=== PATIENT | male | born 1940 | race Caucasian/White ===

== ENCOUNTER 2019-12-16 00:13 | Outpatient (CLI) | payer MEDICARE, SELFPAY ==
[2019-12-16 18:40] LABS: SARS-CoV-2 RNA PCR Negative
== END 2019-12-16 00:14 | disposition home or self-care (01) ==
LOC: ANHCOVIDDT 00:13
PROVIDERS: PCP Family Medicine; Visit Provider Specialist
DX: Z01.818 Encounter for other preprocedural examination (principal); Z11.59 Encounter for screening for other viral diseases
CPT/HCPCS: 87635; C9803; U0003

== ENCOUNTER 2019-12-19 05:40 | Day surgery (SDC) | payer MEDICARE, SELFPAY ==
[2019-12-18 14:47] VITALS: BMI 31.4
[2019-12-19] VITALS (8 sets, daily range): BP systolic 90–113; BP diastolic 51–62; PULSE 47–68; RESP 12–16; TEMP 36.1; O2SAT 98–100; BMI 31.8
--- NOTE | 2019-12-19 | ECHO_ITS ---
Patient Info Name: Freddy Mireles Age: 79 years : 1940 Gender: Male Ht: 74 in Wt: 248 lbs BSA: 2.45 m2 HR: 67 bpm BP: 115 / 65 mmHg Heart Rhythm: Atrial Flutter Technical Quality: Good Exam Date: 12/19/2019 10:47 AM Exam Location: [facility] Patient Status: Outpatient Admit Date: 12/19/2019 Staff Ordering Physician: Tony Miller MD Wire Coiler: Dario Shoemaker RDCS Attending Provider: Tony Miller MD Referring Physician: Paul VELAZQUEZ; Exam Type: CA echo transesophageal Study Info Indications 427.32 - Atrial flutter Complete two-dimensional, color flow and Doppler transesophageal study is performed. History/Risk Factors Atrial flutter w/ cardioversion. Procedure Details The patient arrived in a fasting state after obtaining informed consent. The transesophageal probe was passed into the posterior pharynx, mid-esophagus, distal esophagus, and gastric fundus. Imaging was performed at multiple levels. The patient tolerated the procedure well and there were no complications. The patient was transferred out of the examination area in satisfactory condition. Summary 1. The patient arrived in a fasting state after obtaining informed consent. The transesophageal probe was passed into the posterior pharynx, mid-esophagus, distal esophagus, and gastric fundus. Imaging was performed at multiple levels. The patient tolerated the procedure well and there were no complications. The patient was transferred out of the examination area in satisfactory condition. 2. The mitral valve appears to be anatomically normal there is mild to moderate mitral regurgitation. 3. The atrial septum appears to be intact and unremarkable in appearance. 4. Limited transesophageal echocardiogram done prior to cardioversion showing no evidence of left atrial thrombus. Left Atria The left atrium is markedly dilated. There was no evidence of thrombus in the left atrium or in the appendage. Atrial Septum The atrial septum appears to be intact and unremarkable in appearance. Mitral Valve The mitral valve appears to be anatomically normal there is mild to moderate mitral regurgitation. Report Signatures
--- NOTE | 2019-12-19 05:59 | ECG_ITS ---
Measurements Intervals [place] Rate: 59 P: [place]: 0 QRS: 5 QRSD: 106 T: 116 QT: 420 QTc: 419 Interpretive Statements ATRIAL FLUTTER/TACHYCARDIA WITH SLOW VENTRICULAR RESPONSE LOW QRS VOLTAGE IN PRECORDIAL LEADS NONSPECIFIC ST & T-WAVE ABNORMALITY- HIGH LATERAL LEADS BASELINE ARTIFACT- I, II, III, AVR, AVL, AVF ABNORMAL ECG Electronically Signed On 12-19-2019 8:53:36 CDT by Sanya Stewart D.O.
--- NOTE | 2019-12-19 08:40 | SUR.PREOP ---
ARRIVES VIA WC TO [facility] 5 WITH OWN HOME O2 GENERATOR ON 2L FOR SCHEDULED ANDERSON / CV W/ ANESTHESIA W/ DR. CHAVEZ. DENIES CP OR SOB ON ARRIVAL. ORIENTED TO ROOM, PROCEDURE, PLAN OF CARE. PRE EKG COMPLETED - SHOWS AFLUTTER. IV STARTED, LABS SENT, VS OBTAINED, CONSENT SIGNED. WILL MONITOR.
[2019-12-19 09:35] LABS: Blood Urea Nitrogen 34 mg/dL (9-20); Calcium 8.9 mg/dL (8.4-10.2); Carbon Dioxide 35 mmol/L (22-30); Chloride 100 mmol/L (98-107); Estimated CRCL calculation 53 ml/min; Estimated Glomerular Filt Rate 53; Glucose 121 mg/dL (75-110); Magnesium 2.4 mg/dL (1.6-2.3); Potassium 4.6 mmol/L (3.4-5.0); Sodium 137 mmol/L (137-145)
--- NOTE | 2019-12-19 10:11 | WPDANESEPPF ---
Anes - Initial Pre Proc Eval Procedure: Operation Date: 12/19/19 10:00 Proposed Procedures p Electrical Cardioversion - Tony Miller MD s Trans Esophageal Echo - Tony Miller MD Date/Time: 12/19/19 10:11 Surgeon: Tony Miller MD Pre Op Diagnosis: Atrial Fib Patient Data Age: 79 Gender: M Height: 6 ft 2 in Weight: 112.3 kg Last Vital Signs Temp 36.1 C L 12/19/19 09:00 Pulse 68 12/19/19 09:00 Resp 16 12/19/19 09:00 BP 113/62 12/19/19 09:00 Pulse Ox 100 12/19/19 09:00 Allergies Allergy/AdvReac Type Severity Reaction Status Date / Time rivaroxaban [From Xarelto] Allergy Unknown Verified 12/19/19 09:26 Home Medications Medication Instructions Recorded Confirmed Type albuterol sulfate 90 mcg/actuation 1 inhalation INHALATION Q4H 09/10/19 12/18/19 History aerosol inhaler aspirin 325 mg tablet,delayed 325 mg PO DAILY 09/10/19 12/18/19 History release finasteride 5 mg tablet 5 mg PO DAILY 09/10/19 12/18/19 History rosuvastatin 5 mg tablet 5 mg PO DAILY 09/10/19 12/18/19 History cholecalciferol (vitamin D3) 50 50 mcg PO DAILY #1 cap 09/11/19 12/18/19 Rx mcg (2,000 unit) capsule fenofibric acid (choline) 135 mg 135 mg PO DAILY 09/11/19 12/18/19 History capsule,delayed release fluticasone fur. 100 mcg-umeclid 1 inhalation INHALATION Q24H 60 09/11/19 12/18/19 Rx 62.5 mcg-vilant 25 mcg Days #60 each inhalat.powder furosemide 40 mg tablet 40 mg PO QAM 09/11/19 12/18/19 History multivitamin 1 cap PO DAILY 09/11/19 12/18/19 History omega3-dha 200 mg-epa 300 mg-othr 1 cap PO DAILY 09/11/19 12/18/19 History om3 100 mg-fish oil 1,000 mg capsule sacubitril 24 mg-valsartan 26 mg 1 tablet PO BID 09/11/19 12/18/19 History tablet solifenacin 10 mg tablet 10 mg PO DAILY 09/11/19 12/18/19 History sotalol 80 mg tablet 80 mg PO BID tablet 09/11/19 12/19/19 History pregabalin 100 mg capsule 100 mg PO TID #90 cap 09/22/19 12/18/19 Rx tamsulosin 0.4 mg capsule 0.4 mg PO DAILY #90 cap 11/07/19 12/18/19 Rx amitriptyline 10 mg tablet See Rx Instructions .ROUTE 12/03/19 12/18/19 Rx .COMPLEX #90 tablet apixaban [Eliquis] 5 mg PO BID 12/18/19 12/19/19 History metformin 500 mg PO DAILY 12/18/19 12/18/19 History Laboratory Tests 12/19/19 08:54 Sodium 137 mmol/L mmol/L (137-145) Potassium 4.6 mmol/L mmol/L (3.4-5.0) Chloride 100 mmol/L mmol/L (98-107) Carbon Dioxide 35 mmol/L H mmol/L (22-30) BUN 34 mg/dL H mg/dL (9-20) Creatinine 1.30 mg/dL mg/dL (0.7-1.3) Estim Creat Clear Calc 53 ml/min ml/min Estimated GFR 53 L (59 - ) Glucose 121 mg/dL H mg/dL (75-110) Calcium 8.9 mg/dL mg/dL (8.4-10.2) Magnesium 2.4 mg/dL H mg/dL (1.6-2.3) Patient hx anesthesia problems: none Family hx anesthesia problems: none [facility] Past Medical History Medical History Chronic respiratory failure with hypoxia and hypercapnia Coronary artery disease Hyperlipidemia Surgical History Surgical History History of angioplasty History of lumbar laminectomy Family History Family History Sibling Diabetes mellitus Mother Family history of Alzheimer's disease, Onset Age: 76 Family history of Parkinson's disease Father Family history of coronary artery disease Other Hypertension Social History Social History Smoking packs per day: 2 Smoking cigarettes per day: 40.0 Years smoked: 30 Smoking pack-years: 60.00 Smoking status: Former smoker Tobacco type: cigarettes Second hand tobacco smoke exposure: No Smoking end date: 07/30/87 Alcohol intake: current Gender identity (if verbalized by the patient): Male Anes - Eval Final PreProcedure Day of Pr
--- NOTE | 2019-12-19 11:04 | WPDCARDPROC ---
Cardiac Cath Procedure Note Date of procedure:: 12/19/19 Performing physician:: Tony Miller MD Indication:: Symptomatic atrial flutter Brief clinical history:: 79-year-old man with a history of coronary artery disease, ischemic cardiomyopathy and prior history of atrial fibrillation which was symptomatic with the breathlessness and fatigue. He presents with recurrent symptoms of this nature and is found to now be in atrial flutter. He has been maintained on antiarrhythmic therapy with sotalol. He has not been chronically anticoagulated, was started on anticoagulation last week but because of this reason esophageal echo was recommended prior to attempting cardioversion today. Procedure Procedure performed:: Transesophageal echo/cardioversion Sedation/Medication given:: Per anesthesia service, please see their note Estimated blood loss:: No blood loss Procedure note:: Patient was in the postanesthesia care unit where he was sedated by the anesthesia service. Prior to sedation he received topical benzocaine spray for oropharyngeal anesthesia. After this esophageal echo was performed easily. The ANDERSON probe was placed into the esophagus and the left atrium was imaged in several planes an good quality imaging. There was no evidence of left atrial clot the atrial appendage was visualized there was no evidence of visible thrombus in the appendage. The patient's mitral valve leaflets and aortic valve leaflets looked normal. Color Doppler demonstrated modest mitral insufficiency. Following confirmation of the absence of atrial thrombus the patient was cardioverted with 200 joules in a synchronized fashion restoring sinus rhythm. Findings:: As detailed above successful cardioversion following confirmation of no left atrial thrombus Conclusion:: Successful cardioversion of atrial flutter restoring sinus rhythm using 200 joules x1 shock Tony Miller MD [facility]
--- NOTE | 2019-12-19 13:38 | SUR.PHASEII ---
REVIEWED DISCHARGE INSTRUCTIONS W/ PT. AND COPY GIVEN. VOICED UNDERSTANDING OF ALL. DISCHARGED HOME, OUT VIA WC WITH ALL PERSONAL BELONGINGS AND HOME O2 VIA WC TO 'S WAITING VEHICLE. NO DISTRESS NOTED.
== END 2019-12-19 13:38 | disposition home or self-care (01) ==
PROVIDERS: PCP Family Medicine; Visit Provider Specialist
PROC: (CPT 93312; principal; 2019-12-19 10:00)
PROC: 5A2204Z Restoration of Cardiac Rhythm, Single (ICD-10-PCS; 2019-12-19 10:00)
DX: I48.92 Unspecified atrial flutter (principal); I25.10 Atherosclerotic heart disease of native coronary artery without angina pectoris; J96.12 Chronic respiratory failure with hypercapnia; J96.11 Chronic respiratory failure with hypoxia; E78.5 Hyperlipidemia, unspecified; Z87.891 Personal history of nicotine dependence; E66.9 Obesity, unspecified; Z68.31 Body mass index [BMI] 31.0-31.9, adult
CPT/HCPCS: 36415; 80048; 83735; 87635; 92960; 93005; 93312; 93320; 93325; C9803; J7040; U0003

== ENCOUNTER 2019-12-20 23:28 | Inpatient (IN) | payer MEDICARE, SELFPAY ==
--- NOTE | ~2019-12-20 | XR_ITS ---
XR chest port-a-cath/central DATE: 12/21/2019 03:02 INDICATION: Central line placement TECHNIQUE: Portable AP chest on 12/21/2019 at 0257 hours COMPARISON: 12/20/2019 portable AP chest at 2352 hours FINDINGS: Interval right internal jugular central venous catheter placement, catheter tip overlying s uperior vena cava. No evidence of pneumothorax. ET tube tip 3.1 cm above emilie, in satisfactory position. A nasogastric tube is noted passing into t he stomach. Relatively stable severe bilateral pulmonary infiltrates which are more prominent centrally and in th e basilar lung zones, right greater than left, suggesting pulmonary edema. Pneumonia is not excluded. Cardiac megaly. Aortic calcification. IMPRESSION: Interval right internal jugular central venous catheter placement in superior vena cava; no evidence of pneumothorax Persistent severe bilateral pulmonary infiltrates, relatively stable since 12/20/2019 Reviewed, dictated and finalized at [facility]. Reviewed, dictated and finalized at location [facility]. IMPRESSION: Interval right internal jugular central venous catheter placement i n superior vena cava; no evidence of pneumothorax Persistent severe bilateral pulmonary infiltrates, relatively stable since 12/19
--- NOTE | ~2019-12-20 | XR_ITS ---
XR abdomen NG/feed tube insert DATE: 12/21/2019 00:00 INDICATION: Nasogastric tube placement; check position TECHNIQUE: Portable AP view on 12/21/2019 at 0000 hours COMPARISON: 03/13/2019 portable AP view of the abdomen FINDINGS: A nasogastric tube is present within the gastric fundus, the proximal side-port approximate ly 8.5 cm distal to the diaphragmatic hiatus. Nonspecific upper abdominal bowel gas pattern. Lower abdomen is excluded. There is evidence of bilateral pulmonary infiltrate. IMPRESSION: NG tube in gastric fundus Reviewed, dictated and finalized at [facility]. Reviewed, dictated and finalized at location [facility]. IMPRESSION: NG tube in gastric fundus
--- NOTE | ~2019-12-20 | XR_ITS ---
EXAMINATION: XR chest 1V portable EXAM DATE: 12/22/2019 06:10 INDICATION: Respiratory failure. TECHNIQUE: Portable AP frontal chest x-ray was obtained. Comparison is made to prior examination from 12/21/2019. FINDINGS: Endotracheal tube tip is 2-3 centimeters above the emilie (ideal range is between 2 to 5 cm ). There is a right-sided IJ central venous line in position. There is a feeding tube tip also in po sition. Moderate amount of right-sided predominant acute airspace disease. Small left pleural effusion. The re is no pneumothorax suspected. The cardiomediastinal silhouette is prominent but magnified on thi s AP technique. The bones and soft tissues are unremarkable. There is been some interval improveme nt in the airspace disease. IMPRESSION: 1. Line(s) and tube(s) in position. 2. Moderate right-sided predominant airspace disease with some interval improvement. 3. Small left pleural effusion. Reviewed, dictated and finalized at location [facility]. IMPRESSION: 1. Line(s) and tube(s) in position. 2. Moderate right-sided predominant airspace disease with some interval improv ement. 3. Small left pleural effusion.
--- NOTE | ~2019-12-20 | US_ITS ---
EXAMINATION: US retroperitoneal duplex ltd EXAM DATE: 12/23/2019 18:09 INDICATION: Flash Pulmonary edema. TECHNIQUE: Multiple grayscale and Doppler images of the kidneys and renal arteries were obtained. T here is no prior study for comparison. FINDINGS: The aorta peak systolic velocity is 61 cm/s. The right renal artery peak systolic velocity is 186 cm/ s in the proximal segment, 176 cm/s in the mid segment, and 142 cm/s in the distal segment. The left renal artery peak systolic velocity is 212 cm/s in the proximal segment, 189 cm/s in the mid segment, and 173 cm/s in the distal segment. IMPRESSION: 1. Mildly elevated left renal arterial velocity proximally, may indicate greater than 50-60% stenosi s. 2. Borderline elevated right renal artery velocities. Reviewed, dictated and finalized at location A. IMPRESSION: 1. Mildly elevated left renal arterial velocity proximally, may indicate great er than 50-60% stenosis. 2. Borderline elevated right renal artery velocities.
--- NOTE | ~2019-12-20 | XR_ITS ---
EXAMINATION: XR chest 1V portable DATE: 12/23/2019 05:39 INDICATION: Pulmonary edema. Acute respiratory failure. TECHNIQUE: A single frontal view of the chest was obtained. COMPARISON: Chest single view 12/22/2019, chest CT 01/22/2017 FINDINGS: There are airspace opacities in right mid and lower lung zones and left lower lung zone. No pleural effusion or pneumothorax. The heart size is normal. The endotracheal tube tip is 3.0 cm abov e the emilie. The nasogastric tube tip is in the stomach. A right internal jugular central venous cat heter is seen with tip in the superior vena cava. IMPRESSION: 1. Airspace opacities in right mid and lower lung zones and left lower lung zone with interval improv ement on the right, consistent with pulmonary edema versus pneumonia. Reviewed, dictated and finalized at location A. IMPRESSION: 1. Airspace opacities in right mid and lower lung zones and left lower lung zon e with interval improvement on the right, consistent with pulmonary edema versu s pneumonia.
--- NOTE | ~2019-12-20 | XR_ITS ---
EXAMINATION: XR chest 1V portable DATE: 12/24/2019 06:00 INDICATION: Pulmonary edema. Acute respiratory failure. TECHNIQUE: A single frontal view of the chest was obtained. COMPARISON: Chest single view 12/23/2019, chest CT 01/22/2017 FINDINGS: There are airspace opacities at left lung base. No pleural effusion or pneumothorax. The he art size is normal. There is a prominent left paracardial fat pad. A right internal jugular central v enous catheter is seen with tip in the superior vena cava. IMPRESSION: 1. Airspace opacities at left lung base with improvement, consistent with atelectasis versus pneumoni a. Reviewed, dictated and finalized at location A. IMPRESSION: 1. Airspace opacities at left lung base with improvement, consistent with atele ctasis versus pneumonia.
--- NOTE | ~2019-12-20 | XR_ITS ---
XR chest ET placement DATE: 12/21/2019 00:00 INDICATION: Respiratory failure. Intubation. TECHNIQUE: Portable AP chest on 12/20/2019 at 2352 hours COMPARISON: 03/16/2019 portable AP chest at 0542 hours FINDINGS: ET tube tip is in satisfactory position approximately 4.5 cm above emilie. A nasogastric tu be is noted passing into the stomach, the distal portion excluded from this chest radiograph. There are severe bilateral pulmonary infiltrates which are more prominent centrally suggesting pulmon ana rosa edema. Mild prominence of the minor fissure suggests subpleural edema. Kev B-lines suggest pul monary interstitial edema. There is minimal if any pleural effusion. No pneumothorax. Heart size appears within normal limits. There is aortic arch calcification. IMPRESSION: Severe bilateral pulmonary infiltrates, predominating centrally, suggesting pulmonary natacha ma. Pneumonia is not excluded ET tube in satisfactory position Reviewed, dictated and finalized at [facility]. Reviewed, dictated and finalized at location A. IMPRESSION: Severe bilateral pulmonary infiltrates, predominating centrally, grayson ggesting pulmonary edema. Pneumonia is not excluded ET tube in satisfactory position
[2019-12-20 23:24] VITALS: BP 153/80; PULSE 81; RESP 25; TEMP 35.9; O2SAT 81
[2019-12-20 23:25] VITALS: O2SAT 84
--- NOTE | 2019-12-20 23:35 | ECG_ITS ---
Measurements Intervals [place] Rate: 85 P: 98 [place]: 205 QRS: 40 QRSD: 116 T: 55 QT: 351 QTc: 418 Interpretive Statements SINUS RHYTHM INTRAVENTRICULAR CONDUCTION DELAY LOW QRS VOLTAGE IN PRECORDIAL LEADS BORDERLINE R WAVE PROGRESSION, ANTERIOR LEADS BORDERLINE ST-T WAVE ABNORMALITY- INF/LAT LEADS BASELINE WANDER- I, II, AVR, AVL, AVF, V1, V3 BORDERLINE ECG Electronically Signed On 12-21-2019 7:24:28 CDT by Sanya Stewart D.O.
--- NOTE | 2019-12-20 23:44 | ED.SOB ---
HPI - SOB/Dyspnea General Chief Complaint: Shortness of Breath/Dyspnea Stated Complaint: resp distress Time Seen by Provider: 12/20/19 23:35 Related Data Home Medications Medication Instructions Recorded Confirmed finasteride 5 mg tablet 5 mg PO DAILY 09/10/19 12/21/19 rosuvastatin 5 mg tablet 5 mg PO DAILY 09/10/19 12/21/19 fenofibric acid (choline) 135 mg 135 mg PO DAILY 09/11/19 12/21/19 capsule,delayed release furosemide 40 mg tablet 40 mg PO BID 09/11/19 12/21/19 multivitamin 1 cap PO DAILY 09/11/19 12/21/19 omega3-dha 200 mg-epa 300 mg-othr 1 cap PO BID 09/11/19 12/21/19 om3 100 mg-fish oil 1,000 mg capsule sacubitril 24 mg-valsartan 26 mg 1 tablet PO BID 09/11/19 12/21/19 tablet solifenacin 10 mg tablet 10 mg PO HS 09/11/19 12/21/19 sotalol 80 mg tablet 80 mg PO BID tablet 09/11/19 12/21/19 Eliquis 5 mg PO BID 12/18/19 12/21/19 metformin 2,000 mg PO DAILY 12/18/19 12/21/19 Trelegy Ellipta 1 inh INHALATION DAILY 12/19/19 12/21/19 amitriptyline 10 mg PO 1500 12/19/19 12/21/19 clopidogrel 75 mg PO DAILY 12/19/19 12/21/19 cyanocobalamin (vitamin B-12) 500 mcg PO DAILY 12/19/19 12/21/19 [Vitamin B-12] aspirin [Adult Low Dose Aspirin] 81 mg PO DAILY 12/21/19 12/21/19 Allergies Allergy/AdvReac Type Severity Reaction Status Date / Time rivaroxaban [From Xarelto] Allergy Intermediate Hives Verified 12/21/19 00:42 [facility] Past Medical History Medical History Atrial fibrillation Chronic respiratory failure with hypoxia and hypercapnia Coronary artery disease Diabetes mellitus Diastolic heart failure H/O: HTN (hypertension) Hyperlipidemia Surgical History Surgical History History of angioplasty History of lumbar laminectomy Family History Family History Sibling Diabetes mellitus Mother Family history of Alzheimer's disease, Onset Age: 76 Family history of Parkinson's disease Father Family history of coronary artery disease Hypertension Cerebrovascular accident Chronic obstructive pulmonary disease Congestive heart failure Social History Social History Smoking packs per day: 2 Smoking cigarettes per day: 40.0 Years smoked: 30 Smoking pack-years: 60.00 Smoking status: Former smoker Tobacco type: cigarettes Second hand tobacco smoke exposure: No Smoking end date: 07/30/87 Alcohol intake: current Drinks per week: 1 Substance use: never Gender identity (if verbalized by the patient): Male Spiritual care concerns: No Course Vital Signs Vital signs: Vital Signs Temperature 35.9 C L 12/20/19 23:24 Pulse Rate 81 12/20/19 23:24 Respiratory Rate 25 H 12/20/19 23:24 Blood Pressure 153/80 H 12/20/19 23:24 Pulse Oximetry 81 L 12/20/19 23:24 Temperature 36.3 C L 12/21/19 04:00 Pulse Rate 47 L 12/21/19 06:00 Respiratory Rate 18 12/21/19 06:00 Blood Pressure 91/57 L 12/21/19 06:00 Pulse Oximetry 100 12/21/19 06:00 Procedures Intubation Intubation #1: sedative: Etomidate Mg Given: 20 paralytic: Rocuronium Mg Given: 50 Laryngoscope: Brijesh Tube Size (cm): 8.0 Method of Intubation: orotracheal Number of Attempts: 1 Tube Placement Confirmation: visualized tube passing through cords, equal breath sounds bilaterally, no breath sounds over epigastrium and confirmation by capnometry Patient Tolerated Procedure: well Intubation Complications: none MDM - SOB/Dyspnea Lab Data Attestation: I reviewed the patient's lab results. Result diagrams: 12/21/19 04:38 12/21/19 04:38 Labs: Lab Results 12/20/19 12/20/19 12/21/19 Range/Units 23:42 23:42 00:06 WBC (4.5-10.0) K/mm3 RBC (4.6-6.20) M/mm3 Hgb
[2019-12-20 23:58] VITALS: PULSE 77; O2SAT 93
[2019-12-21] VITALS (34 sets, daily range): BP systolic 71–133; BP diastolic 43–86; PULSE 47–73; RESP 16–24; TEMP 36.3–37.2; O2SAT 95–100
--- NOTE | 2019-12-21 00:02 | PC.NURSE ---
Addendum entered by Sheridan Mccain RN 12/21/19 00:55: ALL ORDERS IN THIS NOTE EXECUTED PER RBVO FROM EDP DR WATTS. Original Note: LATE ENTRY NOTE; AT 2329 20 MG ETOMIDATE GIVEN IVP VIA LEFT FOREARM #18 G IV, THEN AT 2330 50MG ROCURONIUM GIVEN IVP VIA LEFT FOREARM #18 G IV. AT 2331 PT INTUBATED BY EDP DR WATTS SUCCESSFULLY ON FIRST ATTEMPT WITH 8.0 ETT TO 28 AT THE LIP. RT AT BEDSIDE SECURING ETT, GOOD COLOR CHANGE ON CO2 DETECTOR NOTED AND +BREATH SOUNDS AUSCULTATED BILATERALLY. AT 2334 4MG VERSED GIVEN IVP VIA LEFT FOREARM #18G IV, AND AT 2337 DIPROVAN GTT STARTED VIA RAC #18G IV AT A RATE OF 5MCG/KG/MIN.
[2019-12-21 00:13] LABS: NT Pro B Type Natriuretic Pept 868 PG/ML (5-100)
[2019-12-21 00:16] LABS: Alveolar/Arterial O2 Gradient 576.6 mmHg; Base Excess ABG 0.8 mEq/l (+/-2.0); Carboxyhemoglobin 0.8 % THb (0-2.0); Fractional Inspired Oxygen 100 %; HCO3 ABG 28.6 mEq/l (22.0-26.0); Oxygen Content ABG 15.6 %vol (16.0-22.0); Oxygen Saturation ABG 93.3 % (95.0-100.0); Oxyhemoglobin 90.7 % THb (90.0-100.0); PO2 ABG 75.5 mmHg (80.0-100.0); PO2 FiO2 Ratio Arterial Blood 0.75 %; Reduced Hemoglobin 8.5 %THb (0-5.0); Total Hemoglobin 12.2 g/dL (12.0-18.0)
[2019-12-21 00:17] LABS: pH ABG 7.289 (7.350-7.450)
--- NOTE | 2019-12-21 00:17 | PC.NURSE ---
DIPROVAN GTT INCREASED TO 7.5MCG/KG/MIN FOR PT AGITATION.
[2019-12-21 00:18] LABS: Device VENTILATOR; Modified Allen's Test Pass; PCO2 ABG 60.9 mmHg (35.0-45.0); Site Drawn RIGHT RADIAL
[2019-12-21 00:19] LABS: Troponin I 0.013 ng/mL (0.000-0.034)
[2019-12-21 00:19] LABS: Arterial Blood Gas PEEP 5 cmH2O; Arterial Blood Gas Tidal Volume 500 ml; Arterial Blood Gas Vent Mode CMV; Arterial Blood Gas Ventilator rate 18 /MIN
[2019-12-21 00:20] LABS: Basophils Percent Auto 0.1 % (0.2-1.2); Eosinophils Percent Auto 0.2 % (0-4.4); Hematocrit 38.7 % (42.0-52.0); Hemoglobin 12.5 g/dL (14.0-18.0); Immature Granulocyte Absolute 0.07 K/mm3 (0.00-0.031); Immature Granulocyte Percent A 0.7 % (0-0.5); Lymphocytes Absolute Auto 1.64 K/mm3 (0.9-3.2); Lymphocytes Percent Auto 16.3 % (18.3-44.2); Mean Corpuscular HGB Conc 32.3 g/dl (32-36); Mean Corpuscular Hemoglobin 36.8 pg (26-34); Mean Corpuscular Volume 113.8 fl (80-100); Mean Platelet Volume 10.6 fl (7.4-10.4); Monocytes Absolute Auto 0.8 K/mm3 (0.1-0.6); Monocytes Percent Auto 8.3 % (2.6-8.5); Neutrophils Absolute Auto 7.5 K/mm3 (1.3-6.7); Neutrophils Percent Auto 74.4 % (45.5-73.1); Platelet Count Result 164 k/mm3 (150-375); Red Cell Distribution Width 14.1 % (11.5-14.5); White Blood Count 10.1 K/mm3 (4.5-10.0)
--- NOTE | 2019-12-21 00:22 | PC.NURSE ---
DIPROVAN DRIP INCREASED TO 10 MCG/KG/MIN AT THIS TIME FOR PT AGITATION.
[2019-12-21] MEDS: FUROSEMIDE INJ 40 MG/4 ML VIAL IV PUSH ×2 (00:28→08:32)
[2019-12-21 00:29] LABS: INR 1.1
[2019-12-21 00:30] LABS: Lactic Acid Reflex 1.1 mmol/L (0.7-2.1); Partial Thromboplastin Time 30.7 SECONDS (22.3-36.8)
[2019-12-21 00:33] LABS: D Dimer 0.56 ug/mL (<0.48)
[2019-12-21 00:38] LABS: Alanine Aminotransferase 23 U/L (4-50); Albumin Level 4.6 g/dL (3.5-5.1); Alkaline Phosphatase 73 U/L (38-126); Aspartate Amino Transferase 35 U/L (17-59); Bilirubin,Total 0.5 mg/dL (0.2-1.3); Blood Urea Nitrogen 50 mg/dL (9-20); Calcium 8.6 mg/dL (8.4-10.2); Carbon Dioxide 31 mmol/L (22-30); Chloride 97 mmol/L (98-107); Estimated CRCL calculation 37 ml/min; Estimated Glomerular Filt Rate 34; Glucose 182 mg/dL (75-110); Lactate Dehydrogenase 551 U/L (313-618); Potassium 5.1 mmol/L (3.4-5.0); Sodium 137 mmol/L (137-145)
--- NOTE | 2019-12-21 00:39 | PC.NURSE ---
DIPROVAN INCREASED TO 15 MCG/KG/MIN FOR PT AGITATION; CURRENT VSS: 107/57, 65HR, 20 RR, 99% SPO2 ON 100% O2 VIA VENT.
--- NOTE | 2019-12-21 00:59 | PC.NURSE ---
DIPROVAN GTT DECREASED TO 10 MCG/KG/MIN FOR B/P OF 71/44. EDP AND THIS RN AT PT'S BEDSIDE AT THIS TIME.
--- NOTE | 2019-12-21 01:01 | PC.NURSE ---
MARIMAR MARTIN PAUSED AT THIS TIME PER EDP AT BEDSIDE WITH THIS RN. CURRENT B/P 71/45.
--- NOTE | 2019-12-21 01:10 | PC.NURSE ---
DIPROVAN RESUMED AT 10 MCG/KG/MIN AT THIS TIME. PT BECAME RESTLESS DURING SUCTIONING.
--- NOTE | 2019-12-21 02:10 | ADMGEN ---
This patient, Freddy Mireles Jr., was admitted to Intensive Care Unit-3. Patient/family oriented to hospital policies and general routines including ID bracelet, bed and alarms, visiting hours, pain management, procedures, bathroom and other care routines, personal items, smoking policy, room service/diet, and visiting hours. Valuables list has been completed. Information on how to activate the Rapid Response Team has been discussed. Patient/Family are encouraged to report perceived risks to care and to ask questions if they do not understand what they are told or what they should do.
[2019-12-21] MEDS: MIDAZOLAM HCL 2 MG/2 ML VIAL IV PUSH (02:31)
--- NOTE | 2019-12-21 03:09 | P.PCNBED_ITS ---
Procedures Central Line Placement Right IJ: Central Line Date: 12/21/19 Central Line Time: 03:09 Performed Emergently - Given emergent patient condition, temporal constraints may have precluded informed consent.: Yes Time Out Performed: Yes Patient Position: supine Patient placed on monitor/pulse ox: Yes Provider Prep: mask, sterile gown, sterile gloves, Max. sterile barrier precautions, cap and hand hygiene Ultrasound used for placement: Yes Central line lumen inserted: triple [place] Citizen: 7 Length (cm): 17 Depth of Insertion (cm): 16 Post procedure: sutured in place, good blood return, all ports aspirated, flushed, capped, tegaderm, hemostatic disc and aseptic technique maintained throughout procedure Post procedure x-ray: tip of catheter in good position and no pneumothorax seen Patient tolerated procedure: well Additional comments: Date of service was 12/21/2019 at 02:50 hrs.
--- NOTE | 2019-12-21 03:11 | PM.IMHP ---
H&P: HPI History of Present Illness Chief complaint: Acute respiratory failure Narrative: This is an 79 year old male with known chronic respiratory failure known to be on 3L of home oxygen, afib on chornic anticoagulation w/ Eliquis, and diabetes mellitus who presented to the hospital with acute severe shortness of breath. The patient was found to be saturating in the 70s in the ER and was emergently intubated and placed on mechanical ventilation. No other history is obtainable as the patient is intubated on mechanical ventilation and sedated. Review of Systems Review of Systems: ROS unobtainable: Yes unobtainable due to medical condition PMF Past Medical History Medical History Atrial fibrillation Chronic respiratory failure with hypoxia and hypercapnia Coronary artery disease Diabetes mellitus Diastolic heart failure H/O: HTN (hypertension) Hyperlipidemia Surgical History Surgical History History of angioplasty History of lumbar laminectomy Family History Family History Sibling Diabetes mellitus Mother Family history of Alzheimer's disease, Onset Age: 76 Family history of Parkinson's disease Father Family history of coronary artery disease Hypertension Cerebrovascular accident Chronic obstructive pulmonary disease Congestive heart failure Social History Social History Smoking packs per day: 2 Smoking cigarettes per day: 40.0 Years smoked: 30 Smoking pack-years: 60.00 Smoking status: Former smoker Tobacco type: cigarettes Second hand tobacco smoke exposure: No Smoking end date: 07/30/87 Alcohol intake: current Drinks per week: 1 Substance use: never Gender identity (if verbalized by the patient): Male Spiritual care concerns: No Meds Home Medications and Allergies Home Medications Medication Instructions Recorded Confirmed Type finasteride 5 mg tablet 5 mg PO DAILY 09/10/19 12/21/19 History rosuvastatin 5 mg tablet 5 mg PO DAILY 09/10/19 12/21/19 History cholecalciferol (vitamin D3) 50 50 mcg PO DAILY #1 cap 09/11/19 12/21/19 Rx mcg (2,000 unit) capsule fenofibric acid (choline) 135 mg 135 mg PO DAILY 09/11/19 12/21/19 History capsule,delayed release furosemide 40 mg tablet 40 mg PO BID 09/11/19 12/21/19 History multivitamin 1 cap PO DAILY 09/11/19 12/21/19 History omega3-dha 200 mg-epa 300 mg-othr 1 cap PO BID 09/11/19 12/21/19 History om3 100 mg-fish oil 1,000 mg capsule sacubitril 24 mg-valsartan 26 mg 1 tablet PO BID 09/11/19 12/21/19 History tablet solifenacin 10 mg tablet 10 mg PO HS 09/11/19 12/21/19 History sotalol 80 mg tablet 80 mg PO BID tablet 09/11/19 12/21/19 History tamsulosin 0.4 mg capsule 0.4 mg PO DAILY #90 cap 11/07/19 12/21/19 Rx Eliquis 5 mg PO BID 12/18/19 12/21/19 History metformin 2,000 mg PO DAILY 12/18/19 12/21/19 History Trelegy Ellipta 1 inh INHALATION DAILY 12/19/19 12/21/19 History amitriptyline 10 mg PO 1500 12/19/19 12/21/19 History clopidogrel 75 mg PO DAILY 12/19/19 12/21/19 History cyanocobalamin (vitamin B-12) 500 mcg PO DAILY 12/19/19 12/21/19 History [Vitamin B-12] pregabalin 100 mg capsule 100 mg PO TID #90 cap 12/19/19 12/21/19 Rx aspirin [Adult Low Dose Aspirin] 81 mg PO DAILY 12/21/19 12/21/19 History coenzyme Q10 [CoQ-10] 200 mg PO DAILY 12/21/19 12/21/19 History Allergies Allergy/AdvReac Type Severity Reaction Status Date / Time rivaroxaban [From Xarelto] Allergy Intermediate Hives Verified 12/21/19 00:42 Vital Signs Vital Signs - 24 hr 12/20/19 23:24 12/20/19 23:25 12/20/19 23:58 Temperature 35.9 C L Pulse Rate 81 77 Respiratory Rate 25 H Blood Pressure 153/80 H Pulse Oximetry 81 L 84 L 93 12/21/19 00:15 12/21/19 00:40 12/21/19 00:43
[2019-12-21] MEDS: NOREPINEPHRINE 8 MG/D5W 250 ML 8 MG/250 ML BAG 9.4 MG IV CONT (03:52)
--- NOTE | 2019-12-21 04:01 | ADMIMU ---
This patient, Freddy Mireles Jr., was admitted to ICU status, and placed in Intensive Care Unit-3 on 12/21/19 at 0210. Patient/family oriented to hospital policies and general routines including ID bracelet, bed and alarms, visiting hours, pain management, procedures, bathroom and other care routines, personal items, smoking policy, room service/diet, and visiting hours. Valuables list has been completed. Information on how to activate the Rapid Response Team has been discussed. Patient/Family are encouraged to report perceived risks to care and to ask questions if they do not understand what they are told or what they should do.
[2019-12-21 04:30] LABS: Alveolar/Arterial O2 Gradient 502.6 mmHg; Base Excess ABG 3.4 mEq/l (+/-2.0); Carboxyhemoglobin 0.1 % THb (0-2.0); Fractional Inspired Oxygen 90 %; HCO3 ABG 29.8 mEq/l (22.0-26.0); Methemoglobin ABG 0.3 %THb (0-1.5); Oxygen Content ABG 14.6 %vol (16.0-22.0); Oxygen Saturation ABG 95.6 % (95.0-100.0); Oxyhemoglobin 93.6 % THb (90.0-100.0); PCO2 ABG 54.4 mmHg (35.0-45.0); PO2 ABG 83.3 mmHg (80.0-100.0); PO2 FiO2 Ratio Arterial Blood 0.93 %; pH ABG 7.357 (7.350-7.450)
[2019-12-21 04:31] LABS: Arterial Blood Gas PEEP 5 cmH2O; Arterial Blood Gas Vent Mode CMV; Arterial Blood Gas Ventilator rate 18 /MIN; Device VENTILATOR; Modified Allen's Test Pass; Site Drawn RIGHT RADIAL
[2019-12-21 04:32] LABS: Arterial Blood Gas Tidal Volume 500 ml
[2019-12-21 05:03] LABS: Basophils Percent Auto 0.2 % (0.2-1.2); Eosinophils Percent Auto 0.1 % (0-4.4); Hematocrit 31.3 % (42.0-52.0); Hemoglobin 10.2 g/dL (14.0-18.0); Immature Granulocyte Absolute 0.05 K/mm3 (0.00-0.031); Immature Granulocyte Percent A 0.6 % (0-0.5); Lymphocytes Absolute Auto 1.69 K/mm3 (0.9-3.2); Lymphocytes Percent Auto 19.4 % (18.3-44.2); Mean Corpuscular HGB Conc 32.6 g/dl (32-36); Mean Corpuscular Hemoglobin 37.1 pg (26-34); Mean Corpuscular Volume 113.8 fl (80-100); Mean Platelet Volume 10.8 fl (7.4-10.4); Monocytes Absolute Auto 0.8 K/mm3 (0.1-0.6); Monocytes Percent Auto 9.6 % (2.6-8.5); Neutrophils Absolute Auto 6.1 K/mm3 (1.3-6.7); Neutrophils Percent Auto 70.1 % (45.5-73.1); Platelet Count Result 159 k/mm3 (150-375); Red Blood Count 2.75 M/mm3 (4.6-6.20); Red Cell Distribution Width 14.4 % (11.5-14.5); White Blood Count 8.7 K/mm3 (4.5-10.0)
[2019-12-21 05:11] LABS: Blood Urea Nitrogen 48 mg/dL (9-20); Carbon Dioxide 31 mmol/L (22-30); Chloride 99 mmol/L (98-107); Estimated CRCL calculation 35 ml/min; Estimated Glomerular Filt Rate 34; Glucose 143 mg/dL (75-110); Magnesium 2.4 mg/dL (1.6-2.3); Potassium 5.1 mmol/L (3.4-5.0); Sodium 135 mmol/L (137-145)
[2019-12-21 08:28] LABS: Alveolar/Arterial O2 Gradient 462.9 mmHg; Base Excess ABG 4.2 mEq/l (+/-2.0); Fractional Inspired Oxygen 90 %; HCO3 ABG 30.1 mEq/l (22.0-26.0); Oxygen Content ABG 14.9 %vol (16.0-22.0); Oxygen Saturation ABG 98.4 % (95.0-100.0); Oxyhemoglobin 96.4 % THb (90.0-100.0); PCO2 ABG 50.9 mmHg (35.0-45.0); PO2 ABG 126.6 mmHg (80.0-100.0); PO2 FiO2 Ratio Arterial Blood 1.41 %; Total Hemoglobin 10.8 g/dL (12.0-18.0); pH ABG 7.389 (7.350-7.450)
[2019-12-21 08:30] LABS: Arterial Blood Gas PEEP 5 cmH2O; Arterial Blood Gas Tidal Volume 500 ml; Arterial Blood Gas Vent Mode CMV; Arterial Blood Gas Ventilator rate 18 /MIN; Device VENTILATOR; Modified Allen's Test Pass; Site Drawn RIGHT RADIAL
--- NOTE | 2019-12-21 08:58 | WPDCNINT ---
Assessment and Plan Assessment and plan (1) Acute respiratory failure with hypoxia and hypercapnia: Code(s): J96.01 - Acute respiratory failure with hypoxia; J96.02 - Acute respiratory failure with hypercapnia Status: Acute Assessment and Plan: patient presented with severe hypoxia and dyspnea requiring emergent intubation in the ER on 12/20/2019 - patient currently on CMV mode of ventilation, 90% FiO2, peep of 5. - Chest x-ray and ABGs reviewed, wean FiO2 to maintain O2 sats greater than 92%. Increased peep to 8 - bilateral diffuse infiltrates on chest x-ray, no official read at this time is available. Patient also seems to have a right middle and lower lobe consolidation - patient will be started on ceftriaxone and doxycycline - will obtain sputum culture - fentanyl and Versed for sedation, maintain RASS of 0 to -2, daily sedation vacation (2) Suspected 2019 novel coronavirus infection: Code(s): Z20.828 - Contact with and (suspected) exposure to other viral communicable diseases Status: Acute Assessment and Plan: patient is being tested for SARS-CoV-2 PCR - currently placed on droplet, airborne and contact precautions/isolation if patient is COVID-19 positive will obtain inflammatory marker (3) Shock: Code(s): R57.9 - Shock, unspecified Status: Acute Assessment and Plan: patient dropped his blood pressures post intubation, could be related to positive pressure ventilation, septic shock, medications - central line was inserted on 12/20/2019: Started on Levophed, maintain mean arterial pressures > 65 mmHg - will obtain echocardiogram - continue antibiotics as above, blood cultures, sputum cultures and urine cultures have been obtained and pending (4) Diastolic heart failure: Code(s): I50.30 - Unspecified diastolic (congestive) heart failure Status: Acute Assessment and Plan: history of diastolic dysfunction, echocardiogram from 09/17/2018 showed normal LV systolic function, EF 60%, grade 2 diastolic dysfunction, moderate to severe enlargement of the left atrium, mild mitral valve regurg, - continue diuresis at this time (5) Atrial fibrillation: Qualifiers: Atrial fibrillation type: unspecified Qualified Code(s): I48.91 - Unspecified atrial fibrillation Code(s): I48.91 - Unspecified atrial fibrillation Status: Chronic Assessment and Plan: history of atrial fibrillation, currently in sinus bradycardia - will restart Eliquis - will have Cardiology evaluate the patient - patient was cardioverted with 200 joules at in a synchronized fashion restoring sinus rhythm on 12/19/[address] 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 insulin use: without service parts driver use Diabetes mellitus type: type 2 Qualified Code(s): E11.9 - Type 2 diabetes mellitus without complications Code(s): E11.9 - Type 2 diabetes mellitus without complications Status: Chronic Assessment and Plan: continue Accu-Cheks and sliding scale insulin (7) Hyperlipidemia: Qualifiers: Hyperlipidemia type: unspecified Qualified Code(s): E78.5 - Hyperlipidemia, unspecified Code(s): E78.5 - Hyperlipidemia, unspecified Status: Chronic Assessment and Plan: restart rosuvastatin (8) Essential hypertension: Code(s): I10 - Essential (primary) hypertension Status: Acute Assessment and Plan: history of essential hypertension, will hold all antihypertensives at this time as patient is in shock and Levophed (9) COPD (chronic obstructive pulmonary disease): Qualifiers: COPD type: unspecified COPD Qualified Code(s): J44.9 - Chronic obstructive pulmonary disease, unspecified Code(s): J44.9 - Chronic ob
[2019-12-21] MEDS: PANTOPRAZOLE SODIUM IV 40 MG VIAL IV PUSH (12:23)
[2019-12-21] MEDS: CLOPIDOGREL BISULFATE 75 MG TABLET PO (12:23)
[2019-12-21] MEDS: APIXABAN 5 MG TABLET PO ×2 (12:24→21:21)
[2019-12-21] MEDS: ROSUVASTATIN 5 MG TABLET PO (12:24)
[2019-12-21 12:47] LABS: Glucose Point of Care 155 (65-105)
[2019-12-21] MEDS: ALBUTEROL SULFATE NEB 2.5 MG/0.5 ML INH 5 MG INHALATION ×2 (14:01→21:06)
[2019-12-21] MEDS: IPRATROPIUM BR 0.02% INH SOLN 0.5 MG/2.5 ML VIAL INHALATION ×2 (14:01→21:06)
--- NOTE | 2019-12-21 15:13 | PM.CNCAR ---
Assessment and Plan Additional Plan Elderly white male with the above complex history of coronary disease, atrial fibrillation presenting with what appears to be abrupt pulmonary edema. The patient has had a number of these admissions over the last couple of years and frankly it is poorly understood to me. He does not appear to have evidence recurrent left main stenosis when he was brought back to the dentures lab technician after this. Of course that could be an issue since that angiogram was approximately a year ago. He does not appear to have recurrent atrial fib he is in sinus rhythm after being cardioverted on Sunday. His ANDERSON at that time did not show his mitral valve regurgitation to be severe enough to explain this. This patient I have known for a long time I do not believe we have a compliance issue regarding his medication he seems to be very compliant in taking all of his medications as prescribed. Obviously at this point he requires diuresis and hopefully eventual extubation. He does have an element of acute on chronic renal insufficiency with creatinine increasing from Sunday to this admission. Once again I do not think this is enough to explain profound severe acute pulmonary edema. Hopefully the patient's COVID assay will be negative as his prognosis would be grave if Coronavirus is the reason for this History of Present Illness History of Present Illness Consult date/time: Date of service: 12/21/19 15:13 Consult reason: congestive heart failure Reason For Visit: Acute respiratory failure Narrative: This is an interesting but unfortunate 79-year-old man that I am seeing at the request of the hospitalist an intensive care staff because of respiratory failure and what appears to be severe pulmonary edema. The patient is well known to me and a number of other physicians in our practice and here at [facility]. He has a long history of coronary artery disease and a history of atrial fibrillation. The patient was apparently in his usual state of weak but some but essentially stable health when he suddenly noticed severe air hunger he came to the emergency room last night and was in extremis with hypoxemia oxygen saturation was in the 70s. He was emergently intubated in the emergency department because of respiratory extremis. His chest x-ray appears to show severe pulmonary edema. Some of the physicians are concerned that he might also have a right lower lobe/right middle lobe consolidation. The patient was of course sedated and brought to the ICU for further evaluation and management. He is currently sedated in the ICU and therefore obviously no direct history is available. In summary he has a long history of coronary artery disease. 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 The patient also had an LAD intervention done in August of 1999. He did well for a long time after that. The patient in 2018 had a couple of admissions at this hospital with severe pulmonary edema. He was treated medically and brought back to the cardiac dentures lab technician at that time and found to have high-grade stenosis in the left main coronary artery as well as in the midportion of the RCA. He was referred to [facility] for anticipated surgical revascularization. When he arrived there he was felt by those physicians to be excessively high risk for surgery and he underwent a LAD and left main luciana guided stent by the interventional medical cost consultant at [facility]. He was sent back to my office for follow-up after that. He also has a history of atrial fibrillation and at times has had recurrences of atrial fib which would typically result in him being more short of breath and there has been a couple of attempts at cardioverting him back to sinus rhythm. He was maintaining sinus rhythm and was bradycardic on the sotalol dosage and so the dosage was reduced to 40 mg q.12 hours so
--- NOTE | 2019-12-21 17:40 | PM.IMPN ---
Progress Note: A&P Assessment and Plan (1) Acute respiratory failure with hypoxia and hypercapnia: Code(s): J96.01 - Acute respiratory failure with hypoxia; J96.02 - Acute respiratory failure with hypercapnia Status: Acute Assessment and Plan: Continue ventilatory support w/ mechanical ventilation. . Continue treatment for CHF which is felt to be the etiology of the respiratory failure but empirically treated with antibiotics as well as ruling out COVID. . (2) Acute heart failure with preserved ejection fraction (HFpEF): Code(s): I50.31 - Acute diastolic (congestive) heart failure Status: Acute Assessment and Plan: Continue IV lasix. Preserved ventricular function by previous echoes. 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 (4) Atrial fibrillation: Qualifiers: Atrial fibrillation type: unspecified Qualified Code(s): I48.91 - Unspecified atrial fibrillation Code(s): I48.91 - Unspecified atrial fibrillation Status: Chronic Assessment and Plan: Continue Elquis therapy., sotalol held initially with bradycardia. Status post kezia cardioversion 12/19/19 (5) H/O: HTN (hypertension): Code(s): Z86.79 - Personal history of other diseases of the circulatory system Status: Chronic Assessment and Plan: Hold home antihypertensives with hypotension (6) COPD (chronic obstructive pulmonary disease): Qualifiers: COPD type: unspecified COPD Qualified Code(s): J44.9 - Chronic obstructive pulmonary disease, unspecified Code(s): J44.9 - Chronic obstructive pulmonary disease, unspecified Status: Chronic Assessment and Plan: We will continue scheduled bronchodilators. (7) Hyperlipidemia: Qualifiers: Hyperlipidemia type: unspecified Qualified Code(s): E78.5 - Hyperlipidemia, unspecified Code(s): E78.5 - Hyperlipidemia, unspecified Status: Chronic Assessment and Plan: Resume Crestor PO. (8) Acute kidney injury: Code(s): N17.9 - Acute kidney failure, unspecified Status: Acute Assessment and Plan: Monitor closely creatinine typically 1 to 1.3 (9) DVT prophylaxis: Code(s): Z29.9 - Encounter for prophylactic measures, unspecified Status: Acute Assessment and Plan: On Eliquis Subjective Date/time seen: 12/21/19 17:40 Interval history: Date of visit 12/20. 79-year-old hypertensive type 2 diabetic with paroxysmal AFib status post cardioversion after KEZIA 12/19/2019 presented with acute onset shortness of breath found to be in pulmonary edema hypoxic and was intubated and transferred to the ICU. Was hypotensive and pressors were started. Diuresing, cultured and an empiric antibiotics. Exam Narrative: Exam Narrative: Blood pressure 118/52 pulse 52 regular sat 100% on FiO2 of 60% with 8 of temp Pupils equal reactive Lungs faint basilar crackle on the right CV regular rate rhythm her no murmurs Abdomen is soft obese nontender bowel sounds present Extremities without edema distal pulses 2+ dorsalis pedis Neuro sedated but opens eyes Integument no skin breakdown rashes Objective Data Vital Signs Vital Signs: Vital Signs - 24 hr 12/20/19 23:24 12/20/19 23:25 12/20/19 23:58 Temperature 35.9 C L Pulse Rate 81 77 Respiratory Rate 25 H Blood Pressure 153/80 H Pulse Oximetry 81 L 84 L 93 12/21/19 00:15 12/21/19 00:40 12/21/19 00:43
[2019-12-21 17:51] LABS: Glucose Point of Care 141 (65-105)
[2019-12-22] VITALS (26 sets, daily range): BP systolic 93–115; BP diastolic 42–59; PULSE 42–76; RESP 18–23; TEMP 36.5–37.2; O2SAT 90–100
--- NOTE | 2019-12-22 | ECHO_ITS ---
Patient Info Name: Freddy Mireles Age: 79 years : 1940 Gender: Male Ht: 72 in Wt: 231 lbs BSA: 2.33 m2 HR: 45 bpm BP: 105 / 44 mmHg Heart Rhythm: Bradycardia Technical Quality: Good Exam Date: 12/22/2019 8:36 AM Exam Location: [facility] Patient Status: Inpatient Admit Date: 12/21/2019 Staff Ordering Physician: Edwardo Solorzano MD System Safety Engineer: Dario Shoemaker RDCS Attending Provider: Iglesia Boogie MD Referring Physician: Rashad DANIELS; Exam Type: CA echo doppler color flow Study Info Indications I50.9 - Heart failure, unspecified Complete two-dimensional, color flow and Doppler transthoracic echocardiogram is performed. Strain analysis performed. History/Risk Factors Acute respiratory failure; pulmonary edema, CHF, Aflutter s/p cardioversion, CAD, DM, HTN. Summary 1. Left ventricular systolic function is normal, estimated at 55-60%. 2. The left ventricular diastolic function is grade II diastolic dysfunction. 3. The base of the inferior and posterior montelongo are akinetic the remainder of the ventricle contracts well. 4. Left atrial chamber dimension is severely enlarged. 5. There is mild to moderate mitral valve regurgitation. 6. Compared to echocardiogram done in February of 2019 there are no substantial changes. Left Ventricle Left ventricular chamber dimension is normal. Left ventricular systolic function is normal, estimated at 55-60%. The left ventricular diastolic function is grade II diastolic dysfunction. The base of the inferior and posterior montelongo are akinetic the remainder of the ventricle contracts well. Right Ventricle Right ventricular chamber dimension is normal. Left Atria Left atrial chamber dimension is severely enlarged. Right Atria Right atrial chamber dimension is normal. Aortic Valve The aortic valve is trileaflet. There is mild aortic valve stenosis with a peak velocity of 145 cm/s, mean gradient of 4 mmHg, and aortic valve area of 3.3 cm2. Pulmonic Valve The pulmonic valve is not well visualized. Mitral Valve The mitral valve has thickened leaflets. There is mild to moderate mitral valve regurgitation. Tricuspid Valve The tricuspid valve leaflets are normal. Pericardium/Pleural The pericardium appears normal. Aorta The aortic root size at the sinus of Valsalva is normal. Left Ventricular Outflow Tract Name Value Normal LVOT 2D LVOT Diameter 2.3 cm LVOT Doppler LVOT Peak Gradient 5 mmHg LVOT Mean Gradient 2 mmHg LVOT VTI 25 cm LVOT VTI/AV VTI Ratio 0.8 LVOT Stroke Volume 104 ml LVOT CO 4.8 l/min LVOT CI 2.1 l/min/m2 Mitral Valve Name Value Normal MV Doppler
[2019-12-22 00:24] LABS: Glucose Point of Care 150 (65-105)
[2019-12-22] MEDS: ALBUTEROL SULFATE NEB 2.5 MG/0.5 ML INH 5 MG INHALATION ×4 (02:28→19:55)
[2019-12-22] MEDS: IPRATROPIUM BR 0.02% INH SOLN 0.5 MG/2.5 ML VIAL INHALATION ×4 (02:29→19:55)
[2019-12-22 03:48] LABS: Hematocrit 28.7 % (42.0-52.0); Hemoglobin 9.3 g/dL (14.0-18.0); Mean Corpuscular HGB Conc 32.4 g/dl (32-36); Mean Corpuscular Hemoglobin 37.2 pg (26-34); Mean Corpuscular Volume 114.8 fl (80-100); Mean Platelet Volume 10.6 fl (7.4-10.4); Platelet Count Result 120 k/mm3 (150-375); Red Cell Distribution Width 13.9 % (11.5-14.5); White Blood Count 6.4 K/mm3 (4.5-10.0)
[2019-12-22 04:22] LABS: Alveolar/Arterial O2 Gradient 157.1 mmHg; Base Excess ABG 4.5 mEq/l (+/-2.0); Carboxyhemoglobin 0.3 % THb (0-2.0); Fractional Inspired Oxygen 45 %; HCO3 ABG 28.6 mEq/l (22.0-26.0); Methemoglobin ABG 0.2 %THb (0-1.5); Oxygen Content ABG 13.8 %vol (16.0-22.0); Oxygen Saturation ABG 98.5 % (95.0-100.0); Oxyhemoglobin 96.6 % THb (90.0-100.0); PCO2 ABG 40.5 mmHg (35.0-45.0); PO2 ABG 117.7 mmHg (80.0-100.0); PO2 FiO2 Ratio Arterial Blood 2.62 %; Reduced Hemoglobin 2.9 %THb (0-5.0); pH ABG 7.467 (7.350-7.450)
[2019-12-22 04:23] LABS: Arterial Blood Gas PEEP 8 cmH2O; Arterial Blood Gas Tidal Volume 500 ml; Arterial Blood Gas Vent Mode CMV; Arterial Blood Gas Ventilator rate 18 /MIN; Device VENTILATOR; Modified Allen's Test Unable to perform; Site Drawn LEFT RADIAL
[2019-12-22 04:32] LABS: Alanine Aminotransferase 15 U/L (4-50); Albumin Level 3.4 g/dL (3.5-5.1); Alkaline Phosphatase 40 U/L (38-126); Aspartate Amino Transferase 22 U/L (17-59); Blood Urea Nitrogen 40 mg/dL (9-20); Calcium 8.3 mg/dL (8.4-10.2); Carbon Dioxide 33 mmol/L (22-30); Chloride 98 mmol/L (98-107); Estimated CRCL calculation 44 ml/min; Estimated Glomerular Filt Rate 45; Glucose 144 mg/dL (75-110); Magnesium 2.4 mg/dL (1.6-2.3); Phosphorus 2.6 mg/dL (2.5-4.5); Potassium 4.3 mmol/L (3.4-5.0); Sodium 136 mmol/L (137-145)
[2019-12-22 05:49] LABS: Glucose Point of Care 143 (65-105)
--- NOTE | 2019-12-22 08:00 | WPDINTPN ---
Progress Note: A&P Assessment and Plan (1) Acute respiratory failure with hypoxia and hypercapnia: Code(s): J96.01 - Acute respiratory failure with hypoxia; J96.02 - Acute respiratory failure with hypercapnia Status: Acute Assessment and Plan: patient presented with severe hypoxia and dyspnea requiring emergent intubation in the ER on 12/20/2019 - patient currently on CMV mode of ventilation, decrease PEEP to 5 and FiO2 to 40% - Chest x-ray and ABGs reviewed, chest x-ray appears to be improved but does have bilateral infiltrates still present - continue ceftriaxone and doxycycline - cultures are pending - patient on Versed for sedation, maintain RASS of 0 to -2, daily sedation vacation - continue Lasix today and will plan for breathing trial later this afternoon (2) Suspected 2019 novel coronavirus infection: Code(s): Z20.828 - Contact with and (suspected) exposure to other viral communicable diseases Status: Acute Assessment and Plan: patient is being tested for SARS-CoV-2 PCR - currently placed on droplet, airborne and contact precautions/isolation CRP and LDH are normal (3) Shock: Code(s): R57.9 - Shock, unspecified Status: Acute Assessment and Plan: patient dropped his blood pressures post intubation, could be related to positive pressure ventilation, septic shock, medications - central line was inserted on 12/20/2019: Started on Levophed, maintain mean arterial pressures > 65 mmHg - will obtain echocardiogram - continue antibiotics as above, blood cultures, sputum cultures and urine cultures have been obtained and pending (4) Diastolic heart failure: Code(s): I50.30 - Unspecified diastolic (congestive) heart failure Status: Acute Assessment and Plan: history of diastolic dysfunction, echocardiogram from 09/17/2018 showed normal LV systolic function, EF 60%, grade 2 diastolic dysfunction, moderate to severe enlargement of the left atrium, mild mitral valve regurg, - continue diuresis at this time - repeat echocardiogram is pending (5) Atrial fibrillation: Qualifiers: Atrial fibrillation type: unspecified Qualified Code(s): I48.91 - Unspecified atrial fibrillation Code(s): I48.91 - Unspecified atrial fibrillation Status: Chronic Assessment and Plan: history of atrial fibrillation, currently in sinus bradycardia - continue Eliquis - cardiology following - patient was cardioverted with 200 joules at in a synchronized fashion restoring sinus rhythm on 12/19/[address] Miller, - patient is on sotalol at home, currently bradycardic, will hold (6) Diabetes mellitus: Qualifiers: Diabetes mellitus complication status: without complication Diabetes mellitus manager terminal insulin use: without skilled nursing use Diabetes mellitus type: type 2 Qualified Code(s): E11.9 - Type 2 diabetes mellitus without complications Code(s): E11.9 - Type 2 diabetes mellitus without complications Status: Chronic Assessment and Plan: continue Accu-Cheks and sliding scale insulin (7) Hyperlipidemia: Qualifiers: Hyperlipidemia type: unspecified Qualified Code(s): E78.5 - Hyperlipidemia, unspecified Code(s): E78.5 - Hyperlipidemia, unspecified Status: Chronic Assessment and Plan: continue rosuvastatin (8) Essential hypertension: Code(s): I10 - Essential (primary) hypertension Status: Acute Assessment and Plan: history of essential hypertension, will hold all antihypertensives at this time as patient is in shock and Levophed (9) COPD (chronic obstructive pulmonary disease): Qualifiers: COPD type: unspecified COPD Qualified Code(s): J44.9 - Chronic obstructive pulmonary disease, unspecified Code(s): J44.9 - Chronic obstructive pulmonary disease, unspecified Status: Chronic Assessment and Plan: history of CO
[2019-12-22] MEDS: FUROSEMIDE INJ 40 MG/4 ML VIAL IV PUSH (08:07)
[2019-12-22] MEDS: APIXABAN 5 MG TABLET PO ×2 (08:07→17:31)
[2019-12-22] MEDS: PANTOPRAZOLE SODIUM IV 40 MG VIAL IV PUSH (08:07)
[2019-12-22] MEDS: ROSUVASTATIN 5 MG TABLET PO (08:07)
[2019-12-22] MEDS: CLOPIDOGREL BISULFATE 75 MG TABLET PO (08:07)
--- NOTE | 2019-12-22 09:02 | PM.PNCARD ---
Progress Note: A&P Additional Plan 79-year-old man with picture of flash pulmonary edema. These episodes continue to be puzzling to me. When this happens and of course will always raise the issue of his coronary artery disease. He may and may not be a candidate for a follow-up angiogram again at some point. As I mentioned in my consultation note we have revisited this issue in the past with this gentleman and found no ischemic lesions that explain this. Today he require some additional diuresis and tight barrel inspector indicate that later in the day or possibly tomorrow they will make an attempt at weaning ventilator support Subjective Date/time seen: Date of service: 12/22/19 09:02 Interval history: Follow-up visit an 79-year-old man with coronary artery disease, paroxysmal atrial fibrillation presenting with abrupt pulmonary edema resulting in the need for emergency intubation and mechanical ventilation. As I dictated in my note yesterday the reasons for this are unclear. He has a history of left main coronary artery stenosis which was felt to be the cause of this. This lesion was stented at [facility] approximately 2 years ago and on repeat catheterization last year during a similar episode was found to be patent. Patient has a history of atrial fibrillation was electrically cardioverted on Sunday of last week and is maintaining sinus rhythm/sinus bradycardia. Mitral regurgitation by ANDERSON was [id number]. Exam Const: Other: Patient is still sedated on mechanical ventilator support HENMT: Mouth: Yes moist mucous membranes Eyes: Sclera: sclerae normal Pupils: Equal, round and reactive pupils present Neck: Neck: supple Thyroid: thyroid normal Resp: Other: Breath sounds with scattered rhonchi throughout. Cardio: Rate: regular rate and bradycardic Rhythm: regular rhythm GI: Auscultation: normal bowel sounds Skin: General skin exam: normal color Neuro: Other: Sedated Extrem: General: normal to inspection Objective Data Vital Signs Vital Signs: Vital Signs - 24 hr 12/21/19 10:00 12/21/19 11:00 12/21/19 12:00 Temperature 36.8 C Pulse Rate 48 L 52 L 52 L Respiratory Rate 18 19 Blood Pressure 105/53 L 111/50 L Pulse Oximetry 99 97 98 12/21/19 14:00 12/21/19 14:06 12/21/19 14:07 Temperature Pulse Rate 50 L 50 L 50 L Respiratory Rate 18 18 Blood Pressure 114/50 L Pulse Oximetry 100 99 12/21/19 16:00 12/21/19 17:07 12/21/19 18:00 Temperature 36.9 C 37.2 C Pulse Rate 51 L 52 L 53 L Respiratory Rate 18 18 Blood Pressure 117/53 L 106/50 L Pulse Oximetry 100 99 98 12/21/19 20:00 12/21/19 21:10 12/21/19 21:11 Temperature 37.1 C Pulse Rate 51 L 52 L 52 L Respiratory Rate 18 18 Blood Pressure 103/47 L Pulse Oximetry 98 100 12/21/19 21:20 12/21/19 22:00 12/21/19 23:34 Temperature Pulse Rate 54 L 52 L 51 L Respiratory Rate 18 18 Blood Pressure 103/43 L Pulse Oximetry 100 99 12/22/19 00:00 12/22/19 00:10 12/22/19 02:00 Temperature 36.7 C Pulse Rate 50 L 52 L Respiratory Rate 18 21 H Blood Pressure 101/42 L 107/44 L Pulse Oximetry 98 100 100 12/22/19 02:25 12/22/19 02:32 12/22/19 02:35 Temperature Pulse Rate 54 L 54 L 55 L Respiratory Rate 20 20 Blood Pressure Pulse Oximetry 99 12/22/19 03:00 12/22/19 04:00 12/22/19 06:00 Temperature 36.8 C Pulse Rate 49 L 46 L Respiratory Rate 18 18 Blood Pressure 101/44 L 99/44 L Pulse Oximetry 100 100 100 12/22/19 08:00 Temperature 36.6 C Pulse Rate 47 L Respiratory Rate 18 Blood Pressure 105/46 L Pulse Oximetry 98 Intake/Output Intake/Output: Intake & Output 12/19/19 12/20/19 12/21/19 12/22/19 23:59 23:59 23:59 23:59 Intake Total 374 400 Output Total 3875 650 Balance -3501 -250 Meds/Results Medications: Active Medications Generic Name Dose Route Start Last Admin Trade Name Freq PRN Reason Stop Dose Admin Albuterol 5 mg 12/21/19 14:00
[2019-12-22 12:06] LABS: Glucose Point of Care 137 (65-105)
[2019-12-22 13:14] LABS: Alveolar/Arterial O2 Gradient 156.7 mmHg; Base Excess ABG 3.7 mEq/l (+/-2.0); Carboxyhemoglobin 0.9 % THb (0-2.0); Fractional Inspired Oxygen 40 %; HCO3 ABG 29.8 mEq/l (22.0-26.0); Methemoglobin ABG 0.3 %THb (0-1.5); Oxygen Content ABG 14.6 %vol (16.0-22.0); Oxygen Saturation ABG 93.1 % (95.0-100.0); Oxyhemoglobin 90.7 % THb (90.0-100.0); PCO2 ABG 52.2 mmHg (35.0-45.0); PO2 ABG 68.5 mmHg (80.0-100.0); PO2 FiO2 Ratio Arterial Blood 1.71 %; Reduced Hemoglobin 8.1 %THb (0-5.0); Total Hemoglobin 11.4 g/dL (12.0-18.0); pH ABG 7.375 (7.350-7.450)
[2019-12-22 13:16] LABS: Arterial Blood Gas PEEP 5 cmH2O; Arterial Blood Gas Pressure Support 5 cmH2O; Arterial Blood Gas Vent Mode SPONTANEOUS; Device VENTILATOR; Modified Allen's Test Pass; Site Drawn RIGHT RADIAL
[2019-12-22 16:10] LABS: SARS-CoV-2 RNA PCR Negative
[2019-12-22] MEDS: NOREPINEPHRINE 8 MG/D5W 250 ML 8 MG/250 ML BAG 7.5 MG IV CONT (17:32)
--- NOTE | 2019-12-22 17:58 | PM.IMPN ---
Progress Note: A&P Assessment and Plan (1) Acute respiratory failure with hypoxia and hypercapnia: Code(s): J96.01 - Acute respiratory failure with hypoxia; J96.02 - Acute respiratory failure with hypercapnia Status: Acute Assessment and Plan: . Continue ventilatory support w/ mechanical ventilation. . Continue treatment for CHF which is felt to be the etiology of the respiratory failure but empirically treated with antibiotics and COVID swab is negative. . (2) Acute heart failure with preserved ejection fraction (HFpEF): Code(s): I50.31 - Acute diastolic (congestive) heart failure Status: Acute Assessment and Plan: Continue IV lasix. Preserved ventricular function by previous echoes and repeat now at 55%. 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 (4) Atrial fibrillation: Qualifiers: Atrial fibrillation type: unspecified Qualified Code(s): I48.91 - Unspecified atrial fibrillation Code(s): I48.91 - Unspecified atrial fibrillation Status: Chronic Assessment and Plan: . Continue Elquis therapy., sotalol held initially with bradycardia. Status post kezia cardioversion 12/19/19 (5) H/O: HTN (hypertension): Code(s): Z86.79 - Personal history of other diseases of the circulatory system Status: Chronic Assessment and Plan: Hold home antihypertensives with hypotension (6) COPD (chronic obstructive pulmonary disease): Qualifiers: COPD type: unspecified COPD Qualified Code(s): J44.9 - Chronic obstructive pulmonary disease, unspecified Code(s): J44.9 - Chronic obstructive pulmonary disease, unspecified Status: Chronic Assessment and Plan: . We will continue scheduled bronchodilators. (7) Hyperlipidemia: Qualifiers: Hyperlipidemia type: unspecified Qualified Code(s): E78.5 - Hyperlipidemia, unspecified Code(s): E78.5 - Hyperlipidemia, unspecified Status: Chronic Assessment and Plan: . Resume Crestor PO. (8) Acute kidney injury: Code(s): N17.9 - Acute kidney failure, unspecified Status: Acute Assessment and Plan: Monitor closely creatinine typically 1 to 1.3 down to 1.5 today from peak of 1.9 (9) DVT prophylaxis: Code(s): Z29.9 - Encounter for prophylactic measures, unspecified Status: Acute Assessment and Plan: On Eliquis Subjective Date/time seen: 12/22/19 17:58 Interval history: Date of visit 12/21. 79-year-old hypertensive type 2 diabetic with paroxysmal AFib status post cardioversion after KEZIA 12/19/2019 presented with acute onset shortness of breath found to be in pulmonary edema, hypoxic and was intubated and transferred to the ICU. Was hypotensive and pressors were started. Diuresing, cultured and an empiric antibiotics. slowly improving Exam Narrative: Exam Narrative: Blood pressure 101/50 pulse 54 regular sat 100% on FiO2 of 50 % with peep 5 and off pressors Pupils equal reactive Lungs clear with some rhonchi CV regular rate rhythm her no murmurs Abdomen is soft obese nontender bowel sounds present Extremities without edema distal pulses 2+ dorsalis pedis Neuro sedated but opens eyes Integument no skin breakdown rashes Objective Data Vital Signs Vital Signs: Vital Signs - 24 hr 12/21/19 18:00 12/21/19 20:00 12/21/19 21:10 Temperature 37.2 C 37.1 C Pulse Rate 53 L 51 L 52 L Respiratory R
[2019-12-22 18:33] LABS: Glucose Point of Care 139 (65-105)
[2019-12-22 23:46] LABS: Glucose Point of Care 141 (65-105)
[2019-12-23] VITALS (24 sets, daily range): BP systolic 104–131; BP diastolic 41–63; PULSE 41–63; RESP 14–23; TEMP 36.4–37.2; O2SAT 94–100; BMI 32.3
[2019-12-23] MEDS: ALBUTEROL SULFATE NEB 2.5 MG/0.5 ML INH 5 MG INHALATION ×4 (01:58→20:46)
[2019-12-23] MEDS: IPRATROPIUM BR 0.02% INH SOLN 0.5 MG/2.5 ML VIAL INHALATION ×4 (01:58→20:46)
[2019-12-23 04:35] LABS: Hematocrit 28.7 % (42.0-52.0); Hemoglobin 9.4 g/dL (14.0-18.0); Mean Corpuscular HGB Conc 32.8 g/dl (32-36); Mean Corpuscular Hemoglobin 36.9 pg (26-34); Mean Corpuscular Volume 112.5 fl (80-100); Mean Platelet Volume 10.8 fl (7.4-10.4); Platelet Count Result 124 k/mm3 (150-375); Red Blood Count 2.55 M/mm3 (4.6-6.20); Red Cell Distribution Width 13.5 % (11.5-14.5); White Blood Count 5.8 K/mm3 (4.5-10.0)
[2019-12-23 04:47] LABS: Blood Urea Nitrogen 33 mg/dL (9-20); Calcium 8.8 mg/dL (8.4-10.2); Carbon Dioxide 34 mmol/L (22-30); Chloride 99 mmol/L (98-107); Estimated CRCL calculation 55 ml/min; Estimated Glomerular Filt Rate 58; Glucose 133 mg/dL (75-110); Magnesium 2.3 mg/dL (1.6-2.3); Phosphorus 2.7 mg/dL (2.5-4.5); Sodium 137 mmol/L (137-145)
[2019-12-23 04:50] LABS: Alveolar/Arterial O2 Gradient 234.8 mmHg; Base Excess ABG 3.7 mEq/l (+/-2.0); Carboxyhemoglobin 0.7 % THb (0-2.0); Fractional Inspired Oxygen 50 %; HCO3 ABG 27.8 mEq/l (22.0-26.0); Methemoglobin ABG 0.1 %THb (0-1.5); Oxygen Content ABG 16.6 %vol (16.0-22.0); Oxygen Saturation ABG 95.9 % (95.0-100.0); Oxyhemoglobin 93.3 % THb (90.0-100.0); PCO2 ABG 40.3 mmHg (35.0-45.0); PO2 ABG 76.4 mmHg (80.0-100.0); PO2 FiO2 Ratio Arterial Blood 1.53 %; Reduced Hemoglobin 5.9 %THb (0-5.0); Total Hemoglobin 12.6 g/dL (12.0-18.0); pH ABG 7.457 (7.350-7.450)
[2019-12-23 04:54] LABS: Arterial Blood Gas PEEP 5 cmH2O; Arterial Blood Gas Tidal Volume 500 ml; Arterial Blood Gas Vent Mode CMV; Arterial Blood Gas Ventilator rate 18 /MIN; Device VENTILATOR; Modified Allen's Test Pass; Site Drawn RIGHT RADIAL
[2019-12-23] MEDS: FUROSEMIDE INJ 40 MG/4 ML VIAL IV PUSH (07:35)
[2019-12-23] MEDS: PANTOPRAZOLE SODIUM IV 40 MG VIAL IV PUSH (07:35)
[2019-12-23] MEDS: APIXABAN 5 MG TABLET PO ×2 (07:36→16:33)
[2019-12-23] MEDS: ROSUVASTATIN 5 MG TABLET PO (07:36)
[2019-12-23] MEDS: CLOPIDOGREL BISULFATE 75 MG TABLET PO (07:36)
--- NOTE | 2019-12-23 08:10 | WPDINTPN ---
Progress Note: A&P Assessment and Plan (1) Acute respiratory failure with hypoxia and hypercapnia: Code(s): J96.01 - Acute respiratory failure with hypoxia; J96.02 - Acute respiratory failure with hypercapnia Status: Acute Assessment and Plan: patient presented with severe hypoxia and dyspnea requiring emergent intubation in the ER on 12/20/2019 - patient currently on CMV mode of ventilation, decrease PEEP to 5 and FiO2 to 40% - Chest x-ray and ABGs reviewed, chest x-ray appears to be improved but does have bilateral infiltrates still present - patient failed his weaning trial yesterday due to high RSBI - will try again today and if successful will extubate. patient currently on 12/01 pressure support - continue ceftriaxone and doxycycline - cultures are pending and negative as of now - patient on Versed for sedation, maintain RASS of 0 to -2, daily sedation vacation - continue Lasix today (2) Suspected 2019 novel coronavirus infection: Code(s): Z20.828 - Contact with and (suspected) exposure to other viral communicable diseases Status: Acute Assessment and Plan: patient was tested for SARS-CoV-2 PCR and was negative - c patient was on droplet, airborne and contact precautions/isolation which has been discontinued now CRP and LDH are normal (3) Shock: Code(s): R57.9 - Shock, unspecified Status: Acute Assessment and Plan: patient dropped his blood pressures post intubation, could be related to positive pressure ventilation, septic shock, medications - central line was inserted on 12/20/2019: Started on Levophed, maintain mean arterial pressures > 65 mmHg - echocardiogram reviewed - continue antibiotics as above, blood cultures, sputum cultures and urine cultures have been obtained and pending (4) Diastolic heart failure: Code(s): I50.30 - Unspecified diastolic (congestive) heart failure Status: Acute Assessment and Plan: history of diastolic dysfunction, echocardiogram from 09/17/2018 showed normal LV systolic function, EF 60%, grade 2 diastolic dysfunction, moderate to severe enlargement of the left atrium, mild mitral valve regurg, - I suspect patient's MVR is contributing to pulmonary edema more than overall diastolic dysfunction considering patient does not have much of lower extremity edema but does have episodes of flash pulmonary edema - continue diuresis at this time Repeat echocardiogram 12/21 Summary 1. Left ventricular systolic function is normal, estimated at 55-60%. 2. The left ventricular diastolic function is grade II diastolic dysfunction. 3. The base of the inferior and posterior montelongo are akinetic the remainder of the ventricle contracts well. 4. Left atrial chamber dimension is severely enlarged. 5. There is mild to moderate mitral valve regurgitation. (5) Atrial fibrillation: Qualifiers: Atrial fibrillation type: unspecified Qualified Code(s): I48.91 - Unspecified atrial fibrillation Code(s): I48.91 - Unspecified atrial fibrillation Status: Chronic Assessment and Plan: history of atrial fibrillation, currently in sinus bradycardia - continue Eliquis - cardiology following - patient was cardioverted with 200 joules at in a synchronized fashion restoring sinus rhythm on 12/19/[address] Miller, - patient is on sotalol at home, currently bradycardic, will hold (6) Diabetes mellitus: Qualifiers: Diabetes mellitus type: type 2 Diabetes mellitus usp insulin use: without ocean transportation intermediary use Diabetes mellitus complication status: without complication Qualified Code(s): E11.9 - Type 2 diabetes mellitus without complications Code(s): E11.9 - Type 2 diabetes mellitus without complications Status: Chronic Assessment and Plan: continue Accu-Cheks and sliding scale insulin (7) Hyperlipidemia: Qualifiers: Hyperlipidemia type: unspec
[2019-12-23 08:57] LABS: Base Excess ABG 4.2 mEq/l (+/-2.0); HCO3 ABG 29.3 mEq/l (22.0-26.0); Oxygen Saturation ABG 95.6 % (95.0-100.0); PCO2 ABG 46.4 mmHg (35.0-45.0); Total Hemoglobin 10.9 g/dL (12.0-18.0); pH ABG 7.418 (7.350-7.450)
[2019-12-23 08:58] LABS: Alveolar/Arterial O2 Gradient 226.3 mmHg; Carboxyhemoglobin 0.3 % THb (0-2.0); Fractional Inspired Oxygen 50 %; Methemoglobin ABG 0.1 %THb (0-1.5); Oxygen Content ABG 14.4 %vol (16.0-22.0); Oxyhemoglobin 93.6 % THb (90.0-100.0); PO2 FiO2 Ratio Arterial Blood 1.56 %
[2019-12-23 08:59] LABS: Device VENTILATOR; Modified Allen's Test Pass; Site Drawn RIGHT RADIAL
[2019-12-23 09:00] LABS: Arterial Blood Gas PEEP 5 cmH2O; Arterial Blood Gas Pressure Support 5 cmH2O; Arterial Blood Gas Vent Mode SPONTANEOUS
--- NOTE | 2019-12-23 09:07 | PM.IMPN ---
Progress Note: A&P Assessment and Plan (1) Acute respiratory failure with hypoxia and hypercapnia: Code(s): J96.01 - Acute respiratory failure with hypoxia; J96.02 - Acute respiratory failure with hypercapnia Status: Acute Assessment and Plan: Acute respiratory failure 2nd to CHF exacerbation. COVID swab is negative. Currently w/ mechanical ventilation but plans for extubation later this morning. Continue treatment for CHF. Doxycycline and Rocephin started emperically. Continue nebs. (2) Shock: Code(s): R57.9 - Shock, unspecified Status: Acute Assessment and Plan: BP dropped to 71/45 requiring Levophed. BP has been stablized and Levophed able to be stopped this morning and BP since has remained stable. Contineu to monitor closely as his home meds are slowly resumed. (3) Acute heart failure with preserved ejection fraction (HFpEF): Code(s): I50.31 - Acute diastolic (congestive) heart failure Status: Acute Assessment and Plan: BNP 868 on admission (lower than usual for this patient) with CXR showing pulmonary edema. Preserved ventricular function by previous echoes and repeat now at 55%. Last catheterization 1 year ago revealed patent stent to LAD and left main when he presented in similar fashion. Negative fluid balance and CXR showing much improvement. Continue IV Lasix. (4) Acute kidney injury: Code(s): N17.9 - Acute kidney failure, unspecified Status: Acute Assessment and Plan: Cr to 1.9 but improving since and now down to 1.2. Creatinine typically 1 to 1.3 so patient back to baseline. Continue to monitor. Remains on IV Lasix. (5) Diabetes mellitus: Qualifiers: Diabetes mellitus complication status: without complication Diabetes mellitus correction insulin use: without correction use Diabetes mellitus type: type 2 Qualified Code(s): E11.9 - Type 2 diabetes mellitus without complications Code(s): E11.9 - Type 2 diabetes mellitus without complications Status: Chronic Assessment and Plan: A1c 6.2 in February. Glucose reviewed on 12/23/19. GLucose well controlled. Continue Accuchecks with SSI coverage. Hypoglycemic protocol available as needed. (6) Atrial fibrillation: Qualifiers: Atrial fibrillation type: unspecified Qualified Code(s): I48.91 - Unspecified atrial fibrillation Code(s): I48.91 - Unspecified atrial fibrillation Status: Chronic Assessment and Plan: No recurrence of AFib. Status post ANDERSON cardioversion 12/19/19. Sotalol held due to bradycardia. Continue Elquis therapy. Cardiology following and appreciate elder input. (7) H/O: HTN (hypertension): Code(s): Z86.79 - Personal history of other diseases of the circulatory system Status: Chronic Assessment and Plan: BP reviewed on 12/23/19. BP stable. Home antihypertensives on hold due to shock. Levophed stopped this morning. Continue to monitor. (8) COPD (chronic obstructive pulmonary disease): Qualifiers: COPD type: unspecified COPD Qualified Code(s): J44.9 - Chronic obstructive pulmonary disease, unspecified Code(s): J44.9 - Chronic obstructive pulmonary disease, unspecified Status: Chronic Assessment and Plan: Few scattered rhonchi but no wheezing. Continue scheduled bronchodilators. (9) Hyperlipidemia: Qualifiers: Hyperlipidemia type: unspecified Qualified Code(s): E78.5 - Hyperlipidemia, unspecified Code(s): E78.5 - Hyperlipidemia, unspecified Status: Chronic Assessment and Plan: LFTs normal. Continue Crestor. (10) DVT prophylaxis: Code(s): Z29.9 - Encounter for prophylactic measures, unspecified Status: Acute Assessment and Plan: On Eliquis Subjective Date/time seen: 12/23/19 09:07 Interval history: Date of visit 12/22. 79yo male with HTN, DM and paroxysmal AFib
[2019-12-23] MEDS: PREGABALIN 50 MG CAPSULE 100 MG PO ×2 (12:09→16:33)
[2019-12-23 12:11] LABS: Glucose Point of Care 146 (65-105)
--- NOTE | 2019-12-23 16:24 | PM.PNCARD ---
Progress Note: A&P Assessment and Plan (1) Acute respiratory failure with hypoxia and hypercapnia: Code(s): J96.01 - Acute respiratory failure with hypoxia; J96.02 - Acute respiratory failure with hypercapnia Status: Acute Assessment and Plan: He presented with severe hypoxia and shortness of breath requiring emergent intubation in the emergency room on 12/20/2019. Extubated today. Management per director quality systems. (2) Acute heart failure with preserved ejection fraction (HFpEF): Code(s): I50.31 - Acute diastolic (congestive) heart failure Status: Acute Assessment and Plan: Echocardiogram 12/22/2019: Left ventricular systolic function is normal estimated 55-60%. LV diastolic function is grade 2. Base of the inferior and posterior montelongo are akinetic with the remainder of the ventricle michael well. Left atrial chamber dimension is severely enlarged. Mild to moderate mitral regurgitation. Compared to echocardiogram of February 2019 there are no substantial changes. Transesophageal echocardiogram done on 12/19/2019 prior to cardioversion the mitral regurgitation was mild to moderate. No left atrial appendage thrombus. When this happens of course issues of his coronary artery disease is always raised. He denied any symptoms of ischemia. Only 1 troponin was sampled and it was negative. Decision regarding repeat angiogram will be left up to Dr. Miller. He was just cardioverted on 12/19/2019 so holding his anticoagulation would be risky. He does share that he had sodium indiscretion on Monday 12/18 with two high sodium meals. He reports that he gained 2 lb between Sunday and Sunday. He believes that he also had sodium indiscretion the last time he went into flash pulmonary edema. While this may be a component I do not know that it completely explains the episode. Will obtain a renal artery ultrasound rule out renal artery stenosis. Entresto is on hold due to blood pressure. (3) Atrial fibrillation: Qualifiers: Atrial fibrillation type: unspecified Qualified Code(s): I48.91 - Unspecified atrial fibrillation Code(s): I48.91 - Unspecified atrial fibrillation Status: Chronic Assessment and Plan: Cardioverted 12/19/2019. Sotalol is on hold at this point for bradycardia. He has had recurrence of atrial fibrillation when his sotalol has been decreased or held. Monitor for return of atrial fibrillation which he does not tolerate well. Continue Eliquis 5 mg b.i.d.. (4) Acute kidney injury: Code(s): N17.9 - Acute kidney failure, unspecified Status: Acute Assessment and Plan: Creatinine improving. Returning to baseline. Monitor closely with diuretics. (5) Shock: Code(s): R57.9 - Shock, unspecified Status: Acute Assessment and Plan: Off Levophed since this morning. Blood pressure has been fairly stable. One episode of hypotension with symptoms of dizziness when he was up to the chair post extubation. Returned to bed. Additional Plan Plan discussed with Dr. Shagufta Milton 12/23/2019. Subjective Date/time seen: 12/23/19 16:24 Interval history: Follow-up for: History of coronary artery disease, paroxysmal atrial fibrillation presenting with abrupt pulmonary edema resulting in the need for emergency intubation and mechanical ventilation. As I dictated in my note yesterday the reasons for this are unclear. He has a history of left main coronary artery stenosis which was felt to be the cause of this. This lesion was stented at [facility] approximately 2 years ago and on repeat catheterization last year during a similar episode was found to be patent. Patient has a history of atrial fibrillation was electrically cardioverted on Sunday of last week and is maintaining sinus rhythm/sinus bradycardia. Mitral regu
[2019-12-23 18:22] LABS: Glucose Point of Care 175 (65-105)
[2019-12-24] VITALS (20 sets, daily range): BP systolic 101–123; BP diastolic 39–62; PULSE 46–60; RESP 14–20; TEMP 36.3–36.8; O2SAT 90–100
[2019-12-24 00:16] LABS: Glucose Point of Care 132 (65-105)
[2019-12-24] MEDS: ALBUTEROL SULFATE NEB 2.5 MG/0.5 ML INH 5 MG INHALATION ×4 (01:36→19:38)
[2019-12-24] MEDS: IPRATROPIUM BR 0.02% INH SOLN 0.5 MG/2.5 ML VIAL INHALATION ×4 (01:36→19:37)
[2019-12-24 05:46] LABS: Hematocrit 27.4 % (42.0-52.0); Mean Corpuscular HGB Conc 32.8 g/dl (32-36); Mean Corpuscular Hemoglobin 36.4 pg (26-34); Mean Corpuscular Volume 110.9 fl (80-100); Mean Platelet Volume 10.6 fl (7.4-10.4); Platelet Count Result 124 k/mm3 (150-375); Red Blood Count 2.47 M/mm3 (4.6-6.20); Red Cell Distribution Width 13.1 % (11.5-14.5); White Blood Count 4.9 K/mm3 (4.5-10.0)
[2019-12-24 05:52] LABS: Blood Urea Nitrogen 31 mg/dL (9-20); Calcium 8.5 mg/dL (8.4-10.2); Carbon Dioxide 35 mmol/L (22-30); Chloride 98 mmol/L (98-107); Estimated CRCL calculation 55 ml/min; Estimated Glomerular Filt Rate 58; Glucose 99 mg/dL (75-110); Magnesium 2.3 mg/dL (1.6-2.3); Phosphorus 3.1 mg/dL (2.5-4.5); Potassium 3.9 mmol/L (3.4-5.0); Sodium 137 mmol/L (137-145)
--- NOTE | 2019-12-24 07:35 | WPDINTPN ---
Progress Note: A&P Assessment and Plan (1) Acute respiratory failure with hypoxia and hypercapnia: Code(s): J96.01 - Acute respiratory failure with hypoxia; J96.02 - Acute respiratory failure with hypercapnia Status: Acute Assessment and Plan: patient presented with severe hypoxia and dyspnea requiring emergent intubation in the ER on 12/20/2019 - 12/21-failed SBT 12/22 -extubated after successful weaning trial. Now saturating well on nasal cannula - Chest x-ray reviewed, chest x-ray appears to be improved but does have bilateral infiltrates still present - continue ceftriaxone and doxycycline 12/24 - cultures are pending and negative as of now - continue Lasix (2) Suspected 2018 novel coronavirus infection: Code(s): Z20.828 - Contact with and (suspected) exposure to other viral communicable diseases Status: Acute Assessment and Plan: patient was tested for SARS-CoV-2 PCR and was negative - c patient was on droplet, airborne and contact precautions/isolation which has been discontinued now CRP and LDH weree normal (3) Shock: Code(s): R57.9 - Shock, unspecified Status: Acute Assessment and Plan: patient dropped his blood pressures post intubation, could be related to positive pressure ventilation, septic shock, medications - central line was inserted on 12/20/2019: Started on Levophed, maintain mean arterial pressures > 65 mmHg -shock has resolved and patient has been off of Levophed since yesterday morning - echocardiogram reviewed - continue antibiotics as above, blood cultures, sputum cultures and urine cultures have been obtained and negative as of now (4) Diastolic heart failure: Code(s): I50.30 - Unspecified diastolic (congestive) heart failure Status: Acute Assessment and Plan: history of diastolic dysfunction, echocardiogram from 09/17/2018 showed normal LV systolic function, EF 60%, grade 2 diastolic dysfunction, moderate to severe enlargement of the left atrium, mild mitral valve regurg, - I suspect patient's MVR is contributing to pulmonary edema more than overall diastolic dysfunction considering patient does not have much of lower extremity edema but does have episodes of flash pulmonary edema - continue diuresis at this time Repeat echocardiogram 12/21 Summary 1. Left ventricular systolic function is normal, estimated at 55-60%. 2. The left ventricular diastolic function is grade II diastolic dysfunction. 3. The base of the inferior and posterior montelongo are akinetic the remainder of the ventricle contracts well. 4. Left atrial chamber dimension is severely enlarged. 5. There is mild to moderate mitral valve regurgitation. (5) Atrial fibrillation: Qualifiers: Atrial fibrillation type: unspecified Qualified Code(s): I48.91 - Unspecified atrial fibrillation Code(s): I48.91 - Unspecified atrial fibrillation Status: Chronic Assessment and Plan: history of atrial fibrillation, currently in sinus bradycardia - continue Eliquis - cardiology following and managing - patient was cardioverted with 200 joules at in a synchronized fashion restoring sinus rhythm on 12/19/[address] 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
--- NOTE | 2019-12-24 10:24 | PCDIET ---
ICU Rounding Note: Patient extubated on 12/23/19. Diet has advanced to diabetic which is appropriate with sodium restriction. Last recorded weight is 110.4kg which is increased. Bowel Motility: No documented BM. Labs Reviewed: Hgb (9.0), Hct (27.4), BUN (31) Meds Noted: Albuterol, Doxycycline, Rocephin, Lasix, Novolog, Atrovent Additional Notes: No documented skin breakdown. Recommend adding medication to promote BM if medically appropriate. Following daily in ICU rounds. Assessing/reassessing every 3 days.
[2019-12-24] MEDS: FUROSEMIDE INJ 40 MG/4 ML VIAL IV PUSH (10:45)
[2019-12-24] MEDS: CLOPIDOGREL BISULFATE 75 MG TABLET PO (10:55)
[2019-12-24] MEDS: APIXABAN 5 MG TABLET PO ×2 (10:55→18:08)
[2019-12-24] MEDS: ROSUVASTATIN 5 MG TABLET PO (10:55)
[2019-12-24] MEDS: PREGABALIN 50 MG CAPSULE 100 MG PO ×3 (10:57→18:08)
--- NOTE | 2019-12-24 11:38 | PCOTNOTE ---
Attempted to see patient this am, however patient declined stating he was feeling yucky. Nursing reported patient was up to chair prior to starting to not feel well.
[2019-12-24 12:11] LABS: Glucose Point of Care 232 (65-105)
[2019-12-24] MEDS: INSULIN ASPART (*BKC) 100 UNITS/ML SUB-Q (12:32)
--- NOTE | 2019-12-24 14:36 | PM.IMPN ---
Progress Note: A&P Assessment and Plan (1) Acute respiratory failure with hypoxia and hypercapnia: Code(s): J96.01 - Acute respiratory failure with hypoxia; J96.02 - Acute respiratory failure with hypercapnia Status: Acute Assessment and Plan: Acute respiratory failure 2nd to CHF exacerbation. COVID swab is negative. Saturating well currently on 2 L nasal cannula Continue treatment for CHF. Doxycycline and Rocephin started emperically day 4. . Continue nebs. (2) Shock: Code(s): R57.9 - Shock, unspecified Status: Acute Assessment and Plan: BP dropped to 71/45 requiring Levophed. BP has been stablized and Levophed able to be stopped 12/22 and BP since has remained stable. Continue to monitor closely as his home meds are slowly resumed. (3) Acute heart failure with preserved ejection fraction (HFpEF): Code(s): I50.31 - Acute diastolic (congestive) heart failure Status: Acute Assessment and Plan: BNP 868 on admission (lower than usual for this patient) with CXR showing pulmonary edema. Preserved ventricular function by previous echoes and repeat now at 55%. Last catheterization 1 year ago revealed patent stent to LAD and left main when he presented in similar fashion. Negative fluid balance and CXR showing much improvement. Continue IV Lasix. Off beta-bubba and Entresto with acute kidney injury and hypotension (4) Acute kidney injury: Code(s): N17.9 - Acute kidney failure, unspecified Status: Acute Assessment and Plan: Cr to 1.9 but improving since and now down to 1.2 again today. Creatinine typically 1 to 1.3 so patient back to baseline. Continue to monitor. Remains on IV Lasix. (5) Diabetes mellitus: Qualifiers: Diabetes mellitus type: type 2 Diabetes mellitus terminal press operator insulin use: without terminal press operator use Diabetes mellitus complication status: without complication Qualified Code(s): E11.9 - Type 2 diabetes mellitus without complications Code(s): E11.9 - Type 2 diabetes mellitus without complications Status: Chronic Assessment and Plan: A1c 6.2 in February. Glucose reviewed on 12/24/19. GLucose well controlled. Continue Accuchecks with SSI coverage. Hypoglycemic protocol available as needed. (6) Atrial fibrillation: Qualifiers: Atrial fibrillation type: unspecified Qualified Code(s): I48.91 - Unspecified atrial fibrillation Code(s): I48.91 - Unspecified atrial fibrillation Status: Chronic Assessment and Plan: No recurrence of AFib. Status post ANDERSON cardioversion 12/19/19. Sotalol held due to bradycardia. Continue Elquis therapy. Cardiology following and appreciate elder input. (7) H/O: HTN (hypertension): Code(s): Z86.79 - Personal history of other diseases of the circulatory system Status: Chronic Assessment and Plan: BP reviewed on 12/24/19. BP stable. Home antihypertensives on hold due to shock. Levophed stopped 12/22. Continue to monitor. (8) COPD (chronic obstructive pulmonary disease): Qualifiers: COPD type: unspecified COPD Qualified Code(s): J44.9 - Chronic obstructive pulmonary disease, unspecified Code(s): J44.9 - Chronic obstructive pulmonary disease, unspecified Status: Chronic Assessment and Plan: Few scattered rhonchi but no wheezing. Continue scheduled bronchodilators. (9) Hyperlipidemia: Qualifiers: Hyperlipidemia type: unspecified Qualified Code(s): E78.5 - Hyperlipidemia, unspecified Code(s): E78.5 - Hyperlipidemia, unspecified Status: Chronic Assessment and Plan: LFTs normal. Continue Crestor. (10) DVT prophylaxis: Code(s): Z29.9 - Encounter for prophylactic measures, unspecified Status: Acute Assessment and Plan: On Eliquis Subjective Date/time seen: 12/24/19 14:36 Interval history: Date of visit 12/23.
--- NOTE | 2019-12-24 15:45 | PM.PNCARD ---
Progress Note: A&P Assessment and Plan (1) Acute respiratory failure with hypoxia and hypercapnia: Code(s): J96.01 - Acute respiratory failure with hypoxia; J96.02 - Acute respiratory failure with hypercapnia Status: Acute Assessment and Plan: He presented with severe hypoxia and shortness of breath requiring emergent intubation in the emergency room on 12/20/2019. Doing well post extubation. Continue current medical therapy. (2) Acute heart failure with preserved ejection fraction (HFpEF): Code(s): I50.31 - Acute diastolic (congestive) heart failure Status: Acute Assessment and Plan: Echocardiogram 12/22/2019: Left ventricular systolic function is normal estimated 55-60%. LV diastolic function is grade 2. Base of the inferior and posterior montelongo are akinetic with the remainder of the ventricle michael well. Left atrial chamber dimension is severely enlarged. Mild to moderate mitral regurgitation. Compared to echocardiogram of February 2019 there are no substantial changes. Transesophageal echocardiogram done on 12/19/2019 prior to cardioversion the mitral regurgitation was mild to moderate. No left atrial appendage thrombus. No plans for repeat invasive angiography at this time. Maintaining sinus bradycardia status post recent cardioversion and as such do not wish to hold anticoagulation such proximity. Patient is without anginal symptoms at this time. Entresto is on hold due to blood pressure. EF 55-60%. (3) Atrial fibrillation: Qualifiers: Atrial fibrillation type: unspecified Qualified Code(s): I48.91 - Unspecified atrial fibrillation Code(s): I48.91 - Unspecified atrial fibrillation Status: Chronic Assessment and Plan: Cardioverted 12/19/2019. Sotalol is on hold at this point for bradycardia. He has had recurrence of atrial fibrillation when his sotalol has been decreased or held. Monitor for return of atrial fibrillation which he does not tolerate well. Continue Eliquis 5 mg b.i.d.. (4) Acute kidney injury: Code(s): N17.9 - Acute kidney failure, unspecified Status: Acute Assessment and Plan: Creatinine improving 1.2 today. Returning to baseline. Monitor closely with diuretics. (5) Shock: Code(s): R57.9 - Shock, unspecified Status: Acute Assessment and Plan: Resolved. Additional Plan Plan discussed with Dr. Eagle 1640 12/23/2019. Subjective Date/time seen: Date of service: 12/24/19 15:45 Interval history: Follow-up for: History of coronary artery disease, paroxysmal atrial fibrillation presenting with abrupt pulmonary edema resulting in the need for emergency intubation and mechanical ventilation. As I dictated in my note yesterday the reasons for this are unclear. He has a history of left main coronary artery stenosis which was felt to be the cause of this. This lesion was stented at [facility] approximately 2 years ago and on repeat catheterization last year during a similar episode was found to be patent. Patient has a history of atrial fibrillation was electrically cardioverted on Sunday of last week and is maintaining sinus rhythm/sinus bradycardia. Mitral regurgitation by ANDERSON was [id number]. Today patient feels quite well and has no specific complaints. No new issues overnight. Maintaining sinus bradycardia, BP stable. No chest pain, shortness of breath. Patient again states he over indulged in a salt heavy diet prior to this decompensated state and has that he had an this the last time he presented with acute flash pulmonary edema. Review of Systems Review of Systems: All systems reviewed & are unremarkable except as noted in HPI and below ROS unobtainable: Yes unobtainable due to endotracheal tube Constitutional: Constitutional: Reports as per HPI and Reports no additional constitutio
[2019-12-24 16:40] LABS: Glucose Point of Care 146 (65-105)
--- NOTE | 2019-12-24 17:15 | PC.NURSE ---
This patient, Freddy Mireles Jr., was transferred to [ [id number]] on 12/24/19 at 1715. Personal belongings sent with patient. Belongings list checked and signed with receiving [ ]. Report given to [ CAITIE Lee]. Appropriate documentation sent with patient.
--- NOTE | 2019-12-24 17:22 | PC.NURSE ---
This patient, Freddy Mireles Rupesh, was received from ICU on 12/24/19 at 1710. Personal belongings list checked and signed. Patient/family oriented to unit policies and routines
[2019-12-24 17:58] LABS: Glucose Point of Care 153 (65-105)
[2019-12-24] MEDS: TAMSULOSIN HCL 0.4 MG CAPSULE PO (20:30)
[2019-12-24 21:04] LABS: Glucose Point of Care 157 (65-105)
[2019-12-25] VITALS (21 sets, daily range): BP systolic 108–125; BP diastolic 43–56; PULSE 45–60; RESP 16–20; TEMP 36.3–36.8; O2SAT 90–98
[2019-12-25] MEDS: ALBUTEROL SULFATE NEB 2.5 MG/0.5 ML INH 5 MG INHALATION ×4 (01:32→20:31)
[2019-12-25] MEDS: IPRATROPIUM BR 0.02% INH SOLN 0.5 MG/2.5 ML VIAL INHALATION ×4 (01:33→20:31)
[2019-12-25 06:16] LABS: Hemoglobin 9.2 g/dL (14.0-18.0); Mean Corpuscular HGB Conc 34.1 g/dl (32-36); Mean Corpuscular Hemoglobin 37.4 pg (26-34); Mean Corpuscular Volume 109.8 fl (80-100); Mean Platelet Volume 10.3 fl (7.4-10.4); Platelet Count Result 125 k/mm3 (150-375); Red Blood Count 2.46 M/mm3 (4.6-6.20); Red Cell Distribution Width 13.2 % (11.5-14.5); White Blood Count 3.8 K/mm3 (4.5-10.0)
[2019-12-25 06:29] LABS: Blood Urea Nitrogen 34 mg/dL (9-20); Calcium 8.8 mg/dL (8.4-10.2); Carbon Dioxide 34 mmol/L (22-30); Chloride 100 mmol/L (98-107); Estimated CRCL calculation 60 ml/min; Estimated Glomerular Filt Rate > 60; Glucose 132 mg/dL (75-110); Magnesium 2.3 mg/dL (1.6-2.3); Phosphorus 3.8 mg/dL (2.5-4.5); Potassium 3.9 mmol/L (3.4-5.0); Sodium 137 mmol/L (137-145)
[2019-12-25 08:28] LABS: Glucose Point of Care 125 (65-105)
[2019-12-25] MEDS: APIXABAN 5 MG TABLET PO ×2 (09:31→17:08)
[2019-12-25] MEDS: CLOPIDOGREL BISULFATE 75 MG TABLET PO (09:32)
[2019-12-25] MEDS: ROSUVASTATIN 5 MG TABLET PO (09:32)
[2019-12-25] MEDS: FINASTERIDE 5 MG TABLET PO (09:32)
[2019-12-25] MEDS: PREGABALIN 50 MG CAPSULE 100 MG PO ×3 (09:32→17:08)
[2019-12-25] MEDS: FUROSEMIDE INJ 40 MG/4 ML VIAL IV PUSH (09:33)
[2019-12-25 12:16] LABS: Glucose Point of Care 219 (65-105)
[2019-12-25] MEDS: INSULIN ASPART (*BKC) 100 UNITS/ML SUB-Q (12:45)
--- NOTE | 2019-12-25 14:36 | PM.IMPN ---
Progress Note: A&P Assessment and Plan (1) Acute respiratory failure with hypoxia and hypercapnia: Code(s): J96.01 - Acute respiratory failure with hypoxia; J96.02 - Acute respiratory failure with hypercapnia Status: Acute Assessment and Plan: Acute respiratory failure 2nd to CHF exacerbation. COVID swab is negative. Saturating well currently on 2 L nasal cannula Continue treatment for CHF. Doxycycline and Rocephin started emperically day 5 today and will d/c. . Continue nebs. (2) Shock: Code(s): R57.9 - Shock, unspecified Status: Acute Assessment and Plan: BP dropped to 71/45 requiring Levophed. BP has been stablized and Levophed able to be stopped 12/22 and BP since has remained stable. Continue to monitor closely as his home meds are slowly resumed. (3) Acute heart failure with preserved ejection fraction (HFpEF): Code(s): I50.31 - Acute diastolic (congestive) heart failure Status: Acute Assessment and Plan: BNP 868 on admission (lower than usual for this patient) with CXR showing pulmonary edema. Preserved ventricular function by previous echoes and repeat now at 55%. Last catheterization 1 year ago revealed patent stent to LAD and left main when he presented in similar fashion. Negative fluid balance and CXR showing much improvement. Continue IV Lasix. Off beta-bubba and Entresto with acute kidney injury and hypotension (4) Acute kidney injury: Code(s): N17.9 - Acute kidney failure, unspecified Status: Acute Assessment and Plan: Cr to 1.9 but improving since and now down to 1.1 today. Creatinine typically 1 to 1.3 so patient back to baseline. Continue to monitor. Remains on IV Lasix. (5) Diabetes mellitus: Qualifiers: Diabetes mellitus type: type 2 Diabetes mellitus terminal computer operator insulin use: without assisted use Diabetes mellitus complication status: without complication Qualified Code(s): E11.9 - Type 2 diabetes mellitus without complications Code(s): E11.9 - Type 2 diabetes mellitus without complications Status: Chronic Assessment and Plan: A1c 6.2 in February. Glucose reviewed on 12/25/19. FBS 132 GLucose well controlled. Continue Accuchecks with SSI coverage. Hypoglycemic protocol available as needed. (6) Atrial fibrillation: Qualifiers: Atrial fibrillation type: unspecified Qualified Code(s): I48.91 - Unspecified atrial fibrillation Code(s): I48.91 - Unspecified atrial fibrillation Status: Chronic Assessment and Plan: No recurrence of AFib. Status post ANDERSON cardioversion 12/19/19. Sotalol held due to bradycardia. Continue Elquis therapy. Cardiology following and appreciate elder input. (7) H/O: HTN (hypertension): Code(s): Z86.79 - Personal history of other diseases of the circulatory system Status: Chronic Assessment and Plan: BP reviewed on 12/25/19. BP stable. Home antihypertensives on hold due to shock. Levophed stopped 12/22. Continue to monitor. (8) COPD (chronic obstructive pulmonary disease): Qualifiers: COPD type: unspecified COPD Qualified Code(s): J44.9 - Chronic obstructive pulmonary disease, unspecified Code(s): J44.9 - Chronic obstructive pulmonary disease, unspecified Status: Chronic Assessment and Plan: Few scattered rhonchi but no wheezing. Continue scheduled bronchodilators. wean 02 (9) Hyperlipidemia: Qualifiers: Hyperlipidemia type: unspecified Qualified Code(s): E78.5 - Hyperlipidemia, unspecified Code(s): E78.5 - Hyperlipidemia, unspecified Status: Chronic Assessment and Plan: LFTs normal. Continue Crestor. (10) DVT prophylaxis: Code(s): Z29.9 - Encounter for prophylactic measures, unspecified Status: Acute Assessment and Plan: On Eliquis Subjective Date/time seen: 12/25/19 14:36 Interv
--- NOTE | 2019-12-25 15:14 | PM.PNCARD ---
Progress Note: A&P Assessment and Plan (1) Acute respiratory failure with hypoxia and hypercapnia: Code(s): J96.01 - Acute respiratory failure with hypoxia; J96.02 - Acute respiratory failure with hypercapnia Status: Acute Assessment and Plan: Resolved, doing quite well. Change Lasix to 40 mg p.o. BID starting tomorrow (2) Acute heart failure with preserved ejection fraction (HFpEF): Code(s): I50.31 - Acute diastolic (congestive) heart failure Status: Acute Assessment and Plan: Echocardiogram 12/22/2019: Left ventricular systolic function is normal estimated 55-60%. LV diastolic function is grade 2. Base of the inferior and posterior montelongo are akinetic with the remainder of the ventricle michael well. Left atrial chamber dimension is severely enlarged. Mild to moderate mitral regurgitation. Compared to echocardiogram of February 2019 there are no substantial changes. Transesophageal echocardiogram done on 12/19/2019 prior to cardioversion the mitral regurgitation was mild to moderate. No left atrial appendage thrombus. No plans for repeat invasive angiography at this time. Maintaining sinus bradycardia status post recent cardioversion and as such do not wish to hold anticoagulation such proximity. Patient is without anginal symptoms at this time. Entresto has been on hold due to hypotension and acute renal failure. EF 55-60%. Although these issues have essentially resolved, however, questionable benefit to resume at this time particular given the circumstances. Will reassess likely as an outpatient. (3) Atrial fibrillation: Qualifiers: Atrial fibrillation type: unspecified Qualified Code(s): I48.91 - Unspecified atrial fibrillation Code(s): I48.91 - Unspecified atrial fibrillation Status: Chronic Assessment and Plan: Cardioverted 12/19/2019. Sotalol is on hold at this point for bradycardia. He has had recurrence of atrial fibrillation when his sotalol has been decreased or held. Monitor for return of atrial fibrillation which he does not tolerate well. Continue Eliquis 5 mg b.i.d.. Given recurrence of atrial flutter with rapid ventricular response this morning, despite his bradycardia will need to resume sotalol. Will start with 40 mg twice daily anticipated up titration to 80 mg as tolerated. (4) Acute kidney injury: Code(s): N17.9 - Acute kidney failure, unspecified Status: Acute Assessment and Plan: Creatinine improving 1.1 today, at baseline. Monitor closely with diuretics. (5) Shock: Code(s): R57.9 - Shock, unspecified Status: Acute Assessment and Plan: Resolved. Subjective Date/time seen: Date of service: 12/25/19 15:14 Interval history: Follow-up for: History of coronary artery disease, paroxysmal atrial fibrillation presenting with abrupt pulmonary edema resulting in the need for emergency intubation and mechanical ventilation. Patient has a history of atrial fibrillation was electrically cardioverted on Sunday of last week and is maintaining sinus rhythm/sinus bradycardia. Mitral regurgitation by ANDERSON was [id number]. Today, he feels well and has no specific complaints. Around 7:00 a.m. this morning patient developed atrial flutter approximately 140 beats per minute which persisted for approximately 2 minutes and then converted to sinus bradycardia spontaneously. Patient unaware, denies palpitations, chest pain, shortness of breath or dizziness. Otherwise, patient has been in sinus bradycardia averaging in the low 50s occasionally dropping into the upper 40s. BP stable. Working with physical therapy, eating well. Review of Systems Review of Systems: All systems reviewed & are unremarkable except as noted in HPI and below ROS unobtainable: Yes unobtainable due to endotracheal tube Constitutional: Constituti
[2019-12-25 16:50] LABS: Glucose Point of Care 156 (65-105)
[2019-12-25] MEDS: TAMSULOSIN HCL 0.4 MG CAPSULE PO (20:49)
[2019-12-25] MEDS: SOTALOL HCL 40 MG TABLET PO (20:50)
[2019-12-25 22:39] LABS: Glucose Point of Care 178 (65-105)
[2019-12-26] VITALS (23 sets, daily range): BP systolic 109–126; BP diastolic 41–64; PULSE 45–92; RESP 16–22; TEMP 36.5–36.9; O2SAT 92–100
[2019-12-26] MEDS: ALBUTEROL SULFATE NEB 2.5 MG/0.5 ML INH 5 MG INHALATION ×4 (01:25→19:25)
[2019-12-26] MEDS: IPRATROPIUM BR 0.02% INH SOLN 0.5 MG/2.5 ML VIAL INHALATION ×4 (01:25→19:25)
[2019-12-26 05:57] LABS: Basophils Percent Auto 0.2 % (0.2-1.2); Eosinophils Absolute Auto 0.1 K/mm3 (0-0.3); Eosinophils Percent Auto 1.6 % (0-4.4); Hematocrit 27.3 % (42.0-52.0); Hemoglobin 9.1 g/dL (14.0-18.0); Immature Granulocyte Absolute 0.04 K/mm3 (0.00-0.031); Immature Granulocyte Percent A 0.8 % (0-0.5); Lymphocytes Absolute Auto 1.61 K/mm3 (0.9-3.2); Mean Corpuscular HGB Conc 33.3 g/dl (32-36); Mean Corpuscular Hemoglobin 36.7 pg (26-34); Mean Corpuscular Volume 110.1 fl (80-100); Mean Platelet Volume 10.6 fl (7.4-10.4); Monocytes Absolute Auto 0.5 K/mm3 (0.1-0.6); Monocytes Percent Auto 10.5 % (2.6-8.5); Neutrophils Absolute Auto 2.8 K/mm3 (1.3-6.7); Neutrophils Percent Auto 54.9 % (45.5-73.1); Platelet Count Result 144 k/mm3 (150-375); Red Blood Count 2.48 M/mm3 (4.6-6.20)
[2019-12-26 05:59] LABS: Blood Urea Nitrogen 29 mg/dL (9-20); Calcium 8.7 mg/dL (8.4-10.2); Carbon Dioxide 30 mmol/L (22-30); Chloride 99 mmol/L (98-107); Estimated CRCL calculation 60 ml/min; Estimated Glomerular Filt Rate > 60; Glucose 124 mg/dL (75-110); Potassium 4.1 mmol/L (3.4-5.0); Sodium 134 mmol/L (137-145)
--- NOTE | 2019-12-26 06:00 | ECG_ITS ---
Measurements Intervals Morgan Rate: 51 P: -20 CA: 170 QRS: 2 QRSD: 96 T: 51 QT: 465 QTc: 429 Interpretive Statements SINUS BRADYCARDIA LOW QRS VOLTAGE IN PRECORDIAL LEADS CONSIDER INFERIOR INFARCT, AGE INDETERMINATE ABNORMAL ECG Electronically Signed On 12-26-2019 11:56:42 CDT by Sanya Stewart D.O.
[2019-12-26] MEDS: FINASTERIDE 5 MG TABLET PO (08:06)
[2019-12-26] MEDS: SOTALOL HCL 40 MG TABLET PO ×2 (08:06→20:43)
[2019-12-26] MEDS: PREGABALIN 50 MG CAPSULE 100 MG PO ×3 (08:06→17:19)
[2019-12-26] MEDS: APIXABAN 5 MG TABLET PO ×2 (08:06→17:19)
[2019-12-26] MEDS: FUROSEMIDE 40 MG TABLET PO ×2 (08:06→17:19)
[2019-12-26] MEDS: ROSUVASTATIN 5 MG TABLET PO (08:06)
[2019-12-26] MEDS: CLOPIDOGREL BISULFATE 75 MG TABLET PO (08:06)
[2019-12-26 08:24] LABS: Glucose Point of Care 139 (65-105)
--- NOTE | 2019-12-26 11:12 | PCNFU ---
Nutrition Follow-Up Complete: Inadequate oral intake related to oral intubation as evidenced by NPO status. Patient to meet estimated nutritional needs. Goal: Pt current nutrition is DBCC/4 gm Na. Nutrition recommendation: Agree Last recorded weight is 111.1 kg. Bowel Motility:+BM 12/24 Labs Reviewed:BUN 31,Hct 27.4 Meds Noted:Plavix,Lasix,Crestor Additional Notes: Spoke with patient today. No diet questions or concerns. Patient is eating 90-100% of meals. Patient Instruction is attached. No further nutritional interventions needed. Monitoring: Follow up every 7 days.
--- NOTE | 2019-12-26 11:48 | PM.PNCARD ---
Progress Note: A&P Additional Plan 79-year-old man with ischemic heart disease previous revascularization and history of intermittent atrial fibrillation. He was cardioverted last week back to sinus rhythm and unexpectedly developed abrupt pulmonary edema within 48 hours and was readmitted and placed on ventilator support. He is currently doing much better is diuresed and seems to be quite comfortable. His rib rhythm management is becoming more challenging since his sotalol dosage at previous outpatient was 40 mg q.12 hours and on that dosage she did recur into atrial fib. On 80 mg he is rather bradycardic. For now we will continue him on the 40 mg dosage since he is maintaining sinus rhythm. Since his left ventricular systolic function on echo looks quite good for the time being I am going to hold off on resuming his Entresto. He seems to be improving day by day clinically it would seem to be that discharge over the weekend would be reasonable. Patient indicates he would like to get home as soon as possible as he has a ill [id number] and he wants to help his take care of her at his home. I discussed with the patient that outpatient consultation with electrophysiology might be a good idea since control of his atrial fibrillation has been somewhat more challenging and ablation might be an option to consider. Another option would be simply to except chronic atrial fib when he goes back into its since he was symptomatic in AFib but symptoms were relatively mild Tony Miller MD [facility] Time Spent With Patient Time with patient: 15 - 25 minutes Subjective Date/time seen: Date of service: 12/26/19 11:48 Interval history: Follow-up visit an 79-year-old man with coronary heart disease history of atrial arrhythmias and severe congestive heart failure requiring intubation and mechanical ventilation last week. He is currently on the floor and doing much better. Patient currently denies pain this PAC he is chronically on 2-3 L of oxygen at home and his at this level now. He was able to ambulate a bit in the room this morning and seemed to be doing that without any difficulties denied any lightheadedness upon arising Exam Const: General: comfortable and no acute distress HENMT: Mouth: Yes dry mucous membranes Eyes: Sclera: sclerae normal Pupils: Equal, round and reactive pupils present Neck: Neck: no JVD Thyroid: thyroid normal Lymphatic: lymphadenopathy Resp: Effort & Inspection: normal respiratory effort Other: Few scattered rhonchi are noted otherwise good air movement no audible pulmonary rales Cardio: Rate: regular rate Rhythm: regular rhythm GI: Auscultation: normal bowel sounds Skin: General skin exam: normal color Neuro: Cognition (Neuro): normal cognition Extrem: General: normal to inspection Objective Data Vital Signs Vital Signs: Vital Signs - 24 hr 12/25/19 12:00 12/25/19 14:00 12/25/19 14:03 Temperature 36.7 C Pulse Rate 60 53 L 58 L Respiratory Rate 18 16 Blood Pressure 118/48 L Pulse Oximetry 98 12/25/19 14:10 12/25/19 16:00 12/25/19 18:00 Temperature 36.6 C Pulse Rate 60 52 L 60 Respiratory Rate 20 18 Blood Pressure 125/43 L Pulse Oximetry 97 12/25/19 20:00 12/25/19 20:32 12/25/19 20:42 Temperature Pulse Rate 58 L 57 L 59 L Respiratory Rate 18 18 Blood Pressure Pulse Oximetry 93 12/25/19 20:50 12/25/19 22:00 12/26/19 00:00 Temperature 36.8 C Pulse Rate 56 L 55 L 48 L Respiratory Rate 20 Blood Pressure 115/56 L Pulse Oximetry 92 12/26/19 01:29 12/26/19 01:40 12/26/19 02:01 Temperature 36.6 C Pulse Rate 69 76 62 Respiratory Rate 20 20 22 H Blood Pressure 126/64 Pulse Oximetry 92 12/26/19 04:00 12/26/19 06:00 12/26/19 08:00 Temperature 36.5 C Pulse Rate 48 L 53 L 57 L Respiratory Rate 20 Blood Pressure 114/55 L Pulse Oximetry 95 12/26/19 08:06 12/26/19 08:15 12/26/19 08:26 Temperature Pulse Rate 52 L
[2019-12-26 12:08] LABS: Glucose Point of Care 189 (65-105)
[2019-12-26 17:26] LABS: Glucose Point of Care 130 (65-105)
--- NOTE | 2019-12-26 17:35 | PM.IMPN ---
Progress Note: A&P Assessment and Plan (1) Acute respiratory failure with hypoxia and hypercapnia: Code(s): J96.01 - Acute respiratory failure with hypoxia; J96.02 - Acute respiratory failure with hypercapnia Status: Acute Assessment and Plan: Acute respiratory failure 2nd to CHF exacerbation. COVID swab is negative. Saturating well currently on 2 L nasal cannula Continue treatment for CHF. Doxycycline and Rocephin started emperically day 6 today. CXR showing LLL airspace disease. Will stop in the morning after 7 day course. Continue nebs. (2) Shock: Code(s): R57.9 - Shock, unspecified Status: Acute Assessment and Plan: BP dropped to 71/45 requiring Levophed. BP has been stablized and Levophed able to be stopped 12/22 and BP since has remained stable. Able to tolerate lasix. Continue to monitor. (3) Acute heart failure with preserved ejection fraction (HFpEF): Code(s): I50.31 - Acute diastolic (congestive) heart failure Status: Acute Assessment and Plan: BNP 868 on admission (lower than usual for this patient) with CXR showing pulmonary edema. Preserved ventricular function by previous echoes and repeat now at 55%. Last catheterization 1 year ago revealed patent stent to LAD and left main when he presented in similar fashion. Negative fluid balance and CXR 12/23 showing much improvement but persistent LLL airspace disease. Off Entresto with acute kidney injury and hypotension. Tolerating sotalol and Lasix. (4) Acute kidney injury: Code(s): N17.9 - Acute kidney failure, unspecified Status: Acute Assessment and Plan: Cr to 1.9 but improving since and now down to 1.1 again today. Creatinine typically 1 to 1.3 so patient back to baseline. Continue to monitor. Tolerating Lasix at home dose. (5) Diabetes mellitus: Qualifiers: Diabetes mellitus type: type 2 Diabetes mellitus senior care insulin use: without buttermaker continuous churn use Diabetes mellitus complication status: without complication Qualified Code(s): E11.9 - Type 2 diabetes mellitus without complications Code(s): E11.9 - Type 2 diabetes mellitus without complications Status: Chronic Assessment and Plan: A1c 6.2 in February. Glucose reviewed on 12/26/19. Glucose mostly well controlled. Continue Accuchecks with SSI coverage. Hypoglycemic protocol available as needed. (6) Atrial fibrillation: Qualifiers: Atrial fibrillation type: unspecified Qualified Code(s): I48.91 - Unspecified atrial fibrillation Code(s): I48.91 - Unspecified atrial fibrillation Status: Chronic Assessment and Plan: No recurrence of AFib. Status post ANDERSON cardioversion 12/19/19. Sotalol held due to bradycardia but since been resumed. Continue Elquis therapy. Cardiology following and appreciate their input. (7) H/O: HTN (hypertension): Code(s): Z86.79 - Personal history of other diseases of the circulatory system Status: Chronic Assessment and Plan: BP reviewed on 12/26/19. BP stable. Home antihypertensives were on hold due to shock. Levophed stopped 12/22. Some medications have been able to be resumed. Continue to monitor. (8) COPD (chronic obstructive pulmonary disease): Qualifiers: COPD type: unspecified COPD Qualified Code(s): J44.9 - Chronic obstructive pulmonary disease, unspecified Code(s): J44.9 - Chronic obstructive pulmonary disease, unspecified Status: Chronic Assessment and Plan: Few scattered rhonchi but no wheezing. Continue scheduled bronchodilators. At baseline O2 2-3L that he uses at home. (9) Hyperlipidemia: Qualifiers: Hyperlipidemia type: unspecified Qualified Code(s): E78.5 - Hyperlipidemia, unspecified Code(s): E78.5 - Hyperlipidemia, unspecified Status: Chronic Assessment and Plan: LFTs normal. Continue Crestor. (10) DVT prop
[2019-12-26 20:41] LABS: Glucose Point of Care 157 (65-105)
[2019-12-26] MEDS: TAMSULOSIN HCL 0.4 MG CAPSULE PO (20:43)
[2019-12-26] MEDS: MELATONIN 3 MG TABLET PO (20:43)
[2019-12-27] VITALS (9 sets, daily range): BP systolic 105–123; BP diastolic 48–52; PULSE 42–62; RESP 18–20; TEMP 36.6; O2SAT 98
[2019-12-27] MEDS: IPRATROPIUM BR 0.02% INH SOLN 0.5 MG/2.5 ML VIAL INHALATION ×2 (01:52→07:49)
[2019-12-27] MEDS: ALBUTEROL SULFATE NEB 2.5 MG/0.5 ML INH 5 MG INHALATION ×2 (01:52→07:49)
[2019-12-27 06:49] LABS: Glucose Point of Care 128 (65-105)
[2019-12-27 08:30] LABS: Blood Urea Nitrogen 27 mg/dL (9-20); Calcium 8.7 mg/dL (8.4-10.2); Carbon Dioxide 31 mmol/L (22-30); Chloride 99 mmol/L (98-107); Estimated CRCL calculation 66 ml/min; Estimated Glomerular Filt Rate > 60; Glucose 129 mg/dL (75-110); Potassium 4.2 mmol/L (3.4-5.0); Sodium 134 mmol/L (137-145)
[2019-12-27 09:31] LABS: Folic Acid 16.9 ng/mL (2.76->20); Vitamin B12 > 1000.0 pg/mL (239-931)
[2019-12-27] MEDS: ROSUVASTATIN 5 MG TABLET PO (09:33)
[2019-12-27] MEDS: SOTALOL HCL 40 MG TABLET PO (09:33)
[2019-12-27] MEDS: FINASTERIDE 5 MG TABLET PO (09:34)
[2019-12-27] MEDS: FUROSEMIDE 40 MG TABLET PO (09:34)
[2019-12-27] MEDS: APIXABAN 5 MG TABLET PO (09:35)
[2019-12-27] MEDS: CLOPIDOGREL BISULFATE 75 MG TABLET PO (09:35)
[2019-12-27] MEDS: PREGABALIN 50 MG CAPSULE 100 MG PO (09:45)
--- NOTE | 2019-12-27 11:45 | PM.PNCARD ---
Progress Note: A&P Assessment and Plan (1) Acute respiratory failure with hypoxia and hypercapnia: Code(s): J96.01 - Acute respiratory failure with hypoxia; J96.02 - Acute respiratory failure with hypercapnia Status: Acute Assessment and Plan: Resolved, doing quite well. Change Lasix to 40 mg p.o. BID starting tomorrow (2) Acute heart failure with preserved ejection fraction (HFpEF): Code(s): I50.31 - Acute diastolic (congestive) heart failure Status: Acute Assessment and Plan: Echocardiogram 12/22/2019: Left ventricular systolic function is normal estimated 55-60%. LV diastolic function is grade 2. Base of the inferior and posterior montelongo are akinetic with the remainder of the ventricle michael well. Left atrial chamber dimension is severely enlarged. Mild to moderate mitral regurgitation. Compared to echocardiogram of February 2019 there are no substantial changes. Transesophageal echocardiogram done on 12/19/2019 prior to cardioversion the mitral regurgitation was mild to moderate. No left atrial appendage thrombus. stable for discharge home. Compensated. Continue current medical therapy. Will not restart Entresto. Follow-up as outpatient as scheduled. (3) Atrial fibrillation: Qualifiers: Atrial fibrillation type: unspecified Qualified Code(s): I48.91 - Unspecified atrial fibrillation Code(s): I48.91 - Unspecified atrial fibrillation Status: Chronic Assessment and Plan: Cardioverted 12/19/2019. Sotalol is on hold at this point for bradycardia. He has had recurrence of atrial fibrillation when his sotalol has been decreased or held. Monitor for return of atrial fibrillation which he does not tolerate well. Continue Eliquis 5 mg b.i.d.. remains on clopidogrel. Monitor for bleeding. Aspirin discontinued. QTC acceptable. Tolerating sotalol 40 mg twice daily. Had brief recurrence of atrial flutter. Outpatient referral to electrophysiology for considerations for atrial flutter ablation. Follow-up as outpatient as scheduled. Stable for discharge from cardiac perspective. (4) Acute kidney injury: Code(s): N17.9 - Acute kidney failure, unspecified Status: Acute Assessment and Plan: At baseline, 1.0 today. Monitor closely with diuretics. (5) Shock: Code(s): R57.9 - Shock, unspecified Status: Acute Assessment and Plan: Resolved. Subjective Date/time seen: Date of service: 12/27/19 11:45 Interval history: Follow-up visit an 79-year-old man with coronary heart disease history of atrial arrhythmias and severe congestive heart failure requiring intubation and mechanical ventilation last week. Today, patient feels he is doing very well and has no complaints. No new issues overnight although was noted to have few minutes of atrial flutter heart rate 140 beats per minute, asymptomatic. Reverted to sinus rhythm. Tolerating sotalol 40 mg twice daily, persistent bradycardia otherwise noted on telemetry. No chest pain, shortness of breath, dizziness. No edema. Eating well. States he is ready to go home. Review of Systems Review of Systems: All systems reviewed & are unremarkable except as noted in HPI and below ROS unobtainable: Yes unobtainable due to endotracheal tube Constitutional: Constitutional: Reports as per HPI and Reports no additional constitutional complaints Eyes: Eyes: Reports as per HPI and Reports no additional eye complaints ENT: Reports system reviewed and no additional complaints, except as documented and Reports as per HPI Cardiovascular: Cardiovascular: Reports as per HPI, Reports no additional cardiovascular complaints, Denies chest pain, Denies leg edema, Denies lightheadedness, Denies palpitations, Denies dyspnea and Denies dyspnea on exertion Respiratory: Respiratory: Reports as per HPI, Reports no a
--- NOTE | 2019-12-27 13:02 | PM.DS ---
DS: Admitting Diagnosis Admitting Diagnosis Admitting Diagnosis: Acute respiratory failure with hypoxia DS: Discharge Diagnosis Discharge Diagnosis (1) Acute respiratory failure with hypoxia and hypercapnia: Code(s): J96.01 - Acute respiratory failure with hypoxia; J96.02 - Acute respiratory failure with hypercapnia Status: Acute Assessment and Plan: Acute respiratory failure 2nd to CHF exacerbation. COVID swab is negative. Saturating well currently on 2 L nasal cannula which is his baseline. CXR showing LLL airspace disease. Doxycycline and Rocephin started emperically and completed 7 days. (2) Shock: Code(s): R57.9 - Shock, unspecified Status: Acute Assessment and Plan: BP dropped to 71/45 requiring Levophed. BP has been stabilized and Levophed able to be stopped 12/22. BP since has remained stable. Able to tolerate Lasix. (3) Acute heart failure with preserved ejection fraction (HFpEF): Code(s): I50.31 - Acute diastolic (congestive) heart failure Status: Acute Assessment and Plan: BNP 868 on admission (lower than usual for this patient) with CXR showing pulmonary edema. Preserved ventricular function by previous echoes and repeat now at 55%. Last catheterization 1 year ago revealed patent stent to LAD and left main when he presented in similar fashion. Negative fluid balance and CXR 12/23 showing much improvement but persistent LLL airspace disease. Off Entresto with acute kidney injury and hypotension. Tolerated resumption of sotalol and Lasix. (4) Acute kidney injury: Code(s): N17.9 - Acute kidney failure, unspecified Status: Acute Assessment and Plan: Cr to 1.9 but improved down to 1.0. Creatinine typically 1 to 1.3 so patient back to baseline. He was tolerating Lasix at home dose. (5) Diabetes mellitus: Qualifiers: Diabetes mellitus complication status: without complication Diabetes mellitus superintendent [employer] insulin use: without alf use Diabetes mellitus type: type 2 Qualified Code(s): E11.9 - Type 2 diabetes mellitus without complications Code(s): E11.9 - Type 2 diabetes mellitus without complications Status: Chronic Assessment and Plan: A1c 6.2 in February. Glucose monitored closely. Glucose remained mostly well controlled. We monitored Accuchecks with SSI coverage. Hypoglycemic protocol was available as needed. (6) Atrial fibrillation: Qualifiers: Atrial fibrillation type: unspecified Qualified Code(s): I48.91 - Unspecified atrial fibrillation Code(s): I48.91 - Unspecified atrial fibrillation Status: Chronic Assessment and Plan: No recurrence of AFib. Status post ANDERSON cardioversion 12/19/19. Sotalol held due to bradycardia but able to be resumed. We continued Eliquis therapy. Cardiology followed along. (7) H/O: HTN (hypertension): Code(s): Z86.79 - Personal history of other diseases of the circulatory system Status: Chronic Assessment and Plan: Blood pressure monitored closely and remained stable. Home antihypertensives were on hold due to shock. Levophed stopped 12/22. Some medications have been able to be resumed. (8) COPD (chronic obstructive pulmonary disease): Qualifiers: COPD type: unspecified COPD Qualified Code(s): J44.9 - Chronic obstructive pulmonary disease, unspecified Code(s): J44.9 - Chronic obstructive pulmonary disease, unspecified Status: Chronic Assessment and Plan: Lungs remained clear mostly. We continued scheduled bronchodilators. Patient remained at baseline O2 2-3L that he uses at home. (9) Hyperlipidemia: Qualifiers: Hyperlipidemia type: unspecified Qualified Code(s): E78.5 - Hyperlipidemia, unspecified Code(s): E78.5 - Hyperlipidemia, unspecified Status: Chronic Assessment and Plan: LFTs normal. We continued his Crestor
--- NOTE | 2019-12-27 14:53 | PC.NURSE ---
1435 UNABLE TO FIND PT'S BELRUBYS LIST, CALLED ICU AND THEY BROUGHT PT'S CLASS RING AND HE SIGNED FOR IT.
[2020-01-01 10:32] LABS: Glucose Point of Care 184 (65-105)
== END 2019-12-27 14:35 | disposition home or self-care (01) | DRG 291 ==
LOC: ANHED 23:41 → ANHICU 12-21 01:24 → ANH3MEDSUR 12-24 17:03
PROVIDERS: Internal Medicine; Admitting Provider Family Medicine; Emergency Provider Emergency Medicine; PCP Family Medicine; Visit Provider Internal Medicine
DX: I11.0 Hypertensive heart disease with heart failure (principal); J96.01 Acute respiratory failure with hypoxia; J96.02 Acute respiratory failure with hypercapnia; R57.8 Other shock; N17.9 Acute kidney failure, unspecified; I50.33 Acute on chronic diastolic (congestive) heart failure; Z20.828 Contact with and (suspected) exposure to other viral communicable diseases; E11.9 Type 2 diabetes mellitus without complications; J44.9 Chronic obstructive pulmonary disease, unspecified; I48.0 Paroxysmal atrial fibrillation; E78.5 Hyperlipidemia, unspecified; I25.10 Atherosclerotic heart disease of native coronary artery without angina pectoris; Z87.891 Personal history of nicotine dependence; Z79.01 Long term (current) use of anticoagulants; Z99.81 Dependence on supplemental oxygen
CPT/HCPCS: 31500; 36415; 36600; 71045; 80048; 80053; 82375; 82607; 82746; 82805; 82948; 83050; 83605; 83615; 83735; 83880; 84100; 84484; 85025; 85027; 85380; 85610; 85730; 86140; 87040; 87070; 87077; 87086; 87186; 87205; 87635; 93005; 93306; 93976; 94003; 94640; 96374; 97110; 97116; 97162; 97165; 97530; 97535; 99291; A9270; C1751; C9113; C9803; J0696; J1815; J1940; J2250; J2704; J3010; U0003

== ENCOUNTER 2020-01-01 12:22 | Emergency (ER) | payer MEDICARE, SELFPAY ==
--- NOTE | ~2020-01-01 | XR_ITS ---
XR finger 4th LT min 2V DATE: 01/01/2020 12:53 INDICATION: Jammed finger into furniture during a fall. TECHNIQUE: 4 views of fourth digit COMPARISON: None FINDINGS: No fracture or dislocation, periosteal reaction or bone destruction, radiopaque soft tissue foreign body or subcutaneous emphysema. Joint spaces are relatively preserved. IMPRESSION: No significant abnormality Reviewed, dictated and finalized at location A. IMPRESSION: No significant abnormality
--- NOTE | ~2020-01-01 | XR_ITS ---
EXAMINATION: XR finger 3rd LT min 2V DATE: 01/01/2020 12:53 INDICATION: Left hand third digit injury. TECHNIQUE: 4 views of left hand third digit were obtained. COMPARISON: None. FINDINGS: There is dorsal dislocation of third middle phalanx with respect to the proximal phalanx. N o fracture. 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 IMPRESSION: 1. Dislocation of third proximal interphalangeal joint. Reviewed, dictated and finalized at location A.
--- NOTE | ~2020-01-01 | XR_ITS ---
XR finger 3rd LT min 2V DATE: 01/01/2020 13:33 INDICATION: Postoperative reduction examination; dislocation at proximal interphalangeal joint TECHNIQUE: AP and lateral views COMPARISON: 01/01/2020 prereduction left third digit FINDINGS: There is reduction of the posterior dislocation at the proximal interphalangeal joint. No f racture deformity is evident. IMPRESSION: Reduction of posterior dislocation of proximal interphalangeal joint Reviewed, dictated and finalized at location A. IMPRESSION: Reduction of posterior dislocation of proximal interphalangeal join t
[2020-01-01 12:26] VITALS: BP 109/56; PULSE 43; RESP 16; TEMP 36.2; O2SAT 100
--- NOTE | 2020-01-01 12:38 | ED.UPPEXIN ---
HPI - Extremity Injury (Upper) General Chief Complaint: Extremity Injury, Upper Stated Complaint: left 3rd/4th finger lac Time Seen by Provider: 01/01/20 12:33 History of Present Illness HPI narrative: Patient is an 79-year-old male who presents the ER with injuries to his left third and fourth digits. Patient was walking when he stepped on his foot which caused him to lunge forward and strike his left hand into a piece of furniture. He suffered a small laceration to the distal aspect of the fourth digit nailbed with slight bleeding. He has normal range of motion sensation in that finger. His third digit has deformity at the PIP and has some slight bleeding coming from the proximal aspect of the nailbed on the left hand. The DIP causes the distal phalanx to be in a flexed position consistent with mallet finger. No numbness or tingling. Patient did not strike his head or suffer any additional injury. Related Data Home Medications Medication Instructions Recorded Confirmed finasteride 5 mg tablet 5 mg PO DAILY 09/10/19 12/21/19 rosuvastatin 5 mg tablet 5 mg PO DAILY 09/10/19 12/21/19 fenofibric acid (choline) 135 mg 135 mg PO DAILY 09/11/19 12/21/19 capsule,delayed release furosemide 40 mg tablet 40 mg PO BID 09/11/19 12/21/19 multivitamin 1 cap PO DAILY 09/11/19 12/21/19 omega3-dha 200 mg-epa 300 mg-othr 1 cap PO BID 09/11/19 12/21/19 om3 100 mg-fish oil 1,000 mg capsule solifenacin 10 mg tablet 10 mg PO HS 09/11/19 12/21/19 Eliquis 5 mg PO BID 12/18/19 12/21/19 metformin 2,000 mg PO DAILY 12/18/19 12/21/19 Trelegy Ellipta 1 inh INHALATION DAILY 12/19/19 12/21/19 clopidogrel 75 mg PO DAILY 12/19/19 12/21/19 cyanocobalamin (vitamin B-12) 500 mcg PO DAILY 12/19/19 12/21/19 [Vitamin B-12] coenzyme Q10 [CoQ-10] 200 mg PO DAILY 12/21/19 12/21/19 Allergies Allergy/AdvReac Type Severity Reaction Status Date / Time rivaroxaban [From Xarelto] Allergy Intermediate Hives Verified 01/01/20 12:32 Review of Systems Musculoskeletal: Musculoskeletal: Reports arthralgias and Reports joint swelling Comments: Deformity of the left third digit Neurologic: Denies focal weakness and Denies numbness PMFSH Social History Social History Smoking packs per day: 2 Smoking cigarettes per day: 40.0 Years smoked: 30 Smoking pack-years: 60.00 Smoking status: Former smoker Tobacco type: cigarettes Second hand tobacco smoke exposure: No Smoking end date: 07/30/87 Alcohol intake: current Drinks per week: 1 Substance use: never Gender identity (if verbalized by the patient): Male Spiritual care concerns: No Exam Narrative: Exam Narrative: GENERAL: Well-appearing, well-nourished, and in no acute distress. HEAD: Normocephalic, atraumatic. EXTREMITIES: Focused exam of the left hand shows a deformity to the third digit at the DIP with patient able to extend at that joint, the PIP has a spot on neck deformity with swelling, there is scant blood coming from the cuticle. The fourth digit shows a small half centimeter laceration to the distal aspect of the nail and fingertip not amenable to repair. No subungual hematoma requiring decompression. SKIN: Warm, dry, no rash. NEURO: No focal deficits. Alert and oriented x3. PSYCH: Normal mood and affect. Course Course Emergency Course: Successful reduction. Patient can perform extension flexion at the PIP but can only perform flexion at the DIP. He has been splinted and encouraged to follow-up with hand surgery for further evaluation. Vital Signs Vital signs: Vital Signs Temperature 97.2 F L 01/01/20 12:26 Pulse Rate 43 L 01/01/20 12:26 Respiratory Rate 16 01/01/20 12:26 Blood Pressure 109/56 L 01/01/20 12:26 Pulse Oximetry 100 01/01/20 12:26 Temperature 97.2 F L 01/01/20 12:26 Pulse Rate 43 L 01/01/20 12:26 Respiratory Rate 16 01/01/20 12:26 Blood Pressure 109/56 L 01/01/20 12:26 Pulse O
== END 2020-01-01 14:15 | disposition home or self-care (01) ==
PROVIDERS: Emergency Provider Emergency Medicine; PCP Family Medicine
DX: S63.283A Dislocation of proximal interphalangeal joint of left middle finger, initial encounter (principal); M20.012 Mallet finger of left finger(s); S61.315A Laceration without foreign body of left ring finger with damage to nail, initial encounter; Z79.84 Long term (current) use of oral hypoglycemic drugs; Z79.01 Long term (current) use of anticoagulants; Z87.891 Personal history of nicotine dependence; W01.190A Fall on same level from slipping, tripping and stumbling with subsequent striking against furniture, initial encounter
CPT/HCPCS: 26770; 73140; 99285

== ENCOUNTER 2020-01-02 23:18 | Inpatient (IN) | payer MEDICARE, SELFPAY ==
--- NOTE | ~2020-01-02 | XR_ITS ---
XR chest ET placement DATE: 01/03/2020 01:43 INDICATION: Intubation TECHNIQUE: Portable AP chest on 01/03/2020 at 0141 hours COMPARISON: 01/03/2020 portable AP chest at 0046 hours FINDINGS: ET tube tip is approximately 6.9 cm above emilie. [place] range is 2- 5 cm Again noted are severe bilateral pulmonary infiltrates which are more prominent centrally as well as Kev B-lines, consistent with pulmonary interstitial and alveolar edema, relatively stable. 5 cm. NG tube is noted passing into the stomach. IMPRESSION: ET tube tip 6.9 cm above emilie. [place] range is 2-5 cm Reviewed, dictated and finalized at Location A. Reviewed, dictated and finalized at location A.
--- NOTE | ~2020-01-02 | XR_ITS ---
XR abdomen NG/feed tube insert DATE: 01/03/2020 00:47 INDICATION: NG tube placement TECHNIQUE: Portable AP view on 01/03/2020 at 0048 hours COMPARISON: None FINDINGS: The NG tube extends approximately 8 cm into the proximal stomach, the proximal side port si tuated at approximately the level of the diaphragmatic hiatus. Advancement is recommended. IMPRESSION: Recommend advancement of NG tube; proximal side-port is at the diaphragmatic hiatus Reviewed, dictated and finalized at Location A. Reviewed, dictated and finalized at location A. IMPRESSION: Recommend advancement of NG tube; proximal side-port is at the diap hragmatic hiatus
--- NOTE | ~2020-01-02 | XR_ITS ---
XR chest 1V portable DATE: 01/04/2020 05:22 INDICATION: Acute respiratory failure. Pulmonary edema. TECHNIQUE: Portable AP chest on 01/04/2020 at 0509 hours COMPARISON: 01/03/2020 portable AP chest at 0141 hours FINDINGS: ET tube tip is 6 cm above emilie; ideal range is 2-5 cm. A nasogastric tube is noted passin g into the stomach. There is considerable interval improvement of extensive bilateral pulmonary infiltrates since 0, suggesting improvement of pulmonary edema. There is still pulmonary vascular congestion and redist ribution. Mild residual infiltrates are noted in the central and primarily lower lung zones, left gre ater than right. Aortic arch calcification. Heart size is likely within normal range given pain medication associated with AP projection. IMPRESSION: Considerable improvement in bilateral pulmonary infiltrates since 01/03/2020, suggesting im provement of pulmonary edema; there is residual congestive change And bilateral infiltrate, greatest in the left lower lobe Reviewed, dictated and finalized at location A. IMPRESSION: Considerable improvement in bilateral pulmonary infiltrates since , suggesting improvement of pulmonary edema; there is residual congestiv e change And bilateral infiltrate, greatest in the left lower lobe
--- NOTE | ~2020-01-02 | XR_ITS ---
XR chest ET placement DATE: 01/03/2020 00:47 INDICATION: Intubation TECHNIQUE: Portable AP chest on 01/03/2020 at 0046 hours COMPARISON: 12/24/2019 portable AP chest at 0520 hours FINDINGS: ET tube tip is 7.3 cm above emilie. [place] range is 2-5 cm. A nasogastric tube is noted in the stomach. There are extensive bilateral pulmonary infiltrates, more prominent centrally, suggesting pulmonary e hugo. Kev B-lines are noted as well, consistent with pulmonary interstitial edema. There is a smal l right pleural effusion. Heart size is not optimally evaluated on AP projection because of magnification. There is aortic arch calcification. IMPRESSION: Pulmonary edema ET tube tip 7.3 cm above emilie; ideal range is 2-5 cm NG tube in stomach Reviewed, dictated and finalized at Location A. Reviewed, dictated and finalized at location A.
[2020-01-02 23:17] VITALS: BP 164/77; PULSE 96; RESP 26; TEMP 36.5; O2SAT 95
[2020-01-02 23:30] VITALS: BP 164/77; PULSE 96; RESP 25; O2SAT 99
--- NOTE | 2020-01-02 23:34 | PC.NURSE ---
[facility] EDP 80 mg lasix infused IVP
--- NOTE | 2020-01-02 23:35 | ECG_ITS ---
Measurements Intervals [place] Rate: 96 P: 84 MN: 202 QRS: 32 QRSD: 102 T: 32 QT: 341 QTc: 431 Interpretive Statements SINUS RHYTHM LOW QRS VOLTAGE IN PRECORDIAL LEADS BORDERLINE R WAVE PROGRESSION, ANTERIOR LEADS BORDERLINE ST-T WAVE ABNORMALITY- INFERIOR LEADS BASELINE ARTIFACT- III, AVF, V3-V6 BORDERLINE ECG Electronically Signed On 01-03-2020 7:11:03 CDT by Sanya Stewart D.O.
--- NOTE | 2020-01-02 23:36 | ED.SOB ---
HPI - SOB/Dyspnea General Chief Complaint: Shortness of Breath/Dyspnea Stated Complaint: SOB Time Seen by Provider: 01/02/20 23:28 History of Present Illness HPI Narrative: Patient presents via EMS with his for acute shortness of breath this evening. He was fine after dinner went to bed, and then came to her saying that he could not catch his breath. He has been intubated twice recently, for flash pulmonary edema. Dr. Nuñez is his sports statistician, and he supposed to get a pacemaker in a week. His said that he has not been sick in the last week, and they restrict the salt in her diet, and he takes all of his medication. MD elicited complaint: shortness of breath Pertinent past history: congestive heart failure Related Data Home Medications Medication Instructions Recorded Confirmed finasteride 5 mg tablet 5 mg PO DAILY 09/10/19 01/03/20 rosuvastatin 5 mg tablet 5 mg PO DAILY 09/10/19 01/03/20 fenofibric acid (choline) 135 mg 135 mg PO DAILY 09/11/19 01/03/20 capsule,delayed release furosemide 40 mg tablet 40 mg PO BID 09/11/19 01/03/20 multivitamin 1 cap PO DAILY 09/11/19 01/03/20 omega3-dha 200 mg-epa 300 mg-othr 1 cap PO BID 09/11/19 01/03/20 om3 100 mg-fish oil 1,000 mg capsule solifenacin 10 mg tablet 10 mg PO HS 09/11/19 01/03/20 Eliquis 5 mg PO BID 12/18/19 01/03/20 metformin 2,000 mg PO DAILY 12/18/19 01/03/20 Trelegy Ellipta 1 inh INHALATION DAILY 12/19/19 01/03/20 clopidogrel 75 mg PO DAILY 12/19/19 01/03/20 cyanocobalamin (vitamin B-12) 500 mcg PO DAILY 12/19/19 01/03/20 [Vitamin B-12] coenzyme Q10 [CoQ-10] 200 mg PO DAILY 12/21/19 01/03/20 Allergies Allergy/AdvReac Type Severity Reaction Status Date / Time rivaroxaban [From Xarelto] Allergy Intermediate Hives Verified 01/01/20 12:32 Review of Systems Review of Systems: Narrative: CONSTITUTIONAL: Denies fever, chills, or sweats. EYES: Denies visual changes, redness, or discharge. ENT: Denies rhinorrhea, congestion, sore throat, or otalgia. CARDIOVASCULAR: Denies chest pain, palpitations, or edema. RESPIRATORY: Denies cough, but have dyspnea. GASTROINTESTINAL: Denies abdominal pain, nausea, vomiting, or diarrhea. GENITOURINARY: Denies dysuria or hematuria. SKIN: Denies rash or itching. MUSCULOSKELETAL: Denies back pain, joint pain, or myalgia. NEUROLOGIC: Denies headache, numbness, or weakness. PSYCHIATRIC: Denies anxiety or depression. The review of systems as per the . [facility] Past Medical History Medical History Atrial fibrillation Chronic respiratory failure with hypoxia and hypercapnia Coronary artery disease Diabetes mellitus Diastolic heart failure H/O: HTN (hypertension) Hyperlipidemia Surgical History Surgical History History of angioplasty History of lumbar laminectomy Family History Family History Sibling Diabetes mellitus Mother Family history of Alzheimer's disease, Onset Age: 76 Family history of Parkinson's disease Father Family history of coronary artery disease Hypertension Cerebrovascular accident Chronic obstructive pulmonary disease Congestive heart failure Social History Social History Smoking packs per day: 2 Smoking cigarettes per day: 40.0 Years smoked: 30 Smoking pack-years: 60.00 Smoking status: Former smoker Tobacco type: cigarettes Second hand tobacco smoke exposure: No Smoking end date: 07/30/87 Alcohol intake: current Drinks per week: 1 Substance use: never Gender identity (if verbalized by the patient): Male Spiritual care concerns: No Exam Narrative: Exam Narrative: GENERAL: Truncal obesity and speaking only single words or nodding his head. Wearing CPAP. HEAD: Normocephalic, atraumatic. EYES: PERRLA and EOMI. ENT: Aron
[2020-01-02 23:38] VITALS: PULSE 96; O2SAT 98
[2020-01-02 23:45] VITALS: BP 156/79; PULSE 92; RESP 20; O2SAT 95
[2020-01-02 23:47] LABS: Basophils Percent Auto 0.3 % (0.2-1.2); Eosinophils Absolute Auto 0.1 K/mm3 (0-0.3); Eosinophils Percent Auto 0.9 % (0-4.4); Hematocrit 35.1 % (42.0-52.0); Hemoglobin 11.4 g/dL (14.0-18.0); Immature Granulocyte Absolute 0.06 K/mm3 (0.00-0.031); Immature Granulocyte Percent A 0.6 % (0-0.5); Lymphocytes Absolute Auto 4.48 K/mm3 (0.9-3.2); Lymphocytes Percent Auto 45.1 % (18.3-44.2); Mean Corpuscular HGB Conc 32.5 g/dl (32-36); Mean Corpuscular Hemoglobin 37.1 pg (26-34); Mean Corpuscular Volume 114.3 fl (80-100); Mean Platelet Volume 11.2 fl (7.4-10.4); Monocytes Absolute Auto 0.9 K/mm3 (0.1-0.6); Monocytes Percent Auto 8.9 % (2.6-8.5); Neutrophils Absolute Auto 4.4 K/mm3 (1.3-6.7); Neutrophils Percent Auto 44.2 % (45.5-73.1); Nucleated Red Blood Cells Perc 0.4 % (0.0-0.2); Platelet Count Result 304 k/mm3 (150-375); Red Blood Count 3.07 M/mm3 (4.6-6.20); Red Cell Distribution Width 14.3 % (11.5-14.5); White Blood Count 9.9 K/mm3 (4.5-10.0)
[2020-01-03] VITALS (32 sets, daily range): BP systolic 91–152; BP diastolic 43–83; PULSE 40–98; RESP 16–99; TEMP 36.4–36.9; O2SAT 88–100; BMI 30.2
[2020-01-03 00:11] LABS: Alveolar/Arterial O2 Gradient 362.6 mmHg; Base Excess ABG 0.2 mEq/l (+/-2.0); Fractional Inspired Oxygen 100 %; HCO3 ABG 31.1 mEq/l (22.0-26.0); Oxygen Content ABG 17.3 %vol (16.0-22.0); Oxygen Saturation ABG 99.4 % (95.0-100.0); Oxyhemoglobin 97.8 % THb (90.0-100.0); PO2 ABG 261.2 mmHg (80.0-100.0); PO2 FiO2 Ratio Arterial Blood 2.61 %; Total Hemoglobin 12.1 g/dL (12.0-18.0)
[2020-01-03 00:11] LABS: Alanine Aminotransferase 19 U/L (4-50); Albumin Level 4.1 g/dL (3.5-5.1); Alkaline Phosphatase 69 U/L (38-126); Aspartate Amino Transferase 27 U/L (17-59); Bilirubin,Total 0.5 mg/dL (0.2-1.3); Blood Urea Nitrogen 19 mg/dL (9-20); Calcium 8.9 mg/dL (8.4-10.2); Carbon Dioxide 32 mmol/L (22-30); Chloride 98 mmol/L (98-107); Estimated Glomerular Filt Rate 58; Glucose 212 mg/dL (75-110); Potassium 4.7 mmol/L (3.4-5.0); Sodium 136 mmol/L (137-145)
[2020-01-03 00:13] LABS: PCO2 ABG 89.2 mmHg (35.0-45.0)
[2020-01-03 00:14] LABS: Troponin I < 0.012 ng/mL (0.000-0.034)
[2020-01-03 00:22] LABS: NT Pro B Type Natriuretic Pept 1700 PG/ML (5-100)
--- NOTE | 2020-01-03 00:35 | PC.NURSE ---
Pt to be intubated by EDP BICK. Kelly, RN at bedside along w/ respiratory. Etomidate administered 20mg IVP [facility] 0029 Succ administered 100mg IVP [facility] 0029 PT intubated W/ size 8 et tube 25 at the lip. 0030
--- NOTE | 2020-01-03 00:44 | PC.NURSE ---
Per [facility] EDP PLACIDO initiate propofol drip at 5 mcg/kg
--- NOTE | 2020-01-03 01:03 | PC.NURSE ---
Pt extubated himself. EDP notified. physician notified. [address] pt being bagged 0105 EDP at bedside. 0106 succ administered IVP pt reintuabed w/ size 8 Et tube 25 at the lip. 0108
[2020-01-03 01:04] LABS: Add Urine Microscopic? NO; Appearance Urine Clear (Clear); Bilirubin Urine Negative (Negative); Blood Urine Negative (Negative); Color Urine Yellow (Yellow); Glucose Urine UA Negative (Negative); Ketones Urine Negative (Negative); Leukocyte Esterase Ur Negative LEU/UL (Negative); Nitrate Urine Negative (Negative); Protein Urine Negative (Negative); RBC Urine 0-2 /hpf (0-2); Specific Grav Ur 1.014 (1.001-1.035); Urobilinogen Urine Negative mg/dL (<2.0); WBC Urine 0-3 /hpf
[2020-01-03] MEDS: PROPOFOL IV EMULSION 100 ML 3.3 MG IV CONT (01:35)
--- NOTE | 2020-01-03 01:55 | PC.NURSE ---
This patient, Freddy Mireles Jr., was admitted to Intensive Care Unit-9. Patient/family oriented to hospital policies and general routines including ID bracelet, bed and alarms, visiting hours, pain management, procedures, bathroom and other care routines, personal items, smoking policy, room service/diet, and visiting hours. Valuables list has been completed. Information on how to activate the Rapid Response Team has been discussed. Patient/Family are encouraged to report perceived risks to care and to ask questions if they do not understand what they are told or what they should do.
--- NOTE | 2020-01-03 02:20 | PM.IMHP ---
H&P: HPI History of Present Illness Chief complaint: flash pulmonary edema Narrative: This is an 79 year old male with known paroxysmal atrial fibrillation on chronic Eliquis therapy, Diabetes mellitus, and Diastolic heart failure who was just recently admitted to our Hospitalist service and discharged 1 week ago and now returned to the hospital with similar symptoms of acute severe shortness of breath. The patient's reported to EMS that the patient's shortness of breath started this evening after he went to bed. The patient was found to be in acute hypercapnic respiratory failure in the ER tonight and promptly intubated. This is the third time the patient has been intubated for flash pulmonary edema. CXR was obtained and demonstrated acute pulmonary edema. The patient was treated with IV lasix in the ER. See Supervisor has been consulted and we have been asked to admit the patient to the hospital for further care. On my encounter with the patient he is intubated, sedated, and on mechanical ventilation. No family is present at bedside. Medical history is obtained from chart review. Review of Systems Review of Systems: ROS unobtainable: Yes unobtainable due to medical condition [facility] Past Medical History Medical History Atrial fibrillation Chronic respiratory failure with hypoxia and hypercapnia Coronary artery disease Diabetes mellitus Diastolic heart failure H/O: HTN (hypertension) Hyperlipidemia Surgical History Surgical History History of angioplasty History of lumbar laminectomy Family History Family History Sibling Diabetes mellitus Mother Family history of Alzheimer's disease, Onset Age: 76 Family history of Parkinson's disease Father Family history of coronary artery disease Hypertension Cerebrovascular accident Chronic obstructive pulmonary disease Congestive heart failure Social History Social History Smoking packs per day: 2 Smoking cigarettes per day: 40.0 Years smoked: 30 Smoking pack-years: 60.00 Smoking status: Former smoker Tobacco type: cigarettes Second hand tobacco smoke exposure: No Smoking end date: 07/30/87 Alcohol intake: current Drinks per week: 1 Substance use: never Gender identity (if verbalized by the patient): Male Spiritual care concerns: No Meds Home Medications and Allergies Home Medications Medication Instructions Recorded Confirmed Type finasteride 5 mg tablet 5 mg PO DAILY 09/10/19 01/03/20 History rosuvastatin 5 mg tablet 5 mg PO DAILY 09/10/19 01/03/20 History cholecalciferol (vitamin D3) 50 50 mcg PO DAILY #1 cap 09/11/19 01/03/20 Rx mcg (2,000 unit) capsule fenofibric acid (choline) 135 mg 135 mg PO DAILY 09/11/19 01/03/20 History capsule,delayed release furosemide 40 mg tablet 40 mg PO BID 09/11/19 01/03/20 History multivitamin 1 cap PO DAILY 09/11/19 01/03/20 History omega3-dha 200 mg-epa 300 mg-othr 1 cap PO BID 09/11/19 01/03/20 History om3 100 mg-fish oil 1,000 mg capsule solifenacin 10 mg tablet 10 mg PO HS 09/11/19 01/03/20 History tamsulosin 0.4 mg capsule 0.4 mg PO DAILY #90 cap 11/07/19 01/03/20 Rx Eliquis 5 mg PO BID 12/18/19 01/03/20 History metformin 2,000 mg PO DAILY 12/18/19 01/03/20 History Trelegy Ellipta 1 inh INHALATION DAILY 12/19/19 01/03/20 History clopidogrel 75 mg PO DAILY 12/19/19 01/03/20 History cyanocobalamin (vitamin B-12) 500 mcg PO DAILY 12/19/19 01/03/20 History [Vitamin B-12] pregabalin 100 mg capsule 100 mg PO TID #90 cap 12/19/19 01/03/20 Rx coenzyme Q10 [CoQ-10] 200 mg PO DAILY 12/21/19 01/03/20 History sotalol 40 mg PO Q12H #30 tablet 12/27/19 01/03/20 Rx Allergies Allergy/AdvReac Type Severity Reaction Status Date / Time rivaroxaban [From
[2020-01-03 03:56] LABS: Troponin I 0.064 ng/mL (0.000-0.034)
[2020-01-03 04:09] LABS: Alveolar/Arterial O2 Gradient 565.2 mmHg; Base Excess ABG 4.4 mEq/l (+/-2.0); Fractional Inspired Oxygen 100 %; HCO3 ABG 33.1 mEq/l (22.0-26.0); Oxygen Content ABG 14.1 %vol (16.0-22.0); Oxygen Saturation ABG 92.1 % (95.0-100.0); Oxyhemoglobin 90.6 % THb (90.0-100.0); PO2 ABG 73.7 mmHg (80.0-100.0); PO2 FiO2 Ratio Arterial Blood 0.74 %
[2020-01-03 04:11] LABS: pH ABG 7.268 (7.350-7.450)
[2020-01-03 04:12] LABS: Device VENTILATOR; Modified Allen's Test Pass; PCO2 ABG 74.1 mmHg (35.0-45.0); Site Drawn RIGHT RADIAL
[2020-01-03 04:13] LABS: Arterial Blood Gas PEEP 5 cmH2O; Arterial Blood Gas Tidal Volume 500 ml; Arterial Blood Gas Vent Mode CMV; Arterial Blood Gas Ventilator rate 18 /MIN
[2020-01-03 05:56] LABS: Glucose Point of Care 125 (65-105)
[2020-01-03 08:05] LABS: Alveolar/Arterial O2 Gradient 537.6 mmHg; Base Excess ABG 5.8 mEq/l (+/-2.0); Fractional Inspired Oxygen 100 %; HCO3 ABG 29.9 mEq/l (22.0-26.0); Oxygen Content ABG 14.8 %vol (16.0-22.0); Oxygen Saturation ABG 98.8 % (95.0-100.0); Oxyhemoglobin 96.8 % THb (90.0-100.0); PCO2 ABG 41.1 mmHg (35.0-45.0); PO2 ABG 134.3 mmHg (80.0-100.0); PO2 FiO2 Ratio Arterial Blood 1.34 %; Total Hemoglobin 10.7 g/dL (12.0-18.0); pH ABG 7.479 (7.350-7.450)
[2020-01-03 08:06] LABS: Site Drawn RIGHT RADIAL
[2020-01-03 08:07] LABS: Troponin I 0.166 ng/mL (0.000-0.034)
[2020-01-03 08:07] LABS: Arterial Blood Gas PEEP 5 cmH2O; Arterial Blood Gas Tidal Volume 500 ml; Arterial Blood Gas Vent Mode CMV; Arterial Blood Gas Ventilator rate 18 /MIN; Device VENTILATOR; Modified Allen's Test Pass
[2020-01-03] MEDS: FUROSEMIDE INJ 40 MG/4 ML VIAL IV PUSH ×2 (09:08→16:34)
[2020-01-03] MEDS: CLOPIDOGREL BISULFATE 75 MG TABLET FEED TUBE (09:08)
[2020-01-03] MEDS: ROSUVASTATIN 5 MG TABLET FEED TUBE (09:08)
[2020-01-03] MEDS: TAMSULOSIN HCL 0.4 MG CAPSULE PO (09:08)
[2020-01-03] MEDS: PREGABALIN 50 MG CAPSULE 100 MG FEED TUBE ×3 (09:08→16:36)
[2020-01-03] MEDS: APIXABAN 5 MG TABLET FEED TUBE ×2 (09:08→16:34)
--- NOTE | 2020-01-03 09:25 | WPDCNINT ---
Assessment and Plan Assessment and plan (1) Acute heart failure with preserved ejection fraction (HFpEF): Code(s): I50.31 - Acute diastolic (congestive) heart failure Status: Acute Assessment and Plan: Diastolic congestive heart failure. He has xcuw-[id number]-apjmkwcf mitral regurg based on transesophageal echocardiography done recently. Continue IV diuretics. Strict intake output record and daily weight. He has a negative net fluid balance of about a liter since admission to ICU. Continue to monitor renal parameters and electrolytes. (2) Acute and chronic respiratory failure (ilrij-je-umxiitp): Code(s): J96.20 - Acute and chronic respiratory failure, unspecified whether with hypoxia or hypercapnia Status: Acute Assessment and Plan: He have chronic hypoxic and ? hypercarbic respiratory failure. He is morbidly obese and might be having a component of obesity hypoventilation syndrome. He had acute on chronic hypoxic and hypercarbic respiratory failure likely secondary to acute flash pulmonary edema. His thoracic imaging is suggestive of pulmonary edema. He is not actively wheezing. Does not think that he has acute COPD exacerbation as well. Systemic steroid not indicated. Continue mechanical ventilation at current settings. His hypercarbic respiratory failure has resolved. Decrease FiO2 to 80%. Will increase PEEP to 8. Low tidal volume strategies will be employed to prevent barotrauma. Continue to wean down PEEP and FiO2 if he is able to tolerated. Monitor ABG and chest x-ray. Continue sedation with fentanyl and Versed. He should ideally be on propofol instead of Versed but he has relative hypotension and bradycardia. (3) Pulmonary edema cardiac cause: Code(s): I50.1 - Left ventricular failure, unspecified Status: Acute Assessment and Plan: He is to have this repeated acute pulmonary edema about a year ago and was found to have left main atherosclerotic disease. He was sent to [facility] for possible CABG but he had stent placed at that time. Now he seems to have repeated episode of acute flash pulmonary edema again. Cardiology evaluation is underway. He will likely need a cardiac catheterization after he is extubated and diurese well. Continue aggressive diuresis. Keep an eye on the blood pressure is that is a bit on the lower side. Strict intake output record and elevate. (4) Essential hypertension: Code(s): I10 - Essential (primary) hypertension Status: Acute Assessment and Plan: Blood pressure is borderline low. He is bradycardic as well. Cardiology is okay to continue sotalol knowing that he seems to have his bradycardia and borderline low blood pressure. (5) Atrial fibrillation: Qualifiers: Atrial fibrillation type: unspecified Qualified Code(s): I48.91 - Unspecified atrial fibrillation Code(s): I48.91 - Unspecified atrial fibrillation Status: Chronic Assessment and Plan: Continue sotalol. Keep close eye on the blood pressure and heart rate is his heart rate is in 40s and 50s which is not new and he used to have this heart rate in the past as well. Continue Eliquis. Monitor for any bleeding. (6) Diabetes mellitus: Qualifiers: Diabetes mellitus complication status: without complication Diabetes mellitus press tender long goods insulin use: without group home use Diabetes mellitus type: type 2 Qualified Code(s): E11.9 - Type 2 diabetes mellitus without complications Code(s): E11.9 - Type 2 diabetes mellitus without complications Status: Chronic Assessment and Plan: Continue insulin sliding scale. Hold off metformin. (7) COPD (chronic obstructive pulmonary disease): Qualifiers: COPD type: unspecified COPD Qualified Code(s): J44.9 - Chronic obstructive pulmonary disease, unspecified Code(s): J44.9 - Chronic obstructive pulmonary dis
[2020-01-03] MEDS: ALBUTEROL SULFATE NEB 2.5 MG/0.5 ML INH INHALATION ×3 (09:48→20:22)
--- NOTE | 2020-01-03 09:53 | PM.CNCAR ---
Assessment and Plan Additional Plan He 79-year-old man with the above detailed history of ischemic heart disease and several previous interventions. This is his 2nd hospitalization within the couple of weeks with severe acute pulmonary edema requiring intubation. There was no electrocardiographic or biomarker evidence of acute myocardial infarction. Since he did have a left main coronary artery disease couple of years ago which was intervened upon percutaneously that these events certainly call into question ischemically mediated abrupt pulmonary edema. He also has a history of atrial fibrillation as I mentioned above but is maintaining sinus rhythm at this time. The patient will need to be diuresed once again out of pulmonary edema and in my opinion we need to perform follow-up coronary angiography in this setting. I have to consider the options of performing an angiogram here at [facility] versus transferring him to a higher level of care when we arrived at that point in his case since with not appropriately performing left main intervention here at it at this hospital and certainly if his left main was again a problem CABG would probably be the logical recommendation. Tony Miller MD [facility] History of Present Illness History of Present Illness Consult date/time: Date of service: 01/03/20 09:53 Consult reason: congestive heart failure Reason For Visit: flash pulmonary edema Narrative: This is an 79-year-old patient well known to us here at [facility] admitted to the hospital last evening with severe shortness of breath and severe pulmonary edema requiring intubation and mechanical ventilation to be initiated in the emergency department. He was admitted course to the ICU for further evaluation and management after this. He is in restraints apparently because shortly after intubation he pulled out his ET tube and had to be reintubated again down stairs. According to the records he was not having any chest pain. The patient is intubated in the ICU and therefore at this time not capable of providing any direct history. He has a longstanding history of coronary artery disease had a right coronary intervention done many years ago after which she was stable for a long time. He then developed this ischemic symptoms and had a lab LAD intervention done with a stent in the mid LAD in the year 1999. He was doing quite well for again many years and then became symptomatic with pulmonary edema in the year 2018. The pattern of that was very similar to what happened last night and adjust about a week ago when he was admitted here similarly. 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 He was referred over to [facility] with under with a expectation that time surgical revascularization would be performed. Apparently he was considered to be high risk candidate for surgery so he underwent a left main PCI with a stent by 1 of the interventionalists over there. Initially he did well but now he has had 2 subsequent hospitalizations couple of weeks ago and again now last night abrupt shortness of breath pulmonary edema requiring intubation and mechanical ventilator support. He had he also has a history of atrial fibrillation and some mitral valve regurgitation. For his atrial fibrillation he has been treated with sotalol and systemic anticoagulation with apixaban. The patient did have recent symptomatic recurrence of his atrial fib and several weeks ago was electrically cardioverted back to sinus rhythm. A ANDERSON cardioversion was done at that time which demonstrated some infero posterior hypokinesia but overall fairly good-looking left ventricle he does have rmsi-ei-msulevls mitral valve regurgitation. He is in sinus rhythm/sinus bradycardia at this time. He is in sinus bradycardia at baseline after being recently cardioverted this is not a new observation. Review of Systems
[2020-01-03 13:03] LABS: Glucose Point of Care 89 (65-105)
[2020-01-03] MEDS: PANTOPRAZOLE SODIUM IV 40 MG VIAL IV PUSH (13:20)
[2020-01-03 17:06] LABS: Glucose Point of Care 89 (65-105)
--- NOTE | 2020-01-03 17:24 | PM.IMPN ---
Progress Note: A&P Assessment and Plan (1) Acute respiratory failure with hypercapnia: Code(s): J96.02 - Acute respiratory failure with hypercapnia Status: Acute Assessment and Plan: Secondary to pulmonary edema and heart failure. Continue IV diuresis. Is anticoagulated fully with Eliquis and continue the same. Seen by Cardiology and will be planning repeat catheterization either here or at tertiary care (2) Diastolic heart failure: Code(s): I50.30 - Unspecified diastolic (congestive) heart failure Status: Acute Assessment and Plan: EF within the last few weeks 55% with diastolic dysfunction. Again as per Cardiology with the concern is possible left main disease that has recurred with the recurrent flash pulmonary edema. Will ventrally need to be Re catheterization. No beta-blockers with his bradyarrhythmia (3) Pulmonary edema: Qualifiers: Chronicity: acute Qualified Code(s): J81.0 - Acute pulmonary edema Code(s): J81.1 - Chronic pulmonary edema Status: Acute Assessment and Plan: Secondary to acute diastolic heart failure and possible ischemic. Troponins are flat and not significantly elevated with no definite EKG changes. Further intervention per Cardiology (4) Diabetes mellitus: Qualifiers: Diabetes mellitus type: type 2 Diabetes mellitus jail insulin use: without long term care phlebotomist use Diabetes mellitus complication status: without complication Qualified Code(s): E11.9 - Type 2 diabetes mellitus without complications Code(s): E11.9 - Type 2 diabetes mellitus without complications Status: Chronic Assessment and Plan: Continue sliding scale with oral hypoglycemics on hold (5) Atrial fibrillation: Qualifiers: Atrial fibrillation type: unspecified Qualified Code(s): I48.91 - Unspecified atrial fibrillation Code(s): I48.91 - Unspecified atrial fibrillation Status: Chronic Assessment and Plan: Status post electrical cardioversion 12/19/19 has maintained sinus bradycardia. And no beta-bubba secondary to that. Continues to be anticoagulated with Eliquis (6) H/O: HTN (hypertension): Code(s): Z86.79 - Personal history of other diseases of the circulatory system Status: Chronic Assessment and Plan: On no of antihypertensive other than furosemide (7) Hyperlipidemia: Qualifiers: Hyperlipidemia type: unspecified Qualified Code(s): E78.5 - Hyperlipidemia, unspecified Code(s): E78.5 - Hyperlipidemia, unspecified Status: Chronic Assessment and Plan: Continue statin (8) DVT prophylaxis: Code(s): Z29.9 - Encounter for prophylactic measures, unspecified Status: Acute Assessment and Plan: Kellee Trujillo Date/time seen: 01/03/20 17:24 Interval history: Date of visit 01/02. 79-year-old white male with coronary artery disease paroxysmal AFib diastolic heart failure admitted with acute respiratory failure secondary to pulmonary edema. Discharge just over week ago after treatment for the same. At that time he was shocky and had to be on pressors. Did have LAD and left main stents in 2018 and when presented with pulmonary edema and late 2018 repeat catheterization revealed those stents to be patent. Presently intubated in the ICU and sedated Exam Narrative: Exam Narrative: Blood pressure 106/50 pulse is 44 and regular sat 100% on FiO2 of 80% with 5 of peep afebrile Pupils are equal reactive to light ET tube in place neck is supple no carotid bruits Lungs some basilar crackles CV regular rate rhythm no murmurs Abdomen soft nontender Santos catheter in place draining clear yellow urine Extremities without edema dorsalis pedis posterior tibial 1+ to 2+ Neuro sedated Objective Data Vital Signs Vital Signs: Vital Signs - 24 hr 01/02/20 23:17 01/02/20 23:30 01/02/20 23:38 Temperature 36.5 C Pulse Rate 96 96 96 Respiratory
--- NOTE | 2020-01-03 18:45 | PC.NURSE ---
Dr. Lainez called to discuss patient blood pressure and bradycardia. Patient has been consistently with a heart rate in the low 40s, with intermittent, nonsustained decrease to 38-[address] Lainez and Dr. Miller are aware, and no further orders at this time. Advised that paient MAP has ranged from 59-72 since this nurse assumed care for patient at 1530. No additional orders at this time, will continue to monitor closely.
[2020-01-03 23:23] LABS: Glucose Point of Care 89 (65-105)
[2020-01-04] VITALS (15 sets, daily range): BP systolic 110–137; BP diastolic 41–67; PULSE 40–56; RESP 13–26; TEMP 36.5–37; O2SAT 92–100
[2020-01-04] MEDS: ALBUTEROL SULFATE NEB 2.5 MG/0.5 ML INH INHALATION ×3 (02:30→13:13)
[2020-01-04 04:26] LABS: Hemoglobin 9.1 g/dL (14.0-18.0); Mean Corpuscular HGB Conc 33.7 g/dl (32-36); Mean Corpuscular Hemoglobin 37.9 pg (26-34); Mean Corpuscular Volume 112.5 fl (80-100); Mean Platelet Volume 11.3 fl (7.4-10.4); Platelet Count Result 177 k/mm3 (150-375); Red Cell Distribution Width 14.6 % (11.5-14.5); White Blood Count 5.8 K/mm3 (4.5-10.0)
[2020-01-04 04:39] LABS: Alveolar/Arterial O2 Gradient 240.2 mmHg; Base Excess ABG 5.3 mEq/l (+/-2.0); Carboxyhemoglobin 0.3 % THb (0-2.0); Fractional Inspired Oxygen 50 %; Methemoglobin ABG 0.1 %THb (0-1.5); Oxygen Content ABG 12.8 %vol (16.0-22.0); Oxygen Saturation ABG 96.8 % (95.0-100.0); Oxyhemoglobin 94.1 % THb (90.0-100.0); PO2 ABG 78.1 mmHg (80.0-100.0); PO2 FiO2 Ratio Arterial Blood 1.56 %; Reduced Hemoglobin 5.5 %THb (0-5.0); Total Hemoglobin 9.6 g/dL (12.0-18.0)
[2020-01-04 04:40] LABS: Arterial Blood Gas Vent Mode CMV; Arterial Blood Gas Ventilator rate 18 /MIN; Device VENTILATOR; Modified Allen's Test Pass; Site Drawn LEFT RADIAL; pH ABG 7.534 (7.350-7.450)
[2020-01-04 04:40] LABS: Blood Urea Nitrogen 29 mg/dL (9-20); Calcium 8.5 mg/dL (8.4-10.2); Carbon Dioxide 31 mmol/L (22-30); Chloride 99 mmol/L (98-107); Estimated CRCL calculation 49 ml/min; Estimated Glomerular Filt Rate 53; Glucose 91 mg/dL (75-110); Magnesium 2.2 mg/dL (1.6-2.3); Phosphorus 3.2 mg/dL (2.5-4.5); Potassium 3.9 mmol/L (3.4-5.0); Sodium 134 mmol/L (137-145)
[2020-01-04 04:41] LABS: Arterial Blood Gas PEEP 8 cmH2O; Arterial Blood Gas Tidal Volume 500 ml
--- NOTE | 2020-01-04 08:13 | WPDINTPN ---
Progress Note: A&P Assessment and Plan (1) Acute heart failure with preserved ejection fraction (HFpEF): Code(s): I50.31 - Acute diastolic (congestive) heart failure Status: Acute Assessment and Plan: He has history of chronic Diastolic congestive heart failure. He has xein-gv-xgwefwdt mitral regurg based on transesophageal echocardiography done recently. Continue IV diuretics. Strict intake output record and daily weight. He has a negative net fluid balance of about 1.2 L in the last 24 hours. Continue to monitor renal parameters and electrolytes. (2) Acute and chronic respiratory failure (ilrgt-mz-invaaok): Code(s): J96.20 - Acute and chronic respiratory failure, unspecified whether with hypoxia or hypercapnia Status: Acute Assessment and Plan: He have chronic hypoxic and ? hypercarbic respiratory failure. He is morbidly obese and might be having a component of obesity hypoventilation syndrome. He had acute on chronic hypoxic and hypercarbic respiratory failure likely secondary to acute flash pulmonary edema. His thoracic imaging is suggestive of pulmonary edema. He is not actively wheezing. Does not think that he has acute COPD exacerbation as well. Systemic steroid not indicated. He has been extubated to BiPAP after he did well on SBT trial. Had a pCO2 of 51 while on SBT trial so he was placed on BiPAP immediately after extubation. He will be weaned off from BiPAP in 4-6 hours. An ABG will be checked 2 hours after weaning from BiPAP. Can continue BiPAP for increased work of breathing if indicated. Monitor ABG and chest x-ray. My level of suspicion for infectious process is very low. His symptoms started very acutely with no prior prodrome of cough upper respiratory symptoms and fever. His chest x-ray improved in a matter of 1-2 days with diuresis which is also suggestive of non infectious process. Hold off antibiotics for now. (3) Pulmonary edema cardiac cause: Code(s): I50.1 - Left ventricular failure, unspecified Status: Acute Assessment and Plan: He is to have this repeated acute pulmonary edema about a year ago and was found to have left main atherosclerotic disease. He was sent to [facility] for possible CABG but he had stent placed at that time. Now he seems to have repeated episode of acute flash pulmonary edema again. Cardiology recommendations appreciated. He will be transferred to [facility] for cardiac catheterization. Transfer center has been called and patient information was shared with them. He has not been accepted yet. Continue aggressive diuresis. Keep an eye on the blood pressure is that is a bit on the lower side. Strict intake output record and elevate. (4) Essential hypertension: Code(s): I10 - Essential (primary) hypertension Status: Acute Assessment and Plan: Continue to monitor hemodynamics with blood pressure and heart rate. Continue sotalol. He does have significant bradycardia at his baseline. (5) Atrial fibrillation: Qualifiers: Atrial fibrillation type: unspecified Qualified Code(s): I48.91 - Unspecified atrial fibrillation Code(s): I48.91 - Unspecified atrial fibrillation Status: Chronic Assessment and Plan: Continue sotalol. Yesterday her dose of sotalol has been on hold because of significant bradycardia with heart rate being in 40s and 50s. Keep close eye on the blood pressure and heart rate is his heart rate is in 40s and 50s which is not new and he used to have this heart rate in the past as well. Continue Eliquis. Monitor for any bleeding. He was recently evaluated by environmental health officer 2 days ago and has been told that he need ablation followed by a pacemaker placement. (6) Diabetes mellitus: Qualifiers: Diabetes mellitus complication status: without complication Diabetes mellitus shelter ins
[2020-01-04] MEDS: ROSUVASTATIN 5 MG TABLET FEED TUBE (08:15)
[2020-01-04] MEDS: PANTOPRAZOLE SODIUM IV 40 MG VIAL IV PUSH (08:15)
[2020-01-04] MEDS: APIXABAN 5 MG TABLET FEED TUBE (08:15)
[2020-01-04] MEDS: FUROSEMIDE INJ 40 MG/4 ML VIAL IV PUSH ×2 (08:15→17:00)
[2020-01-04] MEDS: CLOPIDOGREL BISULFATE 75 MG TABLET FEED TUBE (08:16)
[2020-01-04] MEDS: PREGABALIN 50 MG CAPSULE 100 MG FEED TUBE (08:17)
[2020-01-04 08:38] LABS: Alveolar/Arterial O2 Gradient 208.7 mmHg; Base Excess ABG 5.9 mEq/l (+/-2.0); Fractional Inspired Oxygen 50 %; HCO3 ABG 31.6 mEq/l (22.0-26.0); Oxygen Content ABG 13.3 %vol (16.0-22.0); Oxygen Saturation ABG 96.7 % (95.0-100.0); Oxyhemoglobin 94.4 % THb (90.0-100.0); PCO2 ABG 51.9 mmHg (35.0-45.0); PO2 ABG 89.4 mmHg (80.0-100.0); PO2 FiO2 Ratio Arterial Blood 1.79 %; Total Hemoglobin 9.9 g/dL (12.0-18.0); pH ABG 7.402 (7.350-7.450)
[2020-01-04 08:39] LABS: Arterial Blood Gas PEEP 5 cmH2O; Arterial Blood Gas Pressure Support 5 cmH2O; Arterial Blood Gas Vent Mode SPONTANEOUS; Device VENTILATOR; Modified Allen's Test Pass; Site Drawn RIGHT RADIAL
--- NOTE | 2020-01-04 09:58 | PM.PNCARD ---
Progress Note: A&P Additional Plan 79-year-old gentleman with: Above described to history of complex coronary disease now with 2 admissions with abrupt pulmonary edema within the last 2 weeks. Since he did receive a left main stent 2 years ago we need to be suspicious of the condition of the left main and a follow-up angiogram clearly needs to be done. In this setting study should be done ideally at a hospital where either high-risk PCI or CABG are available. I did contact Dr. Ed Harley at [facility] 2 is the high-risk interventionalist at that institution and made him aware of the situation. A hospitalist to hospitalist transfer should be arranged at this time. Patient may be transferred either today or tomorrow whichever is most convenient for all parties concerned I did discontinue the patient's apixaban in anticipation of him requiring procedures at [facility] Tony Miller MD [facility] Subjective Date/time seen: Date of service:01/04/20 09:58 Interval history: 79-year-old gentleman with: Long history of coronary artery disease and several previous interventional procedures. Most recently patient had a left main PCI done in 2018. He now presents twice within the last 2 weeks with abrupt pulmonary edema. Patient diuresed yesterday extubated this morning appears to be relatively comfortable all things considered History of paroxysmal atrial fibrillation several recurrences. Underwent DC cardioversion about 3 weeks ago still maintaining sinus rhythm but is rather bradycardic necessitating holding his sotalol Now that the patient is extubated conversation with him today about the situation. In my opinion he requires a follow-up angiogram to be done given the fact that he has had 2 admissions with abrupt pulmonary edema within the last 2 weeks. Since we are suspicious of left main stenosis that angiogram ideally should be done at a hospital where high-risk PCI or CABG is available. His previous care was at [facility] and he wishes to go back there Exam Const: General: no acute distress Other: Elderly gentleman relatively comfortable with a BiPAP mask on responsive and free of complaints this morning. Did not have any chest pain symptoms prior to being abruptly intubated the other night HENMT: Mouth: Yes moist mucous membranes Eyes: Sclera: sclerae normal Pupils: Equal, round and reactive pupils present Neck: Neck: supple and no JVD Thyroid: thyroid normal Lymphatic: lymphadenopathy Resp: Effort & Inspection: normal respiratory effort Other: Central rhonchi noted bilaterally Cardio: Rate: bradycardic Rhythm: regular rhythm GI: Auscultation: normal bowel sounds Skin: General skin exam: normal color Neuro: Cognition (Neuro): normal cognition Extrem: General: normal to inspection Objective Data Vital Signs Vital Signs: Vital Signs - 24 hr 01/03/20 10:00 01/03/20 11:10 01/03/20 12:00 Temperature 36.9 C Pulse Rate 44 L 43 L 43 L Respiratory Rate 18 18 Blood Pressure 99/51 L 97/54 L Pulse Oximetry 98 99 99 01/03/20 14:30 01/03/20 14:45 01/03/20 15:42 Temperature Pulse Rate 43 L 43 L 42 L Respiratory Rate 18 18 Blood Pressure 112/54 L Pulse Oximetry 99 100 01/03/20 16:00 01/03/20 16:24 01/03/20 18:00 Temperature 36.6 C Pulse Rate 42 L 41 L 40 L Respiratory Rate 18 18 Blood Pressure 107/49 L 103/43 L Pulse Oximetry 100 99 98 01/03/20 20:00 01/03/20 20:15 01/03/20 22:00 Temperature 36.9 C Pulse Rate 41 L 41 L 41 L Respiratory Rate 18 18 18 Blood Pressure 114/47 L 113/44 L Pulse Oximetry 99 100 99 01/03/20 23:18 01/04/20 00:00 01/04/20 02:00 Temperature 36.5 C Pulse Rate 42 L 41 L 45 L Respiratory Rate 18 18 Blood Pressure 110/43 L 117/43 L Pulse Oximetry 98 98 100 01/04/20 02:31 01/04/20 04:00 01/04/20 04:43 Temperature 37.0 C Pulse Rate 42 L 42 L 46 L Respiratory Rate 18 18 Blood Pressure 124/46 L Pulse Oximetry 99 98 98
[2020-01-04 12:01] LABS: Glucose Point of Care 99 (65-105)
[2020-01-04] MEDS: PREGABALIN 50 MG CAPSULE 100 MG PO (17:01)
[2020-01-04 17:16] LABS: Glucose Point of Care 88 (65-105)
--- NOTE | 2020-01-04 17:39 | PM.TDS ---
Transfer Discharge Sum: Prov Provider Date of admission: 01/03/20 00:45 Primary care physician: Houston Del Toro MD Admitting clinician: Iglesia Boogie MD Consults: 01/03/20 Consult to Physician Routine Comment: kori notified by exchange Consulting Provider: Tony Sheikh retail sales professional/MD group to consult: dr. sheikh notified Reason for consultation: Flash Pulmonary Edema Has provider been notified: Yes DS: Admitting Diagnosis Admitting Diagnosis Admitting Diagnosis: Acute diastolic (congestive) heart failure DS: Discharge Diagnosis Discharge Diagnosis (1) Acute respiratory failure with hypercapnia: Code(s): J96.02 - Acute respiratory failure with hypercapnia Status: Acute Assessment and Plan: Secondary to pulmonary edema. Was diuresed and able to be extubated a.m. 01/03. Repeat chest x-ray 01/03 so almost complete resolution of infiltrates of edema (2) Diastolic heart failure: Code(s): I50.30 - Unspecified diastolic (congestive) heart failure Status: Acute Assessment and Plan: Continued IV lasix therapy, Monitor fluid status, Is and Os, Daily weights. Check TSH w/ reflex T4. Recent Echocardiogram obtained. (3) Pulmonary edema: Qualifiers: Chronicity: acute Qualified Code(s): J81.0 - Acute pulmonary edema Code(s): J81.1 - Chronic pulmonary edema Status: Acute Assessment and Plan: Continue Lasix IV and after diuresis was able to extubate. Troponins were low in flat suggestion heart failure but no acute infarct. Was seen in consultation by cardiology and they were concerned that possible recurrent occlusion of left main lesion could be precipitating the flash pulmonary edema which had recurred just 2 weeks ago. Arrangements were made for the patient to be transferred to [facility] for repeat catheterization possible further intervention (4) Diabetes mellitus: Qualifiers: Diabetes mellitus type: type 2 Diabetes mellitus mcfp insulin use: without mcfp use Diabetes mellitus complication status: without complication Qualified Code(s): E11.9 - Type 2 diabetes mellitus without complications Code(s): E11.9 - Type 2 diabetes mellitus without complications Status: Chronic Assessment and Plan: Blood pressure remained well controlled on sliding scale and will resume his metformin once discharge Last A1c of record here 6.2 (5) Atrial fibrillation: Qualifiers: Atrial fibrillation type: unspecified Qualified Code(s): I48.91 - Unspecified atrial fibrillation Code(s): I48.91 - Unspecified atrial fibrillation Status: Chronic Assessment and Plan: Currently in sinus rhythm. Continued Eliquis therapy. But was held on discharge with anticipation of intervention. Pulse remains slow and sotalol was held. (6) H/O: HTN (hypertension): Code(s): Z86.79 - Personal history of other diseases of the circulatory system Status: Chronic Assessment and Plan: Stable. Blood pressure has been labile. Only home medication include is sotalol and it was held on discharge (7) Hyperlipidemia: Qualifiers: Hyperlipidemia type: unspecified Qualified Code(s): E78.5 - Hyperlipidemia, unspecified Code(s): E78.5 - Hyperlipidemia, unspecified Status: Chronic Assessment and Plan: Resumed fenofibric acid and statin. Transfer Discharge Sum: Med Medications Active and Home Medications: Home Medications finasteride 5 mg tablet 5 mg PO DAILY 09/10/19 [History Confirmed 01/03/20] rosuvastatin 5 mg tablet 5 mg PO DAILY 09/10/19 [History Confirmed 01/03/20] cholecalciferol (vitamin D3) 50 mcg (2,000 unit) capsule 50 mcg PO DAILY #1 cap 09/11/19 [Rx Confirmed 01/03/20] fenofibric acid (choline) 135 mg capsule,delayed release 135 mg PO DAILY 09/11/19 [History Confirmed 01/03/20] furosemide 40 mg tablet 40 mg PO BID 09/11/19 [History Confirmed 01/02
== END 2020-01-04 19:00 | disposition short-term general hospital (02) | DRG 208 ==
LOC: ANHED 01-03 00:42 → ANHICU 01-03 01:20
PROVIDERS: Internal Medicine Critical Care Medicine; Admitting Provider Family Medicine; Emergency Provider Emergency Medicine; PCP Family Medicine; Visit Provider Internal Medicine
DX: J96.22 Acute and chronic respiratory failure with hypercapnia (principal); I50.33 Acute on chronic diastolic (congestive) heart failure; J96.21 Acute and chronic respiratory failure with hypoxia; E78.5 Hyperlipidemia, unspecified; E11.9 Type 2 diabetes mellitus without complications; I11.0 Hypertensive heart disease with heart failure; I25.10 Atherosclerotic heart disease of native coronary artery without angina pectoris; Z87.891 Personal history of nicotine dependence; I48.91 Unspecified atrial fibrillation
CPT/HCPCS: 31500; 36415; 36600; 71045; 80048; 80053; 81003; 82375; 82805; 83050; 83735; 83880; 84100; 84443; 84484; 85025; 85027; 93005; 94002; 94640; 96365; 96375; 99291; A9270; C9113; J1940; J2250; J2704; J3010

== ENCOUNTER 2020-03-25 10:30 | Outpatient (RCR) | payer MEDICARE, SELFPAY ==
[2020-03-02 15:17] VITALS: BP 120/54; PULSE 80; RESP 16; TEMP 36.6; O2SAT 96
--- NOTE | 2020-03-02 15:46 | PCCPR ---
Ton does have intermittent back pain. It occurs after walking for several minutes. He does ambulate with a relator walker that also holds his oxygen. States she has been to several MD's who cannot tell him what is wrong with his back.
[2020-03-02 15:48] VITALS: PULSE 80
--- NOTE | 2020-04-08 11:15 | PCCPR ---
Addendum entered by Cande Taylor RN 04/29/20 14:52: Ton had an ICD placed on 04/26/20. He has a previously scheduled apt with Dr Miller tomorrow. He will ask if he has an idea when he may return to rehab. He is riding his [employer] bike at home most days for a few min. He does have restrictions for lifting and raising his left arm. Original Note: Medical [facility] progress report Spoke with Ton states he is home however very weak. He is supposed to see his EP sports apparel internship Dr Lopez tomorrow. He placed his ICD bivad pacemaker. Ton states he experienced a tachycardia event while in the ICU. States his O2 delivery has not changed. He is also supposed to follow up with Dr Miller in the next couple of weeks. He knows there will need time to improve strength.
--- NOTE | 2020-05-12 11:11 | PCCPR ---
Spoke with Ton today regarding his return. He stated that he is exercising at home, riding recumbent bike daily, and does not wish to return to program. Discharged.
== END 2020-05-12 11:13 | disposition home or self-care (01) ==
LOC: ANHCPREHAB 10:30
PROVIDERS: PCP Family Medicine; Visit Provider Specialist
DX: J44.9 Chronic obstructive pulmonary disease, unspecified (principal); J96.12 Chronic respiratory failure with hypercapnia; G47.33 Obstructive sleep apnea (adult) (pediatric)
CPT/HCPCS: 93798

== ENCOUNTER 2020-03-26 21:47 | Inpatient (IN) | payer MEDICARE, SELFPAY ==
--- NOTE | ~2020-03-26 | XR_ITS ---
EXAMINATION: XR chest 1V portable INDICATION: Pneumonia TECHNIQUE: Portable AP chest at 0549 hours COMPARISON: 03/26/2020 FINDINGS: There are worsening peripheral airspace opacities in the left mid and upper lung zones and developing airspace opacities of the left lung base. There is a small left pleural effusion. No pneum othorax is identified. A triple lead cardiac pacemaker of the left chest wall ends with leads in expe cted locations. The cardiomediastinal silhouette is stable. IMPRESSION: 1. Peripheral airspace opacities of the left lung with slight worsening, consistent with pneumonia. Reviewed, dictated and finalized at location A. IMPRESSION: 1. Peripheral airspace opacities of the left lung with slight worsening, consis tent with pneumonia.
--- NOTE | ~2020-03-26 | XR_ITS ---
EXAMINATION: XR chest 1V portable INDICATION: Ammonia and shortness of breath TECHNIQUE: Portable AP chest at 0523 hours COMPARISON: 04/01/2020 FINDINGS: Airspace opacities of the left upper lobe persist with slight worsening. There are developi ng airspace opacities of the lung bases. A small left pleural effusion is stable. No pneumothorax is identified. The heart size is normal. A triple lead cardiac pacemaker of the left chest wall ends wit h leads in expected locations. IMPRESSION: 1. Worsening airspace opacities of the left upper lobe and developing airspace opacities of the lung bases, consistent with atelectasis versus pneumonia. 2. Small left pleural effusion, stable. Reviewed, dictated and finalized at location A.
--- NOTE | ~2020-03-26 | CT_ITS ---
EXAMINATION: CT chest w con DATE: 03/28/2020 12:19 INDICATION: Left-sided pneumonia. Hemoptysis. TECHNIQUE: Computed tomography (CT) of the chest was performed with 75 cc Omnipaque 350 intravenous c ontrast. The dose-length product was 603.12 mGy-cm. Automated exposure control and iterative reconstr uction technique were employed. COMPARISON: CT dated 01/22/2017. FINDINGS: Moderate emphysema. Extensive left upper lobe airspace disease with air bronchograms, consi stent with pneumonia. Small pleural effusions, left greater than right. Heart size normal. Mildly enl arged aorticopulmonary window lymph node measuring 1.6 cm, likely reactive. Mildly enlarged subcarina l lymph node. There is atherosclerosis of the aorta and coronary arteries. No pneumothorax. Mild thor acic spondylosis. No acute osseous abnormality. IMPRESSION: 1. Left upper lobe pneumonia. 2: Small pleural effusions. Reviewed, dictated and finalized at location A.
--- NOTE | ~2020-03-26 | XR_ITS ---
XR chest 1V portable 03/26/2020 22:51 Indication: Left-sided chest pain. Hypertension. CHF. Procedure: AP portable chest Comparison: Comparison to multiple prior studies sequentially, with oldest reviewed study dated 12/23. Findings: There is asymmetric airspace disease of the left mid thorax. Cardiomegaly. Pacemaker leads are in expected position. No significant pleural effusion. No pneumothorax. Impression: 1: Asymmetric left-sided airspace disease, compatible with pneumonia. Reviewed, dictated and finalized at location A. Impression: 1: Asymmetric left-sided airspace disease, compatible with pneumonia.
--- NOTE | ~2020-03-26 | XR_ITS ---
EXAMINATION: XR chest 1V portable DATE: 03/31/2020 09:21 INDICATION: Pneumonia. Hemoptysis. TECHNIQUE: A single frontal view of the chest was obtained. COMPARISON: Chest single view 03/30/2020, chest CT 03/28/2020 FINDINGS: There are lucencies in the lungs, consistent with emphysema. There are airspace opacities i n left upper lobe with interval improvement, consistent with pneumonia. There is a small left pleural effusion. There is mild atelectasis at left lung base with interval improvement. No pneumothorax. Th e heart size is normal. There is a left chest pacer with leads in right atrium, right ventricle, and coronary sinus. IMPRESSION: 1. Left upper lobe airspace opacities with interval improvement, consistent with pneumonia. 2. Stable small left pleural effusion. 3. Emphysema. Reviewed, dictated and finalized at location A. IMPRESSION: 1. Left upper lobe airspace opacities with interval improvement, consistent wit h pneumonia. 2. Stable small left pleural effusion. 3. Emphysema.
[2020-03-26 21:52] VITALS: BP 109/48; PULSE 93; RESP 15; TEMP 37.6; O2SAT 94
[2020-03-26 22:02] VITALS: O2SAT 97
--- NOTE | 2020-03-26 22:38 | ECG_ITS ---
Measurements Intervals [place] Rate: 82 P: -2 TN: 194 QRS: 109 QRSD: 135 T: -30 QT: 390 QTc: 457 Interpretive Statements ELECTRONIC ATRIAL PACEMAKER ELECTRONIC VENTRICULAR PACEMAKER NO FURTHER INTERPRETATION IS POSSIBLE ATYPICAL ECG Electronically Signed On 03-27-2020 7:35:57 CDT by Sanya Stewart D.O.
[2020-03-26 23:12] LABS: Eosinophils Percent Auto 0.2 % (0-4.4); Hematocrit 23.1 % (42.0-52.0); Hemoglobin 7.7 g/dL (14.0-18.0); Immature Granulocyte Absolute 0.03 K/mm3 (0.00-0.031); Immature Granulocyte Percent A 0.6 % (0-0.5); Lymphocytes Percent Auto 19.5 % (18.3-44.2); Mean Corpuscular HGB Conc 33.3 g/dl (32-36); Mean Corpuscular Hemoglobin 37.6 pg (26-34); Mean Corpuscular Volume 112.7 fl (80-100); Mean Platelet Volume 10.6 fl (7.4-10.4); Monocytes Absolute Auto 0.5 K/mm3 (0.1-0.6); Monocytes Percent Auto 11.3 % (2.6-8.5); Neutrophils Absolute Auto 3.2 K/mm3 (1.3-6.7); Neutrophils Percent Auto 68.4 % (45.5-73.1); Platelet Count Result 198 k/mm3 (150-375); Red Blood Count 2.05 M/mm3 (4.6-6.20); Red Cell Distribution Width 13.8 % (11.5-14.5); White Blood Count 4.6 K/mm3 (4.5-10.0)
[2020-03-26 23:15] VITALS: BP 118/53; PULSE 80; RESP 17; O2SAT 98
[2020-03-26 23:22] LABS: INR 1.4; Prothrombin Time 17.1 Seconds (11.1-14.7)
[2020-03-26 23:23] LABS: Partial Thromboplastin Time 59.3 SECONDS (22.3-36.8)
[2020-03-26 23:24] LABS: Alanine Aminotransferase 19 U/L (4-50); Albumin Level 3.3 g/dL (3.5-5.1); Alkaline Phosphatase 56 U/L (38-126); Anion Gap 8 mmol/L (8-16); Aspartate Amino Transferase 29 U/L (17-59); Bilirubin,Total 0.3 mg/dL (0.2-1.3); Blood Urea Nitrogen 23 mg/dL (9-20); Calcium 8.2 mg/dL (8.4-10.2); Carbon Dioxide 26 mmol/L (22-30); Chloride 101 mmol/L (98-107); Estimated CRCL calculation 50 ml/min; Estimated Glomerular Filt Rate 58; Glucose 220 mg/dL (75-110); Potassium 4.2 mmol/L (3.4-5.0); Sodium 135 mmol/L (137-145)
[2020-03-26 23:35] LABS: NT Pro B Type Natriuretic Pept 1740 PG/ML (5-100)
[2020-03-26 23:36] LABS: Troponin I 0.022 ng/mL (0.000-0.034)
[2020-03-27] VITALS (11 sets, daily range): BP systolic 109–132; BP diastolic 39–64; PULSE 79–98; RESP 18–29; TEMP 36.8–37.3; O2SAT 93–98; BMI 30.8
[2020-03-27 01:46] LABS: Alveolar/Arterial O2 Gradient 108.3 mmHg; Base Excess ABG -0.3 mEq/l (+/-2.0); Carboxyhemoglobin 0.4 % THb (0-2.0); Device NASAL CANNULA; Fractional Inspired Oxygen 32 %; HCO3 ABG 23.8 mEq/l (22.0-26.0); Methemoglobin ABG 0.1 %THb (0-1.5); Modified Allen's Test Pass; Oxygen Content ABG 15.1 %vol (16.0-22.0); Oxygen Saturation ABG 95.7 % (95.0-100.0); Oxyhemoglobin 93.8 % THb (90.0-100.0); PO2 ABG 76.6 mmHg (80.0-100.0); PO2 FiO2 Ratio Arterial Blood 2.39 %; Reduced Hemoglobin 5.7 %THb (0-5.0); Site Drawn RIGHT RADIAL; Total Hemoglobin 11.4 g/dL (12.0-18.0); pH ABG 7.426 (7.350-7.450)
--- NOTE | 2020-03-27 02:01 | ED.SOB ---
HPI - SOB/Dyspnea General Chief Complaint: Shortness of Breath/Dyspnea Stated Complaint: cough Time Seen by Provider: 03/26/20 23:27 Source: patient Mode of arrival: ambulatory Limitations: no limitations History of Present Illness HPI Narrative: This patient is an 79 year old male with history of DM, COPD, home oxygen who presents for evaluation of hemoptysis. He states he has been having worsening sob for 2 days. He has also been having a cough with bloody mucous. He was tested for COVID this morning an outpatient. He came to the ER because he started having left rib pain with inspiration. He also reports low grade fever. He denies history of DVT or PE. He does take plavix and Eliquis for CAD with stents. MD elicited complaint: cough Pertinent past history: COPD Related Data Home Medications Medication Instructions Recorded Confirmed finasteride 5 mg tablet 5 mg PO DAILY 09/10/19 03/27/20 fenofibric acid (choline) 135 mg 135 mg PO DAILY 09/11/19 03/27/20 capsule,delayed release furosemide 40 mg tablet 40 mg PO BID 09/11/19 03/27/20 multivitamin 1 cap PO DAILY 09/11/19 03/27/20 omega3-dha 200 mg-epa 300 mg-othr 1 cap PO BID 09/11/19 03/27/20 om3 100 mg-fish oil 1,000 mg capsule Eliquis 5 mg PO BID 12/18/19 03/27/20 clopidogrel [Plavix] 75 mg PO DAILY #0 12/19/19 03/27/20 cyanocobalamin (vitamin B-12) 500 mcg PO DAILY 12/19/19 03/27/20 [Vitamin B-12] coenzyme Q10 [CoQ-10] 200 mg PO DAILY 12/21/19 03/27/20 blood sugar diagnostic #10 each 02/26/20 03/27/20 amitriptyline 10 mg PO HS 03/27/20 03/27/20 metformin 2,000 mg PO DAILY 03/27/20 03/27/20 tamsulosin [Flomax] 0.4 mg PO DAILY 03/27/20 03/27/20 Allergies Allergy/AdvReac Type Severity Reaction Status Date / Time rivaroxaban [From Xarelto] Allergy Intermediate Hives Verified 01/14/20 11:11 Review of Systems Review of Systems: All systems reviewed & are unremarkable except as noted in HPI and below Constitutional: Constitutional: Reports chills and Reports fever(s) (low grade) Cardiovascular: Cardiovascular: Reports chest pain Respiratory: Respiratory: Reports cough, Reports dyspnea and Reports wheezing Gastrointestinal: Gastrointestinal: Denies abdominal pain, Denies nausea and Denies vomiting [facility] Past Medical History Medical History Atrial fibrillation Chronic respiratory failure with hypoxia and hypercapnia Coronary artery disease Diabetes mellitus Diastolic heart failure H/O: HTN (hypertension) Hyperlipidemia Surgical History Surgical History History of angioplasty History of lumbar laminectomy Social History Social History Smoking packs per day: 2 Smoking cigarettes per day: 40.0 Years smoked: 25 Smoking pack-years: 50.00 Smoking status: Former smoker Tobacco type: cigarettes Second hand tobacco smoke exposure: Yes Smoking end date: 07/30/87 Alcohol intake: current Drinks per week: 0 Substance use: never Substance use type: does not use Gender identity (if verbalized by the patient): Male Sexual Orientation (if Verbalized by the Patient): Straight or Heterosexual Spiritual care concerns: No Exam Const: General: alert Orientation/consciousness: patient oriented x3 HENMT: Head: normocephalic and atraumatic Face and sinus: face symmetric Throat: posterior oropharynx normal Eyes: EOM: EOMs intact bilaterally Chest: Chest palpation & inspection: normal inspection of the chest Resp: Effort & Inspection: normal respiratory effort and no retractions Auscultation: clear to auscultation bilaterally Cardio: Rate: regular rate Rhythm: regular rhythm Heart sounds: no murmurs GI: GI Palp: Yes Soft to palpation, No Tenderness to palpation present (GI), No Guarding due to palpation present (GI) and No Rigid due to palpation Skin: G
--- NOTE | 2020-03-27 03:57 | ADMGEN ---
This patient, Freddy Mireles Jr., was admitted to 3 [facility] Surg Room 326-01. Patient/family oriented to hospital policies and general routines including ID bracelet, bed and alarms, visiting hours, pain management, procedures, bathroom and other care routines, personal items, smoking policy, room service/diet, and visiting hours. Valuables list has been completed. Information on how to activate the Rapid Response Team has been discussed. Patient/Family are encouraged to report perceived risks to care and to ask questions if they do not understand what they are told or what they should do.
[2020-03-27] MEDS: PREGABALIN 50 MG CAPSULE 100 MG PO ×2 (13:51→18:00)
--- NOTE | 2020-03-27 16:39 | PM.IMHP ---
H&P: HPI History of Present Illness Date/Time: 03/27/20 16:39 Chief complaint: left pneumonia, hemoptysis Narrative: Freddy Mireles Jr. is a 79 year old male with past medical history of COPD hypertension coronary artery disease with atrial and ventricle pacemaker, patient presented emergency department with 2 days history of cough shortness of breath hemoptysis, blood streak sputum, he also complains of left upper chest pain with inspiration, he also complains of fever and chills, patient was tested for COVID-19 it is negative, chest x-ray showed left upper lobe consolidation. patient started on Zosyn and azithromycin, will continue present management for 2 days repeat chest x-ray on Sunday and further recommendation to follow Review of Systems Review of Systems: All systems reviewed & are unremarkable except as noted in HPI and below PMFSH Past Medical History Medical History Atrial fibrillation Chronic respiratory failure with hypoxia and hypercapnia Coronary artery disease Diabetes mellitus Diastolic heart failure H/O: HTN (hypertension) Hyperlipidemia Surgical History Surgical History History of angioplasty History of lumbar laminectomy Social History Social History Smoking packs per day: 2 Smoking cigarettes per day: 40.0 Years smoked: 25 Smoking pack-years: 50.00 Smoking status: Former smoker Tobacco type: cigarettes Second hand tobacco smoke exposure: Yes Smoking end date: 07/30/87 Alcohol intake: current Drinks per week: 0 Substance use: never Substance use type: does not use Gender identity (if verbalized by the patient): Male Sexual Orientation (if Verbalized by the Patient): Straight or Heterosexual Spiritual care concerns: No Meds Home Medications and Allergies Home Medications Medication Instructions Recorded Confirmed Type finasteride 5 mg tablet 5 mg PO DAILY 09/10/19 03/27/20 History cholecalciferol (vitamin D3) 50 50 mcg PO DAILY #1 cap 09/11/19 03/27/20 Rx mcg (2,000 unit) capsule fenofibric acid (choline) 135 mg 135 mg PO DAILY 09/11/19 03/27/20 History capsule,delayed release furosemide 40 mg tablet 40 mg PO BID 09/11/19 03/27/20 History multivitamin 1 cap PO DAILY 09/11/19 03/27/20 History omega3-dha 200 mg-epa 300 mg-othr 1 cap PO BID 09/11/19 03/27/20 History om3 100 mg-fish oil 1,000 mg capsule Eliquis 5 mg PO BID 12/18/19 03/27/20 History clopidogrel [Plavix] 75 mg PO DAILY #0 12/19/19 03/27/20 History cyanocobalamin (vitamin B-12) 500 mcg PO DAILY 12/19/19 03/27/20 History [Vitamin B-12] pregabalin 100 mg capsule 100 mg PO TID #90 cap 12/19/19 03/27/20 Rx coenzyme Q10 [CoQ-10] 200 mg PO DAILY 12/21/19 03/27/20 History blood sugar diagnostic #10 each 02/26/20 03/27/20 History blood sugar diagnostic #100 each 02/26/20 03/27/20 Rx blood-glucose meter #1 each 02/26/20 03/27/20 Rx fluticasone fur. 100 mcg-umeclid 1 inh INHALATION DAILY #60 each 03/16/20 03/27/20 Rx 62.5 mcg-vilant 25 mcg inhalat.powder amitriptyline 10 mg PO HS 03/27/20 03/27/20 History metformin 2,000 mg PO DAILY 03/27/20 03/27/20 History tamsulosin [Flomax] 0.4 mg PO DAILY 03/27/20 03/27/20 History Allergies Allergy/AdvReac Type Severity Reaction Status Date / Time rivaroxaban [From Xarelto] Allergy Intermediate Hives Verified 01/14/20 11:11 Vital Signs Vital Signs - 24 hr 03/26/20 21:52 03/26/20 22:02 03/26/20 23:15 Temperature 99.7 F H Pulse Rate 93 80 Respiratory Rate 15 17 Blood Pressure 109/48 L 118/53 L Pulse Oximetry 94 97 98 03/27/20 00:13 03/27/20 01:00 03/27/20 02:15 Temperature Pulse Rate 80 80 88 Respiratory Rate 22 H 25 H Blood Pressure 109/51 L 128/58 L Pulse Oximetry 98 94 03/27/20 02:45 03/27/20 03:01 03/27/20 04:08 Temperature 98.
[2020-03-27] MEDS: FUROSEMIDE 40 MG TABLET PO (17:57)
[2020-03-27] MEDS: OMEGA 3 POLYUNSAT FATTY ACIDS 1 GM CAP PO (17:57)
[2020-03-27] MEDS: APIXABAN 5 MG TABLET PO (17:57)
[2020-03-27] MEDS: ALBUTEROL SULFATE (*SP) AEROSOL 1 PUFF 6 PUFF INHALATION (20:20)
[2020-03-27] MEDS: AMITRIPTYLINE HCL 10 MG TABLET PO (20:37)
[2020-03-28 06:00] VITALS: BP 130/52; PULSE 82; RESP 20; TEMP 37.1; O2SAT 94
[2020-03-28 06:49] LABS: Glucose Point of Care 126 (65-105)
[2020-03-28 07:13] LABS: Basophils Percent Auto 0.2 % (0.2-1.2); Eosinophils Percent Auto 0.4 % (0-4.4); Hematocrit 22.8 % (42.0-52.0); Hemoglobin 7.3 g/dL (14.0-18.0); Immature Granulocyte Absolute 0.04 K/mm3 (0.00-0.031); Immature Granulocyte Percent A 0.9 % (0-0.5); Lymphocytes Absolute Auto 0.88 K/mm3 (0.9-3.2); Lymphocytes Percent Auto 19.6 % (18.3-44.2); Mean Corpuscular Hemoglobin 35.6 pg (26-34); Mean Corpuscular Volume 111.2 fl (80-100); Monocytes Absolute Auto 0.5 K/mm3 (0.1-0.6); Monocytes Percent Auto 10.7 % (2.6-8.5); Neutrophils Absolute Auto 3.1 K/mm3 (1.3-6.7); Neutrophils Percent Auto 68.2 % (45.5-73.1); Platelet Count Result 185 k/mm3 (150-375); Red Blood Count 2.05 M/mm3 (4.6-6.20); Red Cell Distribution Width 13.7 % (11.5-14.5); White Blood Count 4.5 K/mm3 (4.5-10.0)
[2020-03-28 07:44] LABS: Potassium 4.2 mmol/L (3.4-5.0)
[2020-03-28 07:47] LABS: Alanine Aminotransferase 25 U/L (4-50); Albumin Level 2.8 g/dL (3.5-5.1); Alkaline Phosphatase 44 U/L (38-126); Anion Gap 5 mmol/L (8-16); Aspartate Amino Transferase 36 U/L (17-59); Bilirubin,Total 0.4 mg/dL (0.2-1.3); Blood Urea Nitrogen 20 mg/dL (9-20); Calcium 8.1 mg/dL (8.4-10.2); Carbon Dioxide 29 mmol/L (22-30); Chloride 102 mmol/L (98-107); Estimated CRCL calculation 52 ml/min; Estimated Glomerular Filt Rate 53; Glucose 138 mg/dL (75-110); Sodium 136 mmol/L (137-145)
[2020-03-28] MEDS: FINASTERIDE 5 MG TABLET PO (09:08)
[2020-03-28] MEDS: MULTIVITAMINS THERAPEUTIC TAB (*BKC) 1 TABLET PO (09:08)
[2020-03-28] MEDS: metFORMIN HCL XR 500 MG TAB.SR.24H 2000 MG PO (09:08)
[2020-03-28] MEDS: OMEGA 3 POLYUNSAT FATTY ACIDS 1 GM CAP PO ×2 (09:08→17:44)
[2020-03-28] MEDS: CLOPIDOGREL BISULFATE 75 MG TABLET PO (09:09)
[2020-03-28] MEDS: CHOLECALCIFEROL 1,000 UNITS TABLET 2000 UNITS PO (09:09)
[2020-03-28] MEDS: APIXABAN 5 MG TABLET PO ×2 (09:09→17:44)
[2020-03-28] MEDS: FUROSEMIDE 40 MG TABLET PO ×2 (09:09→17:44)
[2020-03-28] MEDS: CYANOCOBALAMIN 500 MCG TABLET PO (09:09)
[2020-03-28] MEDS: PREGABALIN 50 MG CAPSULE 100 MG PO ×3 (09:09→17:44)
[2020-03-28] MEDS: ALBUTEROL SULFATE (*SP) AEROSOL 1 PUFF 6 PUFF INHALATION (10:59)
[2020-03-28 11:00] VITALS: O2SAT 92
[2020-03-28] MEDS: TAMSULOSIN HCL 0.4 MG CAPSULE PO (13:31)
[2020-03-28 14:00] VITALS: BP 116/59; PULSE 88; RESP 20; TEMP 36.8; O2SAT 99
--- NOTE | 2020-03-28 14:39 | PM.IMPN ---
Progress Note: A&P Assessment and Plan (1) Community acquired pneumonia: Code(s): J18.9 - Pneumonia, unspecified organism Status: Acute Assessment and Plan: 03/28/20 14:39 Freddy Mireles Jr. is a 79 year old male with past medical history of COPD hypertension coronary artery disease with atrial and ventricle pacemaker, patient presented emergency department with 2 days history of cough shortness of breath hemoptysis, blood streak sputum, he also complains of left upper chest pain with inspiration, he also complained of fever and chills, patient was tested for COVID-19 it is negative, chest x-ray showed left upper lobe consolidation. patient started on Zosyn and azithromycin, today patient still complains of cough and blood-streaked sputum, denies shortness of breath fever or chills. will continue present management will do CT scan of the chest tomorrow to further evaluate pneumonia and any concern for malignancy and further recommendation to follow. (2) Coronary artery disease: Code(s): I25.10 - Atherosclerotic heart disease of [place] coronary artery without angina pectoris Status: Acute Assessment and Plan: patient is clinically stable continue home regimen (3) Acute kidney injury: Code(s): N17.9 - Acute kidney failure, unspecified Status: Acute Assessment and Plan: most likely secondary to poor p.o. intake and dehydration will gently hydrate the patient and monitor kidney function (4) Suspected 2019 novel coronavirus infection: Code(s): Z20.828 - Contact with and (suspected) exposure to other viral communicable diseases Status: Acute Assessment and Plan: patient was tested for COVID-19 it is negative Subjective Date/time seen: 03/28/20 14:39 Freddy Mireles Jr. is a 79 year old male with past medical history of COPD hypertension coronary artery disease with atrial and ventricle pacemaker, patient presented emergency department with 2 days history of cough shortness of breath hemoptysis, blood streak sputum, he also complains of left upper chest pain with inspiration, he also complained of fever and chills, patient was tested for COVID-19 it is negative, chest x-ray showed left upper lobe consolidation. patient started on Zosyn and azithromycin, today patient still complains of cough and blood-streaked sputum, denies shortness of breath fever or chills. will continue present management will do CT scan of the chest tomorrow to further evaluate pneumonia and any concern for malignancy and further recommendation to follow. Review of Systems Review of Systems: All systems reviewed & are unremarkable except as noted in HPI and below Exam Narrative: Exam Narrative: elderly frail Const: General: no acute distress and uncomfortable HENMT: General nose exam: Normal nares present Mouth: Yes moist mucous membranes Eyes: General: appearance normal, both eyes and all related structures Sclera: sclerae normal Neck: Neck: supple Other: no retraction Resp: Other: diminishing air entry on the left side and rhonchi Cardio: Rate: regular rate Rhythm: regular rhythm GI: Auscultation: normal bowel sounds Other: not distended Skin: General skin exam: normal color Neuro: Speech: normal speech Sensory Exam: normal sensation Extrem: General: normal to inspection Psych: Affect: Anxious affect present Objective Data Vital Signs Vital Signs: Vital Signs - 24 hr 03/27/20 20:24 03/27/20 22:11 03/28/20 06:00 Temperature 99.2 F 98.8 F Pulse Rate 98 82 Respiratory Rate 20 20 Blood Pressure 120/39 L 130/52 L Pulse Oximetry 93 94 94 03/28/20 11:00 Temperature Pulse Rate Respiratory Rate Blood Pressure Pulse Oximetry 92 Intake/Output Intake/Output: Intake & Output 03/25/20 03/26/20 03/27/20 03/28/20 23:59 23:59 23:59 23:59 Intake Total 1820 1010 Output Total 700 1400 Balance 1120 -
[2020-03-28] MEDS: AMITRIPTYLINE HCL 10 MG TABLET PO (20:33)
[2020-03-28 22:00] VITALS: BP 96/41; PULSE 79; RESP 20; TEMP 37.4; O2SAT 94
[2020-03-28 22:36] VITALS: O2SAT 94
[2020-03-28 23:22] VITALS: BP 96/41; PULSE 79; RESP 20; TEMP 37.4; O2SAT 94
[2020-03-29] VITALS (21 sets, daily range): BP systolic 88–116; BP diastolic 49–73; PULSE 76–180; RESP 18–32; TEMP 35.9–36.9; O2SAT 94–100
[2020-03-29 06:29] LABS: Hematocrit 22.3 % (42.0-52.0); Hemoglobin 7.3 g/dL (14.0-18.0); Mean Corpuscular HGB Conc 32.7 g/dl (32-36); Mean Corpuscular Hemoglobin 36.7 pg (26-34); Mean Corpuscular Volume 112.1 fl (80-100); Mean Platelet Volume 10.7 fl (7.4-10.4); Platelet Count Result 196 k/mm3 (150-375); Red Blood Count 1.99 M/mm3 (4.6-6.20); Red Cell Distribution Width 14.2 % (11.5-14.5); White Blood Count 4.4 K/mm3 (4.5-10.0)
[2020-03-29 06:41] LABS: Anion Gap 6 mmol/L (8-16); Blood Urea Nitrogen 24 mg/dL (9-20); Calcium 8.2 mg/dL (8.4-10.2); Carbon Dioxide 29 mmol/L (22-30); Chloride 99 mmol/L (98-107); Estimated CRCL calculation 52 ml/min; Estimated Glomerular Filt Rate 53; Glucose 144 mg/dL (75-110); Potassium 3.9 mmol/L (3.4-5.0); Sodium 134 mmol/L (137-145)
[2020-03-29] MEDS: PREGABALIN 50 MG CAPSULE 100 MG PO ×3 (08:36→18:15)
[2020-03-29] MEDS: MULTIVITAMINS THERAPEUTIC TAB (*BKC) 1 TABLET PO (08:37)
[2020-03-29] MEDS: CLOPIDOGREL BISULFATE 75 MG TABLET PO (08:38)
[2020-03-29] MEDS: metFORMIN HCL XR 500 MG TAB.SR.24H 2000 MG PO (08:38)
[2020-03-29] MEDS: OMEGA 3 POLYUNSAT FATTY ACIDS 1 GM CAP PO ×2 (08:38→18:09)
[2020-03-29] MEDS: APIXABAN 5 MG TABLET PO ×2 (08:38→18:08)
[2020-03-29] MEDS: CHOLECALCIFEROL 1,000 UNITS TABLET 2000 UNITS PO (08:38)
[2020-03-29] MEDS: FUROSEMIDE 40 MG TABLET PO ×2 (08:38→18:08)
[2020-03-29] MEDS: FINASTERIDE 5 MG TABLET PO (08:38)
[2020-03-29] MEDS: CYANOCOBALAMIN 500 MCG TABLET PO (08:38)
[2020-03-29] MEDS: TAMSULOSIN HCL 0.4 MG CAPSULE PO (08:38)
--- NOTE | 2020-03-29 15:39 | PM.IMPN ---
Progress Note: A&P Assessment and Plan (1) Community acquired pneumonia: Code(s): J18.9 - Pneumonia, unspecified organism Status: Acute Assessment and Plan: 03/29/20 15:39 Freddy Mireles Jr. is a 79 year old male with past medical history of COPD hypertension coronary artery disease with atrial and ventricle pacemaker, patient presented emergency department with 2 days history of cough shortness of breath hemoptysis, blood streak sputum, he also complains of left upper chest pain with inspiration, he also complained of fever and chills, patient was tested for COVID-19 it is negative, chest x-ray showed left upper lobe consolidation. patient started on Zosyn and azithromycin, today patient still complains of cough and blood-streaked sputum, denies shortness of breath fever or chills. patient had a CT scan of the chest on 03/28 showed persistent left upper lobe pneumonia, today patient states feeling better the pain with cough is improved and there is minimal hemoptysis, denies any fever or chills, continue present management and repeat chest x-ray tomorrow and further recommendation to follow (2) Coronary artery disease: Code(s): I25.10 - Atherosclerotic heart disease of [place] coronary artery without angina pectoris Status: Acute Assessment and Plan: patient is clinically stable continue home regimen (3) Acute kidney injury: Code(s): N17.9 - Acute kidney failure, unspecified Status: Acute Assessment and Plan: most likely secondary to poor p.o. intake and dehydration will gently hydrate the patient and monitor kidney function (4) Suspected 2019 novel coronavirus infection: Code(s): Z20.828 - Contact with and (suspected) exposure to other viral communicable diseases Status: Acute Assessment and Plan: patient was tested for COVID-19 it is negative Subjective Date/time seen: 03/29/20 15:39 Freddy Mireles Jr. is a 79 year old male with past medical history of COPD hypertension coronary artery disease with atrial and ventricle pacemaker, patient presented emergency department with 2 days history of cough shortness of breath hemoptysis, blood streak sputum, he also complains of left upper chest pain with inspiration, he also complained of fever and chills, patient was tested for COVID-19 it is negative, chest x-ray showed left upper lobe consolidation. patient started on Zosyn and azithromycin, today patient still complains of cough and blood-streaked sputum, denies shortness of breath fever or chills. patient had a CT scan of the chest on 03/28 showed persistent left upper lobe pneumonia, today patient states feeling better the pain with cough is improved and there is minimal hemoptysis, denies any fever or chills, continue present management and repeat chest x-ray tomorrow and further recommendation to follow Review of Systems Review of Systems: All systems reviewed & are unremarkable except as noted in HPI and below Exam Narrative: Exam Narrative: elderly frail Const: General: no acute distress and uncomfortable HENMT: General nose exam: Normal nares present Mouth: Yes moist mucous membranes Eyes: General: appearance normal, both eyes and all related structures Sclera: sclerae normal Neck: Neck: supple Other: no retraction Resp: Effort & Inspection: normal respiratory effort Other: diminishing air entry on the left side and rhonchi Cardio: Rate: regular rate Rhythm: regular rhythm GI: Auscultation: normal bowel sounds Other: not distended Skin: General skin exam: normal color Neuro: Speech: normal speech Sensory Exam: normal sensation Extrem: General: normal to inspection Psych: Affect: Anxious affect present Objective Data Vital Signs Vital Signs: Vital Signs - 24 hr 03/28/20 22:00 03/28/20 22:36 03/28/20 23:22 Temperature 99.3 F 99.3 F Pulse Rate 79 79 Respiratory Rate 20 20 Blood Pre
--- NOTE | 2020-03-29 16:26 | ECG_ITS ---
Measurements Intervals [place] Rate: 178 P: [place]: 0 QRS: 234 QRSD: 146 T: 0 QT: 243 QTc: 418 Interpretive Statements SUPRAVENTRICULAR TACHYCARDIA RIGHT AXIS DEVIATION RIGHT BUNDLE BRANCH BLOCK INFERIOR ST ELEVATION MYOCARDIAL INFARCT- ACUTE ABNORMAL ECG Electronically Signed On 03-29-2020 17:52:19 CDT by Sanya Stewart D.O.
[2020-03-29 17:21] LABS: Troponin I 0.023 ng/mL (0.000-0.034)
--- NOTE | 2020-03-29 17:28 | PC.NURSE ---
This patient, Freddy Shannon Ronniebianca , was received from [facility] on 03/29/20 at 1728. Personal belongings list checked and signed. Patient/family oriented to unit policies and routines
--- NOTE | 2020-03-29 17:45 | PCDIET ---
On 03/29/2020 at 1625, the patient pressed his called light and said he was short of breath. I immediately went into the room and assessed the patient. His oxygen saturations were 97% on 3L NC. The patient stated that he was experiencing chest discomfort. I called Dr. Deshpande and obtained orders for a STAT EKG and requested that he come look at the patient. The electromedical equipment technician stated that the patient was having an acute AK so a Rapid Response was called.
--- NOTE | 2020-03-29 17:51 | PC.NURSE ---
This patient, Freddy Mireles Jr., was transferred to IMU on 03/29/20 at 1730. Personal belongings sent with patient. Report given at bedside to CAITIE Walton. Appropriate documentation sent with patient.
[2020-03-29] MEDS: AMIODARONE 150 MG/D5W 100 ML 150 MG/100 ML BAG 600 MG IV CONT (17:59)
[2020-03-29] MEDS: AMIODARONE 360 MG/D5W 200 ML 360 MG/200 ML BAG 33.3 MG IV CONT (18:03)
--- NOTE | 2020-03-29 18:39 | ECG_ITS ---
Measurements Intervals [place] Rate: 88 P: 3 CT: 198 QRS: 114 QRSD: 132 T: -35 QT: 392 QTc: 477 Interpretive Statements ELECTRONIC ATRIAL PACEMAKER ELECTRONIC VENTRICULAR PACEMAKER VENTRICULAR TRIGEMINY NO FURTHER INTERPRETATION IS POSSIBLE ABNORMAL ECG Electronically Signed On 03-30-2020 6:46:48 CDT by Sanya Stewart D.O.
[2020-03-29] MEDS: FENOFIBRATE NANOCRYSTALLIZED 145 MG TABLET PO (19:28)
[2020-03-29] MEDS: AMITRIPTYLINE HCL 10 MG TABLET PO (20:15)
[2020-03-29] MEDS: ALBUTEROL SULFATE (*SP) AEROSOL 1 PUFF 6 PUFF INHALATION (20:34)
[2020-03-30] VITALS (23 sets, daily range): BP systolic 100–124; BP diastolic 40–59; PULSE 76–87; RESP 18–22; TEMP 35.8–36.5; O2SAT 91–100
--- NOTE | 2020-03-30 | ECHO_ITS ---
Patient Info Name: Freddy Mireles Age: 79 years : 1940 Gender: Male Ht: 74 in Wt: 233 lbs BSA: 2.37 m2 HR: 85 bpm BP: 111 / 59 mmHg Heart Rhythm: Sinus Rhythm Technical Quality: Fair Exam Date: 03/30/2020 3:12 PM Exam Location: [facility] Pulmonary Patient Status: Inpatient Admit Date: 03/27/2020 Staff Ordering Physician: Beni Becker MD Retina Subspecialist: Aaliyah White RDCS Attending Provider: Iglesia Boogie MD Referring Physician: Rosita ZAMAN; Exam Type: CA echo doppler color flow Study Info Indications R00.0 - Tachycardia, unspecified Complete two-dimensional, color flow and Doppler transthoracic echocardiogram is performed. Summary 1. Complete two-dimensional, color flow and Doppler transthoracic echocardiogram is performed. 2. Left ventricular chamber dimension is mildly enlarged. 3. There is mildly increased left ventricular wall thickness. 4. Left ventricular systolic function is mildly reduced, estimated at 50-55%. 5. The left ventricular diastolic function is grade II diastolic dysfunction. 6. Global longitudinal strain is abnormal at -13 %. 7. The basal inferolateral wall, and mid inferolateral wall are akinetic. 8. The inferior wall is hypokinetic. 9. Left atrial chamber dimension is mildly enlarged. 10. There is moderate mitral valve regurgitation. 11. There is mild tricuspid valve regurgitation. 12. Mild pulmonary hypertension, estimated pulmonary arterial systolic pressure is 40 mmHg. Left Ventricle Left ventricular chamber dimension is mildly enlarged. Left ventricular systolic function is mildly reduced, estimated at 50-55%. There is mildly increased left ventricular wall thickness. The left ventricular diastolic function is grade II diastolic dysfunction. Global longitudinal strain is abnormal at -13 %. The basal inferolateral wall, and mid inferolateral wall are akinetic. The inferior wall is hypokinetic. The anterior wall, inferoseptal wall, anterolateral wall, anteroseptal wall, and apical cap are not scored. Right Ventricle Right ventricular chamber dimension is normal. Right ventricular systolic function is normal. Left Atria Left atrial chamber dimension is mildly enlarged. Right Atria Right atrial chamber dimension is normal. Atrial Septum Intact interatrial septum visualized by color flow imaging. Aortic Valve The aortic valve is trileaflet. There is mild aortic valve sclerosis. There is no aortic valve stenosis. There is trace aortic valve regurgitation. Pulmonic Valve The pulmonic valve is normal. There is no pulmonic valve stenosis. There is mild pulmonic regurgitation. Mitral Valve The mitral valve has normal leaflets. There is no mitral valve stenosis. There is moderate mitral valve regurgitation. Tricuspid Valve The tricuspid valve leaflets are normal. There is no significant tricuspid valve stenosis. There is mild tricuspid valve regurgitation. Mild pulmonary hypertension, estimated pulmonary arterial systolic pressure is 40 mmHg. Pericardium/Pleural The pericardium appears normal. There is no pericardial effusion. Inferior Vena Cava Normal inferior vena cava with >50% collapse upon inspiration consistent with normal right atrial pressure, 10 mmHg. Aorta The aortic root size at the sinus of Valsalva is normal. The prox ascending aorta size is normal. Left Ventricular Outflow Tract
[2020-03-30] MEDS: AMIODARONE 360 MG/D5W 200 ML 360 MG/200 ML BAG 16.7 MG IV CONT ×2 (00:10→11:45)
[2020-03-30 05:13] LABS: Hematocrit 23.4 % (42.0-52.0); Hemoglobin 7.6 g/dL (14.0-18.0); Mean Corpuscular HGB Conc 32.5 g/dl (32-36); Mean Corpuscular Hemoglobin 36.2 pg (26-34); Mean Corpuscular Volume 111.4 fl (80-100); Mean Platelet Volume 10.8 fl (7.4-10.4); Platelet Count Result 186 k/mm3 (150-375); White Blood Count 3.6 K/mm3 (4.5-10.0)
[2020-03-30 05:28] LABS: Anion Gap 6 mmol/L (8-16); Blood Urea Nitrogen 23 mg/dL (9-20); Calcium 8.6 mg/dL (8.4-10.2); Carbon Dioxide 30 mmol/L (22-30); Chloride 100 mmol/L (98-107); Estimated CRCL calculation 46 ml/min; Estimated Glomerular Filt Rate 53; Glucose 145 mg/dL (75-110); Sodium 136 mmol/L (137-145)
[2020-03-30] MEDS: CLOPIDOGREL BISULFATE 75 MG TABLET PO (09:39)
[2020-03-30] MEDS: metFORMIN HCL XR 500 MG TAB.SR.24H 2000 MG PO (09:39)
[2020-03-30] MEDS: APIXABAN 5 MG TABLET PO ×2 (09:39→18:00)
[2020-03-30] MEDS: MULTIVITAMINS THERAPEUTIC TAB (*BKC) 1 TABLET PO (09:40)
[2020-03-30] MEDS: TAMSULOSIN HCL 0.4 MG CAPSULE PO (09:40)
[2020-03-30] MEDS: CYANOCOBALAMIN 500 MCG TABLET PO (09:40)
[2020-03-30] MEDS: OMEGA 3 POLYUNSAT FATTY ACIDS 1 GM CAP PO ×2 (09:40→18:00)
[2020-03-30] MEDS: FINASTERIDE 5 MG TABLET PO (09:40)
[2020-03-30] MEDS: CHOLECALCIFEROL 1,000 UNITS TABLET 2000 UNITS PO (09:40)
[2020-03-30] MEDS: PREGABALIN 50 MG CAPSULE 100 MG PO ×3 (09:47→18:01)
[2020-03-30] MEDS: FENOFIBRATE NANOCRYSTALLIZED 145 MG TABLET PO (13:10)
--- NOTE | 2020-03-30 13:35 | PM.CNCAR ---
Assessment and Plan Assessment and plan (1) Wide-complex tachycardia: Code(s): I47.2 - Ventricular tachycardia Status: Acute Assessment and Plan: Probably VT. Will have his [employer] device interrogated. Will check a magnesium level. Echocardiogram will be ordered. DC amiodarone drip. Start amiodarone 200 mg daily (2) Coronary artery disease: Code(s): I25.10 - Atherosclerotic heart disease of [place] coronary artery without angina pectoris Status: Acute Assessment and Plan: continue current regimen (3) Cardiomyopathy: Code(s): I42.9 - Cardiomyopathy, unspecified Status: Acute Assessment and Plan: at [facility] recently there is some discrepancy regarding his ejection fraction. Will repeat 2D echocardiogram with Doppler here for clarification. If his EF is low, defibrillator upgrade will likely be needed (4) Essential hypertension: Code(s): I10 - Essential (primary) hypertension Status: Acute Assessment and Plan: at goal (5) Atrial fibrillation: Qualifiers: Atrial fibrillation type: unspecified Qualified Code(s): I48.91 - Unspecified atrial fibrillation Code(s): I48.91 - Unspecified atrial fibrillation Status: Chronic Assessment and Plan: status post AV fara ablation and biventricular pacer implantation in December 2019 History of Present Illness History of Present Illness Consult date/time: 03/30/20 13:35 Requesting physician: Hermes Deshpande MD Consult reason: Other ( tachycardia, wide complex) Reason For Visit: left pneumonia, hemoptysis Narrative: date of service 03/30/2020 Reason for consultation wide complex tachycardia History patient is an 79-year-old male with a complex medical history and follows with Dr. Miller as an outpatient. Will he has a history of coronary disease with a previous right coronary intervention performed remotely. His RCA is now occluded. He also has LAD stenting. He also has had a left main stent. He has had intermittent atrial fibrillation also. He did undergo an AV fara ablation and biventricular pacemaker implantation in December and also in December he did have a another stent placed to the LAD. There are some discrepancies regarding his ejection fraction. on a admitted through [facility] his LV g showed ejection fraction of 30-35% but his echocardiogram there was read as being a low normal EF. Regardless he came to this hospital a couple days ago for shortness of breath. He was COVID ruled out. He was also having some hemoptysis. He has been treated for pneumonia and then yesterday he had sudden onset of chest pain. He was found to be in a wide complex tachycardia. This remained for about 5-6 hours. He was given amiodarone and eventually converted back to an AV sequential paced rhythm. His pain subsequently stopped after his tachycardia and did he currently feels okay and denies any chest pain, recent shortness of breath, syncope, presyncope, paroxysmal nocturnal dyspnea, orthopnea, edema or palpitations. He did not feel palpitations yesterday despite a heart rate of nearly 200 beats per minute. Review of Systems Review of Systems: All systems reviewed & are unremarkable except as noted in HPI and below Constitutional: Constitutional: Denies lethargy Eyes: Eyes: Denies blurry vision ENT: Denies Normal hearing present Cardiovascular: Cardiovascular: Reports chest pain Respiratory: Respiratory: Reports hemoptysis and Denies dyspnea Gastrointestinal: Gastrointestinal: Denies abdominal pain Genitourinary: Genitourinary: Denies dysuria and Denies urinary frequency Musculoskeletal: Musculoskeletal: Denies back pain and Denies neck pain Integumentary/Breasts: Skin/Breast: Denies dry skin Neurologic: Denies headache(s) Psychiatric: Psychiatric: Denies anxiety and Denies confusion Endocrine: Endocrine: Denies excessive sweating and Denies fatigue Hemat
[2020-03-30 15:13] LABS: Magnesium 2.4 mg/dL (1.6-2.3)
[2020-03-30] MEDS: AMIODARONE HCL 200 MG TABLET PO (15:43)
--- NOTE | 2020-03-30 17:42 | PM.IMPN ---
Progress Note: A&P Assessment and Plan (1) Community acquired pneumonia: Code(s): J18.9 - Pneumonia, unspecified organism Status: Acute Assessment and Plan: 03/30/20 17:42 Freddy Mireles Jr. is a 79 year old male with past medical history of COPD hypertension coronary artery disease with atrial and ventricle pacemaker, patient presented emergency department with 2 days history of cough shortness of breath hemoptysis, blood streak sputum, he also complains of left upper chest pain with inspiration, he also complained of fever and chills, patient was tested for COVID-19 it is negative, chest x-ray showed left upper lobe consolidation. patient started on Zosyn and azithromycin, today patient still complains of cough and blood-streaked sputum, denies shortness of breath fever or chills. patient had a CT scan of the chest on 03/28 showed persistent left upper lobe pneumonia, on 03/29 late in the day patient developed V-tach discussed with cardiology started the patient on amnio drip and transferred to IMU patient converted, seen by Cardiology and stop the drip, further evaluate patient will have cardiac echo and may need cardiac catheterization further evaluation, today repeat chest x-ray shows persistent pneumonia, will continue doxycycline and Zosyn will add vancomycin to the regimen patient states feeling better the pain with cough is improved and there is minimal hemoptysis, denies any fever or chills, continue present management and repeat chest x-ray tomorrow and further recommendation to follow (2) Coronary artery disease: Code(s): I25.10 - Atherosclerotic heart disease of [place] coronary artery without angina pectoris Status: Acute Assessment and Plan: patient is clinically stable continue home regimen (3) Acute kidney injury: Code(s): N17.9 - Acute kidney failure, unspecified Status: Acute Assessment and Plan: most likely secondary to poor p.o. intake and dehydration will gently hydrate the patient and monitor kidney function (4) Suspected 2019 novel coronavirus infection: Code(s): Z20.828 - Contact with and (suspected) exposure to other viral communicable diseases Status: Acute Assessment and Plan: patient was tested for COVID-19 it is negative Subjective Date/time seen: 03/30/20 17:42 Freddy Mireles Jr. is a 79 year old male with past medical history of COPD hypertension coronary artery disease with atrial and ventricle pacemaker, patient presented emergency department with 2 days history of cough shortness of breath hemoptysis, blood streak sputum, he also complains of left upper chest pain with inspiration, he also complained of fever and chills, patient was tested for COVID-19 it is negative, chest x-ray showed left upper lobe consolidation. patient started on Zosyn and azithromycin, today patient still complains of cough and blood-streaked sputum, denies shortness of breath fever or chills. patient had a CT scan of the chest on 03/28 showed persistent left upper lobe pneumonia, on 03/29 late in the day patient developed V-tach discussed with cardiology started the patient on amnio drip and transferred to IMU patient converted, seen by Cardiology and stop the drip, further evaluate patient will have cardiac echo and may need cardiac catheterization further evaluation, today repeat chest x-ray shows persistent pneumonia, will continue doxycycline and Zosyn will add vancomycin to the regimen patient states feeling better the pain with cough is improved and there is minimal hemoptysis, denies any fever or chills, continue present management and repeat chest x-ray tomorrow and further recommendation to follow Review of Systems Review of Systems: All systems reviewed & are unremarkable except as noted in HPI and below Exam Narrative: Exam Narrative: elderly frail Const: General: no acute distress and uncomfortable HENMT: General
[2020-03-30] MEDS: FUROSEMIDE 40 MG TABLET PO (18:00)
[2020-03-30] MEDS: AMITRIPTYLINE HCL 10 MG TABLET PO (20:31)
[2020-03-30] MEDS: ALBUTEROL SULFATE (*SP) AEROSOL 1 PUFF 6 PUFF INHALATION (21:55)
[2020-03-31] VITALS (16 sets, daily range): BP systolic 96–117; BP diastolic 44–52; PULSE 79–86; RESP 20; TEMP 35.8–36.7; O2SAT 97–100
[2020-03-31 05:05] LABS: Hemoglobin 7.5 g/dL (14.0-18.0); Mean Corpuscular HGB Conc 32.6 g/dl (32-36); Mean Corpuscular Hemoglobin 35.9 pg (26-34); Mean Platelet Volume 10.8 fl (7.4-10.4); Platelet Count Result 197 k/mm3 (150-375); Red Blood Count 2.09 M/mm3 (4.6-6.20); Red Cell Distribution Width 13.9 % (11.5-14.5); White Blood Count 3.8 K/mm3 (4.5-10.0)
[2020-03-31 05:25] LABS: Anion Gap 4 mmol/L (8-16); Blood Urea Nitrogen 20 mg/dL (9-20); Calcium 8.2 mg/dL (8.4-10.2); Carbon Dioxide 32 mmol/L (22-30); Chloride 100 mmol/L (98-107); Estimated CRCL calculation 54 ml/min; Estimated Glomerular Filt Rate > 60; Glucose 144 mg/dL (75-110); Potassium 4.1 mmol/L (3.4-5.0); Sodium 136 mmol/L (137-145)
[2020-03-31] MEDS: metFORMIN HCL XR 500 MG TAB.SR.24H 2000 MG PO (09:19)
[2020-03-31] MEDS: OMEGA 3 POLYUNSAT FATTY ACIDS 1 GM CAP PO ×2 (09:20→17:34)
[2020-03-31] MEDS: CYANOCOBALAMIN 500 MCG TABLET PO (09:20)
[2020-03-31] MEDS: APIXABAN 5 MG TABLET PO ×2 (09:20→17:34)
[2020-03-31] MEDS: FINASTERIDE 5 MG TABLET PO (09:20)
[2020-03-31] MEDS: CHOLECALCIFEROL 1,000 UNITS TABLET 2000 UNITS PO (09:20)
[2020-03-31] MEDS: TAMSULOSIN HCL 0.4 MG CAPSULE PO (09:20)
[2020-03-31] MEDS: MULTIVITAMINS THERAPEUTIC TAB (*BKC) 1 TABLET PO (09:20)
[2020-03-31] MEDS: CLOPIDOGREL BISULFATE 75 MG TABLET PO (09:20)
[2020-03-31] MEDS: FUROSEMIDE 40 MG TABLET PO ×2 (09:20→17:34)
[2020-03-31] MEDS: AMIODARONE HCL 200 MG TABLET PO (09:20)
[2020-03-31] MEDS: FENOFIBRATE NANOCRYSTALLIZED 145 MG TABLET PO (09:20)
[2020-03-31] MEDS: PREGABALIN 50 MG CAPSULE 100 MG PO ×3 (09:23→17:34)
--- NOTE | 2020-03-31 12:14 | PM.PNCARD ---
Progress Note: A&P Additional Plan Continue current medical regimen including oral amiodarone dosage for ventricular tachycardia. Patient's pacemaker interrogation yesterday does confirm the diagnosis of ventricular tachycardia. When he is discharged from the hospital I will recommend that he follow-up with his [employer] director but given his advanced age simple medical treatment of this may be the best option Tony Miller MD [facility] Subjective Date/time seen: Date of service: 03/31/20 12:14 Interval history: Follow-up visit in this 79-year-old man with a very complex cardiac history including coronary artery disease, atrial arrhythmia is resistant to medical treatment and ablation as well as placement of a Bi V ICD device with ablation of his AV node. Patient is admitted with pneumonia of the left lung It during this hospitalization he developed abrupt tachycardia with respiratory distress and some chest pain. This was monomorphic ventricular tachycardia that was terminated with amiodarone bolus. This cannot be an atrial tachyarrhythmia since his AV node is ablated. Exam Narrative: Exam Narrative: Pleasant, alert and oriented Const: General: no acute distress; No confusion Orientation/consciousness: No confusion HENMT: General nose exam: Normal nares present Eyes: Sclera: sclerae normal Neck: Neck: supple and no JVD Chest: Other: no reproducible chest wall pain to palpation Resp: Auscultation: clear to auscultation bilaterally Cardio: Rate: regular rate Skin: General skin exam: normal color Neuro: General: No confusion Cranial nerves: No Normal hearing present Cognition (Neuro): normal cognition Speech: normal speech Extrem: General: normal to inspection Psych: Mental Status: mental status grossly normal Objective Data Vital Signs Vital Signs: Vital Signs - 24 hr 03/30/20 14:00 03/30/20 14:01 03/30/20 15:43 Temperature 35.9 C L Pulse Rate 81 80 80 Respiratory Rate 22 H Blood Pressure 111/59 L Pulse Oximetry 99 03/30/20 16:00 03/30/20 17:09 03/30/20 18:00 Temperature 35.8 C L Pulse Rate 80 84 80 Respiratory Rate 20 Blood Pressure 124/53 L Pulse Oximetry 100 03/30/20 20:00 03/30/20 20:01 03/30/20 20:46 Temperature 35.9 C L Pulse Rate 83 81 83 Respiratory Rate 18 18 Blood Pressure 109/49 L Pulse Oximetry 99 99 03/30/20 21:59 03/30/20 22:00 03/30/20 23:42 Temperature 35.8 C L Pulse Rate 87 84 81 Respiratory Rate 18 20 Blood Pressure 105/40 L Pulse Oximetry 93 03/31/20 00:00 03/31/20 02:00 03/31/20 04:00 Temperature 36.7 C Pulse Rate 83 83 80 Respiratory Rate 20 Blood Pressure 108/46 L Pulse Oximetry 97 03/31/20 06:00 03/31/20 08:26 03/31/20 09:20 Temperature 36.1 C L Pulse Rate 80 79 80 Respiratory Rate 20 Blood Pressure 107/45 L Pulse Oximetry 100 Intake/Output Intake/Output: Intake & Output 03/28/20 03/29/20 03/30/20 03/31/20 23:59 23:59 23:59 23:59 Intake Total 2090 1810 2116 730 Output Total 2350 1600 2350 3000 Balance -260 433 -234 -7043 Meds/Results Medications: Active Medications Generic Name Dose Route Start Last Admin Trade Name Freq PRN Reason Stop Dose Admin Albuterol 6 puff 03/27/20 01:57 03/30/20 21:55 Proventil Hfa INHALATION 6 puff QIDRT PRN Administration Shortness Of Breath Amiodarone HCl 200 mg 03/31/20 08:00 03/31/20 09:20 Pacerone PO 200 mg DAILY@0800 LAKESHIA Administration Amitriptyline HCl 10 mg 03/27/20 21:00 03/30/20 20:31 Elavil PO 10 mg HS LAKESHIA Administration Apixaban 5 mg 03/27/20 17:00 03/31/20 09:20 Eliquis PO 5 mg BID LAKESHIA Administration Clopidogrel Bisulfate 75 mg 03/28/20 09:00 03/31/20 09:20 Plavix PO 75 mg DAILY LAKESHIA Administration Cyanocobalamin 500 mcg 03/28/20 09:00 03/31/20 09:20 Vitamin B-12 Tab PO 500 mcg DAILY LAKESHIA Administration Dextrose 12.5 gm 03/27/20 12:43 D
--- NOTE | 2020-03-31 14:03 | PM.IMPN ---
Progress Note: A&P Assessment and Plan (1) Community acquired pneumonia: Code(s): J18.9 - Pneumonia, unspecified organism Status: Acute Assessment and Plan: 03/31/20 14:03 Freddy Shannon Aline Alexander is a 79 year old male with past medical history of COPD hypertension coronary artery disease with atrial and ventricle pacemaker, patient presented emergency department with 2 days history of cough shortness of breath hemoptysis, blood streak sputum, he also complains of left upper chest pain with inspiration, he also complained of fever and chills, patient was tested for COVID-19 it is negative, chest x-ray showed left upper lobe consolidation. patient started on Zosyn and azithromycin, today patient still complains of cough and blood-streaked sputum, denies shortness of breath fever or chills. patient had a CT scan of the chest on 03/28 showed persistent left upper lobe pneumonia, on 03/29 late in the day patient developed V-tach discussed with cardiology started the patient on amnio drip and transferred to IMU patient converted, seen by Cardiology and stop the drip, further evaluate patient will have cardiac echo and may need cardiac catheterization further evaluation, on 03/30 repeat chest x-ray showed persistent pneumonia, continued doxycycline and Zosyn and added vancomycin to the regimen, repeat chest x-ray showed slight improvemtn, patient states feeling better the pain with cough is improved and there is minimal hemoptysis, denies any fever or chills, continue present management and continue present management, repeat chest x-ray in 2 days and further recommendation to follow (2) Coronary artery disease: Code(s): I25.10 - Atherosclerotic heart disease of [place] coronary artery without angina pectoris Status: Acute Assessment and Plan: patient is clinically stable continue home regimen (3) Acute kidney injury: Code(s): N17.9 - Acute kidney failure, unspecified Status: Acute Assessment and Plan: most likely secondary to poor p.o. intake and dehydration will gently hydrate the patient and monitor kidney function (4) Suspected 2019 novel coronavirus infection: Code(s): Z20.828 - Contact with and (suspected) exposure to other viral communicable diseases Status: Acute Assessment and Plan: patient was tested for COVID-19 it is negative Subjective Date/time seen: 03/31/20 14:03 Freddyquique Mireles Jr. is a 79 year old male with past medical history of COPD hypertension coronary artery disease with atrial and ventricle pacemaker, patient presented emergency department with 2 days history of cough shortness of breath hemoptysis, blood streak sputum, he also complains of left upper chest pain with inspiration, he also complained of fever and chills, patient was tested for COVID-19 it is negative, chest x-ray showed left upper lobe consolidation. patient started on Zosyn and azithromycin, today patient still complains of cough and blood-streaked sputum, denies shortness of breath fever or chills. patient had a CT scan of the chest on 03/28 showed persistent left upper lobe pneumonia, on 03/29 late in the day patient developed V-tach discussed with cardiology started the patient on amnio drip and transferred to IMU patient converted, seen by Cardiology and stop the drip, further evaluate patient will have cardiac echo and may need cardiac catheterization further evaluation, on 03/30 repeat chest x-ray showed persistent pneumonia, continued doxycycline and Zosyn and added vancomycin to the regimen, repeat chest x-ray showed slight improvemtn, patient states feeling better the pain with cough is improved and there is minimal hemoptysis, denies any fever or chills, continue present management and continue present management, repeat chest x-ray in 2 days and further recommendation to follow Review of Systems Review of Systems: All systems reviewed & are unremarkabl
[2020-03-31] MEDS: AMITRIPTYLINE HCL 10 MG TABLET PO (21:52)
[2020-04-01] VITALS (7 sets, daily range): BP systolic 101–128; BP diastolic 50–60; PULSE 79–82; RESP 12–22; TEMP 36–37.1; O2SAT 96–100
[2020-04-01 05:25] LABS: Hematocrit 24.2 % (42.0-52.0); Hemoglobin 7.8 g/dL (14.0-18.0); Mean Corpuscular HGB Conc 32.2 g/dl (32-36); Mean Corpuscular Hemoglobin 35.8 pg (26-34); Mean Platelet Volume 11.1 fl (7.4-10.4); Platelet Count Result 191 k/mm3 (150-375); Red Blood Count 2.18 M/mm3 (4.6-6.20); Red Cell Distribution Width 14.2 % (11.5-14.5); White Blood Count 3.3 K/mm3 (4.5-10.0)
[2020-04-01 05:37] LABS: Estimated CRCL calculation 50 ml/min; Estimated Glomerular Filt Rate 58
[2020-04-01 05:39] LABS: Anion Gap 4 mmol/L (8-16); Blood Urea Nitrogen 23 mg/dL (9-20); Calcium 8.5 mg/dL (8.4-10.2); Carbon Dioxide 32 mmol/L (22-30); Chloride 99 mmol/L (98-107); Estimated CRCL calculation 50 ml/min; Estimated Glomerular Filt Rate 58; Glucose 129 mg/dL (75-110); Potassium 4.1 mmol/L (3.4-5.0); Sodium 135 mmol/L (137-145)
[2020-04-01] MEDS: CHOLECALCIFEROL 1,000 UNITS TABLET 2000 UNITS PO (09:06)
[2020-04-01] MEDS: metFORMIN HCL XR 500 MG TAB.SR.24H 2000 MG PO (09:06)
[2020-04-01] MEDS: AMIODARONE HCL 200 MG TABLET PO (09:06)
[2020-04-01] MEDS: CYANOCOBALAMIN 500 MCG TABLET PO (09:07)
[2020-04-01] MEDS: APIXABAN 5 MG TABLET PO ×2 (09:07→16:45)
[2020-04-01] MEDS: FINASTERIDE 5 MG TABLET PO (09:07)
[2020-04-01] MEDS: OMEGA 3 POLYUNSAT FATTY ACIDS 1 GM CAP PO ×2 (09:07→16:45)
[2020-04-01] MEDS: FUROSEMIDE 40 MG TABLET PO ×2 (09:07→16:45)
[2020-04-01] MEDS: CLOPIDOGREL BISULFATE 75 MG TABLET PO (09:07)
[2020-04-01] MEDS: PREGABALIN 50 MG CAPSULE 100 MG PO ×3 (09:07→16:45)
[2020-04-01] MEDS: MULTIVITAMINS THERAPEUTIC TAB (*BKC) 1 TABLET PO (09:07)
[2020-04-01] MEDS: FENOFIBRATE NANOCRYSTALLIZED 145 MG TABLET PO (09:07)
[2020-04-01] MEDS: TAMSULOSIN HCL 0.4 MG CAPSULE PO (09:07)
--- NOTE | 2020-04-01 09:54 | PM.PNCARD ---
Progress Note: A&P Assessment and Plan (1) Wide-complex tachycardia: Code(s): I47.2 - Ventricular tachycardia Status: Acute Assessment and Plan: This was sustained VT. continue amiodarone and follow up with electrophysiology next week (2) Coronary artery disease: Code(s): I25.10 - Atherosclerotic heart disease of [place] coronary artery without angina pectoris Status: Acute Assessment and Plan: continue current regimen (3) Cardiomyopathy: Code(s): I42.9 - Cardiomyopathy, unspecified Status: Acute Assessment and Plan: EF 50-55% (4) Essential hypertension: Code(s): I10 - Essential (primary) hypertension Status: Acute Assessment and Plan: at goal (5) Atrial fibrillation: Qualifiers: Atrial fibrillation type: unspecified Qualified Code(s): I48.91 - Unspecified atrial fibrillation Code(s): I48.91 - Unspecified atrial fibrillation Status: Chronic Assessment and Plan: status post AV fara ablation and biventricular pacer implantation in December 2019 Additional Plan discharge when okay with primary service Subjective Date/time seen: 04/01/20 09:54 Interval history: 79-year-old man with a very complex cardiac history including coronary artery disease, atrial arrhythmia is resistant to medical treatment and ablation as well as placement of a Bi V ICD device with ablation of his AV node. Patient is admitted with pneumonia of the left lung date of service 04/01/2020: He feels well. No chest pain or shortness breath. No arrhythmia noted on telemetry monitoring. Review of Systems Review of Systems: All systems reviewed & are unremarkable except as noted in HPI and below Constitutional: Constitutional: Denies excessive sweating, Denies fatigue, Denies headache(s) and Denies lethargy Eyes: Eyes: Denies blurry vision ENT: Denies Normal hearing present, Denies headache(s) and Denies neck pain Cardiovascular: Cardiovascular: Reports chest pain and Denies dyspnea Respiratory: Respiratory: Reports hemoptysis and Denies dyspnea Gastrointestinal: Gastrointestinal: Denies abdominal pain Genitourinary: Genitourinary: Denies dysuria and Denies urinary frequency Musculoskeletal: Musculoskeletal: Denies back pain and Denies neck pain Integumentary/Breasts: Skin/Breast: Denies dry skin Neurologic: Denies Normal hearing present, Denies confusion and Denies headache(s) Psychiatric: Psychiatric: Denies anxiety and Denies confusion Endocrine: Endocrine: Denies excessive sweating and Denies fatigue Hematologic/Lymphatic: Hematologic/Lymphatic: Denies easy bleeding and Denies easy bruising Allergic/Immunologic: Allergic/Immunologic: Denies GI upset with certain foods Exam Narrative: Exam Narrative: Pleasant, alert and oriented Const: General: no acute distress; No confusion Orientation/consciousness: No confusion HENMT: General nose exam: Normal nares present Eyes: Sclera: sclerae normal Neck: Neck: supple and no JVD Chest: Other: no reproducible chest wall pain to palpation Resp: Auscultation: clear to auscultation bilaterally Cardio: Rate: regular rate Skin: General skin exam: normal color Neuro: General: No confusion Cranial nerves: No Normal hearing present Cognition (Neuro): normal cognition Speech: normal speech Extrem: General: normal to inspection Psych: Mental Status: mental status grossly normal Objective Data Vital Signs Vital Signs: Vital Signs - 24 hr 03/31/20 10:00 03/31/20 12:00 03/31/20 12:55 Temperature Pulse Rate 80 80 80 Respiratory Rate 20 Blood Pressure 117/52 L Pulse Oximetry 99 03/31/20 14:00 03/31/20 16:00 03/31/20 16:19 Temperature 36.2 C L Pulse Rate 86 82 80 Respiratory Rate 20 Blood Pressure 96/44 L Pulse Oximetry 100 03/31/20 19:11 03/31/20 20:00 03/31/20 20:20 Temperature 35.8 C L Pulse Rate 80 81 Respirat
--- NOTE | 2020-04-01 12:58 | PM.IMPN ---
Progress Note: A&P Assessment and Plan (1) Community acquired pneumonia: Code(s): J18.9 - Pneumonia, unspecified organism Status: Acute Assessment and Plan: 04/01/20 12:58 Freddy Mireles Jr. is a 79 year old male with past medical history of COPD hypertension coronary artery disease with atrial and ventricle pacemaker, patient presented emergency department with 2 days history of cough shortness of breath hemoptysis, blood streak sputum, he also complains of left upper chest pain with inspiration, he also complained of fever and chills, patient was tested for COVID-19 it is negative, chest x-ray showed left upper lobe consolidation. patient started on Zosyn and azithromycin, today patient still complains of cough and blood-streaked sputum, denies shortness of breath fever or chills. patient had a CT scan of the chest on 03/28 showed persistent left upper lobe pneumonia, on 03/29 late in the day patient developed V-tach discussed with cardiology started the patient on amnio drip and transferred to IMU patient converted, seen by Cardiology and stop the drip, further evaluate patient will have cardiac echo and may need cardiac catheterization further evaluation, on 03/30 repeat chest x-ray showed persistent pneumonia, continued doxycycline and Zosyn and added vancomycin to the regimen, repeat chest x-ray on 03/31 showed slight improvement, today patient states feeling better the pain with cough is improved and there is minimal hemoptysis, denies any fever or chills, continue present management and continue present management, repeat chest x-ray tomorrow and if there is improvement in pneumonia, and heart rate is stable is okay with cardiology service will discharge the patient home tomorrow (2) Coronary artery disease: Code(s): I25.10 - Atherosclerotic heart disease of [place] coronary artery without angina pectoris Status: Acute Assessment and Plan: patient is clinically stable continue home regimen (3) Acute kidney injury: Code(s): N17.9 - Acute kidney failure, unspecified Status: Acute Assessment and Plan: most likely secondary to poor p.o. intake and dehydration will gently hydrate the patient and monitor kidney function (4) Suspected 2019 novel coronavirus infection: Code(s): Z20.828 - Contact with and (suspected) exposure to other viral communicable diseases Status: Acute Assessment and Plan: patient was tested for COVID-19 it is negative Subjective Date/time seen: 04/01/20 12:58 Freddy Mireles Jr. is a 79 year old male with past medical history of COPD hypertension coronary artery disease with atrial and ventricle pacemaker, patient presented emergency department with 2 days history of cough shortness of breath hemoptysis, blood streak sputum, he also complains of left upper chest pain with inspiration, he also complained of fever and chills, patient was tested for COVID-19 it is negative, chest x-ray showed left upper lobe consolidation. patient started on Zosyn and azithromycin, today patient still complains of cough and blood-streaked sputum, denies shortness of breath fever or chills. patient had a CT scan of the chest on 03/28 showed persistent left upper lobe pneumonia, on 03/29 late in the day patient developed V-tach discussed with cardiology started the patient on amnio drip and transferred to IMU patient converted, seen by Cardiology and stop the drip, further evaluate patient will have cardiac echo and may need cardiac catheterization further evaluation, on 03/30 repeat chest x-ray showed persistent pneumonia, continued doxycycline and Zosyn and added vancomycin to the regimen, repeat chest x-ray on 03/31 showed slight improvement, today patient states feeling better the pain with cough is improved and there is minimal hemoptysis, denies any fever or chills, continue present management and continue present management, repeat chest
--- NOTE | 2020-04-01 20:52 | PC.NURSE ---
This patient, Freddy Mireles Jr., was transferred to [facility] on 04/01/20 at 2040. Personal belongings sent with patient. Belongings list checked and signed with receiving [ ]. Report given to LYNN BLOOD. Appropriate documentation sent with patient.
--- NOTE | 2020-04-01 21:31 | PC.NURSE ---
This patient, Freddy Mireles Jr., was admitted to Medical Room 340-01. Patient/family oriented to hospital policies and general routines including ID bracelet, bed and alarms, visiting hours, pain management, procedures, bathroom and other care routines, personal items, smoking policy, room service/diet, and visiting hours. Valuables list has been completed. Information on how to activate the Rapid Response Team has been discussed. Patient/Family are encouraged to report perceived risks to care and to ask questions if they do not understand what they are told or what they should do.
[2020-04-01] MEDS: AMITRIPTYLINE HCL 10 MG TABLET PO (21:38)
[2020-04-02] VITALS (12 sets, daily range): BP systolic 102–132; BP diastolic 40–58; PULSE 79–83; RESP 15–20; TEMP 36.3–36.6; O2SAT 93–100
[2020-04-02 06:51] LABS: Mean Corpuscular Hemoglobin 36.2 pg (26-34); Mean Corpuscular Volume 113.1 fl (80-100); Mean Platelet Volume 11.3 fl (7.4-10.4); Platelet Count Result 211 k/mm3 (150-375); Red Blood Count 2.21 M/mm3 (4.6-6.20); Red Cell Distribution Width 14.1 % (11.5-14.5); White Blood Count 3.6 K/mm3 (4.5-10.0)
[2020-04-02 07:13] LABS: Anion Gap 5 mmol/L (8-16); Blood Urea Nitrogen 24 mg/dL (9-20); Calcium 8.8 mg/dL (8.4-10.2); Carbon Dioxide 35 mmol/L (22-30); Chloride 96 mmol/L (98-107); Estimated CRCL calculation 46 ml/min; Estimated Glomerular Filt Rate 53; Glucose 120 mg/dL (75-110); Potassium 4.2 mmol/L (3.4-5.0); Sodium 136 mmol/L (137-145)
[2020-04-02] MEDS: metFORMIN HCL XR 500 MG TAB.SR.24H 2000 MG PO (08:53)
[2020-04-02] MEDS: AMIODARONE HCL 200 MG TABLET PO (08:54)
[2020-04-02] MEDS: CYANOCOBALAMIN 500 MCG TABLET PO (08:55)
[2020-04-02] MEDS: OMEGA 3 POLYUNSAT FATTY ACIDS 1 GM CAP PO ×2 (08:55→17:09)
[2020-04-02] MEDS: APIXABAN 5 MG TABLET PO ×2 (08:55→17:09)
[2020-04-02] MEDS: FENOFIBRATE NANOCRYSTALLIZED 145 MG TABLET PO (08:55)
[2020-04-02] MEDS: MULTIVITAMINS THERAPEUTIC TAB (*BKC) 1 TABLET PO (08:55)
[2020-04-02] MEDS: CHOLECALCIFEROL 1,000 UNITS TABLET 2000 UNITS PO (08:55)
[2020-04-02] MEDS: PREGABALIN 50 MG CAPSULE 100 MG PO ×3 (08:55→17:09)
[2020-04-02] MEDS: FINASTERIDE 5 MG TABLET PO (08:55)
[2020-04-02] MEDS: TAMSULOSIN HCL 0.4 MG CAPSULE PO (08:55)
[2020-04-02] MEDS: FUROSEMIDE 40 MG TABLET PO ×2 (08:55→17:09)
[2020-04-02] MEDS: CLOPIDOGREL BISULFATE 75 MG TABLET PO (08:55)
[2020-04-02 10:02] LABS: Vancomycin Trough 6.1 ug/mL (10.0-20.0)
--- NOTE | 2020-04-02 11:26 | PM.PNCARD ---
Progress Note: A&P Additional Plan 78-year-old man with a substrate of ischemic heart disease prior inferior infarction and equivalent of left main stenting in the past. Recent stenting of the mid LAD. Patient has atrial fibrillation also with problematic heart rate control so he has had his AV node ablated and has a biventricular pacemaker device. Patient had episode of ventricular tachycardia several evenings ago that was terminated with amiodarone. He was relatively stable hemodynamically and did not require electrical cardioversion. He is now on p.o. amiodarone and from a cardiac perspective is a reasonable candidate for discharge. His chest x-ray this morning apparently was concerning and a pulmonology consultation has then been requested. The patient will be seen by his delicate fabrics presser at [facility] following this discharge. Tony Miller MD [facility] Subjective Date/time seen: Date of service:04/02/20 11:26 Interval history: 79-year-old gentleman with ischemic heart disease, valvular heart disease and history of atrial arrhythmias. Patient has ischemic LV dysfunction and a biventricular pacemaker device. Consulted to see him during this hospitalization for left lung pneumonia because of wide QRS tachycardia, unusual looking ventricular tachycardia which was terminated with amiodarone bolus. Patient is asymptomatic this morning and was hoping to be discharged. Apparently the chest x-ray this morning was concerning and pulmonology consultation has now been requested to determine if discharge is appropriate Exam Const: General: comfortable and no acute distress Other: pleasant elderly gentleman comfortable in no distress watching television HENMT: Mouth: Yes moist mucous membranes Eyes: Sclera: sclerae normal Pupils: Equal, round and reactive pupils present Neck: Neck: supple and no JVD Other: normal carotid pulses no bruits are audible Resp: Effort & Inspection: normal respiratory effort Other: patient has some central rhonchi Cardio: Rate: regular rate Rhythm: regular rhythm Other: electronically paced rhythm GI: Auscultation: normal bowel sounds Skin: General skin exam: normal color Neuro: Cognition (Neuro): normal cognition Objective Data Vital Signs Vital Signs: Vital Signs - 24 hr 04/01/20 12:00 04/01/20 16:00 04/01/20 20:00 Temperature 36.3 C L 36.0 C L 36.2 C L Pulse Rate 81 80 79 Respiratory Rate 12 12 22 H Blood Pressure 118/57 L 101/56 L 113/53 L Pulse Oximetry 98 99 97 04/02/20 00:00 04/02/20 04:00 04/02/20 06:34 Temperature 36.6 C 36.4 C Pulse Rate 80 80 82 Respiratory Rate 15 16 Blood Pressure 132/52 L 110/48 L Pulse Oximetry 97 93 04/02/20 08:00 04/02/20 08:54 04/02/20 10:00 Temperature 36.3 C L Pulse Rate 80 80 79 Respiratory Rate 18 Blood Pressure 113/58 L Pulse Oximetry 99 Intake/Output Intake/Output: Intake & Output 03/30/20 03/31/20 04/01/20 04/02/20 23:59 23:59 23:59 23:59 Intake Total 2115 2520 2240 1010 Output Total 4593 5241 5824 1050 [facility] -[phone] Meds/Results Medications: Active Medications Generic Name Dose Route Start Last Admin Trade Name Freq PRN Reason Stop Dose Admin Albuterol 6 puff 03/27/20 01:57 03/30/20 21:55 Proventil Hfa INHALATION 6 puff QIDRT PRN Administration Shortness Of Breath Amiodarone HCl 200 mg 03/31/20 08:00 04/02/20 08:54 Pacerone PO 200 mg DAILY@0800 LAKESHIA Administration Amitriptyline HCl 10 mg 03/27/20 21:00 04/01/20 21:38 Elavil PO 10 mg HS LAKESHIA Administration Apixaban 5 mg 03/27/20 17:00 04/02/20 08:55 Eliquis PO 5 mg BID LAKESHIA Administration Clopidogrel Bisulfate 75 mg 03/28/20 09:00 04/02/20 08:55 Plavix PO 75 mg DAILY LAKESHIA Administration Cyanocobalamin 500 mcg 03/28/20 09:00 04/02/20 08:55 Vitamin B-12 Tab PO 500 mcg DAILY LAKESHIA Administration Dextrose 12.5 gm 03/27/20 12
--- NOTE | 2020-04-02 11:38 | PM.IMPN ---
Progress Note: A&P Assessment and Plan (1) Community acquired pneumonia: Code(s): J18.9 - Pneumonia, unspecified organism Status: Acute Assessment and Plan: 04/02/20 11:38 Freddy Mireles Jr. is a 79 year old male with past medical history of COPD hypertension coronary artery disease with atrial and ventricle pacemaker, patient presented emergency department with 2 days history of cough shortness of breath hemoptysis, blood streak sputum, he also complains of left upper chest pain with inspiration, he also complained of fever and chills, patient was tested for COVID-19 it is negative, chest x-ray showed left upper lobe consolidation. patient started on Zosyn and azithromycin, today patient still complains of cough and blood-streaked sputum, denies shortness of breath fever or chills. patient had a CT scan of the chest on 03/28 showed persistent left upper lobe pneumonia, on 03/29 late in the day patient developed V-tach discussed with cardiology started the patient on amnio drip and transferred to IMU patient converted, seen by Cardiology and stop the drip, further evaluate patient will have cardiac echo and may need cardiac catheterization further evaluation, on 03/30 repeat chest x-ray showed persistent pneumonia, continued doxycycline and Zosyn and added vancomycin to the regimen, repeat chest x-ray on 03/31 showed slight improvement, today patient states feeling better the pain with cough is improved and there is minimal hemoptysis, denies any fever or chills, and plan was repeat chest x-ray and if there is significant improved will going discharge the patient home however chest x-ray done shows worsening pneumonia will continue doxycycline zosyn and vancomycin will consult Dr. Martin wood milling machine tender evaluation and further recommendation, patient's heart rate remains stable patient seen by shellfish shucker and further recommendation to follow. (2) Coronary artery disease: Code(s): I25.10 - Atherosclerotic heart disease of [place] coronary artery without angina pectoris Status: Acute Assessment and Plan: patient is clinically stable continue home regimen (3) Acute kidney injury: Code(s): N17.9 - Acute kidney failure, unspecified Status: Acute Assessment and Plan: most likely secondary to poor p.o. intake and dehydration will gently hydrate the patient and monitor kidney function (4) Suspected 2019 novel coronavirus infection: Code(s): Z20.828 - Contact with and (suspected) exposure to other viral communicable diseases Status: Acute Assessment and Plan: patient was tested for COVID-19 it is negative Subjective Date/time seen: 04/02/20 11:38 Freddy Mireles Jr. is a 79 year old male with past medical history of COPD hypertension coronary artery disease with atrial and ventricle pacemaker, patient presented emergency department with 2 days history of cough shortness of breath hemoptysis, blood streak sputum, he also complains of left upper chest pain with inspiration, he also complained of fever and chills, patient was tested for COVID-19 it is negative, chest x-ray showed left upper lobe consolidation. patient started on Zosyn and azithromycin, today patient still complains of cough and blood-streaked sputum, denies shortness of breath fever or chills. patient had a CT scan of the chest on 03/28 showed persistent left upper lobe pneumonia, on 03/29 late in the day patient developed V-tach discussed with cardiology started the patient on amnio drip and transferred to IMU patient converted, seen by Cardiology and stop the drip, further evaluate patient will have cardiac echo and may need cardiac catheterization further evaluation, on 03/30 repeat chest x-ray showed persistent pneumonia, continued doxycycline and Zosyn and added vancomycin to the regimen, repeat chest x-ray on 03/31 showed slight improvement, today patient states feeling better the pain wit
--- NOTE | 2020-04-02 18:56 | PM.CNPUL ---
Assessment and Plan Assessment and plan (1) Pneumonia: Qualifiers: Laterality: left Lung location: upper lobe of lung Pneumonia type: due to unspecified organism Qualified Code(s): J18.9 - Pneumonia, unspecified organism Code(s): J18.9 - Pneumonia, unspecified organism Status: Acute Assessment and Plan: Left upper lobe pneumonia, admitted a week ago, improved; feels much better, less cough, less sputum, less blood tinged color with expectoration. He has normal energy, and is able to walk normally. He wants to go home and has had 7 days of antibiotics. He has no fever. CXR today 04/02 shows persistent JACKY infiltrate. White count remains low 3.6. He is able to eat drink and walk. His oxygen requirement is back to baseline. This patient had Pseudomonas pneumonia in November. We will repeat a sputum sample. The growth will be suppressed by the current antibiotics but we will review the Gram stain, check a C are P and a urine antigen for strep pneumoniae. I think he is safe for discharge but we will obtain these labs in the event that he does not have improvement in his CXR. Pneumonia can take weeks to resolve radiographically. (2) COPD (chronic obstructive pulmonary disease): Qualifiers: COPD type: unspecified COPD Qualified Code(s): J44.9 - Chronic obstructive pulmonary disease, unspecified Code(s): J44.9 - Chronic obstructive pulmonary disease, unspecified Status: Chronic Assessment and Plan: long standing (3) NICOLE (obstructive sleep apnea): Code(s): G47.33 - Obstructive sleep apnea (adult) (pediatric) Status: Acute Assessment and Plan: History of Present Illness History of Present Illness Consult date: 04/07/20 Requesting physician: Hermes Deshpande MD Chief complaint: left pneumonia, hemoptysis Narrative: reason for consult: hemoptysis, JACKY pneumonia This 80 yo man has COPD, Chronic respiratory failure on supplemental oxygen at 3 L/min, and he is followed in our clinic, was last seen 01/13; he had 2 admissions before that visit, November and December. The December admission for cardiac, and he was transferred to [facility] for a AV fara ablation then a permanent Bi-V pacemaker a week later. He says that he has been feeling better since then. He was admitted last Monday 03/26 with increased cough, shortness of breath and garcia sputum that had pink tinge to it, not really blood streaking. This was going on for 2 days prior to the admission. He was started on Vanco, Zosyn and doxycycline for a JACKY pneumonia. He developed VT with a heart rate 180-200, improved with amiodarone. He feels much better. He has less sputum, is on his usual home O2 at 3 L/min and is asking to go home. Chest CT 03/28 showed moderate JACKY pneumonia. CXR shows persistent infiltrate but he feels much better. says he wants to go home. He is eating well, normal bowel habits, no fever, had a negative COVID 03/27. Review of Systems Review of Systems: All systems reviewed & are unremarkable except as noted in HPI and below PMFSH Past Medical History Medical History Atrial fibrillation Chronic respiratory failure with hypoxia and hypercapnia Coronary artery disease Diabetes mellitus Diastolic heart failure H/O: HTN (hypertension) Hyperlipidemia Surgical History Surgical History History of angioplasty History of lumbar laminectomy Family History Family History Sibling Diabetes mellitus Mother Family history of Alzheimer's disease, Onset Age: 76 Family history of Parkinson's disease Father Family his
[2020-04-02] MEDS: AMITRIPTYLINE HCL 10 MG TABLET PO (20:00)
[2020-04-03] VITALS: BP 98/42; PULSE 74; PULSE 80; RESP 20; TEMP 36.8; O2SAT 95
[2020-04-03 04:00] VITALS: BP 120/62; PULSE 80; RESP 22; TEMP 36.1; O2SAT 96
[2020-04-03 06:04] LABS: Hematocrit 25.8 % (42.0-52.0); Hemoglobin 8.4 g/dL (14.0-18.0); Mean Corpuscular HGB Conc 32.6 g/dl (32-36); Mean Corpuscular Hemoglobin 35.7 pg (26-34); Mean Corpuscular Volume 109.8 fl (80-100); Mean Platelet Volume 11.1 fl (7.4-10.4); Platelet Count Result 224 k/mm3 (150-375); Red Blood Count 2.35 M/mm3 (4.6-6.20); Red Cell Distribution Width 14.2 % (11.5-14.5); White Blood Count 3.7 K/mm3 (4.5-10.0)
[2020-04-03 06:05] LABS: Anion Gap 5 mmol/L (8-16); Blood Urea Nitrogen 24 mg/dL (9-20); Calcium 8.8 mg/dL (8.4-10.2); Carbon Dioxide 35 mmol/L (22-30); Chloride 97 mmol/L (98-107); Estimated CRCL calculation 46 ml/min; Estimated Glomerular Filt Rate 53; Glucose 164 mg/dL (75-110); Potassium 3.8 mmol/L (3.4-5.0); Sodium 137 mmol/L (137-145)
[2020-04-03 08:00] VITALS: BP 103/39; PULSE 82; PULSE 86; RESP 16; O2SAT 97
--- NOTE | 2020-04-03 08:26 | PCNWS ---
Weekly nutritional screen. Patient is tolerating current diet with adequate intake. No weight loss reported. No nutritional needs at this time.
[2020-04-03] MEDS: APIXABAN 5 MG TABLET PO (08:38)
[2020-04-03] MEDS: PREGABALIN 50 MG CAPSULE 100 MG PO (08:38)
[2020-04-03] MEDS: metFORMIN HCL XR 500 MG TAB.SR.24H 2000 MG PO (08:38)
[2020-04-03] MEDS: TAMSULOSIN HCL 0.4 MG CAPSULE PO (08:38)
[2020-04-03] MEDS: OMEGA 3 POLYUNSAT FATTY ACIDS 1 GM CAP PO (08:38)
[2020-04-03] MEDS: FENOFIBRATE NANOCRYSTALLIZED 145 MG TABLET PO (08:38)
[2020-04-03] MEDS: FUROSEMIDE 40 MG TABLET PO (08:38)
[2020-04-03] MEDS: MULTIVITAMINS THERAPEUTIC TAB (*BKC) 1 TABLET PO (08:38)
[2020-04-03] MEDS: CYANOCOBALAMIN 500 MCG TABLET PO (08:38)
[2020-04-03] MEDS: CHOLECALCIFEROL 1,000 UNITS TABLET 2000 UNITS PO (08:39)
[2020-04-03] MEDS: POTASSIUM CHLORIDE 20 MEQ TABLET 40 MEQ PO (08:39)
[2020-04-03] MEDS: FINASTERIDE 5 MG TABLET PO (08:39)
[2020-04-03] MEDS: CLOPIDOGREL BISULFATE 75 MG TABLET PO (08:39)
[2020-04-03 08:52] VITALS: PULSE 86
[2020-04-03] MEDS: AMIODARONE HCL 200 MG TABLET PO (08:52)
--- NOTE | 2020-04-03 09:03 | PM.PNCARD ---
Progress Note: A&P Assessment and Plan (1) Wide-complex tachycardia: Code(s): I47.2 - Ventricular tachycardia Status: Acute Assessment and Plan: This was sustained VT. continue amiodarone and follow up with electrophysiology next week (2) Coronary artery disease: Code(s): I25.10 - Atherosclerotic heart disease of [place] coronary artery without angina pectoris Status: Acute Assessment and Plan: continue current regimen (3) Cardiomyopathy: Code(s): I42.9 - Cardiomyopathy, unspecified Status: Acute Assessment and Plan: EF 50-55% (4) Essential hypertension: Code(s): I10 - Essential (primary) hypertension Status: Acute Assessment and Plan: at goal (5) Atrial fibrillation: Qualifiers: Atrial fibrillation type: unspecified Qualified Code(s): I48.91 - Unspecified atrial fibrillation Code(s): I48.91 - Unspecified atrial fibrillation Status: Chronic Assessment and Plan: status post AV fara ablation and biventricular pacer implantation in December 2019 okay to Discharge patient from cardiac perspective Subjective Date/time seen: 04/03/20 09:03 Interval history: 79-year-old man with a very complex cardiac history including coronary artery disease, atrial arrhythmia is resistant to medical treatment and ablation as well as placement of a Bi V ICD device with ablation of his AV node. Patient is admitted with pneumonia of the left lung date of service 04/03/2020: He feels well. No chest pain or shortness breath. No arrhythmia noted on telemetry monitoring. wants to go home Review of Systems Review of Systems: All systems reviewed & are unremarkable except as noted in HPI and below Constitutional: Constitutional: Denies excessive sweating, Denies fatigue, Denies headache(s) and Denies lethargy Eyes: Eyes: Denies blurry vision ENT: Denies Normal hearing present, Denies headache(s) and Denies neck pain Cardiovascular: Cardiovascular: Reports chest pain and Denies dyspnea Respiratory: Respiratory: Reports hemoptysis and Denies dyspnea Gastrointestinal: Gastrointestinal: Denies abdominal pain Genitourinary: Genitourinary: Denies dysuria and Denies urinary frequency Musculoskeletal: Musculoskeletal: Denies back pain and Denies neck pain Integumentary/Breasts: Skin/Breast: Denies dry skin Neurologic: Denies Normal hearing present, Denies confusion and Denies headache(s) Psychiatric: Psychiatric: Denies anxiety and Denies confusion Endocrine: Endocrine: Denies excessive sweating and Denies fatigue Hematologic/Lymphatic: Hematologic/Lymphatic: Denies easy bleeding and Denies easy bruising Allergic/Immunologic: Allergic/Immunologic: Denies GI upset with certain foods Exam Narrative: Exam Narrative: Pleasant, alert and oriented Const: General: comfortable and no acute distress; No confusion Orientation/consciousness: No confusion Other: pleasant elderly gentleman comfortable in no distress watching television HENMT: General nose exam: Normal nares present Mouth: Yes moist mucous membranes Eyes: Sclera: sclerae normal Pupils: Equal, round and reactive pupils present Neck: Neck: supple and no JVD Other: normal carotid pulses no bruits are audible Chest: Other: no reproducible chest wall pain to palpation Resp: Effort & Inspection: normal respiratory effort Auscultation: clear to auscultation bilaterally Other: patient has some central rhonchi Cardio: Rate: regular rate Rhythm: regular rhythm Other: electronically paced rhythm GI: Auscultation: normal bowel sounds Skin: General skin exam: normal color Neuro: General: No confusion Cranial nerves: Yes Equal, round and reactive pupils present and No Normal hearing present Cognition (Neuro): normal cognition Speech: normal speech Extrem: General: normal to inspection Psych: Mental Status: mental status grossly normal Objec
--- NOTE | 2020-04-03 09:19 | ECG_ITS ---
Measurements Intervals [place] Rate: 80 P: -21 [place]: 195 QRS: 110 QRSD: 134 T: -54 QT: 414 QTc: 478 Interpretive Statements ELECTRONIC ATRIAL PACEMAKER ELECTRONIC VENTRICULAR PACEMAKER NO FURTHER INTERPRETATION IS POSSIBLE ATYPICAL ECG Electronically Signed On 04-03-2020 11:10:36 CDT by Sanya Stewart D.O.
--- NOTE | 2020-04-03 09:20 | PM.PNPUL ---
Progress Note: A&P Assessment and Plan (1) Community acquired pneumonia: Qualifiers: Laterality: left Lung location: upper lobe of lung Qualified Code(s): J18.9 - Pneumonia, unspecified organism Code(s): J18.9 - Pneumonia, unspecified organism Status: Acute Assessment and Plan: - d/c vancomycin, zosyn and Azithromycin - oral Levaquin 750 mg PO OD for 5 days. There is slight increase risk of QTc pronlongation while on Amiodarone but there are no other good oral antibiotics that would cover Pseudomonas and Enterobacter that were cultured and tested from sputum in November and it's very likely that these organisms may be causing the current pneumonia. - EKG order now for baseline Qtc interval and again in three days as outpatient - Cardiology should be made aware. - Can be discharged from Pulmonary stand point - f/u CT chest non contrast ordered as an outpatient for four weeks - f/u with us in 6 weeks Subjective Date/time seen: 04/03/20 09:20 Interval history: 79 y/o with JACKY consolidation and pneumonia. Query as to whether Pseudomonas and Enterbacter growing in November sputum culture are culprits. He feels much better on current broad spectrum antibiotics and is down to home 3 liters oxygen. His sputum now is minimal and he's not able to give us a sputum culture. I think he can go home on oral Levaquin 750 mg PO OD for 5 days. f/u CT chest in 4 weeks. Qtc baseline and f/u EKG should be done in 2-3 days Review of Systems Review of Systems: All systems reviewed & are unremarkable except as noted in HPI and below Exam Narrative: Exam Narrative: elderly frail Const: General: no acute distress and uncomfortable HENMT: General nose exam: Normal nares present Mouth: Yes moist mucous membranes Eyes: General: appearance normal, both eyes and all related structures Sclera: sclerae normal Neck: Neck: supple Other: no retraction Resp: Effort & Inspection: normal respiratory effort Other: diminishing air entry on the left side and rhonchi Cardio: Rate: regular rate Rhythm: regular rhythm GI: Auscultation: normal bowel sounds Other: not distended Skin: General skin exam: normal color Neuro: Speech: normal speech Sensory Exam: normal sensation Extrem: General: normal to inspection Psych: Affect: Anxious affect present Objective Data Vital Signs Vital Signs: Vital Signs - 24 hr 04/02/20 10:00 04/02/20 12:00 04/02/20 14:09 Temperature 36.3 C L 36.3 C L Pulse Rate 79 82 83 Respiratory Rate 18 20 Blood Pressure 113/58 L 102/40 L Pulse Oximetry 99 97 04/02/20 16:00 04/02/20 17:08 04/02/20 18:23 Temperature 36.3 C L Pulse Rate 80 80 Respiratory Rate 16 Blood Pressure 110/46 L 113/47 L Pulse Oximetry 100 04/02/20 20:00 04/03/20 00:00 04/03/20 04:00 Temperature 36.4 C L 36.8 C 36.1 C L Pulse Rate 80 74 80 Respiratory Rate 18 20 22 H Blood Pressure 118/54 L 98/42 L 120/62 Pulse Oximetry 98 95 96 04/03/20 08:00 04/03/20 08:52 Temperature Pulse Rate 86 86 Respiratory Rate 16 Blood Pressure 103/39 L Pulse Oximetry 97 Intake/Output Intake/Output: Intake & Output 03/31/20 04/01/20 04/02/20 04/03/20 23:59 23:59 23:59 23:59 Intake Total 2520 2240 2713 840 Output Total 1633 2751 2025 4716 Eqjxrtu -0105 -777 812 -108 Meds/Results Medications: Active Medications Generic Name Dose Route Start Last Admin Trade Name Freq PRN Reason Stop Dose Admin Albuterol 6 puff 03/27/20 01:57 03/30/20 21:55 Proventil Hfa INHALATION 6 puff QIDRT PRN Administration Shortness Of Breath Amiodarone HCl 200 mg 03/31/20 08:00 04/03/20 08:52 Pacerone PO 200 mg DAILY@0800 LAKESHIA Administration Amitriptyline HCl 10 mg 03/27/20 21:00 04/02/20 20:00 Elavil PO 10 mg HS LAKESHIA Administration Apixaban 5 mg 03/27/20 17:00 04/03/20 08:38 Eliquis PO 5 mg BID LAKESHIA Administration Clopidogrel Bisulfate 75 mg 03/28/20 09:00 0
--- NOTE | 2020-04-03 10:29 | PM.DS ---
DS: Admitting Diagnosis Admitting Diagnosis Admitting Diagnosis: left pneumonia, hemoptysis DS: Discharge Diagnosis Discharge Diagnosis (1) Community acquired pneumonia: Qualifiers: Laterality: left Lung location: upper lobe of lung Qualified Code(s): J18.9 - Pneumonia, unspecified organism Code(s): J18.9 - Pneumonia, unspecified organism Status: Acute Assessment and Plan: 04/02/20 11:38 Freddy Mireles Jr. is a 79 year old male with past medical history of COPD hypertension coronary artery disease with atrial and ventricle pacemaker, patient presented emergency department with 2 days history of cough shortness of breath hemoptysis, blood streak sputum, he also complains of left upper chest pain with inspiration, he also complained of fever and chills, patient was tested for COVID-19 it is negative, chest x-ray showed left upper lobe consolidation. patient started on Zosyn and azithromycin, today patient still complains of cough and blood-streaked sputum, denies shortness of breath fever or chills. patient had a CT scan of the chest on 03/28 showed persistent left upper lobe pneumonia, on 03/29 late in the day patient developed V-tach discussed with cardiology started the patient on amnio drip and transferred to IMU patient converted, seen by Cardiology and stop the drip, further evaluate patient will have cardiac echo and may need cardiac catheterization further evaluation, on 03/30 repeat chest x-ray showed persistent pneumonia, continued doxycycline and Zosyn and added vancomycin to the regimen, repeat chest x-ray on 03/31 showed slight improvement, today patient states feeling better the pain with cough is improved and there is minimal hemoptysis, denies any fever or chills, and plan was repeat chest x-ray and if there is significant improved will going discharge the patient home however chest x-ray done shows worsening pneumonia will continue doxycycline zosyn and vancomycin will consult Dr. Martin professor of counseling evaluation and further recommendation, patient's heart rate remains stable patient seen by mid teacher and further recommendation to follow. (2) Coronary artery disease: Code(s): I25.10 - Atherosclerotic heart disease of [place] coronary artery without angina pectoris Status: Acute Assessment and Plan: patient is clinically stable continue home regimen (3) Acute kidney injury: Code(s): N17.9 - Acute kidney failure, unspecified Status: Acute Assessment and Plan: most likely secondary to poor p.o. intake and dehydration will gently hydrate the patient and monitor kidney function (4) Suspected 2019 novel coronavirus infection: Code(s): Z20.828 - Contact with and (suspected) exposure to other viral communicable diseases Status: Acute Assessment and Plan: patient was tested for COVID-19 it is negative DS: Summary Hospital Course Reason for hospitalization: Chief complaint: left pneumonia, hemoptysis Narrative: Freddy Mireles Jr. is a 79 year old male with past medical history of COPD hypertension coronary artery disease with atrial and ventricle pacemaker, patient presented emergency department with 2 days history of cough shortness of breath hemoptysis, blood streak sputum, he also complains of left upper chest pain with inspiration, he also complains of fever and chills, patient was tested for COVID-19 it is negative, chest x-ray showed left upper lobe consolidation. patient started on Zosyn and azithromycin, will continue present management for 2 days repeat chest x-ray on Sunday and further recommendation to follow Hospital Course: 04/02/20 11:38 Freddy Kesslersorinbianca Alexander is a 79 year old male with past medical history of COPD hypertension coronary artery disease with atrial and ventricle pacemaker, patient presented emergency department with 2 days history of cough shortness of breath hemoptysis, blood str
[2020-04-03 10:46] VITALS: O2SAT 98
== END 2020-04-03 11:18 | disposition home or self-care (01) | DRG 194 ==
LOC: ANHED 23:27 → ANH2MED 03-27 02:14 → ANH3MEDSUR 03-27 03:37 → ANHIMU 03-31 22:38 → ANH3MED 04-03 10:29 → ANH3MEDSUR 04-08 16:49 → ANHIMU 04-08 16:49
PROVIDERS: Internal Medicine Cardiovascular Disease; Admitting Provider Family Medicine; Emergency Provider General Practice; PCP Family Medicine; Visit Provider Family Medicine
DX: J18.9 Pneumonia, unspecified organism (principal); J44.0 Chronic obstructive pulmonary disease with (acute) lower respiratory infection; N17.9 Acute kidney failure, unspecified; I50.32 Chronic diastolic (congestive) heart failure; J96.12 Chronic respiratory failure with hypercapnia; J96.11 Chronic respiratory failure with hypoxia; I47.2 Ventricular tachycardia; I42.9 Cardiomyopathy, unspecified; I11.0 Hypertensive heart disease with heart failure; Z20.828 Contact with and (suspected) exposure to other viral communicable diseases; I25.10 Atherosclerotic heart disease of native coronary artery without angina pectoris; G47.33 Obstructive sleep apnea (adult) (pediatric); E11.9 Type 2 diabetes mellitus without complications; E78.5 Hyperlipidemia, unspecified; I48.91 Unspecified atrial fibrillation; Z79.01 Long term (current) use of anticoagulants; Z79.84 Long term (current) use of oral hypoglycemic drugs; Z79.899 Other long term (current) drug therapy; Z87.891 Personal history of nicotine dependence; Z95.0 Presence of cardiac pacemaker; Z95.5 Presence of coronary angioplasty implant and graft
CPT/HCPCS: 36415; 36600; 71045; 71260; 80048; 80053; 80202; 82375; 82565; 82805; 83050; 83735; 83880; 84484; 85025; 85027; 85610; 85730; 87040; 87635; 93005; 93306; 94640; 96365; 96367; 97110; 97116; 97161; 97165; 97530; 97535; 99285; A9270; C9803; G0378; J0282; J0456; J0696; J2543; J3370; Q9967; U0003

== ENCOUNTER 2020-04-06 11:30 | Outpatient (CLI) | payer MEDICARE, SELFPAY ==
[2020-04-06 12:18] LABS: Anion Gap 4 mmol/L (8-16); Blood Urea Nitrogen 24 mg/dL (9-20); Calcium 8.8 mg/dL (8.4-10.2); Carbon Dioxide 30 mmol/L (22-30); Chloride 101 mmol/L (98-107); Estimated Glomerular Filt Rate > 60; Glucose 106 mg/dL (75-110); Magnesium 1.9 mg/dL (1.6-2.3); Potassium 5.2 mmol/L (3.4-5.0); Sodium 135 mmol/L (137-145)
== END 2020-04-06 11:31 | disposition home or self-care (01) ==
LOC: ANHLAB 11:33
PROVIDERS: PCP Family Medicine; Visit Provider Specialist
DX: I25.118 Atherosclerotic heart disease of native coronary artery with other forms of angina pectoris (principal); M79.604 Pain in right leg; M79.605 Pain in left leg
CPT/HCPCS: 36415; 80048; 83735

== ENCOUNTER 2020-07-06 07:55 | Inpatient (IN) | payer MEDICARE, SELFPAY ==
[2020-07-06] VITALS (24 sets, daily range): BP systolic 93–135; BP diastolic 45–74; PULSE 79–83; RESP 12–19; TEMP 36.1–36.6; O2SAT 93–100; BMI 31.1
--- NOTE | ~2020-07-06 | XR_ITS ---
EXAMINATION: XR chest 2V DATE: 07/06/2020 08:43 INDICATION: Left-sided chest pain. COPD. TECHNIQUE: frontal and lateral views of the chest were obtained. COMPARISON: Chest radiograph dated 04/02/2020 FINDINGS: Elevation of the left hemidiaphragm. Persistent airspace opacities in the left mid and lower lung zon es. Right lung is clear. No pleural effusion or pneumothorax. The cardiomediastinal silhouette is nor mal. Three lead pacemaker/AICD seen with leads projecting over the expected locations of the right at rial appendage, apex of the right ventricle and overlying the left ventricle likely having traversed the coronary sinus. IMPRESSION: 1. Persistent airspace opacities in the left mid and lower lung zone which could represent atelectasi s and/or pneumonia. Reviewed, dictated and finalized at location A. THA WASHING SYSTEM OPERATOR IMPRESSION: 1. Persistent airspace opacities in the left mid and lower lung zone which coul d represent atelectasis and/or pneumonia.
--- NOTE | 2020-07-06 07:58 | ECG_ITS ---
Measurements Intervals [place] Rate: 80 P: -39 [place]: 158 QRS: 182 QRSD: 157 T: 25 QT: 418 QTc: 484 Interpretive Statements ELECTRONIC ATRIAL PACEMAKER WITH INHIBITION ELECTRONIC VENTRICULAR PACEMAKER VENTRICULAR PREMATURE COMPLEX BASELINE ARTIFACT- I, II, AVR, AVL, AVF, V6 NO FURTHER INTERPRETATION IS POSSIBLE ATYPICAL ECG Electronically Signed On 07-06-2020 9:12:49 TELETYPE MECHANIC by Sanya Stewart D.O.
--- NOTE | 2020-07-06 08:18 | ED.CHESTPAIN ---
HPI - Chest Pain General Chief Complaint: Chest Pain Stated Complaint: CP until shocked by internal defibrill Time Seen by Provider: 07/06/20 08:01 Source: patient Mode of arrival: EMS Limitations: no limitations History of Present Illness HPI narrative: Patient 69-year-old male complaining of chest pain, left chest, 6 out of 10, tightness, accompanied by diaphoresis started this morning, upon EMS arrival his defibrillator fired which resolved the chest pain. Upon arrival to the emergency room he denies any chest pain, shortness of breath, nausea, or vomiting. Related Data Home Medications Medication Instructions Recorded Confirmed finasteride 5 mg tablet 5 mg PO DAILY 09/10/19 03/27/20 fenofibric acid (choline) 135 mg 135 mg PO DAILY 09/11/19 03/27/20 capsule,delayed release furosemide 40 mg tablet 40 mg PO BID 09/11/19 03/27/20 multivitamin 1 cap PO DAILY 09/11/19 03/27/20 omega3-dha 200 mg-epa 300 mg-othr 1 cap PO BID 09/11/19 03/27/20 om3 100 mg-fish oil 1,000 mg capsule Eliquis 5 mg PO BID 12/18/19 03/27/20 clopidogrel [Plavix] 75 mg PO DAILY #0 12/19/19 03/27/20 cyanocobalamin (vitamin B-12) 500 mcg PO DAILY 12/19/19 03/27/20 [Vitamin B-12] coenzyme Q10 [CoQ-10] 200 mg PO DAILY 12/21/19 03/27/20 blood sugar diagnostic #10 each 02/26/20 03/27/20 metformin 2,000 mg PO DAILY 03/27/20 03/27/20 tamsulosin [Flomax] 0.4 mg PO DAILY 03/27/20 03/27/20 Entresto 1 tablet PO BID 03/28/20 03/28/20 isosorbide dinitrate 30 mg tablet 30 mg PO ONCE tablet 05/07/20 rosuvastatin 5 mg tablet 5 mg PO DAILY 05/07/20 Allergies Allergy/AdvReac Type Severity Reaction Status Date / Time rivaroxaban [From Xarelto] Allergy Intermediate Hives Verified 07/06/20 07:57 Review of Systems Review of Systems: All systems reviewed & are unremarkable except as noted in HPI and below Constitutional: Constitutional: Denies body ache(s), Denies chills, Denies excessive sweating, Denies fatigue, Denies fever(s), Denies headache(s), Denies lethargy, Denies malaise, Denies weakness and Denies weight loss Eyes: Eyes: Denies blurry vision, Denies change in vision and Denies loss of vision ENT: Denies dizziness, Denies ear discharge, Denies headache(s), Denies lip swelling, Denies epistaxis, Denies nasal congestion, Denies neck pain, Denies throat swelling and Denies tongue swelling Cardiovascular: Cardiovascular: Denies diaphoresis, Denies rapid heart rate, Denies edema, Denies irregular heart rhythm, Denies lightheadedness, Denies palpitations, Denies dyspnea and Denies dyspnea on exertion Respiratory: Respiratory: Denies chest congestion, Denies cough, Denies hemoptysis, Denies dyspnea and Denies dyspnea on exertion Gastrointestinal: Gastrointestinal: Denies abdominal pain, Denies melena, Denies hematochezia, Denies diarrhea, Denies nausea, Denies vomiting and Denies hematemesis Musculoskeletal: Musculoskeletal: Denies abnormal gait, Denies deformity, Denies joint swelling, Denies limited range of motion, Denies neck pain and Denies numbness Neurologic: Denies Abnormal speech present, Denies abnormal gait, Denies confusion, Denies dizziness, Denies headache(s), Denies focal weakness, Denies loss of vision, Denies numbness, Denies Other visual disturbances, Denies Sensory deficit (Neuro) and Denies weakness Psychiatric: Psychiatric: Denies confusion, Denies depression, Denies auditory hallucinations, Denies homicidal ideation and Denies suicidal ideation Endocrine: Endocrine: Denies cold intolerance, Denies excessive sweating, Denies fatigue, Denies heat intolerance and Denies palpitations Hematologic/Lymphatic: Hematologic/Lymphatic: Denies easy bleeding and Denies easy bruising Allergic/Immunologic: Allergic/Immunologic: Denies lip swelling, Denies throat swelling and Denies tongue swelling PMFSH Past Medical History Medical History (Updated 07/06/20 @ 09:35 by Issa James MD) Atrial fibrillation Chronic respiratory failure with hypoxia
[2020-07-06 08:28] LABS: Basophils Percent Auto 0.2 % (0.2-1.2); Eosinophils Percent Auto 0.4 % (0-4.4); Hematocrit 34.3 % (42.0-52.0); Hemoglobin 11.2 g/dL (14.0-18.0); Immature Granulocyte Absolute 0.03 K/mm3 (0.00-0.031); Immature Granulocyte Percent A 0.6 % (0-0.5); Immature Platelet Fraction Pct 6.5 % (0.9-11.2); Lymphocytes Absolute Auto 1.18 K/mm3 (0.9-3.2); Lymphocytes Percent Auto 22.9 % (18.3-44.2); Mean Corpuscular HGB Conc 32.7 g/dl (32-36); Mean Corpuscular Hemoglobin 37.3 pg (26-34); Mean Corpuscular Volume 114.3 fl (80-100); Mean Platelet Volume 11.1 fl (7.4-10.4); Monocytes Absolute Auto 0.5 K/mm3 (0.1-0.6); Monocytes Percent Auto 8.7 % (2.6-8.5); Neutrophils Absolute Auto 3.5 K/mm3 (1.3-6.7); Neutrophils Percent Auto 67.2 % (45.5-73.1); Platelet Count Result 131 k/mm3 (150-375); Red Cell Distribution Width 14.4 % (11.5-14.5); White Blood Count 5.2 K/mm3 (4.5-10.0)
[2020-07-06 08:35] LABS: Prothrombin Time 14.2 Seconds (11.1-14.7)
[2020-07-06 08:36] LABS: Partial Thromboplastin Time 31.3 SECONDS (22.3-36.8)
[2020-07-06 08:38] LABS: Anion Gap 8 mmol/L (8-16); Blood Urea Nitrogen 26 mg/dL (9-20); Carbon Dioxide 28 mmol/L (22-30); Chloride 103 mmol/L (98-107); Estimated CRCL calculation 52 ml/min; Estimated Glomerular Filt Rate 53; Glucose 177 mg/dL (75-110); Potassium 4.3 mmol/L (3.4-5.0); Sodium 139 mmol/L (137-145)
[2020-07-06 08:53] LABS: Troponin I 0.038 ng/mL (0.000-0.034)
--- NOTE | 2020-07-06 09:50 | PC.NURSE ---
Pacemaker interrogated.
[2020-07-06 11:39] LABS: Troponin I 0.626 ng/mL (0.000-0.034)
--- NOTE | 2020-07-06 11:40 | ADMGEN ---
This patient, Freddy Mireles Jr., was admitted to IMU Room 203-01. Patient/family oriented to hospital policies and general routines including ID bracelet, bed and alarms, visiting hours, pain management, procedures, bathroom and other care routines, personal items, smoking policy, room service/diet, and visiting hours. Information on how to activate the Rapid Response Team has been discussed. Patient/Family are encouraged to report perceived risks to care and to ask questions if they do not understand what they are told or what they should do.
[2020-07-06 12:37] LABS: Glucose Point of Care 91 (65-105)
--- NOTE | 2020-07-06 13:02 | PM.CNCAR ---
Assessment and Plan Additional Plan 79-year-old man with longstanding ischemic heart disease he also has a history of problematic atrial arrhythmias and recent implantation of a cardiac resynchronization device /defibrillator. He presents to the emergency room today after being appropriately treated by his device for sustained monomorphic ventricular tachycardia at about 730 this morning. After the arrhythmia was terminated he quickly became asymptomatic. Since he has been admitted to the hospital after this event would like to resume antiarrhythmic therapy in the form of amiodarone and we will provide that intravenously at least for 24 hours and then resume an oral loading regimen after that. The remainder of his medical regimen as detailed in the home meds should be continued. Tony Miller MD [facility] History of Present Illness History of Present Illness Consult date/time: 07/06/20 13:02 Reason For Visit: chest pain Narrative: This is a very pleasant 79-year-old man who is well known to me with a history of coronary artery disease with previous percutaneous revascularization as well as a history of atrial fibrillation that has been treated both medically and with ablation of his AV node and recent implantation of a cardiac resynchronization device by the electrophysiology service at [facility]. The patient has a history of coronary disease dating back many years to a percutaneous revascularization with stenting of his right coronary artery. 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 He ought then presented with ischemic symptoms in August of 1999 at which time he underwent PCI of the LAD. He did very well until couple of years ago in 2018 when he had a series of hospitalizations here with abrupt pulmonary edema. Subsequent catheterization demonstrated multivessel coronary disease with high-grade lesions in the proximal LAD and right coronary arteries. I believe he also had some left main disease. He was referred to [facility] for surgical revascularization but underwent percutaneous revascularization with stenting of the left main and proximal LAD by the Interventional consult and over there. The patient after that did reasonably well for a period of time. He did develop intermittent atrial fibrillation which was treated with a cardioversion and sotalol. His atrial fibrillation would be very poorly tolerated hemodynamically when he went into it. He failed sotalol treatment and was sent to EP consultation for ablation. I believe he had a couple of ablation procedures also including ablation of his AV node implantation of a pacemaker device. He most recently was referred there in the summer of 2019 with some congestive heart failure he had a new moderate but flow-limiting lesion in the mid LAD that was stented at that time and that he under all went upgrade of his device to a cardiac resynchronization device. I saw him in the office last after all this in April of this year which time he reported feeling well and looked quite well. He had been taking amiodarone treatment prior to his device implantation this was stopped I believe by the EP clothing consultant at [facility]. Today he presented to the emergency room after being shocked by his device at home. He was feeling well this morning and noted the abrupt onset of symptoms of some shortness of breath and diaphoresis that was associated also sense of some mild central chest pain. His checked his pulse oximetry and he was oxygenating well but noticed his heart rate was 140. He then directed her to call 911. While they were waiting for EMS to arrive he received a shock from his device after which she rapidly became asymptomatic. His heart rate was then 80 beats per minute any felt well. His device was interrogated and does demonstrate ventricular tachycardia that was appropriately treated with counter shocki
[2020-07-06] MEDS: AMIODARONE 150 MG/D5W 100 ML 150 MG/100 ML BAG 600 MG IV CONT (13:53)
[2020-07-06] MEDS: AMIODARONE 360 MG/D5W 200 ML 360 MG/200 ML BAG 33.33 MG IV CONT (14:20)
--- NOTE | 2020-07-06 16:21 | PM.IMHP ---
H&P: HPI History of Present Illness Date/Time: 07/06/20 16:22 Chief complaint: chest pain Narrative: Freddy Mireles Jr. is a 79 year old male who came to the emergency room complaining of chest pain that was left-sided 6/10 some tightness he was diaphoretic this morning. The patient stated that his defibrillator went off twice he felt shock him. And then the diaphoresis disappeared. He had no shortness of breath no nausea vomiting no fever no chills. Initially this year the patient had a pacemaker for bradycardia and then the patient went into an at [facility] and had an AICD placed. The patient stated today was the 1st time that it had gone off. Patient has a history of coronary artery disease with 2-3 stents. The patient had sustained monomorphic ventricular tachycardia about 730 this morning and then the patient stated he got shocked again in the ambulance. Cardiology has seen the patient and decided to do a loading dose of amiodarone and then a drip. The patient will be on this for approximately 24 hours and then started on oral medication. The remainder of his medical regimen should be continued as per Cardiology. Patient sees Dr. 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 The patient is not having any complaints at this time. 0.626, 1.020, and 1.240. Patient's Accu-Chek was 177 patient is being admitted in to observation status on date of service 07/06/2020 Review of Systems Review of Systems: All systems reviewed & are unremarkable except as noted in HPI and below Constitutional: Constitutional: Reports as per HPI and Reports no additional constitutional complaints Eyes: Eyes: Reports as per HPI and Reports no additional eye complaints ENT: Reports system reviewed and no additional complaints, except as documented and Reports Normal hearing present Cardiovascular: Cardiovascular: Reports no additional cardiovascular complaints Respiratory: Respiratory: Reports no additional respiratory complaints and Reports no additional respiratory complaints Gastrointestinal: Gastrointestinal: Reports as per HPI and Reports no additional gastrointestinal complaints Musculoskeletal: Musculoskeletal: Reports no additional musculoskeletal complaints Integumentary/Breasts: Skin/Breast: Reports system reviewed and no additional complaints, except as docu and Reports as per HPI Neurologic: Reports system reviewed and no additional complaints, except as documented, Reports as per HPI and Reports Normal hearing present Psychiatric: Psychiatric: Reports no additional psychiatric complaints and Reports as per HPI Endocrine: Endocrine: Reports no additional endocrine complaints Hematologic/Lymphatic: Hematologic/Lymphatic: Reports no additional hematologic/lymphatic complaints Allergic/Immunologic: Allergic/Immunologic: Reports no additional allergic/immunologic complaints [facility] Past Medical History Medical History (Updated 07/06/20 @ 16:41 by Aurora Cornejo NP) Atrial fibrillation BPH (benign prostatic hyperplasia) Chronic respiratory failure with hypoxia and hypercapnia Coronary artery disease Diabetes mellitus Diastolic heart failure H/O: HTN (hypertension) HTN (hypertension), malignant Hyperlipidemia Surgical History Surgical History (Updated 07/06/20 @ 16:31 by Aurora Cornejo NP) History of angioplasty History of coronary artery stent placement 2-3 History of lumbar laminectomy Family History Family History Sibling Diabetes mellitus Mother Family history of Alzheimer's disease, Onset Age: 76 Family history of Parkinson's disease Father Hypertension Chronic obstructive pulmonary disease Family history of coronary artery disease Social History Social History (Updated 07/06/20 @ 16:36 by Aurora Cornejo NP) Social History: The patient is and his is a durable power atto
[2020-07-06 17:25] LABS: Glucose Point of Care 106 (65-105)
[2020-07-06 20:43] LABS: Glucose Point of Care 148 (65-105)
[2020-07-06] MEDS: AMIODARONE 360 MG/D5W 200 ML 360 MG/200 ML BAG 16.67 MG IV CONT (21:06)
[2020-07-06] MEDS: PREGABALIN (*CRX) 50 MG CAPSULE 100 MG PO (21:07)
[2020-07-06] MEDS: APIXABAN 5 MG TABLET PO (21:07)
[2020-07-06] MEDS: AMITRIPTYLINE HCL 10 MG TABLET PO (21:07)
[2020-07-06] MEDS: SACUBITRIL/VALSARTAN 12-13 MG TABLET 1 TAB PO (21:12)
[2020-07-07] VITALS (10 sets, daily range): BP systolic 97–126; BP diastolic 55–82; PULSE 80–84; RESP 18–20; TEMP 35.6–36.2; O2SAT 96–100
[2020-07-07] MEDS: PREGABALIN (*CRX) 50 MG CAPSULE 100 MG PO (05:31)
[2020-07-07 05:41] LABS: Alanine Aminotransferase 17 U/L (4-50); Albumin Level 3.3 g/dL (3.5-5.1); Alkaline Phosphatase 41 U/L (38-126); Anion Gap 1 mmol/L (8-16); Aspartate Amino Transferase 31 U/L (17-59); Bilirubin,Total 0.3 mg/dL (0.2-1.3); Blood Urea Nitrogen 19 mg/dL (9-20); Calcium 8.7 mg/dL (8.4-10.2); Carbon Dioxide 34 mmol/L (22-30); Chloride 103 mmol/L (98-107); Estimated CRCL calculation 68 ml/min; Estimated Glomerular Filt Rate > 60; Glucose 107 mg/dL (75-110); Lipase 35 U/L (23-300); Magnesium 2.4 mg/dL (1.6-2.3); Phosphorus 3.1 mg/dL (2.5-4.5); Sodium 138 mmol/L (137-145)
[2020-07-07 07:54] LABS: Glucose Point of Care 123 (65-105)
[2020-07-07] MEDS: APIXABAN 5 MG TABLET PO (08:11)
[2020-07-07] MEDS: CYANOCOBALAMIN 500 MCG TABLET PO (08:11)
[2020-07-07] MEDS: CLOPIDOGREL BISULFATE 75 MG TABLET PO (08:12)
[2020-07-07] MEDS: FUROSEMIDE 40 MG TABLET PO (08:12)
[2020-07-07] MEDS: FINASTERIDE 5 MG TABLET PO (08:12)
[2020-07-07] MEDS: MULTIVITAMINS THERAPEUTIC TAB (*BKC) 1 TABLET PO (08:13)
[2020-07-07] MEDS: ROSUVASTATIN 5 MG TABLET PO (08:13)
[2020-07-07] MEDS: CHOLECALCIFEROL 1,000 UNITS TABLET 2000 UNITS PO (08:13)
[2020-07-07] MEDS: TAMSULOSIN HCL 0.4 MG CAPSULE PO (08:13)
[2020-07-07] MEDS: AMIODARONE 360 MG/D5W 200 ML 360 MG/200 ML BAG 16.67 MG IV CONT (08:37)
[2020-07-07] MEDS: SACUBITRIL/VALSARTAN 12-13 MG TABLET 1 TAB PO (08:39)
[2020-07-07] MEDS: FLUTICASONE/UMECLIDIN/VILANTER 100-62.5-25 MCG ELLIPTA 1 PUFF INHALATION (09:01)
--- NOTE | 2020-07-07 10:29 | PM.PNCARD ---
Progress Note: A&P Additional Plan 79-year-old man with: Ischemic heart disease, ischemic cardiomyopathy and implanted byBIVICD device. The patient had an appropriate therapy for monomorphic VT yesterday morning and is now stable. He has been receiving intravenous amiodarone for the last 24 hours has had no further arrhythmias. Today I am going to stop the IV amiodarone and started on oral loading dose of 800 mg per day. In 2 weeks we will reduce this to 400 mg per day and then consider further reduction as an outpatient. The patient's well cleaner in [facility] recommends changing the heart rate for ventricular therapies to 140 beats per minute and we will have the device rep come in today and make those changes. This will result in BT being treated sooner if he has recurrences of this. Told the patient that as he is resuming amiodarone he may have some breakthrough arrhythmias in the next 1 month or 2 that may result in additional therapies. If this were is to occur he does not have to be rehospitalized each time and this was pointed out to the patient today. Hopefully I will be able to see him in the office and his arrhythmias will become quiescent. Remainder of his heart failure regimen should be continued without change. After the ICD reprogramming takes place I would hope he can be discharged later in the day. Tony Miller MD [facility] Subjective Date/time seen: Date of service: 07/07/20 10:29 Interval history: Follow-up visit in this 79-year-old man with: Ischemic heart disease with ischemic cardiomyopathy patient with the above described history of both atrial fib and ventricular arrhythmias. Admitted after receiving an appropriate counter shock from his ICD yesterday morning terminating monomorphic VT. Amiodarone which had been discontinued at the time of his device implant has been resumed he is receiving intravenously since yesterday. He is asymptomatic this morning and offers no cardiovascular complaints. Exam Const: General: comfortable and no acute distress HENMT: Mouth: Yes moist mucous membranes Eyes: Sclera: sclerae normal Pupils: Equal, round and reactive pupils present Neck: Neck: supple and no JVD Thyroid: thyroid normal Resp: Auscultation: clear to auscultation bilaterally Cardio: Rate: regular rate Rhythm: regular rhythm Other: PMI is enlarged and displaced no audible cardiac murmur GI: GI Palp: Yes Soft to palpation Auscultation: normal bowel sounds Skin: General skin exam: normal color Neuro: Cognition (Neuro): normal cognition Extrem: General: normal to inspection Objective Data Vital Signs Vital Signs: Vital Signs - 24 hr 07/06/20 11:19 07/06/20 12:00 07/06/20 13:53 Temperature 36.2 C L Pulse Rate 80 80 80 Respiratory Rate 16 16 Blood Pressure 106/74 102/50 L 116/58 L Pulse Oximetry 100 98 07/06/20 14:00 07/06/20 14:20 07/06/20 16:00 Temperature 36.6 C Pulse Rate 83 82 81 Respiratory Rate 18 Blood Pressure 106/51 L 102/45 L Pulse Oximetry 95 07/06/20 18:00 07/06/20 20:00 07/06/20 21:06 Temperature 36.1 C L Pulse Rate 80 81 82 Respiratory Rate 16 Blood Pressure 109/55 L Pulse Oximetry 93 07/06/20 21:35 07/06/20 22:00 07/06/20 23:34 Temperature 36.2 C L Pulse Rate 82 80 79 Respiratory Rate 18 Blood Pressure 110/58 L Pulse Oximetry 95 97 07/07/20 00:00 07/07/20 02:00 07/07/20 04:00 Temperature Pulse Rate 81 80 82 Respiratory Rate 18 18 Blood Pressure Pulse Oximetry 96 97 07/07/20 04:17 07/07/20 06:00 07/07/20 08:00 Temperature 35.6 C L 35.6 C L Pulse Rate 84 80 80 Respiratory Rate 20 18 Blood Pressure 97/82 L 126/62 Pulse Oximetry 99 100 07/07/20 08:37 07/07/20 10:00 Temperature Pulse Rate 80 82 Respiratory Rate Blood Pressure Pulse Oximetry Intake/Output Intake/Output: Intake & Output 07/04/20 07/05/20 07/06/20 07/07/20 23:59 23:59 23:59 23:59 Intake Total
[2020-07-07] MEDS: AMIODARONE HCL 200 MG TABLET 400 MG PO (11:22)
[2020-07-07] MEDS: FENOFIBRATE NANOCRYSTALLIZED 145 MG TABLET PO (11:23)
--- NOTE | 2020-07-07 12:19 | PM.DS ---
DS: Admitting Diagnosis Admitting Diagnosis Admitting Diagnosis: chest pain DS: Discharge Diagnosis Discharge Diagnosis (1) Wide-complex tachycardia: Code(s): I47.2 - Ventricular tachycardia Status: Acute Assessment and Plan: Patient presented to the ED with complaints of chest pain. His defibrillator went off twice. The patient had sustained monomorphic ventricular tachycardia and he got shocked again in the ambulance. Cardiology was consulted and Amiodarone started. The patient does have an elevated troponin most likely due to the shocks that patient had received earlier today. The last 2 troponins were flat. Cardiology felt pateitn okay for discharge on Amiodarone. Case was discussed with with EP physician (2) Essential hypertension: Code(s): I10 - Essential (primary) hypertension Status: Acute Assessment and Plan: BP low at times but overall remained stable. (3) Coronary artery disease: Code(s): I25.10 - Atherosclerotic heart disease of [place] coronary artery without angina pectoris Status: Acute Assessment and Plan: The patient is on Plavix and Eliquis. (4) Diastolic heart failure: Code(s): I50.30 - Unspecified diastolic (congestive) heart failure Status: Chronic Assessment and Plan: CXR on admission reviewed and not consistent with CHF exacerbation. Patient is on Entresto and Lasix which were continued (5) NICOLE (obstructive sleep apnea): Code(s): G47.33 - Obstructive sleep apnea (adult) (pediatric) Status: Chronic Assessment and Plan: We continued CPAP machine per home setting (6) COPD (chronic obstructive pulmonary disease): Qualifiers: COPD type: unspecified COPD Qualified Code(s): J44.9 - Chronic obstructive pulmonary disease, unspecified Code(s): J44.9 - Chronic obstructive pulmonary disease, unspecified Status: Chronic Assessment and Plan: We continued with inhalers and with Daliresp. (7) Diabetes mellitus: Qualifiers: Diabetes mellitus type: type 2 Diabetes mellitus salvage determiner insulin use: without salvage determiner use Diabetes mellitus complication status: without complication Qualified Code(s): E11.9 - Type 2 diabetes mellitus without complications Code(s): E11.9 - Type 2 diabetes mellitus without complications Status: Chronic Assessment and Plan: The patient's blood glucose was monitored closely. Glucose remained well controlled. Continue AccuCheks covering with sliding scale. Hypoglycemia protocol was available as needed. (8) Chronic hypoxemic respiratory failure: Code(s): J96.11 - Chronic respiratory failure with hypoxia Status: Acute Assessment and Plan: Remained stable on his home O2 3 L. (9) Atrial fibrillation: Qualifiers: Atrial fibrillation type: unspecified Qualified Code(s): I48.91 - Unspecified atrial fibrillation Code(s): I48.91 - Unspecified atrial fibrillation Status: Chronic Assessment and Plan: Stable HR. As above. DS: Summary Hospital Course Reason for hospitalization: 79yo male here for chest pain and after AICD firing x2. Please see H&P for details. Hospital Course: Please see above for details on hospital course. Status at Discharge Cognitive/behavioral status at discharge: PATIENT IS STABLE FOR DISCHARGE Time Spent with Patient Time attestation: Total time spent providing and/or coordinating discharge services:38 minutes Time spent: Greater than 30 minutes Exam Narrative: Exam Narrative: AF 96.1 126/62 80 18 100% 3L Gen - NARD sitting up in bed Chest - CTA bilaterally, nml RR CV - RRR S1/S2; tele showing passed rhythm Abd - Soft, NT/ND, Positive BS Ext - No pedal edema Psych - Nml mood and affect Skin - Warm and dry DS: Data Data Completed and Pending Labs on day of discharge: Labs from last 24 hours 12
[2020-07-07 12:59] LABS: Glucose Point of Care 167 (65-105)
== END 2020-07-07 13:56 | disposition home or self-care (01) | DRG 309 ==
LOC: ANHED 09:35 → ANHIMU 11:00
PROVIDERS: Nurse Practitioner; Admitting Provider Family Medicine; Emergency Provider Emergency Medicine; PCP Family Medicine; Visit Provider Internal Medicine
DX: I47.2 Ventricular tachycardia (principal); I50.32 Chronic diastolic (congestive) heart failure; J96.11 Chronic respiratory failure with hypoxia; J96.12 Chronic respiratory failure with hypercapnia; I48.20 Chronic atrial fibrillation, unspecified; I25.10 Atherosclerotic heart disease of native coronary artery without angina pectoris; G47.33 Obstructive sleep apnea (adult) (pediatric); J44.9 Chronic obstructive pulmonary disease, unspecified; I11.0 Hypertensive heart disease with heart failure; E11.9 Type 2 diabetes mellitus without complications; I25.5 Ischemic cardiomyopathy; E78.5 Hyperlipidemia, unspecified; N40.0 Benign prostatic hyperplasia without lower urinary tract symptoms; Z95.810 Presence of automatic (implantable) cardiac defibrillator; Z99.81 Dependence on supplemental oxygen; Z87.891 Personal history of nicotine dependence; Z95.5 Presence of coronary angioplasty implant and graft; Z79.01 Long term (current) use of anticoagulants; Z79.02 Long term (current) use of antithrombotics/antiplatelets
CPT/HCPCS: 36415; 71046; 80048; 80053; 82728; 83690; 83735; 84100; 84443; 84484; 85025; 85055; 85610; 85730; 93005; 96365; 96366; 99285; A9270; G0378; J0282

== ENCOUNTER 2020-07-21 00:45 | Emergency (ER) | payer MEDICARE, SELFPAY ==
--- NOTE | ~2020-07-21 | XR_ITS ---
EXAMINATION: XR chest 2V DATE: 07/21/2020 01:30 INDICATION: Defibrillator discharge TECHNIQUE: AP and lateral views of the chest are obtained. COMPARISON: 07/16/2020 FINDINGS: There are persistent but improving opacities of the left mid and lower lung zones. There is no pleural effusion or pneumothorax. The cardiomediastinal silhouette is normal. There is moderate t horacic spondylosis. A triple lead cardiac pacemaker of the left chest wall ends with leads in expect ed locations. IMPRESSION: 1. Persistent but improving airspace opacities of the left mid and lower lung zone, likely resolving pneumonia. Reviewed, dictated and finalized at location A. AND BURR OPERATOR IMPRESSION: 1. Persistent but improving airspace opacities of the left mid and lower lung z one, likely resolving pneumonia.
[2020-07-21 00:44] VITALS: BP 128/70; PULSE 66; RESP 18; TEMP 36.7; O2SAT 95
--- NOTE | 2020-07-21 00:45 | ED.CHESTPAIN ---
HPI - Chest Pain General Chief Complaint: Chest Pain Stated Complaint: defib Source: patient and EMS Mode of arrival: EMS Limitations: no limitations History of Present Illness HPI narrative: The patient is an 79-year-old male with a history of coronary artery disease, longstanding ischemic cardiac disease, ventricular tachycardia, status post defibrillator placement, multiple ablations and now taking amiodarone, who presents for evaluation of defibrillator firing at home this evening. It awakened the patient from sleep. Patient denies any current pain or recurrent defibrillator shocks. He follows with Dr. Miller and Dr. Mahan, who is an plant chief at [facility]. He denies any medication changes and the patient states he has been compliant with his amiodarone. Patient states he was seen by Dr. Miller at appointment today who knows about the recurrent defibrillation and states that he would probably best be served by following up with his plant chief at this point. Patient states there was some discussion whether or not he needed to undergo another cardiac catheterization. Related Data Home Medications Medication Instructions Recorded Confirmed finasteride 5 mg tablet 5 mg PO DAILY 09/10/19 07/06/20 fenofibric acid (choline) 135 mg 135 mg PO DAILY 09/11/19 07/06/20 capsule,delayed release furosemide 40 mg tablet 40 mg PO BID 09/11/19 07/06/20 multivitamin 1 cap PO DAILY 09/11/19 07/06/20 omega3-dha 200 mg-epa 300 mg-othr 2 cap PO HS 09/11/19 07/06/20 om3 100 mg-fish oil 1,000 mg capsule Eliquis 5 mg PO BID 12/18/19 07/06/20 clopidogrel [Plavix] 75 mg PO DAILY #0 12/19/19 07/06/20 cyanocobalamin (vitamin B-12) 500 mcg PO DAILY 12/19/19 07/06/20 [Vitamin B-12] coenzyme Q10 [CoQ-10] 200 mg PO DAILY 12/21/19 07/06/20 blood sugar diagnostic #10 each 02/26/20 07/06/20 metformin 2,000 mg PO HS 03/27/20 07/06/20 Entresto 0.5 tablet PO BID 03/28/20 07/06/20 rosuvastatin 5 mg tablet 5 mg PO DAILY 05/07/20 07/06/20 amitriptyline 10 mg PO HS 07/06/20 07/06/20 Allergies Allergy/AdvReac Type Severity Reaction Status Date / Time rivaroxaban [From Xarelto] Allergy Intermediate Hives Verified 07/06/20 07:57 Review of Systems Review of Systems: Narrative: CONSTITUTIONAL: Denies fever, chills, or sweats. EYES: Denies visual changes, redness, or discharge. ENT: Denies rhinorrhea, congestion, sore throat, or otalgia. CARDIOVASCULAR: Denies chest pain, palpitations, or edema. RESPIRATORY: Denies cough or dyspnea. GASTROINTESTINAL: Denies abdominal pain, nausea, vomiting, or diarrhea. GENITOURINARY: Denies dysuria or hematuria. SKIN: Denies rash or itching. MUSCULOSKELETAL: Denies back pain, joint pain, or myalgia. NEUROLOGIC: Denies headache, numbness, or weakness. PSYCHIATRIC: Denies anxiety or depression. [facility] Past Medical History Medical History Atrial fibrillation BPH (benign prostatic hyperplasia) Chronic respiratory failure with hypoxia and hypercapnia Coronary artery disease Diabetes mellitus Diastolic heart failure H/O: HTN (hypertension) HTN (hypertension), malignant Hyperlipidemia Surgical History Surgical History History of angioplasty History of coronary artery stent placement 2-3 History of lumbar laminectomy Family History Family History Sibling Diabetes mellitus Mother Family history of Alzheimer's disease, Onset Age: 76 Family history of Parkinson's disease Father Hypertension Chronic obstructive pulmonary disease Family history of coronary artery disease Social History Social History Social History: The patient is and his is a durable power deputy county attorney for healthcare. The patient is a full code. Patient had
--- NOTE | 2020-07-21 00:48 | ECG_ITS ---
Measurements Intervals [place] Rate: 86 P: -41 WA: 166 QRS: 194 QRSD: 162 T: 18 QT: 428 QTc: 515 Interpretive Statements ELECTRONIC ATRIAL PACEMAKER ELECTRONIC VENTRICULAR PACEMAKER NO FURTHER INTERPRETATION IS POSSIBLE ATYPICAL ECG Electronically Signed On 07-26-2020 16:08:09 CHIEF SUBSTATION OPERATOR by Sanya Stewart D.O.
[2020-07-21 02:03] LABS: Basophils Percent Auto 0.3 % (0.2-1.2); Eosinophils Percent Auto 1.1 % (0-4.4); Hematocrit 32.3 % (42.0-52.0); Hemoglobin 10.5 g/dL (14.0-18.0); Immature Granulocyte Absolute 0.02 K/mm3 (0.00-0.031); Immature Granulocyte Percent A 0.5 % (0-0.5); Immature Platelet Fraction Pct 6.5 % (0.9-11.2); Lymphocytes Absolute Auto 1.21 K/mm3 (0.9-3.2); Lymphocytes Percent Auto 32.5 % (18.3-44.2); Mean Corpuscular HGB Conc 32.5 g/dl (32-36); Mean Corpuscular Hemoglobin 36.5 pg (26-34); Mean Corpuscular Volume 112.2 fl (80-100); Mean Platelet Volume 10.9 fl (7.4-10.4); Monocytes Absolute Auto 0.6 K/mm3 (0.1-0.6); Monocytes Percent Auto 14.8 % (2.6-8.5); Neutrophils Absolute Auto 1.9 K/mm3 (1.3-6.7); Neutrophils Percent Auto 50.8 % (45.5-73.1); Platelet Count Result 134 k/mm3 (150-375); Red Blood Count 2.88 M/mm3 (4.6-6.20); Red Cell Distribution Width 14.3 % (11.5-14.5); White Blood Count 3.7 K/mm3 (4.5-10.0)
[2020-07-21 02:11] LABS: INR 1.3; Prothrombin Time 16.5 Seconds (11.1-14.7)
[2020-07-21 02:12] LABS: Partial Thromboplastin Time 35.2 SECONDS (22.3-36.8)
[2020-07-21 02:13] LABS: Anion Gap 4 mmol/L (8-16); Blood Urea Nitrogen 34 mg/dL (9-20); Calcium 8.7 mg/dL (8.4-10.2); Carbon Dioxide 33 mmol/L (22-30); Chloride 99 mmol/L (98-107); Estimated CRCL calculation 52 ml/min; Estimated Glomerular Filt Rate 53; Glucose 117 mg/dL (75-110); Potassium 4.3 mmol/L (3.4-5.0); Sodium 136 mmol/L (137-145)
[2020-07-21 02:26] LABS: Troponin I < 0.012 ng/mL (0.000-0.034)
[2020-07-21 02:38] VITALS: BP 122/62; PULSE 87; RESP 16; O2SAT 100
--- NOTE | 2020-07-21 03:17 | PC.NURSE ---
Pts defibrillator interrogated and report requested from [employer].
[2020-07-21 04:10] VITALS: BP 119/64; PULSE 80; RESP 15; O2SAT 99
[2020-07-21] MEDS: AMIODARONE 150 MG/D5W 100 ML 150 MG/100 ML BAG 600 MG IV CONT (04:10)
[2020-07-21 04:42] LABS: Troponin I < 0.012 ng/mL (0.000-0.034)
[2020-07-21 05:28] VITALS: BP 101/50; PULSE 80; RESP 14; O2SAT 100
[2020-07-21 05:38] VITALS: BP 116/66; PULSE 80
[2020-07-21] MEDS: AMIODARONE 360 MG/D5W 200 ML 360 MG/200 ML BAG 33.33 MG IV CONT (05:38)
--- NOTE | 2020-07-21 06:05 | PC.NURSE ---
called [facility] to request transport. ETA [phone]
[2020-07-21 06:46] VITALS: BP 127/72; PULSE 86; RESP 16; O2SAT 100
== END 2020-07-21 06:48 | disposition short-term general hospital (02) ==
PROVIDERS: Emergency Provider Emergency Medicine; PCP Family Medicine
DX: I47.2 Ventricular tachycardia (principal); I25.10 Atherosclerotic heart disease of native coronary artery without angina pectoris; I25.9 Chronic ischemic heart disease, unspecified; I48.91 Unspecified atrial fibrillation; J96.11 Chronic respiratory failure with hypoxia; J96.12 Chronic respiratory failure with hypercapnia; E11.9 Type 2 diabetes mellitus without complications; I50.30 Unspecified diastolic (congestive) heart failure; I11.0 Hypertensive heart disease with heart failure; N40.0 Benign prostatic hyperplasia without lower urinary tract symptoms; Z95.5 Presence of coronary angioplasty implant and graft; Z79.02 Long term (current) use of antithrombotics/antiplatelets; Z79.84 Long term (current) use of oral hypoglycemic drugs; Z79.01 Long term (current) use of anticoagulants; Z87.891 Personal history of nicotine dependence; R91.8 Other nonspecific abnormal finding of lung field; Z95.810 Presence of automatic (implantable) cardiac defibrillator
CPT/HCPCS: 36415; 71046; 80048; 84484; 85025; 85055; 85610; 85730; 93005; 96365; 96376; 99285; J0282

== ENCOUNTER 2020-09-12 20:44 | Inpatient (IN) | payer MEDICARE, SELFPAY ==
[2020-09-12] VITALS (13 sets, daily range): BP systolic 94–137; BP diastolic 57–86; PULSE 89–98; RESP 14–27; TEMP 35.8; O2SAT 86–99
--- NOTE | ~2020-09-12 | XR_ITS ---
EXAMINATION: XR chest 1V portable DATE: 09/12/2020 20:56 INDICATION: COPD and hypertension presenting with shortness of breath TECHNIQUE: frontal view of the chest was obtained. COMPARISON: Chest radiograph dated 07/21/20 FINDINGS: Bilateral diffuse increased indistinct interstitial pattern and groundglass opacities with perihilar predominance most likely moderate congestive heart failure related pulmonary edema. No pneumothorax o r definitive pleural effusion. Cardiomegaly. Three lead pacemaker/AICD seen with leads projecting ove r the expected locations of the right atrial appendage, apex of the right ventricle and overlying the left ventricle likely having traversed the coronary sinus. IMPRESSION: 1. Bilateral perihilar predominant diffuse lung disease most likely congestive heart failure related moderate pulmonary edema. Differential includes less likely pneumonia. 2. Cardiomegaly. Reviewed, dictated and finalized at location A. 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 Bilateral perihilar predominant diffuse lung disease most likely congestive heart failure related moderate pulmonary edema. Differential includes less like ly pneumonia. 2. Cardiomegaly.
--- NOTE | 2020-09-12 20:46 | ECG_ITS ---
Measurements Intervals [place] Rate: 89 P: -1 ID: [id number] QRS: 172 QRSD: 184 T: -14 QT: 431 QTc: 526 Interpretive Statements ELECTRONIC ATRIAL PACEMAKER ELECTRONIC VENTRICULAR PACEMAKER BASELINE ARTIFACT- I, II, AVR NO FURTHER INTERPRETATION IS POSSIBLE ATYPICAL ECG Electronically Signed On 09-13-2020 7:04:52 SHAMPOO PERSON by Sanya Stewart D.O.
--- NOTE | 2020-09-12 20:55 | ED.SOB ---
HPI - SOB/Dyspnea General Chief Complaint: Shortness of Breath/Dyspnea Stated Complaint: SOB Time Seen by Provider: 09/12/20 20:46 Source: patient and EMS Mode of arrival: EMS Limitations: no limitations History of Present Illness HPI Narrative: Patient is 79 years old white male brought to the emergency room by ambulance from home complaining of gradual increased shortness of breath over the last 3 hours prior to arrival. Patient usually on nasal cannula, 3 L, saturation was 86% when the ambulance arrived at home. Patient denies any fever, chills, nausea, vomiting, chest pain. History of congestive heart failure, COPD, hyperlipidemia, hypertension, diabetes. Patient on Eliquis and Plavix. Patient is full code. Related Data Home Medications Medication Instructions Recorded Confirmed finasteride 5 mg tablet 5 mg PO DAILY 09/10/19 07/06/20 fenofibric acid (choline) 135 mg 135 mg PO DAILY 09/11/19 07/06/20 capsule,delayed release furosemide 40 mg tablet 40 mg PO BID 09/11/19 07/06/20 multivitamin 1 cap PO DAILY 09/11/19 07/06/20 omega3-dha 200 mg-epa 300 mg-othr 2 cap PO HS 09/11/19 07/06/20 om3 100 mg-fish oil 1,000 mg capsule Eliquis 5 mg PO BID 12/18/19 07/06/20 clopidogrel [Plavix] 75 mg PO DAILY #0 12/19/19 07/06/20 cyanocobalamin (vitamin B-12) 500 mcg PO DAILY 12/19/19 07/06/20 [Vitamin B-12] coenzyme Q10 [CoQ-10] 200 mg PO DAILY 12/21/19 07/06/20 blood sugar diagnostic #10 each 02/26/20 07/06/20 metformin 2,000 mg PO HS 03/27/20 07/06/20 Entresto 0.5 tablet PO BID 03/28/20 07/06/20 rosuvastatin 5 mg tablet 5 mg PO DAILY 05/07/20 07/06/20 amitriptyline 10 mg PO HS 07/06/20 07/06/20 Allergies Allergy/AdvReac Type Severity Reaction Status Date / Time rivaroxaban [From Xarelto] Allergy Intermediate Hives Verified 07/06/20 07:57 Review of Systems Review of Systems: Narrative: CONSTITUTIONAL: Denies fever, chills, or sweats. EYES: Denies visual changes, redness, or discharge. ENT: Denies rhinorrhea, congestion, sore throat, or otalgia. CARDIOVASCULAR: Denies chest pain, palpitations, or edema. RESPIRATORY: Denies cough or dyspnea. GASTROINTESTINAL: Denies abdominal pain, nausea, vomiting, or diarrhea. GENITOURINARY: Denies dysuria or hematuria. SKIN: Denies rash or itching. MUSCULOSKELETAL: Denies back pain, joint pain, or myalgia. NEUROLOGIC: Denies headache, numbness, or weakness. PSYCHIATRIC: Denies anxiety or depression. [facility] Past Medical History Medical History Atrial fibrillation BPH (benign prostatic hyperplasia) Chronic respiratory failure with hypoxia and hypercapnia Coronary artery disease Diabetes mellitus Diastolic heart failure H/O: HTN (hypertension) HTN (hypertension), malignant Hyperlipidemia Surgical History Surgical History History of angioplasty History of coronary artery stent placement 2-3 History of lumbar laminectomy Family History Family History Sibling Diabetes mellitus Mother Family history of Alzheimer's disease, Onset Age: 76 Family history of Parkinson's disease Father Hypertension Chronic obstructive pulmonary disease Family history of coronary artery disease Social History Social History Social History: The patient is and his is a durable power [place] attorney for healthcare. The patient is a full code. Patient had 3 children and 1 daughter in a car accident. Patient used to smoke 2 packs of cigarettes a day for 25 years and he quit in 1987. He does not use any alcohol marijuana or substances. Smoking packs per day: 2 Smoking cigarettes per day: 40.0 Years smoked: 25 Smoking pack-years: 50.00 Smoking status: Former smoker Tobacco type: cigarettes Second hand tobacco smoke exposure: Yes Smoking end d
[2020-09-12 21:10] LABS: Alveolar/Arterial O2 Gradient 340.7 mmHg; Base Excess ABG -0.3 mEq/l (+/-2.0); Fractional Inspired Oxygen 70 %; HCO3 ABG 26.6 mEq/l (22.0-26.0); Oxygen Content ABG 13.8 %vol (16.0-22.0); Oxygen Saturation ABG 96.8 % (95.0-100.0); Oxyhemoglobin 94.9 % THb (90.0-100.0); PCO2 ABG 55.1 mmHg (35.0-45.0); PO2 ABG 99.2 mmHg (80.0-100.0); PO2 FiO2 Ratio Arterial Blood 1.42 %; Total Hemoglobin 10.2 g/dL (12.0-18.0); pH ABG 7.302 (7.350-7.450)
[2020-09-12] MEDS: NITROGLYCERIN OINTMENT 1 INCH DOSE TRANSDERM (21:10)
[2020-09-12] MEDS: FUROSEMIDE INJ 40 MG/4 ML VIAL 60 MG IV PUSH (21:10)
[2020-09-12 21:12] LABS: Device NON-INVASIVE VENT; Modified Allen's Test Pass; Non-Invasive Expiratory Pressure 7 CMH2O; Non-Invasive Inspiratory Pressure 14 CMH2O; Non-Invasive Vent Rate 4 /MIN; Site Drawn RIGHT RADIAL
[2020-09-12] MEDS: ALBUTEROL SULFATE NEB 2.5 MG/0.5 ML INH 5 MG INHALATION (21:18)
[2020-09-12] MEDS: IPRATROPIUM BR 0.02% INH SOLN 0.5 MG/2.5 ML VIAL INHALATION (21:20)
[2020-09-12 21:23] LABS: Basophils Percent Auto 0.1 % (0.2-1.2); Eosinophils Absolute Auto 0.1 K/mm3 (0-0.3); Eosinophils Percent Auto 1.2 % (0-4.4); Hematocrit 31.4 % (42.0-52.0); Hemoglobin 9.9 g/dL (14.0-18.0); Immature Granulocyte Absolute 0.04 K/mm3 (0.00-0.031); Immature Granulocyte Percent A 0.5 % (0-0.5); Lymphocytes Absolute Auto 3.97 K/mm3 (0.9-3.2); Lymphocytes Percent Auto 54.2 % (18.3-44.2); Mean Corpuscular HGB Conc 31.5 g/dl (32-36); Mean Corpuscular Hemoglobin 36.8 pg (26-34); Mean Corpuscular Volume 116.7 fl (80-100); Mean Platelet Volume 11.4 fl (7.4-10.4); Monocytes Absolute Auto 0.5 K/mm3 (0.1-0.6); Monocytes Percent Auto 6.8 % (2.6-8.5); Neutrophils Absolute Auto 2.7 K/mm3 (1.3-6.7); Neutrophils Percent Auto 37.2 % (45.5-73.1); Nucleated Red Blood Cells Perc 0.3 % (0.0-0.2); Platelet Count Result 162 k/mm3 (150-375); Red Blood Count 2.69 M/mm3 (4.6-6.20); Red Cell Distribution Width 17.3 % (11.5-14.5); White Blood Count 7.3 K/mm3 (4.5-10.0)
[2020-09-12 21:33] LABS: INR 1.1; Partial Thromboplastin Time 31.7 SECONDS (22.3-36.8); Prothrombin Time 14.8 Seconds (11.1-14.7)
[2020-09-12 21:37] LABS: Potassium 5.5 mmol/L (3.4-5.0)
[2020-09-12 21:38] LABS: Alanine Aminotransferase 16 U/L (4-50); Albumin Level 3.9 g/dL (3.5-5.1); Alkaline Phosphatase 73 U/L (38-126); Anion Gap 2 mmol/L (8-16); Aspartate Amino Transferase 25 U/L (17-59); Bilirubin,Total 0.3 mg/dL (0.2-1.3); Blood Urea Nitrogen 36 mg/dL (9-20); Calcium 8.6 mg/dL (8.4-10.2); Carbon Dioxide 33 mmol/L (22-30); Chloride 103 mmol/L (98-107); Estimated CRCL calculation 46 ml/min; Estimated Glomerular Filt Rate 45; Glucose 187 mg/dL (75-110); Magnesium 2.1 mg/dL (1.6-2.3); Sodium 138 mmol/L (137-145)
[2020-09-12] MEDS: FUROSEMIDE INJ 40 MG/4 ML VIAL IV PUSH (21:39)
[2020-09-12 21:48] LABS: NT Pro B Type Natriuretic Pept 1480 PG/ML (5-100); Troponin I < 0.012 ng/mL (0.000-0.034)
--- NOTE | 2020-09-12 23:15 | PM.IMHP ---
H&P: HPI History of Present Illness Date/Time: 09/12/20 23:15 Chief Complaint: Acute severe shortness of breath tonight++ Narrative: This is an 79 year old male with known paroxysmal atrial fibrillation on chronic Eliquis therapy, Diabetes mellitus, and Diastolic heart failure who was just recently admitted to [facility] 2 months ago after he had an AICD placed and suffered cardiac arrest postop. tonight the patient presented to our hospital with complaint of severe shortness of breath that started a few hours earlier. The patient is now known to chronically be on 3 L of oxygen at home and presented to the hospital saturating in the mid 80s. He was promptly placed on BiPAP and given 100 mg of IV Lasix. Tonight he denies any fevers, chills, cough, wheezing, chest pain, palpitations, abdominal discomfort, nausea, vomiting, dysuria, hematuria, diarrhea, rectal bleeding, or lower extremity swelling. He does relate that he has had increased minimal shortness of breath over the past 3 days which seemed to worsen this evening. Today the patient ate stuffed peppers and believes that it was stuffed with ground beef. He denies any increase all intake although he has not been watching his diet very closely. He has been taking his home medications as prescribed. Routine labs were obtained tonight emergency room which demonstrated mildly worsening renal function and hyperkalemia. The patient has extensive history of multiple episodes of flash pulmonary edema. Chest x-ray demonstrated cardiomegaly and bilateral pulmonary edema. We been asked to admit the patient to the hospital for further care. He states he feels much better now that he is on the BiPAP. No other complaints. Review of Systems Review of Systems: All systems reviewed & are unremarkable except as noted in HPI and below PMFSH Past Medical History Medical History Atrial fibrillation BPH (benign prostatic hyperplasia) Chronic respiratory failure with hypoxia and hypercapnia Coronary artery disease Diabetes mellitus Diastolic heart failure H/O: HTN (hypertension) HTN (hypertension), malignant Hyperlipidemia Surgical History Surgical History History of angioplasty History of coronary artery stent placement 2-3 History of lumbar laminectomy Family History Family History Sibling Diabetes mellitus Mother Family history of Alzheimer's disease, Onset Age: 76 Family history of Parkinson's disease Father Hypertension Chronic obstructive pulmonary disease Family history of coronary artery disease Social History Social History Social History: 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 The patient is a full code. Patient had 3 children and 1 daughter in a car accident. Patient used to smoke 2 packs of cigarettes a day for 25 years and he quit in 1987. He does not use any alcohol marijuana or substances. Smoking packs per day: 2 Smoking cigarettes per day: 40.0 Years smoked: 25 Smoking pack-years: 50.00 Smoking status: Former smoker Tobacco type: cigarettes Second hand tobacco smoke exposure: Yes Smoking end date: 07/30/87 Alcohol intake: current Drinks per week: 0 Substance use: never Substance use type: does not use Gender identity (if verbalized by the patient): Male Spiritual care concerns: No Meds Home Medications and Allergies Home Medications Medication Instructions Recorded Confirmed Type finasteride 5 mg tablet 5 mg PO DAILY 09/10/19 09/13/20 History cholecalciferol (vitamin D3) 50 50 mcg PO DAILY #1 cap 09/11/19 09/13/20 Rx mcg (2,000 unit) capsule fenofibric acid (choline) 135 mg 135 mg PO DAILY 09/11/19 09/13/20 H
[2020-09-13] VITALS (19 sets, daily range): BP systolic 98–121; BP diastolic 56–69; PULSE 83–91; RESP 18–23; TEMP 36–36.6; O2SAT 94–100; BMI 31.6
--- NOTE | 2020-09-13 00:34 | ADMGEN ---
This patient, Freddy Mireles Jr., was admitted to IMU Room 212-01 at 0034. Patient/family oriented to hospital policies and general routines including ID bracelet, bed and alarms, visiting hours, pain management, procedures, bathroom and other care routines, personal items, smoking policy, room service/diet, and visiting hours. Information on how to activate the Rapid Response Team has been discussed. Patient/Family are encouraged to report perceived risks to care and to ask questions if they do not understand what they are told or what they should do.
[2020-09-13 01:19] LABS: Alveolar/Arterial O2 Gradient 71.6 mmHg; Fractional Inspired Oxygen 30 %; HCO3 ABG 32.2 mEq/l (22.0-26.0); Oxygen Content ABG 13.1 %vol (16.0-22.0); Oxyhemoglobin 93.6 % THb (90.0-100.0); PCO2 ABG 55.4 mmHg (35.0-45.0); PO2 ABG 77.2 mmHg (80.0-100.0); PO2 FiO2 Ratio Arterial Blood 2.57 %; Total Hemoglobin 9.9 g/dL (12.0-18.0); pH ABG 7.382 (7.350-7.450)
[2020-09-13 01:20] LABS: Device NON-INVASIVE VENT; Modified Allen's Test Pass; Non-Invasive Vent Rate 4 /MIN; Site Drawn RIGHT RADIAL
[2020-09-13 01:21] LABS: Non-Invasive Expiratory Pressure 6 CMH2O; Non-Invasive Inspiratory Pressure 14 CMH2O
[2020-09-13 01:25] LABS: Troponin I < 0.012 ng/mL (0.000-0.034)
[2020-09-13 06:41] LABS: Basophils Percent Auto 0.2 % (0.2-1.2); Eosinophils Percent Auto 0.2 % (0-4.4); Hematocrit 27.5 % (42.0-52.0); Hemoglobin 8.9 g/dL (14.0-18.0); Immature Granulocyte Absolute 0.02 K/mm3 (0.00-0.031); Immature Granulocyte Percent A 0.5 % (0-0.5); Lymphocytes Percent Auto 34.9 % (18.3-44.2); Mean Corpuscular HGB Conc 32.4 g/dl (32-36); Mean Corpuscular Hemoglobin 36.9 pg (26-34); Mean Corpuscular Volume 114.1 fl (80-100); Monocytes Absolute Auto 0.4 K/mm3 (0.1-0.6); Monocytes Percent Auto 10.5 % (2.6-8.5); Neutrophils Absolute Auto 2.2 K/mm3 (1.3-6.7); Neutrophils Percent Auto 53.7 % (45.5-73.1); Platelet Count Result 123 k/mm3 (150-375); Red Blood Count 2.41 M/mm3 (4.6-6.20); Red Cell Distribution Width 16.8 % (11.5-14.5)
[2020-09-13 06:50] LABS: Anion Gap 0 mmol/L (8-16); Blood Urea Nitrogen 33 mg/dL (9-20); Calcium 8.8 mg/dL (8.4-10.2); Carbon Dioxide 38 mmol/L (22-30); Chloride 102 mmol/L (98-107); Estimated CRCL calculation 46 ml/min; Estimated Glomerular Filt Rate 45; Glucose 103 mg/dL (75-110); Potassium 3.9 mmol/L (3.4-5.0); Sodium 140 mmol/L (137-145)
[2020-09-13 06:57] LABS: Troponin I < 0.012 ng/mL (0.000-0.034)
[2020-09-13 08:15] LABS: Glucose Point of Care 102 (65-105)
[2020-09-13] MEDS: FUROSEMIDE INJ 40 MG/4 ML VIAL IV PUSH ×2 (10:52→17:30)
[2020-09-13 12:02] LABS: Glucose Point of Care 119 (65-105)
--- NOTE | 2020-09-13 15:23 | PM.CNCAR ---
Assessment and Plan Additional Plan 79-year-old man with well-documented history of ischemic cardiomyopathy. He underwent extensive workup and treatment at [facility] as described above in June and July and was just seen in the office last week. He is known not to have any significant coronary lesions angiographically back in June. He has a biventricular pacemaker device and ablated AV node because of difficulty controlling atrial fibrillation. He also had a VT ablation during the last hospitalization. He now presents with shortness of breath evidence of some pulmonary congestion which has rapidly cleared by symptoms and by exam with IV furosemide. I would transition him back to oral furosemide tomorrow and continue the remainder of his medical regimen which consists of amiodarone at 400 mg daily, clopidogrel 75 mg daily, apixaban 5 mg b.i.d., Entresto 24/26 mg B i.d.. Furosemide I would increase to 40 mg b.i.d. metoprolol 25 mg twice daily as well as rosuvastatin. The patient wishes to get out of the hospitalist soon as possible since he has an appointment for his 1st COVID vaccine on Sunday and he does not want to miss that appointment. Tony Miller MD [facility] History of Present Illness History of Present Illness Consult date/time: 09/13/20 15:23 Consult reason: congestive heart failure Reason For Visit: CHF Exacerbation Narrative: This is an 79-year-old man who I know very well for number of years with his heart disease who is admitted to the hospital last evening with shortness of breath felt to have some evidence of congestive heart failure and was admitted to the hospitalist service. The patient is receiving intravenous furosemide he states he feels much better is no longer short of breath and for this reason I was asked to see him in consultation today. The patient has a long story to history of ischemic heart disease, atrial and ventricular arrhythmias as well as interventional revascularization and electrophysiology procedures that have been performed both here and at [facility]. In summary the patient underwent a right coronary intervention in the remote past as well as an LAD intervention about 20 years ago. He did very well for many years but then became unstable with frequent episodes of abrupt chest pain/pulmonary edema subsequent angiography was found to have significant left main coronary disease and underwent percutaneous revascularization of this at [facility] as well as of the mid RCA again in 2018. He has had 2 subsequent angiograms at that hospital again most recently as June of 2020 that did not show any new coronary lesions. Unfortunately his ejection fraction is very low at 20 to 25%. With respect to arrhythmias the patient had a history of paroxysmal atrial fibrillation which was initially treated with sotalol. He then also had a history of significant ventricular arrhythmias and currently has had his AV node ablated by the cooperative education director at [facility] last year and couple of months ago while he was there had ventricular tachycardia ablation as he was having a lot of difficulty with shocks from his ICD despite medical therapy. After ablating his VT and continuing amiodarone and mexiletine his ventricular rhythm has been more stable he has not had any counter shocks for ventricular arrhythmias for about 2 months. I saw this patient in the office just last week at which time he appeared to be primarily complaining of symptoms of low cardiac output. I recommended advancing his Entresto to 2426 mg and stopped his Ranexa and isosorbide since he was hypotensive and not having any anginal chest pain. His next appointment to see me is next week in the office for short interval follow-up. Last night he states he was significantly short of breath shortness of breath became more problematic over the last 48-72 hours he was significantly dyspneic last night so he came to th
--- NOTE | 2020-09-13 15:44 | PM.IMPN ---
Progress Note: A&P Assessment and Plan (1) Acute hypoxemic respiratory failure: Code(s): J96.01 - Acute respiratory failure with hypoxia Status: Acute Assessment and Plan: Appears to be secondary to acute CHF exacerbation and flash pulmonary edema. Improving, watch BMP, on 3 liters of oxygen baseline is 2 (2) CHF exacerbation: Qualifiers: Heart failure type: unspecified Qualified Code(s): I50.9 - Heart failure, unspecified Code(s): I50.9 - Heart failure, unspecified Status: Acute Assessment and Plan: Acute Diastolic heart failure exacerbation. improving on iv lasix seen by cardiology continue Entresto, amiodarone , Plavix, Eliquis, (3) Chronic anemia: Code(s): D64.9 - Anemia, unspecified Status: Chronic Assessment and Plan: Likely anemia of chronic disease. (4) Acute kidney injury: Code(s): N17.9 - Acute kidney failure, unspecified Status: Acute Assessment and Plan: Acute worsening renal function likely secondary to hypoperfusion from acute CHF. (5) Suspected 2019 novel coronavirus infection: Code(s): Z20.828 - Contact with and (suspected) exposure to other viral communicable diseases Status: Acute Assessment and Plan: COVID-19 results pending. (6) H/O: HTN (hypertension): Code(s): Z86.79 - Personal history of other diseases of the circulatory system Status: Chronic Assessment and Plan: stable. restart home medications (7) Hyperlipidemia: Qualifiers: Hyperlipidemia type: unspecified Qualified Code(s): E78.5 - Hyperlipidemia, unspecified Code(s): E78.5 - Hyperlipidemia, unspecified Status: Chronic Assessment and Plan: Cotninue fish oil and fenofibric acid. (8) Atrial fibrillation: Qualifiers: Atrial fibrillation type: unspecified Qualified Code(s): I48.91 - Unspecified atrial fibrillation Code(s): I48.91 - Unspecified atrial fibrillation Status: Chronic Assessment and Plan: Rate controlled. Continue Amiodarone and eliquis. (9) Diabetes mellitus: Qualifiers: Diabetes mellitus type: type 2 Diabetes mellitus group home insulin use: without manager intermediate use Diabetes mellitus complication status: without complication Qualified Code(s): E11.9 - Type 2 diabetes mellitus without complications Code(s): E11.9 - Type 2 diabetes mellitus without complications Status: Chronic Assessment and Plan: Accuchecks, SSI coverage, hypoglycemic. Hold metformin secondary to worsening renal function. (10) COPD (chronic obstructive pulmonary disease): Qualifiers: COPD type: unspecified COPD Qualified Code(s): J44.9 - Chronic obstructive pulmonary disease, unspecified Code(s): J44.9 - Chronic obstructive pulmonary disease, unspecified Status: Chronic Additional Plan Subjective Date/time seen: 09/13/20 15:44 Interval history: 79 year old male with known paroxysmal atrial fibrillation on chronic Eliquis therapy, Diabetes mellitus, and Diastolic heart failure who was just recently admitted to [facility] 2 months ago after he had an AICD placed and suffered cardiac arrest postop. Admitted with SOB, likely here with chf exacerbation, awaiting covid test. feels better since admission wants to leave by sunday. 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
[2020-09-13 15:47] LABS: Glucose Point of Care 126 (65-105)
[2020-09-13] MEDS: APIXABAN 5 MG TABLET PO (17:29)
[2020-09-13] MEDS: PREGABALIN (*CRX) 50 MG CAPSULE 100 MG PO ×2 (17:29→22:49)
[2020-09-13 19:35] LABS: SARS-CoV-2 RNA PCR Negative
[2020-09-13 21:12] LABS: Glucose Point of Care 127 (65-105)
[2020-09-13] MEDS: METOPROLOL TARTRATE 25 MG TABLET PO (22:48)
[2020-09-13] MEDS: metFORMIN HCL XR 500 MG TAB.SR.24H 2000 MG PO (22:48)
[2020-09-13] MEDS: AMITRIPTYLINE HCL 10 MG TABLET PO (22:48)
[2020-09-13] MEDS: SACUBITRIL/VALSARTAN 24-26 MG TABLET 1 TAB PO (22:49)
[2020-09-13] MEDS: MEXILETINE HCL 150 MG CAPSULE PO (22:56)
--- NOTE | 2020-09-13 23:29 | ECHO_ITS ---
Patient Info Name: Freddy Mireles Age: 79 years : 1940 Gender: Male Ht: 74 in Wt: 247 lbs BSA: 2.45 m2 HR: 100 bpm BP: 103 / 58 mmHg Heart Rhythm: Tachycardia Technical Quality: Good Exam Date: 09/13/2020 2:22 PM Exam Location: [facility] Pulmonary Patient Status: Inpatient Admit Date: 09/12/2020 Staff Ordering Physician: Iglesia Boogie MD Drafter Assistant: Dario Shoemaker RDCS Attending Provider: Iglesia Boogie MD Referring Physician: Chuyita MENDOZA; Exam Type: CA echo doppler color flow Study Info Indications I50.9 - Heart failure, unspecified Complete two-dimensional, color flow and Doppler transthoracic echocardiogram is performed. History/Risk Factors CHF exacerbation; SOB. Summary 1. Complete two-dimensional, color flow and Doppler transthoracic echocardiogram is performed. 2. Normal LV size, mild LVH, mild LV systolic dysfunction, ejection fraction about 45%. Diastolic dysfunction is present with elevated left heart pressures. Mild left atrial enlargement. Pacemaker/ICD leads in RA/RV. Mitral annular calcification, no significant MR. Aortic valve sclerosis, no stenosis by Doppler. Trivial TR, unable to assess RVSP due to inadequate TR jet velocity. Left Ventricle Left ventricular chamber dimension is normal. Left ventricular systolic function is mildly reduced, estimated at 40-45%. There is mildly increased left ventricular wall thickness. The left ventricular diastolic function is abnormal. Right Ventricle Right ventricular chamber dimension is normal. Right ventricular systolic function is normal. Left Atria Left atrial chamber dimension is mildly enlarged. Right Atria Right atrial chamber dimension is normal. Aortic Valve There is mild aortic valve sclerosis. There is no aortic valve stenosis. Pulmonic Valve The pulmonic valve is not well visualized. Mitral Valve The mitral valve annulus is mildly calcified. Tricuspid Valve The tricuspid valve leaflets are normal. There is trace tricuspid valve regurgitation. Pericardium/Pleural The pericardium appears epicardial fat pad. There is trivial pericardial effusion. Inferior Vena Cava Normal inferior vena cava with >50% collapse upon inspiration consistent with normal right atrial pressure, 10 mmHg. Aorta The aortic root size at the sinus of Valsalva is normal. Left Ventricular Outflow Tract Name Value Normal LVOT 2D LVOT Diameter 2.2 cm LVOT Doppler LVOT Peak Gradient 3 mmHg LVOT Mean Gradient 1 mmHg LVOT VTI 18 cm LVOT VTI/AV VTI Ratio 0.7 LVOT Stroke Volume 64 ml LVOT CO 5.6 l/min LVOT CI 2.3 l/min/m2 Mitral Valve Name Value Normal MV Doppler
[2020-09-14] VITALS (12 sets, daily range): BP systolic 92–110; BP diastolic 50–62; PULSE 77–92; RESP 17–97; TEMP 35.7–36.2; O2SAT 22–99
[2020-09-14 04:59] LABS: Basophils Percent Auto 0.3 % (0.2-1.2); Eosinophils Percent Auto 1.2 % (0-4.4); Hematocrit 27.4 % (42.0-52.0); Hemoglobin 8.8 g/dL (14.0-18.0); Immature Granulocyte Absolute 0.01 K/mm3 (0.00-0.031); Immature Granulocyte Percent A 0.3 % (0-0.5); Lymphocytes Absolute Auto 1.24 K/mm3 (0.9-3.2); Lymphocytes Percent Auto 35.8 % (18.3-44.2); Mean Corpuscular HGB Conc 32.1 g/dl (32-36); Mean Corpuscular Hemoglobin 36.5 pg (26-34); Mean Corpuscular Volume 113.7 fl (80-100); Mean Platelet Volume 11.4 fl (7.4-10.4); Monocytes Absolute Auto 0.4 K/mm3 (0.1-0.6); Monocytes Percent Auto 12.1 % (2.6-8.5); Neutrophils Absolute Auto 1.7 K/mm3 (1.3-6.7); Neutrophils Percent Auto 50.3 % (45.5-73.1); Platelet Count Result 121 k/mm3 (150-375); Red Blood Count 2.41 M/mm3 (4.6-6.20); Red Cell Distribution Width 16.8 % (11.5-14.5); White Blood Count 3.5 K/mm3 (4.5-10.0)
[2020-09-14 05:15] LABS: Anion Gap 1 mmol/L (8-16); Blood Urea Nitrogen 35 mg/dL (9-20); Calcium 8.5 mg/dL (8.4-10.2); Carbon Dioxide 36 mmol/L (22-30); Chloride 101 mmol/L (98-107); Estimated CRCL calculation 52 ml/min; Estimated Glomerular Filt Rate 53; Glucose 109 mg/dL (75-110); Potassium 3.7 mmol/L (3.4-5.0); Sodium 138 mmol/L (137-145)
[2020-09-14] MEDS: PREGABALIN (*CRX) 50 MG CAPSULE 100 MG PO ×2 (05:23→13:04)
[2020-09-14 08:19] LABS: Glucose Point of Care 105 (65-105)
[2020-09-14] MEDS: TAMSULOSIN HCL 0.4 MG CAPSULE PO (08:22)
[2020-09-14] MEDS: CHOLECALCIFEROL 1,000 UNITS TABLET 2000 UNITS PO (08:22)
[2020-09-14] MEDS: MEXILETINE HCL 150 MG CAPSULE PO (08:22)
[2020-09-14] MEDS: CLOPIDOGREL BISULFATE 75 MG TABLET PO (08:22)
[2020-09-14] MEDS: APIXABAN 5 MG TABLET PO (08:23)
[2020-09-14] MEDS: FINASTERIDE 5 MG TABLET PO (08:23)
[2020-09-14] MEDS: AMIODARONE HCL 200 MG TABLET 400 MG PO (08:23)
[2020-09-14] MEDS: CYANOCOBALAMIN 500 MCG TABLET PO (08:23)
[2020-09-14] MEDS: ROSUVASTATIN 5 MG TABLET PO (08:24)
--- NOTE | 2020-09-14 09:22 | PM.PNCARD ---
Progress Note: A&P Assessment and Plan (1) CHF exacerbation: Qualifiers: Heart failure type: unspecified Qualified Code(s): I50.9 - Heart failure, unspecified Code(s): I50.9 - Heart failure, unspecified Status: Acute Assessment and Plan: Patient with ischemic cardiomyopathy, admitted with acute on chronic systolic CHF. Volume status is improving. -change IV furosemide to furosemide 40 mg p.o. b.i.d.. -continue other medications including antiplatelet treatment, sacubitril/valsartan, beta-bubba, statin. -patient is eager to be discharged. He is scheduled to receive 2nd dose of COVID-19 vaccine tomorrow. -okay to be discharged later today -patient is scheduled to see Dr. Miller in the outpatient cardiology clinic next week. (2) Atrial fibrillation: Qualifiers: Atrial fibrillation type: unspecified Qualified Code(s): I48.91 - Unspecified atrial fibrillation Code(s): I48.91 - Unspecified atrial fibrillation Status: Chronic Assessment and Plan: Anticoagulation with apixaban Patient is also on antiarrhythmic medications which will be continued. He follows up with an compliance investigator at [facility]. Subjective Date/time seen: 09/14/20 09:22 Interval history: 79 year old male with known paroxysmal atrial fibrillation on chronic Eliquis therapy, Diabetes mellitus, and Diastolic heart failure who was just recently admitted to [facility] 2 months ago after he had an AICD placed and suffered cardiac arrest postop. Admitted with SOB, likely here with chf exacerbation, awaiting covid test. feels better since admission wants to leave by sunday. Date of service 09/14/2020-patient reports improvement in shortness of breath. He denies chest pain, palpitation, dizziness or syncope. Exam Narrative: Exam Narrative: PHYSICAL EXAMINATION: GENERAL: Alert, oriented, no acute distress MENTAL STATUS: affect appropriate to mood EYES: Extraocular movements intact, no pallor EARS: External ears appear normal, hearing grossly normal NOSE: Normal and patent, no discharge MOUTH: Mucous membranes moist, tongue normal NECK: Supple, no JVD CHEST: Good respiratory effort, bibasilar crackles HEART: Normal rate, paced rhythm ABDOMEN: Soft, nontender NEUROLOGICAL: Alert, oriented, normal speech, no gross motor deficits MUSCULOSKELETAL: No major deformity, no amputation EXTREMITIES: No pedal edema, no clubbing, no cyanosis SKIN: no rash on the exposed area, no cyanosis PSYCHIATRIC: Normal mood, appropriate affect Objective Data Vital Signs Vital Signs: Vital Signs - 24 hr 09/13/20 10:00 09/13/20 12:00 09/13/20 14:00 Temperature 36.6 C Pulse Rate 89 91 91 Respiratory Rate 22 H Blood Pressure 105/66 Pulse Oximetry 95 09/13/20 15:53 09/13/20 16:00 09/13/20 18:00 Temperature 36.6 C Pulse Rate 86 89 89 Respiratory Rate 18 22 H Blood Pressure 108/69 Pulse Oximetry 98 95 09/13/20 20:00 09/13/20 21:09 09/13/20 22:00 Temperature 36.0 C L Pulse Rate 91 91 89 Respiratory Rate 20 19 Blood Pressure 121/63 Pulse Oximetry 96 96 09/13/20 22:48 09/13/20 22:56 09/14/20 00:00 Temperature 36.2 C L Pulse Rate 89 89 89 Respiratory Rate 22 H Blood Pressure 110/62 Pulse Oximetry 96 09/14/20 01:09 09/14/20 02:00 09/14/20 04:00 Temperature 36.2 C L Pulse Rate 89 92 89 Respiratory Rate 19 20 Blood Pressure 96/56 L Pulse Oximetry 97 96 09/14/20 04:43 09/14/20 06:00 09/14/20 08:38 Temperature 35.7 C L Pulse Rate 89 89 90 Respiratory Rate 17 22 H Blood Pressure 99/58 L Pulse Oximetry 99 94 Intake/Output Intake/Output: Intake & Output 09/11/20 09/12/20 09/13/20 09/14/20 23:59 23:59 23:59 23:59 Intake Total 720 Output Total 193 8778 [id number] Balance -096 -5735 -4210 Meds/Results Medications: Active Medications Generic Name Dose Route Start Last Admin Trade
[2020-09-14] MEDS: FUROSEMIDE 40 MG TABLET PO (10:43)
[2020-09-14] MEDS: SACUBITRIL/VALSARTAN 24-26 MG TABLET 1 TAB PO (10:43)
[2020-09-14 12:35] LABS: Glucose Point of Care 129 (65-105)
--- NOTE | 2020-09-14 14:25 | PM.DS ---
DS: Admitting Diagnosis Admitting Diagnosis Admitting Diagnosis: (1) Acute hypoxemic respiratory failure: (2) CHF exacerbation: (3) Chronic anemia: (4) Acute kidney injury: (5) Suspected 2019 novel coronavirus infection: (6) H/O: HTN (hypertension): (7) Hyperlipidemia: (8) Atrial fibrillation: (9) Diabetes mellitus: (10) COPD (chronic obstructive pulmonary disease): DS: Discharge Diagnosis Discharge Diagnosis (1) Acute hypoxemic respiratory failure: Code(s): J96.01 - Acute respiratory failure with hypoxia Status: Acute Assessment and Plan: Secondary to flash lung edema Resolved (2) Systolic heart failure: Qualifiers: Heart failure chronicity: chronic Qualified Code(s): I50.22 - Chronic systolic (congestive) heart failure Code(s): I50.20 - Unspecified systolic (congestive) heart failure Status: Acute Assessment and Plan: Will follow up in the outpatient setting (3) Pulmonary edema cardiac cause: Code(s): I50.1 - Left ventricular failure, unspecified Status: Acute Assessment and Plan: Resolved Diuresed (4) Atrial fibrillation: Qualifiers: Atrial fibrillation type: unspecified Qualified Code(s): I48.91 - Unspecified atrial fibrillation Code(s): I48.91 - Unspecified atrial fibrillation Status: Chronic Assessment and Plan: Rate controlled (5) NICOLE (obstructive sleep apnea): Code(s): G47.33 - Obstructive sleep apnea (adult) (pediatric) Status: Chronic Assessment and Plan: CPAP at night time (6) COPD (chronic obstructive pulmonary disease): Qualifiers: COPD type: unspecified COPD Qualified Code(s): J44.9 - Chronic obstructive pulmonary disease, unspecified Code(s): J44.9 - Chronic obstructive pulmonary disease, unspecified Status: Chronic Assessment and Plan: Stable Continue home meds DS: Summary Hospital Course Reason for hospitalization: SOB Hospital Course: This is an 79 year old man with known paroxysmal atrial fibrillation on chronic Eliquis therapy, Diabetes mellitus, and Diastolic heart failure who was just recently admitted to [facility] 2 months ago after he had an AICD placed and suffered cardiac arrest postop, the patient presented to our hospital with complaint of severe shortness of breath that started a few hours earlier. The patient is now known to chronically be on 3 L of oxygen at home and upon presentation to the hospital his saturating was in the mid 80s. He was placed on BiPAP and given IV Lasix. He states that he has had increased minimal shortness of breath over the past 3 days which seemed to worsen as off the night he came. Routine labs were obtained in the emergency room which demonstrated mildly worsening renal function and hyperkalemia. The patient has extensive history of multiple episodes of flash pulmonary edema. He was admitted to IMU for further evaluation and close monitoring. His hospital stay was uneventful. Cardiology was consulted Patient was successfully placed on diuresis and his symptoms went away he was discharged home and will follow up in the outpatient setting with his Steam Shovel Runner. It was felt that his flash pulmonary edema might have been caused by non compliance wih diet as he was eating high sodium meals with a very low EF. Summary 1. Complete two-dimensional, color flow and Doppler transthoracic echocardiogram is performed. 2. Normal LV size, mild LVH, mild LV systolic dysfunction, ejection fraction about 45%. Diastolic dysfunction is present with elevated left heart pressures. Mild left atrial enlargement. Pacemaker/ICD leads in RA/RV. Mitral annular calcification, no significant MR. Aortic valve sclerosis, no stenosis by Doppler. Trivial TR, unable to assess RVSP due to inadequate TR jet velocity. Left Ventricle
== END 2020-09-14 15:30 | disposition home health service (06) | DRG 291 ==
LOC: ANHED 22:21 → ANHIMU 09-13 01:41
PROVIDERS: Family Medicine; Admitting Provider Family Medicine; Emergency Provider Emergency Medicine; PCP Family Medicine; Visit Provider Internal Medicine
DX: I11.0 Hypertensive heart disease with heart failure (principal); J96.21 Acute and chronic respiratory failure with hypoxia; N17.9 Acute kidney failure, unspecified; J96.12 Chronic respiratory failure with hypercapnia; I50.23 Acute on chronic systolic (congestive) heart failure; Z20.822 Contact with and (suspected) exposure to COVID-19; D64.9 Anemia, unspecified; E78.5 Hyperlipidemia, unspecified; J44.9 Chronic obstructive pulmonary disease, unspecified; G47.33 Obstructive sleep apnea (adult) (pediatric); E87.5 Hyperkalemia; I48.0 Paroxysmal atrial fibrillation; I25.10 Atherosclerotic heart disease of native coronary artery without angina pectoris; I25.5 Ischemic cardiomyopathy; E11.9 Type 2 diabetes mellitus without complications; Z79.01 Long term (current) use of anticoagulants; Z79.02 Long term (current) use of antithrombotics/antiplatelets; Z79.82 Long term (current) use of aspirin; Z79.899 Other long term (current) drug therapy; Z86.74 Personal history of sudden cardiac arrest; Z87.891 Personal history of nicotine dependence; Z91.11 Patient's noncompliance with dietary regimen; Z95.5 Presence of coronary angioplasty implant and graft; Z95.810 Presence of automatic (implantable) cardiac defibrillator; Z99.81 Dependence on supplemental oxygen
CPT/HCPCS: 36415; 36600; 71045; 80048; 80053; 82805; 82948; 83735; 83880; 84443; 84484; 85025; 85610; 85730; 87040; 87804; 93005; 93306; 94003; 94640; 96374; 99285; A9270; C9803; J1940; U0003; U0005

== ENCOUNTER 2020-10-23 16:54 | Emergency (ER) | payer MEDICARE, SELFPAY ==
--- NOTE | ~2020-10-23 | XR_ITS ---
EXAMINATION: [id number] EXAM DATE: 10/23/2020 17:23 INDICATION: Leaned to the left and felt a pop, left rib pain. TECHNIQUE: Frontal projection of the upper left ribs, frontal projection of the lower left ribs, obli que projection of the left ribs, frontal chest x-ray(s) for interpretation. Correlation is made to [facility] x-ray 09/12/2020. FINDINGS: There are no displaced acute left rib fractures identified. There is no soft tissue abnor mality seen. Cardiomediastinal silhouette is normal. No confluent consolidation, pneumothorax or pleu ral effusion suspected. Triple lead pacemaker/AICD device. IMPRESSION: No displaced left rib fractures. Reviewed, dictated and finalized at location A.
[2020-10-23 17:00] VITALS: BP 113/42; PULSE 92; RESP 20; TEMP 36.7; O2SAT 98
--- NOTE | 2020-10-23 17:13 | ED.GENADULT ---
HPI - General Adult General Chief complaint: Chest Pain Stated complaint: injured rib Time Seen by Provider: 10/23/20 17:13 Source: patient Mode of arrival: ambulatory Limitations: no limitations History of Present Illness HPI narrative: Freddy Mireles is an 79 yo male with a PMH of A. fib, BPH, chronic respiratory failure, CAD, diabetes, who comes to [facility] for evaluation for rib pain after he bent over to 4 he states that he was bending over and felt a pop on L rib- here to evaluate pain Related Data Home Medications Medication Instructions Recorded Confirmed finasteride 5 mg tablet 5 mg PO DAILY 09/10/19 10/23/20 fenofibric acid (choline) 135 mg 135 mg PO DAILY 09/11/19 10/23/20 capsule,delayed release furosemide 40 mg tablet 40 mg PO BID 09/11/19 10/23/20 multivitamin 1 cap PO DAILY 09/11/19 10/23/20 omega3-dha 200 mg-epa 300 mg-othr 2 cap PO HS 09/11/19 10/23/20 om3 100 mg-fish oil 1,000 mg capsule Eliquis 5 mg PO BID 12/18/19 10/23/20 clopidogrel [Plavix] 75 mg PO DAILY #0 12/19/19 10/23/20 cyanocobalamin (vitamin B-12) 500 mcg PO DAILY 12/19/19 10/23/20 [Vitamin B-12] coenzyme Q10 [CoQ-10] 200 mg PO DAILY 12/21/19 10/23/20 blood sugar diagnostic #10 each 02/26/20 10/23/20 rosuvastatin 5 mg tablet 5 mg PO DAILY 05/07/20 10/23/20 amitriptyline 10 mg PO HS 07/06/20 10/23/20 mexiletine 150 mg BYMOUTH BID 09/13/20 10/04/20 tamsulosin 0.4 mg PO DAILY 09/13/20 10/23/20 fluticasone fur. 100 mcg-umeclid 1 inh INHALATION DAILY 09/16/20 10/23/20 62.5 mcg-vilant 25 mcg inhalat.powder amiodarone 200 mg tablet 200 mg PO DAILY tablet 10/04/20 10/23/20 carvedilol 3.125 mg tablet 3.125 mg PO Q12H 10/04/20 10/23/20 sacubitril 24 mg-valsartan 26 mg 0.5 tablet PO BID tablet 10/04/20 10/23/20 tablet Allergies Allergy/AdvReac Type Severity Reaction Status Date / Time No Known Allergies Allergy Verified 10/23/20 17:07 Review of Systems Review of Systems: Narrative: CONSTITUTIONAL: Denies fever, chills, sweats. EYES: Denies visual changes, redness, discharge. ENT: Denies rhinorrhea, congestion, sore throat, otalgia. CARDIOVASCULAR: Denies chest pain, palpitations, edema. Left rib pain RESPIRATORY: Denies dyspnea, wheezing, cough GASTROINTESTINAL: Denies abdominal pain, nausea, vomiting, diarrhea. GENITOURINARY: Denies dysuria, hematuria, abnormal discharge SKIN: Denies rash or itching. NEUROLOGIC: Denies numbness, or focal weakness. PSYCHIATRIC: Denies anxiety or depression. [facility] Past Medical History Medical History Atrial fibrillation BPH (benign prostatic hyperplasia) Chronic respiratory failure with hypoxia and hypercapnia Coronary artery disease Diabetes mellitus Diastolic heart failure H/O: HTN (hypertension) HTN (hypertension), malignant Hyperlipidemia Surgical History Surgical History History of angioplasty History of coronary artery stent placement 2-3 History of lumbar laminectomy Family History Family History Sibling Diabetes mellitus Mother Family history of Alzheimer's disease, Onset Age: 76 Family history of Parkinson's disease Father Hypertension Chronic obstructive pulmonary disease Family history of coronary artery disease Social History Social History Social History: The patient is and 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 The patient is a full code. Patient had 3 children and 1 daughter in a car accident. Patient used to smoke 2 packs of cigarettes a day for 25 years and he quit in 1987. He does not use any alcohol marijuana or substances. Smoking packs per day: 2 Smoking cigarettes per day: 40.0 Years smoked: 25 Smoking pack-years: 50.00 Tobacco type: cigarettes Second
== END 2020-10-23 17:45 | disposition home or self-care (01) ==
PROVIDERS: Emergency Provider Nurse Practitioner; PCP Internal Medicine
DX: R07.81 Pleurodynia (principal); I48.91 Unspecified atrial fibrillation; I11.0 Hypertensive heart disease with heart failure; I50.30 Unspecified diastolic (congestive) heart failure; E78.5 Hyperlipidemia, unspecified; E11.9 Type 2 diabetes mellitus without complications; Z87.891 Personal history of nicotine dependence
CPT/HCPCS: 71101; 99213; G0463

== ENCOUNTER 2020-10-25 18:43 | Inpatient (IN) | payer MEDICARE, SELFPAY ==
--- NOTE | ~2020-10-25 | XR_ITS ---
EXAMINATION: XR chest 1V portable DATE: 10/25/2020 19:32 INDICATION: Shortness of breath. TECHNIQUE: A single frontal view of the chest was obtained. COMPARISON: Chest single view 09/12/2020, chest CT 03/28/2020 FINDINGS: There are lucencies in the upper lungs, consistent with emphysema. There are patchy airspac e opacities in all lung zones bilaterally. There is a small left pleural effusion. No pneumothorax. T he heart size is normal. There is a left chest pacer/defibrillator with leads in the right atrium, ri ght ventricle, and coronary sinus. IMPRESSION: 1. Diffuse lung disease, consistent with pulmonary edema versus pneumonia. 2. Small left pleural effusion. 3. Emphysema. Reviewed, dictated and finalized at location A.
--- NOTE | ~2020-10-25 | US_ITS ---
EXAMINATION: US renal BI DATE: 10/28/2020 11:25 INDICATION: Acute renal insufficiency TECHNIQUE: Multiple ultrasound grayscale images of the kidneys were obtained. COMPARISON: 12/23/2019 FINDINGS: The right kidney measures 13.9 x 6.1 x 6.5 cm. The left kidney measures 11.3 x 6.3 x 6.3 cm. The kidn eys demonstrate normal echogenicity. 3.9 cm anechoic cyst at the lower pole of the right kidney. Ther e is no hydronephrosis in either kidney. No stones identified. The bladder is decompressed around a Santos catheter which limits evaluation. IMPRESSION: 1. 3.9 cm right renal cyst. Otherwise normal kidneys without hydronephrosis. Reviewed, dictated and finalized at location A.
--- NOTE | ~2020-10-25 | XR_ITS ---
EXAMINATION: XR chest 1V portable DATE: 10/27/2020 06:31 INDICATION: Respiratory failure TECHNIQUE: frontal view of the chest was obtained. COMPARISON: Chest radiograph dated 10/25/20 FINDINGS: Persistent bilateral perihilar predominant airspace opacities . The pleural effusion or pneumothorax. The cardiomediastinal silhouette is normal. Three lead pacemaker/AICD seen with leads projecting ove r the expected locations of the right atrial appendage, apex of the right ventricle and overlying the left ventricle likely having traversed the coronary sinus. IMPRESSION: 1. Bilateral perihilar predominant lung disease which could represent pulmonary edema or pneumonia. 2. Emphysema better appreciated on CT dated 03/28/2020 . Reviewed, dictated and finalized at location A.
[2020-10-25 18:49] VITALS: BP 153/68; PULSE 91; RESP 26; TEMP 36.6; O2SAT 92
--- NOTE | 2020-10-25 18:54 | ECG_ITS ---
Measurements Intervals [place] Rate: 91 P: 16 TN: 162 QRS: 185 QRSD: 169 T: 49 QT: 404 QTc: 498 Interpretive Statements ELECTRONIC ATRIAL PACEMAKER ELECTRONIC VENTRICULAR PACEMAKER BASELINE ARTIFACT- I, II, III, AVR, AVF, V1-V3 NO FURTHER INTERPRETATION IS POSSIBLE ATYPICAL ECG Electronically Signed On 10-26-2020 7:03:14 CDT by Sanya Stewart D.O.
[2020-10-25 19:02] VITALS: PULSE 156; PULSE 91; RESP 34; O2SAT 95
[2020-10-25 19:31] LABS: Basophils Percent Auto 0.4 % (0.2-1.2); Eosinophils Percent Auto 0.3 % (0-4.4); Hematocrit 30.3 % (42.0-52.0); Hemoglobin 9.8 g/dL (14.0-18.0); Immature Granulocyte Absolute 0.07 K/mm3 (0.00-0.031); Lymphocytes Absolute Auto 1.37 K/mm3 (0.9-3.2); Lymphocytes Percent Auto 19.5 % (18.3-44.2); Mean Corpuscular HGB Conc 32.3 g/dl (32-36); Mean Corpuscular Hemoglobin 36.7 pg (26-34); Mean Corpuscular Volume 113.5 fl (80-100); Mean Platelet Volume 12.2 fl (7.4-10.4); Monocytes Absolute Auto 0.6 K/mm3 (0.1-0.6); Monocytes Percent Auto 9.1 % (2.6-8.5); Neutrophils Absolute Auto 4.9 K/mm3 (1.3-6.7); Neutrophils Percent Auto 69.7 % (45.5-73.1); Platelet Count Result 175 k/mm3 (150-375); Red Blood Count 2.67 M/mm3 (4.6-6.20); Red Cell Distribution Width 16.9 % (11.5-14.5)
[2020-10-25 19:32] VITALS: BP 107/61; PULSE 89; RESP 28; O2SAT 97
[2020-10-25 19:34] LABS: Alveolar/Arterial O2 Gradient 143.1 mmHg; Base Excess ABG 0.8 mEq/l (+/-2.0); Carboxyhemoglobin 1.1 % THb (0-2.0); Fractional Inspired Oxygen 35 %; HCO3 ABG 24.9 mEq/l (22.0-26.0); Oxygen Content ABG 11.8 %vol (16.0-22.0); Oxygen Saturation ABG 92.9 % (95.0-100.0); Oxyhemoglobin 89.7 % THb (90.0-100.0); PCO2 ABG 37.6 mmHg (35.0-45.0); PO2 ABG 62.7 mmHg (80.0-100.0); PO2 FiO2 Ratio Arterial Blood 1.79 %; Reduced Hemoglobin 9.2 %THb (0-5.0); Total Hemoglobin 9.3 g/dL (12.0-18.0); pH ABG 7.439 (7.350-7.450)
[2020-10-25 19:35] LABS: Device BIPAP; Expiratory Pressure 5 cmH2O; Inspiratory Pressure 14 cmH2O; Modified Allen's Test Pass; Site Drawn RIGHT RADIAL
--- NOTE | 2020-10-25 20:09 | ED.SOB ---
HPI - SOB/Dyspnea General Chief Complaint: Shortness of Breath/Dyspnea Stated Complaint: sob Time Seen by Provider: 10/25/20 18:46 History of Present Illness HPI Narrative: Patient is an 79-year-old male with history of congestive heart failure who presents the ER with sudden onset shortness of breath. Occurred shortly before 6 PM. Found to be satting in the 70s by EMS. Placed on CPAP with improvement of oxygenation. Patient has no chest pain or chest pressure. Reports has had no weight change. No new edema. He has been taking his medications as prescribed. No fevers or chills or sweats or productive cough. Related Data Home Medications Medication Instructions Recorded Confirmed finasteride 5 mg tablet 5 mg PO DAILY 09/10/19 10/23/20 fenofibric acid (choline) 135 mg 135 mg PO DAILY 09/11/19 10/23/20 capsule,delayed release furosemide 40 mg tablet 40 mg PO BID 09/11/19 10/23/20 multivitamin 1 cap PO DAILY 09/11/19 10/23/20 omega3-dha 200 mg-epa 300 mg-othr 2 cap PO HS 09/11/19 10/23/20 om3 100 mg-fish oil 1,000 mg capsule Eliquis 5 mg PO BID 12/18/19 10/23/20 clopidogrel [Plavix] 75 mg PO DAILY #0 12/19/19 10/23/20 cyanocobalamin (vitamin B-12) 500 mcg PO DAILY 12/19/19 10/23/20 [Vitamin B-12] coenzyme Q10 [CoQ-10] 200 mg PO DAILY 12/21/19 10/23/20 blood sugar diagnostic #10 each 02/26/20 10/23/20 rosuvastatin 5 mg tablet 5 mg PO DAILY 05/07/20 10/23/20 amitriptyline 10 mg PO HS 07/06/20 10/23/20 mexiletine 150 mg BYMOUTH BID 09/13/20 10/04/20 tamsulosin 0.4 mg PO DAILY 09/13/20 10/23/20 fluticasone fur. 100 mcg-umeclid 1 inh INHALATION DAILY 09/16/20 10/23/20 62.5 mcg-vilant 25 mcg inhalat.powder amiodarone 200 mg tablet 200 mg PO DAILY tablet 10/04/20 10/23/20 carvedilol 3.125 mg tablet 3.125 mg PO Q12H 10/04/20 10/23/20 sacubitril 24 mg-valsartan 26 mg 0.5 tablet PO BID tablet 10/04/20 10/23/20 tablet Allergies Allergy/AdvReac Type Severity Reaction Status Date / Time No Known Allergies Allergy Verified 10/23/20 17:07 Review of Systems Review of Systems: All systems reviewed & are unremarkable except as noted in HPI and below Constitutional: Constitutional: Denies chills, Denies fever(s) and Denies weakness ENT: Denies nasal congestion and Denies sore throat Cardiovascular: Cardiovascular: Denies chest pain, Denies rapid heart rate and Denies radiating jaw, neck or arm pain Respiratory: Respiratory: Denies cough, Reports dyspnea and Denies wheezing Gastrointestinal: Gastrointestinal: Denies abdominal pain, Denies nausea and Denies vomiting PMFSH Past Medical History Medical History Atrial fibrillation BPH (benign prostatic hyperplasia) Chronic respiratory failure with hypoxia and hypercapnia Coronary artery disease Diabetes mellitus Diastolic heart failure H/O: HTN (hypertension) HTN (hypertension), malignant Hyperlipidemia Surgical History Surgical History History of angioplasty History of coronary artery stent placement 2-3 History of lumbar laminectomy Family History Family History Sibling Diabetes mellitus Mother Family history of Alzheimer's disease, Onset Age: 76 Family history of Parkinson's disease Father Hypertension Chronic obstructive pulmonary disease Family history of coronary artery disease Social History Social History Social History: The patient is and his is 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 The patient is a full code. Patient had 3 children and 1 daughter in a car accident. Patient used to smoke 2 packs of cigarettes a day for 25 years and he quit in 1987. He does not use any alcohol marijuana or substances. Smoking packs per day: 2 Smoking cigarettes per day: 40.0 Years smo
[2020-10-25 20:23] LABS: INR 1.2; Prothrombin Time 15.5 Seconds (11.1-14.7)
[2020-10-25 20:24] LABS: Anion Gap 4 mmol/L (8-16); Blood Urea Nitrogen 38 mg/dL (9-20); Calcium 8.3 mg/dL (8.4-10.2); Carbon Dioxide 27 mmol/L (22-30); Chloride 105 mmol/L (98-107); Estimated Glomerular Filt Rate 45; Glucose 148 mg/dL (75-110); Partial Thromboplastin Time 36.4 SECONDS (22.3-36.8); Potassium 4.6 mmol/L (3.4-5.0); Sodium 136 mmol/L (137-145)
[2020-10-25 20:36] LABS: NT Pro B Type Natriuretic Pept 1310 PG/ML (5-100); Troponin I < 0.012 ng/mL (0.000-0.034)
[2020-10-25 20:51] VITALS: BP 118/53; PULSE 90; RESP 22; O2SAT 94
[2020-10-25] MEDS: FUROSEMIDE INJ 40 MG/4 ML VIAL IV PUSH (20:51)
--- NOTE | 2020-10-25 22:59 | PM.IMHP ---
H&P: HPI History of Present Illness Date/Time: 10/25/20 22:59 Chief Complaint: Shortness of breath Narrative: 79-year-old male with a past medical history of obstructive sleep apnea, ischemic cardiomyopathy, chronic hypoxic respiratory failure on home O2 3 L who presented to the ER via EMS with sudden onset of shortness of breath. That her symptoms started just before 6:00 p.m.. When EMS arrived at his home he was found to be satting 70% on his 3 L nasal cannula. He was placed on CPAP with improvement in oxygenation. He denied any lower extremity swelling increased abdominal girth or increase in his weight. He weighs himself on a daily basis. He has been taking his cardiac medications as prescribed. He denies any chest pain or palpitations. He was admitted to the hospital 2019 he was transferred to [facility] for AICD placement due to ventricular arrhythmias. He has not had any loss of consciousness. He has been admitted multiple times in the past due to flash pulmonary edema with his last hospitalization August 2020. Had echocardiogram at that time that demonstrated EF of 45% and diastolic dysfunction. He reports feeling slightly better than he did at home. However at the time my evaluation the patient could be heard to have crackles from my position at the patient's bedside. When I went back in the room to re-evaluate made the patient with respiratory therapy the patient was found to have oxygen saturations of 75% on 4 L nasal cannula. He was placed back on BiPAP and after multiple adjustments he was stable on BiPAP with pressures at 10/5 with 80% FiO2. He has been compliant with his own CPAP. He tries to eat a low-salt diet. Review of Systems Review of Systems: Narrative: 12 systems were reviewed with pertinent positives and negatives per HPI. Except as documented in the HPI, all other systems were reviewed and are negative. [facility] Past Medical History Medical History (Updated 10/26/20 @ 04:56 by Stephani Yarbrough DO) Atrial fibrillation BPH (benign prostatic hyperplasia) CHF (congestive heart failure) Echocardiogram August 2020: EF of 45%, diastolic dysfunction with elevated left heart pressures, mild left atrial enlargement Chronic anemia Chronic hypoxemic respiratory failure Coronary artery disease Diabetes mellitus Essential hypertension Hyperlipidemia Ischemic cardiomyopathy EF of 20-25% on cardiac catheterization June 2020 Megaloblastic anemia NICOLE (obstructive sleep apnea) Vitamin D deficiency Surgical History Surgical History (Updated 10/26/20 @ 04:49 by Stephani Yarbrough DO) History of angioplasty History of aortic valve replacement History of cardiac catheterization Right coronary intervention in the remote past, LAD intervention about 20 years ago. Repeat catheterization 2017 at [facility] with mid RCA intervention, catheterization June 2020 demonstrated EF of 20-25% with no new coronary artery occlusions History of coronary artery stent placement 2-3 History of lumbar laminectomy Hx of atrioventricular node ablation (~2018) [facility] Presence of biventricular AICD (~12/2019) S/P biventricular cardiac pacemaker procedure Status post ablation of ventricular arrhythmia (~05/2020) [facility] Family History Family History Sibling Diabetes mellitus Mother Dementia Parkinsons disease Father Hypertension Chronic obstructive pulmonary disease Heart disease Social History Social History (Updated 10/26/20 @ 04:51 by Stephani Yarbrough DO) Social History: He lives with his of 62 years. They have 2 living children (1 daughter in a car accident). 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 Patient used to smoke 2 packs of cigarettes a day for 25 years and he quit in 1987. He drinks 2 or 3 glasses a wine a week. He denies any marijuana or substances.
[2020-10-25 23:15] VITALS: BP 111/40; PULSE 89; RESP 20; TEMP 36.6; O2SAT 97
--- NOTE | 2020-10-25 23:28 | ADMGEN ---
This patient, Freddy Mireles Jr., was admitted to IMU Room 205-02. Patient/family oriented to hospital policies and general routines including ID bracelet, bed and alarms, visiting hours, pain management, procedures, bathroom and other care routines, personal items, smoking policy, room service/diet, and visiting hours. Information on how to activate the Rapid Response Team has been discussed. Patient/Family are encouraged to report perceived risks to care and to ask questions if they do not understand what they are told or what they should do. arrived [id number]
[2020-10-25 23:29] VITALS: BMI 29.2
[2020-10-25 23:41] VITALS: PULSE 89; RESP 30; O2SAT 75; O2SAT 92
[2020-10-26] VITALS (22 sets, daily range): BP systolic 84–105; BP diastolic 38–82; PULSE 63–98; RESP 18–28; TEMP 36.4–37.1; O2SAT 89–100; BMI 29.2
[2020-10-26] MEDS: FUROSEMIDE INJ 40 MG/4 ML VIAL IV PUSH ×3 (01:10→17:55)
[2020-10-26] MEDS: PREGABALIN (*CRX) 50 MG CAPSULE 100 MG PO ×3 (06:00→20:57)
[2020-10-26] MEDS: BACLOFEN 5 MG TABLET PO ×3 (08:02→17:54)
[2020-10-26] MEDS: APIXABAN 5 MG TABLET PO ×2 (08:02→17:55)
[2020-10-26] MEDS: MEXILETINE HCL 150 MG CAPSULE BY MOUTH ×2 (08:02→17:56)
[2020-10-26] MEDS: CHOLECALCIFEROL 1,000 UNITS TABLET 2000 UNITS PO (08:02)
[2020-10-26] MEDS: SACUBITRIL/VALSARTAN 12-13 MG TABLET 1 TAB PO ×2 (08:02→17:56)
[2020-10-26] MEDS: CYANOCOBALAMIN 500 MCG TABLET 1500 MCG PO (08:02)
[2020-10-26] MEDS: TAMSULOSIN HCL 0.4 MG CAPSULE PO (08:02)
[2020-10-26] MEDS: AMIODARONE HCL 200 MG TABLET PO (08:02)
[2020-10-26] MEDS: FENOFIBRATE NANOCRYSTALLIZED 145 MG TABLET PO (08:02)
[2020-10-26] MEDS: MULTIVITAMINS THERAPEUTIC TAB (*BKC) 1 TABLET PO (08:02)
[2020-10-26] MEDS: FINASTERIDE 5 MG TABLET PO (08:03)
[2020-10-26] MEDS: ROSUVASTATIN 5 MG TABLET PO (08:03)
[2020-10-26] MEDS: metFORMIN HCL XR 500 MG TAB.SR.24H 1000 MG PO ×2 (08:03→17:55)
[2020-10-26] MEDS: carvediloL 3.125 MG TABLET PO ×2 (08:03→20:57)
[2020-10-26] MEDS: CLOPIDOGREL BISULFATE 75 MG TABLET PO (08:03)
[2020-10-26] MEDS: FLUTICASONE/UMECLIDIN/VILANTER 100-62.5-25 MCG ELLIPTA 1 PUFF INHALATION (08:04)
[2020-10-26 08:24] LABS: Glucose Point of Care 134 (65-105)
--- NOTE | 2020-10-26 11:58 | PM.IMPN ---
Progress Note: A&P Assessment and Plan (1) Acute hypoxemic respiratory failure: Code(s): J96.01 - Acute respiratory failure with hypoxia Status: Acute Assessment and Plan: Patietn with acute onset SOB. Patient has hx of pulmonary edema. Renal US in November showing mildly elevated left renal arterial velocity proximally, may indicate greater than 50-60% stenosis. Continue diuresis. Cardiology input appreciated. (2) Flash pulmonary edema: Code(s): J81.0 - Acute pulmonary edema Status: Acute Assessment and Plan: CXR showing diffuse lung disease with BNP 1300. Clinically better with BiPAP and diuresis. Etiology unclear. Have PM interrogated. (3) CHF exacerbation: Qualifiers: Heart failure type: combined systolic and diastolic Qualified Code(s): I50.43 - Acute on chronic combined systolic (congestive) and diastolic (congestive) heart failure Code(s): I50.9 - Heart failure, unspecified Status: Acute Assessment and Plan: As above. Echocardiogram in August 2020 showing mild LV systolic dysfunction with EF of 45% and diastolic dysfunction. Currently on Lasix IV with good UOP. Continue Entreasto and Coreg. (4) Diabetes mellitus: Qualifiers: Diabetes mellitus complication status: without complication Diabetes mellitus detention insulin use: without long term care phlebotomist use Diabetes mellitus type: type 2 Qualified Code(s): E11.9 - Type 2 diabetes mellitus without complications Code(s): E11.9 - Type 2 diabetes mellitus without complications Status: Chronic Assessment and Plan: A1c 5.4 in September 2020. The patient's blood glucose was reviewed on 10/26 Glucose remains well controlled. Continue AccuCheks covering with sliding scale. Hypoglycemia protocol available as needed. Continue current medications. (5) Atrial fibrillation: Qualifiers: Atrial fibrillation type: unspecified Qualified Code(s): I48.91 - Unspecified atrial fibrillation Code(s): I48.91 - Unspecified atrial fibrillation Status: Chronic Assessment and Plan: Paced rhythm now. Heart rate controlled. Currently on Mexilitine and Amio. Continue Coreg. Continue Eliquis. Appreciate Cardilogy input. (6) DVT prophylaxis: Code(s): Z29.9 - Encounter for prophylactic measures, unspecified Status: Acute Assessment and Plan: Kellee Subjective Date/time seen: 10/26/20 11:58 Interval history: 79yo male with AFib and CHF here for SOB and found to have acute respiratory failure. Patient feels short of breath. Denies chest pain. No nausea or vomiting. He is has been having a nonproductive cough recently but no fever or chills. Exam Narrative: Exam Narrative: AF 98.8 92/50 89 18 96% BiPAP Gen - NARD with BiPAP in place Chest - L>R bibasilar inspiratory crackles, nml RR. left upper chest device in place that is well healed CV - RRR S1/S2; Tele showing paced rhythm Abd - Soft, NT/ND, Positive BS - Santos secured draining clear yellow urine Ext - No pedal edema Neuro - Alert and oriented. Nonfocal exam. Psych - Nml mood and affect Skin - dried eschars Right LE and UE Objective Data Vital Signs Vital Signs: Vital Signs - 24 hr 10/25/20 18:49 10/25/20 19:02 10/25/20 19:32 Temperature 97.9 F Pulse Rate 91 156 H 89 Respiratory Rate 26 H 34 H 28 H Blood Pressure 153/68 H 107/61 Pulse Oximetry 92 95 97 10/25/20 20:51 10/25/20 23:15 10/25/20 23:41 Temperature 97.9 F Pulse Rate 90 89 89 Respiratory Rate 22 H 20 30 H Blood Pressure 118/53 L 111/40 L Pulse Oximetry 94 97 92 10/26/20 00:00 10/26/20 02:00 10/26/20 03:05 Temperature Pulse Rate 89 72 63 Respiratory Rate 27 H Blood Pressure Pulse Oximetry 93 98 10/26/20 04:00 10/26/20 06:00 10/26/20 08:00 Temperature 98.1 F 98.8 F Pulse Rate 98 91 76 Respiratory Rate 28 H 18 Blood Pressure 104/52 L 92/5
[2020-10-26 12:15] LABS: Glucose Point of Care 171 (65-105)
[2020-10-26 12:48] LABS: Anion Gap 4 mmol/L (8-16); Blood Urea Nitrogen 39 mg/dL (9-20); Calcium 8.2 mg/dL (8.4-10.2); Carbon Dioxide 32 mmol/L (22-30); Chloride 101 mmol/L (98-107); Estimated CRCL calculation 37 ml/min; Estimated Glomerular Filt Rate 42; Glucose 182 mg/dL (75-110); Potassium 4.1 mmol/L (3.4-5.0); Sodium 137 mmol/L (137-145)
--- NOTE | 2020-10-26 12:55 | PM.CNCAR ---
Assessment and Plan Assessment and plan (1) Flash pulmonary edema: Code(s): J81.0 - Acute pulmonary edema Status: Acute Assessment and Plan: He is still quite active but over the past several days has been outside working for multiple hours at a time. He possibly is becoming ischemic with such activity in this potentially could push him over into acute/flash pulmonary edema. Regardless he is better at this point. Continue IV furosemide for another 24 hours and transition back to oral. Wean oxygen as able. He is satting 99% on 6 L and this can be weaned as able. Continue to record intake and outputs and daily weights. (2) CHF exacerbation: Qualifiers: Heart failure type: combined systolic and diastolic Qualified Code(s): I50.43 - Acute on chronic combined systolic (congestive) and diastolic (congestive) heart failure Code(s): I50.9 - Heart failure, unspecified Status: Acute Assessment and Plan: Continue home regimen including Entresto, rosuvastatin, anticoagulation because of atrial fibrillation, amiodarone, mexiletine, carvedilol. (3) Coronary artery disease: Qualifiers: Coronary Disease-Associated Artery/Lesion type: [place] artery [place] vs. transplanted heart: [place] heart Associated angina: without angina Qualified Code(s): I25.10 - Atherosclerotic heart disease of [place] coronary artery without angina pectoris Code(s): I25.10 - Atherosclerotic heart disease of [place] coronary artery without angina pectoris Status: Acute Assessment and Plan: Continue the above regimen. (4) Cardiomyopathy: Code(s): I42.9 - Cardiomyopathy, unspecified Status: Acute Assessment and Plan: Severe History of Present Illness History of Present Illness Consult date/time: 10/26/20 12:55 Requesting physician: Dewey Infante MD Consult reason: congestive heart failure Reason For Visit: chf exacerbation, acute respiratory failure Narrative: Date of service 10/26/2020 History: Patient is a 79-year-old male history of ischemic cardiomyopathy. Follows with Dr. Miller. He was admitted last month for heart failure. He has ischemic heart disease, atrial and ventricular arrhythmias, previous revascularization and electrophysiology procedures performed here and at [facility]. RCA intervention the remote past, LAD intervention about 20 years ago. Left main disease in 2012 who then underwent a percutaneous revascularization in [facility] of the left main as well as the RCA. Catheterization 2020 did not show any new coronary lesions. Ejection fraction has declined to 20 in 25%. He does have a Bi V device and ablation of his AV node. He presented to this hospital because of acute onset of shortness of breath. He over the last couple of days he has been outside working for multiple hours at a time. Yesterday afternoon though he became suddenly short of breath. He had no associated symptoms of chest pain. No paroxysmal nocturnal dyspnea recently. No palpitations, syncope, presyncope, defibrillations. Because of the acute onset of shortness of breath and hypoxia with oxygen saturations in the 70s despite his 3 L via nasal cannula he came to the hospital for further evaluation. He did require BiPAP therapy in order to maintain his O2 sats. He has been following at a lower a no salt diet as well as watching his fluid intake and weighing himself daily. He is compliant with his medications. With diuresis he has been able to get off of his BiPAP. Is currently setting 95-100% on 6 L via nasal cannula Review of Systems Review of Systems: All systems reviewed & are unremarkable except as noted in HPI and below Constitutional: Constitutional: Reports weakness Eyes: Eyes: Denies blurry vision ENT: Reports Normal hearing present Cardiovascular: Cardiovascular: Denies chest pain Respiratory: Respiratory: Reports dyspnea and Reports dyspnea on
[2020-10-26] MEDS: AMITRIPTYLINE HCL 10 MG TABLET PO (17:56)
[2020-10-26 18:17] LABS: Glucose Point of Care 135 (65-105)
[2020-10-26] MEDS: OMEGA 3 POLYUNSAT FATTY ACIDS 1 GM CAP 2 GM PO (20:57)
[2020-10-27] VITALS (19 sets, daily range): BP systolic 91–114; BP diastolic 45–49; PULSE 55–91; RESP 12–29; TEMP 36.4–36.7; O2SAT 90–100
[2020-10-27] MEDS: PREGABALIN (*CRX) 50 MG CAPSULE 100 MG PO ×3 (05:33→20:43)
[2020-10-27 05:35] LABS: Basophils Percent Auto 0.2 % (0.2-1.2); Eosinophils Percent Auto 0.9 % (0-4.4); Hematocrit 23.2 % (42.0-52.0); Hemoglobin 7.3 g/dL (14.0-18.0); Immature Granulocyte Absolute 0.04 K/mm3 (0.00-0.031); Immature Granulocyte Percent A 0.9 % (0-0.5); Lymphocytes Absolute Auto 1.19 K/mm3 (0.9-3.2); Lymphocytes Percent Auto 25.3 % (18.3-44.2); Mean Corpuscular HGB Conc 31.5 g/dl (32-36); Mean Corpuscular Hemoglobin 36.5 pg (26-34); Mean Platelet Volume 11.3 fl (7.4-10.4); Monocytes Absolute Auto 0.4 K/mm3 (0.1-0.6); Monocytes Percent Auto 8.7 % (2.6-8.5); Platelet Count Result 105 k/mm3 (150-375); Red Cell Distribution Width 16.3 % (11.5-14.5); White Blood Count 4.7 K/mm3 (4.5-10.0)
[2020-10-27 05:56] LABS: Alanine Aminotransferase 13 U/L (4-50); Albumin Level 3.1 g/dL (3.5-5.1); Alkaline Phosphatase 35 U/L (38-126); Anion Gap 3 mmol/L (8-16); Aspartate Amino Transferase 20 U/L (17-59); Bilirubin,Total 0.5 mg/dL (0.2-1.3); Blood Urea Nitrogen 43 mg/dL (9-20); Calcium 8.1 mg/dL (8.4-10.2); Carbon Dioxide 33 mmol/L (22-30); Chloride 103 mmol/L (98-107); Estimated CRCL calculation 33 ml/min; Estimated Glomerular Filt Rate 36; Glucose 104 mg/dL (75-110); Magnesium 2.2 mg/dL (1.6-2.3); Phosphorus 2.5 mg/dL (2.5-4.5); Potassium 3.9 mmol/L (3.4-5.0); Sodium 139 mmol/L (137-145)
[2020-10-27] MEDS: MEXILETINE HCL 150 MG CAPSULE BY MOUTH ×2 (09:34→17:17)
[2020-10-27] MEDS: MULTIVITAMINS THERAPEUTIC TAB (*BKC) 1 TABLET PO (09:34)
[2020-10-27] MEDS: FUROSEMIDE INJ 40 MG/4 ML VIAL IV PUSH ×2 (09:35→17:16)
[2020-10-27] MEDS: FENOFIBRATE NANOCRYSTALLIZED 145 MG TABLET PO (09:35)
[2020-10-27] MEDS: TAMSULOSIN HCL 0.4 MG CAPSULE PO (09:35)
[2020-10-27] MEDS: BACLOFEN 5 MG TABLET PO ×3 (09:35→17:16)
[2020-10-27] MEDS: FINASTERIDE 5 MG TABLET PO (09:35)
[2020-10-27] MEDS: CLOPIDOGREL BISULFATE 75 MG TABLET PO (09:35)
[2020-10-27] MEDS: CYANOCOBALAMIN 500 MCG TABLET 1500 MCG PO (09:35)
[2020-10-27] MEDS: CHOLECALCIFEROL 1,000 UNITS TABLET 2000 UNITS PO (09:36)
[2020-10-27] MEDS: carvediloL 3.125 MG TABLET PO ×2 (09:36→20:43)
[2020-10-27] MEDS: APIXABAN 5 MG TABLET PO ×2 (09:36→17:20)
[2020-10-27] MEDS: metFORMIN HCL XR 500 MG TAB.SR.24H 1000 MG PO ×2 (09:36→17:16)
[2020-10-27] MEDS: AMIODARONE HCL 200 MG TABLET PO (09:37)
[2020-10-27] MEDS: FLUTICASONE/UMECLIDIN/VILANTER 100-62.5-25 MCG ELLIPTA 1 PUFF INHALATION (09:37)
[2020-10-27 09:38] LABS: Glucose Point of Care 138 (65-105)
[2020-10-27] MEDS: ROSUVASTATIN 5 MG TABLET PO (09:41)
[2020-10-27] MEDS: SACUBITRIL/VALSARTAN 12-13 MG TABLET 1 TAB PO ×2 (10:04→17:18)
[2020-10-27 12:16] LABS: Glucose Point of Care 101 (65-105)
--- NOTE | 2020-10-27 13:33 | PM.PNCARD ---
Progress Note: A&P Additional Plan 79-year-old man with: Decompensated congestive heart failure multiple admissions at [facility] for this. Known history of significant ischemic cardiomyopathy and valvular heart disease as well as atrial fibrillation. Patient has responded nicely as he always does to intravenous furosemide. He still has obvious bibasilar rales on physical exam so I am not going to discharge him today. Hopefully this will some better tomorrow and at this point I would hope to be able to discharge him. His heart disease has been worked up extensively here at [place] and at [facility] he does not need any additional cardiac workup to be repeated. Tony Miller MD [facility] Subjective Date/time seen: 10/27/20 13:33 Interval history: 79yo male with AFib and CHF here for SOB and found to have acute respiratory failure. Date of service 10/27/2020: Patient is comfortable wearing nasal cannula oxygen in the bed. Shortness of breath he believes is at baseline. Exam Narrative: Exam Narrative: Pleasant, alert and oriented appears stated age Const: General: comfortable and no acute distress; No confusion Orientation/consciousness: No confusion HENMT: General nose exam: Normal nares present Eyes: Sclera: sclerae normal Neck: Neck: supple and no JVD Chest: Other: No reproducible chest wall pain to palpation Resp: Auscultation: diminished lung sounds Other: Few basilar crackles are heard Cardio: Rate: regular rate Heart sounds: Murmur heart sound present Other: Paced rhythm Skin: General skin exam: normal color Neuro: General: No confusion Cranial nerves: Yes Normal hearing present Cognition (Neuro): normal cognition Speech: normal speech Extrem: General: normal to inspection and no edema Psych: Affect: normal affect Objective Data Vital Signs Vital Signs: Vital Signs - 24 hr 10/26/20 14:00 10/26/20 14:11 10/26/20 16:00 Temperature 36.8 C Pulse Rate 67 91 Respiratory Rate 18 Blood Pressure 84/38 L 105/82 Pulse Oximetry 99 10/26/20 17:15 10/26/20 17:30 10/26/20 18:00 Temperature Pulse Rate 76 Respiratory Rate Blood Pressure Pulse Oximetry 96 98 10/26/20 19:51 10/26/20 20:00 10/26/20 20:57 Temperature 36.5 C Pulse Rate 84 91 83 Respiratory Rate 20 Blood Pressure 96/43 L Pulse Oximetry 91 90 10/26/20 22:00 10/26/20 23:30 10/26/20 23:32 Temperature 36.4 C Pulse Rate 91 90 64 Respiratory Rate 20 20 Blood Pressure 90/54 L Pulse Oximetry 96 91 10/27/20 00:00 10/27/20 02:00 10/27/20 02:50 Temperature Pulse Rate 89 90 81 Respiratory Rate 17 Blood Pressure Pulse Oximetry 96 10/27/20 04:00 10/27/20 06:00 10/27/20 08:00 Temperature 36.4 C 36.6 C Pulse Rate 88 83 90 Respiratory Rate 20 16 Blood Pressure 95/47 L 114/49 L Pulse Oximetry 92 96 10/27/20 09:34 10/27/20 09:36 10/27/20 09:37 Temperature Pulse Rate 84 77 84 Respiratory Rate Blood Pressure Pulse Oximetry 10/27/20 10:00 10/27/20 12:00 Temperature 36.6 C Pulse Rate 78 89 Respiratory Rate 12 Blood Pressure 99/46 L Pulse Oximetry 93 Intake/Output Intake/Output: Intake & Output 10/24/20 10/25/20 10/26/20 10/27/20 23:59 23:59 23:59 23:59 Intake Total 1130 850 Output Total 2225 550 Balance -1095 300 Meds/Results Medications: Active Medications Generic Name Dose Route Start Last Admin Trade Name Freq PRN Reason Stop Dose Admin Acetaminophen 650 mg 10/25/20 21:06 Acetaminophen 325 Mg Tablet PO Q4H PRN Mild Pain (1-3) or Fever Hydrocodone Bitart/Acetaminophen 1 tab 10/25/20 21:06 Hydrocodone/Acetaminophen (*Crx) 5-325 Mg Tablet PO Q4H PRN Pain Rated 4-6 Amiodarone HCl 200 mg 10/26/20 08:00 10/27/20 09:37 Amiodarone Hcl 200 Mg Tablet PO 200 mg DAILY@0800 LAKESHIA Administration Amitriptyline HCl 10 mg
[2020-10-27 16:45] LABS: Glucose Point of Care 135 (65-105)
--- NOTE | 2020-10-27 17:07 | PM.IMPN ---
Progress Note: A&P Assessment and Plan (1) Acute hypoxemic respiratory failure: Code(s): J96.01 - Acute respiratory failure with hypoxia Status: Acute Assessment and Plan: Patietn with acute onset SOB. Patient has hx of flash pulmonary edema. Renal US in November showing mildly elevated left renal arterial velocity proximally, may indicate greater than 50-60% stenosis. Much better with the diuresis. Continue Lasix. Cardiology input appreciated. (2) Flash pulmonary edema: Code(s): J81.0 - Acute pulmonary edema Status: Acute Assessment and Plan: CXR showing diffuse lung disease with BNP 1300. Clinically better with BiPAP and diuresis. Etiology unclear. Good UOP and clinically much better. BP soft so will cut back on lasix frequency. (3) CHF exacerbation: Qualifiers: Heart failure type: combined systolic and diastolic Qualified Code(s): I50.43 - Acute on chronic combined systolic (congestive) and diastolic (congestive) heart failure Code(s): I50.9 - Heart failure, unspecified Status: Acute Assessment and Plan: As above. Echocardiogram in August 2020 showing mild LV systolic dysfunction with EF of 45% and diastolic dysfunction. Currently on Lasix IV with good UOP. Continue Entreasto and Coreg. (4) Diabetes mellitus: Qualifiers: Diabetes mellitus complication status: without complication Diabetes mellitus penitentiary insulin use: without intermediate accountant use Diabetes mellitus type: type 2 Qualified Code(s): E11.9 - Type 2 diabetes mellitus without complications Code(s): E11.9 - Type 2 diabetes mellitus without complications Status: Chronic Assessment and Plan: A1c 5.4 in September 2020. The patient's blood glucose was reviewed on 10/27 Glucose remains well controlled. Continue AccuCheks covering with sliding scale. Hypoglycemia protocol available as needed. Continue current medications. (5) Atrial fibrillation: Qualifiers: Atrial fibrillation type: unspecified Qualified Code(s): I48.91 - Unspecified atrial fibrillation Code(s): I48.91 - Unspecified atrial fibrillation Status: Chronic Assessment and Plan: Paced rhythm now. Heart rate controlled. Currently on Mexilitine and Amio. Continue Coreg. Continue Eliquis. Appreciate Cardilogy input. (6) Thrombocytopenia: Code(s): D69.6 - Thrombocytopenia, unspecified Status: Acute Assessment and Plan: Plt 105K today. Plt count low at times noted by chart review. Recent B12 level normal. Follow for now. (7) Anemia: Code(s): D64.9 - Anemia, unspecified Status: Acute Assessment and Plan: Hgb does run chronically low with a wide range. hgb 9.8 on admission but dropped to 7.3. No evidence of acute blood loss. Doubt hemolysis but consider given his low plt count. Iron studies and B12 normal earlier this month. Follow. Add PPI. (8) Acute kidney injury: Code(s): N17.9 - Acute kidney failure, unspecified Status: Acute Assessment and Plan: Cr up to 1.8 today. [place] related to diuretic therapy. 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 Will decrease lasix to daily. Check renal US. (9) DVT prophylaxis: Code(s): Z29.9 - Encounter for prophylactic measures, unspecified Status: Acute Assessment and Plan: [place] Subjective Date/time seen: 10/27/20 17:07 Interval history: 79yo male with AFib and CHF here for SOB and found to have acute respiratory failure. Able to come off the bipap yesterday but he did wear it last night. Off the bipap this morning and has been doing well. He is back down to 3L O2 which is what he wears chronically. He states he was decreased on his lasix 2-3 months ago. Exam Narrative: Exam Narrative: AF 98.1 94/49 91 14 100% 3L Gen - NARD Chest - bibasilar inspiratory crackles CV - RRR
[2020-10-27] MEDS: AMITRIPTYLINE HCL 10 MG TABLET PO (17:18)
[2020-10-27] MEDS: PANTOPRAZOLE 40 MG TABLET PO (20:43)
[2020-10-27] MEDS: OMEGA 3 POLYUNSAT FATTY ACIDS 1 GM CAP 2 GM PO (20:44)
[2020-10-27 20:45] LABS: Glucose Point of Care 148 (65-105)
[2020-10-28] VITALS (14 sets, daily range): BP systolic 90–106; BP diastolic 42–52; PULSE 70–91; RESP 18–22; TEMP 35.8–36.8; O2SAT 93–97
[2020-10-28 05:45] LABS: Basophils Percent Auto 0.3 % (0.2-1.2); Eosinophils Absolute Auto 0.1 K/mm3 (0-0.3); Eosinophils Percent Auto 1.5 % (0-4.4); Hematocrit 23.5 % (42.0-52.0); Hemoglobin 7.3 g/dL (14.0-18.0); Immature Granulocyte Absolute 0.04 K/mm3 (0.00-0.031); Lymphocytes Absolute Auto 0.92 K/mm3 (0.9-3.2); Lymphocytes Percent Auto 23.5 % (18.3-44.2); Mean Corpuscular HGB Conc 31.1 g/dl (32-36); Mean Corpuscular Hemoglobin 35.8 pg (26-34); Mean Corpuscular Volume 115.2 fl (80-100); Mean Platelet Volume 11.4 fl (7.4-10.4); Monocytes Absolute Auto 0.4 K/mm3 (0.1-0.6); Neutrophils Absolute Auto 2.5 K/mm3 (1.3-6.7); Neutrophils Percent Auto 64.7 % (45.5-73.1); Platelet Count Result 116 k/mm3 (150-375); Red Blood Count 2.04 M/mm3 (4.6-6.20); Red Cell Distribution Width 15.7 % (11.5-14.5); White Blood Count 3.9 K/mm3 (4.5-10.0)
[2020-10-28 05:51] LABS: Albumin Level 3.2 g/dL (3.5-5.1); Anion Gap 2 mmol/L (8-16); Blood Urea Nitrogen 39 mg/dL (9-20); Calcium 8.5 mg/dL (8.4-10.2); Carbon Dioxide 34 mmol/L (22-30); Chloride 101 mmol/L (98-107); Estimated CRCL calculation 39 ml/min; Estimated Glomerular Filt Rate 45; Glucose 108 mg/dL (75-110); Lactate Dehydrogenase 382 U/L (313-618); Magnesium 2.1 mg/dL (1.6-2.3); Phosphorus 2.4 mg/dL (2.5-4.5); Sodium 137 mmol/L (137-145)
[2020-10-28] MEDS: PREGABALIN (*CRX) 50 MG CAPSULE 100 MG PO ×2 (06:22→13:22)
[2020-10-28 08:33] LABS: Glucose Point of Care 160 (65-105)
[2020-10-28] MEDS: carvediloL 3.125 MG TABLET PO (10:14)
[2020-10-28] MEDS: ROSUVASTATIN 5 MG TABLET PO (10:14)
[2020-10-28] MEDS: SACUBITRIL/VALSARTAN 12-13 MG TABLET 1 TAB PO ×2 (10:14→18:03)
[2020-10-28] MEDS: FENOFIBRATE NANOCRYSTALLIZED 145 MG TABLET PO (10:15)
[2020-10-28] MEDS: APIXABAN 5 MG TABLET PO ×2 (10:15→18:01)
[2020-10-28] MEDS: metFORMIN HCL XR 500 MG TAB.SR.24H 1000 MG PO ×2 (10:15→18:02)
[2020-10-28] MEDS: CHOLECALCIFEROL 1,000 UNITS TABLET 2000 UNITS PO (10:15)
[2020-10-28] MEDS: MULTIVITAMINS THERAPEUTIC TAB (*BKC) 1 TABLET PO (10:15)
[2020-10-28] MEDS: BACLOFEN 5 MG TABLET PO ×3 (10:15→18:02)
[2020-10-28] MEDS: CYANOCOBALAMIN 500 MCG TABLET 1500 MCG PO (10:16)
[2020-10-28] MEDS: TAMSULOSIN HCL 0.4 MG CAPSULE PO (10:16)
[2020-10-28] MEDS: FINASTERIDE 5 MG TABLET PO (10:16)
[2020-10-28] MEDS: CLOPIDOGREL BISULFATE 75 MG TABLET PO (10:16)
[2020-10-28] MEDS: MEXILETINE HCL 150 MG CAPSULE BY MOUTH ×2 (10:16→18:03)
[2020-10-28] MEDS: PANTOPRAZOLE 40 MG TABLET PO (10:17)
[2020-10-28] MEDS: FLUTICASONE/UMECLIDIN/VILANTER 100-62.5-25 MCG ELLIPTA 1 PUFF INHALATION (10:17)
[2020-10-28] MEDS: FUROSEMIDE INJ 40 MG/4 ML VIAL IV PUSH (10:17)
[2020-10-28] MEDS: AMIODARONE HCL 200 MG TABLET PO (10:17)
[2020-10-28 12:11] LABS: Glucose Point of Care 194 (65-105)
--- NOTE | 2020-10-28 14:27 | PM.PNCARD ---
Progress Note: A&P Assessment and Plan (1) Flash pulmonary edema: Code(s): J81.0 - Acute pulmonary edema Status: Acute Assessment and Plan: He is still quite active but over the past several days has been outside working for multiple hours at a time. He possibly is becoming ischemic with such activity in this potentially could push him over into acute/flash pulmonary edema. Regardless he is better at this point. DC IV Lasix. Restart home dose furosemide 40 mg p.o. b.i.d.. Okay for discharge. (2) CHF exacerbation: Qualifiers: Heart failure type: combined systolic and diastolic Qualified Code(s): I50.43 - Acute on chronic combined systolic (congestive) and diastolic (congestive) heart failure Code(s): I50.9 - Heart failure, unspecified Status: Acute Assessment and Plan: Continue home regimen including Entresto, rosuvastatin, anticoagulation because of atrial fibrillation, amiodarone, mexiletine, carvedilol. (3) Coronary artery disease: Qualifiers: Coronary Disease-Associated Artery/Lesion type: rampart artery [place] vs. transplanted heart: rampart heart Associated angina: without angina Qualified Code(s): I25.10 - Atherosclerotic heart disease of rampart coronary artery without angina pectoris Code(s): I25.10 - Atherosclerotic heart disease of rampart coronary artery without angina pectoris Status: Acute Assessment and Plan: Continue the above regimen. (4) Cardiomyopathy: Code(s): I42.9 - Cardiomyopathy, unspecified Status: Acute Assessment and Plan: Severe Subjective Date/time seen: 10/28/20 14:27 Interval history: 79yo male with AFib and CHF here for SOB and found to have acute respiratory failure. Date of service 10/28/2020: Patient is comfortable wearing nasal cannula oxygen in the bed. Feels back to baseline. No shortness of breath at rest and no chest pain. Wants to go home Review of Systems Review of Systems: All systems reviewed & are unremarkable except as noted in HPI and below Constitutional: Constitutional: Denies fatigue, Denies headache(s) and Reports weakness Eyes: Eyes: Denies blurry vision ENT: Reports Normal hearing present, Denies headache(s), Denies lip swelling and Denies neck pain Cardiovascular: Cardiovascular: Denies chest pain, Reports dyspnea and Reports dyspnea on exertion Respiratory: Respiratory: Reports dyspnea and Reports dyspnea on exertion Gastrointestinal: Gastrointestinal: Denies abdominal pain Genitourinary: Genitourinary: Denies dysuria and Denies flank pain Musculoskeletal: Musculoskeletal: Denies neck pain Integumentary/Breasts: Skin/Breast: Denies dry skin Neurologic: Reports Normal hearing present, Denies confusion, Denies headache(s) and Reports weakness Psychiatric: Psychiatric: Denies anxiety and Denies confusion Endocrine: Endocrine: Denies fatigue and Denies flushing Hematologic/Lymphatic: Hematologic/Lymphatic: Denies easy bleeding Allergic/Immunologic: Allergic/Immunologic: Denies GI upset with certain foods and Denies lip swelling Exam Narrative: Exam Narrative: Pleasant, alert and oriented appears stated age Const: General: comfortable and no acute distress; No confusion Orientation/consciousness: No confusion HENMT: General nose exam: Normal nares present Eyes: Sclera: sclerae normal Neck: Neck: supple and no JVD Chest: Other: No reproducible chest wall pain to palpation Resp: Auscultation: diminished lung sounds Other: Few basilar crackles are heard Cardio: Rate: regular rate Heart sounds: Murmur heart sound present Other: Paced rhythm Skin: General skin exam: normal color Neuro: General: No confusion Cranial nerves: Yes Normal hearing present Cognition (Neuro): normal cognition Speech: normal speech Extrem: General: normal to inspection and no edema Psych: Affect: normal affect Objective Data Vital Signs Vital
--- NOTE | 2020-10-28 16:11 | PM.DS ---
DS: Admitting Diagnosis Admitting Diagnosis Admitting Diagnosis: Shortness of breath DS: Discharge Diagnosis Discharge Diagnosis (1) Acute hypoxemic respiratory failure: Code(s): J96.01 - Acute respiratory failure with hypoxia Status: Acute Assessment and Plan: Patient with acute onset SOB requiring BiPAP. Patient has hx of flash pulmonary edema. Renal US in November showing mildly elevated left renal arterial velocity proximally, may indicate greater than 50-60% stenosis. Much better with the diuresis. Able to be weaned to his baseline 3L nasal cannula. (2) Flash pulmonary edema: Code(s): J81.0 - Acute pulmonary edema Status: Acute Assessment and Plan: CXR showing diffuse lung disease with BNP 1300. Clinically better with BiPAP and diuresis. Etiology unclear. Good UOP with the diuresis and clinically much better. (3) CHF exacerbation: Qualifiers: Heart failure type: combined systolic and diastolic Qualified Code(s): I50.43 - Acute on chronic combined systolic (congestive) and diastolic (congestive) heart failure Code(s): I50.9 - Heart failure, unspecified Status: Acute Assessment and Plan: As above. Echocardiogram in August 2020 showing mild LV systolic dysfunction with EF of 45% and diastolic dysfunction. Treated with Lasix IV with good UOP. We continued his Entreasto and Coreg. (4) Diabetes mellitus: Qualifiers: Diabetes mellitus type: type 2 Diabetes mellitus director long term care insulin use: without director long term care use Diabetes mellitus complication status: without complication Qualified Code(s): E11.9 - Type 2 diabetes mellitus without complications Code(s): E11.9 - Type 2 diabetes mellitus without complications Status: Chronic Assessment and Plan: A1c 5.4 in September 2020. The patient's blood glucose was monitored closely. Glucose remained well controlled. Monitored with AccuCheks covering with sliding scale. Hypoglycemia protocol was available as needed. (5) Atrial fibrillation: Qualifiers: Atrial fibrillation type: unspecified Qualified Code(s): I48.91 - Unspecified atrial fibrillation Code(s): I48.91 - Unspecified atrial fibrillation Status: Chronic Assessment and Plan: Paced rhythm now. Heart rate remained well controlled. Currently on Mexilitine and Amiodarone which were continued. We continued his Coreg and Eliquis. (6) Thrombocytopenia: Code(s): D69.6 - Thrombocytopenia, unspecified Status: Acute Assessment and Plan: Platelet count dropped to 105K. Plt count low at times noted by chart review. Recent B12 level normal. Repeat level increased to 116K. (7) Anemia: Code(s): D64.9 - Anemia, unspecified Status: Acute Assessment and Plan: Hgb does run chronically low with a wide range with macrocytosis. Hgb 9.8 on admission but dropped to 7.3. No evidence of acute blood loss. Doubt hemolysis but consider given his low plt count. Iron studies and B12 normal earlier this month. Repeat Hgb stable. Repeat CBC as outpatient. (8) Acute kidney injury: Code(s): N17.9 - Acute kidney failure, unspecified Status: Acute Assessment and Plan: Cr up to 1.8 today. [place] related to diuretic therapy. 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 We decreased lasix and Cr improved. Renal US showing a 3.9cm right renal cyst otherwise normal appearing kidneys. DS: Summary Hospital Course Reason for hospitalization: 79-year-old male who presents with shortness of breath and found to have acute hypoxic respiratory failure. Please see H&P for details. Hospital Course: Please see above for details of hospital course. Time Spent with Patient Time attestation: Total time spent providing and/or coordinating discharge services: 38 minutes Time spent: Greater than 30 minutes Exam Narrative: Ex
[2020-10-28 16:56] LABS: Glucose Point of Care 104 (65-105)
[2020-10-28] MEDS: FUROSEMIDE 40 MG TABLET PO (18:02)
[2020-10-28] MEDS: AMITRIPTYLINE HCL 10 MG TABLET PO (18:04)
[2020-10-31 20:41] LABS: Albumin 2.7 g/dL (3.8-4.8); Alpha 1 Globulin 0.5 g/dL (0.2-0.3); Alpha 2 Globulin 0.8 g/dL (0.5-0.9); Beta 1 Globulin 0.5 g/dL (0.4-0.6); Gamma Globulin 0.6 g/dL (0.8-1.7); Protein, Total 5.5 g/dL (6.1-8.1)
--- NOTE | 2020-11-01 12:09 | PC.NURSE ---
SPEP- M spike is too small to quantitate. Dr. Caity dunne.
[2020-11-04 06:10] LABS: Creatinine, Random Urine 63 mg/dL (20-320); Total Protein/Creatinine Ratio 810 mg/g creat (22-128)
--- NOTE | 2020-11-04 13:28 | PC.NURSE ---
UPEP shows no abn peaks. Dr. Caity dunne.
== END 2020-10-28 18:13 | disposition home or self-care (01) | DRG 189 ==
LOC: ANHED 19:03 → ANHIMU 21:40
PROVIDERS: Admitting Provider Internal Medicine; Emergency Provider Emergency Medicine; PCP Internal Medicine; Visit Provider Internal Medicine
DX: J96.21 Acute and chronic respiratory failure with hypoxia (principal); I50.43 Acute on chronic combined systolic (congestive) and diastolic (congestive) heart failure; N17.9 Acute kidney failure, unspecified; D69.6 Thrombocytopenia, unspecified; G47.33 Obstructive sleep apnea (adult) (pediatric); I25.10 Atherosclerotic heart disease of native coronary artery without angina pectoris; E11.9 Type 2 diabetes mellitus without complications; I11.0 Hypertensive heart disease with heart failure; E78.5 Hyperlipidemia, unspecified; I25.5 Ischemic cardiomyopathy; I48.91 Unspecified atrial fibrillation; D64.9 Anemia, unspecified; Z99.81 Dependence on supplemental oxygen; Z79.01 Long term (current) use of anticoagulants; Z79.899 Other long term (current) drug therapy; Z87.891 Personal history of nicotine dependence; Z95.2 Presence of prosthetic heart valve; Z95.5 Presence of coronary angioplasty implant and graft; Z95.810 Presence of automatic (implantable) cardiac defibrillator
CPT/HCPCS: 36415; 36600; 71045; 71101; 76775; 80048; 80053; 80069; 82375; 82570; 82805; 82948; 83050; 83615; 83735; 83880; 84100; 84155; 84156; 84165; 84166; 84443; 84484; 85025; 85610; 85730; 93005; 94002; 94003; 96374; 96376; 97161; 97165; 99285; A9270; G0378; J1940

== ENCOUNTER 2020-11-12 09:36 | Outpatient (CLI) | payer MEDICARE, SELFPAY ==
[2020-11-12 10:13] LABS: Basophils Percent Auto 0.3 % (0.2-1.2); Eosinophils Absolute Auto 0.1 K/mm3 (0-0.3); Hematocrit 26.7 % (42.0-52.0); Hemoglobin 8.4 g/dL (14.0-18.0); Immature Granulocyte Absolute 0.01 K/mm3 (0.00-0.031); Immature Granulocyte Percent A 0.3 % (0-0.5); Immature Platelet Fraction Pct 6.1 % (0.9-11.2); Lymphocytes Absolute Auto 1.26 K/mm3 (0.9-3.2); Lymphocytes Percent Auto 41.4 % (18.3-44.2); Mean Corpuscular HGB Conc 31.5 g/dl (32-36); Mean Corpuscular Hemoglobin 35.7 pg (26-34); Mean Corpuscular Volume 113.6 fl (80-100); Mean Platelet Volume 10.9 fl (7.4-10.4); Monocytes Absolute Auto 0.5 K/mm3 (0.1-0.6); Monocytes Percent Auto 17.8 % (2.6-8.5); Neutrophils Absolute Auto 1.2 K/mm3 (1.3-6.7); Neutrophils Percent Auto 38.2 % (45.5-73.1); Platelet Count Result 156 k/mm3 (150-375); Red Blood Count 2.35 M/mm3 (4.6-6.20)
[2020-11-12 11:04] LABS: Band Neutrophils Percent 2 % (0-6); Lymphocytes Absolute Manual 1.23 K/mm3 (1.1-4.5); Monocytes Absolute Manual 0.48 K/mm3 (0.1-0.90); Monocytes Percent Manual 16 % (3-9); Neutrophils Absolute Manual 1.29 K/mm3 (1.3-6.7); Neutrophils Percent Manual 41 % (46-73); Total Cells Counted 100
[2020-11-12 11:05] LABS: Platelet Estimate Adequate (Adequate)
[2020-11-12 11:06] LABS: Hypochromasia 1+ (NORMAL); Ovalocytes 1+ (NORMAL)
== END 2020-11-12 09:37 | disposition home or self-care (01) ==
LOC: ANHLAB 09:38
PROVIDERS: PCP Internal Medicine; Visit Provider Internal Medicine
DX: D64.9 Anemia, unspecified (principal)
CPT/HCPCS: 36415; 85025; 85055

== ENCOUNTER → 2020-11-20 00:59 | Outpatient (CLI) | payer MEDICARE, SELFPAY ==
[2020-11-20 20:53] LABS: SARS-CoV-2 RNA PCR Negative
== END ==
PROVIDERS: Radiology Diagnostic Radiology; PCP Internal Medicine; Visit Provider Internal Medicine Hematology & Oncology
DX: Z01.812 Encounter for preprocedural laboratory examination (principal); Z20.822 Contact with and (suspected) exposure to COVID-19
CPT/HCPCS: C9803; U0003; U0005

== ENCOUNTER 2020-11-23 03:14 | Day surgery (SDC) | payer MEDICARE, SELFPAY ==
[2020-11-22 16:00] VITALS: BMI 30.7
--- NOTE | ~2020-11-23 | BM_ITS ---
EXAMINATION: CCL bone marrow asp w bx diag DATE: 11/23/2020 11:22 INDICATION: Pancytopenia. TECHNIQUE: A time-out was performed to verify the patient's name, date of , and procedure to b e performed. The procedure including the risks, benefits, and alternatives was discussed with the pat ient. Risks discussed included bleeding and infection. The patient understood the risks and agreed to proceed. The skin overlying the left ilium was prepped and draped in usual sterile fashion. Anesth etic was administered with 1% lidocaine subcutaneously. 50 mcg fentanyl IV was given for pain control . An 11 gauge needle was inserted into the ilium with fluoroscopic guidance. Bone marrow was aspirat ed. An 8 gauge needle was then inserted into the ilium with fluoroscopic guidance. A core bone marrow biopsy was obtained. There were no immediate complications. Fluoroscopy exposure time was 0.0 minute s. The total number of images was 8. FINDINGS: Real-time fluoroscopy demonstrates a marker overlying the left posterior superior iliac spi ne. IMPRESSION: 1. Fluoro-guided bone marrow aspiration. 2. Fluoro-guided bone marrow core biopsy. Reviewed, dictated and finalized at location A.
[2020-11-23 07:45] VITALS: BP 110/61; PULSE 83; RESP 16; TEMP 36.3; O2SAT 100
[2020-11-23 07:55] LABS: Basophils Percent Auto 0.4 % (0.2-1.2); Eosinophils Absolute Auto 0.1 K/mm3 (0-0.3); Eosinophils Percent Auto 2.5 % (0-4.4); Hemoglobin 8.8 g/dL (14.0-18.0); Immature Granulocyte Absolute 0.02 K/mm3 (0.00-0.031); Immature Granulocyte Percent A 0.7 % (0-0.5); Lymphocytes Absolute Auto 0.98 K/mm3 (0.9-3.2); Mean Corpuscular HGB Conc 31.4 g/dl (32-36); Mean Corpuscular Hemoglobin 36.1 pg (26-34); Mean Corpuscular Volume 114.8 fl (80-100); Mean Platelet Volume 10.8 fl (7.4-10.4); Monocytes Absolute Auto 0.5 K/mm3 (0.1-0.6); Monocytes Percent Auto 16.1 % (2.6-8.5); Neutrophils Absolute Auto 1.3 K/mm3 (1.3-6.7); Neutrophils Percent Auto 45.3 % (45.5-73.1); Platelet Count Result 125 k/mm3 (150-375); Red Blood Count 2.44 M/mm3 (4.6-6.20); Red Cell Distribution Width 16.2 % (11.5-14.5); White Blood Count 2.8 K/mm3 (4.5-10.0)
[2020-11-23 08:07] LABS: Prothrombin Time 14.2 Seconds (11.1-14.7)
[2020-11-23 09:30] VITALS: BP 106/64; PULSE 83; RESP 13; O2SAT 98
[2020-11-23 09:45] VITALS: BP 98/58; PULSE 90; RESP 16; O2SAT 98
[2020-11-23 10:00] VITALS: BP 92/59; PULSE 90; RESP 14; O2SAT 96
[2020-11-23 10:15] VITALS: BP 95/59; PULSE 90; RESP 15; O2SAT 98
== END 2020-11-23 11:15 | disposition home or self-care (01) ==
PROVIDERS: Radiology Diagnostic Radiology; PCP Internal Medicine; Visit Provider Internal Medicine Hematology & Oncology
DX: D61.818 Other pancytopenia (principal); E11.9 Type 2 diabetes mellitus without complications; Z79.84 Long term (current) use of oral hypoglycemic drugs; E78.5 Hyperlipidemia, unspecified; I11.0 Hypertensive heart disease with heart failure; I50.20 Unspecified systolic (congestive) heart failure; I25.10 Atherosclerotic heart disease of native coronary artery without angina pectoris; Z95.5 Presence of coronary angioplasty implant and graft; J96.11 Chronic respiratory failure with hypoxia; I48.91 Unspecified atrial fibrillation; Z79.01 Long term (current) use of anticoagulants; Z79.02 Long term (current) use of antithrombotics/antiplatelets; G47.33 Obstructive sleep apnea (adult) (pediatric); I25.5 Ischemic cardiomyopathy; Z95.0 Presence of cardiac pacemaker; Z87.891 Personal history of nicotine dependence
CPT/HCPCS: 36415; 38222; 85025; 85610; 88184; 88185; 88305; 88311; 88312; 88313; 88341; 88342; C9803; J3010; J7040; U0003; U0005

== ENCOUNTER 2020-11-25 10:55 | Outpatient (CLI) | payer MEDICARE, SELFPAY ==
--- NOTE | ~2020-11-25 | US_ITS ---
US abdomen complete EXAMINATION: US Abdomen Complete INDICATION: Pancytopenia PROCEDURE: Realtime High Resolution abdomen ultrasound. COMPARISON: No prior studies for comparison FINDINGS: Gallbladder within normal limits. No gallstones, pericholecystic fluid, gallbladder wall t hickening or biliary dilatation. Common bile duct measures 2 mm. Liver echotexture within normal limits without focal mass. Pancreas within normal limits. Pancreati c tail is obscured by bowel gas. Spleen is unremarkeable. Renal echotexture is within normal limits bilaterally without hydronephrosis, contour deforming mass or renal stone. Right kidney measures 12.7 cm. Left kidney measures 11.9 cm. There is a right renal cyst measuring 4 cm. Visualized aspects of the aorta and IVC are within normal limits. Portal vein is patent. No sonograph ic David's sign indicated by the technologist. IMPRESSION: 1: Right renal cyst measuring 4 cm. Otherwise, unremarkable abdominal ultrasound. Reviewed, dictated and finalized at location B. IMPRESSION: 1: Right renal cyst measuring 4 cm. Otherwise, unremarkable abdominal ultrasoun d.
== END 2020-11-25 10:56 | disposition home or self-care (01) ==
PROVIDERS: PCP Internal Medicine; Visit Provider Internal Medicine Hematology & Oncology
DX: D61.818 Other pancytopenia (principal); N28.1 Cyst of kidney, acquired
CPT/HCPCS: 76700

== ENCOUNTER 2020-12-07 14:37 | Emergency (ER) | payer MEDICARE, SELFPAY ==
--- NOTE | ~2020-12-07 | XR_ITS ---
XR chest 2V DATE: 12/07/2020 16:36 INDICATION: Dizziness. Nausea. History of atrial fibrillation, coronary artery disease, congestive he art failure, COPD. TECHNIQUE: 2 views COMPARISON: portable AP chest FINDINGS: Left transvenous pacemaker device with leads overlying right atrium, right ventricle and co ronary sinus. Heart size appears within normal limits considering magnification associated with AP pr ojection. There is aortic arch calcification. Resolution of pulmonary vascular congestion and redistribution since . There is patchy infiltrate and/atelectasis at the lung bases, primarily on the left. Degenerative spurring and mild dextro scoliosis of the thoracic spine. IMPRESSION: Patchy infiltrate or atelectasis at the lung bases, greater on the left Reviewed, dictated and finalized at location A.
[2020-12-07 14:45] VITALS: BP 113/60; PULSE 90; RESP 14; TEMP 36.4; O2SAT 96
--- NOTE | 2020-12-07 14:50 | PC.NURSE ---
s/p nausea and light-headedness since 1000 this am, denies fall/V/D. Hx anemia and saw hem/onc in office two weeks ago, had bone marrow analysis, we couldn't understand the results . Denies sick contacts, afebrile
--- NOTE | 2020-12-07 15:05 | PC.NURSE ---
Pt wears 3L NC at baseline, hx multiple episodes flash pulmonary edema. Currently denies SOB, non-labored resps and speaks full clear sentences
--- NOTE | 2020-12-07 15:15 | ED.GENADULT ---
HPI - General Adult General Chief complaint: Nausea/Vomiting/Diarrhea Stated complaint: nausea Source: patient History of Present Illness HPI narrative: Patient is a 80 y/o male complaining of moderate dizziness and nausea starting approximately 4 hours ago at about 11:00 AM. He states that lying down helps with the dizziness somewhat. He has no room spinning sensation. He did not pass out. He has no headache, abdominal pain, vomiting or diarrhea. Related Data Home Medications Medication Instructions Recorded Confirmed finasteride 5 mg tablet 5 mg PO DAILY 09/10/19 11/22/20 fenofibric acid (choline) 135 mg 135 mg PO DAILY 09/11/19 11/22/20 capsule,delayed release furosemide 40 mg tablet 40 mg PO BID 09/11/19 11/22/20 multivitamin 1 cap PO DAILY 09/11/19 11/22/20 omega3-dha 200 mg-epa 300 mg-othr 2 cap PO HS 09/11/19 11/22/20 om3 100 mg-fish oil 1,000 mg capsule Eliquis 5 mg PO BID 12/18/19 11/22/20 clopidogrel [Plavix] 75 mg PO DAILY #0 12/19/19 11/22/20 cyanocobalamin (vitamin B-12) 1,500 mcg PO DAILY 12/19/19 11/22/20 [Vitamin B-12] coenzyme Q10 [CoQ-10] 200 mg PO DAILY 12/21/19 11/22/20 rosuvastatin 5 mg tablet 5 mg PO DAILY 05/07/20 11/22/20 amitriptyline 10 mg PO QPM 07/06/20 11/22/20 mexiletine 150 mg BYMOUTH BID 09/13/20 11/22/20 tamsulosin 0.4 mg PO DAILY 09/13/20 11/22/20 amiodarone 200 mg tablet 200 mg PO DAILY tablet 10/04/20 11/22/20 carvedilol 3.125 mg tablet 3.125 mg PO Q12H 10/04/20 11/22/20 sacubitril 24 mg-valsartan 26 mg 0.5 tablet PO BID tablet 10/04/20 11/22/20 tablet Trelegy Ellipta 1 inh INHALATION DAILY 10/25/20 11/22/20 cholecalciferol (vitamin D3) 2,000 mcg PO DAILY 11/22/20 11/22/20 roflumilast [Daliresp] 250 mcg PO DAILY 11/22/20 11/22/20 Allergies Allergy/AdvReac Type Severity Reaction Status Date / Time No Known Allergies Allergy Verified 12/07/20 14:49 Review of Systems Constitutional: Constitutional: Denies chills, Denies fever(s), Denies headache(s) and Denies weakness Eyes: Eyes: Denies blurry vision ENT: Denies headache(s) and Denies neck pain Cardiovascular: Cardiovascular: Denies chest pain and Denies dyspnea Respiratory: Respiratory: Denies cough and Denies dyspnea Gastrointestinal: Gastrointestinal: Denies abdominal pain, Denies diarrhea, Reports nausea and Denies vomiting Genitourinary: Genitourinary: Denies hematuria and Denies dysuria Musculoskeletal: Musculoskeletal: Denies back pain and Denies neck pain Neurologic: Reports dizziness, Denies headache(s) and Denies weakness [facility] Past Medical History Medical History Atrial fibrillation BPH (benign prostatic hyperplasia) CHF (congestive heart failure) Echocardiogram August 2020: EF of 45%, diastolic dysfunction with elevated left heart pressures, mild left atrial enlargement Chronic anemia Chronic hypoxemic respiratory failure Coronary artery disease Diabetes mellitus Essential hypertension Hyperlipidemia Ischemic cardiomyopathy EF of 20-25% on cardiac catheterization June 2020 Megaloblastic anemia NICOLE (obstructive sleep apnea) Vitamin D deficiency Surgical History Surgical History History of angioplasty History of aortic valve replacement History of cardiac catheterization Right coronary intervention in the remote past, LAD intervention about 20 years ago. Repeat catheterization 2017 at [facility] with mid RCA intervention, catheterization June 2020 demonstrated EF of 20-25% with no new coronary artery occlusions History of coronary artery stent placement 2-3 History of lumbar laminectomy Hx of atrioventricular node ablation (~2018) [facility] Presence of biventricular AICD (~12/2019) S/P biventricular cardiac pacemaker procedure Status post ablation of ventricular arrhythmia (~05/2020) [facility] Family History Family History (Reviewed 12/07/20 @ 15:19 by Natalie
[2020-12-07] MEDS: SODIUM CHLORIDE 0.9% IV 1,000 ML 999 ML IV CONT (15:32)
[2020-12-07] MEDS: ONDANSETRON INJ 4 MG/2 ML VIAL IV PUSH (15:33)
[2020-12-07 15:39] LABS: Basophils Percent Auto 0.2 % (0.2-1.2); Eosinophils Percent Auto 0.5 % (0-4.4); Hematocrit 26.2 % (42.0-52.0); Hemoglobin 8.2 g/dL (14.0-18.0); Immature Granulocyte Absolute 0.02 K/mm3 (0.00-0.031); Immature Granulocyte Percent A 0.5 % (0-0.5); Lymphocytes Percent Auto 19.9 % (18.3-44.2); Mean Corpuscular HGB Conc 31.3 g/dl (32-36); Mean Corpuscular Volume 114.9 fl (80-100); Mean Platelet Volume 11.2 fl (7.4-10.4); Monocytes Absolute Auto 0.3 K/mm3 (0.1-0.6); Monocytes Percent Auto 7.9 % (2.6-8.5); Neutrophils Absolute Auto 2.9 K/mm3 (1.3-6.7); Platelet Count Result 127 k/mm3 (150-375); Red Blood Count 2.28 M/mm3 (4.6-6.20); Red Cell Distribution Width 15.9 % (11.5-14.5)
[2020-12-07 16:07] LABS: Alanine Aminotransferase 19 U/L (4-50); Albumin Level 3.7 g/dL (3.5-5.1); Alkaline Phosphatase 53 U/L (38-126); Anion Gap 2 mmol/L (8-16); Aspartate Amino Transferase 35 U/L (17-59); Bilirubin,Total 0.4 mg/dL (0.2-1.3); Blood Urea Nitrogen 30 mg/dL (9-20); Calcium 8.7 mg/dL (8.4-10.2); Carbon Dioxide 33 mmol/L (22-30); Chloride 102 mmol/L (98-107); Estimated CRCL calculation 55 ml/min; Estimated Glomerular Filt Rate 58; Glucose 150 mg/dL (75-110); Lipase 40 U/L (23-300); Potassium 4.2 mmol/L (3.4-5.0); Sodium 137 mmol/L (137-145)
--- NOTE | 2020-12-07 16:45 | PC.NURSE ---
Dr. Lal at bedside to discuss dispo, f/u instructions. Non-labored respirations, on baseline 3L NC. Denies pain or nausea
[2020-12-07 16:46] VITALS: PULSE 90; RESP 17; O2SAT 99
== END 2020-12-07 17:22 | disposition home or self-care (01) ==
PROVIDERS: Emergency Provider Emergency Medicine; PCP Internal Medicine
DX: R42 Dizziness and giddiness (principal); R11.0 Nausea; D61.818 Other pancytopenia; Z87.891 Personal history of nicotine dependence; I48.91 Unspecified atrial fibrillation; I11.0 Hypertensive heart disease with heart failure; I50.9 Heart failure, unspecified; E11.9 Type 2 diabetes mellitus without complications; I25.10 Atherosclerotic heart disease of native coronary artery without angina pectoris; G47.30 Sleep apnea, unspecified; N40.0 Benign prostatic hyperplasia without lower urinary tract symptoms
CPT/HCPCS: 36415; 71046; 80053; 83690; 85025; 85055; 96361; 96374; 99284; J2405; J7030

== ENCOUNTER 2021-03-08 14:46 | Observation (INO) | payer MEDICARE, SELFPAY ==
[2021-03-08] VITALS (14 sets, daily range): BP systolic 101–132; BP diastolic 51–82; PULSE 89–94; RESP 15–34; TEMP 36.1–36.7; O2SAT 88–100; BMI 33.7
--- NOTE | ~2021-03-08 | XR_ITS ---
EXAMINATION: XR chest 1V portable DATE: 03/08/2021 16:08 INDICATION: Dyspnea TECHNIQUE: frontal view of the chest was obtained. COMPARISON: Chest radiograph dated 12/07/2020 FINDINGS: Bilateral increased interstitial pattern with perihilar and lower lung predominance and additional ai rspace opacities in the left lower lung zone and right infrahilar region. Blunting at the left costop hrenic angle consistent with small left pleural effusion. The cardiomediastinal silhouette is normal. Three lead pacemaker/AICD seen with leads projecting over the expected locations of the right atrial appendage, apex of the right ventricle and overlying the left ventricle likely having traversed the coronary sinus. IMPRESSION: 1. Lateral interstitial and airspace opacities with perihilar and lower lung predominance most likely pulmonary edema although differential includes pneumonia. 2. Small left pleural effusion. Reviewed, dictated and finalized at location A. IMPRESSION: 1. Lateral interstitial and airspace opacities with perihilar and lower lung pr edominance most likely pulmonary edema although differential includes pneumonia . 2. Small left pleural effusion.
--- NOTE | 2021-03-08 14:46 | ECG_ITS ---
Measurements Intervals [place] Rate: 109 P: 23 NV: 167 QRS: 174 QRSD: 164 T: 9 QT: 411 QTc: 554 Interpretive Statements ELECTRONIC ATRIAL PACEMAKER ELECTRONIC VENTRICULAR PACEMAKER BASELINE ARTIFACT- II, III, AVR, AVF, V1, V3-V6 NO FURTHER INTERPRETATION IS POSSIBLE ATYPICAL ECG Electronically Signed On 03-08-2021 14:52:18 CDT by Sanya Stewart D.O.
--- NOTE | 2021-03-08 14:47 | ED.SOB ---
HPI - SOB/Dyspnea General Chief Complaint: Shortness of Breath/Dyspnea Stated Complaint: RESPIRATORY DISTRESS Source: EMS Mode of arrival: EMS Limitations: clinical condition History of Present Illness HPI Narrative: The patient is an 79 year-old male with a PMH of NICOLE, ischemic cardiomyopathy, chronic hypoxic respiratory failure on home O2 3 L who presented to who presented to the emergency department for evaluation of acute onset shortness of breath. Patient has a history of flash pulmonary edema with several visits to this emergency department in the past for this condition. Patient began to feel acutely short of breath this afternoon, oxygen saturation 70% per EMS. Patient was given DuoNeb treatment, magnesium, Solu-Medrol and placed on CPAP for transport. Patient presents with CPAP ongoing, tachycardic, full respiratory distress. He is awake, able to nod yes or no to questions. Nods no to chest pain. Nods yes to shortness of breath. Per chart review, patient seen at this facility multiple times for this condition. Of note, patient does have a current contact who is positive for Covid. Patient has been afebrile, does have a pending Covid test. Related Data Home Medications Medication Instructions Recorded Confirmed finasteride 5 mg tablet 5 mg PO DAILY 09/10/19 03/01/21 fenofibric acid (choline) 135 mg 135 mg PO DAILY 09/11/19 03/01/21 capsule,delayed release furosemide 40 mg tablet 40 mg PO BID 09/11/19 03/01/21 multivitamin 1 cap PO DAILY 09/11/19 03/01/21 omega3-dha 200 mg-epa 300 mg-othr 2 cap PO HS 09/11/19 03/01/21 om3 100 mg-fish oil 1,000 mg capsule Eliquis 5 mg PO BID 12/18/19 03/01/21 clopidogrel [Plavix] 75 mg PO DAILY #0 12/19/19 03/01/21 cyanocobalamin (vitamin B-12) 1,500 mcg PO DAILY 12/19/19 03/01/21 [Vitamin B-12] coenzyme Q10 [CoQ-10] 200 mg PO DAILY 12/21/19 03/01/21 rosuvastatin 5 mg tablet 5 mg PO DAILY 05/07/20 03/01/21 mexiletine 150 mg BYMOUTH BID 09/13/20 03/01/21 amiodarone 200 mg tablet 200 mg PO DAILY tablet 10/04/20 03/01/21 carvedilol 3.125 mg tablet 3.125 mg PO Q12H 10/04/20 03/01/21 sacubitril 24 mg-valsartan 26 mg 0.5 tablet PO BID tablet 10/04/20 03/01/21 tablet Valdo Ellipta 1 inh INHALATION DAILY 10/25/20 03/01/21 cholecalciferol (vitamin D3) 2,000 mcg PO DAILY 11/22/20 03/01/21 roflumilast 500 mcg tablet 500 mcg PO DAILY tablet 01/20/21 03/01/21 ferrous sulfate [Iron (ferrous 325 mg PO DAILY 01/24/21 03/01/21 sulfate)] Allergies Allergy/AdvReac Type Severity Reaction Status Date / Time No Known Allergies Allergy Verified 03/08/21 15:13 Review of Systems Review of Systems: ROS unobtainable: Yes unobtainable due to medical condition PMFSH Past Medical History Medical History Atrial fibrillation BPH (benign prostatic hyperplasia) CHF (congestive heart failure) Echocardiogram August 2020: EF of 45%, diastolic dysfunction with elevated left heart pressures, mild left atrial enlargement Chronic anemia Chronic hypoxemic respiratory failure Coronary artery disease Diabetes mellitus Essential hypertension Hyperlipidemia Ischemic cardiomyopathy EF of 20-25% on cardiac catheterization June 2020 Megaloblastic anemia NICOLE (obstructive sleep apnea) Vitamin D deficiency Surgical History Surgical History History of angioplasty History of aortic valve replacement History of cardiac catheterization Right coronary intervention in the remote past, LAD intervention about 20 years ago. Repeat catheterization 2017 at [facility] with mid RCA intervention, catheterization June 2020 demonstrated EF of 20-25% with no new coronary artery occlusions History of coronary artery stent placement 2-3 History of lumbar laminectomy Hx of atrioventricular node ablation (~2018) [facility] Presence of biventricular AICD (~12/2019) S/P biventricular cardiac pa
--- NOTE | 2021-03-08 14:52 | PC.NURSE ---
Pt given 1 SL Nitro Tab on arrival to ED.
[2021-03-08 15:01] LABS: Glucose Point of Care 189 mg/dl (65-105)
[2021-03-08 15:05] LABS: Basophils Percent Auto 0.3 % (0.2-1.2); Eosinophils Absolute Auto 0.1 K/mm3 (0-0.3); Hematocrit 32.3 % (42.0-52.0); Immature Granulocyte Absolute 0.03 K/mm3 (0.00-0.031); Immature Granulocyte Percent A 0.5 % (0-0.5); Lymphocytes Absolute Auto 2.81 K/mm3 (0.9-3.2); Mean Corpuscular Hemoglobin 35.2 pg (26-34); Mean Corpuscular Volume 113.7 fl (80-100); Mean Platelet Volume 12.1 fl (7.4-10.4); Monocytes Absolute Auto 0.6 K/mm3 (0.1-0.6); Monocytes Percent Auto 9.4 % (2.6-8.5); Neutrophils Absolute Auto 2.5 K/mm3 (1.3-6.7); Neutrophils Percent Auto 41.8 % (45.5-73.1); Platelet Count Result 142 k/mm3 (150-375); Red Blood Count 2.84 M/mm3 (4.6-6.20); Red Cell Distribution Width 16.4 % (11.5-14.5)
[2021-03-08] MEDS: FUROSEMIDE INJ 40 MG/4 ML VIAL IV PUSH (15:08)
[2021-03-08] MEDS: NITROGLYCERIN/D5W 200 MCG/ML 50 MG/250 ML BTL IV CONT (15:08)
[2021-03-08 15:14] LABS: INR 1.1; Prothrombin Time 14.5 Seconds (11.1-14.7)
[2021-03-08 15:16] LABS: Alanine Aminotransferase 25 U/L (4-50); Albumin Level 3.8 g/dL (3.5-5.1); Alkaline Phosphatase 62 U/L (38-126); Anion Gap 4 mmol/L (8-16); Aspartate Amino Transferase 35 U/L (17-59); Bilirubin,Total 0.5 mg/dL (0.2-1.3); Blood Urea Nitrogen 26 mg/dL (9-20); Calcium 8.8 mg/dL (8.4-10.2); Carbon Dioxide 28 mmol/L (22-30); Chloride 103 mmol/L (98-107); Estimated CRCL calculation 51 ml/min; Estimated Glomerular Filt Rate 53; Glucose 189 mg/dL (65-110); Potassium 5.3 mmol/L (3.4-5.0); Sodium 135 mmol/L (137-145)
[2021-03-08 15:27] LABS: NT Pro B Type Natriuretic Pept 718 pg/mL (5-100); Troponin I < 0.012 ng/mL (0.000-0.034)
[2021-03-08 15:33] LABS: Lactic Acid Reflex 1.1 mmol/L (0.7-2.1)
[2021-03-08 16:14] LABS: Alveolar/Arterial O2 Gradient 453.3 mmHg; Base Excess ABG -0.1 mEq/l (+/-2.0); Fractional Inspired Oxygen 100 %; HCO3 ABG 24.8 mEq/l (22.0-26.0); Oxygen Content ABG 14.6 %vol (16.0-22.0); Oxygen Saturation ABG 99.5 % (95.0-100.0); PCO2 ABG 41.2 mmHg (35.0-45.0); PO2 ABG 218.5 mmHg (80.0-100.0); PO2 FiO2 Ratio Arterial Blood 2.18 %; Total Hemoglobin 10.2 g/dL (12.0-18.0); pH ABG 7.397 (7.350-7.450)
[2021-03-08 16:18] LABS: Device NON-INVASIVE VENT; Modified Allen's Test Pass; Site Drawn RIGHT RADIAL
[2021-03-08 16:21] LABS: Non-Invasive Expiratory Pressure 5 CMH2O; Non-Invasive Inspiratory Pressure 12 CMH2O; Non-Invasive Vent Rate 16 /MIN
[2021-03-08 16:30] LABS: Add Urine Microscopic? YES; Appearance Urine Clear (Clear); Bilirubin Urine Negative (Negative); Blood Urine Negative (Negative); Color Urine Straw (Yellow); Glucose Urine UA 1+ mg/dL (Negative); Ketones Urine Negative (Negative); Leukocyte Esterase Ur Negative LEU/UL (Negative); Mucus Urine Rare /lpf; Nitrate Urine Negative (Negative); Protein Urine Negative (Negative); Specific Grav Ur 1.009 (1.001-1.035); Squamous Epithelial Cell Urine Rare /hpf (Few); Urobilinogen Urine Negative mg/dL (<2.0)
--- NOTE | 2021-03-08 19:38 | PM.IMHP ---
H&P: HPI History of Present Illness Date/Time: 03/08/21 19:38 Chief Complaint: Difficulty breathing Narrative: 80-year-old male with past medical history of systolic and diastolic CHF, chronic hypoxic respiratory failure, atrial fibrillation, obstructive sleep apnea and pacemaker who presented to the ER via EMS with respiratory distress. The patient reports that his symptoms started much like they usually do when he has pulmonary edema. He reported that around noon he became acutely short of breath while at rest. His respiratory symptoms rapidly progressed and he called EMS. On EMS arrival to his home the patient was satting 70% on his usual 3 L nasal cannula. The patient received 2 g of magnesium, 125 of IV Solu-Medrol, and albuterol via EMS. He was placed on CPAP and brought to the ER. The patient reports that he was exposed to COVID-19 about 12 days ago. He reported that he went to get his hearing aids and the mathematical engineering technician who took care of him was diagnosed with COVID 5 days later. The patient had a COVID test performed at [facility] yesterday but does not have the results. He denies having any cough or congestion prior to onset of today symptoms. He has been afebrile. He has not received a COVID vaccine. When he arrived to the ER the patient was placed on BiPAP, he received IV Lasix and was placed on a nitro drip. The nitro drip was discontinued prior to admission. I evaluated the patient while he was in the ER and he was resting comfortably on BiPAP. He had no further respiratory distress and was requesting he be put back on his home nasal cannula. He denies having any chest pain or palpitations prior to onset of symptoms. His weight has been stable and he is only up 1 lb from his dry weight. He does admit that 2 days ago he ate a burger some fries and chicken and dumplings which all had high salt content. After Lasix administration in the ER the patient has had at least 2 L of urine output. Review of Systems Review of Systems: 12 systems were reviewed with pertinent positives and negatives per HPI. Except as documented in the HPI, all other systems were reviewed and are negative. [facility] Past Medical History Medical History Atrial fibrillation BPH (benign prostatic hyperplasia) CHF (congestive heart failure) Echocardiogram August 2020: EF of 45%, diastolic dysfunction with elevated left heart pressures, mild left atrial enlargement Chronic anemia Chronic hypoxemic respiratory failure Coronary artery disease Diabetes mellitus Essential hypertension Hyperlipidemia Ischemic cardiomyopathy EF of 20-25% on cardiac catheterization June 2020 Megaloblastic anemia NICOLE (obstructive sleep apnea) Vitamin D deficiency Surgical History Surgical History History of angioplasty History of aortic valve replacement History of cardiac catheterization Right coronary intervention in the remote past, LAD intervention about 20 years ago. Repeat catheterization 2017 at [facility] with mid RCA intervention, catheterization June 2020 demonstrated EF of 20-25% with no new coronary artery occlusions History of coronary artery stent placement 2-3 History of lumbar laminectomy Hx of atrioventricular node ablation (~2018) [facility] Presence of biventricular AICD (~12/2019) S/P biventricular cardiac pacemaker procedure Status post ablation of ventricular arrhythmia (~05/2020) [facility] Family History Family History Sibling Diabetes mellitus Mother Dementia Parkinsons disease Father Hypertension Chronic obstructive pulmonary disease Heart disease Social History Social History (Updated 03/08/21 @ 19:40 by Stephani Yarbrough DO) Social History: He lives with his of 62 years. They have 2 living children (1 daughter i
--- NOTE | 2021-03-08 22:53 | ADMGEN ---
This patient, Freddy Mireles Jr., was admitted to IMU Room 210-01. Patient/family oriented to hospital policies and general routines including ID bracelet, bed and alarms, visiting hours, pain management, procedures, bathroom and other care routines, personal items, smoking policy, room service/diet, and visiting hours. Information on how to activate the Rapid Response Team has been discussed. Patient/Family are encouraged to report perceived risks to care and to ask questions if they do not understand what they are told or what they should do. Leonel RN [id number]
[2021-03-09] VITALS (20 sets, daily range): BP systolic 88–96; BP diastolic 42–56; PULSE 88–94; RESP 18–20; TEMP 36.6–36.7; O2SAT 93–100
[2021-03-09 05:07] LABS: Hematocrit 26.9 % (42.0-52.0); Hemoglobin 8.5 g/dL (14.0-18.0); Immature Granulocyte Absolute 0.03 K/mm3 (0.00-0.031); Lymphocytes Absolute Auto 0.79 K/mm3 (0.9-3.2); Mean Corpuscular HGB Conc 31.6 g/dl (32-36); Mean Corpuscular Hemoglobin 35.3 pg (26-34); Mean Corpuscular Volume 111.6 fl (80-100); Mean Platelet Volume 11.9 fl (7.4-10.4); Monocytes Absolute Auto 0.3 K/mm3 (0.1-0.6); Monocytes Percent Auto 8.6 % (2.6-8.5); Neutrophils Percent Auto 64.4 % (45.5-73.1); Platelet Count Result 113 k/mm3 (150-375); Red Blood Count 2.41 M/mm3 (4.6-6.20); Red Cell Distribution Width 15.7 % (11.5-14.5)
[2021-03-09 05:18] LABS: Anion Gap 3 mmol/L (8-16); Blood Urea Nitrogen 25 mg/dL (9-20); Calcium 8.5 mg/dL (8.4-10.2); Carbon Dioxide 28 mmol/L (22-30); Chloride 104 mmol/L (98-107); Estimated CRCL calculation 60 ml/min; Estimated Glomerular Filt Rate > 60; Glucose 147 mg/dL (65-110); Potassium 4.5 mmol/L (3.4-5.0); Sodium 135 mmol/L (137-145)
[2021-03-09] MEDS: FLUTICASONE/UMECLIDIN/VILANTER 100-62.5-25 MCG ELLIPTA 1 PUFF INHALATION (08:57)
[2021-03-09] MEDS: FINASTERIDE 5 MG TABLET PO (09:05)
[2021-03-09] MEDS: PREGABALIN (*CRX) 50 MG CAPSULE 100 MG PO ×3 (09:05→17:09)
[2021-03-09] MEDS: TAMSULOSIN HCL 0.4 MG CAPSULE PO (09:05)
[2021-03-09] MEDS: FERROUS SULFATE 324 MG TABLET PO (09:05)
[2021-03-09 09:06] LABS: Glucose Point of Care 100 mg/dl (65-105)
[2021-03-09] MEDS: carvediloL 3.125 MG TABLET PO ×2 (09:06→18:15)
[2021-03-09] MEDS: CLOPIDOGREL BISULFATE 75 MG TABLET PO (09:07)
[2021-03-09] MEDS: MEXILETINE HCL 150 MG CAPSULE PO ×2 (09:07→17:09)
[2021-03-09] MEDS: MULTIVITAMINS THERAPEUTIC TAB (*BKC) 1 TABLET PO (09:07)
[2021-03-09] MEDS: ROSUVASTATIN 5 MG TABLET PO (09:07)
[2021-03-09] MEDS: CYANOCOBALAMIN 500 MCG TABLET 1500 MCG PO (09:08)
[2021-03-09] MEDS: SACUBITRIL/VALSARTAN 12-13 MG TABLET 1 TAB PO (09:08)
[2021-03-09] MEDS: APIXABAN 5 MG TABLET PO ×2 (09:09→20:12)
[2021-03-09] MEDS: AMIODARONE HCL 200 MG TABLET PO (09:09)
[2021-03-09] MEDS: CHOLECALCIFEROL 1,000 UNITS TABLET 2000 UNITS PO (09:09)
[2021-03-09] MEDS: FUROSEMIDE INJ 40 MG/4 ML VIAL IV PUSH (09:10)
[2021-03-09 12:32] LABS: Glucose Point of Care 131 mg/dl (65-105)
--- NOTE | 2021-03-09 15:22 | PM.CNCAR ---
Assessment and Plan Assessment and plan (1) CHF exacerbation: Code(s): I50.9 - Heart failure, unspecified Status: Acute Assessment and Plan: Acute on chronic heart failure with reduced ejection fraction secondary to dietary noncompliance. Patient is very tenuous with no reserve with multiple prior admissions for rapid decompensated heart failure in flash pulmonary edema. Patient is essentially at his baseline at this time. Remains on isolation for COVID rule out. ProBNP relatively low for him at 718, troponin less than 0.012. Transition back to oral Lasix 40 mg p.o. b.i.d. tomorrow. Accurate input and output, daily weight. Patient must follow strenuous sodium restriction less than 2000 mg daily with meticulous daily weight. Patient understands the importance of compliance. Provided patient rules out for COVID and is at baseline may consider discharge home tomorrow if tolerating oral diuretics. (2) Ischemic cardiomyopathy: Code(s): I25.5 - Ischemic cardiomyopathy Status: Acute Assessment and Plan: History of severe LV dysfunction EF 20-25% more recent 40-45% by echocardiogram 09/13/2020 after resynchronization therapy. Patient has a history of ventricular tachycardia maintained on amiodarone and mexiletine. Will continue home medical therapy for the time being. Continue Entresto 12/13 mg p.o. q.12 hours. (3) Chronic respiratory failure with hypoxia and hypercapnia: Code(s): J96.11 - Chronic respiratory failure with hypoxia; J96.12 - Chronic respiratory failure with hypercapnia Status: Acute Assessment and Plan: Continue supportive care with oxygen supplementation, bronchodilators as appropriate. (4) Coronary artery disease: Qualifiers: Associated angina: without angina Coronary Disease-Associated Artery/Lesion type: [place] artery [place] vs. transplanted heart: [place] heart Qualified Code(s): I25.10 - Atherosclerotic heart disease of [place] coronary artery without angina pectoris Code(s): I25.10 - Atherosclerotic heart disease of [place] coronary artery without angina pectoris Status: Acute Assessment and Plan: No evidence of acute myocardial infarction complicating admission. Continue medical therapy with carvedilol, clopidogrel, rosuvastatin. (5) Suspected 2019 novel coronavirus infection: Code(s): Z20.828 - Contact with and (suspected) exposure to other viral communicable diseases Status: Acute Assessment and Plan: Currently in isolation for COVID rule out. He has been fully vaccinated. (6) Anemia in chronic kidney disease (CKD): Code(s): N18.9 - Chronic kidney disease, unspecified; D63.1 - Anemia in chronic kidney disease Status: Acute Assessment and Plan: Chronic, hemoglobin 8.5 stable. (7) Diabetes mellitus with hyperglycemia: Qualifiers: Diabetes mellitus type: type 2 Diabetes mellitus jail insulin use: with terminal clerk use Qualified Code(s): E11.65 - Type 2 diabetes mellitus with hyperglycemia; Z79.4 - remote computer terminal operator (current) use of insulin Code(s): E11.65 - Type 2 diabetes mellitus with hyperglycemia Status: Acute Assessment and Plan: Management per primary service. History of Present Illness History of Present Illness Consult date/time: Date of service: 03/09/21 15:23 Cardiology consultation at the request of Dr. Yarbrough for our opinion regarding CHF. Requesting physician: Stephani Yarbrough DO Consult reason: congestive heart failure Reason For Visit: Flash pulmonary edema, acute respiratory failure Narrative: Patient is a very pleasant 80-year-old male with a complicated past medical history followed by Dr. Miller as an outpatient with past medical history significant for NICOLE on CPAP chronic respiratory failure on 3L nc chronically, h/o CAD with COMMUNITY SUPPORT SPECIALIST of right coronary artery, LAD stent August 1999, left main stenting 2018 history paroxysmal atrial fib
[2021-03-09 15:32] LABS: SARS-CoV-2 RNA PCR Negative
--- NOTE | 2021-03-09 17:03 | PM.IMPN ---
Progress Note: A&P Assessment and Plan (1) Flash pulmonary edema: Code(s): J81.0 - Acute pulmonary edema Status: Acute Assessment and Plan: Patient had an increased salt diet last week and came in for shortness of breath requiring BiPAP -he is now on his home oxygen settings and doing much better -continue Lasix 40 mg b.i.d. but monitor his blood pressure. I have asked RN, Jeremiah, to notify Cardiology about his blood pressure prior to giving the next dose of Lasix -plan to transition to oral Lasix tomorrow according to Cardiology -likely discharge in the morning (2) Chronic combined systolic and diastolic congestive heart failure: Code(s): I50.42 - Chronic combined systolic (congestive) and diastolic (congestive) heart failure Status: Acute Assessment and Plan: As above -continue low-sodium diet and Lasix (3) Acute respiratory failure with hypoxia: Code(s): J96.01 - Acute respiratory failure with hypoxia Status: Acute Assessment and Plan: Resolved, now back on his 3 L of oxygen which is his home setting (4) Diabetes mellitus with hyperglycemia: Qualifiers: Diabetes mellitus type: type 2 Diabetes mellitus longterm insulin use: with manager intermediate use Qualified Code(s): E11.65 - Type 2 diabetes mellitus with hyperglycemia; Z79.4 - shelter (current) use of insulin Code(s): E11.65 - Type 2 diabetes mellitus with hyperglycemia Status: Acute Assessment and Plan: Glucose 131 -continue metformin and sliding scale insulin (5) Atrial fibrillation: Qualifiers: Atrial fibrillation type: unspecified Qualified Code(s): I48.91 - Unspecified atrial fibrillation Code(s): I48.91 - Unspecified atrial fibrillation Status: Chronic Assessment and Plan: Now with paced rhythm -continue amiodarone, carvedilol and Eliquis Additional Plan Patient's COVID test was negative. He had exposure 13 days ago but other than that no exposures. He is vaccinated Time Spent With Patient Time with patient: 25 - 35 minutes Subjective Date/time seen: 03/09/21 17:03 Interval history: Pt is a 80 y/o male here for CHF exacerbation. Patient was seen today and is doing well. Pt denies nausea, vomiting, fevers, chills, constipation, diarrhea, chest pain, sob, or abdominal pain. He states that he over did it with his salt last week and has learned his lesson. Review of Systems Review of Systems: All systems reviewed & are unremarkable except as noted in HPI and below Exam Narrative: General: Well developed well nourished patient in NAD HEENT: normocephalic Neck: supple Neuro: Alert and oriented x4 CV: Regular rate and rhythm. Telemetry shows paced rhythm Resp: Crackles to the left base. No wheezing or rhonchi Abd: Soft, non distended. No pain to palpation. Positive bowel sounds Extremities: No swelling, erythema, or pain to palpation. Objective Data Vital Signs Vital Signs: Vital Signs - 24 hr 03/08/21 17:10 03/08/21 17:55 03/08/21 18:45 Temperature Pulse Rate 90 90 90 Respiratory Rate 18 18 15 Blood Pressure 120/67 109/82 Pulse Oximetry 100 100 97 03/08/21 20:45 03/08/21 22:04 03/08/21 22:59 Temperature 98.0 F Pulse Rate 90 94 89 Respiratory Rate 18 22 H 20 Blood Pressure 105/59 L 101/64 106/51 L Pulse Oximetry 97 94 100 03/08/21 23:00 03/09/21 00:00 03/09/21 00:27 Temperature 98.0 F Pulse Rate 89 89 89 Respiratory Rate 20 Blood Pressure 106/51 L Pulse Oximetry 100 94 03/09/21 04:00 03/09/21 06:00 03/09/21 08:00 Temperature 98.0 F 97.9 F Pulse Rate 90 89 88 Respiratory Rate 20 20 Blood Pressure 95/54 L 95/56 L Pulse Oximetry 93 95 03/09/21 09:00 03/09/21 09:06 03/09/21 09:07 Temperature Pulse Rate 91 90 Respiratory Rate Blood Pressure Pulse Oximetry 95 03/09/21 09:09 03/09/21 10:00 03/09/21 12:00 Temperature 98.1
[2021-03-09] MEDS: AMITRIPTYLINE HCL 10 MG TABLET PO (17:09)
[2021-03-09] MEDS: FUROSEMIDE INJ 40 MG/4 ML VIAL 20 MG IV PUSH (17:17)
[2021-03-09 17:36] LABS: Glucose Point of Care 101 mg/dl (65-105)
[2021-03-09] MEDS: OMEGA 3 POLYUNSAT FATTY ACIDS 1 GM CAP 2 GM PO (20:12)
[2021-03-09] MEDS: Roflumilast 500 mcg tablet 500 EACH PO (20:12)
[2021-03-09 20:37] LABS: Glucose Point of Care 111 mg/dl (65-105)
[2021-03-10] VITALS: BP 91/54; PULSE 89; RESP 20; TEMP 37.1; O2SAT 96
[2021-03-10 04:00] VITALS: BP 91/50; PULSE 89; RESP 20; TEMP 37.1; O2SAT 99
[2021-03-10 05:13] LABS: Hematocrit 24.5 % (42.0-52.0); Hemoglobin 7.8 g/dL (14.0-18.0); Immature Platelet Fraction Pct 7.8 % (0.9-11.2); Mean Corpuscular HGB Conc 31.8 g/dl (32-36); Mean Corpuscular Hemoglobin 35.1 pg (26-34); Mean Corpuscular Volume 110.4 fl (80-100); Mean Platelet Volume 11.7 fl (7.4-10.4); Platelet Count Result 99 k/mm3 (150-375); Red Blood Count 2.22 M/mm3 (4.6-6.20); Red Cell Distribution Width 15.9 % (11.5-14.5); White Blood Count 3.6 K/mm3 (4.5-10.0)
[2021-03-10 05:28] LABS: Anion Gap 3 mmol/L (8-16); Blood Urea Nitrogen 25 mg/dL (9-20); Calcium 8.4 mg/dL (8.4-10.2); Carbon Dioxide 30 mmol/L (22-30); Chloride 103 mmol/L (98-107); Estimated CRCL calculation 55 ml/min; Estimated Glomerular Filt Rate 58; Glucose 84 mg/dL (65-110); Magnesium 2.2 mg/dL (1.6-2.3); Potassium 4.1 mmol/L (3.4-5.0); Sodium 136 mmol/L (137-145)
[2021-03-10 08:00] VITALS: BP 109/53; PULSE 90; PULSE 92; RESP 18; TEMP 36.6; O2SAT 90; O2SAT 99
[2021-03-10 08:16] LABS: Glucose Point of Care 164 mg/dl (65-105)
[2021-03-10 08:53] VITALS: PULSE 89
[2021-03-10] MEDS: FERROUS SULFATE 324 MG TABLET PO (08:53)
[2021-03-10] MEDS: CHOLECALCIFEROL 1,000 UNITS TABLET 2000 UNITS PO (08:53)
[2021-03-10] MEDS: AMIODARONE HCL 200 MG TABLET PO (08:53)
[2021-03-10] MEDS: CLOPIDOGREL BISULFATE 75 MG TABLET PO (08:53)
[2021-03-10] MEDS: APIXABAN 5 MG TABLET PO (08:53)
[2021-03-10] MEDS: CYANOCOBALAMIN 500 MCG TABLET 1500 MCG PO (08:53)
[2021-03-10] MEDS: ROSUVASTATIN 5 MG TABLET PO (08:53)
[2021-03-10] MEDS: MEXILETINE HCL 150 MG CAPSULE PO (08:53)
[2021-03-10] MEDS: PREGABALIN (*CRX) 50 MG CAPSULE 100 MG PO (08:53)
[2021-03-10] MEDS: MULTIVITAMINS THERAPEUTIC TAB (*BKC) 1 TABLET PO (08:53)
[2021-03-10] MEDS: FINASTERIDE 5 MG TABLET PO (08:54)
[2021-03-10] MEDS: TAMSULOSIN HCL 0.4 MG CAPSULE PO (08:54)
--- NOTE | 2021-03-10 09:11 | PM.DS ---
DS: Admitting Diagnosis Admitting Diagnosis chf exacerbation DS: Discharge Diagnosis Discharge Diagnosis (1) Flash pulmonary edema: Code(s): J81.0 - Acute pulmonary edema Status: Acute Assessment and Plan: Patient had an increased salt diet last week and came in for shortness of breath requiring BiPAP -he is now on his home oxygen settings and doing much better -He received Lasix 40 mg b.i.d. while here and is doing better -educated pt on daily weights and close f/u with cardiology and PCP (2) Chronic combined systolic and diastolic congestive heart failure: Code(s): I50.42 - Chronic combined systolic (congestive) and diastolic (congestive) heart failure Status: Acute Assessment and Plan: As above -continue low-sodium diet and Lasix (3) Acute respiratory failure with hypoxia: Code(s): J96.01 - Acute respiratory failure with hypoxia Status: Acute Assessment and Plan: Resolved, now back on his 3 L of oxygen which is his home setting (4) Diabetes mellitus with hyperglycemia: Qualifiers: Diabetes mellitus snf insulin use: with oysterman use Diabetes mellitus type: type 2 Qualified Code(s): E11.65 - Type 2 diabetes mellitus with hyperglycemia; Z79.4 - buttermaker helper (current) use of insulin Code(s): E11.65 - Type 2 diabetes mellitus with hyperglycemia Status: Acute Assessment and Plan: Glucose 164 -continue metformin (5) Atrial fibrillation: Qualifiers: Atrial fibrillation type: unspecified Qualified Code(s): I48.91 - Unspecified atrial fibrillation Code(s): I48.91 - Unspecified atrial fibrillation Status: Chronic Assessment and Plan: Now with paced rhythm -continue amiodarone, carvedilol and Eliquis (6) Pancytopenia: Code(s): D61.818 - Other pancytopenia Status: Acute Assessment and Plan: Pt has a hx of this and is followed by Dr. Fermin. he has a hx of a bone marrow bx and does do injections (pt unsure what injection medication he is on) DS: Summary Hospital Course Hospital Course: DOS 03/10/21 Patient is an 80-year-old male who presented emergency room for acute shortness of breath. Patient has a history of flash pulmonary edema and had a high salt diet couple days prior. He was exposed to COVID 12 days prior but is fully vaccinated. Chest x-ray on admission was lateral interstitial and airspace opacities with perihilar and lower lung predominance most likely pulmonary edema although differential included pneumonia. Patient was placed on BiPAP and sent to the IMU and was given Lasix. The patient improved quickly. For this reason, I do suspect chest x-ray represents pulmonary edema since he quickly improved with Lasix therapy. He was tested for COVID due to exposure which was negative. The day of discharge he was feeling great and back to baseline. Cardiology was consulted during his stay and is going to continue his home medications and we educated him on a low-salt diet and daily weights. 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 Fermin. Overall, the patient was back to baseline and ready to go. He was educated about the worrisome signs and symptoms to come back to emergency room for and was discharged stable condition. Status at Discharge Functional status at discharge: independent ambulation Overall status at discharge: patient is back to baseline Time Spent with Patient Time attestation: Total time spent providing and/or coordinating discharge services:35 min Exam Narrative: General: Well developed well nourished patient in NAD HEENT: normocephalic Neck: supple Neuro: Alert and oriented x4 CV: Regular rate and rhythm. Telemetry shows paced rhythm Resp: Crackles to the left base. No wheezing or rhonchi Abd: Soft, non distended. No pain to palpation. Positive bowel sounds Extremities: No swell
[2021-03-10 09:49] VITALS: O2SAT 90
[2021-03-10] MEDS: FLUTICASONE/UMECLIDIN/VILANTER 100-62.5-25 MCG ELLIPTA 1 PUFF INHALATION (09:49)
--- NOTE | 2021-03-10 11:12 | PM.PNCARD ---
Progress Note: A&P Assessment and Plan (1) CHF exacerbation: Code(s): I50.9 - Heart failure, unspecified <KOKO Caballero - Last Filed: 03/10/21 11:24> Status: Acute <KOKO Caballero - Last Filed: 03/10/21 11:24> Assessment and Plan: Acute on chronic heart failure with reduced ejection fraction secondary to dietary noncompliance. Patient is very tenuous with no reserve with multiple prior admissions for rapid decompensated heart failure in flash pulmonary edema. Patient is essentially at his baseline at this time. ProBNP relatively low for him at 718, troponin less than 0.012. -Transition back to oral Lasix 40 mg p.o. b.i.d. (previous home dose) -Counseled on low sodium diet <KOKO Caballero - Last Filed: 03/10/21 11:24> (2) Ischemic cardiomyopathy: Code(s): I25.5 - Ischemic cardiomyopathy <KOKO Caballero - Last Filed: 03/10/21 11:24> Status: Acute <KOKO Caballero - Last Filed: 03/10/21 11:24> Assessment and Plan: History of severe LV dysfunction EF 20-25% more recent 40-45% by echocardiogram 09/13/2020 after resynchronization therapy. Patient has a history of ventricular tachycardia maintained on amiodarone and mexiletine. Will continue home medical therapy for the time being. Continue Entresto 12/13 mg p.o. q.12 hours. <KOKO Caballero - Last Filed: 03/10/21 11:24> (3) Chronic respiratory failure with hypoxia and hypercapnia: Code(s): J96.11 - Chronic respiratory failure with hypoxia; J96.12 - Chronic respiratory failure with hypercapnia <KOKO Caballero - Last Filed: 03/10/21 11:24> Status: Acute <KOKO Caballero - Last Filed: 03/10/21 11:24> Assessment and Plan: Continue supportive care with oxygen supplementation, bronchodilators as appropriate. <KOKO Caballero - Last Filed: 03/10/21 11:24> (4) Coronary artery disease: Qualifiers: Associated angina: without angina Coronary Disease-Associated Artery/Lesion type: [place] artery [place] vs. transplanted heart: [place] heart Qualified Code(s): I25.10 - Atherosclerotic heart disease of [place] coronary artery without angina pectoris <KOKO Caballero - Last Filed: 03/10/21 11:24> Code(s): I25.10 - Atherosclerotic heart disease of [place] coronary artery without angina pectoris <KOKO Caballero - Last Filed: 03/10/21 11:24> Status: Acute <KOKO Caballero - Last Filed: 03/10/21 11:24> Assessment and Plan: No evidence of acute myocardial infarction complicating admission. Continue medical therapy with carvedilol, clopidogrel, rosuvastatin. <KOKO Caballero - Last Filed: 03/10/21 11:24> (5) Suspected 2019 novel coronavirus infection: Code(s): Z20.828 - Contact with and (suspected) exposure to other viral communicable diseases <KOKO Caballero - Last Filed: 03/10/21 11:24> Status: Acute <KOKO Caballero - Last Filed: 03/10/21 11:24> Assessment and Plan: Currently in isolation for COVID rule out. He has been fully vaccinated. <KOKO Caballero - Last Filed: 03/10/21 11:24> (6) Anemia in chronic kidney disease (CKD): Code(s): N18.9 - Chronic kidney disease, unspecified; D63.1 - Anemia in chronic kidney disease <KOKO Caballero - Last Filed: 03/10/21 11:24> Status: Acute <KOKO Caballero - Last Filed: 03/10/21 11:24> Assessment and Plan: Chronic, hemoglobin 8.5 stable. <KOKO Caballero - Last Filed: 03/10/21 11:24> (7) Diabetes mellitus with hyperglycemia: Qualifiers: Diabetes mellitus fpc insulin use: with termite helper use Diabetes mellitus type: type 2 Qualified Code(s): E11.65 - Type 2 diabetes mellitus with hyperglycemia; Z79.4 - [facility] (current) use of insulin <KOKO Caballero - Last Filed: 03/10/21 11:24>
[2021-03-10 12:00] VITALS: BP 104/49; PULSE 89; RESP 16; TEMP 36.1; O2SAT 99
[2021-03-10 12:02] LABS: Glucose Point of Care 135 mg/dl (65-105)
[2021-03-10] MEDS: SACUBITRIL/VALSARTAN 12-13 MG TABLET 1 TAB PO (12:59)
[2021-03-10] MEDS: FUROSEMIDE 40 MG TABLET PO (12:59)
== END 2021-03-10 13:20 | disposition home or self-care (01) ==
LOC: ANHED 16:52 → ANHIMU 23:13
PROVIDERS: Internal Medicine; Physician Assistant; Admitting Provider Internal Medicine; Emergency Provider Emergency Medicine; PCP Internal Medicine; Visit Provider Internal Medicine
DX: J81.0 Acute pulmonary edema (principal); J96.22 Acute and chronic respiratory failure with hypercapnia; J96.21 Acute and chronic respiratory failure with hypoxia; I13.0 Hypertensive heart and chronic kidney disease with heart failure and stage 1 through stage 4 chronic kidney disease, or unspecified chronic kidney disease; I50.42 Chronic combined systolic (congestive) and diastolic (congestive) heart failure; E11.65 Type 2 diabetes mellitus with hyperglycemia; D61.818 Other pancytopenia; I25.5 Ischemic cardiomyopathy; Z99.81 Dependence on supplemental oxygen; G47.33 Obstructive sleep apnea (adult) (pediatric); Z20.822 Contact with and (suspected) exposure to COVID-19; I48.91 Unspecified atrial fibrillation; I25.10 Atherosclerotic heart disease of native coronary artery without angina pectoris; E11.22 Type 2 diabetes mellitus with diabetic chronic kidney disease; N18.9 Chronic kidney disease, unspecified; D63.1 Anemia in chronic kidney disease; E78.5 Hyperlipidemia, unspecified; E55.9 Vitamin D deficiency, unspecified; D53.1 Other megaloblastic anemias, not elsewhere classified; Z79.01 Long term (current) use of anticoagulants; Z79.02 Long term (current) use of antithrombotics/antiplatelets; Z79.51 Long term (current) use of inhaled steroids; Z95.4 Presence of other heart-valve replacement; Z95.5 Presence of coronary angioplasty implant and graft; Z95.0 Presence of cardiac pacemaker; Z87.891 Personal history of nicotine dependence
CPT/HCPCS: 36415; 36600; 71045; 80048; 80053; 81001; 82805; 82948; 83605; 83735; 83880; 84484; 85025; 85027; 85055; 85610; 85730; 87040; 93005; 94002; 94003; 94640; 96365; 96366; 96375; 96376; 99291; A9270; C9803; G0378; J1940; U0003; U0005

== ENCOUNTER 2021-03-21 16:31 | Observation (INO) | payer MEDICARE, SELFPAY ==
--- NOTE | ~2021-03-21 | XR_ITS ---
XR chest 1V portable DATE: 03/21/2021 20:32 INDICATION: Shortness of breath. History of pulmonary edema, atrial fibrillation, coronary artery dis ease TECHNIQUE: Portable upright AP chest on 03/21/20212025 hours COMPARISON: 03/08/2021 portable AP chest FINDINGS: Left-sided triple lead cardiac pacemaker device with leads overlying right atrium, right ve ntricle and coronary sinus. Heart size appears within normal range. Aortic arch calcification. There is pulmonary vascular congestion. There are mild bilateral central and to a greater extent lowe r lung infiltrates and/or atelectasis, improved moderately since 03/08/2021. IMPRESSION: Mild but improved bilateral pulmonary infiltrates since 03/08/2021 Reviewed, dictated and finalized at location A.
--- NOTE | 2021-03-21 17:26 | ECG_ITS ---
Measurements Intervals [place] Rate: 89 P: -70 [place]: 169 QRS: 191 QRSD: 154 T: 17 QT: 411 QTc: 502 Interpretive Statements ELECTRONIC ATRIAL PACEMAKER ELECTRONIC VENTRICULAR PACEMAKER NO FURTHER INTERPRETATION IS POSSIBLE ATYPICAL ECG Electronically Signed On 03-21-2021 19:28:39 CDT by Sanya Stewart D.O.
--- NOTE | 2021-03-21 17:28 | ED.GENADULT ---
HPI - General Adult General Chief complaint: Shortness of Breath/Dyspnea Stated complaint: SOB Time Seen by Provider: 03/21/21 16:41 Source: patient History of Present Illness HPI narrative: Patient is a 80 y/o male complaining of moderate SOB starting earlier today. He has no chest pain or cough. There is no alleviating or exacerbating factor. He states that he has history of COPD and he is on O2 at 3L/NC normally. Related Data Home Medications Medication Instructions Recorded Confirmed finasteride 5 mg tablet 5 mg PO DAILY 09/10/19 03/21/21 fenofibric acid (choline) 135 mg 135 mg PO DAILY 09/11/19 03/21/21 capsule,delayed release furosemide 40 mg tablet 40 mg PO 0900,1500 09/11/19 03/21/21 multivitamin 1 cap PO DAILY 09/11/19 03/21/21 omega3-dha 200 mg-epa 300 mg-othr 2 cap PO HS 09/11/19 03/21/21 om3 100 mg-fish oil 1,000 mg capsule Eliquis 5 mg PO BID 12/18/19 03/21/21 clopidogrel [Plavix] 75 mg PO DAILY #0 12/19/19 03/21/21 cyanocobalamin (vitamin B-12) 1,500 mcg PO DAILY 12/19/19 03/21/21 [Vitamin B-12] coenzyme Q10 [CoQ-10] 200 mg PO DAILY 12/21/19 03/21/21 rosuvastatin 5 mg tablet 5 mg PO DAILY 05/07/20 03/21/21 mexiletine 150 mg BYMOUTH BID 09/13/20 03/21/21 amiodarone 200 mg tablet 200 mg PO DAILY tablet 10/04/20 03/21/21 carvedilol 3.125 mg tablet 3.125 mg PO Q12H 10/04/20 03/21/21 sacubitril 24 mg-valsartan 26 mg 0.5 tablet PO BID tablet 10/04/20 03/21/21 tablet Trelegy Ellipta 1 inh INHALATION DAILY 10/25/20 03/21/21 cholecalciferol (vitamin D3) 2,000 mcg PO DAILY 11/22/20 03/21/21 roflumilast 500 mcg tablet 500 mcg PO HS tablet 01/20/21 03/21/21 ferrous sulfate [Iron (ferrous 325 mg PO DAILY 01/24/21 03/21/21 sulfate)] amitriptyline 10 mg PO 1500 03/08/21 03/08/21 pregabalin 100 mg PO TID 03/08/21 03/08/21 Allergies Allergy/AdvReac Type Severity Reaction Status Date / Time No Known Allergies Allergy Verified 03/21/21 18:05 Review of Systems Constitutional: Constitutional: Denies chills, Denies fever(s), Denies headache(s) and Denies weakness Eyes: Eyes: Denies blurry vision ENT: Denies headache(s) and Denies neck pain Cardiovascular: Cardiovascular: Denies chest pain and Reports dyspnea Respiratory: Respiratory: Denies cough and Reports dyspnea Gastrointestinal: Gastrointestinal: Denies abdominal pain, Denies diarrhea, Denies nausea and Denies vomiting Genitourinary: Genitourinary: Denies hematuria and Denies dysuria Musculoskeletal: Musculoskeletal: Denies back pain and Denies neck pain Neurologic: Denies headache(s) and Denies weakness [facility] Past Medical History Medical History (Updated 03/21/21 @ 21:04 by Gypsy Lal MD) Atrial fibrillation BPH (benign prostatic hyperplasia) CHF (congestive heart failure) Echocardiogram August 2020: EF of 45%, diastolic dysfunction with elevated left heart pressures, mild left atrial enlargement Chronic anemia Chronic hypoxemic respiratory failure Coronary artery disease Diabetes mellitus Essential hypertension Hyperlipidemia Ischemic cardiomyopathy EF of 20-25% on cardiac catheterization June 2020 Megaloblastic anemia NICOLE (obstructive sleep apnea) Vitamin D deficiency Surgical History Surgical History History of angioplasty History of aortic valve replacement History of cardiac catheterization Right coronary intervention in the remote past, LAD intervention about 20 years ago. Repeat catheterization 2017 at [facility] with mid RCA intervention, catheterization June 2020 demonstrated EF of 20-25% with no new coronary artery occlusions History of coronary artery stent placement 2-3 History of lumbar laminectomy Hx of atrioventricular node ablation (~2018) [facility] Presence of biventricular AICD (~12/2019) S/P biventricular cardiac pacemaker procedure Status post ablation of ventricular arrhythmia (~05/2020) [facility] Family History Fam
[2021-03-21 17:31] VITALS: BP 134/70; PULSE 86; RESP 16; TEMP 36.8; O2SAT 100
[2021-03-21 17:50] LABS: Basophils Percent Auto 0.3 % (0.2-1.2); Eosinophils Percent Auto 1.2 % (0-4.4); Hematocrit 25.8 % (42.0-52.0); Hemoglobin 8.1 g/dL (14.0-18.0); Immature Granulocyte Absolute 0.02 K/mm3 (0.00-0.031); Immature Granulocyte Percent A 0.6 % (0-0.5); Lymphocytes Absolute Auto 0.97 K/mm3 (0.9-3.2); Lymphocytes Percent Auto 29.8 % (18.3-44.2); Mean Corpuscular HGB Conc 31.4 g/dl (32-36); Mean Corpuscular Hemoglobin 35.2 pg (26-34); Mean Corpuscular Volume 112.2 fl (80-100); Mean Platelet Volume 10.9 fl (7.4-10.4); Monocytes Absolute Auto 0.4 K/mm3 (0.1-0.6); Monocytes Percent Auto 12.9 % (2.6-8.5); Neutrophils Absolute Auto 1.8 K/mm3 (1.3-6.7); Neutrophils Percent Auto 55.2 % (45.5-73.1); Platelet Count Result 158 k/mm3 (150-375); Red Cell Distribution Width 15.9 % (11.5-14.5); White Blood Count 3.3 K/mm3 (4.5-10.0)
[2021-03-21] MEDS: FUROSEMIDE INJ 40 MG/4 ML VIAL IV PUSH (17:55)
[2021-03-21 19:08] LABS: Alanine Aminotransferase 22 U/L (4-50); Albumin Level 3.2 g/dL (3.5-5.1); Alkaline Phosphatase 54 U/L (38-126); Anion Gap 5 mmol/L (8-16); Aspartate Amino Transferase 27 U/L (17-59); Bilirubin,Total 0.3 mg/dL (0.2-1.3); Blood Urea Nitrogen 25 mg/dL (9-20); Calcium 8.4 mg/dL (8.4-10.2); Carbon Dioxide 28 mmol/L (22-30); Chloride 104 mmol/L (98-107); Estimated CRCL calculation 49 ml/min; Estimated Glomerular Filt Rate 58; Glucose 130 mg/dL (65-110); Potassium 4.6 mmol/L (3.4-5.0); Sodium 137 mmol/L (137-145)
[2021-03-21 19:10] LABS: NT Pro B Type Natriuretic Pept 1000 pg/mL (5-100); Troponin I < 0.012 ng/mL (0.000-0.034)
[2021-03-21 19:13] VITALS: BP 117/63; PULSE 92; RESP 21; O2SAT 100
--- NOTE | 2021-03-21 19:20 | PC.NURSE ---
Assumed care of pt at this time. Pt alert and upright on stretcher, updated on POC.
[2021-03-21 19:21] VITALS: BP 114/65; PULSE 89; RESP 20; O2SAT 100; O2SAT 99
[2021-03-21 21:30] VITALS: BP 107/54; PULSE 92; RESP 18; O2SAT 96
[2021-03-21 21:41] LABS: Troponin I < 0.012 ng/mL (0.000-0.034)
--- NOTE | 2021-03-21 22:07 | PC.NURSE ---
Attempted to call report to IMU at this time. Was told that receiving nurse was on phone giving report to another facility. This RN waited on hold for 10 minutes, then called back and was informed RN was in COVID room and will call back when available.
[2021-03-21 22:26] VITALS: BP 107/51; PULSE 90; RESP 22; O2SAT 100
[2021-03-21 22:40] VITALS: BP 113/54; PULSE 87; RESP 20; TEMP 36.3; O2SAT 100
--- NOTE | 2021-03-21 22:42 | ADMGEN ---
This patient, Freddy Mireles Jr., was admitted to IMU Room 205-01. Patient/family oriented to hospital policies and general routines including ID bracelet, bed and alarms, visiting hours, pain management, procedures, bathroom and other care routines, personal items, smoking policy, room service/diet, and visiting hours. Information on how to activate the Rapid Response Team has been discussed. Patient/Family are encouraged to report perceived risks to care and to ask questions if they do not understand what they are told or what they should do. Report Anna BLOOD [id number]
[2021-03-21 22:44] VITALS: BMI 30.5
[2021-03-22] VITALS (10 sets, daily range): BP systolic 98–104; BP diastolic 46–53; PULSE 89–92; RESP 18; TEMP 36.5; O2SAT 98–100
[2021-03-22 00:40] LABS: Troponin I < 0.012 ng/mL (0.000-0.034)
--- NOTE | 2021-03-22 01:52 | PM.IMHP ---
H&P: HPI History of Present Illness Date/Time: 03/22/21 01:52 Chief Complaint: Shortness of breath Narrative: This is an 80-year-old male with past medical history significant for congestive heart failure, chronic hypoxic respiratory failure on home O2, atrial fibrillation anticoagulated rate controlled, type 2 diabetes mellitus controlled with diet and oral agents ,dyslipidemia, benign prostatic hyperplasia. Patient was just recently discharged from our service due to flash pulmonary edema requiring BiPAP he was also seen by the cardiology service while and his last hospital stay he was successfully diuresed and sent home. Today he comes back due to acute onset shortness of breath patient states that he has been his usual state of health up until around noon time when he all of a sudden became very short of breath he denies any cough, any sputum production, any chest pain PND or orthopnea, or leg swelling. Preliminary workup was significant for slightly elevated brain natriuretic peptide and a chest x-ray with improving infiltrates from prior chest x-ray. Decision was made to bring the patient for observation. Review of Systems Review of Systems: Patient presented to emergency room due to acute onset shortness of breath states that he has had flash pulmonary edema in the past and a feels like it. Constitutional: Constitutional: Denies chills, Denies fatigue, Denies fever(s) and Denies weakness Eyes: Eyes: Denies change in vision ENT: Denies dysphagia, Denies nasal congestion, Denies nasal discharge, Denies nasal obstruction and Denies odynophagia Cardiovascular: Cardiovascular: Denies chest pain, Denies edema and Reports dyspnea Respiratory: Respiratory: Denies cough Gastrointestinal: Gastrointestinal: Denies abdominal pain, Denies dyspepsia, Denies heartburn, Denies diarrhea, Denies nausea and Denies vomiting Genitourinary: Genitourinary: Reports no additional male genitourinary complaints Musculoskeletal: Musculoskeletal: Reports no additional musculoskeletal complaints Integumentary/Breasts: Skin/Breast: Reports system reviewed and no additional complaints, except as docu Neurologic: Reports system reviewed and no additional complaints, except as documented Psychiatric: Psychiatric: Reports no additional psychiatric complaints Endocrine: Endocrine: Reports no additional endocrine complaints Hematologic/Lymphatic: Hematologic/Lymphatic: Reports no additional hematologic/lymphatic complaints Allergic/Immunologic: Allergic/Immunologic: Reports no additional allergic/immunologic complaints [facility] Past Medical History Medical History (Updated 03/22/21 @ 02:43 by Nadira Bueno MD) Atrial fibrillation BPH (benign prostatic hyperplasia) CHF (congestive heart failure) Echocardiogram August 2020: EF of 45%, diastolic dysfunction with elevated left heart pressures, mild left atrial enlargement Chronic anemia Chronic hypoxemic respiratory failure Coronary artery disease Diabetes mellitus Essential hypertension Hyperlipidemia Ischemic cardiomyopathy EF of 20-25% on cardiac catheterization June 2020 Megaloblastic anemia NICOLE (obstructive sleep apnea) Vitamin D deficiency Surgical History Surgical History History of angioplasty History of aortic valve replacement History of cardiac catheterization Right coronary intervention in the remote past, LAD intervention about 20 years ago. Repeat catheterization 2017 at [facility] with mid RCA intervention, catheterization June 2020 demonstrated EF of 20-25% with no new coronary artery occlusions History of coronary artery stent placement 2-3 History of lumbar laminectomy Hx of atrioventricular node ablation (~2018) [facility] Presence of biventricular AICD (~12/2019) S/P biventricular cardiac pacemaker procedure Status post ablation of ventricular arrhythmia (~05/2020) [facility] Family History F
[2021-03-22] MEDS: FENOFIBRATE NANOCRYSTALLIZED 145 MG TABLET PO (08:30)
[2021-03-22] MEDS: FINASTERIDE 5 MG TABLET PO (08:30)
[2021-03-22] MEDS: CYANOCOBALAMIN 500 MCG TABLET 1500 MCG PO (08:30)
[2021-03-22] MEDS: TAMSULOSIN HCL 0.4 MG CAPSULE PO (08:30)
[2021-03-22] MEDS: APIXABAN 5 MG TABLET PO (08:30)
[2021-03-22] MEDS: CHOLECALCIFEROL 1,000 UNITS TABLET 2000 UNITS PO (08:30)
[2021-03-22] MEDS: FERROUS SULFATE 324 MG TABLET PO (08:30)
[2021-03-22] MEDS: MULTIVITAMINS THERAPEUTIC TAB (*BKC) 1 TABLET PO (08:30)
[2021-03-22] MEDS: ROSUVASTATIN 5 MG TABLET PO (08:30)
[2021-03-22] MEDS: CLOPIDOGREL BISULFATE 75 MG TABLET PO (08:31)
[2021-03-22 08:33] LABS: Hematocrit 25.5 % (42.0-52.0); Mean Corpuscular HGB Conc 31.4 g/dl (32-36); Mean Corpuscular Hemoglobin 34.8 pg (26-34); Mean Corpuscular Volume 110.9 fl (80-100); Mean Platelet Volume 11.4 fl (7.4-10.4); Platelet Count Result 148 k/mm3 (150-375); Red Cell Distribution Width 15.8 % (11.5-14.5)
[2021-03-22] MEDS: PREGABALIN (*CRX) 50 MG CAPSULE 100 MG PO (08:35)
[2021-03-22 08:54] LABS: Anion Gap 4 mmol/L (8-16); Blood Urea Nitrogen 23 mg/dL (9-20); Calcium 8.2 mg/dL (8.4-10.2); Carbon Dioxide 31 mmol/L (22-30); Chloride 101 mmol/L (98-107); Estimated CRCL calculation 54 ml/min; Estimated Glomerular Filt Rate 58; Glucose 171 mg/dL (65-110); Potassium 4.3 mmol/L (3.4-5.0); Sodium 136 mmol/L (137-145)
[2021-03-22] MEDS: FLUTICASONE/UMECLIDIN/VILANTER 100-62.5-25 MCG ELLIPTA 1 PUFF INHALATION (09:32)
[2021-03-22] MEDS: AMIODARONE HCL 200 MG TABLET PO (09:35)
--- NOTE | 2021-03-22 11:38 | PM.DS ---
DS: Admitting Diagnosis Admitting Diagnosis Acute on chronic systolic congestive Heart failure DS: Discharge Diagnosis Discharge Diagnosis (1) Chronic respiratory failure with hypoxia and hypercapnia: Code(s): J96.11 - Chronic respiratory failure with hypoxia; J96.12 - Chronic respiratory failure with hypercapnia Status: Acute Assessment and Plan: Patient currently on his usual amount of supplemental oxygen by nasal cannula No increased needs Continue to monitor (2) CHF (congestive heart failure): Code(s): I50.9 - Heart failure, unspecified Status: Acute Assessment and Plan: Patient chest x-ray shows some fluid overload however improved from prior Will diurese Monitor intake and output (3) Ischemic cardiomyopathy: Code(s): I25.5 - Ischemic cardiomyopathy Status: Acute Assessment and Plan: Continue Entresto Stable (4) COPD (chronic obstructive pulmonary disease): Qualifiers: COPD type: unspecified COPD Qualified Code(s): J44.9 - Chronic obstructive pulmonary disease, unspecified Code(s): J44.9 - Chronic obstructive pulmonary disease, unspecified Status: Chronic Assessment and Plan: Continue Trelegy Ellipta substitute for in-house formulary (5) MDS (myelodysplastic syndrome), low grade: Code(s): D46.20 - Refractory anemia with excess of blasts, unspecified Status: Acute Assessment and Plan: Unchanged Follow-up in outpatient setting (6) Anemia in chronic kidney disease (CKD): Code(s): N18.9 - Chronic kidney disease, unspecified; D63.1 - Anemia in chronic kidney disease Status: Acute Assessment and Plan: Follow-up in outpatient setting Transfuse as needed DS: Summary Hospital Course Reason for hospitalization: Dyspnea Hospital Course: This gentleman with known chronic systolic heart failure was taking furosemide 40 mg once daily instead of twice daily. He noticed increased shortness of breath. After admission via the emergency room and receiving 2 doses of furosemide 40 mg IV his dyspnea was at baseline. He was at his chronic 3 liters/minute of oxygen. He did not want to see any other pit slagman other than his primary doctor Paul. He will call him for an appointment after discharge. He wished to go home with follow-up as an outpatient. Status at Discharge Overall status at discharge: patient is back to baseline Time Spent with Patient Time attestation: Total time spent providing and/or coordinating discharge services: Exam Narrative: HEENT: PERRL, sclerae nonicteric, pharyngeal mucosa pink and intact NECK: No JVD CHEST: Few BIBASILAR CRACKLES. Normal effort. HEART: NL S1/S2, regular, no audible murmur ABDOMEN: BS+, soft, nontender, no mass, no bruits EXTREMITIES: No cyanosis, edema, or clubbing NEUROLOGIC: CN intact and symmetric to inspection. MUSCULOSKELETAL: Tone and strength symmetric. PSYCH: Alert. Oriented to person, place, and time. DS: Data Data Completed and Pending Labs on day of discharge: Labs from last 24 hours 03/22/21 03/22/21 03/22/21 08:05 08:05 00:01 WBC 3.0 L RBC 2.30 L Hgb 8.0 L Hct 25.5 L MCV 110.9 H MCH 34.8 H MCHC 31.4 L RDW 15.8 H Plt Count 148 L MPV 11.4 H Immature Gran % (Auto) Neut % (Auto) Lymph % (Auto) [place] % (Auto) Eos % (Auto) Baso % (Auto) Lymph # (Auto) [place] # (Auto) Eos # (Auto) Baso # (Auto) Abs Immat Gran (auto) Absolute Neuts (auto) Absolute Nucleated RBC Nucleated RBC % Sodium 136 L Potassium 4.3 Chloride 101 Carbon Dioxide 31 H Anion Gap 4 L BUN 23 H Creatinine 1.20 Estim Creat Clear Calc 54 Estimated GFR 58 L Glucose 171 H Calcium 8.2 L Total Bilirubin AST ALT Alkaline Phosphatase Troponin I < 0.012 NT-Pro-B Natriuret Pep Total Protein Albumin 03/21/21 03/21/21 03/21/21 20
[2021-03-22] MEDS: carvediloL 3.125 MG TABLET PO (11:44)
[2021-03-22] MEDS: MEXILETINE HCL 150 MG CAPSULE PO (11:45)
[2021-03-22] MEDS: SACUBITRIL/VALSARTAN 12-13 MG TABLET 1 TAB PO (11:45)
[2021-03-22] MEDS: FUROSEMIDE INJ 40 MG/4 ML VIAL IV PUSH (11:46)
== END 2021-03-22 12:54 | disposition home or self-care (01) ==
LOC: ANHED 21:04 → ANHIMU 23:18
PROVIDERS: Admitting Provider Internal Medicine; Emergency Provider Emergency Medicine; PCP Internal Medicine; Visit Provider Internal Medicine
DX: J96.11 Chronic respiratory failure with hypoxia (principal); J44.9 Chronic obstructive pulmonary disease, unspecified; I50.22 Chronic systolic (congestive) heart failure; Z99.81 Dependence on supplemental oxygen; E78.5 Hyperlipidemia, unspecified; N40.0 Benign prostatic hyperplasia without lower urinary tract symptoms; I48.91 Unspecified atrial fibrillation; G47.33 Obstructive sleep apnea (adult) (pediatric); Z87.891 Personal history of nicotine dependence; I11.0 Hypertensive heart disease with heart failure; I50.9 Heart failure, unspecified; D63.1 Anemia in chronic kidney disease; I13.0 Hypertensive heart and chronic kidney disease with heart failure and stage 1 through stage 4 chronic kidney disease, or unspecified chronic kidney disease; E11.22 Type 2 diabetes mellitus with diabetic chronic kidney disease; N18.9 Chronic kidney disease, unspecified
CPT/HCPCS: 36415; 71045; 80048; 80053; 83880; 84484; 85025; 85027; 93005; 94640; 96372; 96374; 96376; 99285; A9270; G0378; J1940; Q5106

== ENCOUNTER 2021-04-10 15:37 | Inpatient (IN) | payer MEDICARE, SELFPAY ==
[2021-04-10] VITALS (34 sets, daily range): BP systolic 103–150; BP diastolic 58–97; PULSE 72–93; RESP 14–30; TEMP 36.8–37.1; O2SAT 90–100; BMI 30.7
--- NOTE | ~2021-04-10 | XR_ITS ---
XR chest 1V portable 04/10/2021 15:56 Indication: Shortness of breath. History of COPD. CHF. Procedure: AP portable chest Comparison: No prior studies for comparison. Findings: Extensive bilateral airspace disease throughout both lungs. Cardiomegaly. Pacemaker/defibri llator leads are in expected position. Small left pleural effusion. No pneumothorax. Impression: 1: Extensive bilateral airspace disease which may represent pneumonia, edema and/or ARDS. Reviewed, dictated and finalized at location A. Impression: 1: Extensive bilateral airspace disease which may represent pneumonia, edema an d/or ARDS.
--- NOTE | 2021-04-10 15:42 | ED.SOB ---
HPI - SOB/Dyspnea General Chief Complaint: Shortness of Breath/Dyspnea Stated Complaint: SOB Time Seen by Provider: 04/10/21 15:39 Source: EMS and RN notes reviewed Mode of arrival: EMS Limitations: clinical condition History of Present Illness HPI Narrative: Patient is 80 years old white male brought to the emergency room by ambulance from home because sudden onset of severe shortness of breath. Patient arrived to the ED with BiPAP, saturation in the 80s. No family member at the bedside at this time. Patient on chronic 3 L/min of oxygen. Related Data Allergies Allergy/AdvReac Type Severity Reaction Status Date / Time No Known Allergies Allergy Verified 04/10/21 15:44 Review of Systems Review of Systems: ROS unobtainable: Yes unobtainable due to medical condition Exam Narrative: General appearance: Well-developed, well-nourished, labored breathing, restless, agitated Skin: Normal color, pale Head: Normocephalic, nontraumatic Eyes: Clear conjunctiva Chest and respiratory: Generalized diminution of air entry bilaterally, with rales bilaterally Heart: Tachycardia Abdomen: Soft, nontender, no organomegaly, quiet bowel sounds Neurologic: Alert, on BiPAP, Course Course Emergency Course: Improving Vital Signs Vital signs: Vital Signs Temperature 37.1 C 04/10/21 15:38 Pulse Rate 90 04/10/21 15:38 Respiratory Rate 30 H 04/10/21 15:38 Blood Pressure 150/58 H 04/10/21 15:38 Pulse Oximetry 90 04/10/21 15:38 Temperature 37.1 C 04/10/21 15:38 Pulse Rate 90 04/10/21 17:43 Respiratory Rate 24 H 04/10/21 17:43 Blood Pressure 105/63 04/10/21 17:19 Pulse Oximetry 100 04/10/21 17:43 MDM - SOB/Dyspnea MDM Narrative Medical decision making narrative: Sudden onset of shortness of breath. Chest x-ray showed extensive pulmonary edema, flash pulmonary edema is my concern. Patient symptoms resolved immediately after having Lasix 100 mg IV, 2 mg of morphine, Zofran 4 mg IV. Covid swab ordered Differential Diagnosis Differential diagnosis: Likely acute exacerbation of chronic obstructive airways disease and congestive heart failure Lab Data Result diagrams: 04/10/21 16:01 04/10/21 16:01 Labs: Lab Results 09/07/1904/10/21 04/10/21 Range/Units 15:43 16:01 16:01 WBC 8.2 (4.5-10.0) K/mm3 RBC 2.54 L (4.6-6.20) M/mm3 Hgb 9.1 L (14.0-18.0) g/dL Hct 29.5 L (42.0-52.0) % MCV 116.1 H (80-100) fl MCH 35.8 H (26-34) pg MCHC 30.8 L (32-36) g/dl RDW 17.7 H (11.5-14.5) % Plt Count 212 (150-375) k/mm3 MPV 12.0 H (7.4-10.4) fl Immature Gran % (Auto) 1.0 H (0-0.5) % Neut % (Auto) 39.6 L (45.5-73.1) % Lymph % (Auto) 49.0 H (18.3-44.2) % [place] % (Auto) 9.2 H (2.6-8.5) % Eos % (Auto) 1.0 (0-4.4) % Baso % (Auto) 0.2 (0.2-1.2) % Lymph # (Auto) 4.00 H (0.9-3.2) K/mm3 [place] # (Auto) 0.8 H (0.1-0.6) K/mm3 Eos # (Auto) 0.1 (0-0.3) K/mm3 Baso # (Auto) 0.0 (0.0-0.1) K/mm3 Abs Immat Gran (auto) 0.08 H (0.00-0.031) K/mm3 Absolute Neuts (auto) 3.2 (1.3-6.7) K/mm3 Absolute Nucleated RBC 0.1 H (0.0-0.012) K/mm3 Nucleated RBC % 1.5 H (0.0-0.2) % PT (11.1-14.7) Seconds INR APTT (22.3-36.8) SECONDS Expiratory Pressure CMH2O Inspiratory Pressure CMH2O CPAP Pending Sodium (137-145) mmol/L Potassium (3.4-5.0) mmol/L Chloride (98-107) mmol/L Carbon Dioxide (22-30) mmol/L Anion Gap (8-16) mmol/L BUN (9-20) mg/dL Creatinine (0.7-1.3) mg/dL Estim Creat Clear Calc Estimated GFR (59 - ) Glucose (65-110) mg/dL Calcium
--- NOTE | 2021-04-10 15:43 | ECG_ITS ---
Measurements Intervals [place] Rate: 90 P: -1 [place]: 157 QRS: 165 QRSD: 168 T: 0 QT: 402 QTc: 494 Interpretive Statements ELECTRONIC ATRIAL PACEMAKER ELECTRONIC VENTRICULAR PACEMAKER BASELINE ARTIFACT- I, II, III, AVR, AVF, V2-V6 NO FURTHER INTERPRETATION IS POSSIBLE ATYPICAL ECG Electronically Signed On 04-11-2021 7:45:15 CDT by Sanya Stewart D.O.
[2021-04-10 15:49] LABS: Alveolar/Arterial O2 Gradient 597.2 mmHg; Base Excess ABG 1.7 mEq/l (+/-2.0); Fractional Inspired Oxygen 100 %; Oxygen Content ABG 11.4 %vol (16.0-22.0); Oxyhemoglobin 82.2 % THb (90.0-100.0); PO2 FiO2 Ratio Arterial Blood 0.55 %; Total Hemoglobin 9.8 g/dL (12.0-18.0)
[2021-04-10 15:50] LABS: pH ABG 7.296 (7.350-7.450)
[2021-04-10 15:51] LABS: Oxygen Saturation ABG 84.5 % (95.0-100.0)
[2021-04-10 15:52] LABS: Modified Allen's Test Pass; PCO2 ABG 60.8 mmHg (35.0-45.0); Site Drawn RIGHT RADIAL
[2021-04-10] MEDS: FUROSEMIDE INJ 40 MG/4 ML VIAL IV PUSH ×2 (16:04→21:11)
[2021-04-10] MEDS: ONDANSETRON INJ 4 MG/2 ML VIAL IV PUSH (16:04)
[2021-04-10] MEDS: MORPHINE SULFATE (*CRX) 2 MG/ML INJ IV PUSH (16:04)
[2021-04-10 16:09] LABS: Basophils Percent Auto 0.2 % (0.2-1.2); Eosinophils Absolute Auto 0.1 K/mm3 (0-0.3); Hematocrit 29.5 % (42.0-52.0); Hemoglobin 9.1 g/dL (14.0-18.0); Immature Granulocyte Absolute 0.08 K/mm3 (0.00-0.031); Mean Corpuscular HGB Conc 30.8 g/dl (32-36); Mean Corpuscular Hemoglobin 35.8 pg (26-34); Mean Corpuscular Volume 116.1 fl (80-100); Monocytes Absolute Auto 0.8 K/mm3 (0.1-0.6); Monocytes Percent Auto 9.2 % (2.6-8.5); Neutrophils Absolute Auto 3.2 K/mm3 (1.3-6.7); Neutrophils Percent Auto 39.6 % (45.5-73.1); Nucleated Red Blood Cells Absolute Auto 0.1 K/mm3 (0.0-0.012); Nucleated Red Blood Cells Perc 1.5 % (0.0-0.2); Platelet Count Result 212 k/mm3 (150-375); Red Blood Count 2.54 M/mm3 (4.6-6.20); Red Cell Distribution Width 17.7 % (11.5-14.5); White Blood Count 8.2 K/mm3 (4.5-10.0)
[2021-04-10 16:12] LABS: Add Urine Microscopic? YES; Appearance Urine Clear (Clear); Bilirubin Urine Negative (Negative); Blood Urine Negative (Negative); Color Urine Yellow (Yellow); Glucose Urine UA Negative (Negative); Ketones Urine Negative (Negative); Leukocyte Esterase Ur Negative LEU/UL (Negative); Nitrate Urine Positive (Negative); Protein Urine Negative (Negative); RBC Urine 0-2 /hpf (0-2); Specific Grav Ur 1.016 (1.001-1.035); WBC Urine 0-3 /hpf
[2021-04-10 16:19] LABS: INR 1.2; Prothrombin Time 14.8 Seconds (11.1-14.7)
[2021-04-10 16:20] LABS: Partial Thromboplastin Time 33.4 SECONDS (22.3-36.8)
[2021-04-10 16:39] LABS: Alveolar/Arterial O2 Gradient 511.7 mmHg; Base Excess ABG 2.1 mEq/l (+/-2.0); Fractional Inspired Oxygen 100 %; HCO3 ABG 25.9 mEq/l (22.0-26.0); Oxygen Content ABG 13.2 %vol (16.0-22.0); Oxygen Saturation ABG 99.2 % (95.0-100.0); Oxyhemoglobin 96.3 % THb (90.0-100.0); PCO2 ABG 36.7 mmHg (35.0-45.0); PO2 ABG 164.6 mmHg (80.0-100.0); PO2 FiO2 Ratio Arterial Blood 1.65 %; Total Hemoglobin 9.5 g/dL (12.0-18.0); pH ABG 7.466 (7.350-7.450)
[2021-04-10 16:40] LABS: Device NON-INVASIVE VENT; Modified Allen's Test Pass; Non-Invasive Expiratory Pressure 8 CMH2O; Non-Invasive Inspiratory Pressure 16 CMH2O; Non-Invasive Vent Rate 16 /MIN; Site Drawn RIGHT RADIAL
[2021-04-10 17:13] LABS: Alanine Aminotransferase 20 U/L (4-50); Albumin Level 3.8 g/dL (3.5-5.1); Alkaline Phosphatase 60 U/L (38-126); Anion Gap 9 mmol/L (8-16); Aspartate Amino Transferase 33 U/L (17-59); Bilirubin,Total 0.5 mg/dL (0.2-1.3); Blood Urea Nitrogen 33 mg/dL (9-20); Calcium 8.7 mg/dL (8.4-10.2); Carbon Dioxide 27 mmol/L (22-30); Chloride 99 mmol/L (98-107); Estimated Glomerular Filt Rate 42; Glucose 252 mg/dL (65-110); Magnesium 2.4 mg/dL (1.6-2.3); Potassium 5.2 mmol/L (3.4-5.0); Sodium 135 mmol/L (137-145)
[2021-04-10 17:26] LABS: NT Pro B Type Natriuretic Pept 2050 pg/mL (5-100); Troponin I < 0.012 ng/mL (0.000-0.034)
[2021-04-10 20:39] LABS: Troponin I < 0.012 ng/mL (0.000-0.034)
--- NOTE | 2021-04-10 20:44 | PM.IMHP ---
H&P: HPI History of Present Illness Date/Time: 04/10/21 20:44 this is a 80-year-old male patient who was recently admitted here on 03/21/2021. Please note that the charts need to be merged that the patient was here under the same name with Jr at the am. He has a past medical history of congestive heart failure home O2 it is 3 L with chronic hypoxic respiratory failure, atrial fibrillation anticoagulated, and diabetes type 2. The patient stated that he has taken his medications as required. He states that he has been weighing himself every day. His Lasix has been decreased And he was recently taken off of his Entresto. The patient came to the emergency room today from home with sudden onset of severe shortness of breath. The patient stated that he felt a little short of breath last night he took an extra Lasix yesterday but this did not seem to help. The patient was placed on a BiPAP EN route to the hospital. His O2 saturation was 80%. There were no family members at the bedside. The patient is chronically on oxygen at 3 L per nasal cannula which the patient stated he uses consistently. H&H is 9.1 and 29.5. Patient's initial ABGs pH 7.296, CO2 16.8, PO2 was 55.0 bicarb 29.0 O2 saturation 84.5. After the patient had been on the BiPAP for several hours repeat ABGs were 7.466 PO2 was 164.6. Patient's BiPAP settings 16/8 with a 80% bleed in oxygen and rate of 16. Chest x-ray was read as extensive bilateral airspace disease which may represent pneumonia, edema and/or ARDS. The patient was given Lasix, Zofran and morphine in the emergency room. Creatinine 1.6 blood sugar 252. BNP 2049. The patient is being admitted to inpatient services on the date of service 04/10/2021 Chief Complaint: Shortness of breath Review of Systems Review of Systems: All systems reviewed & are unremarkable except as noted in HPI and below Constitutional: Constitutional: Reports as per HPI and Reports no additional constitutional complaints Eyes: Eyes: Reports as per HPI and Reports no additional eye complaints ENT: Reports system reviewed and no additional complaints, except as documented and Reports Normal hearing present Cardiovascular: Cardiovascular: Reports no additional cardiovascular complaints Respiratory: Respiratory: Reports no additional respiratory complaints and Reports no additional respiratory complaints Gastrointestinal: Gastrointestinal: Reports as per HPI and Reports no additional gastrointestinal complaints Musculoskeletal: Musculoskeletal: Reports no additional musculoskeletal complaints Integumentary/Breasts: Skin/Breast: Reports system reviewed and no additional complaints, except as docu and Reports as per HPI Neurologic: Reports system reviewed and no additional complaints, except as documented, Reports as per HPI and Reports Normal hearing present Psychiatric: Psychiatric: Reports no additional psychiatric complaints and Reports as per HPI Endocrine: Endocrine: Reports no additional endocrine complaints Hematologic/Lymphatic: Hematologic/Lymphatic: Reports no additional hematologic/lymphatic complaints Allergic/Immunologic: Allergic/Immunologic: Reports no additional allergic/immunologic complaints [facility] Past Medical History Medical History (Updated 04/10/21 @ 21:14 by Aurora Cornejo NP) Anemia Atrial fibrillation BPH (benign prostatic hyperplasia) CAD (coronary artery disease) Chronic respiratory failure with hypoxia Oxygen at 3 L per nasal cannula DM2 (diabetes mellitus, type 2) Hyperlipidemia Hypertension Ischemic cardiomyopathy Obstructive sleep apnea Surgical History Surgical History (Updated 04/10/21 @ 20:59 by Aurora Cornejo NP) AICD (automatic cardioverter/defibrillator) present H/O angioplasty H/O cardiac radiofrequency ablation H/O heart artery stent LAD, RCA History of lumbar laminectomy S/P biventricular cardiac pacemaker procedure Family History Family History (Updated 04/10/21 @ 21:01 by Lyle
--- NOTE | 2021-04-10 20:52 | PC.NURSE ---
admission questions answered by spouse per phone call. stated that she left a medication list with er.
--- NOTE | 2021-04-10 21:49 | ADMGEN ---
This patient, Freddy Mireles, was admitted to IMU Room 213-2099. Patient/family oriented to hospital policies and general routines including ID bracelet, bed and alarms, visiting hours, pain management, procedures, bathroom and other care routines, personal items, smoking policy, room service/diet, and visiting hours. Information on how to activate the Rapid Response Team has been discussed. Patient/Family are encouraged to report perceived risks to care and to ask questions if they do not understand what they are told or what they should do.
[2021-04-10 21:58] LABS: Anion Gap 7 mmol/L (8-16); Blood Urea Nitrogen 32 mg/dL (9-20); Calcium 8.6 mg/dL (8.4-10.2); Carbon Dioxide 32 mmol/L (22-30); Chloride 97 mmol/L (98-107); Estimated Glomerular Filt Rate 42; Glucose 128 mg/dL (65-110); Potassium 4.4 mmol/L (3.4-5.0); Sodium 136 mmol/L (137-145)
[2021-04-10 23:33] LABS: Troponin I 0.012 ng/mL (0.000-0.034)
[2021-04-11] VITALS (24 sets, daily range): BP systolic 97–109; BP diastolic 43–59; PULSE 71–91; RESP 18–36; TEMP 36.4–36.8; O2SAT 90–100
--- NOTE | 2021-04-11 | ECHO_ITS ---
Patient Info Name: Freddy Mireles Age: 80 years : 1940 Gender: Male Ht: 73 in Wt: 197 lbs BSA: 2.15 m2 HR: 88 bpm BP: 97 / 49 mmHg Heart Rhythm: Sinus Rhythm Technical Quality: Fair Exam Date: 04/11/2021 3:01 PM Exam Location: [facility] Pulmonary Exam Room: 213 Patient Status: Inpatient Admit Date: 04/10/2021 Staff Ordering Physician: Aurora Cornejo NP Wash Oil Cooler Operator: Yaritza Wilkinson RDCS Attending Provider: Jaz Arreaga MD Referring Physician: Clemente SHAW; Exam Type: CA echo doppler color flow Study Info Indications - PPM AFIB ICM - exacerbation CHF Complete two-dimensional, color flow and Doppler transthoracic echocardiogram is performed. Summary 1. Complete two-dimensional, color flow and Doppler transthoracic echocardiogram is performed. 2. Left ventricular chamber dimension is normal. 3. Left ventricular systolic function is normal, estimated at 50-55%. 4. Linear artifact in right ventricle suggestive of catheter(s), pacemaker lead(s), or ICD lead(s). 5. Left atrial chamber dimension is moderately enlarged. 6. There is mild mitral valve regurgitation. Left Ventricle Left ventricular chamber dimension is normal. Left ventricular systolic function is normal, estimated at 50-55%. The left ventricular diastolic function is grade I diastolic dysfunction. Right Ventricle Right ventricular chamber dimension is normal. Linear artifact in right ventricle suggestive of catheter(s), pacemaker lead(s), or ICD lead(s). Left Atria Left atrial chamber dimension is moderately enlarged. Right Atria Right atrial chamber dimension is normal. Aortic Valve The aortic valve is normal. Pulmonic Valve The pulmonic valve is not well visualized. Mitral Valve The mitral valve has normal leaflets. There is mild mitral valve regurgitation. Tricuspid Valve The tricuspid valve leaflets are normal. Pericardium/Pleural The pericardium appears normal. Aorta The aortic root size at the sinus of Valsalva is normal. Left Ventricular Outflow Tract Name Value Normal LVOT 2D LVOT Diameter 2.1 cm LVOT Doppler LVOT Peak Gradient 4 mmHg LVOT Mean Gradient 2 mmHg LVOT VTI 22 cm LVOT VTI/AV VTI Ratio 0.9 LVOT Stroke Volume 71 ml LVOT CO 14.5 l/min LVOT CI 6.8 l/min/m2 Pulmonic Valve Name Value Normal PV Doppler PV Peak Gradient 4 mmHg Mitral Valve Name Value Normal MV Doppler
[2021-04-11] MEDS: PREGABALIN (*CRX) 50 MG CAPSULE 100 MG PO ×3 (00:55→16:25)
[2021-04-11] MEDS: carvediloL 3.125 MG TABLET PO (00:56)
[2021-04-11] MEDS: MEXILETINE HCL 150 MG CAPSULE PO ×3 (00:56→16:26)
[2021-04-11] MEDS: APIXABAN 5 MG TABLET PO ×3 (00:56→16:26)
[2021-04-11 05:14] LABS: Eosinophils Percent Auto 1.2 % (0-4.4); Hematocrit 22.9 % (42.0-52.0); Hemoglobin 7.1 g/dL (14.0-18.0); Immature Granulocyte Absolute 0.04 K/mm3 (0.00-0.031); Immature Granulocyte Percent A 1.2 % (0-0.5); Lymphocytes Percent Auto 36.1 % (18.3-44.2); Mean Corpuscular Hemoglobin 35.9 pg (26-34); Mean Corpuscular Volume 115.7 fl (80-100); Mean Platelet Volume 11.2 fl (7.4-10.4); Monocytes Absolute Auto 0.4 K/mm3 (0.1-0.6); Monocytes Percent Auto 12.7 % (2.6-8.5); Neutrophils Absolute Auto 1.6 K/mm3 (1.3-6.7); Neutrophils Percent Auto 48.8 % (45.5-73.1); Nucleated Red Blood Cells Perc 0.6 % (0.0-0.2); Platelet Count Result 141 k/mm3 (150-375); Red Blood Count 1.98 M/mm3 (4.6-6.20); Red Cell Distribution Width 17.5 % (11.5-14.5); White Blood Count 3.3 K/mm3 (4.5-10.0)
[2021-04-11 05:32] LABS: Anion Gap 4 mmol/L (8-16); Blood Urea Nitrogen 30 mg/dL (9-20); Calcium 8.2 mg/dL (8.4-10.2); Carbon Dioxide 33 mmol/L (22-30); Chloride 99 mmol/L (98-107); Estimated CRCL calculation 44 ml/min; Estimated Glomerular Filt Rate 53; Glucose 105 mg/dL (65-110); Potassium 3.7 mmol/L (3.4-5.0); Sodium 136 mmol/L (137-145)
--- NOTE | 2021-04-11 06:00 | ECG_ITS ---
Measurements Intervals [place] Rate: 89 P: -30 MT: 167 QRS: 186 QRSD: 152 T: 67 QT: 425 QTc: 519 Interpretive Statements ELECTRONIC ATRIAL PACEMAKER ELECTRONIC VENTRICULAR PACEMAKER NO FURTHER INTERPRETATION IS POSSIBLE ATYPICAL ECG Electronically Signed On 04-11-2021 9:34:16 CDT by Sanya Stewart D.O.
--- NOTE | 2021-04-11 07:38 | PM.IMPN ---
Progress Note: A&P Assessment and Plan (1) Acute exacerbation of congestive heart failure: Assessment and Plan: 40 IV BID lasix hold beta bubba for risk of cardiogenic shock hold antihypertensive given SBP in 90s resume Entresto when BP allowing Exacerbation likely triggered by medication nonadherence obtain echocardiogram cards consult as necessary (2) Chronic respiratory failure with hypoxia: Assessment and Plan: The patient is typically oxygen 3 L per nasal cannula. He also has sleep apnea continue with his CPAP machine. Continue with home inhalers. (3) DM2 (diabetes mellitus, type 2): Assessment and Plan: Accu-Cheks AC and HS with sliding scale insulin. The patient had been on metformin at 1 point. Patient has a creatinine of 1.6 with a GFR 42. I will hold off on his metformin at this time. (4) Hypertension: Assessment and Plan: Hold meds as pt is hypotensive at this time (5) Hyperlipidemia: Assessment and Plan: Continue with home medications. It looks like the patient had been on rosuvastatin his last admission. (6) Obstructive sleep apnea: Assessment and Plan: Continue with home settings for CPAP. (7) CAD (coronary artery disease): Assessment and Plan: Continue with home medications. (8) Anemia: Assessment and Plan: Myelodysplastic syndrome. Patient has been seen by Dr. piper. There was a note from hematology that he is on Procrit. Chronic anemia to 9.1 - down to 7.1 today, will obtain another h&H at noon may need to hold Eliquis Additional Plan will discuss why pt is on eliquis - may need to hold if hgb drop is true & sustained on pm H&H continue diuresis while trying to maintain BP Time Spent With Patient Time with patient: less than 15 minutes Subjective Date/time seen: 04/11/21 07:38 no acute medical complaints Review of Systems Review of Systems: All systems reviewed & are unremarkable except as noted in HPI and below Exam Neck: Neck: no JVD Resp: Other: diffuse crackles all lung monsalve Cardio: Rate: regular rate Rhythm: regular rhythm Other: fl overload on exam GI: Inspection: non-distended GI Palp: Yes Soft to palpation Objective Data Vital Signs Vital Signs: Vital Signs - 24 hr 04/10/21 15:38 04/10/21 15:55 04/10/21 16:06 Temperature 98.8 F Pulse Rate 90 92 91 Respiratory Rate 30 H 30 H 26 H Blood Pressure 150/58 H Pulse Oximetry 90 97 100 04/10/21 16:07 04/10/21 16:15 04/10/21 16:16 Temperature Pulse Rate 92 90 90 Respiratory Rate 24 H 21 H 20 Blood Pressure 124/61 113/58 L Pulse Oximetry 100 100 100 04/10/21 16:22 04/10/21 16:30 04/10/21 16:31 Temperature Pulse Rate 89 90 Respiratory Rate 18 Blood Pressure Pulse Oximetry 98 100 04/10/21 16:45 04/10/21 17:00 04/10/21 17:15 Temperature Pulse Rate 89 90 90 Respiratory Rate 17 17 16 Blood Pressure Pulse Oximetry 100 100 100 04/10/21 17:19 04/10/21 17:21 04/10/21 17:30 Temperature Pulse Rate 90 90 Respiratory Rate 14 16 Blood Pressure 105/63 Pulse Oximetry 100 98 100 04/10/21 17:31 04/10/21 17:43 04/10/21 17:45 Temperature Pulse Rate 90 90 90 Respiratory Rate 14 24 H 16 Blood Pressure 103/61 Pulse Oximetry 100 100 100 04/10/21 17:46 04/10/21 18:00 04/10/21 18:01 Temperature Pulse Rate 90 90 90 Respiratory Rate 14 16 14 Blood Pressure 108/58 L 106/59 L Pulse Oximetry 100 100 100 04/10/21 18:15 04/10/21 18:16 04/10/21 18:30 Temperature Pulse Rate 90 90 89 Respiratory Rate 14 15 19 Blood Pressure 104/63 Pulse Oximetry 100 100 100 04/10/21 18:31 04/10/21 18:45 04/10/21 18:46 Temperature Pulse Rate 90 89 90 Respiratory Rate 16 19 16 Blood Pressure 107/64 107/58 L Pulse Oximetry 100 100 100 04/10/21 19:00 04/10/21 19:01 04/10/21 19:15 Temperature Pulse Rate 90 89 90 Respiratory Rate 14 15 14 Blood Pressure 107/61 Pulse Oximetry 100 100 100
[2021-04-11] MEDS: FUROSEMIDE INJ 40 MG/4 ML VIAL IV PUSH ×2 (08:55→20:47)
[2021-04-11] MEDS: TAMSULOSIN HCL 0.4 MG CAPSULE PO (08:57)
[2021-04-11] MEDS: ROSUVASTATIN 5 MG TABLET PO (08:57)
[2021-04-11] MEDS: THERAPEUTIC MULTIVITAMINS/MINERALS TAB (*BKC) 1 TABLET BY MOUTH (08:57)
[2021-04-11] MEDS: ROFLUMILAST 500 MCG TABLET PO (08:57)
[2021-04-11] MEDS: FINASTERIDE 5 MG TABLET PO (08:58)
[2021-04-11] MEDS: CYANOCOBALAMIN 500 MCG TABLET PO (08:58)
[2021-04-11] MEDS: ASPIRIN 81 MG ENTERIC TABLET PO (08:59)
[2021-04-11] MEDS: CHOLECALCIFEROL 1,000 UNITS TABLET 2000 UNITS BY MOUTH (08:59)
[2021-04-11] MEDS: AMITRIPTYLINE HCL 10 MG TABLET PO (09:00)
[2021-04-11] MEDS: CLOPIDOGREL BISULFATE 75 MG TABLET PO (09:00)
[2021-04-11 13:06] LABS: Hematocrit 24.3 % (42.0-52.0); Hemoglobin 7.4 g/dL (14.0-18.0)
[2021-04-11 13:55] LABS: Device OTHER DEVICE
[2021-04-11] MEDS: FENOFIBRATE NANOCRYSTALLIZED 145 MG TABLET PO (16:26)
[2021-04-11 18:39] LABS: SARS-CoV-2 RNA PCR Negative
[2021-04-12] VITALS (13 sets, daily range): BP systolic 97–106; BP diastolic 47–53; PULSE 87–101; RESP 16–24; TEMP 36.4–37.3; O2SAT 92–100
[2021-04-12 05:00] LABS: Basophils Percent Auto 0.3 % (0.2-1.2); Eosinophils Absolute Auto 0.1 K/mm3 (0-0.3); Eosinophils Percent Auto 1.5 % (0-4.4); Hematocrit 23.2 % (42.0-52.0); Hemoglobin 7.3 g/dL (14.0-18.0); Immature Granulocyte Absolute 0.03 K/mm3 (0.00-0.031); Immature Granulocyte Percent A 0.9 % (0-0.5); Lymphocytes Absolute Auto 1.26 K/mm3 (0.9-3.2); Lymphocytes Percent Auto 37.7 % (18.3-44.2); Mean Corpuscular HGB Conc 31.5 g/dl (32-36); Mean Corpuscular Hemoglobin 35.8 pg (26-34); Mean Corpuscular Volume 113.7 fl (80-100); Mean Platelet Volume 11.5 fl (7.4-10.4); Monocytes Absolute Auto 0.5 K/mm3 (0.1-0.6); Monocytes Percent Auto 15.6 % (2.6-8.5); Neutrophils Absolute Auto 1.5 K/mm3 (1.3-6.7); Nucleated Red Blood Cells Perc 0.6 % (0.0-0.2); Platelet Count Result 142 k/mm3 (150-375); Red Blood Count 2.04 M/mm3 (4.6-6.20); Red Cell Distribution Width 17.4 % (11.5-14.5); White Blood Count 3.3 K/mm3 (4.5-10.0)
[2021-04-12 05:15] LABS: Alanine Aminotransferase 16 U/L (4-50); Albumin Level 3.2 g/dL (3.5-5.1); Alkaline Phosphatase 40 U/L (38-126); Anion Gap 6 mmol/L (8-16); Aspartate Amino Transferase 23 U/L (17-59); Bilirubin,Total 0.7 mg/dL (0.2-1.3); Blood Urea Nitrogen 28 mg/dL (9-20); Calcium 8.3 mg/dL (8.4-10.2); Carbon Dioxide 33 mmol/L (22-30); Chloride 98 mmol/L (98-107); Estimated CRCL calculation 48 ml/min; Estimated Glomerular Filt Rate 58; Glucose 104 mg/dL (65-110); Magnesium 2.2 mg/dL (1.6-2.3); Sodium 137 mmol/L (137-145)
[2021-04-12] MEDS: ROSUVASTATIN 5 MG TABLET PO (09:12)
[2021-04-12] MEDS: ROFLUMILAST 500 MCG TABLET PO (09:12)
[2021-04-12] MEDS: FUROSEMIDE INJ 40 MG/4 ML VIAL IV PUSH ×2 (09:12→20:00)
[2021-04-12] MEDS: MEXILETINE HCL 150 MG CAPSULE PO ×2 (09:13→17:36)
[2021-04-12] MEDS: CYANOCOBALAMIN 500 MCG TABLET PO (09:13)
[2021-04-12] MEDS: CLOPIDOGREL BISULFATE 75 MG TABLET PO (09:13)
[2021-04-12] MEDS: ASPIRIN 81 MG ENTERIC TABLET PO (09:13)
[2021-04-12] MEDS: CHOLECALCIFEROL 1,000 UNITS TABLET 2000 UNITS BY MOUTH (09:13)
[2021-04-12] MEDS: FINASTERIDE 5 MG TABLET PO (09:14)
[2021-04-12] MEDS: TAMSULOSIN HCL 0.4 MG CAPSULE PO (09:14)
[2021-04-12] MEDS: FENOFIBRATE NANOCRYSTALLIZED 145 MG TABLET PO (09:14)
[2021-04-12] MEDS: APIXABAN 5 MG TABLET PO ×2 (09:14→17:35)
[2021-04-12] MEDS: AMITRIPTYLINE HCL 10 MG TABLET PO (09:14)
[2021-04-12] MEDS: THERAPEUTIC MULTIVITAMINS/MINERALS TAB (*BKC) 1 TABLET BY MOUTH (09:15)
[2021-04-12] MEDS: PREGABALIN (*CRX) 50 MG CAPSULE 100 MG PO ×3 (09:19→17:35)
--- NOTE | 2021-04-12 12:34 | PDONCCN ---
HPI - Date of Consult Date/Time: 04/12/21 12:34 Requesting Physician: Jaz Arreaga MD Primary Care Provider: Jesus Avelar MD - Consult Narrative Reason for consult: Anemia of chronic kidney disease Narrative: Freddy Mireles Jr. 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 He also has a history of congestive heart failure on home oxygen with chronic hypoxic respiratory failure and atrial fibrillation along with type 2 diabetes. He came into the hospital with increasing shortness of breath and was admitted to the hospital with worsening of CHF. He was started on IV diuresis with improvement in his breathing. Initial hemoglobin was 9.1 now November 7.3. He denies any bleeding including melena hematochezia. Patient is on Eliquis as well as on aspirin. Review of Systems - Review of Systems All systems reviewed & are unremarkable except as noted in HPI and bel - Neurologic Reports system reviewed and no additional complaints, except as documented, Reports hearing normal [facility] Medical History: Medical History (This Medical Record has been edited. Action required.) Abscess Acute and chronic respiratory failure ([id number]) Acute kidney injury Acute respiratory failure with hypercapnia Acute respiratory failure with hypoxia Anemia Atrial fibrillation Atrial fibrillation BPH (benign prostatic hyperplasia) BPH (benign prostatic hyperplasia) CAD (coronary artery disease) CHF (congestive heart failure) Echocardiogram August 2020: EF of 45%, diastolic dysfunction with elevated left heart pressures, mild left atrial enlargement CHF (congestive heart failure) Chronic anemia Chronic hypoxemic respiratory failure Chronic respiratory failure with hypoxia Oxygen at 3 L per nasal cannula Coronary artery disease Diabetes mellitus DM2 (diabetes mellitus, type 2) DVT prophylaxis Essential hypertension Hyperlipidemia Hyperlipidemia Hypertension Ischemic cardiomyopathy EF of 20-25% on cardiac catheterization June 2020 Ischemic cardiomyopathy Megaloblastic anemia Obstructive sleep apnea NICOLE (obstructive sleep apnea) Shock Vitamin D deficiency Surgical History: Surgical History (This Medical Record has been edited. Action required.) AICD (automatic cardioverter/defibrillator) present H/O angioplasty H/O cardiac radiofrequency ablation H/O heart artery stent LAD, RCA History of angioplasty History of aortic valve replacement History of cardiac catheterization Right coronary intervention in the remote past, LAD intervention about 20 years ago. Repeat catheterization 2017 at [facility] with mid RCA intervention, catheterization June 2020 demonstrated EF of 20-25% with no new coronary artery occlusions History of coronary artery stent placement 2-3 History of lumbar laminectomy History of lumbar laminectomy Hx of atrioventricular node ablation Onset Date: ~2018 [facility] Presence of biventricular AICD Onset Date: ~12/2019 S/P biventricular cardiac pacemaker procedure S/P biventricular cardiac pacemaker procedure Status post ablation of ventricular arrhythmia Onset Date: ~05/2020 [facility] Family History: Family History (This Medical Record has been edited. Action required.) Sibling Diabetes mellitus Mother Dementia Parkinsons disease Father Hypertension Chronic obstructive pulmonary disease Heart disease Sibling Diabetes mellitus Mother Parkinsons disease Dementia Father Hypertension Chronic obstructive pulmonary disease Heart disease - Social History Social History: Social History (This Medical Record has been edited. Action required.) Gender Identity: Gender identity (if verbalized by the patient): Male Sexual Orientation: Sexual Orientation (if Verbalized by the Patient): Straight or Heterosexual Alc
--- NOTE | 2021-04-12 18:03 | PM.IMPN ---
Progress Note: A&P Assessment and Plan (1) Dietary counseling and surveillance: Code(s): Z71.3 - Dietary counseling and surveillance Status: Acute (2) History of angioplasty: Code(s): Z98.62 - Peripheral vascular angioplasty status (3) Hyperlipidemia: Qualifiers: Hyperlipidemia type: unspecified Qualified Code(s): E78.5 - Hyperlipidemia, unspecified Code(s): E78.5 - Hyperlipidemia, unspecified Status: Chronic (4) Coronary artery disease: Qualifiers: Coronary Disease-Associated Artery/Lesion type: [place] artery [place] vs. transplanted heart: [place] heart Associated angina: without angina Qualified Code(s): I25.10 - Atherosclerotic heart disease of [place] coronary artery without angina pectoris Code(s): I25.10 - Atherosclerotic heart disease of [place] coronary artery without angina pectoris Status: Acute (5) Chronic hypoxemic respiratory failure: Code(s): J96.11 - Chronic respiratory failure with hypoxia Status: Inactive (6) Chronic respiratory failure with hypoxia and hypercapnia: Code(s): J96.11 - Chronic respiratory failure with hypoxia; J96.12 - Chronic respiratory failure with hypercapnia Status: Acute (7) Diabetes mellitus: Qualifiers: Diabetes mellitus type: type 2 Diabetes mellitus halfway insulin use: without intermediate accountant use Diabetes mellitus complication status: without complication Qualified Code(s): E11.9 - Type 2 diabetes mellitus without complications Code(s): E11.9 - Type 2 diabetes mellitus without complications Status: Chronic (8) Pulmonary edema: Code(s): J81.1 - Chronic pulmonary edema Status: Acute Additional Plan chf decompensation, diuresing well sympotms iproving, and he is geting close to baseline At baseline O2 supplementation will continue diuresis, and monitoring on tle known myeldopysplastic disease well controlled, hgb stable, heme/onc seeing, appreciate recs Time Spent With Patient Time with patient: less than 15 minutes Subjective Date/time seen: 04/12/21 18:03 resting comfortably in bed. no acute medical complaints still on NC but at baseline O2 support Review of Systems Review of Systems: All systems reviewed & are unremarkable except as noted in HPI and below Exam Const: General: no acute distress Neck: Neck: no JVD Resp: Effort & Inspection: normal respiratory effort Auscultation: clear to auscultation bilaterally Cardio: Rate: regular rate Rhythm: regular rhythm GI: GI Palp: Yes Soft to palpation and No Tenderness to palpation present (GI) Objective Data Vital Signs Vital Signs: Vital Signs - 24 hr 04/11/21 20:00 04/11/21 22:00 04/11/21 22:10 Temperature 97.6 F Pulse Rate 89 90 Respiratory Rate 20 28 H Blood Pressure 107/43 L Pulse Oximetry 97 99 04/11/21 23:19 04/12/21 00:00 04/12/21 02:00 Temperature 97.7 F Pulse Rate 71 91 89 Respiratory Rate 18 18 Blood Pressure 103/50 L Pulse Oximetry 98 98 04/12/21 03:46 04/12/21 04:00 04/12/21 06:00 Temperature 97.8 F Pulse Rate 91 89 Respiratory Rate 23 H 22 H Blood Pressure 101/51 L Pulse Oximetry 99 99 04/12/21 08:00 04/12/21 09:13 04/12/21 12:00 Temperature 97.5 F L 98.3 F Pulse Rate 90 90 89 Respiratory Rate 18 16 Blood Pressure 102/53 L 100/49 L Pulse Oximetry 95 97 04/12/21 16:00 04/12/21 17:36 Temperature 99.1 F Pulse Rate 91 90 Respiratory Rate 18 Blood Pressure 97/47 L Pulse Oximetry 94 Intake/Output Intake/Output: Intake & Output 04/09/21 04/10/21 04/11/21 04/12/21 23:59 23:59 23:59 23:59 Intake Total 1930 2620 Output Total 2750 1100 Balance -820 1520 Meds/Results Medications: Active Medications Generic Name Dose Route Start Last Admin Trade Name Glenn PRN Reason Stop Dose Admin Amitriptyline HCl 10 mg 04/11/21 09:00 04/12/21 09:14 Amitriptyline Hcl 10 Mg Tablet PO 10 mg DAILY
[2021-04-13] VITALS (13 sets, daily range): BP systolic 95–111; BP diastolic 44–55; PULSE 87–99; RESP 14–24; TEMP 36.4–37.3; O2SAT 93–100
[2021-04-13 04:56] LABS: Basophils Percent Auto 0.4 % (0.2-1.2); Eosinophils Absolute Auto 0.1 K/mm3 (0-0.3); Eosinophils Percent Auto 2.6 % (0-4.4); Hemoglobin 7.3 g/dL (14.0-18.0); Immature Granulocyte Absolute 0.04 K/mm3 (0.00-0.031); Immature Granulocyte Percent A 1.5 % (0-0.5); Lymphocytes Absolute Auto 1.01 K/mm3 (0.9-3.2); Mean Corpuscular HGB Conc 30.4 g/dl (32-36); Mean Corpuscular Hemoglobin 35.3 pg (26-34); Mean Corpuscular Volume 115.9 fl (80-100); Monocytes Absolute Auto 0.4 K/mm3 (0.1-0.6); Monocytes Percent Auto 13.9 % (2.6-8.5); Neutrophils Absolute Auto 1.2 K/mm3 (1.3-6.7); Neutrophils Percent Auto 44.6 % (45.5-73.1); Nucleated Red Blood Cells Perc 0.7 % (0.0-0.2); Platelet Count Result 133 k/mm3 (150-375); Red Blood Count 2.07 M/mm3 (4.6-6.20); Red Cell Distribution Width 17.5 % (11.5-14.5); White Blood Count 2.7 K/mm3 (4.5-10.0)
[2021-04-13 05:11] LABS: Alanine Aminotransferase 15 U/L (4-50); Albumin Level 3.1 g/dL (3.5-5.1); Alkaline Phosphatase 44 U/L (38-126); Anion Gap 6 mmol/L (8-16); Aspartate Amino Transferase 22 U/L (17-59); Bilirubin,Total 0.7 mg/dL (0.2-1.3); Blood Urea Nitrogen 24 mg/dL (9-20); Calcium 8.1 mg/dL (8.4-10.2); Carbon Dioxide 34 mmol/L (22-30); Chloride 97 mmol/L (98-107); Estimated CRCL calculation 48 ml/min; Estimated Glomerular Filt Rate 58; Glucose 108 mg/dL (65-110); Magnesium 2.1 mg/dL (1.6-2.3); Phosphorus 2.9 mg/dL (2.5-4.5); Potassium 3.5 mmol/L (3.4-5.0); Sodium 137 mmol/L (137-145)
[2021-04-13] MEDS: MEXILETINE HCL 150 MG CAPSULE PO ×2 (08:59→17:26)
[2021-04-13] MEDS: FENOFIBRATE NANOCRYSTALLIZED 145 MG TABLET PO (08:59)
[2021-04-13] MEDS: FINASTERIDE 5 MG TABLET PO (09:00)
[2021-04-13] MEDS: PREGABALIN (*CRX) 50 MG CAPSULE 100 MG PO ×3 (09:01→17:26)
[2021-04-13] MEDS: AMITRIPTYLINE HCL 10 MG TABLET PO (09:02)
[2021-04-13] MEDS: ROFLUMILAST 500 MCG TABLET PO (09:03)
[2021-04-13] MEDS: CLOPIDOGREL BISULFATE 75 MG TABLET PO (09:03)
[2021-04-13] MEDS: ROSUVASTATIN 5 MG TABLET PO (09:03)
[2021-04-13] MEDS: THERAPEUTIC MULTIVITAMINS/MINERALS TAB (*BKC) 1 TABLET BY MOUTH (09:04)
[2021-04-13] MEDS: CYANOCOBALAMIN 500 MCG TABLET PO (09:04)
[2021-04-13] MEDS: APIXABAN 5 MG TABLET PO ×2 (09:04→17:27)
[2021-04-13] MEDS: TAMSULOSIN HCL 0.4 MG CAPSULE PO (09:05)
[2021-04-13] MEDS: CHOLECALCIFEROL 1,000 UNITS TABLET 2000 UNITS BY MOUTH (09:05)
--- NOTE | 2021-04-13 09:10 | PM.IMPN ---
Progress Note: A&P Assessment and Plan (1) Dietary counseling and surveillance: Code(s): Z71.3 - Dietary counseling and surveillance Status: Acute (2) History of angioplasty: Code(s): Z98.62 - Peripheral vascular angioplasty status (3) Hyperlipidemia: Qualifiers: Hyperlipidemia type: unspecified Qualified Code(s): E78.5 - Hyperlipidemia, unspecified Code(s): E78.5 - Hyperlipidemia, unspecified Status: Chronic (4) Coronary artery disease: Qualifiers: Associated angina: without angina Coronary Disease-Associated Artery/Lesion type: [place] artery [place] vs. transplanted heart: [place] heart Qualified Code(s): I25.10 - Atherosclerotic heart disease of [place] coronary artery without angina pectoris Code(s): I25.10 - Atherosclerotic heart disease of [place] coronary artery without angina pectoris Status: Acute (5) Chronic hypoxemic respiratory failure: Code(s): J96.11 - Chronic respiratory failure with hypoxia Status: Inactive (6) Chronic respiratory failure with hypoxia and hypercapnia: Code(s): J96.11 - Chronic respiratory failure with hypoxia; J96.12 - Chronic respiratory failure with hypercapnia Status: Acute (7) Diabetes mellitus: Qualifiers: Diabetes mellitus complication status: without complication Diabetes mellitus computer terminal operator insulin use: without computer terminal operator use Diabetes mellitus type: type 2 Qualified Code(s): E11.9 - Type 2 diabetes mellitus without complications Code(s): E11.9 - Type 2 diabetes mellitus without complications Status: Chronic (8) Pulmonary edema: Code(s): J81.1 - Chronic pulmonary edema Status: Acute Additional Plan chf decompensation, diuresing well - may need to back off a little given soft BP sympotms iproving, and he is geting close to baseline At baseline O2 supplementation will continue diuresis, and monitoring on tle known myeldopysplastic disease well controlled, hgb stable, heme/onc seeing, appreciate recs Time Spent With Patient Time with patient: less than 15 minutes Subjective Date/time seen: 04/13/21 09:10 resting comfortably in bed Review of Systems Review of Systems: All systems reviewed & are unremarkable except as noted in HPI and below Exam Const: General: no acute distress Neck: Neck: no JVD Resp: Effort & Inspection: normal respiratory effort Auscultation: clear to auscultation bilaterally Cardio: Rate: regular rate Rhythm: regular rhythm GI: GI Palp: Yes Soft to palpation and No Tenderness to palpation present (GI) Objective Data Vital Signs Vital Signs: Vital Signs - 24 hr 04/12/21 09:13 04/12/21 12:00 04/12/21 16:00 Temperature 98.3 F 99.1 F Pulse Rate 90 89 91 Respiratory Rate 16 18 Blood Pressure 100/49 L 97/47 L Pulse Oximetry 97 94 04/12/21 17:36 04/12/21 20:00 04/12/21 23:07 Temperature 98.1 F Pulse Rate 90 89 87 Respiratory Rate 24 H Blood Pressure 106/52 L Pulse Oximetry 92 97 04/12/21 23:08 04/13/21 00:00 04/13/21 02:26 Temperature 97.5 F L Pulse Rate 88 90 90 Respiratory Rate 24 H 18 18 Blood Pressure 111/55 L Pulse Oximetry 99 100 97 04/13/21 04:00 04/13/21 08:00 04/13/21 08:59 Temperature 99.0 F 97.6 F Pulse Rate 89 91 90 Respiratory Rate 20 18 Blood Pressure 97/50 L 95/51 L Pulse Oximetry 100 93 Intake/Output Intake/Output: Intake & Output 04/10/21 04/11/21 04/12/21 04/13/21 23:59 23:59 23:59 23:59 Intake Total 1930 3960 250 Output Total 2750 1450 1100 Balance -820 2510 -850 Meds/Results Medications: Active Medications Generic Name Dose Route Start Last Admin Trade Name Millerq PRN Reason Stop Dose Admin Amitriptyline HCl 10 mg 04/11/21 09:00 04/13/21 09:02 Amitriptyline Hcl 10 Mg Tablet PO 10 mg DAILY LAKESHIA Administration Apixaban 5 mg 04/10/21 23:45 04/13/21 09:04 Apixaban 5 Mg Tablet PO 5 mg BID LAKESHIA Administration Aspiri
[2021-04-13] MEDS: FUROSEMIDE 80 MG TABLET PO (17:25)
[2021-04-14] VITALS (8 sets, daily range): BP systolic 97–98; BP diastolic 44–51; PULSE 88–98; RESP 16; TEMP 36.2–36.5; O2SAT 93–96
[2021-04-14 05:51] LABS: Hematocrit 24.1 % (42.0-52.0); Hemoglobin 7.4 g/dL (14.0-18.0); Mean Corpuscular HGB Conc 30.7 g/dl (32-36); Mean Corpuscular Hemoglobin 34.7 pg (26-34); Mean Corpuscular Volume 113.1 fl (80-100); Mean Platelet Volume 10.9 fl (7.4-10.4); Platelet Count Result 144 k/mm3 (150-375); Red Blood Count 2.13 M/mm3 (4.6-6.20); Red Cell Distribution Width 17.2 % (11.5-14.5); White Blood Count 2.9 K/mm3 (4.5-10.0)
[2021-04-14 06:03] LABS: Alanine Aminotransferase 17 U/L (4-50); Albumin Level 3.1 g/dL (3.5-5.1); Alkaline Phosphatase 44 U/L (38-126); Anion Gap 4 mmol/L (8-16); Aspartate Amino Transferase 31 U/L (17-59); Bilirubin,Total 0.7 mg/dL (0.2-1.3); Blood Urea Nitrogen 21 mg/dL (9-20); Calcium 8.4 mg/dL (8.4-10.2); Carbon Dioxide 35 mmol/L (22-30); Chloride 99 mmol/L (98-107); Estimated CRCL calculation 48 ml/min; Estimated Glomerular Filt Rate 58; Glucose 114 mg/dL (65-110); Magnesium 2.1 mg/dL (1.6-2.3); Phosphorus 3.1 mg/dL (2.5-4.5); Potassium 3.5 mmol/L (3.4-5.0); Sodium 138 mmol/L (137-145)
[2021-04-14 08:07] LABS: Band Neutrophils Percent 2 % (0-6); Lymphocytes Absolute Manual 1.24 K/mm3 (1.1-4.5); Monocytes Absolute Manual 0.08 K/mm3 (0.1-0.90); Monocytes Percent Manual 3 % (3-9); Neutrophils Absolute Manual 1.56 K/mm3 (1.3-6.7); Neutrophils Percent Manual 52 % (46-73); Total Cells Counted 100
[2021-04-14 08:08] LABS: Anisocytosis 1+ (NORMAL); Atypical Lymphocytes Present; Hypochromasia 1+ (NORMAL); Platelet Estimate Adequate (Adequate)
--- NOTE | 2021-04-14 08:09 | PM.IMPN ---
Progress Note: A&P Assessment and Plan (1) Dietary counseling and surveillance: Code(s): Z71.3 - Dietary counseling and surveillance Status: Acute (2) History of angioplasty: Code(s): Z98.62 - Peripheral vascular angioplasty status (3) Hyperlipidemia: Qualifiers: Hyperlipidemia type: unspecified Qualified Code(s): E78.5 - Hyperlipidemia, unspecified Code(s): E78.5 - Hyperlipidemia, unspecified Status: Chronic (4) Coronary artery disease: Qualifiers: Associated angina: without angina Coronary Disease-Associated Artery/Lesion type: [place] artery [place] vs. transplanted heart: [place] heart Qualified Code(s): I25.10 - Atherosclerotic heart disease of [place] coronary artery without angina pectoris Code(s): I25.10 - Atherosclerotic heart disease of [place] coronary artery without angina pectoris Status: Acute (5) Chronic respiratory failure with hypoxia and hypercapnia: Code(s): J96.11 - Chronic respiratory failure with hypoxia; J96.12 - Chronic respiratory failure with hypercapnia Status: Acute (6) Diabetes mellitus: Qualifiers: Diabetes mellitus complication status: without complication Diabetes mellitus senior living insulin use: without long line teamster use Diabetes mellitus type: type 2 Qualified Code(s): E11.9 - Type 2 diabetes mellitus without complications Code(s): E11.9 - Type 2 diabetes mellitus without complications Status: Chronic (7) Pulmonary edema: Code(s): J81.1 - Chronic pulmonary edema Status: Acute Additional Plan chf decompensation, at baseline O2 supplementation diastolic, predominantly left sided heart failure switched from IV to PO Lasix, and I think 80 BID may be his new dose However BP's soft on this regimen known myeldopysplastic disease well controlled, hgb stable, heme/onc seeing, appreciate recs Subjective Date/time seen: 04/14/21 08:09 resting comfortably good spirits breathing at baseline Review of Systems Review of Systems: All systems reviewed & are unremarkable except as noted in HPI and below Exam Const: General: no acute distress Neck: Neck: no JVD Resp: Effort & Inspection: normal respiratory effort Auscultation: clear to auscultation bilaterally Cardio: Rate: regular rate Rhythm: regular rhythm GI: GI Palp: Yes Soft to palpation and No Tenderness to palpation present (GI) Objective Data Vital Signs Vital Signs: Vital Signs - 24 hr 04/13/21 08:59 04/13/21 11:46 04/13/21 16:00 Temperature 97.8 F 98.3 F Pulse Rate 90 90 89 Respiratory Rate 14 18 Blood Pressure 109/54 L 103/50 L Pulse Oximetry 96 96 04/13/21 17:26 04/13/21 19:50 04/13/21 20:00 Temperature 99.1 F Pulse Rate 90 92 Respiratory Rate 22 H Blood Pressure 99/44 L Pulse Oximetry 96 93 04/13/21 22:54 04/13/21 23:00 04/13/21 23:20 Temperature Pulse Rate 88 87 87 Respiratory Rate 24 H 24 H Blood Pressure Pulse Oximetry 97 97 04/14/21 00:00 04/14/21 04:00 04/14/21 04:48 Temperature 97.7 F Pulse Rate 96 96 88 Respiratory Rate 16 Blood Pressure 98/44 L Pulse Oximetry 93 Intake/Output Intake/Output: Intake & Output 04/11/21 04/12/21 04/13/21 04/14/21 23:59 23:59 23:59 23:59 Intake Total 1930 3960 1280 100 Output Total 2750 1450 1900 1750 Balance -820 1026 -096 -6440 Meds/Results Medications: Active Medications Generic Name Dose Route Start Last Admin Trade Name Millerq PRN Reason Stop Dose Admin Amitriptyline HCl 10 mg 04/11/21 09:00 04/13/21 09:02 Amitriptyline Hcl 10 Mg Tablet PO 10 mg DAILY LAKESHIA Administration Apixaban 5 mg 04/10/21 23:45 04/13/21 17:27 Apixaban 5 Mg Tablet PO 5 mg BID LAKESHIA Administration Aspirin 81 mg 04/11/21 09:00 04/13/21 09:02 Aspirin 81 Mg Enteric Tablet PO 05/11/21 08:59 Not Given DAILY [facility] Clopidogrel Bisulfate 75 mg 04/11/21 09:00 04/13/21 09:03 Clopidogrel Bisulfate
[2021-04-14] MEDS: TAMSULOSIN HCL 0.4 MG CAPSULE PO (09:05)
[2021-04-14] MEDS: AMITRIPTYLINE HCL 10 MG TABLET PO (09:05)
[2021-04-14] MEDS: ROSUVASTATIN 5 MG TABLET PO (09:06)
[2021-04-14] MEDS: MEXILETINE HCL 150 MG CAPSULE PO (09:06)
[2021-04-14] MEDS: THERAPEUTIC MULTIVITAMINS/MINERALS TAB (*BKC) 1 TABLET BY MOUTH (09:06)
[2021-04-14] MEDS: CHOLECALCIFEROL 1,000 UNITS TABLET 2000 UNITS BY MOUTH (09:06)
[2021-04-14] MEDS: CYANOCOBALAMIN 500 MCG TABLET PO (09:06)
[2021-04-14] MEDS: FUROSEMIDE 80 MG TABLET PO (09:06)
[2021-04-14] MEDS: FENOFIBRATE NANOCRYSTALLIZED 145 MG TABLET PO (09:07)
[2021-04-14] MEDS: APIXABAN 5 MG TABLET PO (09:07)
[2021-04-14] MEDS: ROFLUMILAST 500 MCG TABLET PO (09:07)
[2021-04-14] MEDS: CLOPIDOGREL BISULFATE 75 MG TABLET PO (09:07)
[2021-04-14] MEDS: FINASTERIDE 5 MG TABLET PO (09:50)
[2021-04-14] MEDS: PREGABALIN (*CRX) 50 MG CAPSULE 100 MG PO ×2 (09:50→13:36)
--- NOTE | 2021-04-14 12:47 | P.CDI_ITS ---
CDI Query Clarification Request -Acute exacerbation of CHF has been documented -04/11 echo summary: EF 50-55%, left ventricuclar diastolic function is grade I diastolic dysfunction. Please further clarify type of CHF: * Systolic * Diastolic * Both systolic and diastolic * Unable to determine <Yaquelin Feliz RN - Last Filed: 04/14/21 12:51>
--- NOTE | 2021-04-14 12:47 | WPDCDIQUERY2 ---
CDI Query Clarification Request -Acute exacerbation of CHF has been documented -04/11 echo summary: EF 50-55%, left ventricuclar diastolic function is grade I diastolic dysfunction. Please further clarify type of CHF: Systolic Diastolic Both systolic and diastolic Unable to determine <Yaquelin Feliz RN - Last Filed: 04/14/21 12:51>
--- NOTE | 2021-04-14 16:01 | PM.DS ---
DS: Admitting Diagnosis Discharge Date April 14, 2021 Admitting Diagnosis Shortness of breath DS: Discharge Diagnosis Discharge Diagnosis (1) Congestive heart failure: Qualifiers: Heart failure chronicity: unspecified Heart failure type: unspecified Qualified Code(s): I50.9 - Heart failure, unspecified Code(s): I50.9 - Heart failure, unspecified Status: Acute DS: Summary Hospital Course Hospital Course: patient is an 80-year-old man with congestive heart failure, several admissions in the last year related to decompensation of congestive heart failure, presenting with shortness of breath. Chest x-ray on admission consistent with fluid overload, troponins not suggestive ACS. EKG also not suggestive of ACS. Patient's symptoms improved dramatically with IV Lasix, 80 b.i.d.. After about 2 days enough fluid was taken off the patient felt that his breathing was back to baseline. Transition patient from IV to p.o. dose, unclear trigger of exacerbation, however it appears likely that inconsistent medication administration and diet are the primary culprits. A good regimen for this patient would be 80 b.i.d. p.o. Lasix in addition to fluid restriction, and a low-sodium diet. He should also continue the rest of his heart failure regimen, and. We are holding Entresto for now, because his systolics after removing the fluid off of him have been in the 90s. Ultimately he should have be able to resume the Entresto, however we will defer to Cardiology outpatient, when they are comfortable adding these. This is also true of the remainder of his antihypertensives which we will hold on discharge given his systolics are in the 90s. We offered to potentially keep him another day to keep an eye on this low blood pressure, however he says that this is his normal blood pressure and every time he goes to an outpatient clinic this is what his blood pressure is. As such we will discharge and have him follow-up with Cardiology to see with a 1 resume the blood pressure medications. Offered placement possibility the patient, however he says his is able take care of him. Resumed all other medications except blood pressure medications on discharge. Continued anticoagulation. Patient also known to have anemia, which is related to myelodysplastic syndrome, trend hemoglobin, no significant drop, benefits and risks assessed and discussed regarding anticoagulation, and both provider and patient agree that at this point continuing anticoagulation is advisable. Status at Discharge Functional status at discharge: independent ambulation Time Spent with Patient Time attestation: Total time spent providing and/or coordinating discharge services: Time spent: Less than 30 minutes Exam Const: General: no acute distress Neck: Neck: no JVD Resp: Effort & Inspection: normal respiratory effort Auscultation: clear to auscultation bilaterally Cardio: Rate: regular rate Rhythm: regular rhythm GI: GI Palp: Yes Soft to palpation and No Tenderness to palpation present (GI) DS: Data Data Completed and Pending Labs on day of discharge: Labs from last 24 hours 04/14/21 04/14/21 05:41 05:41 WBC 2.9 L RBC 2.13 L Hgb 7.4 L Hct 24.1 L MCV 113.1 H MCH 34.7 H MCHC 30.7 L RDW 17.2 H Plt Count 144 L MPV 10.9 H Immature Gran % (Auto) Not Reportable Neut % (Auto) Not Reportable Lymph % (Auto) Not Reportable Jay % (Auto) Not Reportable Eos % (Auto) Not Reportable Baso % (Auto) Not Reportable Lymph # (Auto) Not Reportable Jay # (Auto) Not Reportable Eos # (Auto) Not Reportable Baso # (Auto) Not Reportable Abs Immat Gran (auto) Not Reportable Absolute Neuts (auto) Not Reportable Absolute Nucleated RBC Not Reportable Total Counted 100 Neutrophils % (Manual) 52 Band Neutrophils % 2 Lymphocytes % (Manual) 43.0 Monocytes % (Manual) 3 Nucleated RBC % Not Reportable Abs Neuts (Ma
== END 2021-04-14 16:03 | disposition home or self-care (01) | DRG 291 ==
LOC: ANHED 16:27 → ANHIMU 20:54 → ANH2MED 04-14 14:55 → ANHIMU 04-18 13:26
PROVIDERS: Nurse Practitioner; Admitting Provider Hospitalist; Emergency Provider Emergency Medicine; PCP Internal Medicine; Visit Provider Internal Medicine
DX: I13.0 Hypertensive heart and chronic kidney disease with heart failure and stage 1 through stage 4 chronic kidney disease, or unspecified chronic kidney disease (principal); I50.33 Acute on chronic diastolic (congestive) heart failure; J96.11 Chronic respiratory failure with hypoxia; J44.1 Chronic obstructive pulmonary disease with (acute) exacerbation; J96.12 Chronic respiratory failure with hypercapnia; Z20.822 Contact with and (suspected) exposure to COVID-19; E11.22 Type 2 diabetes mellitus with diabetic chronic kidney disease; N18.30 Chronic kidney disease, stage 3 unspecified; D63.1 Anemia in chronic kidney disease; Z99.81 Dependence on supplemental oxygen; D46.20 Refractory anemia with excess of blasts, unspecified; E78.5 Hyperlipidemia, unspecified; G47.33 Obstructive sleep apnea (adult) (pediatric); I25.10 Atherosclerotic heart disease of native coronary artery without angina pectoris; N40.0 Benign prostatic hyperplasia without lower urinary tract symptoms; I25.5 Ischemic cardiomyopathy; Z79.01 Long term (current) use of anticoagulants; Z79.82 Long term (current) use of aspirin; Z79.84 Long term (current) use of oral hypoglycemic drugs; Z79.899 Other long term (current) drug therapy; Z87.891 Personal history of nicotine dependence; Z95.2 Presence of prosthetic heart valve; Z95.5 Presence of coronary angioplasty implant and graft; Z95.810 Presence of automatic (implantable) cardiac defibrillator
CPT/HCPCS: 36415; 36600; 51702; 71045; 80048; 80053; 81001; 82805; 83735; 83880; 84100; 84484; 85014; 85018; 85025; 85610; 85730; 87040; 93005; 93306; 94002; 94003; 96374; 96375; 99285; A9270; C9803; J1940; J2270; J2405; U0003; U0005

== ENCOUNTER 2021-05-02 10:53 | Observation (INO) | payer MEDICARE, SELFPAY ==
[2021-05-02] VITALS (54 sets, daily range): BP systolic 89–111; BP diastolic 43–59; PULSE 88–96; RESP 12–21; TEMP 36.3–36.5; O2SAT 98–100; BMI 29.7; BMI 29.9
--- NOTE | ~2021-05-02 | XR_ITS ---
XR chest 2V DATE: 05/02/2021 11:31 INDICATION: Dizziness, hypotension. TECHNIQUE: AP and lateral views COMPARISON: 04/10/2021 portable AP chest FINDINGS: Left-sided triple lead pacemaker device with leads overlying right atrium, right ventricle and coronary sinus. Heart size appears within normal limits. Is aortic calcification and mild tortuos ity. There is mild infiltrate or atelectasis at the left lung base, left lower lobe. The lungs otherwise a ppear clear. There is minimal blunting of left costophrenic angle which may represent a small left pl eural effusion. There is mild elevation of left leaf of the diaphragm. Diffuse idiopathic skeletal hyperostosis of the thoracic spine. IMPRESSION: Mild infiltrate or atelectasis at left lung base and minimal left pleural effusion; drama tic improvement of extensive bilateral pulmonary infiltrates since 04/10/2021 Reviewed, dictated and finalized at location A. IMPRESSION: Mild infiltrate or atelectasis at left lung base and minimal left p leural effusion; dramatic improvement of extensive bilateral pulmonary infiltra uday since 04/10/2021
--- NOTE | 2021-05-02 11:04 | ECG_ITS ---
Measurements Intervals [place] Rate: 89 P: -43 MS: 244 QRS: -40 QRSD: 73 T: 4 QT: 331 QTc: 404 Interpretive Statements ELECTRONIC ATRIAL PACEMAKER ELECTRONIC VENTRICULAR PACEMAKER BASELINE ARTIFACT- I, III, AVL NO FURTHER INTERPRETATION IS POSSIBLE ATYPICAL ECG Electronically Signed On 05-02-2021 16:33:39 CDT by Sanya Stewart D.O.
[2021-05-02 11:35] LABS: Lactic Acid Reflex 1.6 mmol/L (0.7-2.1)
[2021-05-02 11:40] LABS: INR 1.2; Prothrombin Time 14.6 Seconds (11.1-14.7)
[2021-05-02 11:41] LABS: Partial Thromboplastin Time 34.8 SECONDS (22.3-36.8)
[2021-05-02] MEDS: SODIUM CHLORIDE 0.9% IV 500 ML 999 ML IV CONT (11:45)
[2021-05-02 12:00] LABS: Add Urine Microscopic? NO; Appearance Urine Clear (Clear); Bilirubin Urine Negative (Negative); Blood Urine Negative (Negative); Color Urine Straw (Yellow); Glucose Urine UA Negative (Negative); Ketones Urine Negative (Negative); Leukocyte Esterase Ur Negative LEU/UL (Negative); Nitrate Urine Negative (Negative); Protein Urine Negative (Negative); Specific Grav Ur 1.011 (1.001-1.035); Urobilinogen Urine Negative mg/dL (<2.0)
--- NOTE | 2021-05-02 12:30 | PC.NURSE ---
Notified of Patient's BG being low. Pt. is currently AOx4 at this time. Pt. given a lunch tray.
[2021-05-02 12:49] LABS: Alanine Aminotransferase 20 U/L (4-50); Albumin Level 3.8 g/dL (3.5-5.1); Alkaline Phosphatase 51 U/L (38-126); Anion Gap 7 mmol/L (8-16); Aspartate Amino Transferase 31 U/L (17-59); Bilirubin,Total 0.4 mg/dL (0.2-1.3); Blood Urea Nitrogen 34 mg/dL (9-20); Calcium 8.6 mg/dL (8.4-10.2); Carbon Dioxide 31 mmol/L (22-30); Chloride 98 mmol/L (98-107); Estimated CRCL calculation 44 ml/min; Estimated Glomerular Filt Rate 53; Glucose 53 mg/dL (65-110); Potassium 4.6 mmol/L (3.4-5.0); Sodium 136 mmol/L (137-145)
[2021-05-02 13:14] LABS: Basophils Percent Auto 0.2 % (0.2-1.2); Eosinophils Percent Auto 0.4 % (0-4.4); Hematocrit 28.5 % (42.0-52.0); Hemoglobin 8.9 g/dL (14.0-18.0); Immature Granulocyte Absolute 0.03 K/mm3 (0.00-0.031); Immature Granulocyte Percent A 0.7 % (0-0.5); Lymphocytes Absolute Auto 1.21 K/mm3 (0.9-3.2); Lymphocytes Percent Auto 26.6 % (18.3-44.2); Mean Corpuscular HGB Conc 31.2 g/dl (32-36); Mean Corpuscular Hemoglobin 36.2 pg (26-34); Mean Corpuscular Volume 115.9 fl (80-100); Mean Platelet Volume 11.6 fl (7.4-10.4); Monocytes Absolute Auto 0.6 K/mm3 (0.1-0.6); Monocytes Percent Auto 12.7 % (2.6-8.5); Neutrophils Absolute Auto 2.7 K/mm3 (1.3-6.7); Neutrophils Percent Auto 59.4 % (45.5-73.1); Platelet Count Result 130 k/mm3 (150-375); Red Blood Count 2.46 M/mm3 (4.6-6.20); Red Cell Distribution Width 17.2 % (11.5-14.5); White Blood Count 4.6 K/mm3 (4.5-10.0)
--- NOTE | 2021-05-02 13:47 | ED.GENADULT ---
HPI - General Adult General Chief complaint: Recheck/Abnormal Lab/Rx Stated complaint: low blood pressure Time Seen by Provider: 05/02/21 11:04 Source: patient and family Mode of arrival: wheelchair Limitations: no limitations History of Present Illness HPI narrative: 80-year-old with a history of myelodysplastic syndrome, CHF, COPD, atrial fibrillation was sent in from cancer center with complaints of low blood pressure. Patient states for the past 4 to 5 days he has been noticing his blood pressure has been low. His mentions that he was started on a new diuretic which is making him to urinate a lot. He denies any chest pain, nausea or vomiting or fever or chills. Onset (ago): day(s) (4) Exacerbating factors: none Associated symptoms: denies other symptoms Related Data Home Medications Medication Instructions Recorded Confirmed finasteride 5 mg tablet 5 mg PO DAILY 09/10/19 05/02/21 fenofibric acid (choline) 135 mg 135 mg PO DAILY 09/11/19 05/02/21 capsule,delayed release omega3-dha 200 mg-epa 300 mg-othr 2 cap PO HS 09/11/19 05/02/21 om3 100 mg-fish oil 1,000 mg capsule Eliquis 5 mg PO BID 12/18/19 05/02/21 clopidogrel [Plavix] 75 mg PO DAILY #0 12/19/19 05/02/21 cyanocobalamin (vitamin B-12) 1,500 mcg PO BID 12/19/19 05/02/21 [Vitamin B-12] coenzyme Q10 [CoQ-10] 200 mg PO DAILY 12/21/19 05/02/21 rosuvastatin 5 mg tablet 5 mg PO DAILY 05/07/20 05/02/21 mexiletine 150 mg BYMOUTH BID 09/13/20 05/02/21 amiodarone 200 mg tablet 200 mg PO BID tablet 10/04/20 05/02/21 carvedilol 3.125 mg tablet 3.125 mg PO Q12H 10/04/20 05/02/21 sacubitril 24 mg-valsartan 26 mg 0.5 tablet PO BID tablet 10/04/20 05/02/21 tablet Trelegy Ellipta 1 inh INHALATION BID 10/25/20 05/02/21 cholecalciferol (vitamin D3) 2,000 mcg PO DAILY 11/22/20 05/02/21 ferrous sulfate [Iron (ferrous 325 mg PO BID 01/24/21 05/02/21 sulfate)] pregabalin 100 mg PO TID 03/08/21 05/02/21 Adult Multivitamin with Iron 1 tablet BYMOUTH DAILY 04/10/21 05/02/21 Daliresp 500 mcg PO DAILY 04/10/21 05/02/21 amitriptyline 10 mg PO DAILY 04/10/21 05/02/21 metformin 500 mg PO QID 04/10/21 05/02/21 bumetanide 2 mg tablet 2 mg PO BID 04/20/21 05/02/21 potassium chloride 20 mEq 20 meq PO DAILY 04/20/21 05/02/21 tablet,extended release(part/cryst) Allergies Allergy/AdvReac Type Severity Reaction Status Date / Time No Known Allergies Allergy Verified 05/02/21 12:43 Review of Systems Review of Systems: All systems reviewed & are unremarkable except as noted in HPI and below Constitutional: Constitutional: Reports no additional constitutional complaints Eyes: Eyes: Reports no additional eye complaints ENT: Reports system reviewed and no additional complaints, except as documented Cardiovascular: Cardiovascular: Reports no additional cardiovascular complaints Respiratory: Respiratory: Reports no additional respiratory complaints Gastrointestinal: Gastrointestinal: Reports no additional gastrointestinal complaints Musculoskeletal: Musculoskeletal: Reports no additional musculoskeletal complaints Integumentary/Breasts: Skin/Breast: Reports system reviewed and no additional complaints, except as docu Neurologic: Reports system reviewed and no additional complaints, except as documented Psychiatric: Psychiatric: Reports no additional psychiatric complaints Endocrine: Endocrine: Reports no additional endocrine complaints [facility] Past Medical History Medical History Abscess Acute and chronic respiratory failure ([id number]) Acute kidney injury Acute respiratory failure with hypercapnia Acute respiratory failure with hypoxia Anemia Atrial fibrillation Atrial fibrillation BPH (benign prostatic hyperplasia) BPH (benign prostatic hyperplasia) CAD (coronary artery disease) CHF (congestive heart failure) Echocardiogram August 2020: EF of 45%, diastolic dysfunction with elevated left heart press
--- NOTE | 2021-05-02 15:15 | PM.IMHP ---
H&P: HPI History of Present Illness Date/Time: 05/02/21 15:15 Chief Complaint: Low blood pressure. Narrative: This is a very pleasant 80-year-old male with coronary artery disease, ischemic cardiomyopathy with improved ejection fraction, atrial fibrillation, type 2 diabetes mellitus, and myelodysplastic syndrome who presented to the emergency department earlier today from the cancer center for evaluation of low blood pressure. He had an appointment at Dr. Fermin's office today as he apparently gets injections q.2 weeks of what sounds like Procrit. He was feeling in his usual state of health early this morning and when he arrived to Dr. Fermin office he was feeling a little bit weak and ?fuzzy? at which time he was found to have a blood pressure of 75/38. He received a L of normal saline on arrival to the emergency department with improvement in his blood pressures and he has been feeling just fine since that time. Random glucose on arrival to the emergency department was 53 which surprises the patient as he tells me he was really not feeling hypoglycemic. Per patient report, his blood pressures typically run in the 90s over 40s but it is unusual for him to drop down into the 70s. Because of his chronically lower blood pressures he has not been able to take the recommended doses of Entresto and in fact he was recently started back on that drug though at a lower dose. Patient also reports having a couple of occasions where he went into flash pulmonary edema and his furosemide was recently discontinued and he was started on bumetanide with excellent urine output. In fact he has minimal swelling in his legs since starting that. He currently has no complaints and specifically denies fever, chills, sweats, headache, lightheadedness, dizziness, chest pain, pleuritic pain, palpitations, shortness of breath, nausea, and vomiting. No recent cold or flu symptoms. No sick contacts. Due to his blood pressures being lower than what they typically run, he is hesitant to continue with the Entresto. Review of Systems Review of Systems: Twelve systems were reviewed with pertinent positives and negatives as per HPI. No sinus congestion, rhinorrhea, otalgia, or odynophagia. He denies headache. No vertigo. No focal weakness or paresthesias. No nausea, vomiting, or diarrhea. No dysuria. Except as documented, all other systems were reviewed and are negative. [facility] Past Medical History Medical History (Updated 05/02/21 @ 21:43 by Nerissa Mccoy PA-C) Atrial fibrillation Benign prostatic hyperplasia Chronic anemia Chronic anticoagulation Chronic hypoxemic respiratory failure Chronic respiratory failure with hypoxia Oxygen at 3 L per nasal cannula. Congestive heart failure Echocardiogram August 2020: EF of 45%, diastolic dysfunction with elevated left heart pressures, mild left atrial enlargement. Coronary artery disease Coronary artery disease Hyperlipidemia Hypertension Ischemic cardiomyopathy EF of 20-25% on cardiac catheterization June 2020. EF improved to 50 to 55% on echocardiogram Megaloblastic anemia Obstructive sleep apnea Patient uses a trilogy while sleeping. Type 2 diabetes mellitus Vitamin D deficiency Surgical History Surgical History (Updated 05/02/21 @ 21:39 by Nerissa Mccoy PA-C) History of angioplasty History of aortic valve replacement History of cardiac catheterization Right coronary intervention in the remote past, LAD intervention about 20 years ago. Repeat catheterization 2017 at [facility] with mid RCA intervention, catheterization June 2020 demonstrated EF of 20-25% with no new coronary artery occlusions History of coronary artery stent placement History of lumbar laminectomy Hx of atrioventricular node ablation (~2018) [facility]. Presence of biventricular AICD (~12/2019) Presence of combination internal cardiac defibrillator (ICD) and pacemaker Status post ablation of ventricular arrhythmia (~05/2020) [facility]
[2021-05-02 15:37] LABS: Glucose Point of Care 194 mg/dl (65-105)
--- NOTE | 2021-05-02 17:21 | ADMGEN ---
This patient, Freddy Mireles Jr., was admitted to [facility] Surg Room 321-02. Patient/family oriented to hospital policies and general routines including ID bracelet, bed and alarms, visiting hours, pain management, procedures, bathroom and other care routines, personal items, smoking policy, room service/diet, and visiting hours. Information on how to activate the Rapid Response Team has been discussed. Patient/Family are encouraged to report perceived risks to care and to ask questions if they do not understand what they are told or what they should do.
[2021-05-02 23:00] LABS: Hemoglobin A1C 4.8 % (<5.7)
[2021-05-02 23:01] LABS: Glucose Point of Care 104 mg/dl (65-105)
[2021-05-02] MEDS: OMEGA 3 POLYUNSAT FATTY ACIDS 1 GM CAP 2 GM PO (23:41)
[2021-05-02] MEDS: APIXABAN 5 MG TABLET PO (23:41)
[2021-05-03] VITALS (10 sets, daily range): BP systolic 95–109; BP diastolic 41–53; PULSE 88–92; RESP 16–25; TEMP 36.3–36.4; O2SAT 98–100
[2021-05-03 06:46] LABS: Basophils Percent Auto 0.4 % (0.2-1.2); Eosinophils Percent Auto 1.3 % (0-4.4); Hematocrit 24.8 % (42.0-52.0); Hemoglobin 7.8 g/dL (14.0-18.0); Immature Granulocyte Absolute 0.01 K/mm3 (0.00-0.031); Immature Granulocyte Percent A 0.4 % (0-0.5); Immature Platelet Fraction Pct 8.4 % (0.9-11.2); Lymphocytes Absolute Auto 0.91 K/mm3 (0.9-3.2); Lymphocytes Percent Auto 37.9 % (18.3-44.2); Mean Corpuscular HGB Conc 31.5 g/dl (32-36); Mean Corpuscular Hemoglobin 36.1 pg (26-34); Mean Corpuscular Volume 114.8 fl (80-100); Mean Platelet Volume 11.2 fl (7.4-10.4); Monocytes Absolute Auto 0.4 K/mm3 (0.1-0.6); Monocytes Percent Auto 17.1 % (2.6-8.5); Neutrophils Percent Auto 42.9 % (45.5-73.1); Platelet Count Result 121 k/mm3 (150-375); Red Blood Count 2.16 M/mm3 (4.6-6.20); Red Cell Distribution Width 17.2 % (11.5-14.5); White Blood Count 2.4 K/mm3 (4.5-10.0)
--- NOTE | 2021-05-03 07:47 | PM.IMPN ---
Progress Note: A&P Additional Plan START OF DOCTOR KAILASH?S PROGRESS NOTE Subjective: The patient sources no complaints at this time. He denies fever, rigors, nausea, vomiting, cough, wheeze, abdominal pain, chest pain, dyspnea, generalized weakness. He indicates that he feels he is back to his normal. He inquires about discharge. I have explained to the patient his current medical condition plan of care and I have answered all his questions Objective: General: -Alert -No acute distress -No dyspnea -No tachypnea Heart: -Regular rate -Regular rhythm -No murmurs -No gallops -No rubs Lungs: -No wheeze -scant left-sided rhonchi -No rales Abdomen: -Normal bowel sounds in all four quadrants -No rebound -No guarding -No tenderness Extremities: -2/4 pulse in all four extremities -No clubbing -No cyanosis -No edema Additional Details / Additional Findings / Exceptions / Miscellaneous: Pertinent Laboratory Results / Pertinent Radiology Results / Pertinent Diagnostic Results / Pertinent Vital Signs: Vital signs stable. White blood cell count 2.4, hemoglobin 7.8, MCV 114.8, platelet count a 100.1 1000 Assessment / Plan: Hypotension, resolved Hypoglycemia, resolved COPD, O2 dependent 3 L. Trelegy Ellipta 1 inhalation daily plus Daliresp 500 mg p.o. daily Obesity. Patient counseled regarding lifestyle modification Coronary artery disease, status post stent. Plavix and 5 mg p.o. daily plus Crestor 5 mg p.o. q.h.s. plus Coreg 3.25 mg p.o. b.i.d. CHF, ejection fraction 50-55% per echocardiogram from April 11, 2021, status post AICD placement. Coreg 3.25 mg p.o. b.i.d. plus Bumex 2 mg p.o. b.i.d. plus K-Dur 20 mEq p.o. daily Atrial fibrillation. Amiodarone 200 mg p.o. b.i.d. plus Eliquis 5 mg p.o. q.12 hours plus Coreg 3.25 mg p.o. b.i.d. plus mexiletine 150 mg p.o. b.i.d. Diabetes. Will check fingerstick glucose q.a.c. and HS and provide insulin sliding scale Myelodysplastic syndrome with resultant pancytopenia with features of macrocytic anemia. Ferrous sulfate 324 mg p.o. b.i.d.. Monitor CBC intermittently BPH. Finasteride 5 mg p.o. daily plus Flomax 0.4 mg p.o. daily Obstructive sleep apnea. CPAP/BiPAP: Okay to use home device and/or pressure when sleeping if the patient uses CPAP/BiPAP at home History of vitamin-D deficiency Vitamin-D 2000 IU p.o. daily History of aortic valve replacement Hyperlipidemia. Fenofibric acid 135 mg p.o. daily plus omega-3 fatty acids: 2 g p.o. q.h.s. post Crestor 5 mg p.o. q.h.s. Neuropathy. Amitriptyline 10 mg p.o. daily plus Lyrica 100 mg p.o. t.i.d. DVT prophylaxis. Eliquis 5 mg p.o. q.12 hours Disposition: Pending evaluation by physical therapy occupational therapy, patient will likely be a cane for discharge on this day of May 03, 2021 END OF DOCTOR KAILASH?S PROGRESS NOTE Subjective Date/time seen: 05/03/21 07:47 Objective Data Vital Signs Vital Signs: Vital Signs - 24 hr 05/02/21 10:56 05/02/21 11:21 05/02/21 11:22 Temperature 97.4 F L Pulse Rate 89 91 90 Respiratory Rate 16 17 21 H Blood Pressure 93/50 L 94/47 L Pulse Oximetry 100 100 100 05/02/21 11:33 05/02/21 11:34 05/02/21 11:45 Temperature Pulse Rate 90 90 90 Respiratory Rate 18 13 16 Blood Pressure 95/58 L Pulse Oximetry 100 100 100 05/02/21 11:46 05/02/21 12:00 05/02/21 12:01 Temperature Pulse Rate 90 90 90 Respiratory Rate 14 13 15 Blood Pressure 90/53 L 97/49 L Pulse Oximetry 100 100 100 05/02/21 12:15 05/02/21 12:16 05/02/21 12:30 Temperature Pulse Rate 90 90 91 Respiratory Rate 15 16 12 Blood Pressure 94/53 L Pulse Oximetry 100 100 100 05/02/21 12:31 05/02/21 12:45 05/02/21 12:46 Temperature Pulse Rate 89 90 89 Respiratory Rate 13 17 18 Blood Pressure 96/48 L 91/48 L Pulse Oximetry 100 100 100 05/02/21 12:54 05/02/21 13:00 05/02/21 13:01 Temperature Pulse Rate 90 90
[2021-05-03 07:52] LABS: Alanine Aminotransferase 18 U/L (4-50); Albumin Level 3.2 g/dL (3.5-5.1); Alkaline Phosphatase 43 U/L (38-126); Anion Gap 4 mmol/L (8-16); Aspartate Amino Transferase 28 U/L (17-59); Bilirubin,Total 0.3 mg/dL (0.2-1.3); Blood Urea Nitrogen 23 mg/dL (9-20); Calcium 8.5 mg/dL (8.4-10.2); Carbon Dioxide 32 mmol/L (22-30); Chloride 101 mmol/L (98-107); Estimated CRCL calculation 48 ml/min; Estimated Glomerular Filt Rate 58; Glucose 102 mg/dL (65-110); Magnesium 2.2 mg/dL (1.6-2.3); Potassium 3.9 mmol/L (3.4-5.0); Sodium 137 mmol/L (137-145)
[2021-05-03 08:00] LABS: Glucose Point of Care 96 mg/dl (65-105)
[2021-05-03] MEDS: MEXILETINE HCL 150 MG CAPSULE PO (08:08)
[2021-05-03] MEDS: BUMETANIDE 1 MG TABLET 2 MG PO (08:08)
[2021-05-03] MEDS: ROSUVASTATIN 5 MG TABLET PO (08:08)
[2021-05-03] MEDS: AMIODARONE HCL 200 MG TABLET PO (08:08)
[2021-05-03] MEDS: FERROUS SULFATE 324 MG TABLET PO (08:09)
[2021-05-03] MEDS: CLOPIDOGREL BISULFATE 75 MG TABLET PO (08:09)
[2021-05-03] MEDS: FINASTERIDE 5 MG TABLET PO (08:09)
[2021-05-03] MEDS: TAMSULOSIN HCL 0.4 MG CAPSULE PO (08:09)
[2021-05-03] MEDS: ROFLUMILAST 500 MCG TABLET PO (08:09)
[2021-05-03] MEDS: CHOLECALCIFEROL 1,000 UNITS TABLET 2000 UNITS PO (08:09)
[2021-05-03] MEDS: carvediloL 3.125 MG TABLET PO (08:09)
[2021-05-03] MEDS: POTASSIUM CHLORIDE 20 MEQ TABLET.ER PO (08:09)
[2021-05-03] MEDS: CYANOCOBALAMIN 500 MCG TABLET 1500 MCG PO (08:09)
[2021-05-03] MEDS: APIXABAN 5 MG TABLET PO (08:09)
[2021-05-03] MEDS: AMITRIPTYLINE HCL 10 MG TABLET PO (08:10)
[2021-05-03] MEDS: MULTIVITAMINS /C LUTEIN (CENTRUM SILVER) TABLET *BKC 1 TAB PO (08:11)
[2021-05-03] MEDS: PREGABALIN (*CRX) 50 MG CAPSULE 100 MG PO ×2 (08:13→12:56)
--- NOTE | 2021-05-03 09:24 | PM.CNCAR ---
Assessment and Plan Assessment and plan (1) Hypotension: Qualifiers: Hypotension type: hypotension due to drug Qualified Code(s): I95.2 - Hypotension due to drugs Code(s): I95.9 - Hypotension, unspecified Status: Acute Assessment and Plan: Patient sent to the emergency department from Dr. Fermin's office for blood pressure of 75/38. He was given a 1 L fluid bolus in the emergency department with normalization of blood pressures to the patient's baseline. He ordinarily has a systolic blood pressure of 90 to 100. I think it would be reasonable to discontinue his Entresto at this time to avoid further episodes of symptomatic hypotension. (2) Ischemic cardiomyopathy: Code(s): I25.5 - Ischemic cardiomyopathy Status: Acute Assessment and Plan: History of ischemic cardiomyopathy with a recent echocardiogram demonstrating an ejection fraction of 50-55%. Several recent hospitalizations for CHF exacerbations but no evidence of decompensated HF on exam at this time. Seems to be doing well on bumex 2mg BID. This should be continued. (3) CAD (coronary artery disease): Code(s): I25.10 - Atherosclerotic heart disease of [place] coronary artery without angina pectoris Status: Chronic Assessment and Plan: Longstanding history of coronary artery disease with chronic total occlusion of the RCA, LAD stenting initially in 1999 and again in 2020. Currently not experiencing any anginal symptoms. This is stable. Continue Plavix, statin. (4) Chronic anemia: Code(s): D64.9 - Anemia, unspecified Status: Acute Assessment and Plan: This is followed by Dr. Fermin. Outpatient Procrit infusions. History of Present Illness History of Present Illness Consult date/time: 05/03/21 09:24 Requesting physician: Nerissa Mccoy PA-C Consult reason: known to you (medication clarification ) Reason For Visit: Hypotension Narrative: Mr. Mireles is a patient we are seeing at the request of JORJE Madrigal for hypotension and patient questions regarding his cardiac medications. This is a longstanding patient of Dr. Miller with a history coronary artery disease, ischemic cardiomyopathy, combined systolic and diastolic congestive heart failure, myelodysplastic syndrome, type 2 DM who presented to the emergency department after he was found to be hypotensive at an outpatient appointment at Dr. Fermin's office yesterday. Apparently at that time his blood pressure was 75/38. He was sent to the emergency department by office staff where he received a fluid bolus of 1 L. He was then admitted to the hospital for further observation. Mr. Mireles has been admitted to the hospital multiple times over the past several months for flash pulmonary edema/CHF exacerbation. He was recently seen in our office where his furosemide was shifted to Bumex which seemed to be providing him with good urine output and maintenance of his volume status. His blood pressure does usually run low with a systolic number in the 90s to 100. He was feeling ?off? and fuzzy for a few days prior to his appointment at Dr. Fermin's office yesterday. Today, he is feeling back to his baseline and does not any complaints. He is breathing well on his usual home oxygen setting. He is wondering about his Entresto-this was recently held due to hypotension and then restarted by his primary care doctor and continued in follow-up at our office as his blood pressure was running in the 120s at that time systolically. Review of Systems Review of Systems: All systems reviewed & are unremarkable except as noted in HPI and below Constitutional: Constitutional: Reports fatigue, Reports lethargy and Denies weakness Eyes: Eyes: Denies change in vision ENT: Reports Normal hearing present Cardiovascular: Cardiovascular: Denies chest pain, Denies pedal edema, Denies leg edema and Denies palpitations Respiratory: Resp
--- NOTE | 2021-05-03 11:50 | PCPTNOTE ---
On 05/03/21, the student, Jesus Gamino, provided care and completed [facility] documentation on this patient. I have reviewed the student's documentation and agree with the findings.
[2021-05-03 12:29] LABS: Glucose Point of Care 172 mg/dl (65-105)
--- NOTE | 2021-05-03 15:47 | PM.DS ---
DS: Admitting Diagnosis Discharge Date 3:50 p.m. on May 03, 2021 Admitting Diagnosis Hypoglycemia, hypotension DS: Summary Hospital Course Hospital Course: See discharge summary below Time Spent with Patient Time attestation: Total time spent providing and/or coordinating discharge services: START OF DOCTOR JIMMY DISCHARGE SUMMARY Date of Admission: May 02, 2021 Date of Discharge: 3:47 p.m. on May 03, 2021 Primary Diagnosis: Hypotension, resolved Hypoglycemia, resolved Secondary Diagnosis: COPD, O2 dependent 3 L Obese Coronary artery disease, status post stent CHF, ejection fraction 50-55% per echocardiogram from April 11, 2021, status post AICD placement Atrial fibrillation Diabetes Myelodysplastic syndrome with resultant pancytopenia with features of macrocytic anemia BPH Obstructive sleep apnea History of vitamin-D deficiency History of aortic valve replacement paragraph hyperlipidemia paragraph neuropathy Consultations: Cardiology Disposition: The patient will be advised follow-up with his primary care physician 5-7 days post discharge for post hospitalization evaluation The patient is advised follow-up with cardiology as directed for his history of coronary artery disease, status post stent as well as history of some CHF, ejection fraction 50-55%, status post AICD placement The patient is advised follow-up with Hematology/Oncology as directed for his history of myelodysplastic syndrome Discharge Medications: Metformin ER 500 mg p.o. q.i.d. Amiodarone 200 mg p.o. b.i.d. Amitriptyline 10 mg p.o. daily Eliquis 5 mg p.o. b.i.d. Bumex 2 mg p.o. b.i.d. Flomax 0.4 mg p.o. daily Crestor 5 mg p.o. q.h.s. Daliresp 500 mg p.o. daily Lyrica 100 mg p.o. t.i.d. Coreg 3.5 mg p.o. b.i.d. Vitamin-D 1000 mg p.o. daily Plavix and 5 mg p.o. daily Vitamin Co Q10 100 mg p.o. daily Vitamin B12 1500 mg p.o. b.i.d. Fenofibric acid 1 her 3 5 mg p.o. daily Ferrous sulfate 325 mg p.o. b.i.d. Finasteride 5 mg p.o. daily Trelegy Ellipta 1 inhalation b.i.d. Mexiletine 150 mg p.o. b.i.d. Multivitamin 1 tab p.o. daily Fish oil 2 tablets p.o. q.h.s. K-Dur 20 mEq p.o. daily END OF DOCTOR KAILASH?S DISCHARGE SUMMARY DS: Data Data Completed and Pending Labs on day of discharge: Labs from last 24 hours 05/03/21 05/03/21 05/03/21 12:26 07:56 06:32 WBC RBC Hgb Hct MCV MCH MCHC RDW Plt Count MPV Immature Gran % (Auto) Neut % (Auto) Lymph % (Auto) [place] % (Auto) Eos % (Auto) Baso % (Auto) Lymph # (Auto) [place] # (Auto) Eos # (Auto) Baso # (Auto) Abs Immat Gran (auto) Absolute Neuts (auto) Absolute Nucleated RBC Nucleated RBC % % Immature Plt Fraction Sodium 137 Potassium 3.9 Chloride 101 Carbon Dioxide 32 H Anion Gap 4 L BUN 23 H D Creatinine 1.20 Estim Creat Clear Calc 48 Estimated GFR 58 L Glucose 102 POC Capillary Glucose 172 H 96 Hemoglobin A1c Calcium 8.5 Magnesium 2.2 Total Bilirubin 0.3 Direct Bilirubin 0.0 AST 28 ALT 18 Alkaline Phosphatase 43 Total Protein 6.0 L Albumin 3.2 L 05/03/21 05/02/21 05/02/21 06:32 22:08 12:58 WBC 2.4 L RBC 2.16 L Hgb 7.8 L Hct 24.8 L MCV 114.8 H MCH 36.1 H MCHC 31.5 L RDW 17.2 H Plt Count 121 L MPV 11.2 H Immature Gran % (Auto) 0.4 Neut % (Auto) 42.9 L Lymph % (Auto) 37.9 [place] % (Auto) 17.1 H Eos % (Auto) 1.3 Baso % (Auto) 0.4 Lymph # (Auto) 0.91 [place] # (Auto) 0.4 Eos # (Auto) 0.0 Baso # (Auto) 0.0 Abs Immat Gran (auto) 0.01 Absolute Neuts (auto) 1.0 L Absolute Nucleated RBC 0.0 Nucleated RBC % 0.0 % Immature Plt Fraction 8.4 Sodium Potassium Chloride Carbon Dioxide Anion Gap BUN Creatinine
--- NOTE | 2021-05-03 16:11 | PC.NURSE ---
On 05/03/21, the student, Karina Casey, provided care and completed [facility] documentation on this patient. I have reviewed the student's documentation and agree with the findings.
== END 2021-05-03 15:45 | disposition home or self-care (01) ==
LOC: ANHED 13:53 → ANH3MEDSUR 05-03 08:05
PROVIDERS: Emergency Medicine; Physician Assistant; Admitting Provider Internal Medicine; Emergency Provider Family Medicine; PCP Internal Medicine; Visit Provider Internal Medicine
DX: I95.9 Hypotension, unspecified (principal); E11.649 Type 2 diabetes mellitus with hypoglycemia without coma; I25.10 Atherosclerotic heart disease of native coronary artery without angina pectoris; I11.0 Hypertensive heart disease with heart failure; I50.9 Heart failure, unspecified; D46.9 Myelodysplastic syndrome, unspecified; G47.33 Obstructive sleep apnea (adult) (pediatric); I25.5 Ischemic cardiomyopathy; I48.91 Unspecified atrial fibrillation; J96.11 Chronic respiratory failure with hypoxia; J44.9 Chronic obstructive pulmonary disease, unspecified; Z99.81 Dependence on supplemental oxygen; Z23 Encounter for immunization; Z79.01 Long term (current) use of anticoagulants; Z79.84 Long term (current) use of oral hypoglycemic drugs
CPT/HCPCS: 36415; 71046; 80048; 80053; 80076; 81003; 82948; 83036; 83605; 83735; 85025; 85055; 85610; 85730; 90471; 90653; 93005; 94660; 96360; 96372; 97161; 97165; 99285; A9270; G0008; G0378; J7040; Q5106

== ENCOUNTER 2021-06-15 09:45 | Outpatient (RCR) | payer MEDICARE, SELFPAY ==
[2021-06-15] MEDS: diphenhydrAMINE HCl CAP 25 MG CAPSULE PO (11:08)
[2021-06-15 11:09] LABS: Hematocrit 21.7 % (42.0-52.0)
[2021-06-15] MEDS: SODIUM CHLORIDE 0.9% IV 250 ML 30 ML IV CONT (11:11)
[2021-06-15 12:10] VITALS: BP 98/54; PULSE 88; RESP 16; TEMP 36.7; O2SAT 95
[2021-06-15 12:25] VITALS: BP 101/54; PULSE 89; RESP 16; TEMP 36.5; O2SAT 96
[2021-06-15] MEDS: ACETAMINOPHEN 325 MG TABLET 650 MG PO (12:35)
--- NOTE | 2021-06-15 12:35 | PC.NURSE ---
REFUSED PRE TRANSFUSION TYLENOL DOSE EARLIER BECAUSE TOOK DOSE AT HOME PRIOR TO ARRIVAL. REQUESTED DOSE NOW THAT ENOUGH TIME HAD PASSED SINCE PRIOR DOSE. HAD TO REORDER DOSE IN [facility] SINCE MED AUTO DISCONTINUED WHEN CHARTED REFUSED EARLIER. TYLENOL 650MG PO GIVEN NOW.
[2021-06-15 13:25] VITALS: BP 86/57; PULSE 89; RESP 16; TEMP 36.2; O2SAT 97
[2021-06-15 14:25] VITALS: BP 100/56; PULSE 88; RESP 16; TEMP 36.2; O2SAT 99
[2021-06-15 15:07] VITALS: BP 100/53; PULSE 89; RESP 16; TEMP 36.3; O2SAT 97
== END 2021-08-23 23:59 | disposition home or self-care (01) ==
LOC: ANHCPCTRAN 09:45
PROVIDERS: PCP Internal Medicine; Visit Provider Internal Medicine Hematology & Oncology
DX: D46.9 Myelodysplastic syndrome, unspecified (principal)
CPT/HCPCS: 36415; 36430; 85014; 85018; 86850; 86900; 86901; 86920; A9270; J7050; P9016

== ENCOUNTER 2021-06-16 23:28 | Emergency (ER) | payer MEDICARE, SELFPAY ==
--- NOTE | ~2021-06-16 | XR_ITS ---
XR chest 1V portable DATE: 06/17/2021 00:36 INDICATION: Defibrillator discharge. History of COPD, hypertension, congestive heart failure TECHNIQUE: Portable upright AP chest on 06/17/2021 at 0030 hours COMPARISON: 05/02/2021 AP and lateral chest FINDINGS: Left-sided transvenous defibrillator/pacemaker device with leads overlying right atrium, ri ght ventricle and coronary sinus. Size appears within normal range but there is pulmonary vascular congestion and redistribution. There is prominent interstitial prominence including Kev B-lines and mild pulmonary infiltrates which a re more prominent centrally and in the lower lung zones, suggesting pulmonary edema. There is mild in filtrate or atelectasis at the left lung base. Minimal blunting of the costophrenic angles suggests s mall pleural effusions. Osteopenia. Degenerative spurring of the thoracic spine. IMPRESSION: Congestive changes, new since 05/02/2021 Reviewed, dictated and finalized at location A. ANALYST
[2021-06-16 23:26] VITALS: BP 114/61; PULSE 91; RESP 19; TEMP 36.6; O2SAT 97
--- NOTE | 2021-06-16 23:39 | ED.ARRPALP ---
HPI - Arrhythmia/Palpitations General Chief Complaint: Arrhythmia/Palpitations Stated Complaint: cardiac Time Seen by Provider: 06/16/21 23:32 Source: patient History of Present Illness HPI narrative: Patient presents with concern for his cardiac defibrillator going off. Patient has a history of of coronary artery disease with multiple stents as well as history of CHF, A. fib, V. tach, and complete heart block, he reports he was sleeping woke up felt nauseous and unwell and then felt his defibrillator go off. Reports he feels well now and has no complaints. Reorts he was recently given a blood transfusion as he seen Dr. Fermin for myelodysplastic syndrome is getting chemotherapy. Denies any lightheadedness or dizziness denies any active chest pain or shortness of breath. Related Data Home Medications Medication Instructions Recorded Confirmed finasteride 5 mg tablet 5 mg PO DAILY 09/10/19 06/13/21 fenofibric acid (choline) 135 mg 135 mg PO DAILY 09/11/19 06/13/21 capsule,delayed release omega3-dha 200 mg-epa 300 mg-othr 2 cap PO HS 09/11/19 06/13/21 om3 100 mg-fish oil 1,000 mg capsule Eliquis 5 mg PO BID 12/18/19 06/13/21 clopidogrel [Plavix] 75 mg PO DAILY #0 12/19/19 06/13/21 cyanocobalamin (vitamin B-12) 1,500 mcg PO BID 12/19/19 06/13/21 [Vitamin B-12] coenzyme Q10 [CoQ-10] 200 mg PO DAILY 12/21/19 06/13/21 rosuvastatin 5 mg tablet 5 mg PO DAILY 05/07/20 06/13/21 mexiletine 150 mg BYMOUTH BID 09/13/20 06/13/21 amiodarone 200 mg tablet 200 mg PO BID tablet 10/04/20 06/13/21 carvedilol 3.125 mg tablet 3.125 mg PO Q12H 10/04/20 06/13/21 Trelegy Ellipta 1 inh INHALATION BID 10/25/20 06/13/21 cholecalciferol (vitamin D3) 2,000 mcg PO DAILY 11/22/20 06/13/21 ferrous sulfate [Iron (ferrous 325 mg PO BID 01/24/21 06/13/21 sulfate)] Daliresp 500 mcg PO DAILY 04/10/21 06/13/21 bumetanide 2 mg tablet 2 mg PO BID 04/20/21 06/13/21 potassium chloride 20 mEq 20 meq PO DAILY 04/20/21 06/13/21 tablet,extended release(part/cryst) Adults Multivitamin 1 tablet PO DAILY 05/02/21 06/13/21 lisinopril 2.5 mg PO DAILY 05/30/21 06/13/21 nitroglycerin 0.3 mg sublingual 0.3 mg SUBLINGUAL ONCE PRN tablet 06/02/21 06/13/21 tablet Allergies Allergy/AdvReac Type Severity Reaction Status Date / Time No Known Allergies Allergy Verified 06/13/21 09:55 Review of Systems Review of Systems: CONSTITUTIONAL: Denies fever, chills, or sweats. EYES: Denies visual changes, redness, or discharge. ENT: Denies rhinorrhea, congestion, sore throat, or otalgia. CARDIOVASCULAR: Denies chest pain, palpitations, or edema. RESPIRATORY: Denies cough or dyspnea. GASTROINTESTINAL: Denies abdominal pain, nausea, vomiting, or diarrhea. GENITOURINARY: Denies dysuria or hematuria. SKIN: Denies rash or itching. MUSCULOSKELETAL: Denies back pain, joint pain, or myalgia. NEUROLOGIC: Denies headache, numbness, dizziness, or weakness. PSYCHIATRIC: Denies anxiety or depression. All systems reviewed & are unremarkable except as noted in HPI and below PMFSH Past Medical History Medical History Atrial fibrillation Benign prostatic hyperplasia Chronic anemia Chronic anticoagulation Chronic hypoxemic respiratory failure Chronic respiratory failure with hypoxia Oxygen at 3 L per nasal cannula. Congestive heart failure Echocardiogram August 2020: EF of 45%, diastolic dysfunction with elevated left heart pressures, mild left atrial enlargement. Coronary artery disease Coronary artery disease Hyperlipidemia Hypertension Ischemic cardiomyopathy EF of 20-25% on cardiac catheterization June 2020. EF improved to 50 to 55% on echocardiogram Megaloblastic anemia Obstructive sleep apnea Patient uses a trilogy while sleeping. Type 2 diabetes mellitus Vitamin D deficiency Surgical History Surgical History History of angioplasty History of aortic kieran
--- NOTE | 2021-06-16 23:56 | ECG_ITS ---
Measurements Intervals [place] Rate: 92 P: 21 PA: 168 QRS: 191 QRSD: 142 T: 2 QT: 409 QTc: 506 Interpretive Statements ELECTRONIC ATRIAL PACEMAKER ELECTRONIC VENTRICULAR PACEMAKER BASELINE ARTIFACT- V4 NO FURTHER INTERPRETATION IS POSSIBLE ATYPICAL ECG Electronically Signed On 06-17-2021 7:32:17 SURVEY METHODOLOGIST by Sanya Stewart D.O.
[2021-06-17 00:15] LABS: INR 1.3; Prothrombin Time 15.8 Seconds (11.1-14.7)
[2021-06-17 00:16] LABS: Partial Thromboplastin Time 34.7 SECONDS (22.3-36.8)
[2021-06-17 00:18] LABS: Alanine Aminotransferase 22 U/L (4-50); Albumin Level 3.6 g/dL (3.5-5.1); Alkaline Phosphatase 63 U/L (38-126); Anion Gap 6 mmol/L (8-16); Aspartate Amino Transferase 30 U/L (17-59); Bilirubin,Total 0.6 mg/dL (0.2-1.3); Blood Urea Nitrogen 37 mg/dL (9-20); Calcium 9.2 mg/dL (8.4-10.2); Carbon Dioxide 36 mmol/L (22-30); Chloride 93 mmol/L (98-107); Estimated CRCL calculation 41 ml/min; Estimated Glomerular Filt Rate 49; Glucose 133 mg/dL (65-110); Sodium 135 mmol/L (137-145)
[2021-06-17 00:20] LABS: Basophils Percent Auto 0.3 % (0.2-1.2); Eosinophils Absolute Auto 0.1 K/mm3 (0-0.3); Eosinophils Percent Auto 1.8 % (0-4.4); Hematocrit 25.5 % (42.0-52.0); Hemoglobin 8.3 g/dL (14.0-18.0); Immature Granulocyte Absolute 0.14 K/mm3 (0.00-0.031); Immature Granulocyte Percent A 4.3 % (0-0.5); Immature Platelet Fraction Pct 9.9 % (0.9-11.2); Lymphocytes Absolute Auto 1.38 K/mm3 (0.9-3.2); Lymphocytes Percent Auto 42.5 % (18.3-44.2); Mean Corpuscular HGB Conc 32.5 g/dl (32-36); Mean Corpuscular Hemoglobin 34.4 pg (26-34); Mean Corpuscular Volume 105.8 fl (80-100); Mean Platelet Volume 10.9 fl (7.4-10.4); Monocytes Absolute Auto 0.2 K/mm3 (0.1-0.6); Monocytes Percent Auto 7.4 % (2.6-8.5); Neutrophils Absolute Auto 1.4 K/mm3 (1.3-6.7); Neutrophils Percent Auto 43.7 % (45.5-73.1); Nucleated Red Blood Cells Absolute Auto 0.1 K/mm3 (0.0-0.012); Nucleated Red Blood Cells Perc 1.5 % (0.0-0.2); Platelet Count Result 112 k/mm3 (150-375); Red Blood Count 2.41 M/mm3 (4.6-6.20); Red Cell Distribution Width 20.7 % (11.5-14.5); White Blood Count 3.3 K/mm3 (4.5-10.0)
[2021-06-17 00:38] VITALS: BP 101/54; PULSE 90; RESP 16; O2SAT 97
[2021-06-17] MEDS: FUROSEMIDE INJ 40 MG/4 ML VIAL IV PUSH (00:50)
[2021-06-17 00:53] LABS: Magnesium 2.1 mg/dL (1.6-2.3)
[2021-06-17 01:20] VITALS: BP 104/59; PULSE 89; RESP 20; O2SAT 98
== END 2021-06-17 01:45 | disposition home or self-care (01) ==
PROVIDERS: Emergency Provider Emergency Medicine; PCP Internal Medicine
DX: I47.2 Ventricular tachycardia (principal); D46.9 Myelodysplastic syndrome, unspecified; D53.1 Other megaloblastic anemias, not elsewhere classified; I48.91 Unspecified atrial fibrillation; J96.11 Chronic respiratory failure with hypoxia; I50.9 Heart failure, unspecified; I25.10 Atherosclerotic heart disease of native coronary artery without angina pectoris; I11.0 Hypertensive heart disease with heart failure; I25.5 Ischemic cardiomyopathy; E11.9 Type 2 diabetes mellitus without complications; E78.5 Hyperlipidemia, unspecified; E55.9 Vitamin D deficiency, unspecified; N40.0 Benign prostatic hyperplasia without lower urinary tract symptoms; G47.33 Obstructive sleep apnea (adult) (pediatric); Z99.81 Dependence on supplemental oxygen; Z95.2 Presence of prosthetic heart valve; Z95.810 Presence of automatic (implantable) cardiac defibrillator; Z95.5 Presence of coronary angioplasty implant and graft; Z79.01 Long term (current) use of anticoagulants; Z79.899 Other long term (current) drug therapy; Z79.84 Long term (current) use of oral hypoglycemic drugs; Z87.891 Personal history of nicotine dependence
CPT/HCPCS: 36415; 71045; 80053; 83735; 85025; 85055; 85610; 85730; 93005; 96374; 99284; J1940

== ENCOUNTER 2021-07-11 11:43 | Inpatient (IN) | payer MEDICARE, SELFPAY ==
[2021-07-11] VITALS (49 sets, daily range): BP systolic 79–105; BP diastolic 39–75; PULSE 87–98; RESP 13–34; TEMP 36.3–36.7; O2SAT 87–100; BMI 28.8; BMI 27.7
--- NOTE | ~2021-07-11 | XR_ITS ---
EXAMINATION: XR abdomen obstructive series EXAM DATE: 07/12/2021 07:43 INDICATION: Shortness of breath. TECHNIQUE: Frontal upright projection of the upper abdomen, frontal projection of the lower abdomen f or interpretation. Comparison is made to prior examination from 01/03/2020. FINDINGS: Small to moderate left, small pleural effusions. Basilar edema and/or pneumonia and cardio megaly. Moderate amount of colonic stool and gas. No evidence of free intraperitoneal gas or dilated small bowel. There is no organomegaly. IMPRESSION: Moderate amount of colonic stool and gas. Reviewed, dictated and finalized at location D. D TECH
--- NOTE | ~2021-07-11 | XR_ITS ---
EXAMINATION: XR chest 1V portable EXAM DATE: 07/12/2021 07:43 INDICATION: Shortness of breath. TECHNIQUE: Portable AP frontal chest x-ray was obtained. Comparison is made to prior examination from 07/11/2021. FINDINGS: There is diffuse abnormal reticulation, worsening edema and/or pneumonia. Small to moderate left pleural effusion, small right pleural effusion. Cardiomegaly. Pacemaker/AICD device. There is n o pneumothorax suspected. IMPRESSION: 1. Progression of diffuse edema and/or pneumonia. 2. Small to moderate left, small right pleural effusions. Reviewed, dictated and finalized at location D. LRY CUTTER
--- NOTE | ~2021-07-11 | XR_ITS ---
EXAMINATION: XR chest 2V EXAM DATE: 07/11/2021 12:02 INDICATION: SOB, hx copd . TECHNIQUE: Portable AP frontal chest x-ray was obtained. Comparison is made to prior examination from 06/17/2021. FINDINGS: Progression of airspace disease compared to previous examination, with abnormal reticulatio n and small to moderate left pleural effusion. Small right pleural effusion. Differential diagnosis i ncludes pneumonia and edema. Mild cardiomegaly. Triple lead pacemaker/AICD device. No pneumothorax. IMPRESSION: 1. Moderate amount of abnormal reticulation and cardiomegaly. Consider edema and/or pneumonia. 2. Small to moderate left, small right pleural effusions. Reviewed, dictated and finalized at location B. SLIP COVER INSTALLER IMPRESSION: 1. Moderate amount of abnormal reticulation and cardiomegaly. Consider edema a nd/or pneumonia. 2. Small to moderate left, small right pleural effusions.
--- NOTE | ~2021-07-11 | XR_ITS ---
EXAMINATION: XR chest 1V portable DATE: 07/17/2021 11:52 INDICATION: Congestive heart failure. TECHNIQUE: A single frontal view of the chest was obtained on 2 radiographs. COMPARISON: Chest single view 07/13/2021, chest CT 07/12/2021 FINDINGS: There are small right and moderate-sized left pleural effusions. There are airspace opaciti es in the mid and lower lung zones with a basilar predominance. No pneumothorax. Cardiomegaly is note d. There is a left chest pacer/defibrillator with leads in right atrium, right ventricle, and coronar y sinus. IMPRESSION: 1. Stable airspace opacities in the mid and lower lung zones, consistent with atelectasis versus pneu monia. 2. Stable small right and moderate-sized left pleural effusions. 3. Cardiomegaly. Reviewed, dictated and finalized at location A. TRAINER TEACHER IMPRESSION: 1. Stable airspace opacities in the mid and lower lung zones, consistent with a telectasis versus pneumonia. 2. Stable small right and moderate-sized left pleural effusions. 3. Cardiomegaly.
--- NOTE | ~2021-07-11 | CT_ITS ---
EXAMINATION: CTA chest PE protocol DATE: 07/12/2021 11:17 INDICATION: Shortness of breath. Elevated d-dimer. TECHNIQUE: Computed tomography (CT) pulmonary angiogram of the chest was performed with 100 mL Omnipa que-350 intravenous contrast. Additional 3D reconstructions utilizing coronal maximum intensity proje ction (MIP) were performed. Automated exposure control and iterative reconstruction technique were em ployed. The dose-length product was 711.00 mGy-cm. COMPARISON: None FINDINGS: Excellent contrast opacification of the pulmonary arteries. There is moderate streak artifact from de nse contrast in the superior vena cava and right atrium. Mild scattered respiratory motion artifact. Together this decreases sensitivity in some of the smaller subsegmental pulmonary arteries. No pulmon ana rosa embolism. Mild emphysema. Small to moderate-sized bilateral posterior layering pleural effusions with near complete collapse of the left lower lobe and partial collapse of the right lower lobe. Grou ndglass opacities and smooth septal line thickening scattered throughout both lungs. More dense airsp kieran opacities in the right upper lobe coalescent consolidation posteriorly. Cardiomegaly with left at rial and ventricular enlargement. Atherosclerotic coronary artery calcifications and coronary artery stenting. Three lead pacemaker/AICD seen with leads terminating at the right atrial appendage, apex o f the right ventricle and in a coronary vein along the lateral wall of the left ventricle having ede ersed the coronary sinus. No pericardial effusion. Thoracic aorta is normal in caliber. Mild likely r eactive mediastinal lymphadenopathy. Visualized portion of the upper abdomen are unremarkable. Mild t horacic dextrocurvature with mild to moderate spondylosis. There are bridging osteophytes at multiple levels consistent with diffuse idiopathic skeletal hyperostosis (DISH). IMPRESSION: 1. No pulmonary embolism. 2. Diffuse bilateral lung disease to at least in part to pulmonary edema and could not exclude superi mposed pneumonia. 3. Small to moderate bilateral pleural effusions with near complete collapse of the left lower lobe a nd partial collapse of the right lower lobe. 4. Cardiomegaly. 5. Likely reactive mild mediastinal lymphadenopathy. Reviewed, dictated and finalized at location A. PORTAL DEVELOPER IMPRESSION: 1. No pulmonary embolism. 2. Diffuse bilateral lung disease to at least in part to pulmonary edema and co uld not exclude superimposed pneumonia. 3. Small to moderate bilateral pleural effusions with near complete collapse of the left lower lobe and partial collapse of the right lower lobe. 4. Cardiomegaly. 5. Likely reactive mild mediastinal lymphadenopathy.
--- NOTE | ~2021-07-11 | XR_ITS ---
EXAMINATION: XR chest 1V portable INDICATION: Shortness of breath TECHNIQUE: Portable AP chest at 0600 hours COMPARISON: 07/12/2021 FINDINGS: Moderate-sized left and small right pleural effusions are unchanged. There is no pneumothor ax. Diffuse interstitial opacities persist but have improved. More focal airspace opacity of the left lung base is unchanged. Cardiomegaly is noted. A triple lead cardiac pacemaker of the left chest wal l ends with leads in expected locations. IMPRESSION: 1. Moderate-sized left and small right pleural effusions without significant change. 2. Cardiomegaly with improving pulmonary edema. 3. Left basilar airspace opacity demonstrated to be in part due to left lower lobe collapse on yester day's CT examination. Reviewed, dictated and finalized at location A. DRILL OPERATOR IMPRESSION: 1. Moderate-sized left and small right pleural effusions without significant ch indigo. 2. Cardiomegaly with improving pulmonary edema. 3. Left basilar airspace opacity demonstrated to be in part due to left lower l obe collapse on yesterday's CT examination.
--- NOTE | 2021-07-11 11:52 | ECG_ITS ---
Measurements Intervals [place] Rate: 89 P: 9 DC: 155 QRS: 186 QRSD: 161 T: -6 QT: 440 QTc: 537 Interpretive Statements ELECTRONIC ATRIAL PACEMAKER ELECTRONIC VENTRICULAR PACEMAKER BASELINE ARTIFACT- I, II, III, AVR, AVL, AVF, V3-V6 NO FURTHER INTERPRETATION IS POSSIBLE ATYPICAL ECG Electronically Signed On 07-11-2021 12:11:50 METALLOGRAPHIC TECHNICIAN by Sanya Stewart D.O.
[2021-07-11 12:18] LABS: Basophils Percent Auto 0.4 % (0.2-1.2); Hematocrit 26.3 % (42.0-52.0); Hemoglobin 8.1 g/dL (14.0-18.0); Immature Granulocyte Absolute 0.03 K/mm3 (0.00-0.031); Immature Granulocyte Percent A 1.3 % (0-0.5); Immature Platelet Fraction Pct 7.3 % (0.9-11.2); Lymphocytes Absolute Auto 0.96 K/mm3 (0.9-3.2); Lymphocytes Percent Auto 40.3 % (18.3-44.2); Mean Corpuscular HGB Conc 30.8 g/dl (32-36); Mean Corpuscular Hemoglobin 34.6 pg (26-34); Mean Corpuscular Volume 112.4 fl (80-100); Mean Platelet Volume 11.4 fl (7.4-10.4); Monocytes Absolute Auto 0.2 K/mm3 (0.1-0.6); Monocytes Percent Auto 9.7 % (2.6-8.5); Neutrophils Absolute Auto 1.2 K/mm3 (1.3-6.7); Neutrophils Percent Auto 48.3 % (45.5-73.1); Platelet Count Result 148 k/mm3 (150-375); Red Blood Count 2.34 M/mm3 (4.6-6.20); Red Cell Distribution Width 21.1 % (11.5-14.5); White Blood Count 2.4 K/mm3 (4.5-10.0)
[2021-07-11 12:25] LABS: Alanine Aminotransferase 14 U/L (4-50); Albumin Level 3.6 g/dL (3.5-5.1); Alkaline Phosphatase 50 U/L (38-126); Anion Gap 3 mmol/L (8-16); Aspartate Amino Transferase 20 U/L (17-59); Bilirubin,Total 0.6 mg/dL (0.2-1.3); Blood Urea Nitrogen 27 mg/dL (9-20); Calcium 9.1 mg/dL (8.4-10.2); Carbon Dioxide 36 mmol/L (22-30); Chloride 93 mmol/L (98-107); Estimated CRCL calculation 43 ml/min; Estimated Glomerular Filt Rate 49; Glucose 137 mg/dL (65-110); Potassium 4.2 mmol/L (3.4-5.0); Sodium 132 mmol/L (137-145)
--- NOTE | 2021-07-11 16:00 | PM.IMHP ---
H&P: HPI History of Present Illness Date/Time: 07/11/21 16:00 Chief Complaint: Shortness of breath. Narrative: This is a very pleasant 80-year-old male with coronary artery disease, ischemic cardiomyopathy with improved ejection fraction, atrial fibrillation, type 2 diabetes mellitus, chronic respiratory failure on 4 L nasal cannula, ventricular tachycardia status post ICD insertion, and myelodysplastic syndrome who presented to the emergency department earlier today for evaluation of shortness of breath. He is known to the hospitalist service and was admitted to us in April with hypotension and due to ongoing issues with soft blood pressures his Entresto was discontinued. At some point time the patient apparently stopped taking his carvedilol and his defibrillator fired on 06/17/2021. 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 He started back on carvedilol and has been compliant with that since. He saw Dr. Miller in routine follow-up on 07/07/2021 and had no complaints at that time. Unfortunately over the last 2 days he has had increasing shortness of breath and in fact he has been wearing his CPAP throughout the day as needed instead of his nasal cannula. Chest x-ray today showed progression of airspace disease compared to previous examination with abnormal reticulation small to moderate left pleural effusion and a small right pleural effusion with a differential to include pneumonia and/or edema. With further questioning he does endorse a chronic cough productive of pale yellow phlegm and that is unchanged. He had some mild nausea earlier today but no vomiting. He denies syncope and near-syncope. He has not had chest pain, pleuritic pain, or palpitations. He has not noticed any significant lower extremity edema or change in weight. He denies fever, chills, and sweats. He has not had sinus congestion, rhinorrhea, otalgia, or odynophagia. He has been tested multiple times for COVID this year and he has been negative each time. He has no known exposure to those positive for COVID 19 he has been vaccinated for such. Review of Systems Review of Systems: Twelve systems were reviewed and are negative except for as per HPI. [facility] Past Medical History Medical History Atrial fibrillation Benign prostatic hyperplasia Chronic anemia Chronic anticoagulation Chronic hypoxemic respiratory failure Chronic kidney disease, stage 3 Chronic respiratory failure with hypoxia Oxygen at 3 L per nasal cannula. Congestive heart failure Echocardiogram August 2020: EF of 45%, diastolic dysfunction with elevated left heart pressures, mild left atrial enlargement. Coronary artery disease Hyperlipidemia Hypertension Ischemic cardiomyopathy EF of 20-25% on cardiac catheterization June 2020. EF improved to 50 to 55% on echocardiogram Megaloblastic anemia Obstructive sleep apnea Patient uses a trilogy while sleeping. Type 2 diabetes mellitus Hemoglobin A1c was 5.8% on 05/02/2021. Vitamin D deficiency Surgical History Surgical History History of angioplasty History of aortic valve replacement History of cardiac catheterization Right coronary intervention in the remote past, LAD intervention about 20 years ago. Repeat catheterization [facility] at [facility] with mid RCA intervention, catheterization June 2020 demonstrated EF of 20-25% with no new coronary artery occlusions History of coronary artery stent placement History of lumbar laminectomy Presence of biventricular AICD (~12/2019) Status post ablation of ventricular arrhythmia (~05/2020) [facility] Family History Family History Sibling Diabetes mellitus Mother Dementia Parkinsons disease Father
--- NOTE | 2021-07-11 16:29 | ED.SOB ---
HPI - SOB/Dyspnea General Chief Complaint: Shortness of Breath/Dyspnea Stated Complaint: sob Time Seen by Provider: 07/11/21 13:29 Source: patient Mode of arrival: ambulatory Limitations: no limitations History of Present Illness HPI Narrative: 80-year-old male Multiple medical problems including COPD, CHF/ischemic cardiomyopathy, A. fib, pacer/AICD, myelodysplasia with severe anemia Typically on 5 L of home O2 and CPAP at night Patient complains that since Sunday morning, 2 days ago, he has been more short of breath than he usually is He does not have issues when he is resting wearing his oxygen but he gets very dyspneic when he tries to walk around Nothing else change that he knows of He denies any chest pain, denies missing any meds, no dietary indiscretions, has not been otherwise ill with a new cough or a fever He has uses Trelegy and metered-dose inhaler a couple times a day Related Data Home Medications Medication Instructions Recorded Confirmed finasteride 5 mg tablet 5 mg PO DAILY 09/10/19 07/07/21 fenofibric acid (choline) 135 mg 135 mg PO DAILY 09/11/19 07/07/21 capsule,delayed release omega3-dha 200 mg-epa 300 mg-othr 2 cap PO HS 09/11/19 07/07/21 om3 100 mg-fish oil 1,000 mg capsule Eliquis 5 mg PO BID 12/18/19 07/07/21 clopidogrel [Plavix] 75 mg PO DAILY #0 12/19/19 07/07/21 cyanocobalamin (vitamin B-12) 1,500 mcg PO BID 12/19/19 07/07/21 [Vitamin B-12] coenzyme Q10 [CoQ-10] 200 mg PO DAILY 12/21/19 07/07/21 rosuvastatin 5 mg tablet 5 mg PO DAILY 05/07/20 07/07/21 mexiletine 150 mg BYMOUTH BID 09/13/20 07/07/21 amiodarone 200 mg tablet 200 mg PO BID tablet 10/04/20 07/07/21 carvedilol 3.125 mg tablet 3.125 mg PO Q12H 10/04/20 07/07/21 cholecalciferol (vitamin D3) 2,000 mcg PO DAILY 11/22/20 07/07/21 ferrous sulfate [Iron (ferrous 325 mg PO BID 01/24/21 07/07/21 sulfate)] Daliresp 500 mcg PO DAILY 04/10/21 07/07/21 bumetanide 2 mg tablet 2 mg PO BID 04/20/21 07/07/21 potassium chloride 20 mEq 20 meq PO DAILY 04/20/21 07/07/21 tablet,extended release(part/cryst) Adults Multivitamin 1 tablet PO DAILY 05/02/21 07/07/21 nitroglycerin 0.3 mg sublingual 0.3 mg SUBLINGUAL ONCE PRN tablet 06/02/21 07/07/21 tablet levofloxacin 500 mg PO DAILY 07/07/21 07/07/21 ondansetron 4 mg PO Q6-8H 07/11/21 07/11/21 Allergies Allergy/AdvReac Type Severity Reaction Status Date / Time No Known Allergies Allergy Verified 07/11/21 12:01 Review of Systems Review of Systems: All systems reviewed & are unremarkable except as noted in HPI and below Constitutional: Constitutional: Reports no additional constitutional complaints, Denies chills, Reports fatigue, Denies fever(s), Denies headache(s) and Reports weakness Eyes: Eyes: Reports no additional eye complaints and Denies change in vision ENT: Denies headache(s) and Denies sore throat Cardiovascular: Cardiovascular: Denies chest pain and Denies dyspnea Respiratory: Respiratory: Reports chest congestion, Denies cough and Reports dyspnea Gastrointestinal: Gastrointestinal: Denies abdominal pain, Denies diarrhea and Denies vomiting Genitourinary: Genitourinary: Denies dysuria and Denies urinary frequency Musculoskeletal: Musculoskeletal: Denies deformity, Denies arthralgias, Denies joint swelling and Denies numbness Integumentary/Breasts: Skin/Breast: Denies rash and Denies wounds Neurologic: Denies headache(s), Denies focal weakness and Denies numbness Psychiatric: Psychiatric: Reports no additional psychiatric complaints Endocrine: Endocrine: Reports no additional endocrine complaints Hematologic/Lymphatic: Hematologic/Lymphatic: Reports no additional hematologic/lymphatic complaints Allergic/Immunologic: Allergic/Immunologic: Reports no additional allergic/immunologic complaints PMFSH Past Medical History Medical History Atrial fibrillation Benign prostatic hyperplasia Chronic anem
[2021-07-11] MEDS: IPRATROPIUM BR 0.02% INH SOLN 0.5 MG/2.5 ML VIAL INHALATION ×2 (16:50→20:55)
[2021-07-11] MEDS: ALBUTEROL SULFATE NEB 2.5 MG/0.5 ML INH 5 MG INHALATION ×2 (16:51→20:55)
[2021-07-11] MEDS: FUROSEMIDE INJ 40 MG/4 ML VIAL 20 MG IV PUSH ×2 (17:09→22:03)
--- NOTE | 2021-07-11 17:11 | PC.NURSE ---
SPoke with Dr. Birmingham prior to admin Lasix due to pt blood pressure being low. Dr. Birmingham was ok with pressure and said to proceed with medication.
[2021-07-11 17:48] LABS: NT Pro B Type Natriuretic Pept 3050 pg/mL (5-100)
--- NOTE | 2021-07-11 18:33 | PC.NURSE ---
Ordered pt dinner tray
--- NOTE | 2021-07-11 21:58 | PC.NURSE ---
This patient, Freddy Mireles Jr., was admitted to [facility] Surg Room 306-02. Patient/family oriented to hospital policies and general routines including ID bracelet, bed and alarms, visiting hours, pain management, procedures, bathroom and other care routines, personal items, smoking policy, room service/diet, and visiting hours. Information on how to activate the Rapid Response Team has been discussed. Patient/Family are encouraged to report perceived risks to care and to ask questions if they do not understand what they are told or what they should do.
[2021-07-11] MEDS: carvediloL 3.125 MG TABLET PO (22:50)
[2021-07-12] VITALS (16 sets, daily range): BP systolic 97–134; BP diastolic 54–72; PULSE 89–100; RESP 20–24; TEMP 36.2–36.6; O2SAT 94–100
--- NOTE | 2021-07-12 05:22 | PC.NURSE ---
Pt night time medications were put in after 0000. Medications were not acknowledged until 0520. Not given HS medications because AM medications will be given within the next 3 hours.
[2021-07-12 06:32] LABS: Hemoglobin 8.5 g/dL (14.0-18.0); Mean Corpuscular HGB Conc 31.5 g/dl (32-36); Mean Corpuscular Hemoglobin 35.6 pg (26-34); Mean Platelet Volume 11.7 fl (7.4-10.4); Platelet Count Result 156 k/mm3 (150-375); Red Blood Count 2.39 M/mm3 (4.6-6.20); Red Cell Distribution Width 20.9 % (11.5-14.5); White Blood Count 2.7 K/mm3 (4.5-10.0)
[2021-07-12 06:44] LABS: Anion Gap 8 mmol/L (8-16); Blood Urea Nitrogen 30 mg/dL (9-20); Calcium 9.2 mg/dL (8.4-10.2); Carbon Dioxide 32 mmol/L (22-30); Chloride 96 mmol/L (98-107); Estimated CRCL calculation 43 ml/min; Estimated Glomerular Filt Rate 49; Glucose 178 mg/dL (65-110); Magnesium 2.3 mg/dL (1.6-2.3); Potassium 4.6 mmol/L (3.4-5.0); Sodium 136 mmol/L (137-145)
[2021-07-12 07:36] LABS: Alveolar/Arterial O2 Gradient 587.2 mmHg; Base Excess ABG 6.2 mEq/l (+/-2.0); Fractional Inspired Oxygen 100 %; HCO3 ABG 32.6 mEq/l (22.0-26.0); Oxygen Content ABG 12.6 %vol (16.0-22.0); Oxygen Saturation ABG 92.6 % (95.0-100.0); Oxyhemoglobin 90.6 % THb (90.0-100.0); PO2 ABG 67.8 mmHg (80.0-100.0); PO2 FiO2 Ratio Arterial Blood 0.68 %; Total Hemoglobin 9.8 g/dL (12.0-18.0); pH ABG 7.368 (7.350-7.450)
[2021-07-12 07:37] LABS: Device HIGH FLOW NASAL CANN; Modified Allen's Test Pass; Site Drawn RIGHT RADIAL
[2021-07-12] MEDS: FUROSEMIDE INJ 40 MG/4 ML VIAL 20 MG IV PUSH ×2 (07:49→22:35)
[2021-07-12 07:54] LABS: Glucose Point of Care 225 mg/dl (65-105)
[2021-07-12] MEDS: FUROSEMIDE INJ 40 MG/4 ML VIAL (08:28)
[2021-07-12 09:34] LABS: CRP 1.7 mg/dL (<1.0); Lactate Dehydrogenase 394 U/L (313-618)
[2021-07-12] MEDS: PREGABALIN (*CRX) 50 MG CAPSULE 100 MG PO ×3 (11:27→18:15)
[2021-07-12] MEDS: CLOPIDOGREL BISULFATE 75 MG TABLET PO (11:28)
[2021-07-12] MEDS: carvediloL 3.125 MG TABLET PO ×2 (11:28→22:35)
[2021-07-12] MEDS: ROFLUMILAST 500 MCG TABLET PO (11:29)
[2021-07-12] MEDS: AMIODARONE HCL 200 MG TABLET PO ×2 (11:29→18:13)
[2021-07-12] MEDS: MEXILETINE HCL 150 MG CAPSULE PO ×2 (11:29→18:13)
[2021-07-12] MEDS: APIXABAN 5 MG TABLET PO ×2 (11:29→22:46)
[2021-07-12 11:39] LABS: Glucose Point of Care 205 mg/dl (65-105)
--- NOTE | 2021-07-12 12:06 | PC.NURSE ---
report given to Halima Chang in IMU. patient moving with patient belongings to room 210
--- NOTE | 2021-07-12 12:52 | PDONCCN ---
HPI - Date of Consult Date/Time: 07/12/21 12:52 Requesting Physician: Delmi Small PA-C Primary Care Provider: Jesus Avelar MD - Consult Narrative Reason for consult: Myelodysplastic syndrome Narrative: Freddy Mireles Jr. 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 He is also on Procrit injection. Patient has a history of skipping cardiomyopathy with coronary artery disease and atrial fibrillation along with type 2 diabetes. He came into the hospital with worsening of shortness of breath. He denies any fevers and chills. Denies any chest pain. Chest x-ray showed edema/pneumonia along with small to moderate left and small right-sided pleural effusion. CTA chest showed no evidence of PE. There was diffuse bilateral lung disease at least in part to pulmonary edema could not exclude superimposed pneumonia. There was small to moderate bilateral pleural effusion along with cardiomegaly. Labs showed hemoglobin of 8.5 which is better for his baseline hemoglobin. Denies any bleeding. Review of Systems - Review of Systems All systems reviewed & are unremarkable except as noted in HPI and bel - Neurologic Reports weakness, Denies headache(s), Denies focal weakness, Denies numbness [facility] Medical History: Medical History (Last Reviewed 07/11/21 @ 23:59 by Nerissa Mccoy PA-C) Atrial fibrillation Benign prostatic hyperplasia Chronic anemia Chronic anticoagulation Chronic hypoxemic respiratory failure Chronic kidney disease, stage 3 Chronic respiratory failure with hypoxia Oxygen at 3 L per nasal cannula. Congestive heart failure Echocardiogram August 2020: EF of 45%, diastolic dysfunction with elevated left heart pressures, mild left atrial enlargement. Coronary artery disease Hyperlipidemia Hypertension Ischemic cardiomyopathy EF of 20-25% on cardiac catheterization June 2020. EF improved to 50 to 55% on echocardiogram Megaloblastic anemia Obstructive sleep apnea Patient uses a trilogy while sleeping. Type 2 diabetes mellitus Hemoglobin A1c was 5.8% on 05/02/2021. Vitamin D deficiency Surgical History: Surgical History (Last Reviewed 07/11/21 @ 23:59 by Nerissa Mccoy PA-C) History of angioplasty History of aortic valve replacement History of cardiac catheterization Right coronary intervention in the remote past, LAD intervention about 20 years ago. Repeat catheterization 2018 at [facility] with mid RCA intervention, catheterization June 2020 demonstrated EF of 20-25% with no new coronary artery occlusions History of coronary artery stent placement History of lumbar laminectomy Presence of biventricular AICD Onset Date: ~12/2019 Status post ablation of ventricular arrhythmia Onset Date: ~05/2020 Keri Doran Family History: Family History (Last Reviewed 07/11/21 @ 23:59 by Nerissa Mccoy PA-C) Sibling Diabetes mellitus Mother Dementia Parkinsons disease Father Hypertension Chronic obstructive pulmonary disease Heart disease Sibling Diabetes mellitus Mother Parkinsons disease Dementia Father Hypertension Chronic obstructive pulmonary disease Heart disease - Social History Social History: Social History (Last Updated 07/12/21 @ 00:00 by Nerissa Mccoy PA-C) Alcohol Use: Alcohol use details: Smoking Status: Approximate Smoking End Date: 1987 [facility] Medications Medication Instructions Recorded Confirmed Type finasteride 5 mg tablet 5 mg PO DAILY 09/10/19 07/11/21 History fenofibric acid (choline) 135 mg 135 mg PO DAILY 09/11/19 07/11/21 History capsule,delayed release omega3-dha 200 mg-epa 300 mg-othr 2 cap PO BID 09/11/19 07/11/21 History om3 100 mg-fish oil 1,000 mg capsule Eliquis 5 mg PO BID 12/18/19 07/11/21 History clopidogrel [Plavix] 75 mg PO
--- NOTE | 2021-07-12 13:58 | PM.CNCAR ---
Assessment and Plan Assessment and plan (1) Congestive heart failure: Code(s): I50.9 - Heart failure, unspecified Status: Acute Assessment and Plan: EF 50-55% by most recent echocardiogram. Check BNP. Complicated picture with evidence of pulmonary edema on imaging without peripheral edema. Abdomen mildly distended but is soft. Continue IV Lasix. Monitor renal function, electrolytes closely. Monitor blood pressure. Accurate input and output, daily weight, less than 2 g daily sodium intake. Lasix 20 mg IV q.12 hours for now. Will observe response to therapy. Continue BiPAP support wean as tolerated. No suggestion anginal symptoms. Patient is currently in isolation for COVID rule out. (2) Acute respiratory failure with hypoxia and hypercapnia: Code(s): J96.01 - Acute respiratory failure with hypoxia; J96.02 - Acute respiratory failure with hypercapnia Status: Acute Assessment and Plan: As above, continue O2 supplementation, BiPAP. Appreciate pulmonology involvement. He remains on IV antibiotics and was given steroids at presentation. (3) Atrial fibrillation: Qualifiers: Atrial fibrillation type: unspecified Qualified Code(s): I48.91 - Unspecified atrial fibrillation Code(s): I48.91 - Unspecified atrial fibrillation Status: Chronic Assessment and Plan: Continue systemic anticoagulation. Follow H&H. Continue carvedilol as blood pressure permits. (4) CAD (coronary artery disease): Code(s): I25.10 - Atherosclerotic heart disease of [place] coronary artery without angina pectoris Status: Chronic Assessment and Plan: Remains on clopidogrel, carvedilol, rosuvastatin. No clear anginal symptoms. (5) Myelodysplastic syndrome: Code(s): D46.9 - Myelodysplastic syndrome, unspecified Status: Acute Assessment and Plan: Follow H&H. Appreciate hematology involvement. (6) ICD (implantable cardioverter-defibrillator) in place: Code(s): Z95.810 - Presence of automatic (implantable) cardiac defibrillator Status: Acute Assessment and Plan: Telemetry. He has a history of intermittent ventricular tachycardia status post VT ablation. He is status post ICD. Monitor electrolytes closely keep potassium around 4 magnesium in 2 respectively. As necessary. Continue carvedilol and amiodarone. (7) History of ventricular tachycardia: Code(s): Z86.79 - Personal history of other diseases of the circulatory system Status: Acute Assessment and Plan: As above. Nonsustained VT noted on telemetry. Continue mexiletine. History of Present Illness History of Present Illness Consult date/time: Date of service: 07/12/21 13:58 Cardiology consultation at the request of Dr. Birmingham for our opinion regarding CHF. Requesting physician: Power Birmingham MD Consult reason: congestive heart failure Reason For Visit: CHF, COPD, anemia, myelodysplasia Narrative: Patient is a very pleasant yet complicated 80-year-old male who is followed by Dr. 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 SECURITY ARCHITECT, LAD stent 1999, LAD and left main stent, LAD PCI 2019 history of paroxysmal atrial fibrillation on chronic amiodarone ischemic cardiomyopathy and ventricular tachycardia status post ICD with appropriate ICD shock May 2021 for ventricular tachycardia, history of VT ablation, history of chronic systolic and diastolic heart failure with multiple prior hospitalizations, history of chronic anemia and myelodysplastic syndrome, COPD, chronic hypoxic respiratory failure on home O2 and NICOLE on CPAP who presented to the emergency department with rather rapid onset of acute shortness of breath. He states he had been feeling reasonably well until the last 2 days worsening shortness of breath and wearing his CPAP throughout the day more often set of his O2. He claims compliance wit
--- NOTE | 2021-07-12 14:15 | PM.CNPUL ---
Assessment and Plan Assessment and plan (1) Acute and chronic respiratory failure ([id number]): Code(s): J96.20 - Acute and chronic respiratory failure, unspecified whether with hypoxia or hypercapnia Status: Acute Assessment and Plan: Patient with a history of chronic hypercarbic and hypoxemic respiratory failure due to COPD on noninvasive ventilation at home with a trilogy machine at night and 4-5 L supplemental oxygen during the day and night. presents with 2-3 days worsening shortness of breath, Increased phlegm production, CT angiogram of the chest negative for PE but with bilateral pleural effusions and interstitial alveolar infiltrates. Etiology includes congestive heart failure with fluid overload and or bacterial or viral pneumonia. patient with a blood gas of 7.37-50 8/68 on 15 L nasal cannula in respiratory distress was placed on BiPAP 12/6 and 100% with a repeat blood gas of 7.4 forced/ 47/306. I have decreased him to an FiO2 of 50% and adjusted his rise to a level of 2 for his comfort. Patient is comfortable on the settings and he should remain on them overnight. Patient is being aggressively diuresed as blood pressure and renal function tolerate by Cardiology and hospitalist teams. Blood cultures, influenza swab and COVID RT PCR tests have been ordered. Patient has a history of Pseudomonas and Klebsiella both sensitive to Levaquin in his sputum from 12/22/[address] the patient on Levaquin and ceftriaxone for presumed community-acquired pneumonia. (2) COPD (chronic obstructive pulmonary disease): Code(s): J44.9 - Chronic obstructive pulmonary disease, unspecified Status: Chronic Assessment and Plan: Currently the patient has no evidence of a COPD exacerbation and I will continue his home trilogy 100-60 2.5-25 at 1 puff q.day and his Daliresp 500 mcg p.o. q.day. (3) Obstructive sleep apnea: Code(s): G47.33 - Obstructive sleep apnea (adult) (pediatric) Status: Chronic Assessment and Plan: Patient has a history of obstructive sleep apnea and COPD requiring home trilogy machine. I will attempt to obtain a download to assess his compliance and to determine his settings at home. I would continue his hospital BiPAP tonight. History of Present Illness History of Present Illness Consult date: 07/12/21 Reason for consult: hypoxemia Chief complaint: CHF, COPD, anemia, myelodysplasia Narrative: 07/12/2021: This is new Pulmonary consultation for hypercarbic and hypoxemic respiratory failure requiring BiPAP. 80-year-old male with a history of myelodysplastic syndrome being treated with Vidaza, cardiomyopathy, atrial fibrillation, diabetes, COPD on 4-5 L nasal cannula 24/7for 2-3 years,NICOLE on CPAP plus 4 L for 2-3 years, ventricular tachycardia status post ICD who is followed in the Pulmonary Clinic Patient was last seen in the Pulmonary Clinic on 06/07/2021 as a follow-up for obstructive sleep apnea using AVAPS S/T device. Dr. Martin's note Compliance : S/T AVAPS: AHI 7.4, 90% of the time EPAP 10.9 cm, central apnea 1.6, O apnea 0.8, Hypopnea index 5, 6.3 % of the night spent in periodic breathing, avg TV 754, 17 breaths per minute, Avg EPAP 10.8, large air leak 1 hour 23 [id number]/9/2021 - 06/05/2021 100% of the days > 4 hours. He is on a [employer]. Prosper is 11. he always falls asleep watching television or after lunch. There is a moderate chance of dozing if he is sitting and reading. There is a slight chance of dozing sitting inactive in a public place, as a passenger in a car for an hour or lying down to rest in the afternoon when circumstances permit. His COPD Assessment Test, CAT score is 22; this is elevated. He coughs at times. His sputum is garcia and more abundant in the morning. He never has chest tightness. He is short of breath most of the time when walking up a hill or flight of stairs. He has moderately limited doing
[2021-07-12 14:32] LABS: Influenza Control Positive
[2021-07-12 15:39] LABS: Alveolar/Arterial O2 Gradient 359.8 mmHg; Base Excess ABG 6.1 mEq/l (+/-2.0); Fractional Inspired Oxygen 100 %; HCO3 ABG 31.1 mEq/l (22.0-26.0); Oxygen Content ABG 13.4 %vol (16.0-22.0); Oxygen Saturation ABG 99.7 % (95.0-100.0); Oxyhemoglobin 98.1 % THb (90.0-100.0); PCO2 ABG 47.2 mmHg (35.0-45.0); PO2 FiO2 Ratio Arterial Blood 3.06 %; Total Hemoglobin 9.1 g/dL (12.0-18.0); pH ABG 7.436 (7.350-7.450)
[2021-07-12 15:40] LABS: Device NON-INVASIVE VENT; Modified Allen's Test Pass; Non-Invasive Expiratory Pressure 6 CMH2O; Non-Invasive Inspiratory Pressure 12 CMH2O; Non-Invasive Vent Rate 4 /MIN; Site Drawn RIGHT RADIAL
--- NOTE | 2021-07-12 16:16 | PM.IMPN ---
Progress Note: A&P Assessment and Plan (1) CHF exacerbation: Qualifiers: Heart failure type: combined systolic and diastolic Qualified Code(s): I50.43 - Acute on chronic combined systolic (congestive) and diastolic (congestive) heart failure Code(s): I50.9 - Heart failure, unspecified Status: Acute Assessment and Plan: -He will be diuresed with close monitoring of volume status and renal function. -Was getting just 20 mg IV lasix BID due to hypotension -BP today has been stable, gave extra dose of 40 mg IV with his morning dose for a total of 60 mg IV. -Continue monitoring closely -Repeat CXR in AM (2) Myelodysplastic syndrome: Code(s): D46.9 - Myelodysplastic syndrome, unspecified Status: Acute Assessment and Plan: -Hemoglobin and hematocrit are stable on review of previous labs. I am wondering if we got his hemoglobin up a bit if he would feel better and if his cardiac output when improve though I do not know if he would be able to tolerate the extra volume. -Oncology consulted, appreciate their input (3) Type 2 diabetes mellitus: Code(s): E11.9 - Type 2 diabetes mellitus without complications Status: Acute Assessment and Plan: -Random glucose is 137. Initiate sliding scale insulin, Accu-Cheks, and hypoglycemic protocol. (4) Chronic respiratory failure with hypoxia: Code(s): J96.11 - Chronic respiratory failure with hypoxia Status: Chronic Assessment and Plan: -Home oxygen is 4L NC chronically -I was called to patient's room early this morning as he was having increased sob and hypoxia. He was placed on 15L high flow nasal cannula but still had increased work of breathing. ABG and CXR were obtained stat and patient was placed on Bipap. No chest pain. -On Bipap currently -ABG prior to bipap was ph 7.368, CO2 47.2, PL2 67.8. Repeat ABG this afternoon after a few hours on bipap. -CTA w/ diffuse bilateral lung disease to at least in part to pulmonary edema and could not exclude superimposed pneumonia. Small to moderate bilateral pleural effusions with near complete collapse of the left lower lobe and partial collapse of the right lower lobe. -Pulm consulted who recommended Levaquin and rocephin, inflammatory markers/covid test, blood cultures, and influenza test (5) Community acquired pneumonia: Qualifiers: Laterality: left Lung location: upper lobe of lung Qualified Code(s): J18.9 - Pneumonia, unspecified organism Code(s): J18.9 - Pneumonia, unspecified organism Status: Acute Assessment and Plan: -see above chronic resp failure -pulm following, appreciate recommendations (6) Chronic kidney disease, stage 3: Code(s): N18.30 - Chronic kidney disease, stage 3 unspecified Status: Acute Assessment and Plan: Creatinine is stable on review of previous labs and will be monitored closely while diuresing. (7) Obstructive sleep apnea: Code(s): G47.33 - Obstructive sleep apnea (adult) (pediatric) Status: Chronic Assessment and Plan: CPAP will be provided for the patient to use while hospitalized. (8) Atrial fibrillation: Qualifiers: Atrial fibrillation type: paroxysmal Qualified Code(s): I48.0 - Paroxysmal atrial fibrillation Code(s): I48.91 - Unspecified atrial fibrillation Status: Chronic Assessment and Plan: Continue amiodarone and Eliquis for stroke prophylaxis. Subjective Date/time seen: 07/12/21 07:15 Interval history: 80-year-old male with coronary artery disease, ischemic cardiomyopathy with improved ejection fraction, atrial fibrillation, type 2 diabetes mellitus, chronic respiratory failure on 4 L nasal cannula, ventricular tachycardia status post ICD insertion, and myelodysplastic syndrome admitted to the hospital for CHF exacerbation. I was called to patient's room early this morning as
[2021-07-12 17:10] LABS: Glucose Point of Care 147 mg/dl (65-105)
[2021-07-12] MEDS: CYANOCOBALAMIN 500 MCG TABLET 1500 MCG PO (18:12)
[2021-07-12] MEDS: FERROUS SULFATE 324 MG TABLET PO (18:12)
[2021-07-12] MEDS: OMEGA 3 POLYUNSAT FATTY ACIDS 1 GM CAP 2 GM PO (18:13)
[2021-07-12 19:19] LABS: NT Pro B Type Natriuretic Pept 6630 pg/mL (5-100)
[2021-07-12 20:25] LABS: Glucose Point of Care 129 mg/dl (65-105)
[2021-07-12] MEDS: AMITRIPTYLINE HCL 25 MG TABLET PO (22:35)
[2021-07-13] VITALS (23 sets, daily range): BP systolic 92–114; BP diastolic 48–61; PULSE 89–99; RESP 18–26; TEMP 36.1–36.8; O2SAT 92–100
[2021-07-13 02:02] LABS: SARS-CoV-2 RNA PCR Negative
[2021-07-13 05:49] LABS: Basophils Percent Auto 0.3 % (0.2-1.2); Eosinophils Percent Auto 0.3 % (0-4.4); Hematocrit 24.2 % (42.0-52.0); Hemoglobin 7.7 g/dL (14.0-18.0); Immature Granulocyte Absolute 0.02 K/mm3 (0.00-0.031); Immature Granulocyte Percent A 0.5 % (0-0.5); Immature Platelet Fraction Pct 7.5 % (0.9-11.2); Lymphocytes Absolute Auto 1.46 K/mm3 (0.9-3.2); Lymphocytes Percent Auto 39.9 % (18.3-44.2); Mean Corpuscular HGB Conc 31.8 g/dl (32-36); Mean Corpuscular Hemoglobin 35.6 pg (26-34); Mean Platelet Volume 11.1 fl (7.4-10.4); Monocytes Absolute Auto 0.3 K/mm3 (0.1-0.6); Monocytes Percent Auto 7.9 % (2.6-8.5); Neutrophils Absolute Auto 1.9 K/mm3 (1.3-6.7); Neutrophils Percent Auto 51.1 % (45.5-73.1); Nucleated Red Blood Cells Perc 0.5 % (0.0-0.2); Platelet Count Result 131 k/mm3 (150-375); Red Blood Count 2.16 M/mm3 (4.6-6.20); Red Cell Distribution Width 21.1 % (11.5-14.5); White Blood Count 3.7 K/mm3 (4.5-10.0)
[2021-07-13 06:00] LABS: Anion Gap 4 mmol/L (8-16); Blood Urea Nitrogen 33 mg/dL (9-20); Calcium 8.7 mg/dL (8.4-10.2); Carbon Dioxide 34 mmol/L (22-30); Chloride 93 mmol/L (98-107); Estimated CRCL calculation 49 ml/min; Estimated Glomerular Filt Rate 58; Glucose 111 mg/dL (65-110); Potassium 4.1 mmol/L (3.4-5.0); Sodium 131 mmol/L (137-145)
[2021-07-13 08:21] LABS: Glucose Point of Care 114 mg/dl (65-105)
[2021-07-13] MEDS: carvediloL 3.125 MG TABLET PO ×2 (09:00→20:16)
[2021-07-13] MEDS: FLUTICASONE/UMECLIDIN/VILANTER 100-62.5-25 MCG ELLIPTA 1 PUFF INHALATION (09:47)
[2021-07-13] MEDS: METOCLOPRAMIDE HCL INJ 10 MG/2 ML VIAL 5 MG IV PUSH (10:13)
[2021-07-13] MEDS: CHOLECALCIFEROL 1,000 UNITS TABLET 2000 UNITS PO (10:16)
[2021-07-13] MEDS: TAMSULOSIN HCL 0.4 MG CAPSULE PO (10:17)
[2021-07-13] MEDS: AMIODARONE HCL 200 MG TABLET PO ×2 (10:17→18:13)
[2021-07-13] MEDS: CLOPIDOGREL BISULFATE 75 MG TABLET PO (10:17)
[2021-07-13] MEDS: MEXILETINE HCL 150 MG CAPSULE PO ×2 (10:17→18:12)
[2021-07-13] MEDS: FINASTERIDE 5 MG TABLET PO (10:17)
[2021-07-13] MEDS: APIXABAN 5 MG TABLET PO ×2 (10:17→20:17)
[2021-07-13] MEDS: PREGABALIN (*CRX) 50 MG CAPSULE 100 MG PO ×3 (10:17→18:12)
[2021-07-13] MEDS: FERROUS SULFATE 324 MG TABLET PO ×2 (10:18→18:13)
[2021-07-13] MEDS: ROSUVASTATIN 5 MG TABLET PO (10:18)
[2021-07-13] MEDS: CYANOCOBALAMIN 500 MCG TABLET 1500 MCG PO ×2 (10:18→18:13)
[2021-07-13] MEDS: FUROSEMIDE INJ 40 MG/4 ML VIAL 20 MG IV PUSH ×2 (10:18→20:17)
[2021-07-13] MEDS: OMEGA 3 POLYUNSAT FATTY ACIDS 1 GM CAP 2 GM PO ×2 (10:18→18:12)
[2021-07-13] MEDS: ROFLUMILAST 500 MCG TABLET PO (10:18)
--- NOTE | 2021-07-13 10:34 | PM.PNCARD ---
Progress Note: A&P Additional Plan 80-year-old man with severe ischemic cardiomyopathy as detailed in many a previous notes. He entered the hospital with shortness of breath and not a lot of physical exam evidence of volume overload. His chest x-ray did look congested and looks much better this morning. Certainly his myelodysplasia and anemia is confounding this and making his symptoms more problematic. I believe he would benefit from transfusion of packed red cells ideally to a hemoglobin of 10 g. He will need some diuretic between the units if we transfuse him today. Tony Miller MD [facility] Subjective Date/time seen: Date of service: 07/13/21 10:34 Interval history: Follow-up visit in this 80-year-old man with: Long well described history of severe ischemic cardiomyopathy status post percutaneous revascularization as well as pacemaker/ICD implantation. He entered the hospital again yesterday with shortness of breath. Unfortunately confounding all of his cardiac problems is he now has myelodysplastic syndrome and has become recurrently significantly anemic. Hemoglobin 8.1 on admission this morning down to 7.7. Spoke to the patient about advantages of a red cell transfusion given his symptoms and concurrent severe cardiomyopathy. Exam Const: General: comfortable and no acute distress Other: Very pleasant elderly chronically ill-appearing man HENMT: Mouth: Yes moist mucous membranes Eyes: Sclera: sclerae normal Pupils: Equal, round and reactive pupils present Neck: Neck: supple Other: No carotid bruits audible Resp: Effort & Inspection: normal respiratory effort Other: Diffuse central rhonchi noted Cardio: Rate: regular rate Rhythm: regular rhythm Other: PMI enlarged and laterally displaced GI: GI Palp: Yes Soft to palpation Auscultation: normal bowel sounds Skin: General skin exam: normal color Neuro: Cognition (Neuro): normal cognition Extrem: Other: Warm well perfused no edema at all Objective Data Vital Signs Vital Signs: Vital Signs - 24 hr 07/12/21 11:28 07/12/21 11:29 07/12/21 12:00 Temperature Pulse Rate 100 100 90 Respiratory Rate 20 Blood Pressure Pulse Oximetry 100 07/12/21 12:32 07/12/21 15:30 07/12/21 16:00 Temperature 36.2 C L Pulse Rate 89 Respiratory Rate 20 22 H 20 Blood Pressure 107/63 Pulse Oximetry 98 07/12/21 18:13 07/12/21 20:00 07/12/21 21:40 Temperature 36.6 C Pulse Rate 90 90 Respiratory Rate 20 21 H Blood Pressure 97/56 L Pulse Oximetry 100 96 07/12/21 22:35 07/12/21 23:03 07/13/21 00:00 Temperature 36.6 C Pulse Rate 89 90 90 Respiratory Rate 24 H 20 Blood Pressure 100/57 L Pulse Oximetry 98 100 07/13/21 00:09 07/13/21 04:00 07/13/21 04:07 Temperature 36.6 C Pulse Rate 90 Respiratory Rate 18 20 20 Blood Pressure 107/55 L Pulse Oximetry 100 100 98 07/13/21 08:00 07/13/21 09:49 Temperature 36.1 C L Pulse Rate 90 Respiratory Rate 26 H Blood Pressure 103/61 Pulse Oximetry 100 92 Intake/Output Intake/Output: Intake & Output 07/10/21 07/11/21 07/12/21 07/13/21 23:59 23:59 23:59 23:59 Intake Total 550 450 Output Total 500 1200 Balance 50 -750 Meds/Results Medications: Active Medications Generic Name Dose Route Start Last Admin Trade Name Freq PRN Reason Stop Dose Admin Acetaminophen 650 mg 07/11/21 17:00 Acetaminophen 325 Mg Tablet PO Q4H PRN Mild Pain (1-3) or Fever Amiodarone HCl 200 mg 07/12/21 00:10 07/13/21 10:17 Amiodarone Hcl 200 Mg Tablet PO 200 mg BIDWM LAKESHIA Administration Amitriptyline HCl 25 mg 07/12/21 00:10 07/12/21 22:35 Amitriptyline Hcl 25 Mg Tablet PO 25 mg HS LAKESHIA Administration Apixaban 5 mg 07/12/21 00:20 07/13/21 10:17 Apixaban 5 Mg Tablet PO 5 mg Q12HR LAKESHIA Administration Carvedilol 3.125 mg 07/11/21 23:00 07/13/21 09:00 Carvedilol 3.125 Mg Tablet PO 3.125 mg Q12HR LAKESHIA Administrati
--- NOTE | 2021-07-13 10:59 | PM.PNPUL ---
Progress Note: A&P Assessment and Plan (1) Acute and chronic respiratory failure ([id number]): Code(s): J96.20 - Acute and chronic respiratory failure, unspecified whether with hypoxia or hypercapnia Status: Acute Assessment and Plan: 07/12 Patient with a history of chronic hypercarbic and hypoxemic respiratory failure due to COPD on noninvasive ventilation at home with a trilogy machine at night and 4-5 L supplemental oxygen during the day and night. presents with 2-3 days worsening shortness of breath, Increased phlegm production, CT angiogram of the chest negative for PE but with bilateral pleural effusions and interstitial alveolar infiltrates. Etiology includes congestive heart failure with fluid overload and or bacterial or viral pneumonia. patient with a blood gas of 7.37-50 on 15 L nasal cannula in respiratory distress was placed on BiPAP 12/ and 100% with a repeat blood gas of 7.4 forced/ 47/306. I have decreased him to an FiO2 of 50% and adjusted his rise to a level of 2 for his comfort. Patient is comfortable on the settings and he should remain on them overnight. Patient is being aggressively diuresed as blood pressure and renal function tolerate by Cardiology and hospitalist teams. Blood cultures, influenza swab and COVID RT PCR tests have been ordered. Patient has a history of Pseudomonas and Klebsiella both sensitive to Levaquin in his sputum from 12/22/[address] the patient on Levaquin and ceftriaxone for presumed community-acquired pneumonia. 07/13 Patient wore the BiPAP with a rate of 14, 12/6, 45% overnight and when I enter the room is saturations were 100%. patient stated that these settings were similar in feeling to his home settings. Patient states that he was breathing much better now and requested to take the BiPAP mask off. I placed him on 15 L high-flow nasal cannula saturations were 100 and he was in no respiratory distress and I weaned him down to 8 L NC. Currently he is on 7 L nasal cannula. He tells me that he is breathing back to his baseline. His COVID RT PCR test is negative, his influenza swab is negative. His white blood cell count is 3.7, hemoglobin 7.7, creatinine improved to 1.20. His chest x-ray this morning on BiPAP demonstrates improved congestion. Left greater than right pleural effusion. Per in's and out's he is diuresed 700 mL since admission. blood cultures are pending. Clinically he has responded to treatment for fluid overload and community-acquired pneumonia and I will continue this treatment and attempt him to wean him to his baseline oxygen which is 4-5 L nasal cannula. (2) COPD (chronic obstructive pulmonary disease): Code(s): J44.9 - Chronic obstructive pulmonary disease, unspecified Status: Chronic Assessment and Plan: 07/12 Currently the patient has no evidence of a COPD exacerbation and I will continue his home trilogy 100-60 2.5-25 at 1 puff q.day and his Daliresp 500 mcg p.o. q.day. I do not recommend systemic steroids at this time. 07/13 Patient has no wheezes and I will continue his home trelegy and daliresp. (3) Obstructive sleep apnea: Code(s): G47.33 - Obstructive sleep apnea (adult) (pediatric) Status: Chronic Assessment and Plan: 07/12 Patient has a history of obstructive sleep apnea and COPD requiring home trilogy machine. I will attempt to obtain a download to assess his compliance and to determine his settings at home. I would continue his hospital BiPAP tonight. 07/13 I obtained a download from his [employer] from 06/11/2021 through 07/10/2021. Patient is on a noninvasive ventilator with an AVAPS mode with a set rate of 12, tidal volume 500, expiratory pressure 11, minimal inspiratory pressure 18, maximal inspiratory pressure 30, inspiratory time 0.8 seconds, rise time 3. Patient has excellent compliance with usage at greater than 4 hours of 96.7% or 04/18/2030
--- NOTE | 2021-07-13 11:22 | PCRCNOTE ---
Left voicemail with patient's , Torie, requesting that they bring patient's home cpap (avaps) unit per Dr. Richardson's request.
[2021-07-13 11:42] LABS: Glucose Point of Care 176 mg/dl (65-105)
[2021-07-13] MEDS: FENOFIBRATE NANOCRYSTALLIZED 145 MG TABLET PO (14:11)
[2021-07-13 14:19] LABS: Creatinine Urine 92.4 mg/dL
[2021-07-13] MEDS: ALBUTEROL SULFATE NEB 2.5 MG/0.5 ML INH INHALATION (15:30)
[2021-07-13 17:13] LABS: Glucose Point of Care 177 mg/dl (65-105)
--- NOTE | 2021-07-13 17:51 | PM.IMPN ---
Progress Note: A&P Assessment and Plan (1) CHF exacerbation: Qualifiers: Heart failure type: combined systolic and diastolic Qualified Code(s): I50.43 - Acute on chronic combined systolic (congestive) and diastolic (congestive) heart failure Code(s): I50.9 - Heart failure, unspecified Status: Acute Assessment and Plan: -He will be diuresed with close monitoring of volume status and renal function. -Continue Lasix 20 mg IV BID -Repeat CXR today with improving pulmonary edema -cardiology consulted (2) Myelodysplastic syndrome: Code(s): D46.9 - Myelodysplastic syndrome, unspecified Status: Acute Assessment and Plan: -Hemoglobin and hematocrit are stable on review of previous labs. I am wondering if we got his hemoglobin up a bit if he would feel better and if his cardiac output when improve though I do not know if he would be able to tolerate the extra volume. -Oncology consulted, Dr. Fermin recommends waiting on a transfusion at this time. He states we should recheck it tomorrow and if below 7.5 we can transfuse. (3) Type 2 diabetes mellitus: Code(s): E11.9 - Type 2 diabetes mellitus without complications Status: Acute Assessment and Plan: -Random glucose is 137. Initiate sliding scale insulin, Accu-Cheks, and hypoglycemic protocol. (4) Chronic respiratory failure with hypoxia: Code(s): J96.11 - Chronic respiratory failure with hypoxia Status: Chronic Assessment and Plan: -Home oxygen is 4L NC chronically -I was called to patient's room 07/13 as he was having increased sob and hypoxia. He was placed on 15L high flow nasal cannula but still had increased work of breathing. ABG and CXR were obtained stat and patient was placed on Bipap. No chest pain. -On Bipap currently -ABG prior to bipap was ph 7.368, CO2 47.2, PL2 67.8. -CTA w/ diffuse bilateral lung disease to at least in part to pulmonary edema and could not exclude superimposed pneumonia. Small to moderate bilateral pleural effusions with near complete collapse of the left lower lobe and partial collapse of the right lower lobe. -Pulm consulted who recommended Levaquin and rocephin, inflammatory markers/covid test, blood cultures, and influenza test -Continue IV abx, covid negative, blood cultures no growth to date (5) Community acquired pneumonia: Qualifiers: Laterality: left Lung location: upper lobe of lung Qualified Code(s): J18.9 - Pneumonia, unspecified organism Code(s): J18.9 - Pneumonia, unspecified organism Status: Acute Assessment and Plan: -see above chronic resp failure -pulm following, appreciate recommendations (6) Chronic kidney disease, stage 3: Code(s): N18.30 - Chronic kidney disease, stage 3 unspecified Status: Acute Assessment and Plan: Creatinine is stable on review of previous labs and will be monitored closely while diuresing. (7) Obstructive sleep apnea: Code(s): G47.33 - Obstructive sleep apnea (adult) (pediatric) Status: Chronic Assessment and Plan: CPAP will be provided for the patient to use while hospitalized. (8) Atrial fibrillation: Qualifiers: Atrial fibrillation type: paroxysmal Qualified Code(s): I48.0 - Paroxysmal atrial fibrillation Code(s): I48.91 - Unspecified atrial fibrillation Status: Chronic Assessment and Plan: Continue amiodarone and Eliquis for stroke prophylaxis. Subjective Date/time seen: 07/13/21 13:00 Interval history: 80-year-old male with coronary artery disease, ischemic cardiomyopathy with improved ejection fraction, atrial fibrillation, type 2 diabetes mellitus, chronic respiratory failure on 4 L nasal cannula, ventricular tachycardia status post ICD insertion, and myelodysplastic syndrome admitted to the hospital for CHF exacerbation. Saw patient this afternoon. He did well
[2021-07-13 19:11] LABS: Sodium Urine Random < 5 meq/L
[2021-07-13] MEDS: AMITRIPTYLINE HCL 25 MG TABLET PO (20:16)
[2021-07-13 21:34] LABS: Glucose Point of Care 172 mg/dl (65-105)
[2021-07-14] VITALS (28 sets, daily range): BP systolic 89–100; BP diastolic 45–61; PULSE 74–94; RESP 16–24; TEMP 36.1–36.5; O2SAT 95–100
[2021-07-14 04:48] LABS: Eosinophils Percent Auto 0.4 % (0-4.4); Hematocrit 22.1 % (42.0-52.0); Immature Granulocyte Absolute 0.02 K/mm3 (0.00-0.031); Immature Granulocyte Percent A 0.8 % (0-0.5); Immature Platelet Fraction Pct 7.5 % (0.9-11.2); Lymphocytes Absolute Auto 1.16 K/mm3 (0.9-3.2); Lymphocytes Percent Auto 46.6 % (18.3-44.2); Mean Corpuscular HGB Conc 31.2 g/dl (32-36); Mean Corpuscular Volume 112.2 fl (80-100); Mean Platelet Volume 11.4 fl (7.4-10.4); Monocytes Absolute Auto 0.2 K/mm3 (0.1-0.6); Monocytes Percent Auto 8.4 % (2.6-8.5); Neutrophils Absolute Auto 1.1 K/mm3 (1.3-6.7); Neutrophils Percent Auto 43.8 % (45.5-73.1); Platelet Count Result 104 k/mm3 (150-375); Red Blood Count 1.97 M/mm3 (4.6-6.20); White Blood Count 2.5 K/mm3 (4.5-10.0)
[2021-07-14 05:01] LABS: Alanine Aminotransferase 13 U/L (4-50); Albumin Level 3.1 g/dL (3.5-5.1); Alkaline Phosphatase 42 U/L (38-126); Anion Gap 1 mmol/L (8-16); Aspartate Amino Transferase 18 U/L (17-59); Bilirubin,Total 0.5 mg/dL (0.2-1.3); Blood Urea Nitrogen 32 mg/dL (9-20); Calcium 8.5 mg/dL (8.4-10.2); Carbon Dioxide 35 mmol/L (22-30); Chloride 97 mmol/L (98-107); Estimated CRCL calculation 43 ml/min; Estimated Glomerular Filt Rate 49; Glucose 108 mg/dL (65-110); Magnesium 2.2 mg/dL (1.6-2.3); Phosphorus 2.9 mg/dL (2.5-4.5); Potassium 3.6 mmol/L (3.4-5.0); Sodium 133 mmol/L (137-145)
[2021-07-14 05:02] LABS: Hemoglobin 6.9 g/dL (14.0-18.0)
[2021-07-14] MEDS: POTASSIUM CHLORIDE 20 MEQ PACKET (FOR LIQUID) 40 MEQ PO (07:34)
[2021-07-14] MEDS: AMIODARONE HCL 200 MG TABLET PO ×2 (07:35→15:58)
[2021-07-14] MEDS: FERROUS SULFATE 324 MG TABLET PO ×2 (07:35→15:58)
[2021-07-14] MEDS: FUROSEMIDE INJ 40 MG/4 ML VIAL 20 MG IV PUSH ×2 (08:25→20:26)
[2021-07-14] MEDS: CYANOCOBALAMIN 500 MCG TABLET 1500 MCG PO ×2 (08:25→15:58)
[2021-07-14] MEDS: FENOFIBRATE NANOCRYSTALLIZED 145 MG TABLET PO (08:25)
[2021-07-14] MEDS: ROSUVASTATIN 5 MG TABLET PO (08:25)
[2021-07-14] MEDS: CHOLECALCIFEROL 1,000 UNITS TABLET 2000 UNITS PO (08:25)
[2021-07-14] MEDS: CLOPIDOGREL BISULFATE 75 MG TABLET PO (08:26)
[2021-07-14] MEDS: PREGABALIN (*CRX) 50 MG CAPSULE 100 MG PO ×3 (08:26→15:58)
[2021-07-14] MEDS: OMEGA 3 POLYUNSAT FATTY ACIDS 1 GM CAP 2 GM PO ×2 (08:26→15:58)
[2021-07-14] MEDS: APIXABAN 5 MG TABLET PO ×2 (08:26→20:26)
[2021-07-14] MEDS: TAMSULOSIN HCL 0.4 MG CAPSULE PO (08:26)
[2021-07-14] MEDS: ROFLUMILAST 500 MCG TABLET PO (08:26)
[2021-07-14] MEDS: MEXILETINE HCL 150 MG CAPSULE PO ×2 (08:26→15:58)
[2021-07-14] MEDS: FINASTERIDE 5 MG TABLET PO (08:27)
[2021-07-14] MEDS: carvediloL 3.125 MG TABLET PO (08:27)
[2021-07-14 08:56] LABS: Glucose Point of Care 112 mg/dl (65-105)
[2021-07-14] MEDS: FLUTICASONE/UMECLIDIN/VILANTER 100-62.5-25 MCG ELLIPTA 1 PUFF INHALATION (09:12)
--- NOTE | 2021-07-14 10:12 | PM.PNCARD ---
Progress Note: A&P Assessment and Plan (1) Ventricular tachycardia: Code(s): I47.2 - Ventricular tachycardia Status: Acute Assessment and Plan: As above. He has a history of VT ablation on multiple antiarrhythmic therapy. Recurrent longer runs of more sustained VT noted on telemetry terminated with antitachycardia pacing. Continue mexiletine, carvedilol and amiodarone. Considered up titration of amiodarone, however, after further discussion patient reports significant side effects with higher doses of amiodarone prompting reduction. Therefore will increase carvedilol to 6.25 mg twice daily as BP permits. Do not hold for systolic blood pressures in the 90s this is very important for rhythm control. Magnesium and potassium stable this morning. Keep replete to 2.0 and 4.0 respectively. Patient remains quite ill with a guarded prognosis. We discussed these issues at length. He is well aware of his medical issues and potential complications which may be life-threatening. (2) Acute respiratory failure with hypoxia and hypercapnia: Code(s): J96.01 - Acute respiratory failure with hypoxia; J96.02 - Acute respiratory failure with hypercapnia Status: Acute Assessment and Plan: COVID PCR negative. As above, continue O2 supplementation, BiPAP. Appreciate pulmonology involvement. He remains on IV antibiotics and was given steroids at presentation. -anemia complicating his picture. Monitor volume status with transfusion. -although unlikely clinically to be a significant issue with amiodarone, I would recommend alternative to levofloxacin given his advanced age and risk for QT prolongation particularly given recurrent runs of ventricular tachycardia. Chest x-ray improved yesterday the patient is slowly improving clinically. Discussed possibility although remote amiodarone may be complicating respiratory status, however,, this is less likely and poses a significant problem given his history of difficult to manage ventricular tachycardia. (3) Congestive heart failure: Code(s): I50.9 - Heart failure, unspecified Status: Acute Assessment and Plan: EF 50-55% by most recent echocardiogram. BNP greater than 6000 at admission. Complicated picture with evidence of pulmonary edema on imaging without peripheral edema. Abdomen mildly distended but is soft. Continue IV Lasix. Monitor renal function, electrolytes closely. Monitor blood pressure. Accurate input and output, daily weight, less than 2 g daily sodium intake. Lasix 20 mg IV q.12 hours for now. Will observe response to therapy. Continue BiPAP support wean as tolerated. No suggestion anginal symptoms. . (4) Myelodysplastic syndrome: Code(s): D46.9 - Myelodysplastic syndrome, unspecified Status: Acute Assessment and Plan: Follow H&H. Appreciate hematology involvement. H&H declining certainly confounding his symptom complex. Agree with transfusion he will need diuresis in between units. Monitor electrolytes and renal function closely. (5) Atrial fibrillation: Qualifiers: Atrial fibrillation type: unspecified Qualified Code(s): I48.91 - Unspecified atrial fibrillation Code(s): I48.91 - Unspecified atrial fibrillation Status: Chronic Assessment and Plan: Continue systemic anticoagulation. Follow H&H. Continue carvedilol. (6) CAD (coronary artery disease): Code(s): I25.10 - Atherosclerotic heart disease of [place] coronary artery without angina pectoris Status: Chronic Assessment and Plan: Remains on clopidogrel, carvedilol, rosuvastatin. No clear anginal symptoms. (7) ICD (implantable cardioverter-defibrillator) in place: Code(s): Z95.810 - Presence of automatic (implantable) cardiac defibrillator Status: Acute Assessment and Plan: Continue Telemetry given runs of ventricular tachycardia. He has a history of intermittent ventricular tachycardia statu
[2021-07-14 11:59] LABS: Glucose Point of Care 188 mg/dl (65-105)
--- NOTE | 2021-07-14 12:37 | WPDONCPN ---
Progress Note: A/P - Additional Plan Low-grade myelodysplastic syndrome status post chemotherapy with vidaza x2. Left noted. Patient received 1 unit of packed red blood cell for hemoglobin of 6.9. Clinically he is improving. We will transfuse 1 unit of packed red blood cell for hemoglobin of less than 7.5. Continue iron and vitamin B12. Anemia of chronic kidney disease. Patient is on Procrit 29655 units on a biweekly basis. Next injection will be due in 1 week. Congestive heart failure. Medicine adjustment has been made by the family law specialist. COPD with acute on chronic respiratory failure. Pulmonary consultation noted. Patient is on Rocephin for pneumonia. Atrial fibrillation. Patient is on Eliquis. - Time Spent With Patient Total time spent is greater than 50% in coordination of care (as documented) at patient's floor/unit and/or counseling patient: 15 - 25 minutes Subjective Interval history: Myelodysplastic syndrome Unstable heart failure COPD with acute on chronic respiratory failure Atrial fibrillation Review of Systems - Review of Systems Patient seems to be breathing better after receiving 1 unit of packed red blood cell. He denies any chest pain. Denies any cough and proptosis. No fevers and chills. Remains quite tired and fatigued. - Neurologic Reports system reviewed and no additional complaints, except as documented, Reports weakness, Denies headache(s), Denies focal weakness, Denies numbness Exam Vital signs: Temp Pulse Resp BP Pulse Ox 36.5 C 90 24 H 89/47 L 100 07/14/21 12:00 07/14/21 12:00 07/14/21 12:00 07/14/21 12:00 07/14/21 12:00 Narrative: Lungs few crackles with occasional wheezing Cardiovascular irregular rhythm without any murmur Abdomen slightly distended bowel sounds are positive Extremities no edema PN: Objective Data - Labs CBC & Chem 7: 07/14/21 04:30 07/14/21 04:30 Labs: Laboratory Results - last 24 hr 07/13/21 07/13/21 07/13/21 14:04 15:56 21:32 WBC RBC Hgb Hct MCV MCH MCHC RDW Plt Count MPV Immature Gran % (Auto) Neut % (Auto) Lymph % (Auto) [place] % (Auto) Eos % (Auto) Baso % (Auto) Lymph # (Auto) [place] # (Auto) Eos # (Auto) Baso # (Auto) Abs Immat Gran (auto) Absolute Neuts (auto) Absolute Nucleated RBC Nucleated RBC % % Immature Plt Fraction Sodium Potassium Chloride Carbon Dioxide Anion Gap BUN Creatinine Estim Creat Clear Calc Estimated GFR Glucose POC Capillary Glucose 177 H 172 H Calcium Phosphorus Magnesium Total Bilirubin AST ALT Alkaline Phosphatase Total Protein Albumin Ur Random Sodium < 5 Urine Creatinine 92.4 Blood Type Antibody Screen Crossmatch 07/14/21 07/14/21 07/14/21 04:30 04:30 04:30 WBC 2.5 L RBC 1.97 L Hgb 6.9 L* Hct 22.1 L MCV 112.2 H MCH 35.0 H MCHC 31.2 L RDW 21.0 H Plt Count 104 L MPV 11.4 H Immature Gran % (Auto) 0.8 H Neut % (Auto) 43.8 L Lymph % (Auto) 46.6 H [place] % (Auto) 8.4 Eos % (Auto) 0.4 Baso % (Auto) 0.0 L Lymph # (Auto) 1.16 [place] # (Auto) 0.2 Eos # (Auto) 0.0 Baso # (Auto) 0.0 Abs Immat Gran (auto) 0.02 Absolute Neuts (auto) 1.1 L Absolute Nucleated RBC 0.0 Nucleated RBC % 0.0 % Immature Plt Fraction 7.5 Sodium 133 L Potassium 3.6 Chloride 97 L Carbon Dioxide 35 H Anion Gap 1 L BUN 32 H Creatinine 1.40 H Estim Creat Clear Calc 43 Estimated GFR 49 L Glucose 108 POC Capillary Glucose Calcium 8.5 Phosphorus 2.9 Cancelled Magnesium 2.2 Cancelled Total Bilirubin 0.5 AST 18 ALT 13 Alkaline Phosphatase 42 Total Protein 6.0 L Albumin 3.1 L Ur Random Sodium Urine Creatinine Blood Type Antibody Screen Crossmatch 07/14/21 07/14/21 07/14/21
--- NOTE | 2021-07-14 13:00 | PM.PNPUL ---
Progress Note: A&P Assessment and Plan (1) Acute and chronic respiratory failure ([id number]): Qualifiers: Respiratory failure complication: unspecified whether with hypoxia or hypercapnia Qualified Code(s): J96.20 - Acute and chronic respiratory failure, unspecified whether with hypoxia or hypercapnia Code(s): J96.20 - Acute and chronic respiratory failure, unspecified whether with hypoxia or hypercapnia Status: Acute Assessment and Plan: 80-year-old man presented with hypoxic hypercapnic respiratory failure related to pulmonary edema and bilateral pleural effusions. The patient has received treatment for congestive heart failure with significant improvement of his respiratory status. On last chest x-ray there is significant clearing of pulmonary congestion bilaterally, and also of the right pleural effusion. Left pleural effusion still present on today's chest x-ray. Patient using home ventilator at night and p.r.n. during the day. his gas exchange has significantly improved as judged by the O2 saturation. He had no shortness of breath while he used Supplemental oxygen via nasal cannula this a.m.. Plan is as follows continue with current treatment. No need to add another antibiotic in place of levofloxacin. Continue medications for COPD. (2) Obstructive sleep apnea: Code(s): G47.33 - Obstructive sleep apnea (adult) (pediatric) Status: Acute (3) Congestive heart failure: Qualifiers: Heart failure chronicity: chronic Heart failure type: unspecified Qualified Code(s): I50.9 - Heart failure, unspecified Code(s): I50.9 - Heart failure, unspecified Status: Acute (4) Chronic anemia: Code(s): D64.9 - Anemia, unspecified Status: Acute (5) Myelodysplastic syndrome: Code(s): D46.9 - Myelodysplastic syndrome, unspecified Status: Acute Subjective Date/time seen: patient admitted with acute hypoxemic and hypercapnic respiratory failure related to congestive heart failure. He has got history of sleep apnea and COPD and has been on noninvasive ventilatory support at home via trilogy ventilator. Patient using his own a home ventilator while in the hospital. He stated that his breathing is much improved. He uses the home ventilator at night and p.r.n. during the day. He was able to breathe on supplemental oxygen via nasal cannula with no significant worsening of his shortness of breath. He has been transfused red blood cells for anemia. He has no orthopnea fever or chills or lower extremity edema. He has been coughing some light yellow phlegm for at least couple of weeks. Again his respiratory status significantly improved since admission. has received treatment with ceftriaxone and levofloxacin for possible lower respiratory tract infection. Levofloxacin was discontinued earlier today be because of possible interaction with amiodarone. Review of Systems Review of Systems: All systems reviewed & are unremarkable except as noted in HPI and below (and below.) Exam Narrative: GENERAL APPEARANCE: Well developed, well nourished, alert and cooperative, and appears to be in In mild respiratory distress while breathing oxygen via nasal cannula. SKIN: Inspection of the skin reveals no rashes, ulcerations or petechiae. HEENT: Sclerae anicteric and conjunctivae pink and moist. Extraocular movements were intact and pupils were equal, round, and reactive to light. The oral mucosa, hard and soft palate, tongue and posterior pharynx were normal. NECK: Supple. There was no thyroid enlargement, and no tenderness, or masses were felt. JVD present CHEST: Normal AP diameter and normal contour without any kyphoscoliosis. LUNGS: crackles at bases posteriorly and decreased breath sounds at left base. No wheezing CARDIAC: There was a regular rate and rhythm without any murmurs, gallops, rubs. ABDOMEN: Soft and nontender with normal bowel sounds. There was no
--- NOTE | 2021-07-14 15:45 | PM.IMPN ---
Progress Note: A&P Assessment and Plan (1) CHF exacerbation: Qualifiers: Heart failure type: combined systolic and diastolic Qualified Code(s): I50.43 - Acute on chronic combined systolic (congestive) and diastolic (congestive) heart failure Code(s): I50.9 - Heart failure, unspecified Status: Acute Assessment and Plan: -He will be diuresed with close monitoring of volume status and renal function. -has been consistently hypotensive so must be cautious with doses of diuretic -Continue Lasix 20 mg IV BID -Repeat CXR with improving pulmonary edema -Continue bipap support and wean as tolerated -cardiology consulted (2) Ventricular tachycardia: Code(s): I47.2 - Ventricular tachycardia Status: Acute Assessment and Plan: -Hx of VT ablation on multiple antiarrhythmic therarpy -recurrent longer runs of more sustained VT noted on telemetry terminated with antitachycardia pacing. -Per cardiology: continue mexiletine, carvedilol and amiodarone, increase carvedilol to 6.25 mg twice daily as BP permits. Do not hold for systolic blood pressures in the 90s this is very important for rhythm control. -Appreciate any further recommendations from cardiology (3) Myelodysplastic syndrome: Code(s): D46.9 - Myelodysplastic syndrome, unspecified Status: Acute Assessment and Plan: -Hemoglobin and hematocrit are stable on review of previous labs. I am wondering if we got his hemoglobin up a bit if he would feel better and if his cardiac output when improve though I do not know if he would be able to tolerate the extra volume. -Oncology consulted, Dr. Fermin recommended waiting until hgb dropped below 7.5 prior to transfusing. Today he was 6.9 so he is currently receiving 1 unit (4) Type 2 diabetes mellitus: Code(s): E11.9 - Type 2 diabetes mellitus without complications Status: Acute Assessment and Plan: -Random glucose is 137. Initiate sliding scale insulin, Accu-Cheks, and hypoglycemic protocol. (5) Chronic respiratory failure with hypoxia: Code(s): J96.11 - Chronic respiratory failure with hypoxia Status: Chronic Assessment and Plan: -Home oxygen is 4L NC chronically -I was called to patient's room 07/13/21 as he was having increased sob and hypoxia. He was placed on 15L high flow nasal cannula but still had increased work of breathing. ABG and CXR were obtained stat and patient was placed on Bipap. No chest pain. -On Bipap currently -ABG prior to bipap was ph 7.368, CO2 47.2, PL2 67.8. -CTA w/ diffuse bilateral lung disease to at least in part to pulmonary edema and could not exclude superimposed pneumonia. Small to moderate bilateral pleural effusions with near complete collapse of the left lower lobe and partial collapse of the right lower lobe. -Pulm consulted who recommended Levaquin and rocephin, inflammatory markers/covid test, blood cultures, and influenza test -Continue IV abx, covid negative, blood cultures no growth to date -IV Levaquin was discontinued due to runs of VT, per pulm no need to add additional abx to replace Levaquin (6) Community acquired pneumonia: Qualifiers: Laterality: left Lung location: upper lobe of lung Qualified Code(s): J18.9 - Pneumonia, unspecified organism Code(s): J18.9 - Pneumonia, unspecified organism Status: Acute Assessment and Plan: -see above chronic resp failure -pulm following, appreciate recommendations (7) Chronic kidney disease, stage 3: Code(s): N18.30 - Chronic kidney disease, stage 3 unspecified Status: Acute Assessment and Plan: Creatinine is stable on review of previous labs and will be monitored closely while diuresing. (8) Obstructive sleep apnea: Code(s): G47.33 - Obstructive sleep apnea (adult) (pediatric) Status: Chronic Assessment and Plan: CPAP will be provided for th
[2021-07-14 16:13] LABS: Glucose Point of Care 179 mg/dl (65-105)
[2021-07-14] MEDS: carvediloL 6.25 MG TABLET PO (20:26)
[2021-07-14] MEDS: AMITRIPTYLINE HCL 25 MG TABLET PO (20:26)
[2021-07-14] MEDS: METOCLOPRAMIDE HCL INJ 10 MG/2 ML VIAL 5 MG IV PUSH (20:35)
[2021-07-14 21:09] LABS: Glucose Point of Care 175 mg/dl (65-105)
[2021-07-15] VITALS (18 sets, daily range): BP systolic 92–107; BP diastolic 50–56; PULSE 89–91; RESP 14–22; TEMP 36.4–36.6; O2SAT 96–100
[2021-07-15 04:49] LABS: Basophils Percent Auto 0.4 % (0.2-1.2); Eosinophils Percent Auto 0.7 % (0-4.4); Hematocrit 25.5 % (42.0-52.0); Hemoglobin 8.1 g/dL (14.0-18.0); Immature Granulocyte Absolute 0.02 K/mm3 (0.00-0.031); Immature Granulocyte Percent A 0.7 % (0-0.5); Immature Platelet Fraction Pct 8.8 % (0.9-11.2); Lymphocytes Absolute Auto 1.12 K/mm3 (0.9-3.2); Lymphocytes Percent Auto 41.9 % (18.3-44.2); Mean Corpuscular HGB Conc 31.8 g/dl (32-36); Mean Corpuscular Hemoglobin 34.5 pg (26-34); Mean Corpuscular Volume 108.5 fl (80-100); Mean Platelet Volume 11.1 fl (7.4-10.4); Monocytes Absolute Auto 0.3 K/mm3 (0.1-0.6); Monocytes Percent Auto 10.9 % (2.6-8.5); Neutrophils Absolute Auto 1.2 K/mm3 (1.3-6.7); Neutrophils Percent Auto 45.4 % (45.5-73.1); Nucleated Red Blood Cells Perc 0.7 % (0.0-0.2); Platelet Count Result 89 k/mm3 (150-375); Red Blood Count 2.35 M/mm3 (4.6-6.20); Red Cell Distribution Width 23.3 % (11.5-14.5); White Blood Count 2.7 K/mm3 (4.5-10.0)
[2021-07-15 05:01] LABS: Anion Gap 2 mmol/L (8-16); Blood Urea Nitrogen 29 mg/dL (9-20); Calcium 8.3 mg/dL (8.4-10.2); Carbon Dioxide 36 mmol/L (22-30); Chloride 94 mmol/L (98-107); Estimated CRCL calculation 53 ml/min; Estimated Glomerular Filt Rate > 60; Glucose 111 mg/dL (65-110); Potassium 3.7 mmol/L (3.4-5.0); Sodium 132 mmol/L (137-145)
[2021-07-15 08:42] LABS: Glucose Point of Care 115 mg/dl (65-105)
[2021-07-15] MEDS: FLUTICASONE/UMECLIDIN/VILANTER 100-62.5-25 MCG ELLIPTA 1 PUFF INHALATION (09:31)
[2021-07-15] MEDS: PREGABALIN (*CRX) 50 MG CAPSULE 100 MG PO ×3 (10:04→17:26)
[2021-07-15] MEDS: CYANOCOBALAMIN 500 MCG TABLET 1500 MCG PO ×2 (10:04→17:27)
[2021-07-15] MEDS: carvediloL 6.25 MG TABLET PO (10:04)
[2021-07-15] MEDS: CLOPIDOGREL BISULFATE 75 MG TABLET PO (10:04)
[2021-07-15] MEDS: TAMSULOSIN HCL 0.4 MG CAPSULE PO (10:04)
[2021-07-15] MEDS: APIXABAN 5 MG TABLET PO ×2 (10:04→20:02)
[2021-07-15] MEDS: CHOLECALCIFEROL 1,000 UNITS TABLET 2000 UNITS PO (10:04)
[2021-07-15] MEDS: ROSUVASTATIN 5 MG TABLET PO (10:05)
[2021-07-15] MEDS: FENOFIBRATE NANOCRYSTALLIZED 145 MG TABLET PO (10:05)
[2021-07-15] MEDS: MEXILETINE HCL 150 MG CAPSULE PO ×2 (10:05→17:24)
[2021-07-15] MEDS: AMIODARONE HCL 200 MG TABLET PO ×2 (10:05→17:23)
[2021-07-15] MEDS: FERROUS SULFATE 324 MG TABLET PO ×2 (10:05→17:25)
[2021-07-15] MEDS: FINASTERIDE 5 MG TABLET PO (10:05)
[2021-07-15] MEDS: ROFLUMILAST 500 MCG TABLET PO (10:05)
[2021-07-15] MEDS: OMEGA 3 POLYUNSAT FATTY ACIDS 1 GM CAP 2 GM PO ×2 (10:05→17:24)
[2021-07-15] MEDS: FUROSEMIDE INJ 40 MG/4 ML VIAL 20 MG IV PUSH ×2 (10:05→20:01)
--- NOTE | 2021-07-15 12:38 | PM.PNCARD ---
Progress Note: A&P Assessment and Plan (1) Ventricular tachycardia: Code(s): I47.2 - Ventricular tachycardia Status: Acute Assessment and Plan: As above. He has a history of VT ablation on multiple antiarrhythmic therapy. Recurrent longer runs of more sustained VT noted on telemetry terminated with antitachycardia pacing. Continue mexiletine, carvedilol and amiodarone. Considered up titration of amiodarone, however, after further discussion patient reports significant side effects with higher doses of amiodarone prompting reduction. Therefore will increase carvedilol to 6.25 mg twice daily as BP permits. Do not hold for systolic blood pressures in the 90s this is very important for rhythm control. Magnesium and potassium stable this morning. Keep replete to 2.0 and 4.0 respectively. -give additional potassium chloride 40 mEq daily for potassium 3.7 recurrent VT. Check magnesium level daily. Check today. Recommendations to follow. -increase carvedilol to 12.5 mg twice daily as tolerated. Discussed possibly changing to metoprolol, however, he recalls some recommendation to the past changing to carvedilol by electrophysiology predicated corroborate this at present. Attempted to contact Dr. Trinidad his EP at [facility], waiting for response. Limited options. May have ind Amiodarone temporarily although he did not tolerate higher doses well in the past. If he has recurrence will give additional 400mg daily Amiodarone for next 2-3 days. Patient remains quite ill with a guarded prognosis. We discussed these issues at length. He is well aware of his medical issues and potential complications which may be life-threatening. (2) Acute respiratory failure with hypoxia and hypercapnia: Code(s): J96.01 - Acute respiratory failure with hypoxia; J96.02 - Acute respiratory failure with hypercapnia Status: Acute Assessment and Plan: COVID PCR negative. As above, continue O2 supplementation, BiPAP. Appreciate pulmonology involvement. He remains on IV antibiotics and was given steroids at presentation. -anemia complicating his picture. Monitor volume status with transfusion. -although unlikely clinically to be a significant issue with amiodarone, ceftriaxone as alternative to levofloxacin made given his advanced age and risk for QT prolongation particularly given recurrent runs of ventricular tachycardia. (3) Congestive heart failure: Qualifiers: Heart failure type: unspecified Heart failure chronicity: chronic Qualified Code(s): I50.9 - Heart failure, unspecified Code(s): I50.9 - Heart failure, unspecified Status: Acute Assessment and Plan: EF 50-55% by most recent echocardiogram. BNP greater than 6000 at admission. Complicated picture with evidence of pulmonary edema on imaging without peripheral edema. Abdomen mildly distended but is soft. Continue IV Lasix. Monitor renal function, electrolytes closely. Monitor blood pressure. Accurate input and output, daily weight, less than 2 g daily sodium intake. Lasix 20 mg IV q.12 hours for now. Will observe response to therapy. Continue BiPAP support wean as tolerated. No suggestion anginal symptoms. . (4) Myelodysplastic syndrome: Code(s): D46.9 - Myelodysplastic syndrome, unspecified Status: Acute Assessment and Plan: Follow H&H stable post transfusion, slow decline in platelet count. Monitor for bleeding.. Appreciate hematology involvement. H&H declining certainly confounding his symptom complex. Monitor electrolytes and renal function closely. (5) Atrial fibrillation: Qualifiers: Atrial fibrillation type: unspecified Qualified Code(s): I48.91 - Unspecified atrial fibrillation Code(s): I48.91 - Unspecified atrial fibrillation Status: Chronic Assessment and Plan: Continue systemic anticoagulation. Follow H&H. Continue carvedilol. (6) CAD (coronary artery disease): Code(s)
[2021-07-15 13:01] LABS: Magnesium 2.2 mg/dL (1.6-2.3)
[2021-07-15] MEDS: POTASSIUM CHLORIDE 20 MEQ PACKET (FOR LIQUID) 40 MEQ PO (13:09)
[2021-07-15 13:17] LABS: Glucose Point of Care 167 mg/dl (65-105)
--- NOTE | 2021-07-15 15:51 | PM.IMPN ---
Progress Note: A&P Assessment and Plan (1) CHF exacerbation: Qualifiers: Heart failure type: combined systolic and diastolic Qualified Code(s): I50.43 - Acute on chronic combined systolic (congestive) and diastolic (congestive) heart failure Code(s): I50.9 - Heart failure, unspecified Status: Acute Assessment and Plan: Continue to cautious diuresis -Continue Lasix 20 mg IV BID -Cardiology rounding (2) Ventricular tachycardia: Code(s): I47.2 - Ventricular tachycardia Status: Acute Assessment and Plan: -Hx of VT ablation on multiple antiarrhythmic therarpy -recurrent longer runs of more sustained VT noted on telemetry terminated with antitachycardia pacing. - Pt usually sees electrophysiology in [facility] -Appreciate any further recommendations from cardiology watch mg and potassium levels (3) Myelodysplastic syndrome: Code(s): D46.9 - Myelodysplastic syndrome, unspecified Status: Acute Assessment and Plan: -Hemoglobin and hematocrit are stable on review of previous labs. Sp blood Pt hbs is 8.1 today (4) Type 2 diabetes mellitus: Code(s): E11.9 - Type 2 diabetes mellitus without complications Status: Acute Assessment and Plan: Initiate sliding scale insulin, Accu-Cheks, and hypoglycemic protocol. (5) Chronic respiratory failure with hypoxia: Code(s): J96.11 - Chronic respiratory failure with hypoxia Status: Chronic Assessment and Plan: -Home oxygen is 4L [place] chronically -Pt was bipap now on oxygen only being treated for bacterial pneumonia with iv abx covid is negative (6) Community acquired pneumonia: Qualifiers: Laterality: left Lung location: upper lobe of lung Qualified Code(s): J18.9 - Pneumonia, unspecified organism Code(s): J18.9 - Pneumonia, unspecified organism Status: Acute Assessment and Plan: -see above chronic resp failure pt is on 4 liters usually -pulm following, appreciate recommendations (7) Chronic kidney disease, stage 3: Code(s): N18.30 - Chronic kidney disease, stage 3 unspecified Status: Acute Assessment and Plan: Creatinine is stable Continue to monitor BMP (8) Obstructive sleep apnea: Code(s): G47.33 - Obstructive sleep apnea (adult) (pediatric) Status: Chronic Assessment and Plan: CPAP will be provided for the patient to use while hospitalized. (9) Atrial fibrillation: Qualifiers: Atrial fibrillation type: paroxysmal Qualified Code(s): I48.0 - Paroxysmal atrial fibrillation Code(s): I48.91 - Unspecified atrial fibrillation Status: Chronic Assessment and Plan: Continue amiodarone and Eliquis for stroke prophylaxis. Subjective Date/time seen: 07/15/21 15:51 Interval history: 80-year-old male with coronary artery disease, ischemic cardiomyopathy with improved ejection fraction, atrial fibrillation, type 2 diabetes mellitus, chronic respiratory failure on 4 L nasal cannula, ventricular tachycardia status post ICD insertion, and myelodysplastic syndrome admitted to the hospital for CHF exacerbation. Pt had runs of VT yesterday seen by meat pickler. Pt has ICD in situ. Review of Systems Review of Systems: All systems reviewed & are unremarkable except as noted in HPI and below Exam Narrative: General: elderly man tired chronically ill Respiratory: Lung sounds are diminished at the bases BL. Cardiovascular: RRR, +systolic murmur. PM/ICD insitu Gastrointestinal: Soft, non tender, non distended Skin: Warm and dry. Extremities: No cyanosis, clubbing, or edema. Radial and pedal pulses intact. Neurological: Alert. Cranial nerves 2-12 are grossly intact. No gross focal deficits to casual conversation. Psychiatric: Pleasant and cooperative with normal mood and affect. Judgment and insight intact. Objecti
[2021-07-15 16:59] LABS: Glucose Point of Care 206 mg/dl (65-105)
[2021-07-15] MEDS: INSULIN ASPART (*BKC) 100 UNITS/ML SUB-Q (17:21)
[2021-07-15] MEDS: carvediloL 12.5 MG TABLET PO (20:01)
[2021-07-15] MEDS: AMITRIPTYLINE HCL 25 MG TABLET PO (20:02)
[2021-07-15 20:29] LABS: Glucose Point of Care 196 mg/dl (65-105)
[2021-07-15] MEDS: METOCLOPRAMIDE HCL INJ 10 MG/2 ML VIAL 5 MG IV PUSH (23:34)
[2021-07-16] VITALS (22 sets, daily range): BP systolic 92–121; BP diastolic 51–62; PULSE 89–96; RESP 20–28; TEMP 36.1–37.2; O2SAT 91–100
[2021-07-16 08:12] LABS: Anion Gap 4 mmol/L (8-16); Blood Urea Nitrogen 22 mg/dL (9-20); Calcium 8.4 mg/dL (8.4-10.2); Carbon Dioxide 34 mmol/L (22-30); Chloride 99 mmol/L (98-107); Estimated CRCL calculation 49 ml/min; Estimated Glomerular Filt Rate 58; Glucose 116 mg/dL (65-110); Magnesium 2.2 mg/dL (1.6-2.3); Potassium 3.8 mmol/L (3.4-5.0); Sodium 137 mmol/L (137-145)
[2021-07-16 08:36] LABS: Glucose Point of Care 122 mg/dl (65-105)
[2021-07-16 08:37] LABS: Basophils Percent Auto 0.4 % (0.2-1.2); Eosinophils Percent Auto 0.8 % (0-4.4); Hematocrit 25.1 % (42.0-52.0); Hemoglobin 7.9 g/dL (14.0-18.0); Immature Granulocyte Absolute 0.02 K/mm3 (0.00-0.031); Immature Granulocyte Percent A 0.8 % (0-0.5); Immature Platelet Fraction Pct 9.5 % (0.9-11.2); Lymphocytes Absolute Auto 0.78 K/mm3 (0.9-3.2); Lymphocytes Percent Auto 33.1 % (18.3-44.2); Mean Corpuscular HGB Conc 31.5 g/dl (32-36); Mean Corpuscular Hemoglobin 34.6 pg (26-34); Mean Corpuscular Volume 110.1 fl (80-100); Monocytes Absolute Auto 0.2 K/mm3 (0.1-0.6); Monocytes Percent Auto 7.2 % (2.6-8.5); Neutrophils Absolute Auto 1.4 K/mm3 (1.3-6.7); Neutrophils Percent Auto 57.7 % (45.5-73.1); Nucleated Red Blood Cells Perc 0.8 % (0.0-0.2); Platelet Count Result 85 k/mm3 (150-375); Red Blood Count 2.28 M/mm3 (4.6-6.20); Red Cell Distribution Width 22.6 % (11.5-14.5); White Blood Count 2.4 K/mm3 (4.5-10.0)
[2021-07-16 08:47] LABS: Alanine Aminotransferase 15 U/L (4-50); Albumin Level 2.9 g/dL (3.5-5.1); Alkaline Phosphatase 45 U/L (38-126); Anion Gap 3 mmol/L (8-16); Aspartate Amino Transferase 19 U/L (17-59); Bilirubin,Total 0.6 mg/dL (0.2-1.3); Blood Urea Nitrogen 22 mg/dL (9-20); Calcium 8.4 mg/dL (8.4-10.2); Carbon Dioxide 33 mmol/L (22-30); Chloride 99 mmol/L (98-107); Estimated CRCL calculation 49 ml/min; Estimated Glomerular Filt Rate 58; Glucose 117 mg/dL (65-110); Potassium 3.8 mmol/L (3.4-5.0); Sodium 135 mmol/L (137-145)
[2021-07-16] MEDS: PREGABALIN (*CRX) 50 MG CAPSULE 100 MG PO ×3 (09:15→17:03)
[2021-07-16] MEDS: OMEGA 3 POLYUNSAT FATTY ACIDS 1 GM CAP 2 GM PO ×2 (09:15→17:03)
[2021-07-16] MEDS: TAMSULOSIN HCL 0.4 MG CAPSULE PO (09:15)
[2021-07-16] MEDS: ROFLUMILAST 500 MCG TABLET PO (09:15)
[2021-07-16] MEDS: ROSUVASTATIN 5 MG TABLET PO (09:15)
[2021-07-16] MEDS: MEXILETINE HCL 150 MG CAPSULE PO ×2 (09:15→17:03)
[2021-07-16] MEDS: CYANOCOBALAMIN 500 MCG TABLET 1500 MCG PO ×2 (09:16→17:03)
[2021-07-16] MEDS: AMIODARONE HCL 200 MG TABLET 400 MG PO (09:16)
[2021-07-16] MEDS: FINASTERIDE 5 MG TABLET PO (09:16)
[2021-07-16] MEDS: APIXABAN 5 MG TABLET PO ×2 (09:16→20:38)
[2021-07-16] MEDS: FENOFIBRATE NANOCRYSTALLIZED 145 MG TABLET PO (09:16)
[2021-07-16] MEDS: FERROUS SULFATE 324 MG TABLET PO ×2 (09:17→17:04)
[2021-07-16] MEDS: CHOLECALCIFEROL 1,000 UNITS TABLET 2000 UNITS PO (09:17)
[2021-07-16] MEDS: FUROSEMIDE INJ 40 MG/4 ML VIAL 20 MG IV PUSH ×2 (09:17→20:37)
[2021-07-16] MEDS: carvediloL 12.5 MG TABLET PO ×2 (09:17→20:37)
[2021-07-16] MEDS: CLOPIDOGREL BISULFATE 75 MG TABLET PO (09:18)
[2021-07-16] MEDS: FLUTICASONE/UMECLIDIN/VILANTER 100-62.5-25 MCG ELLIPTA 1 PUFF INHALATION (10:04)
--- NOTE | 2021-07-16 10:33 | PM.PNCARD ---
Progress Note: A&P Assessment and Plan (1) Ventricular tachycardia: Code(s): I47.2 - Ventricular tachycardia Status: Acute Assessment and Plan: He has a history of VT ablation on multiple antiarrhythmic therapy with mexiletine, carvedilol and amiodarone.. Recurrent longer runs of more sustained VT noted on telemetry terminated with antitachycardia pacing. Dr. Eagle discussed with Dr. Briggs (EP at [facility]). Carvedilol increased to 12.5 mg b.i.d. on 07/15/2021. Do not hold for systolic blood pressures in the 90s this is very important for rhythm control. Amiodarone increased from 200 mg daily (home dose per patient/) to 400 mg b.i.d., at least for t 2-3 days, since he did not tolerate well in the past due to ataxia. Daily Magnesium and potassium; will add potassium 20 mEq daily. Replete as needed to 2.0 and 4.0 respectively. Consider discontinuing amitriptyline also due to potential to aggravate VT Ventricular tachycardia seems improved so far today. (2) Congestive heart failure: Qualifiers: Heart failure type: unspecified Heart failure chronicity: chronic Qualified Code(s): I50.9 - Heart failure, unspecified Code(s): I50.9 - Heart failure, unspecified Status: Acute Assessment and Plan: EF 50-55% by most recent echocardiogram. BNP greater than 6000 at admission. Complicated picture with evidence of pulmonary edema on imaging without peripheral edema. Diuresing. Improving clinically. Continue IV Lasix 20 mg IVP BID Renal fxn stable Monitor renal function and electrolytes; will order daily BMP. Monitor blood pressure. Accurate input and output, daily weight, less than 2 g daily sodium intake. (3) Acute respiratory failure with hypoxia and hypercapnia: Code(s): J96.01 - Acute respiratory failure with hypoxia; J96.02 - Acute respiratory failure with hypercapnia Status: Acute Assessment and Plan: COVID PCR negative Continue O2 supplementation, BiPAP. Appreciate pulmonology involvement. He remains on IV antibiotics and was given steroids at presentation. Levofloxacin changed to ceftriaxone given his advanced age and risk for QT prolongation particularly given recurrent runs of ventricular tachycardia. (4) Myelodysplastic syndrome: Code(s): D46.9 - Myelodysplastic syndrome, unspecified Status: Acute Assessment and Plan: Transfused. Follow H&H stable post transfusion, slow decline in platelet count. Monitor for bleeding.. Appreciate hematology involvement. H&H declining certainly confounding his symptom complex. (5) Atrial fibrillation: Qualifiers: Atrial fibrillation type: unspecified Qualified Code(s): I48.91 - Unspecified atrial fibrillation Code(s): I48.91 - Unspecified atrial fibrillation Status: Chronic Assessment and Plan: History of paroxysmal atrial fibrillation, currently AV pacing. Continue systemic anticoagulation. Follow H&H. Continue carvedilol. (6) CAD (coronary artery disease): Code(s): I25.10 - Atherosclerotic heart disease of samish coronary artery without angina pectoris Status: Chronic Assessment and Plan: Remains on clopidogrel, carvedilol, rosuvastatin. No clear anginal symptoms. (7) ICD (implantable cardioverter-defibrillator) in place: Code(s): Z95.810 - Presence of automatic (implantable) cardiac defibrillator Status: Acute Assessment and Plan: History of ICD implant, which is reassuring in view of his nonsustained ventricular tachycardia. Occasionally requiring anti tachy pacing but has not required a recent defibrillation. Continue Telemetry given runs of ventricular tachycardia. Additional Plan Patient remains quite ill with a guarded prognosis. He is well aware of his medical issues an
--- NOTE | 2021-07-16 11:05 | PCOTNOTE ---
Patient declined ADL's with OT this am stating My will help with that and declined further interventions this date.
[2021-07-16] MEDS: AMIODARONE 150 MG/D5W 100 ML 150 MG/100 ML BAG 600 MG IV CONT (12:57)
[2021-07-16] MEDS: POTASSIUM CHLORIDE 20 MEQ TABLET.ER PO (13:05)
--- NOTE | 2021-07-16 13:06 | PC.NURSE ---
Notified Dr. Parker of patients 5 trinity runsn of [facility] between 11:09 and 12:20. She ordered amio bolus
[2021-07-16 13:12] LABS: Glucose Point of Care 160 mg/dl (65-105)
[2021-07-16] MEDS: AMIODARONE 360 MG/D5W 200 ML 360 MG/200 ML BAG 33.33 MG IV CONT (13:22)
--- NOTE | 2021-07-16 15:35 | PM.IMPN ---
Progress Note: A&P Assessment and Plan (1) CHF exacerbation: Qualifiers: Heart failure type: combined systolic and diastolic Qualified Code(s): I50.43 - Acute on chronic combined systolic (congestive) and diastolic (congestive) heart failure Code(s): I50.9 - Heart failure, unspecified Status: Acute Assessment and Plan: -EF 50-55% by most recent echocardiogram. -BNP greater than 6000 at admission. -Complicated picture with evidence of pulmonary edema on imaging without peripheral edema. -Cautious diuresis -Continue IV Lasix 20 mg IVP BID -renal function stable -continue monitoring blood pressure, electrolytes, and volume status closely -Improving clinically. (2) Ventricular tachycardia: Code(s): I47.2 - Ventricular tachycardia Status: Acute Assessment and Plan: -He has a history of VT ablation on multiple antiarrhythmic therapy with mexiletine, carvedilol and amiodarone. -Recurrent longer runs of more sustained VT noted on telemetry terminated with antitachycardia pacing. -Dr. Eagle discussed with Dr. Briggs (EP at [facility]). -Carvedilol increased to 12.5 mg b.i.d. on 07/15/2021. Do not hold for systolic blood pressures in the 90s this is very important for rhythm control. -Amiodarone increased from 200 mg daily (home dose per patient/) to 400 mg b.i.d., at least for t 2-3 days, since he did not tolerate well in the past due to ataxia. -Daily Magnesium and potassium; will add potassium 20 mEq daily. Replete as needed to 2.0 and 4.0 respectively. -Consider discontinuing amitriptyline also due to potential to aggravate VT -Cardiology following, appreciate any additional adjustments or recommendations (3) Myelodysplastic syndrome: Code(s): D46.9 - Myelodysplastic syndrome, unspecified Status: Acute Assessment and Plan: -Transfused 07/14/21 -Follow H&H stable post transfusion, slow decline in platelet count. -Monitor for bleeding. -Appreciate hematology involvement. Pt sees Dr. Fermin outpatient. -H&H declining certainly confounding his symptom complex. -H&H today 7.9/25.1 (4) Type 2 diabetes mellitus: Code(s): E11.9 - Type 2 diabetes mellitus without complications Status: Acute Assessment and Plan: - Initiate sliding scale insulin, Accu-Cheks, and hypoglycemic protocol. (5) Chronic respiratory failure with hypoxia: Code(s): J96.11 - Chronic respiratory failure with hypoxia Status: Chronic Assessment and Plan: -Home oxygen is 4L NC chronically -COVID negative -Continue O2 supplementation, BiPAP, CPAP at night. -Appreciate pulmonology involvement. He remains on IV antibiotics and was given steroids at presentation. Levaquin switched to ceftriaxone given his advanced age and risk for QT prolongation particularly given recurrent runs of ventricular tachycardia. (6) Community acquired pneumonia: Qualifiers: Laterality: left Lung location: upper lobe of lung Qualified Code(s): J18.9 - Pneumonia, unspecified organism Code(s): J18.9 - Pneumonia, unspecified organism Status: Acute Assessment and Plan: -see above chronic resp failure pt is on 4 liters chronically -on ceftriaxone -pulm following, appreciate recommendations (7) Chronic kidney disease, stage 3: Code(s): N18.30 - Chronic kidney disease, stage 3 unspecified Status: Acute Assessment and Plan: -Creatinine is stable -Continue to monitor BMP (8) Obstructive sleep apnea: Code(s): G47.33 - Obstructive sleep apnea (adult) (pediatric) Status: Chronic Assessment and Plan: -CPAP will be provided for the patient to use while hospitalized. (9) Atrial fibrillation: Qualifiers: Atrial fibrillation type: paroxysmal Qualified Code(s): I48.0 - Paroxysmal atrial fibrillation Code(s): I48.91 - Unspe
[2021-07-16 16:44] LABS: Glucose Point of Care 172 mg/dl (65-105)
--- NOTE | 2021-07-16 18:06 | PM.PNPUL ---
Progress Note: A&P Assessment and Plan (1) Acute and chronic respiratory failure ([id number]): Qualifiers: Respiratory failure complication: unspecified whether with hypoxia or hypercapnia Qualified Code(s): J96.20 - Acute and chronic respiratory failure, unspecified whether with hypoxia or hypercapnia Code(s): J96.20 - Acute and chronic respiratory failure, unspecified whether with hypoxia or hypercapnia Status: Acute Assessment and Plan: 80-year-old man presented with hypoxic hypercapnic respiratory failure related to pulmonary edema and bilateral pleural effusions. The patient has received treatment for congestive heart failure with significant improvement of his respiratory status. On last chest x-ray there is significant clearing of pulmonary congestion bilaterally, and also of the right pleural effusion. Left pleural effusion still present on today's chest x-ray. Patient using home ventilator at night and p.r.n. during the day. his gas exchange has significantly improved as judged by the O2 saturation. He had no shortness of breath while he used Supplemental oxygen via nasal cannula this a.m.. Plan is as follows continue with current treatment, continue with ceftriaxone for two more days. (2) Obstructive sleep apnea: Code(s): G47.33 - Obstructive sleep apnea (adult) (pediatric) Status: Acute (3) Congestive heart failure: Qualifiers: Heart failure type: unspecified Heart failure chronicity: chronic Qualified Code(s): I50.9 - Heart failure, unspecified Code(s): I50.9 - Heart failure, unspecified Status: Acute (4) Chronic anemia: Code(s): D64.9 - Anemia, unspecified Status: Acute (5) Myelodysplastic syndrome: Code(s): D46.9 - Myelodysplastic syndrome, unspecified Status: Acute Subjective Date/time seen: 07/16/21 18:06 Patient has no new respiratory complaints. Using own home ventilator at night and prn duting the day. Mild cough with light yellow phlegm, no wheezing, no orthopnea, overall dyspnea significantly improved. Followed by cardiology for runs of VT, on new antiarrhythmic medications. Last CXR 3 days ago showed clearing of pulmonary edema, still small left pleural effusion. Review of Systems Review of Systems: All systems reviewed & are unremarkable except as noted in HPI and below Exam Narrative: GENERAL APPEARANCE: Well developed, well nourished, alert and cooperative, and appears to be in In mild respiratory distress while breathing oxygen via nasal cannula. SKIN: Inspection of the skin reveals old echymotic rash HEENT: Sclerae anicteric and conjunctivae pink and moist. Extraocular movements were intact and pupils were equal, round, and reactive to light. The oral mucosa, hard and soft palate, tongue and posterior pharynx were normal. NECK: Supple. There was no thyroid enlargement, and no tenderness, or masses were felt. CHEST: Normal AP diameter and normal contour without any kyphoscoliosis. LUNGS: crackles at bases posteriorly and decreased breath sounds at left base. No wheezing CARDIAC: There was a regular rate and rhythm without any murmurs, gallops, rubs. ABDOMEN: Soft and nontender with normal bowel sounds. There was no organomegaly. LYMPH NODES: No lymphadenopathy was appreciated in the neck, axillae or groin. EXTREMITIES: chronic stasis dermatitis changes bilaterally, no edema NEUROLOGIC: Alert and oriented x 3. Normal affect. Objective Data Vital Signs Vital Signs: Vital Signs - 24 hr 07/15/21 20:00 07/15/21 20:01 07/15/21 22:00 Temperature 36.4 C Pulse Rate 90 89 89 Respiratory Rate 18 Blood Pressure 103/55 L Pulse Oximetry 96 07/16/21 00:00 07/16/21 02:00 07/16/21 03:32 Temperature 36.1 C L Pulse Rate 89 90 Respiratory Rate 20 Blood Pressure 92/55 L Pulse Oximetry 91 92 07/16/21 04:00 07/16/21 05:46 07/16/21 08:00 Temperature 36.1 C L 36.4 C Pulse Rate
[2021-07-16] MEDS: AMIODARONE 360 MG/D5W 200 ML 360 MG/200 ML BAG 16.67 MG IV CONT (18:46)
[2021-07-16 20:50] LABS: Glucose Point of Care 227 mg/dl (65-105)
[2021-07-17] VITALS (14 sets, daily range): BP systolic 92–104; BP diastolic 53–61; PULSE 89–126; RESP 16–20; TEMP 36.2–36.7; O2SAT 97–100
[2021-07-17 00:22] LABS: Osmolality, Urine 526 mOsm/kg (50-1200)
[2021-07-17 05:43] LABS: Basophils Percent Auto 0.7 % (0.2-1.2); Hemoglobin 8.1 g/dL (14.0-18.0); Immature Granulocyte Absolute 0.02 K/mm3 (0.00-0.031); Immature Granulocyte Percent A 0.7 % (0-0.5); Immature Platelet Fraction Pct 10.2 % (0.9-11.2); Lymphocytes Absolute Auto 1.28 K/mm3 (0.9-3.2); Lymphocytes Percent Auto 42.7 % (18.3-44.2); Mean Corpuscular HGB Conc 31.2 g/dl (32-36); Mean Corpuscular Hemoglobin 34.5 pg (26-34); Mean Corpuscular Volume 110.6 fl (80-100); Mean Platelet Volume 10.9 fl (7.4-10.4); Monocytes Absolute Auto 0.2 K/mm3 (0.1-0.6); Neutrophils Absolute Auto 1.4 K/mm3 (1.3-6.7); Neutrophils Percent Auto 46.9 % (45.5-73.1); Platelet Count Result 86 k/mm3 (150-375); Red Blood Count 2.35 M/mm3 (4.6-6.20); Red Cell Distribution Width 22.3 % (11.5-14.5)
[2021-07-17 05:51] LABS: Anion Gap 3 mmol/L (8-16); Blood Urea Nitrogen 20 mg/dL (9-20); Calcium 8.7 mg/dL (8.4-10.2); Carbon Dioxide 34 mmol/L (22-30); Chloride 95 mmol/L (98-107); Estimated CRCL calculation 53 ml/min; Estimated Glomerular Filt Rate > 60; Glucose 110 mg/dL (65-110); Magnesium 2.2 mg/dL (1.6-2.3); Sodium 132 mmol/L (137-145)
[2021-07-17] MEDS: AMIODARONE 360 MG/D5W 200 ML 360 MG/200 ML BAG 16.67 MG IV CONT ×2 (05:58→16:31)
[2021-07-17 08:36] LABS: Glucose Point of Care 117 mg/dl (65-105)
[2021-07-17] MEDS: carvediloL 12.5 MG TABLET PO (09:24)
[2021-07-17] MEDS: TAMSULOSIN HCL 0.4 MG CAPSULE PO (09:24)
[2021-07-17] MEDS: PREGABALIN (*CRX) 50 MG CAPSULE 100 MG PO ×2 (09:24→12:58)
[2021-07-17] MEDS: OMEGA 3 POLYUNSAT FATTY ACIDS 1 GM CAP 2 GM PO (09:24)
[2021-07-17] MEDS: ROSUVASTATIN 5 MG TABLET PO (09:24)
[2021-07-17] MEDS: CLOPIDOGREL BISULFATE 75 MG TABLET PO (09:24)
[2021-07-17] MEDS: MEXILETINE HCL 150 MG CAPSULE PO (09:24)
[2021-07-17] MEDS: FENOFIBRATE NANOCRYSTALLIZED 145 MG TABLET PO (09:24)
[2021-07-17] MEDS: CHOLECALCIFEROL 1,000 UNITS TABLET 2000 UNITS PO (09:24)
[2021-07-17] MEDS: FERROUS SULFATE 324 MG TABLET PO (09:24)
[2021-07-17] MEDS: APIXABAN 5 MG TABLET PO (09:24)
[2021-07-17] MEDS: FINASTERIDE 5 MG TABLET PO (09:25)
[2021-07-17] MEDS: CYANOCOBALAMIN 500 MCG TABLET 1500 MCG PO (09:25)
[2021-07-17] MEDS: ROFLUMILAST 500 MCG TABLET PO (09:25)
[2021-07-17] MEDS: FUROSEMIDE INJ 40 MG/4 ML VIAL 20 MG IV PUSH (09:25)
[2021-07-17] MEDS: FLUTICASONE/UMECLIDIN/VILANTER 100-62.5-25 MCG ELLIPTA 1 PUFF INHALATION (09:41)
--- NOTE | 2021-07-17 10:11 | PM.IMPN ---
Progress Note: A&P Assessment and Plan (1) CHF exacerbation: Qualifiers: Heart failure type: combined systolic and diastolic Qualified Code(s): I50.43 - Acute on chronic combined systolic (congestive) and diastolic (congestive) heart failure Code(s): I50.9 - Heart failure, unspecified Status: Acute Assessment and Plan: -EF 50-55% by most recent echocardiogram. -BNP greater than 6000 at admission. -Complicated picture with evidence of pulmonary edema on imaging without peripheral edema. -Continue cautious diuresis -Continue IV Lasix 20 mg IVP BID -renal function stable -continue monitoring blood pressure, electrolytes, and volume status closely -Improving clinically. However patient not tolerating uptitration of amiodarone due to ataxia. -currently arranging used transfer to de so a BiPAP this to Dr. Briggs service. (2) Ventricular tachycardia: Code(s): I47.2 - Ventricular tachycardia Status: Acute Assessment and Plan: -He has a history of VT ablation on multiple antiarrhythmic therapy with mexiletine, carvedilol and amiodarone. -Recurrent longer runs of more sustained VT noted on telemetry terminated with antitachycardia pacing. -Dr. Eagle discussed with Dr. Briggs (EP at [facility]). -Carvedilol increased to 12.5 mg b.i.d. on 07/15/2021. Do not hold for systolic blood pressures in the 90s this is very important for rhythm control. -Amiodarone increased from 200 mg daily (home dose per patient/) to 400 mg b.i.d., at least for t 2-3 days, since he did not tolerate well in the past due to ataxia. -Daily Magnesium and potassium; will add potassium 20 mEq daily. Replete as needed to 2.0 and 4.0 respectively. 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 (3) Myelodysplastic syndrome: Code(s): D46.9 - Myelodysplastic syndrome, unspecified Status: Acute Assessment and Plan: -Transfused 07/14/21 -Follow H&H stable post transfusion, slow decline in platelet count. -Monitor for bleeding. -Appreciate hematology involvement. Pt sees Dr. Fermin outpatient. -H&H declining certainly confounding his symptom complex. -H&H today 8.08/24. (4) Type 2 diabetes mellitus: Code(s): E11.9 - Type 2 diabetes mellitus without complications Status: Acute Assessment and Plan: - Initiate sliding scale insulin, Accu-Cheks, and hypoglycemic protocol. -fasting blood glucose 110. Accu-Chek in the 170-189 range. (5) Chronic respiratory failure with hypoxia: Code(s): J96.11 - Chronic respiratory failure with hypoxia Status: Chronic Assessment and Plan: -Home oxygen is 4L NC chronically -COVID negative -Continue O2 supplementation, BiPAP, CPAP at night. -Appreciate pulmonology involvement. He remains on IV antibiotics and was given steroids at presentation. Levaquin switched to ceftriaxone given his advanced age and risk for QT prolongation particularly given recurrent runs of ventricular tachycardia. (6) Community acquired pneumonia: Qualifiers: Laterality: left Lung location: upper lobe of lung Qualified Code(s): J18.9 - Pneumonia, unspecified organism Code(s): J18.9 - Pneumonia, unspecified organism Status: Acute (7) Chronic kidney disease, stage 3: Code(s): N18.30 - Chronic kidney disease, stage 3 unspecified Status: Acute Assessment and Plan: -Creatinine is stable -Continue to monitor BMP (8) Obstructive sleep apnea: Code(s): G47.33 - Obstructive sleep apnea (adult) (pediatric) Status: Chronic Assessment and Plan: -CPAP will be provided for the patient to use while hospitalized. (9) Atrial fibrillation:
--- NOTE | 2021-07-17 10:35 | PCOTNOTE ---
Patient declined treatment this date stating I am trying to get out of here reports waiting for call back from specialist regarding hospital transfer.
[2021-07-17 10:38] LABS: Iron 85 ug/dL (49-181)
[2021-07-17 10:46] LABS: Transferrin 264 mg/dL (206-381)
[2021-07-17 10:47] LABS: Percent Iron Saturation 23 % (20-50)
--- NOTE | 2021-07-17 10:59 | PM.PNCARD ---
Progress Note: A&P Assessment and Plan (1) Ventricular tachycardia: Code(s): I47.2 - Ventricular tachycardia Status: Acute Assessment and Plan: He has a history of VT ablation on multiple antiarrhythmic therapy with mexiletine, carvedilol and amiodarone. Recurrent longer runs of nonsustained VT noted on telemetry sometimes needing termination with antitachycardia pacing. Dr. Eagle discussed with Dr. Briggs (EP at [facility]). Carvedilol increased to 12.5 mg b.i.d. on 07/15/2021. Do not hold for systolic blood pressures in the 90s this is very important for rhythm control. Amiodarone increased from 200 mg daily (home dose per patient/) to 400 mg b.i.d. starting 07/16/2021, at least for 2-3 days, since he did not tolerate well in the past due to ataxia. Daily Magnesium and potassium; will add potassium 20 mEq daily. Replete as needed to 2.0 and 4.0 respectively. Discontinued amitriptyline also due to potential to aggravate VT Amiodarone changed to IV 07/16/2021 when the patient had multiple runs of V-tach and sensation of presyncope. This seemed to help through the afternoon although he has had 9 runs of nonsustained V-tach since midnight of 15-21 beats. Yesterday I spoke to the nurse practitioner with Dr. Briggs, Stephani Carr, who agreed with our approach and would speak with Dr. Trinidad to see if another as attempted V-tach ablation might be helpful. Pt has now developed lower extremity weakness due to the IV amiodarone. Pt desires transfer to Dr. Trinidad at [facility] for further care. I have spoken to nurse practitioner Stephani Carr again, and she will work on arranging transfer. (2) Congestive heart failure: Qualifiers: Heart failure type: unspecified Heart failure chronicity: chronic Qualified Code(s): I50.9 - Heart failure, unspecified Code(s): I50.9 - Heart failure, unspecified Status: Acute Assessment and Plan: EF 50-55% by most recent echocardiogram. BNP greater than 6000 at admission. Complicated picture with evidence of pulmonary edema on imaging without peripheral edema. Diuresing. Improving clinically. Continue IV Lasix 20 mg IVP BID Renal fxn stable Monitor renal function and electrolytes; will order daily BMP. Monitor blood pressure. Accurate input and output, daily weight, less than 2 g daily sodium intake. Check CXR to see how much residual CHFis present. (3) Acute respiratory failure with hypoxia and hypercapnia: Code(s): J96.01 - Acute respiratory failure with hypoxia; J96.02 - Acute respiratory failure with hypercapnia Status: Acute Assessment and Plan: COVID PCR negative Continue O2 supplementation, BiPAP. Appreciate pulmonology involvement. He remains on IV antibiotics and was given steroids at presentation. Levofloxacin changed to ceftriaxone given his advanced age and risk for QT prolongation particularly given recurrent runs of ventricular tachycardia. (4) Myelodysplastic syndrome: Code(s): D46.9 - Myelodysplastic syndrome, unspecified Status: Acute Assessment and Plan: Transfused. Follow H&H stable post transfusion, decline in platelet count but now stable at 86K. (5) Atrial fibrillation: Qualifiers: Atrial fibrillation type: unspecified Qualified Code(s): I48.91 - Unspecified atrial fibrillation Code(s): I48.91 - Unspecified atrial fibrillation Status: Chronic Assessment and Plan: History of paroxysmal atrial fibrillation, currently AV pacing. Continue systemic anticoagulation. Follow H&H. Continue carvedilol. (6) CAD (coronary artery disease): Code(s): I25.10 - Atherosclerotic heart disease of [place] coronary artery without angina pectoris Status: Chronic Assessment and Plan: Remains on clopidogrel, carvedilol, rosuvastatin. No clear anginal symptoms. (7) ICD (implantable cardioverter-defibril
[2021-07-17 12:55] LABS: Glucose Point of Care 189 mg/dl (65-105)
--- NOTE | 2021-07-17 14:38 | PCPTNOTE ---
Pt refused treatment at this time stating that he just feels too tired and weak.
--- NOTE | 2021-07-17 20:00 | PM.TDS ---
Transfer Discharge Sum: Prov Provider Date of admission: 07/12/21 11:16 Primary care physician: Jesus Avelar MD Admitting clinician: Austyn Carolina MD Consults: 07/11/21 17:04 Consult to Physician Routine Comment: Consulting Provider: Tony Miller Reason for consultation: chf/cmp Has provider been notified: Yes Consult to Physician Routine Comment: left vm with dr @1043, spoke to (,) Consulting Provider: Fabio Fermin Reason for consultation: transfuse to Hb > 10 ? Has provider been notified: Yes 07/12/21 Consult to Physician Routine Comment: Consulting Provider: Tony Richardson inventory clerk/MD group to consult: Pulmonology Reason for consultation: Increased O2 Requirements Has provider been notified: No 07/16/21 Wound/ET Consult Routine Reason for Consult:: pressure ulcer DS: Admitting Diagnosis Discharge Date 07/17/21 Admitting Diagnosis (1) CHF exacerbation: (2) Myelodysplastic syndrome: (3) Type 2 diabetes mellitus: (4) Chronic respiratory failure with hypoxia: (5) Chronic kidney disease, stage 3: (6) Obstructive sleep apnea: (7) Atrial fibrillation DS: Discharge Diagnosis Discharge Diagnosis (1) CHF exacerbation: Qualifiers: Heart failure type: combined systolic and diastolic Qualified Code(s): I50.43 - Acute on chronic combined systolic (congestive) and diastolic (congestive) heart failure Code(s): I50.9 - Heart failure, unspecified Status: Acute Assessment and Plan: He will be diuresed with close monitoring of volume status and renal function. Pneumonia seems less likely by history. (2) Ventricular tachycardia: Code(s): I47.2 - Ventricular tachycardia Status: Acute (3) Myelodysplastic syndrome: Code(s): D46.9 - Myelodysplastic syndrome, unspecified Status: Acute Assessment and Plan: Hemoglobin and hematocrit are stable on review of previous labs. I am wondering if we got his hemoglobin up a bit if he would feel better and if his cardiac output when improve though I do not know if he would be able to tolerate the extra volume. (4) Type 2 diabetes mellitus: Code(s): E11.9 - Type 2 diabetes mellitus without complications Status: Acute Assessment and Plan: Random glucose is 137. Initiate sliding scale insulin, Accu-Cheks, and hypoglycemic protocol. (5) Chronic respiratory failure with hypoxia: Code(s): J96.11 - Chronic respiratory failure with hypoxia Status: Chronic Assessment and Plan: He is at his baseline oxygen requirement. (6) Community acquired pneumonia: Qualifiers: Laterality: left Lung location: upper lobe of lung Qualified Code(s): J18.9 - Pneumonia, unspecified organism Code(s): J18.9 - Pneumonia, unspecified organism Status: Acute (7) Chronic kidney disease, stage 3: Code(s): N18.30 - Chronic kidney disease, stage 3 unspecified Status: Acute Assessment and Plan: Creatinine is stable on review of previous labs and will be monitored closely while diuresing. (8) Obstructive sleep apnea: Code(s): G47.33 - Obstructive sleep apnea (adult) (pediatric) Status: Chronic Assessment and Plan: CPAP will be provided for the patient to use while hospitalized. (9) Atrial fibrillation: Qualifiers: Atrial fibrillation type: paroxysmal Qualified Code(s): I48.0 - Paroxysmal atrial fibrillation Code(s): I48.91 - Unspecified atrial fibrillation Status: Chronic Assessment and Plan: Continue amiodarone and Eliquis for stroke prophylaxis. (10) Pressure ulcer: Code(s): L89.90 - Pressure ulcer of unspecified site, unspecified stage Status: Acute Transfer Discharge Sum: Med Medications Active and Home Medications: Home Medications finasteride 5 mg tablet 5 mg PO DAILY 09/10/19 [History Confirmed 08/17/21] fenofibric a
--- NOTE | 2021-08-08 22:53 | PM.DS ---
DS: Admitting Diagnosis Discharge Date 07/17/21 Admitting Diagnosis (1) CHF exacerbation: (2) Myelodysplastic syndrome: (3) Type 2 diabetes mellitus: (4) Chronic respiratory failure with hypoxia: (5) Chronic kidney disease, stage 3: (6) Obstructive sleep apnea: (7) Atrial fibrillation: DS: Discharge Diagnosis Discharge Diagnosis (1) CHF exacerbation: Qualifiers: Heart failure type: combined systolic and diastolic Qualified Code(s): I50.43 - Acute on chronic combined systolic (congestive) and diastolic (congestive) heart failure Code(s): I50.9 - Heart failure, unspecified Status: Acute Assessment and Plan: He will be diuresed with close monitoring of volume status and renal function. Pneumonia seems less likely by history. (2) Ventricular tachycardia: Code(s): I47.2 - Ventricular tachycardia Status: Acute (3) Myelodysplastic syndrome: Code(s): D46.9 - Myelodysplastic syndrome, unspecified Status: Acute Assessment and Plan: Hemoglobin and hematocrit are stable on review of previous labs. I am wondering if we got his hemoglobin up a bit if he would feel better and if his cardiac output when improve though I do not know if he would be able to tolerate the extra volume. (4) Type 2 diabetes mellitus: Code(s): E11.9 - Type 2 diabetes mellitus without complications Status: Acute Assessment and Plan: Random glucose is 137. Initiate sliding scale insulin, Accu-Cheks, and hypoglycemic protocol. (5) Chronic respiratory failure with hypoxia: Code(s): J96.11 - Chronic respiratory failure with hypoxia Status: Chronic Assessment and Plan: He is at his baseline oxygen requirement. (6) Community acquired pneumonia: Qualifiers: Laterality: left Lung location: upper lobe of lung Qualified Code(s): J18.9 - Pneumonia, unspecified organism Code(s): J18.9 - Pneumonia, unspecified organism Status: Acute (7) Chronic kidney disease, stage 3: Code(s): N18.30 - Chronic kidney disease, stage 3 unspecified Status: Acute Assessment and Plan: Creatinine is stable on review of previous labs and will be monitored closely while diuresing. (8) Obstructive sleep apnea: Code(s): G47.33 - Obstructive sleep apnea (adult) (pediatric) Status: Chronic Assessment and Plan: CPAP will be provided for the patient to use while hospitalized. (9) Atrial fibrillation: Qualifiers: Atrial fibrillation type: paroxysmal Qualified Code(s): I48.0 - Paroxysmal atrial fibrillation Code(s): I48.91 - Unspecified atrial fibrillation Status: Chronic Assessment and Plan: Continue amiodarone and Eliquis for stroke prophylaxis. (10) Pressure ulcer: Code(s): L89.90 - Pressure ulcer of unspecified site, unspecified stage Status: Acute DS: Summary Hospital Course Reason for hospitalization: Shortness of breath. Hospital Course: Please refer to admission H&P. For course please refer to the discharge diagnosis. Status at Discharge Functional status at discharge: wheelchair bound Overall status at discharge: patient is progressing back to baseline Time Spent with Patient Time attestation: Total time spent providing and/or coordinating discharge services:25 minutes Time spent: Less than 30 minutes Exam Narrative: General: elderly man tired chronically ill temperature 97.2?, pulse rate 89-91, respirations 16, pulse ox 98% with 50% FiO2 and 5 L oxygen , blood pressure 104/61 Respiratory: Lung sounds are diminished at the bases BL. Cardiovascular: irregular highly irregular S1 and S2, +systolic murmur. PM/ICD in left anterior chest Gastrointestinal: Soft, non tender, non distended Skin: Warm and dry. chronic skin changes of the lower legs bilaterally. Extremities: No cyanosis, clubbing, or edema. Radial and pedal pulses intact. Ne
--- NOTE | 2021-08-18 10:16 | PM.IMPN ---
Progress Note: A&P Assessment and Plan (1) CHF exacerbation: Qualifiers: Heart failure type: combined systolic and diastolic Qualified Code(s): I50.43 - Acute on chronic combined systolic (congestive) and diastolic (congestive) heart failure Code(s): I50.9 - Heart failure, unspecified Status: Acute Assessment and Plan: He will be diuresed with close monitoring of volume status and renal function. Pneumonia seems less likely by history. (2) Ventricular tachycardia: Code(s): I47.2 - Ventricular tachycardia Status: Acute (3) Myelodysplastic syndrome: Code(s): D46.9 - Myelodysplastic syndrome, unspecified Status: Acute Assessment and Plan: Hemoglobin and hematocrit are stable on review of previous labs. I am wondering if we got his hemoglobin up a bit if he would feel better and if his cardiac output when improve though I do not know if he would be able to tolerate the extra volume. (4) Type 2 diabetes mellitus: Code(s): E11.9 - Type 2 diabetes mellitus without complications Status: Acute Assessment and Plan: Random glucose is 137. Initiate sliding scale insulin, Accu-Cheks, and hypoglycemic protocol. (5) Chronic respiratory failure with hypoxia: Code(s): J96.11 - Chronic respiratory failure with hypoxia Status: Chronic Assessment and Plan: He is at his baseline oxygen requirement. (6) Community acquired pneumonia: Qualifiers: Laterality: left Lung location: upper lobe of lung Qualified Code(s): J18.9 - Pneumonia, unspecified organism Code(s): J18.9 - Pneumonia, unspecified organism Status: Acute (7) Chronic kidney disease, stage 3: Code(s): N18.30 - Chronic kidney disease, stage 3 unspecified Status: Acute Assessment and Plan: Creatinine is stable on review of previous labs and will be monitored closely while diuresing. (8) Obstructive sleep apnea: Code(s): G47.33 - Obstructive sleep apnea (adult) (pediatric) Status: Chronic Assessment and Plan: CPAP will be provided for the patient to use while hospitalized. (9) Atrial fibrillation: Qualifiers: Atrial fibrillation type: paroxysmal Qualified Code(s): I48.0 - Paroxysmal atrial fibrillation Code(s): I48.91 - Unspecified atrial fibrillation Status: Chronic Assessment and Plan: Continue amiodarone and Eliquis for stroke prophylaxis. (10) Pressure ulcer: Code(s): L89.90 - Pressure ulcer of unspecified site, unspecified stage Status: Acute Review of Systems Review of Systems: All systems reviewed & are unremarkable except as noted in HPI and below Constitutional: Constitutional: Reports as per HPI, Reports no additional constitutional complaints, Denies chills, Reports fatigue, Denies fever(s), Denies headache(s), Reports lethargy and Reports weakness Eyes: Eyes: Reports as per HPI, Reports no additional eye complaints, Denies blurry vision and Denies change in vision ENT: Reports system reviewed and no additional complaints, except as documented, Reports as per HPI, Denies headache(s), Denies epistaxis and Denies sore throat Cardiovascular: Cardiovascular: Reports as per HPI, Reports no additional cardiovascular complaints, Denies chest pain, Denies diaphoresis, Denies pedal edema, Denies leg edema, Reports lightheadedness (presyncope w/ VT), Reports palpitations, Denies dyspnea and Reports dyspnea on exertion Respiratory: Respiratory: Reports as per HPI, Reports no additional respiratory complaints, Reports chest congestion, Reports cough, Denies dyspnea and Reports dyspnea on exertion Gastrointestinal: Gastrointestinal: Reports as per HPI, Reports no additional gastrointestinal complaints, Denies abdominal pain, Denies melena, Reports bloating, Denies hematochezia, Denies diarrhea, Denies nausea and Denies vomiting Genitourinary: Genitourinary:
== END 2021-07-17 16:40 | disposition short-term general hospital (02) | DRG 291 ==
LOC: ANHED 16:49 → ANH3MEDSUR 22:41 → ANHIMU 07-15 13:55 → ANH3MEDSUR 07-19 11:38 → ANHIMU 07-19 11:38
PROVIDERS: Emergency Medicine; Family Medicine; Internal Medicine; Internal Medicine Cardiovascular Disease; Internal Medicine Pulmonary Disease; Physician Assistant; Admitting Provider Internal Medicine; Emergency Provider Emergency Medicine; PCP Internal Medicine; Visit Provider Internal Medicine Cardiovascular Disease
DX: I13.0 Hypertensive heart and chronic kidney disease with heart failure and stage 1 through stage 4 chronic kidney disease, or unspecified chronic kidney disease (principal); I50.43 Acute on chronic combined systolic (congestive) and diastolic (congestive) heart failure; J96.21 Acute and chronic respiratory failure with hypoxia; J96.22 Acute and chronic respiratory failure with hypercapnia; J15.9 Unspecified bacterial pneumonia; J44.0 Chronic obstructive pulmonary disease with (acute) lower respiratory infection; I47.2 Ventricular tachycardia; D63.1 Anemia in chronic kidney disease; E11.22 Type 2 diabetes mellitus with diabetic chronic kidney disease; N18.30 Chronic kidney disease, stage 3 unspecified; D46.9 Myelodysplastic syndrome, unspecified; Z20.822 Contact with and (suspected) exposure to COVID-19; I25.10 Atherosclerotic heart disease of native coronary artery without angina pectoris; I48.0 Paroxysmal atrial fibrillation; I25.5 Ischemic cardiomyopathy; G47.33 Obstructive sleep apnea (adult) (pediatric); E78.5 Hyperlipidemia, unspecified; N40.0 Benign prostatic hyperplasia without lower urinary tract symptoms; E55.9 Vitamin D deficiency, unspecified; L89.159 Pressure ulcer of sacral region, unspecified stage; R53.1 Weakness; T46.2X5A Adverse effect of other antidysrhythmic drugs, initial encounter; Z28.21 Immunization not carried out because of patient refusal; Z79.01 Long term (current) use of anticoagulants; Z79.84 Long term (current) use of oral hypoglycemic drugs; Z79.899 Other long term (current) drug therapy; Z87.891 Personal history of nicotine dependence; Z95.2 Presence of prosthetic heart valve; Z95.5 Presence of coronary angioplasty implant and graft; Z95.810 Presence of automatic (implantable) cardiac defibrillator; Z99.81 Dependence on supplemental oxygen
CPT/HCPCS: 36415; 36430; 36600; 71045; 71046; 71275; 74019; 80048; 80053; 82570; 82728; 82805; 82948; 83540; 83550; 83615; 83735; 83880; 83930; 83935; 84100; 84145; 84300; 84466; 85025; 85027; 85055; 85380; 86140; 86850; 86900; 86901; 86920; 87040; 87804; 93005; 94640; 96374; 96375; 96376; 97162; 97165; 99285; A9270; C9803; G0378; J0282; J0696; J1100; J1815; J1940; J1956; J2765; P9016; Q9967; U0003; U0005

== ENCOUNTER 2021-08-17 13:34 | Inpatient (IN) | payer MEDICARE, SELFPAY ==
[2021-08-17] VITALS (31 sets, daily range): BP systolic 99–109; BP diastolic 59–69; PULSE 70–98; RESP 17–90; TEMP 36.6; O2SAT 86–100
--- NOTE | ~2021-08-17 | XR_ITS ---
XR chest 1V portable DATE: 08/20/2021 09:48 INDICATION: Pulmonary edema. TECHNIQUE: Portable upright AP chest on 08/20/2021 at 0938 hours COMPARISON: 08/17/2021 AP chest FINDINGS: Left sided triple lead pacemaker device is again noted. Heart size appears enlarged. There is pulmonary vascular congestion and redistribution. There are dif fuse bilateral pulmonary infiltrates with some patchy consolidation and particularly in the lower low er lobes. There is however moderate improvement of the bilateral pulmonary infiltrate since 08/17/2021 . Small pleural effusions appear mildly improved. No pneumothorax. IMPRESSION: Moderate improvement of bilateral pulmonary infiltrates since 08/17/2021 Reviewed, dictated and finalized at location A. ORATE ADMINISTRATIVE ASSISTANT IMPRESSION: Moderate improvement of bilateral pulmonary infiltrates since 2021
--- NOTE | ~2021-08-17 | CT_ITS ---
EXAMINATION: CT abdomen pelvis wo con DATE: 08/17/2021 15:02 INDICATION: Abdominal pain TECHNIQUE: Computed tomography (CT) of the abdomen and pelvis was performed without intravenous contr ast. Automated exposure control and iterative reconstruction technique were employed. The dose-length product was 1557.68 mGy-cm. COMPARISON: None FINDINGS: Partially visualized small to moderate-sized bilateral pleural effusions with dependent atelectasis i n the bilateral lower lobes. Groundglass opacities and smooth septal line thickening throughout the v isualized bilateral mid and lower lung zones consistent with mild pulmonary edema. Multiple subcentim eter nodular opacities in the right middle and visualized right upper lobe, unclear with distal compr ession at the time of the prior study at which time there was more severe pulmonary edema in this reg ion. Calcified nodules in the partially collapsed left lower lobe consistent with old granulomatous d isease. Cardiomegaly. Atherosclerotic coronary artery calcific lesions and coronary artery stenting a long the left anterior descending coronary artery. 3-lead cardiac pacemaker/AICD with lead tips at th e right atrial appendage, apex of the right ventricle and in a coronary vein overlying the lateral wa ll of the left ventricle having traversed the coronary sinus. There is some calcification, unclear wh ether mural or pericardial along the inferolateral base of the left ventricle. No pericardial effusio n. Liver, gallbladder, pancreas, spleen, bilateral adrenal glands and left kidney are normal. 4 cm exoph ytic cyst at the lower pole of the right kidney. Mild scattered colonic diverticulosis without adjace nt inflammatory stranding to suggest diverticulitis. Small bowel and appendix are normal. Bladder is normal. Mild prostatomegaly measuring 4.5 x 3.3 cm. No free intraperitoneal gas or fluid. There is ca lcified atherosclerosis of the aorta and many of the other arteries. No pathologically enlarged abdom inal or pelvic lymphadenopathy. Mild to moderate degenerative skeletal changes in the spine, bilatera l hips and sacroiliac joints. Subcutaneous body wall edema along the flanks. Postoperative changes wi th several surgical clips along the central anterior abdominal wall. IMPRESSION: 1. No acute intra-abdominal/pelvic process. 2. Congestive heart failure with bilateral diffuse pulmonary edema and small to moderate bilateral pl eural effusions with compressive atelectasis in the bilateral lower lobes. 3. A few subcentimeter nodules in the right lung most likely infectious/inflammatory in etiology alth ough could not exclude metastatic disease in the appropriate clinical setting. Recommend follow-up ch est CT in a few months following clinical improvement. 4. Cardiomegaly with calcification along the lateral wall of the left ventricle, unclear whether ther e CASE which could be related to prior infarct or pericardial calcification which could be seen with chronic constrictive pericarditis. Reviewed, dictated and finalized at location A. K PREPARATION OPERATOR IMPRESSION: 1. No acute intra-abdominal/pelvic process. 2. Congestive heart failure with bilateral diffuse pulmonary edema and small to moderate bilateral pleural effusions with compressive atelectasis in the bilat eral lower lobes. 3. A few subcentimeter nodules in the right lung most likely infectious/inflamm atory in etiology although could not exclude metastatic disease in the appropri ate clinical setting. Recommend follow-up chest CT in a few months following cl inical improvement. 4. Cardiomegaly with calcification along the lateral wall of the left ventricle , unclear whether there CASE which could be related to prior infarct or pericar dial calcification which could be seen with chronic constrictive
--- NOTE | ~2021-08-17 | US_ITS ---
EXAMINATION: US right upper quadrant EXAM DATE: 08/18/2021 15:26 INDICATION: Nausea. TECHNIQUE: Multiple grayscale and Doppler images of the abdomen right upper quadrant were obtained (b y a technologist who performed the scan) and subsequently reviewed. Correlation is made to CT abdomen pelvis 08/17/2021. FINDINGS: The pancreatic head and body are normal in appearance. The pancreatic tail is not visualized. The l iver has normal echogenicity and contour. There are no focal liver lesions identified. There is no evidence of intrahepatic biliary duct dilation. Portal venous flow was seen in the hepatopedal, nor mal direction and has normal Doppler waveform. No right-sided hydronephrosis. There is a 4 cm cyst. Common bile duct measures 3 mm, which is normal. The gallbladder wall is normal in thickness, with ex pected amount of distention. No sonographic evidence of pericholecystic fluid. Poorly calcified sma ll gallstones. Technologist performing exam reports patient did not demonstrate sonographic David's sign. Please note that this sign is less reliable in patients who have received pain medication. IMPRESSION: Cholelithiasis. Reviewed, dictated and finalized at location B. TRICAL APPRENTICE IMPRESSION: Cholelithiasis.
--- NOTE | ~2021-08-17 | XR_ITS ---
EXAMINATION: XR chest 1V portable EXAM DATE: 08/17/2021 14:00 INDICATION: Cough. TECHNIQUE: Frontal and lateral projections of the chest obtained and reviewed. Comparison is made to prior examination from 07/17/2021. FINDINGS: There is cardiomegaly and pulmonary vascular congestion. Diffuse bilateral edema and/or pn eumonia. Probable small to moderate left pleural effusion. Multi lead pacemaker/AICD device. No pneum othorax. There is aortic arteriosclerosis. There are bony degenerative changes. Compared to previous examination the airspace disease has progressed. IMPRESSION: 1. Diffuse bilateral pneumonia and/or edema. 2. Cardiomegaly. 3. Small to moderate left pleural effusion. Reviewed, dictated and finalized at location G. DRILLER
--- NOTE | ~2021-08-17 | XR_ITS ---
EXAMINATION: XR chest 1V portable EXAM DATE: 08/22/2021 06:03 INDICATION: CHF TECHNIQUE: Portable AP frontal chest x-ray was obtained. Comparison is made to prior examination from 08/20/2021. FINDINGS: Moderate left, small right pleural effusions. Diffuse bilateral edema or pneumonia, mild pr ogression compared to 08/20/2021. There is triple lead pacemaker/AICD device. No pneumothorax. There a re bony degenerative changes. There are no bony erosions identified. IMPRESSION: Findings consistent with CHF exacerbation. Pneumonia not excludable. Reviewed, dictated and finalized at location A. ARMS SPECIALIST IMPRESSION: Findings consistent with CHF exacerbation. Pneumonia not excludable .
--- NOTE | 2021-08-17 13:41 | ECG_ITS ---
Measurements Intervals [place] Rate: 89 P: 2 OK: 167 QRS: 173 QRSD: 168 T: 4 QT: 439 QTc: 536 Interpretive Statements ELECTRONIC ATRIAL PACEMAKER ELECTRONIC VENTRICULAR PACEMAKER BASELINE ARTIFACT- II, III, AVR, AVL, AVF, V1-V6 NO FURTHER INTERPRETATION IS POSSIBLE ATYPICAL ECG Electronically Signed On 08-17-2021 14:09:18 BUS PERSON by Sanya Stewart D.O.
--- NOTE | 2021-08-17 13:45 | ED.GENADULT ---
HPI - General Adult General Chief complaint: Shortness of Breath/Dyspnea Stated complaint: SOB, NAUSEA Source: RN notes reviewed History of Present Illness HPI narrative: Patient presents to ED from home via EMS for shortness of breath. Patient initially called EMS for nausea. When EMS arrived they found the patient on his CPAP machine states has been wearing his CPAP machine for the past 2 days and is normally on 7 L nasal cannula states he has been feeling more short of breath and feels very short of breath and was he is wearing his CPAP. States he does have a history of heart failure was recently at our facility and then transferred to [facility] for 2 weeks secondary to irregular heart rate and his pacemaker not performed properly states he is on Bumex 2 mg twice a day which he has been taking as prescribed and is on Eliquis denies any fevers or chills or chest pain states he has been nauseous and this has been an ongoing issue over the past month. Patient does note a cough Related Data Home Medications Medication Instructions Recorded Confirmed finasteride 5 mg tablet 5 mg PO DAILY 09/10/19 07/11/21 fenofibric acid (choline) 135 mg 135 mg PO DAILY 09/11/19 07/11/21 capsule,delayed release omega3-dha 200 mg-epa 300 mg-othr 2 cap PO BID 09/11/19 07/11/21 om3 100 mg-fish oil 1,000 mg capsule Eliquis 5 mg PO BID 12/18/19 07/11/21 clopidogrel [Plavix] 75 mg PO DAILY #0 12/19/19 07/11/21 cyanocobalamin (vitamin B-12) 1,500 mcg PO BID 12/19/19 07/11/21 [Vitamin B-12] coenzyme Q10 [CoQ-10] 200 mg PO HS 12/21/19 07/11/21 rosuvastatin 5 mg tablet 5 mg PO DAILY 05/07/20 07/11/21 mexiletine 150 mg BYMOUTH BID 09/13/20 07/11/21 amiodarone 200 mg tablet 200 mg PO BID tablet 10/04/20 07/11/21 carvedilol 3.125 mg tablet 3.125 mg PO Q12H 10/04/20 07/11/21 cholecalciferol (vitamin D3) 2,000 mcg PO DAILY 11/22/20 07/11/21 ferrous sulfate [Iron (ferrous 325 mg PO BID 01/24/21 07/11/21 sulfate)] Daliresp 500 mcg PO DAILY 04/10/21 07/11/21 bumetanide 2 mg tablet 2 mg PO BID 04/20/21 07/11/21 potassium chloride 20 mEq 20 meq PO DAILY 04/20/21 07/12/21 tablet,extended release(part/cryst) nitroglycerin 0.3 mg sublingual 0.3 mg SUBLINGUAL PRN PRN tablet 06/02/21 07/11/21 tablet ondansetron 4 mg PO Q6-8H 07/11/21 07/11/21 pregabalin 100 mg PO TID 07/11/21 07/11/21 Allergies Allergy/AdvReac Type Severity Reaction Status Date / Time No Known Allergies Allergy Verified 07/11/21 12:01 Review of Systems Review of Systems: Gen.: Denies fevers or chills ENT: Denies congestion Respiratory: See HPI CV: Denies chest pain or palpitations GI: Denies abdominal pain emesis or diarrhea. Reports nausea Musculoskeletal: Denies back pain or muscle pain Neuro: Denies numbness, tingling, weakness or focal weakness Skin: Denies rash Except as documented, all other systems reviewed and negative [facility] Past Medical History Medical History Atrial fibrillation Benign prostatic hyperplasia Chronic anemia Chronic anticoagulation Chronic hypoxemic respiratory failure Chronic kidney disease, stage 3 Chronic respiratory failure with hypoxia Oxygen at 3 L per nasal cannula. Congestive heart failure Echocardiogram August 2020: EF of 45%, diastolic dysfunction with elevated left heart pressures, mild left atrial enlargement. Coronary artery disease Hyperlipidemia Hypertension Ischemic cardiomyopathy EF of 20-25% on cardiac catheterization June 2020. EF improved to 50 to 55% on echocardiogram Megaloblastic anemia Obstructive sleep apnea Patient uses a trilogy while sleeping. Type 2 diabetes mellitus Hemoglobin A1c was 5.8% on 05/02/2021. Vitamin D deficiency Surgical History Surgical History History of angioplasty History of aortic valve replacement History of cardiac catheterization Right coronary intervention i
[2021-08-17 13:51] LABS: Alveolar/Arterial O2 Gradient 423.8 mmHg; Base Excess ABG 3.6 mEq/l (+/-2.0); Device BIPAP; Fractional Inspired Oxygen 80 %; HCO3 ABG 27.7 mEq/l (22.0-26.0); Modified Allen's Test Pass; Oxygen Content ABG 13.9 %vol (16.0-22.0); Oxyhemoglobin 96.5 % THb (90.0-100.0); PCO2 ABG 40.1 mmHg (35.0-45.0); PO2 ABG 104.5 mmHg (80.0-100.0); PO2 FiO2 Ratio Arterial Blood 1.31 %; Site Drawn LEFT RADIAL; Total Hemoglobin 10.1 g/dL (12.0-18.0); pH ABG 7.457 (7.350-7.450)
[2021-08-17 13:52] LABS: Expiratory Pressure 6 cmH2O; Inspiratory Pressure 12 cmH2O
[2021-08-17 14:06] LABS: Basophils Percent Auto 0.3 % (0.2-1.2); Eosinophils Percent Auto 0.5 % (0-4.4); Hemoglobin 9.3 g/dL (14.0-18.0); Immature Granulocyte Absolute 0.06 K/mm3 (0.00-0.031); Immature Granulocyte Percent A 0.8 % (0-0.5); Lymphocytes Absolute Auto 1.66 K/mm3 (0.9-3.2); Lymphocytes Percent Auto 21.4 % (18.3-44.2); Mean Corpuscular Volume 116.3 fl (80-100); Mean Platelet Volume 11.2 fl (7.4-10.4); Monocytes Absolute Auto 0.5 K/mm3 (0.1-0.6); Neutrophils Absolute Auto 5.4 K/mm3 (1.3-6.7); Nucleated Red Blood Cells Perc 0.5 % (0.0-0.2); Platelet Count Result 197 k/mm3 (150-375); Red Blood Count 2.58 M/mm3 (4.6-6.20); Red Cell Distribution Width 19.8 % (11.5-14.5); White Blood Count 7.8 K/mm3 (4.5-10.0)
[2021-08-17 14:15] LABS: INR 1.5; Prothrombin Time 17.4 Seconds (11.1-14.7)
[2021-08-17 14:16] LABS: Partial Thromboplastin Time 35.8 SECONDS (22.3-36.8)
[2021-08-17 14:20] LABS: Alanine Aminotransferase 30 U/L (4-50); Albumin Level 3.8 g/dL (3.5-5.1); Alkaline Phosphatase 71 U/L (38-126); Anion Gap 9 mmol/L (8-16); Aspartate Amino Transferase 37 U/L (17-59); Bilirubin,Total 0.7 mg/dL (0.2-1.3); Blood Urea Nitrogen 34 mg/dL (9-20); Calcium 8.8 mg/dL (8.4-10.2); Carbon Dioxide 31 mmol/L (22-30); Chloride 95 mmol/L (98-107); Estimated CRCL calculation 43 ml/min; Estimated Glomerular Filt Rate 45; Glucose 170 mg/dL (65-110); Lipase 230 U/L (23-300); Potassium 4.5 mmol/L (3.4-5.0); Sodium 135 mmol/L (137-145)
[2021-08-17 14:32] LABS: NT Pro B Type Natriuretic Pept 8100 pg/mL (5-100); Troponin I < 0.012 ng/mL (0.000-0.034)
[2021-08-17 16:10] LABS: Add Urine Microscopic? YES; Appearance Urine Clear (Clear); Bilirubin Urine Negative (Negative); Blood Urine Negative (Negative); Color Urine Yellow (Yellow); Glucose Urine UA 2+ mg/dL (Negative); Hyaline Casts Urine 20-29 /lpf; Ketones Urine Negative (Negative); Leukocyte Esterase Ur Negative LEU/UL (Negative); Mucus Urine Rare /lpf; Nitrate Urine Negative (Negative); Protein Urine Negative (Negative); RBC Urine 0-2 /hpf (0-2); Specific Grav Ur 1.015 (1.001-1.035); Squamous Epithelial Cell Urine Rare /hpf (Few); Urobilinogen Urine Negative mg/dL (<2.0); WBC Urine 0-3 /hpf
[2021-08-17 16:44] LABS: SARS-CoV-2 RNA PCR Negative
[2021-08-17] MEDS: BUMETANIDE INJ 2.5 MG/10 ML VIAL 2 MG IV PUSH (17:48)
--- NOTE | 2021-08-17 19:04 | ADMGEN ---
This patient, Freddy Mireles Jr., was admitted to IMU Room 212-01 at 1823. Patient/family oriented to hospital policies and general routines including ID bracelet, bed and alarms, visiting hours, pain management, procedures, bathroom and other care routines, personal items, smoking policy, room service/diet, and visiting hours. Information on how to activate the Rapid Response Team has been discussed. Patient/Family are encouraged to report perceived risks to care and to ask questions if they do not understand what they are told or what they should do.
--- NOTE | 2021-08-17 20:11 | PM.IMHP ---
H&P: HPI History of Present Illness Date/Time: 08/17/21 20:11 Chief Complaint: NAUSEA Narrative: THIS IS AN 80-YEAR-OLD MALE WITH PAST MEDICAL HISTORY SIGNIFICANT FOR MYELODYSPLASTIC SYNDROME, CHRONIC HYPOXIC RESPIRATORY FAILURE, ATRIAL FIBRILLATION, CHRONIC ANEMIA, CHRONIC KIDNEY DISEASE, OBSTRUCTIVE SLEEP APNEA ON CPAP, HYPERTENSION, ISCHEMIC CARDIOMYOPATHY. Patient also with recent admission and transfer to [facility] for ventricular tachycardia patient with a ICD implanted. Patient had recently adjusted home meds and started on bumetanide. He presents today to the emergency room complaining of nausea however he was found to have lung infiltrates and pleural effusion and acute on chronic respiratory failure requiring higher amounts of oxygen and was placed on BiPAP. Patient denies any other issues no fevers, no rigors, no chills, no PND, no orthopnea, no leg swelling, no cough, no vomiting, no abdominal pain, no dizziness, no lightheadedness. Preliminary workup was significant for CT of abdomen and pelvis was significant for moderate bilateral pleural effusions with atelectasis. Patient is being admitted for further evaluation, management and treatment. Review of Systems Review of Systems: Patient presented to emergency room complaining of nausea he denies any other issues Constitutional: Constitutional: Denies chills, Denies fatigue, Denies fever(s), Denies lethargy, Denies malaise, Denies poor appetite and Denies weakness Eyes: Eyes: Denies change in vision ENT: Denies dysphagia, Denies vertigo, Denies dizziness, Denies nasal congestion, Denies nasal discharge, Denies nasal obstruction and Denies odynophagia Cardiovascular: Cardiovascular: Denies claudication, Denies leg edema, Denies radiating jaw, neck or arm pain, Denies palpitations, Denies dyspnea on exertion and Denies orthopnea Respiratory: Respiratory: Denies chest congestion and Denies excessive phlegm production Gastrointestinal: Gastrointestinal: Denies GI cramping, Denies dyspepsia, Denies heartburn and Reports nausea Genitourinary: Genitourinary: Denies dysuria Musculoskeletal: Musculoskeletal: Denies myalgias Integumentary/Breasts: Skin/Breast: Denies rash Neurologic: Denies vertigo, Denies dizziness, Denies focal weakness and Denies Sensory deficit (Neuro) Psychiatric: Psychiatric: Reports no additional psychiatric complaints and Reports as per HPI Endocrine: Endocrine: Denies cold intolerance, Denies heat intolerance, Denies polyphagia, Denies polydipsia, Denies polyuria and Denies palpitations Hematologic/Lymphatic: Hematologic/Lymphatic: Reports no additional hematologic/lymphatic complaints and Reports as per HPI Allergic/Immunologic: Allergic/Immunologic: Reports no additional allergic/immunologic complaints and Reports as per HPI [facility] Past Medical History Medical History Atrial fibrillation Benign prostatic hyperplasia Chronic anemia Chronic anticoagulation Chronic hypoxemic respiratory failure Chronic kidney disease, stage 3 Chronic respiratory failure with hypoxia Oxygen at 3 L per nasal cannula. Congestive heart failure Echocardiogram August 2020: EF of 45%, diastolic dysfunction with elevated left heart pressures, mild left atrial enlargement. Coronary artery disease Hyperlipidemia Hypertension Ischemic cardiomyopathy EF of 20-25% on cardiac catheterization June 2020. EF improved to 50 to 55% on echocardiogram Megaloblastic anemia Obstructive sleep apnea Patient uses a trilogy while sleeping. Type 2 diabetes mellitus Hemoglobin A1c was 5.8% on 05/02/2021. Vitamin D deficiency Surgical History Surgical History History of angioplasty History of aortic valve replacement History of cardiac catheterization Right coronary intervention in the remote past, LAD intervention about 20 years ago. Repeat catheterization 2018
[2021-08-17 23:18] LABS: Troponin I 0.014 ng/mL (0.000-0.034)
[2021-08-17] MEDS: ONDANSETRON INJ 4 MG/2 ML VIAL IV PUSH (23:25)
[2021-08-18] VITALS (24 sets, daily range): BP systolic 93–110; BP diastolic 58–67; PULSE 83–92; RESP 19–89; TEMP 35.9–36.7; O2SAT 93–100
--- NOTE | 2021-08-18 | ECHO_ITS ---
Patient Info Name: Freddy Mireles Age: 80 years : 1940 Gender: Male Ht: 73 in Wt: 231 lbs BSA: 2.35 m2 HR: 90 bpm BP: 105 / 58 mmHg Heart Rhythm: Paced Exam Date: 08/18/2021 9:48 AM Exam Location: [facility] Pul[facility] Patient Status: Outpatient Admit Date: 08/17/2021 Staff Ordering Physician: Nadira Bueno MD [employer]: Cr David, DUARTE, RT Attending Provider: Shyam Carolina MD Referring Physician: Myles SERRANO; Exam Type: CA echo dop color flow w con Study Info Indications R06.02 - Shortness of breath Complete two-dimensional, color flow and Doppler transthoracic echocardiogram is performed with contrast to opacify the left ventricle and to improve the deliniation of the left ventricle endocardial borders. Summary 1. Left ventricular chamber dimension is mildly enlarged. 2. Left ventricular systolic function is mildly reduced, estimated at 40-45%. 3. There is no increased left ventricular wall thickness. 4. The left ventricular diastolic function is abnormal. 5. The inferior wall, basal inferolateral wall, and mid inferolateral wall are akinetic. 6. Right ventricular systolic function is reduced. 7. Left atrial chamber dimension is severely enlarged. 8. Right atrial chamber dimension is mildly enlarged. 9. There is moderate to severe mitral valve regurgitation. 10. There is lack of coaptation of the mitral valve leaflets resulting in significant mitral regurgitation. 11. There is mild tricuspid valve regurgitation. 12. Severe pulmonary hypertension, estimated pulmonary arterial systolic pressure is 62 mmHg. Left Ventricle Left ventricular chamber dimension is mildly enlarged. Left ventricular systolic function is mildly reduced, estimated at 40-45%. There is no increased left ventricular wall thickness. The left ventricular diastolic function is abnormal. The inferior wall, basal inferolateral wall, and mid inferolateral wall are akinetic. All other montelongo appear normal. Right Ventricle Right ventricular chamber dimension is normal. Right ventricular systolic function is reduced. Left Atria Left atrial chamber dimension is severely enlarged. Right Atria Right atrial chamber dimension is mildly enlarged. Atrial Septum Intact interatrial septum visualized by color flow imaging. Aortic Valve The aortic valve is trileaflet. There is mild aortic valve sclerosis. There is no aortic valve stenosis. There is trace aortic valve regurgitation. Pulmonic Valve The pulmonic valve is normal. There is no pulmonic valve stenosis. There is trace pulmonic regurgitation. Mitral Valve The mitral valve has thickened leaflets. There is no mitral valve stenosis. There is moderate to severe mitral valve regurgitation. There is lack of coaptation of the mitral valve leaflets resulting in significant mitral regurgitation. Tricuspid Valve The tricuspid valve leaflets are normal. There is no significant tricuspid valve stenosis. There is mild tricuspid valve regurgitation. Severe pulmonary hypertension, estimated pulmonary arterial systolic pressure is 62 mmHg. Pericardium/Pleural The pericardium appears normal. There is no pericardial effusion. Inferior Vena Cava Dilated inferior vena cava with <50% collapse upon inspiration consistent with elevated right atrial pressure, 15 mmHg. Aorta The aortic root size at the sinus of Valsalva is normal. Left Ventricular Outflow Tract
--- NOTE | 2021-08-18 03:05 | PCRCNOTE ---
Pt was on S/T of 07/04 with a backup rate of 14. He asked to be switched to his home machine that was here with him. Because he was still acutely ill and requiring larger quantities of supplemental oxygen, I instead took the AVAPS settings from his home machine and was directed by Dr. Bueno to change his order to reflect those settings. Changes were made and the pt reported that his breathing was much easier with these new settings. New settings are target tidal volume of 500; EPAP of 11, IPAP range of 18-30, RR of 12, and Ti of 0.8.
[2021-08-18] MEDS: ONDANSETRON INJ 4 MG/2 ML VIAL IV PUSH ×3 (03:15→22:57)
[2021-08-18 05:28] LABS: Basophils Percent Auto 0.2 % (0.2-1.2); Eosinophils Percent Auto 0.3 % (0-4.4); Hematocrit 28.1 % (42.0-52.0); Hemoglobin 8.9 g/dL (14.0-18.0); Immature Granulocyte Absolute 0.08 K/mm3 (0.00-0.031); Immature Granulocyte Percent A 0.9 % (0-0.5); Lymphocytes Percent Auto 12.2 % (18.3-44.2); Mean Corpuscular HGB Conc 31.7 g/dl (32-36); Mean Corpuscular Hemoglobin 36.6 pg (26-34); Mean Corpuscular Volume 115.6 fl (80-100); Mean Platelet Volume 11.1 fl (7.4-10.4); Monocytes Absolute Auto 0.7 K/mm3 (0.1-0.6); Monocytes Percent Auto 7.4 % (2.6-8.5); Neutrophils Absolute Auto 7.2 K/mm3 (1.3-6.7); Nucleated Red Blood Cells Absolute Auto 0.1 K/mm3 (0.0-0.012); Nucleated Red Blood Cells Perc 0.7 % (0.0-0.2); Platelet Count Result 193 k/mm3 (150-375); Red Blood Count 2.43 M/mm3 (4.6-6.20); Red Cell Distribution Width 19.6 % (11.5-14.5); White Blood Count 9.1 K/mm3 (4.5-10.0)
[2021-08-18 05:46] LABS: Alanine Aminotransferase 28 U/L (4-50); Albumin Level 3.3 g/dL (3.5-5.1); Alkaline Phosphatase 50 U/L (38-126); Anion Gap 7 mmol/L (8-16); Aspartate Amino Transferase 34 U/L (17-59); Bilirubin,Total 0.9 mg/dL (0.2-1.3); Blood Urea Nitrogen 36 mg/dL (9-20); Calcium 8.5 mg/dL (8.4-10.2); Carbon Dioxide 32 mmol/L (22-30); Chloride 94 mmol/L (98-107); Estimated CRCL calculation 46 ml/min; Estimated Glomerular Filt Rate 49; Glucose 186 mg/dL (65-110); Potassium 4.1 mmol/L (3.4-5.0); Sodium 133 mmol/L (137-145)
[2021-08-18] MEDS: CYANOCOBALAMIN 500 MCG TABLET 1500 MCG PO ×2 (08:10→17:46)
[2021-08-18] MEDS: ROFLUMILAST 500 MCG TABLET PO (08:10)
[2021-08-18] MEDS: PANTOPRAZOLE SODIUM IV 40 MG VIAL IV PUSH ×2 (08:10→21:19)
[2021-08-18] MEDS: PREGABALIN (*CRX) 50 MG CAPSULE 100 MG PO ×3 (08:10→21:18)
[2021-08-18] MEDS: ROSUVASTATIN 5 MG TABLET PO (08:10)
[2021-08-18] MEDS: AMIODARONE HCL 200 MG TABLET PO (08:11)
[2021-08-18] MEDS: FERROUS SULFATE 324 MG TABLET PO ×2 (08:11→17:44)
[2021-08-18] MEDS: TAMSULOSIN HCL 0.4 MG CAPSULE PO (08:11)
[2021-08-18] MEDS: FINASTERIDE 5 MG TABLET PO (08:11)
[2021-08-18] MEDS: CHOLECALCIFEROL 1,000 UNITS TABLET 2000 UNITS PO (08:11)
[2021-08-18] MEDS: carvediloL 3.125 MG TABLET PO ×2 (08:11→21:19)
[2021-08-18] MEDS: APIXABAN 5 MG TABLET PO ×2 (08:12→17:46)
[2021-08-18] MEDS: CLOPIDOGREL BISULFATE 75 MG TABLET PO (08:12)
[2021-08-18] MEDS: BUMETANIDE INJ 2.5 MG/10 ML VIAL 2 MG IV PUSH ×2 (08:12→17:45)
[2021-08-18] MEDS: OMEGA 3 POLYUNSAT FATTY ACIDS 1 GM CAP 2 GM PO ×2 (08:13→17:46)
[2021-08-18] MEDS: MEXILETINE HCL 150 MG CAPSULE BY MOUTH ×2 (08:13→17:46)
[2021-08-18 08:47] LABS: Glucose Point of Care 131 mg/dl (65-105)
--- NOTE | 2021-08-18 10:39 | PM.IMPN ---
Progress Note: A&P Assessment and Plan (1) Acute on chronic diastolic congestive heart failure, NYHA class 4: Code(s): I50.33 - Acute on chronic diastolic (congestive) heart failure Status: Acute Assessment and Plan: Currently admitted to IMU. Continue aggressive diuresis Strict intake and output daily while monitoring serial chemistries closely. Echocardiogram April 11, 2021 shows left ventricular systolic function is normal, estimated at 50-55%. Right ventricle linear artifact suggesting ICD lead. Mild valve regurgitation. Follow-up report of repeat echocardiogram today. Cardiology was consulted; appreciate recommendations. (2) Acute and chronic respiratory failure ([id number]): Qualifiers: Respiratory failure complication: unspecified whether with hypoxia or hypercapnia Qualified Code(s): J96.20 - Acute and chronic respiratory failure, unspecified whether with hypoxia or hypercapnia Code(s): J96.20 - Acute and chronic respiratory failure, unspecified whether with hypoxia or hypercapnia Status: Acute Assessment and Plan: Patient is on trilogy at nighttime Currently on BiPAP Try and keep oxygen saturation above 92% (3) ICD (implantable cardioverter-defibrillator) in place: Code(s): Z95.810 - Presence of automatic (implantable) cardiac defibrillator Status: Acute Assessment and Plan: Patient had device interrogated and adjusted at [facility] just recently according to medical record (4) Chronic kidney disease, stage 3: Code(s): N18.30 - Chronic kidney disease, stage 3 unspecified Status: Acute Assessment and Plan: BUN and creatinine at patient's baseline. Avoid nephrotoxic medication. Please renally dose medication. Continue to monitor (5) Chronic combined systolic and diastolic congestive heart failure: Code(s): I50.42 - Chronic combined systolic (congestive) and diastolic (congestive) heart failure Status: Acute Assessment and Plan: Patient recently started on bumetanide according to medical records. Continue bumetanide 2 mg IV push b.i.d.. Continue carvedilol (6) Obstructive sleep apnea: Code(s): G47.33 - Obstructive sleep apnea (adult) (pediatric) Status: Acute Assessment and Plan: Patient on trilogy at home. Continue BiPAP at night and during naps. (7) Myelodysplastic syndrome: Code(s): D46.9 - Myelodysplastic syndrome, unspecified Status: Acute Assessment and Plan: According to heme Onc notes patient is undergoing chemotherapy Unchanged (8) Chronic anemia: Code(s): D64.9 - Anemia, unspecified Status: Acute Assessment and Plan: Moderate anemia hemoglobin of 9.8. Anemia is macrocytic and normochromic. Check B12 and folate. Patient may need folinic acid. (9) Type 2 diabetes mellitus: Code(s): E11.9 - Type 2 diabetes mellitus without complications Status: Acute Assessment and Plan: Will hold metformin while inpatient. Insulin sliding scale as needed Accu-Cheks AC and HS. Fasting blood glucose was 186. Accu-Chek was 131 today. Subjective Date/time seen: 08/18/21 10:05 S: 08/18/21 10:16 Narrative: This is an 80-year-old gentleman with a past medical history including but not limited to myelodysplastic syndrome, chronic hypoxic respiratory failure, atrial fibrillation, chronic anemia, CKD, obstructive sleep apnea on CPAP, hypertension, ischemic cardiomyopathy who was recently transferred to [facility] for ventricular tachycardia in a patient with ICD implanted.He ws evaluated in the emergency department for complaints of nausea;however he was found to have lung infiltrates and pleural effusion and acute on chronic respiratory failure requiring higher amounts of oxygen and was placed on BiPAP. Patient was started on aggressive diuresis. Cardiology was consulted and an echocardiogram was performed. S: Patient is seen and examin
[2021-08-18] MEDS: PERFLUTREN LIPID MICROSPHERES 1.5 ML VIAL DILUTED TO 10 ML TOTAL VOLUME (10:57)
--- NOTE | 2021-08-18 10:59 | PM.CNCAR ---
Assessment and Plan Assessment and plan (1) Acute on chronic systolic and diastolic heart failure, NYHA class 4: Code(s): I50.43 - Acute on chronic combined systolic (congestive) and diastolic (congestive) heart failure Status: Acute Assessment and Plan: Progressively worsening. His oral intake has been down. Chest x-ray and CT scan though shows diffuse infiltrates. aggressive IV diuretics for another 24 hours with Bumex 2 mg IV q.12. Likely reduce tomorrow. Follow basic metabolic panel. Intake and output will be monitored as well as low-sodium diet and monitor daily weights. 2D echocardiogram Doppler is ordered and will be reviewed. (2) Nausea: Code(s): R11.0 - Nausea Status: Acute Assessment and Plan: ? Etiology. May be related to amiodarone. Right upper quadrant ultrasound will be ordered. (3) Ischemic cardiomyopathy: Code(s): I25.5 - Ischemic cardiomyopathy Status: Chronic (4) Hypertension: Code(s): I10 - Essential (primary) hypertension Status: Chronic Assessment and Plan: Controlled. Continue current meds. (5) DM2 (diabetes mellitus, type 2): Code(s): E11.9 - Type 2 diabetes mellitus without complications Status: Chronic (6) ICD (implantable cardioverter-defibrillator) in place: Code(s): Z95.810 - Presence of automatic (implantable) cardiac defibrillator Status: Acute Assessment and Plan: Function normally (7) History of ventricular tachycardia: Code(s): Z86.79 - Personal history of other diseases of the circulatory system Status: Acute Assessment and Plan: At this point will hold amiodarone to see if his nausea improves. There is concern that worsening arrhythmia although by doing so. Continue mexiletine (8) Acute and chronic respiratory failure ([id number]): Qualifiers: Respiratory failure complication: unspecified whether with hypoxia or hypercapnia Qualified Code(s): J96.20 - Acute and chronic respiratory failure, unspecified whether with hypoxia or hypercapnia Code(s): J96.20 - Acute and chronic respiratory failure, unspecified whether with hypoxia or hypercapnia Status: Acute Assessment and Plan: Currently on BiPAP History of Present Illness History of Present Illness Consult date/time: 08/18/21 10:59 Requesting physician: Issa Keane DO Consult reason: congestive heart failure Reason For Visit: Acute resp fail w/ hypoxia; CHF; Acute renal suffi Narrative: Reason for consultation: CHF Date of service: 08/18/2021 Requesting provider: Dr. Keane History patient 80-year-old male who has only been home a week. He had extended stay at [facility]. He had ventricular tachycardia. He has a history of recurrent CHF, sleep apnea, chronic kidney disease, mild dysplastic syndrome, atrial fibrillation, ICD implantation. Medications were adjusted patient was at [facility] for several weeks. No ablation was performed. He was discharged to home and has been home for about a week and progressively has felt worse. He complains of severe nausea and decreased p.o. intake. He is short of breath but x-ray came to the hospital predominantly because of the nausea. Chest x-ray shows diffuse lung infiltrates consistent with pulmonary edema. He has had no paroxysmal nocturnal dyspnea, chest pain, it edema, syncope, presyncope. Reportedly was using his CPAP at home continuously for about 2 days prior to coming into the hospital. He was still hypoxic upon admission and was placed on BiPAP which did improve his oxygenation. He was started on diuretics. He states he feels about the same and still nauseated and feels poorly overall. Review of Systems Review of Systems: All systems reviewed & are unremarkable except as noted in HPI and below Constitutional: Constitutional: Reports fatigue and Reports weakness Eyes: Eyes: Denies blurry vision ENT:
--- NOTE | 2021-08-18 12:23 | PCRCNOTE ---
Pt requested to be on home unit. Placed pt on their home unit per their request and they stated they felt like it wasnt enough for them. Their O2 sat was 94 on their home unit and requested to go back on the hospital V60 unit.
[2021-08-18 12:41] LABS: Glucose Point of Care 149 mg/dl (65-105)
[2021-08-18] MEDS: SILVERGEL (ELTA) 45 ML 1 APPLIC TOPICAL (15:29)
[2021-08-18 17:07] LABS: Glucose Point of Care 148 mg/dl (65-105)
[2021-08-18 20:50] LABS: Glucose Point of Care 132 mg/dl (65-105)
[2021-08-18] MEDS: AMITRIPTYLINE HCL 25 MG TABLET PO (21:18)
[2021-08-18] MEDS: SENNA/DOCUSATE SODIUM TABLET 1 TAB PO (21:19)
[2021-08-18] MEDS: diphenhydrAMINE HCl CAP 25 MG CAPSULE PO (21:20)
[2021-08-19] VITALS (32 sets, daily range): BP systolic 94–111; BP diastolic 57–67; PULSE 80–96; RESP 16–30; TEMP 36.1–37; O2SAT 86–99
--- NOTE | 2021-08-19 08:18 | PM.IMPN ---
Progress Note: A&P Assessment and Plan (1) Acute on chronic diastolic congestive heart failure, NYHA class 4: Code(s): I50.33 - Acute on chronic diastolic (congestive) heart failure Status: Acute Assessment and Plan: Acute decompensated congestive heart failure, clinically worsening. Despite aggressive diuresis, urinary output has been modest. Chest x-ray and CT scan of the chest reveal bilateral diffuse infiltrate. Will monitor the BMP which has not been drawn yet today. Will monitor intake and output, still chemistry, daily weights. Continue aggressive diuresis Strict intake and output daily while monitoring serial chemistries closely. Echocardiogram April 11, 2021 shows left ventricular systolic function is normal, estimated at 50-55%. Right ventricle linear artifact suggesting ICD lead. Mild valve regurgitation. (2) Acute and chronic respiratory failure ([id number]-zd-[id number]): Qualifiers: Respiratory failure complication: unspecified whether with hypoxia or hypercapnia Qualified Code(s): J96.20 - Acute and chronic respiratory failure, unspecified whether with hypoxia or hypercapnia Code(s): J96.20 - Acute and chronic respiratory failure, unspecified whether with hypoxia or hypercapnia Status: Acute Assessment and Plan: Patient is on trilogy at nighttime Currently on BiPAP Try and keep oxygen saturation above 92% (3) ICD (implantable cardioverter-defibrillator) in place: Code(s): Z95.810 - Presence of automatic (implantable) cardiac defibrillator Status: Acute Assessment and Plan: Patient had device interrogated and adjusted at [place] just recently according to medical record (4) Chronic kidney disease, stage 3: Code(s): N18.30 - Chronic kidney disease, stage 3 unspecified Status: Acute Assessment and Plan: BUN and creatinine at patient's baseline. Avoid nephrotoxic medication. Please renally dose medication. Continue to monitor (5) Chronic combined systolic and diastolic congestive heart failure: Code(s): I50.42 - Chronic combined systolic (congestive) and diastolic (congestive) heart failure Status: Acute Assessment and Plan: Patient recently started on bumetanide according to medical records. Continue bumetanide 2 mg IV push b.i.d.. Continue carvedilol (6) Obstructive sleep apnea: Code(s): G47.33 - Obstructive sleep apnea (adult) (pediatric) Status: Acute Assessment and Plan: Patient on trilogy at home. Continue BiPAP at night and during naps. (7) Myelodysplastic syndrome: Code(s): D46.9 - Myelodysplastic syndrome, unspecified Status: Acute Assessment and Plan: According to heme Onc notes patient is undergoing chemotherapy Unchanged (8) Chronic anemia: Code(s): D64.9 - Anemia, unspecified Status: Acute Assessment and Plan: Moderate anemia hemoglobin of 9.8. Anemia is macrocytic and normochromic. Check B12 and folate. Patient may need folinic acid. (9) Type 2 diabetes mellitus: Code(s): E11.9 - Type 2 diabetes mellitus without complications Status: Acute Assessment and Plan: Will hold metformin while inpatient. Insulin sliding scale as needed Accu-Cheks AC and HS. Fasting blood glucose was 186. Accu-Chek was 131 today. (10) Nausea: Code(s): R11.0 - Nausea Status: Acute Assessment and Plan: Mild improvement after discontinuation of amiodarone. Liver ultrasound shows cholelithiasis. Will consult GI. Subjective Date/time seen: 08/19/21 08:18 S: Patient was seen and examined at the bedside. He is breathing on the BiPAP. His oral intake has been poor. Breathing is not improving. Nausea is better today. Review of Systems Review of Systems: All systems reviewed & are unremarkable except as noted in HPI and below Constitutional: Constitutional: Reports as per HPI, Denies chills, Denies fatigue, Denies fe
[2021-08-19 08:30] LABS: Glucose Point of Care 134 mg/dl (65-105)
[2021-08-19 10:04] LABS: Anion Gap 9 mmol/L (8-16); Blood Urea Nitrogen 41 mg/dL (9-20); Calcium 8.8 mg/dL (8.4-10.2); Carbon Dioxide 31 mmol/L (22-30); Chloride 93 mmol/L (98-107); Estimated CRCL calculation 39 ml/min; Estimated Glomerular Filt Rate 45; Glucose 177 mg/dL (65-110); Potassium 4.4 mmol/L (3.4-5.0); Sodium 133 mmol/L (137-145)
[2021-08-19] MEDS: FERROUS SULFATE 324 MG TABLET PO (10:24)
[2021-08-19] MEDS: MEXILETINE HCL 150 MG CAPSULE BY MOUTH ×2 (10:24→22:10)
[2021-08-19] MEDS: APIXABAN 5 MG TABLET PO ×2 (10:24→22:09)
[2021-08-19] MEDS: FINASTERIDE 5 MG TABLET PO (10:24)
[2021-08-19] MEDS: CLOPIDOGREL BISULFATE 75 MG TABLET PO (10:24)
[2021-08-19] MEDS: TAMSULOSIN HCL 0.4 MG CAPSULE PO (10:24)
[2021-08-19] MEDS: CHOLECALCIFEROL 1,000 UNITS TABLET 2000 UNITS PO (10:25)
[2021-08-19] MEDS: carvediloL 3.125 MG TABLET PO ×2 (10:25→22:03)
[2021-08-19] MEDS: ROFLUMILAST 500 MCG TABLET PO (10:25)
[2021-08-19] MEDS: ROSUVASTATIN 5 MG TABLET PO (10:25)
[2021-08-19] MEDS: CYANOCOBALAMIN 500 MCG TABLET 1500 MCG PO (10:26)
[2021-08-19] MEDS: PANTOPRAZOLE SODIUM IV 40 MG VIAL IV PUSH ×2 (10:26→22:03)
[2021-08-19] MEDS: OMEGA 3 POLYUNSAT FATTY ACIDS 1 GM CAP 2 GM PO (10:26)
[2021-08-19] MEDS: PREGABALIN (*CRX) 50 MG CAPSULE 100 MG PO ×3 (10:27→22:10)
[2021-08-19] MEDS: ONDANSETRON INJ 4 MG/2 ML VIAL IV PUSH ×3 (10:27→22:25)
[2021-08-19] MEDS: SILVERGEL (ELTA) 45 ML 1 APPLIC TOPICAL (10:30)
[2021-08-19] MEDS: BUMETANIDE INJ 2.5 MG/10 ML VIAL 2 MG IV PUSH ×2 (12:01→18:00)
--- NOTE | 2021-08-19 12:02 | PM.PNCARD ---
Progress Note: A&P Additional Plan 80-year-old man with: Decompensated congestive heart failure with ischemic LV dysfunction and current echo showing also at least moderate mitral valve regurgitation. High-dose Bumex is not affecting a good diuresis at this time. Amiodarone has been necessary to control both atrial and ventricular arrhythmias. He has been on this agent for a long time. His transaminases are negative. I do not believe this is the reason for his nausea and I am going to resume it at this time. Patient is agreeable with this. He is concerned about his defibrillator firing if he is taken off of his medication. I will try starting low dose of Dopamine to assist with diuresis. This patient has congestive heart failure syndrome is clinically worsening significantly. He understands this despite this and his advanced age he wishes to still be a full code. Prognosis is poor at this time Tony Miller MD [facility] Subjective Date/time seen: 08/19/21 12:02 Interval history: Follow-up visit in this 80-year-old man with: History of ischemic heart disease as detailed in many previous notes. Patient also has many admissions with decompensated congestive heart failure as well as atrial and ventricular arrhythmias. Recent hospitalization in [place] for treatment of ventricular tachycardia. Presented to this hospital primarily with symptoms of nausea. Amiodarone has been placed on hold because of this. Patient is having more difficulty with respiratory status is now requiring BiPAP. Chest x-ray shows worsening bilateral pulmonary edema. Has been receiving 2 mg Bumex q 12 hours with no significant or minimal diuretic response. Patient looks extremely weak has been eating poorly no other active complaints Exam Narrative: Appears stated age Const: General: no acute distress and uncomfortable HENMT: General nose exam: Normal nares present Eyes: Sclera: sclerae normal Neck: Neck: supple and no JVD Carotids: no bruits Chest: Other: No reproducible chest wall pain to palpation Resp: Auscultation: crackles Cardio: Rate: regular rate Other: Paced rhythm GI: Auscultation: normal bowel sounds Skin: General skin exam: normal color Other: Extensive ecchymosis noted on his arms and legs Neuro: Cranial nerves: Yes Normal hearing present Cognition (Neuro): normal cognition Speech: normal speech Extrem: General: no edema Psych: Affect: normal affect Objective Data Vital Signs Vital Signs: Vital Signs - 24 hr 08/18/21 12:42 08/18/21 13:56 08/18/21 14:00 Temperature 35.9 C L Pulse Rate 90 85 89 Respiratory Rate 24 H 24 H Blood Pressure 101/65 Pulse Oximetry 93 94 08/18/21 16:00 08/18/21 17:46 08/18/21 18:00 Temperature 36.7 C Pulse Rate 89 89 91 Respiratory Rate 20 Blood Pressure 110/67 Pulse Oximetry 98 08/18/21 19:38 08/18/21 20:00 08/18/21 21:19 Temperature 36.1 C L Pulse Rate 90 90 89 Respiratory Rate 25 H Blood Pressure 109/67 Pulse Oximetry 100 100 08/18/21 21:59 08/18/21 22:00 08/18/21 23:23 Temperature Pulse Rate 83 89 89 Respiratory Rate 22 H 21 H Blood Pressure 93/59 L Pulse Oximetry 95 99 08/19/21 00:00 08/19/21 00:07 08/19/21 02:00 Temperature Pulse Rate 89 80 89 Respiratory Rate 21 H Blood Pressure Pulse Oximetry 95 08/19/21 03:48 08/19/21 04:00 08/19/21 05:49 Temperature 36.4 C Pulse Rate 89 90 Respiratory Rate 21 H 23 H Blood Pressure 94/59 L Pulse Oximetry 99 96 95 08/19/21 06:00 08/19/21 08:00 08/19/21 09:25 Temperature 37.0 C Pulse Rate 96 87 Respiratory Rate 22 H Blood Pressure 104/64 Pulse Oximetry 97 91 08/19/21 09:34 08/19/21 10:24 08/19/21 10:25 Temperature Pulse Rate 89 89 89 Respiratory Rate 26 H Blood Pressure Pulse Oximetry 94 Intake/Output Intake/Output: Intake & Output 08/16/21 08/17/21 08/18/21 08/19/21 23:59 23:59 23:59 23:59 Intake Total
[2021-08-19 12:15] LABS: Glucose Point of Care 149 mg/dl (65-105)
[2021-08-19] MEDS: DOPamine 400 MG/D5W 250 ML 400 MG/250 ML BAG 9.3 MG IV CONT (13:55)
[2021-08-19 17:33] LABS: Glucose Point of Care 157 mg/dl (65-105)
[2021-08-19 21:13] LABS: Glucose Point of Care 133 mg/dl (65-105)
[2021-08-19] MEDS: IPRATROPIUM BR 0.02% INH SOLN 0.5 MG/2.5 ML VIAL 1 MG INHALATION (22:00)
[2021-08-19] MEDS: AMIODARONE HCL 200 MG TABLET PO (22:02)
[2021-08-19] MEDS: AMITRIPTYLINE HCL 25 MG TABLET PO (22:03)
[2021-08-19] MEDS: SENNA/DOCUSATE SODIUM TABLET 1 TAB PO (22:11)
[2021-08-20] VITALS (31 sets, daily range): BP systolic 96–108; BP diastolic 56–78; PULSE 84–92; RESP 17–30; TEMP 36.2–37.4; O2SAT 94–100
[2021-08-20] MEDS: ONDANSETRON INJ 4 MG/2 ML VIAL IV PUSH ×3 (02:21→10:02)
[2021-08-20] MEDS: IPRATROPIUM BR 0.02% INH SOLN 0.5 MG/2.5 ML VIAL 1 MG INHALATION ×4 (02:30→21:39)
[2021-08-20 05:04] LABS: Hematocrit 28.6 % (42.0-52.0); Hemoglobin 8.9 g/dL (14.0-18.0); Mean Corpuscular HGB Conc 31.1 g/dl (32-36); Mean Corpuscular Hemoglobin 36.3 pg (26-34); Mean Corpuscular Volume 116.7 fl (80-100); Mean Platelet Volume 10.8 fl (7.4-10.4); Platelet Count Result 154 k/mm3 (150-375); Red Blood Count 2.45 M/mm3 (4.6-6.20); Red Cell Distribution Width 19.1 % (11.5-14.5); White Blood Count 6.7 K/mm3 (4.5-10.0)
[2021-08-20 05:17] LABS: Anion Gap 6 mmol/L (8-16); Blood Urea Nitrogen 44 mg/dL (9-20); Calcium 8.4 mg/dL (8.4-10.2); Carbon Dioxide 35 mmol/L (22-30); Chloride 91 mmol/L (98-107); Estimated CRCL calculation 39 ml/min; Estimated Glomerular Filt Rate 45; Glucose 130 mg/dL (65-110); Potassium 3.7 mmol/L (3.4-5.0); Sodium 132 mmol/L (137-145)
[2021-08-20] MEDS: diphenhydrAMINE HCl CAP 25 MG CAPSULE PO (05:52)
[2021-08-20 08:50] LABS: Glucose Point of Care 119 mg/dl (65-105)
[2021-08-20] MEDS: AMIODARONE HCL 200 MG TABLET PO ×2 (09:45→16:47)
[2021-08-20] MEDS: FERROUS SULFATE 324 MG TABLET PO ×2 (09:45→16:48)
[2021-08-20] MEDS: CHOLECALCIFEROL 1,000 UNITS TABLET 2000 UNITS PO (09:46)
[2021-08-20] MEDS: BUMETANIDE INJ 2.5 MG/10 ML VIAL 2 MG IV PUSH ×2 (09:46→16:46)
[2021-08-20] MEDS: APIXABAN 5 MG TABLET PO ×2 (09:46→16:48)
[2021-08-20] MEDS: carvediloL 3.125 MG TABLET PO ×2 (09:46→20:03)
[2021-08-20] MEDS: FINASTERIDE 5 MG TABLET PO (09:47)
[2021-08-20] MEDS: CYANOCOBALAMIN 500 MCG TABLET 1500 MCG PO ×2 (09:47→16:47)
[2021-08-20] MEDS: MEXILETINE HCL 150 MG CAPSULE BY MOUTH ×2 (09:47→16:48)
[2021-08-20] MEDS: CLOPIDOGREL BISULFATE 75 MG TABLET PO (09:47)
[2021-08-20] MEDS: OMEGA 3 POLYUNSAT FATTY ACIDS 1 GM CAP 2 GM PO ×2 (09:48→16:46)
[2021-08-20] MEDS: ROSUVASTATIN 5 MG TABLET PO (09:48)
[2021-08-20] MEDS: ROFLUMILAST 500 MCG TABLET PO (09:49)
[2021-08-20] MEDS: PANTOPRAZOLE SODIUM IV 40 MG VIAL IV PUSH ×2 (09:49→20:04)
[2021-08-20] MEDS: TAMSULOSIN HCL 0.4 MG CAPSULE PO (09:49)
[2021-08-20] MEDS: SILVERGEL (ELTA) 45 ML 1 APPLIC TOPICAL (09:49)
[2021-08-20] MEDS: PREGABALIN (*CRX) 50 MG CAPSULE 100 MG PO ×3 (09:54→16:45)
--- NOTE | 2021-08-20 11:03 | PM.PNCARD ---
Progress Note: A&P Assessment and Plan (1) Acute on chronic systolic and diastolic heart failure, NYHA class 4: Code(s): I50.43 - Acute on chronic combined systolic (congestive) and diastolic (congestive) heart failure Status: Acute Assessment and Plan: Progressively worsening. His oral intake has been down. Chest x-ray and CT scan though shows diffuse infiltrates. aggressive IV diuretics for another 24 hours with Bumex 2 mg IV q.12. Some improvement noted by chest x-ray with the addition of ionotropic therapy. Continue aggressive IV diuretics. KCL 40 mEq p.o. x1 (2) Nausea: Code(s): R11.0 - Nausea Status: Acute Assessment and Plan: ? Etiology. (3) Ischemic cardiomyopathy: Code(s): I25.5 - Ischemic cardiomyopathy Status: Chronic Assessment and Plan: EF around 40-45% (4) Hypertension: Code(s): I10 - Essential (primary) hypertension Status: Chronic Assessment and Plan: Controlled. Continue current meds. (5) DM2 (diabetes mellitus, type 2): Code(s): E11.9 - Type 2 diabetes mellitus without complications Status: Chronic (6) ICD (implantable cardioverter-defibrillator) in place: Code(s): Z95.810 - Presence of automatic (implantable) cardiac defibrillator Status: Acute Assessment and Plan: Function normally (7) History of ventricular tachycardia: Code(s): Z86.79 - Personal history of other diseases of the circulatory system Status: Acute Assessment and Plan: On amiodarone and mexiletine (8) Acute and chronic respiratory failure (stmov-pr-itczdxp): Qualifiers: Respiratory failure complication: unspecified whether with hypoxia or hypercapnia Qualified Code(s): J96.20 - Acute and chronic respiratory failure, unspecified whether with hypoxia or hypercapnia Code(s): J96.20 - Acute and chronic respiratory failure, unspecified whether with hypoxia or hypercapnia Status: Acute Assessment and Plan: Currently on BiPAP (9) Mitral regurgitation: Code(s): I34.0 - Nonrheumatic mitral (valve) insufficiency Status: Acute Assessment and Plan: This is worsened and significant. Likely least in part the cause of his recent decompensation. Unfortunately Mr. Mierles's prognosis is poor. Still wishes aggressive therapy for now. Subjective Date/time seen: 08/20/21 11:03 Interval history: Follow-up visit in this 80-year-old man with: History of ischemic heart disease as detailed in many previous notes. Patient also has many admissions with decompensated congestive heart failure as well as atrial and ventricular arrhythmias. Recent hospitalization in [place] for treatment of ventricular tachycardia. Presented to this hospital primarily with symptoms of nausea. Date of service 08/20/2021: Still is complaining of nausea. Has significant shortness of breath also. No edema. No chest pain Review of Systems Review of Systems: All systems reviewed & are unremarkable except as noted in HPI and below Constitutional: Constitutional: Denies excessive sweating, Reports fatigue, Denies headache(s) and Reports weakness Eyes: Eyes: Denies blurry vision ENT: Reports Normal hearing present, Denies headache(s) and Denies neck pain Cardiovascular: Cardiovascular: Denies chest pain, Reports dyspnea and Reports dyspnea on exertion Respiratory: Respiratory: Reports dyspnea and Reports dyspnea on exertion Gastrointestinal: Gastrointestinal: Reports nausea Genitourinary: Genitourinary: Denies dysuria Musculoskeletal: Musculoskeletal: Denies neck pain Integumentary/Breasts: Skin/Breast: Denies dry skin Neurologic: Reports Normal hearing present, Denies headache(s) and Reports weakness Psychiatric: Psychiatric: Denies anxiety Endocrine: Endocrine: Denies excessive sweating and Reports fatigue Hematologic/Lymphatic: Hematologic/Lymphatic: Denies easy
[2021-08-20 12:42] LABS: Glucose Point of Care 172 mg/dl (65-105)
[2021-08-20] MEDS: POTASSIUM CHLORIDE 20 MEQ TABLET 40 MEQ PO (12:49)
--- NOTE | 2021-08-20 13:30 | PM.IMPN ---
Progress Note: A&P Assessment and Plan (1) Acute on chronic diastolic congestive heart failure, NYHA class 4: Code(s): I50.33 - Acute on chronic diastolic (congestive) heart failure Status: Acute Assessment and Plan: Acute decompensated congestive heart failure, clinically worsening. Despite aggressive diuresis, urinary output has been modest, and patient was started on low-dose dopamine with improvement of urinary output.. Chest x-ray and CT scan of the chest reveal bilateral diffuse infiltrate. Will monitor the BMP which has not been drawn yet today. Will monitor intake and output, still chemistry, daily weights. Continue aggressive diuresis Strict intake and output daily while monitoring serial chemistries closely. Echocardiogram April 11, 2021 shows left ventricular systolic function is normal, estimated at 50-55%. Right ventricle linear artifact suggesting ICD lead. Mild valve regurgitation. (2) Acute and chronic respiratory failure (vyuja-ec-enyhpzj): Qualifiers: Respiratory failure complication: unspecified whether with hypoxia or hypercapnia Qualified Code(s): J96.20 - Acute and chronic respiratory failure, unspecified whether with hypoxia or hypercapnia Code(s): J96.20 - Acute and chronic respiratory failure, unspecified whether with hypoxia or hypercapnia Status: Acute Assessment and Plan: Acute hypoxic hypercapnic respiratory failure secondary to COPD. Patient is on home noninvasive ventilator at night and p.r.n.. Currently patient's respiratory status is worsening and patient is BiPAP dependent most of the time. Patient is on trilogy at nighttime. Try and keep oxygen saturation above 92%. Pulmonary has been consulted. Appreciate their recommendation. (3) ICD (implantable cardioverter-defibrillator) in place: Code(s): Z95.810 - Presence of automatic (implantable) cardiac defibrillator Status: Acute Assessment and Plan: Patient had device interrogated and adjusted at [place] just recently according to medical record (4) Chronic kidney disease, stage 3: Code(s): N18.30 - Chronic kidney disease, stage 3 unspecified Status: Acute Assessment and Plan: BUN and creatinine at patient's baseline. Avoid nephrotoxic medication. Please renally dose medication. Continue to monitor (5) Chronic combined systolic and diastolic congestive heart failure: Code(s): I50.42 - Chronic combined systolic (congestive) and diastolic (congestive) heart failure Status: Acute Assessment and Plan: Patient recently started on bumetanide according to medical records. Continue bumetanide 2 mg IV push b.i.d.. Continue carvedilol (6) Obstructive sleep apnea: Code(s): G47.33 - Obstructive sleep apnea (adult) (pediatric) Status: Acute Assessment and Plan: Patient on trilogy at home. Continue BiPAP at night and during naps. (7) Myelodysplastic syndrome: Code(s): D46.9 - Myelodysplastic syndrome, unspecified Status: Acute Assessment and Plan: According to heme Onc notes patient is undergoing chemotherapy Unchanged (8) Chronic anemia: Code(s): D64.9 - Anemia, unspecified Status: Acute Assessment and Plan: Moderate anemia hemoglobin of 9.8. Anemia is macrocytic and normochromic. Check B12 and folate. Patient may need folinic acid. (9) Type 2 diabetes mellitus: Code(s): E11.9 - Type 2 diabetes mellitus without complications Status: Acute Assessment and Plan: Will hold metformin while inpatient. Insulin sliding scale as needed Accu-Cheks AC and HS. Fasting blood glucose was 186. Accu-Chek was 131 today. (10) Nausea: Code(s): R11.0 - Nausea Status: Acute Assessment and Plan: Mild improvement after discontinuation of amiodarone. Liver ultrasound shows cholelithiasis. Will consult GI. Subjective Date/time seen: 08/20/21 13:30 S: Patient seen
--- NOTE | 2021-08-20 13:41 | WPDGICN ---
Assessment and Plan Assessment and plan (1) Nausea: Code(s): R11.0 - Nausea Status: Acute Assessment and Plan: patient states that has improved will continue with medical treatment including protonix, antiemetics prn he is not fit to undergo EGD this could be multifactorial given end stage CHF, respiratory failure, etc (2) Acute on chronic systolic and diastolic heart failure, NYHA class 4: Code(s): I50.43 - Acute on chronic combined systolic (congestive) and diastolic (congestive) heart failure Status: Acute Assessment and Plan: medical treatment by cardiology, on diuretics and dopamine gtt (3) Acute respiratory failure with hypoxia: Code(s): J96.01 - Acute respiratory failure with hypoxia Status: Acute Assessment and Plan: on treatment (4) Mitral regurgitation: Code(s): I34.0 - Nonrheumatic mitral (valve) insufficiency Status: Acute Assessment and Plan: affecting heart failure (5) Acute and chronic respiratory failure (udcbs-mj-ehjzshg): Qualifiers: Respiratory failure complication: unspecified whether with hypoxia or hypercapnia Qualified Code(s): J96.20 - Acute and chronic respiratory failure, unspecified whether with hypoxia or hypercapnia Code(s): J96.20 - Acute and chronic respiratory failure, unspecified whether with hypoxia or hypercapnia Status: Acute (6) Chronic kidney disease, stage 3: Code(s): N18.30 - Chronic kidney disease, stage 3 unspecified Status: Acute (7) ICD (implantable cardioverter-defibrillator) in place: Code(s): Z95.810 - Presence of automatic (implantable) cardiac defibrillator Status: Acute (8) Chronic anticoagulation: Code(s): Z79.01 - terminal manager (current) use of anticoagulants Status: Acute Assessment and Plan: given cardiac history on eliquis GI Consult Note Consult date/time: 08/20/21 13:41 Reason for consult: nausea HPI: Freddy Shiva Mireles Jr. is a 80 year old male with significant cardiac history including previous ventricular tachycardia, recurrent CHF with recent prolonged hospitalization at [facility], sleep apnea, chronic kidney disease, atrial fibrillation, ICD implantation. He was admitted again to the hospital 3 days ago with progressive weakness and failure to thrive, also had decreased appetite with nausea. p.o. intake. Chest x-ray reviewed and showed diffuse lung infiltrates consistent with pulmonary edema. He has been treated for advanced heart failure including iv diuretics and just recently started on dopamine gtt. I was called because nausea however this morning patient told me that improved, in fact he had toast for breakfast. Currently he is wearing his bipap machine and still with chronic shortness of breath. He does not remember if had EGD in the past. Review of Systems Constitutional: Constitutional: Reports fatigue and Reports weakness Eyes: Eyes: Reports no additional eye complaints ENT: Reports Normal hearing present Cardiovascular: Cardiovascular: Reports palpitations Respiratory: Respiratory: Reports dyspnea on exertion Gastrointestinal: Gastrointestinal: Reports nausea Genitourinary: Genitourinary: Denies dysuria Musculoskeletal: Musculoskeletal: Denies neck pain Integumentary/Breasts: Skin/Breast: Denies dry skin Neurologic: Denies headache(s) Psychiatric: Psychiatric: Denies behavioral changes [facility] Past Medical History Medical History (Updated 08/20/21 @ 11:06 by Beni Becker MD) Acute on chronic systolic and diastolic heart failure, NYHA class 4 Atrial fibrillation Benign prostatic hyperplasia Chronic anemia Chronic anticoagulation Chronic hypoxemic respiratory failure Chronic kidney disease, stage 3 Chronic respiratory failure with hypoxia Oxygen at 3 L per nasal cannula. Congestive heart failure Echocardiogram August 2020: EF of 45%, diastolic dysfunction with elevated left heart p
[2021-08-20] MEDS: DOPamine 400 MG/D5W 250 ML 400 MG/250 ML BAG 9.3 MG IV CONT (16:45)
[2021-08-20 17:25] LABS: Glucose Point of Care 152 mg/dl (65-105)
--- NOTE | 2021-08-20 18:59 | PM.CNPUL ---
History of Present Illness History of Present Illness Consult date: 08/22/21 Requesting physician: Erica Boss MD Chief complaint: Acute resp fail w/ hypoxia; CHF; Acute renal suffi Narrative: I saw the patient briefly Aug 20, did not complete the consult. Aug 22 he was changed to Hospice. Arron completing this note, not submitting charges without physical exam. 80-year-old male with a history of myelodysplastic syndrome, cardiomyopathy, atrial fibrillation, diabetes, COPD on 4-5 L nasal cannula 24/7for 2-3 years,NICOLE on CPAP plus 4 L for 2-3 years, ventricular tachycardia status post ICD who is followed in the Pulmonary Clinic. He was last seen in clinic Jun 07, 2021 for NICOLE on an AVAPS S/T device. He was in the hospital in June and admitted again. He coughs at times. His sputum is garcia and more abundant in the morning. He never has chest tightness. He is short of breath most of the time when walking up a hill or flight of stairs. He has moderately limited doing activities around the home. He is confident some of the time leaving his house. He does not sleep all that well but is better than it has been. He has plenty of energy to do the things that he needs to do. He uses Trelegy with infrequent use of albuterol. He needs a new albuterol sent to his pharmacy. Tobacco: 1959 to 1987, 1.5 ppd = 44 pack years. Patient denies vaping, illicit drug use, sandblasting, welding, asbestos were, professional painting. 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 [facility] Past Medical History Medical History (Updated 08/20/21 @ 11:06 by Beni Becker MD) Acute on chronic systolic and diastolic heart failure, NYHA class 4 Atrial fibrillation Benign prostatic hyperplasia Chronic anemia Chronic anticoagulation Chronic hypoxemic respiratory failure Chronic kidney disease, stage 3 Chronic respiratory failure with hypoxia Oxygen at 3 L per nasal cannula. Congestive heart failure Echocardiogram August 2020: EF of 45%, diastolic dysfunction with elevated left heart pressures, mild left atrial enlargement. Coronary artery disease Hyperlipidemia Hypertension Ischemic cardiomyopathy EF of 20-25% on cardiac catheterization June 2020. EF improved to 50 to 55% on echocardiogram Megaloblastic anemia Mitral regurgitation Obstructive sleep apnea Patient uses a trilogy while sleeping. Type 2 diabetes mellitus Hemoglobin A1c was 5.8% on 05/02/2021. Vitamin D deficiency Surgical History Surgical History History of angioplasty History of aortic valve replacement History of cardiac catheterization Right coronary intervention in the remote past, LAD intervention about 20 years ago. Repeat catheterization [facility] at [facility] with mid RCA intervention, catheterization June 2020 demonstrated EF of 20-25% with no new coronary artery occlusions History of coronary artery stent placement History of lumbar laminectomy Presence of biventricular AICD (~12/2019) Status post ablation of ventricular arrhythmia (~05/2020) [facility] Family History Family History Sibling Diabetes mellitus Mother Dementia Parkinsons disease Father Hypertension Chronic obstructive pulmonary disease Heart disease Sibling Diabetes mellitus Mother Parkinsons disease Dementia Father Hypertension Chronic obstructive pulmonary disease Heart disease Social History Social History Social History: The patient lives with his of 62 years. They have 2 living children(1 daughter in a car accident). 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 Patient used to smoke up to 2 packs of cigarettes a day for 40 years and quit 1987. He drinks 2 or 3 glasses a wine a week. No illicit substance a
[2021-08-20] MEDS: AMITRIPTYLINE HCL 25 MG TABLET PO (20:03)
[2021-08-20] MEDS: SENNA/DOCUSATE SODIUM TABLET 1 TAB PO (20:04)
[2021-08-20 20:21] LABS: Glucose Point of Care 129 mg/dl (65-105)
[2021-08-20 23:48] LABS: Vancomycin Trough 14.4 ug/mL (10.0-20.0)
[2021-08-21] VITALS (28 sets, daily range): BP systolic 93–129; BP diastolic 55–104; PULSE 76–98; RESP 18–30; TEMP 35.7–36.6; O2SAT 89–100
[2021-08-21] MEDS: IPRATROPIUM BR 0.02% INH SOLN 0.5 MG/2.5 ML VIAL 1 MG INHALATION ×4 (01:55→21:42)
--- NOTE | 2021-08-21 08:51 | PM.IMPN ---
Progress Note: A&P Assessment and Plan (1) Acute on chronic diastolic congestive heart failure, NYHA class 4: Code(s): I50.33 - Acute on chronic diastolic (congestive) heart failure Status: Acute Assessment and Plan: Acutely decompensated congestive heart failure, clinically improving slowly. With dopamine support and aggressive diuresis, urinary output has improved to 1.6 L overnight. C repeat chest x-ray suggests moderate improvement of bilateral pulmonary infiltrates. Repeat chest x-ray in a.m.. Mild hyponatremia at 1:30 a.m.. Creatinine stable at 1.5. Electrolytes are within acceptable range. Continue to monitor intake and output, still chemistry, daily weights. Continue aggressive diuresis Strict intake and output daily while monitoring serial chemistries closely. Echocardiogram April 11, 2021 shows left ventricular systolic function is normal, estimated at 50-55%. Right ventricle linear artifact suggesting ICD lead. Mild valve regurgitation. (2) Acute and chronic respiratory failure (bkkvo-[id number]): Qualifiers: Respiratory failure complication: unspecified whether with hypoxia or hypercapnia Qualified Code(s): J96.20 - Acute and chronic respiratory failure, unspecified whether with hypoxia or hypercapnia Code(s): J96.20 - Acute and chronic respiratory failure, unspecified whether with hypoxia or hypercapnia Status: Acute Assessment and Plan: Acute hypoxic hypercapnic respiratory failure secondary to COPD. Patient is on home noninvasive ventilator at night and p.r.n.. Currently patient's respiratory status is worsening and patient is BiPAP dependent most of the time. Patient is on trilogy at nighttime. Try and keep oxygen saturation above 90%. Pulmonary has been consulted. Appreciate their recommendation. (3) ICD (implantable cardioverter-defibrillator) in place: Code(s): Z95.810 - Presence of automatic (implantable) cardiac defibrillator Status: Acute Assessment and Plan: Patient had device interrogated and adjusted at [place] just recently according to medical record (4) Chronic kidney disease, stage 3: Code(s): N18.30 - Chronic kidney disease, stage 3 unspecified Status: Acute Assessment and Plan: BUN and creatinine at patient's baseline. Avoid nephrotoxic medication. Please renally dose medication. Continue to monitor (5) Chronic combined systolic and diastolic congestive heart failure: Code(s): I50.42 - Chronic combined systolic (congestive) and diastolic (congestive) heart failure Status: Acute Assessment and Plan: Patient recently started on bumetanide according to medical records. Continue bumetanide 2 mg IV push b.i.d.. Continue carvedilol (6) Obstructive sleep apnea: Code(s): G47.33 - Obstructive sleep apnea (adult) (pediatric) Status: Acute Assessment and Plan: Patient on trilogy at home. Continue BiPAP at night and during naps. (7) Myelodysplastic syndrome: Code(s): D46.9 - Myelodysplastic syndrome, unspecified Status: Acute Assessment and Plan: According to heme Onc notes patient is undergoing chemotherapy Unchanged (8) Chronic anemia: Code(s): D64.9 - Anemia, unspecified Status: Acute Assessment and Plan: Moderate anemia hemoglobin of 8.9. He has been slowly drifting since admission. Anemia is macrocytic and normochromic. Check B12 and folate. Patient may need folinic acid. (9) Type 2 diabetes mellitus: Code(s): E11.9 - Type 2 diabetes mellitus without complications Status: Acute Assessment and Plan: Will hold metformin while inpatient. Insulin sliding scale as needed Accu-Cheks AC and HS. Fasting blood glucose was 135. Accu-Chek was 157 today. (10) Nausea: Code(s): R11.0 - Nausea Status: Acute Assessment and Plan: Resolved. Liver ultrasound shows cholelithiasis. GI was consulted. Appgregorio
[2021-08-21 08:54] LABS: Glucose Point of Care 118 mg/dl (65-105)
[2021-08-21] MEDS: AMIODARONE HCL 200 MG TABLET PO ×2 (09:12→17:23)
[2021-08-21] MEDS: FERROUS SULFATE 324 MG TABLET PO ×2 (09:13→17:24)
[2021-08-21] MEDS: BUMETANIDE INJ 2.5 MG/10 ML VIAL 2 MG IV PUSH ×2 (09:13→17:23)
[2021-08-21] MEDS: carvediloL 3.125 MG TABLET PO ×2 (09:13→20:27)
[2021-08-21] MEDS: CYANOCOBALAMIN 500 MCG TABLET 1500 MCG PO ×2 (09:13→17:25)
[2021-08-21] MEDS: APIXABAN 5 MG TABLET PO ×2 (09:13→17:23)
[2021-08-21] MEDS: TAMSULOSIN HCL 0.4 MG CAPSULE PO (09:14)
[2021-08-21] MEDS: ROSUVASTATIN 5 MG TABLET PO (09:14)
[2021-08-21] MEDS: OMEGA 3 POLYUNSAT FATTY ACIDS 1 GM CAP 2 GM PO ×2 (09:15→17:22)
[2021-08-21] MEDS: ROFLUMILAST 500 MCG TABLET PO (09:15)
[2021-08-21] MEDS: SILVERGEL (ELTA) 45 ML 1 APPLIC TOPICAL (09:15)
[2021-08-21] MEDS: FINASTERIDE 5 MG TABLET PO (09:16)
[2021-08-21] MEDS: MEXILETINE HCL 150 MG CAPSULE BY MOUTH ×2 (09:16→17:24)
[2021-08-21] MEDS: CLOPIDOGREL BISULFATE 75 MG TABLET PO (09:17)
[2021-08-21] MEDS: PANTOPRAZOLE SODIUM IV 40 MG VIAL IV PUSH ×2 (09:17→20:27)
[2021-08-21] MEDS: CHOLECALCIFEROL 1,000 UNITS TABLET 2000 UNITS PO (09:17)
[2021-08-21] MEDS: PREGABALIN (*CRX) 50 MG CAPSULE 100 MG PO ×3 (09:18→17:22)
--- NOTE | 2021-08-21 10:03 | PM.PNCARD ---
Progress Note: A&P Assessment and Plan (1) Acute on chronic systolic and diastolic heart failure, NYHA class 4: Code(s): I50.43 - Acute on chronic combined systolic (congestive) and diastolic (congestive) heart failure Status: Acute Assessment and Plan: Progressively worsening. His oral intake has been down. Chest x-ray and CT scan though shows diffuse infiltrates. aggressive IV diuretics with Bumex 2 mg IV q.12. Some improvement noted by chest x-ray with the addition of ionotropic therapy. Continue aggressive IV diuretics. If any progress is being made, it is slow and minimal. Ordered Repeat CXR tomorrow (2) Nausea: Code(s): R11.0 - Nausea Status: Acute Assessment and Plan: ? Etiology. (3) Ischemic cardiomyopathy: Code(s): I25.5 - Ischemic cardiomyopathy Status: Chronic Assessment and Plan: EF around 40-45% (4) Hypertension: Code(s): I10 - Essential (primary) hypertension Status: Chronic Assessment and Plan: Controlled. Continue current meds. (5) DM2 (diabetes mellitus, type 2): Code(s): E11.9 - Type 2 diabetes mellitus without complications Status: Chronic (6) ICD (implantable cardioverter-defibrillator) in place: Code(s): Z95.810 - Presence of automatic (implantable) cardiac defibrillator Status: Acute Assessment and Plan: Function normally (7) History of ventricular tachycardia: Code(s): Z86.79 - Personal history of other diseases of the circulatory system Status: Acute Assessment and Plan: On amiodarone and mexiletine (8) Acute and chronic respiratory failure ([id number]): Qualifiers: Respiratory failure complication: unspecified whether with hypoxia or hypercapnia Qualified Code(s): J96.20 - Acute and chronic respiratory failure, unspecified whether with hypoxia or hypercapnia Code(s): J96.20 - Acute and chronic respiratory failure, unspecified whether with hypoxia or hypercapnia Status: Acute Assessment and Plan: Currently on BiPAP (9) Mitral regurgitation: Code(s): I34.0 - Nonrheumatic mitral (valve) insufficiency Status: Acute Assessment and Plan: This is worsened and significant. Likely least in part the cause of his recent decompensation. Unfortunately Mr. Mireles's prognosis is poor. Still wishes aggressive therapy for now. Subjective Date/time seen: 08/21/21 10:03 Interval history: Follow-up visit in this 80-year-old man with: History of ischemic heart disease as detailed in many previous notes. Patient also has many admissions with decompensated congestive heart failure as well as atrial and ventricular arrhythmias. Recent hospitalization in [place] for treatment of ventricular tachycardia. Presented to this hospital primarily with symptoms of nausea. Date of service 08/20/2021: Still is complaining of nausea. Has significant shortness of breath also. No edema. No chest pain Date of service 08/21/2021: Feels about the same. Still short of breath and unable to significantly wean oxygen need. No chest pain. No swelling. Review of Systems Review of Systems: All systems reviewed & are unremarkable except as noted in HPI and below Constitutional: Constitutional: Denies excessive sweating, Reports fatigue, Denies headache(s) and Reports weakness Eyes: Eyes: Denies blurry vision ENT: Reports Normal hearing present, Denies headache(s) and Denies neck pain Cardiovascular: Cardiovascular: Denies chest pain, Reports dyspnea and Reports dyspnea on exertion Respiratory: Respiratory: Reports dyspnea and Reports dyspnea on exertion Gastrointestinal: Gastrointestinal: Reports nausea Genitourinary: Genitourinary: Denies dysuria Musculoskeletal: Musculoskeletal: Denies neck pain Integumentary/Breasts: Skin/Breast: Denies dry skin Neurologic: Reports Normal hearing present, Denies headache(s)
[2021-08-21 10:28] LABS: Anion Gap 8 mmol/L (8-16); Blood Urea Nitrogen 46 mg/dL (9-20); Calcium 8.5 mg/dL (8.4-10.2); Carbon Dioxide 31 mmol/L (22-30); Chloride 91 mmol/L (98-107); Estimated CRCL calculation 39 ml/min; Estimated Glomerular Filt Rate 45; Glucose 135 mg/dL (65-110); Potassium 4.3 mmol/L (3.4-5.0); Sodium 130 mmol/L (137-145)
--- NOTE | 2021-08-21 10:34 | WPDGIPROGNO ---
Progress Note: A&P Assessment and Plan (1) Nausea: Code(s): R11.0 - Nausea Status: Acute Assessment and Plan: this is probably multifactorial and aggravated by respiratory distress with end-stage CHF patient today denies much of nausea today but still poor appetite continue medical support, ppi, antiemetics prn he is not a candidate for endoscopic evaluation Will follow peripherally, call if questions (2) Acute on chronic systolic and diastolic heart failure, NYHA class 4: Code(s): I50.43 - Acute on chronic combined systolic (congestive) and diastolic (congestive) heart failure Status: Acute Assessment and Plan: on inotropics and diuretics, cardiology on board (3) Mitral regurgitation: Code(s): I34.0 - Nonrheumatic mitral (valve) insufficiency Status: Acute Assessment and Plan: severe, poor prognosis (4) Acute respiratory failure with hypoxia: Code(s): J96.01 - Acute respiratory failure with hypoxia Status: Acute Assessment and Plan: on oxygen (5) History of ventricular tachycardia: Code(s): Z86.79 - Personal history of other diseases of the circulatory system Status: Acute (6) ICD (implantable cardioverter-defibrillator) in place: Code(s): Z95.810 - Presence of automatic (implantable) cardiac defibrillator Status: Acute (7) Chronic anticoagulation: 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 Review of Systems Review of Systems: All systems reviewed & are unremarkable except as noted in HPI and below Exam Narrative: Appears stated age Const: General: no acute distress, ill appearing chronically and uncomfortable Other: wearing oxygen HENMT: General nose exam: Normal nares present Eyes: Sclera: sclerae normal Neck: Neck: supple and no JVD Carotids: no bruits Chest: Other: No reproducible chest wall pain to palpation Resp: Auscultation: crackles Cardio: Rate: regular rate Other: Paced rhythm GI: Inspection: non-distended GI Palp: Yes Soft to palpation, No Tenderness to palpation present (GI) and No Guarding due to palpation present (GI) Auscultation: normal bowel sounds Skin: General skin exam: normal color Other: Extensive ecchymosis noted on his arms and legs Neuro: Cranial nerves: Yes Normal hearing present Cognition (Neuro): normal cognition Speech: normal speech Extrem: General: no edema Psych: Affect: normal affect Objective Data Vital Signs Vital Signs: Vital Signs - 24 hr 08/20/21 12:00 08/20/21 13:02 08/20/21 13:07 Temperature 97.2 F L Pulse Rate 89 89 89 Respiratory Rate 18 22 H 23 H Blood Pressure 96/56 L Pulse Oximetry 100 98 08/20/21 13:20 08/20/21 14:00 08/20/21 16:00 Temperature 97.2 F L Pulse Rate 90 89 89 Respiratory Rate 24 H 28 H Blood Pressure 104/61 Pulse Oximetry 94 95 08/20/21 16:45 08/20/21 16:47 08/20/21 16:48 Temperature Pulse Rate 90 89 90 Respiratory Rate Blood Pressure Pulse Oximetry 08/20/21 18:00 08/20/21 19:48 08/20/21 20:00 Temperature 99.3 F Pulse Rate 90 89 89 Respiratory Rate 24 H 24 H Blood Pressure 108/59 L Pulse Oximetry 98 98 08/20/21 20:03 08/20/21 21:39 08/20/21 21:47 Temperature Pulse Rate 89 90 90 Respiratory Rate 23 H 25 H Blood Pressure Pulse Oximetry 96 08/20/21 22:00 08/20/21 23:40 08/21/21 00:00 Temperature 98.4 F Pulse Rate 89 89 89 Respiratory Rate 22 H 24 H Blood Pressure 102/78 Pulse Oximetry 98 98 08/21/21 01:55 08/21/21 02:00 08/21/21 02:08 Temperature Pulse Rate 89 90 90 Respiratory Rate 28 H 27 H Blood Pressure Pulse Oximetry 100 08/21/21 03:57 08/21/21 04:00 08/21/21 04:55 Temperature 97 F L Pulse Rate 89 90 90 Respirat
[2021-08-21 12:55] LABS: Glucose Point of Care 157 mg/dl (65-105)
[2021-08-21 17:08] LABS: Glucose Point of Care 175 mg/dl (65-105)
[2021-08-21] MEDS: DOPamine 400 MG/D5W 250 ML 400 MG/250 ML BAG 9.3 MG IV CONT (17:21)
[2021-08-21] MEDS: SENNA/DOCUSATE SODIUM TABLET 1 TAB PO (20:26)
[2021-08-21] MEDS: AMITRIPTYLINE HCL 25 MG TABLET PO (20:27)
[2021-08-21 21:45] LABS: Glucose Point of Care 224 mg/dl (65-105)
[2021-08-22] VITALS (21 sets, daily range): BP systolic 94–101; BP diastolic 54–61; PULSE 81–99; RESP 17–23; TEMP 36–36.8; O2SAT 92–100
[2021-08-22] MEDS: IPRATROPIUM BR 0.02% INH SOLN 0.5 MG/2.5 ML VIAL 1 MG INHALATION ×3 (03:05→14:31)
[2021-08-22 06:08] LABS: Anion Gap 9 mmol/L (8-16); Blood Urea Nitrogen 46 mg/dL (9-20); Calcium 8.7 mg/dL (8.4-10.2); Carbon Dioxide 31 mmol/L (22-30); Chloride 92 mmol/L (98-107); Estimated CRCL calculation 34 ml/min; Estimated Glomerular Filt Rate 39; Glucose 162 mg/dL (65-110); Potassium 3.7 mmol/L (3.4-5.0); Sodium 132 mmol/L (137-145)
[2021-08-22] MEDS: FERROUS SULFATE 324 MG TABLET PO (08:32)
[2021-08-22] MEDS: CYANOCOBALAMIN 500 MCG TABLET 1500 MCG PO (08:32)
[2021-08-22] MEDS: OMEGA 3 POLYUNSAT FATTY ACIDS 1 GM CAP 2 GM PO (08:33)
[2021-08-22] MEDS: AMIODARONE HCL 200 MG TABLET PO (08:33)
[2021-08-22] MEDS: MEXILETINE HCL 150 MG CAPSULE BY MOUTH (08:34)
[2021-08-22] MEDS: carvediloL 3.125 MG TABLET PO (08:34)
[2021-08-22] MEDS: TAMSULOSIN HCL 0.4 MG CAPSULE PO (08:34)
[2021-08-22] MEDS: ROFLUMILAST 500 MCG TABLET PO (08:34)
[2021-08-22] MEDS: CHOLECALCIFEROL 1,000 UNITS TABLET 2000 UNITS PO (08:34)
[2021-08-22] MEDS: BUMETANIDE INJ 2.5 MG/10 ML VIAL 2 MG IV PUSH (08:34)
[2021-08-22] MEDS: CLOPIDOGREL BISULFATE 75 MG TABLET PO (08:34)
[2021-08-22] MEDS: APIXABAN 5 MG TABLET PO (08:35)
[2021-08-22] MEDS: FINASTERIDE 5 MG TABLET PO (08:35)
[2021-08-22] MEDS: SILVERGEL (ELTA) 45 ML 1 APPLIC TOPICAL (08:35)
[2021-08-22] MEDS: PANTOPRAZOLE SODIUM IV 40 MG VIAL IV PUSH (08:35)
[2021-08-22] MEDS: ROSUVASTATIN 5 MG TABLET PO (08:35)
[2021-08-22] MEDS: PREGABALIN (*CRX) 50 MG CAPSULE 100 MG PO ×2 (08:38→12:28)
--- NOTE | 2021-08-22 08:46 | PM.IMPN ---
Progress Note: A&P Assessment and Plan (1) Acute on chronic diastolic congestive heart failure, NYHA class 4: Code(s): I50.33 - Acute on chronic diastolic (congestive) heart failure Status: Acute Assessment and Plan: Acutely decompensated congestive heart failure, clinically improving slowly. Despite dopamine support and Iv diuretics, urinary output has dropped to a little less than 1 L overnight. C repeat chest x-ray suggests moderate left, small right pleural effusions. Diffuse bilateral edema or pneumonia, mild progression compared to 08/20/2021. Mild hyponatremia at 130, reflecting a prerenal state. Creatinine is worsening at 1.7. Electrolytes are within acceptable range. Continue to monitor intake and output, still chemistry, daily weights. Continue aggressive diuresis Strict intake and output daily while monitoring serial chemistries closely. Echocardiogram April 11, 2021 shows left ventricular systolic function is normal, estimated at 50-55%. Right ventricle linear artifact suggesting ICD lead. Mild valve regurgitation. (2) Acute and chronic respiratory failure ([id number]): Qualifiers: Respiratory failure complication: unspecified whether with hypoxia or hypercapnia Qualified Code(s): J96.20 - Acute and chronic respiratory failure, unspecified whether with hypoxia or hypercapnia Code(s): J96.20 - Acute and chronic respiratory failure, unspecified whether with hypoxia or hypercapnia Status: Acute Assessment and Plan: Worsening acute hypoxic hypercapnic respiratory failure secondary to COPD. Patient is on home noninvasive ventilator at night and p.r.n.. Currently patient's respiratory status is worsening and patient is BiPAP dependent most of the time. Patient is on trilogy at nighttime. Try and keep oxygen saturation above 90%. Pulmonary has been consulted. Appreciate their recommendation. (3) ICD (implantable cardioverter-defibrillator) in place: Code(s): Z95.810 - Presence of automatic (implantable) cardiac defibrillator Status: Acute Assessment and Plan: Patient had device interrogated and adjusted at [place] just recently according to medical record (4) Chronic kidney disease, stage 3: Code(s): N18.30 - Chronic kidney disease, stage 3 unspecified Status: Acute Assessment and Plan: BUN and creatinine at patient's baseline. Avoid nephrotoxic medication. Please renally dose medication. Continue to monitor (5) Chronic combined systolic and diastolic congestive heart failure: Code(s): I50.42 - Chronic combined systolic (congestive) and diastolic (congestive) heart failure Status: Acute Assessment and Plan: Patient recently started on bumetanide according to medical records. Continue bumetanide 2 mg IV push b.i.d.. Continue carvedilol (6) Obstructive sleep apnea: Code(s): G47.33 - Obstructive sleep apnea (adult) (pediatric) Status: Acute Assessment and Plan: Patient on trilogy at home. Continue BiPAP at night and during naps. (7) Myelodysplastic syndrome: Code(s): D46.9 - Myelodysplastic syndrome, unspecified Status: Acute Assessment and Plan: According to heme Onc notes patient is undergoing chemotherapy Unchanged (8) Chronic anemia: Code(s): D64.9 - Anemia, unspecified Status: Acute Assessment and Plan: Moderate anemia hemoglobin of 8.9. He has been slowly drifting since admission. Anemia is macrocytic and normochromic. Check B12 and folate. Patient may need folinic acid. (9) Type 2 diabetes mellitus: Code(s): E11.9 - Type 2 diabetes mellitus without complications Status: Acute Assessment and Plan: Will hold metformin while inpatient. Insulin sliding scale as needed Accu-Cheks AC and HS. Fasting blood glucose was 135. Accu-Chek was 157 today. (10) Nausea: Code(s): R11.0 - Nausea Status: Acute Assessmen
[2021-08-22 09:17] LABS: Glucose Point of Care 148 mg/dl (65-105)
--- NOTE | 2021-08-22 09:35 | PM.PNCARD ---
Progress Note: A&P Additional Plan 80-year-old man with: Ischemic heart disease ischemic LV dysfunction history of atrial and ventricular arrhythmias as well as chronically implanted ICD. Patient enters the hospital now with yet another of many exacerbations of CHF. He does have more significant mitral valve regurgitation on echo and on physical exam. Obviously he is not a candidate for mitral valve procedures or surgery. He is in my opinion at end-stage of his heart disease. I am going to stop the IV dopamine infusion since there has been no discernible benefit to that over the weekend. I did have a lengthy discussion with him today since I know him for many years about hospice level services. This is what would be required for him to go home for the end of his life. He understands this and will think about it. Sadly no other cardiac recommendations to make at this time Tony Miller MD [facility] Subjective Date/time seen: Date of service: 08/22/21 09:35 Interval history: Follow-up visit in this 80-year-old man with: History of ischemic heart disease as detailed in many previous notes. Patient also has many admissions with decompensated congestive heart failure as well as atrial and ventricular arrhythmias. Recent hospitalization in [place] for treatment of ventricular tachycardia. Presented to this hospital primarily with symptoms of nausea. Date of service 08/20/2021: Still is complaining of nausea. Has significant shortness of breath also. No edema. No chest pain Date of service 08/21/2021: Feels about the same. Still short of breath and unable to significantly wean oxygen need. No chest pain. No swelling. Date of service 08/22/2021: Patient still requiring BiPAP for oxygenation. Does not describe any new complaints. What has been asking for a couple of days now off it is possible for him to go home like this since he is correctly perceiving that he is in an end-stage situation. Over the weekend there has been minimal if any response to low-dose dopamine. Exam Narrative: Appears stated age Const: General: no acute distress and uncomfortable HENMT: General nose exam: Normal nares present Eyes: Sclera: sclerae normal Neck: Neck: supple and no JVD Carotids: no bruits Chest: Other: No reproducible chest wall pain to palpation Resp: Auscultation: crackles Cardio: Rate: regular rate Other: Paced rhythm GI: Auscultation: normal bowel sounds Skin: General skin exam: normal color Other: Extensive ecchymosis noted on his arms and legs Neuro: Cranial nerves: Yes Normal hearing present Cognition (Neuro): normal cognition Speech: normal speech Extrem: General: no edema Psych: Affect: normal affect Objective Data Vital Signs Vital Signs: Vital Signs - 24 hr 08/21/21 10:00 08/21/21 12:00 08/21/21 14:00 Temperature 36.6 C Pulse Rate 90 90 89 Respiratory Rate 20 Blood Pressure 108/61 Pulse Oximetry 93 08/21/21 15:01 08/21/21 16:00 08/21/21 17:21 Temperature 36.1 C L Pulse Rate 90 98 90 Respiratory Rate 23 H 24 H Blood Pressure 129/104 H Pulse Oximetry 93 89 L 08/21/21 17:23 08/21/21 17:24 08/21/21 18:00 Temperature Pulse Rate 90 90 90 Respiratory Rate Blood Pressure Pulse Oximetry 08/21/21 20:00 08/21/21 20:27 08/21/21 21:42 Temperature 36.4 C Pulse Rate 90 89 87 Respiratory Rate 20 20 Blood Pressure 93/57 L Pulse Oximetry 92 08/21/21 21:43 08/21/21 22:00 08/21/21 23:55 Temperature Pulse Rate 87 89 76 Respiratory Rate 20 20 Blood Pressure Pulse Oximetry 94 94 08/22/21 00:00 08/22/21 02:00 08/22/21 03:15 Temperature 36.7 C Pulse Rate 91 89 89 Respiratory Rate 21 H 20 Blood Pressure 101/56 L Pulse Oximetry 92 08/22/21 03:25 08/22/21 03:26 08/22/21 04:00 Temperature 36.8 C Pulse Rate 82 81 89 Respiratory Rate 20 20 20 Blood Pressure 100/55 L Pulse Oximetry 96 93 08/22/21 05:26 07/31
[2021-08-22 13:13] LABS: Glucose Point of Care 134 mg/dl (65-105)
--- NOTE | 2021-08-22 14:47 | PM.EVENT ---
Event Note Event Note Event Note: Patient had an episode of desaturation after BIPAP was removed for lunch. HE was made NPO; BIPAP was restarted. Shortly thereafter patient became agitated and was trying to remove BIPAP. was informed. She wants to explore goals of care. Hospice consult was ordered.
[2021-08-22] MEDS: LORazepam INJ (*CRX) 2 MG/ML VIAL 1 MG IV PUSH (15:02)
--- NOTE | 2021-08-22 15:05 | PC.NURSE ---
Addendum entered by Flor Joyce RN 08/22/21 15:06: Spoke with Torie, pt's /POA, regarding pt's increased confusion and dropping oxygen saturation. Placed pt on 10L HFNC so he could eat lunch, pt became increasingly short of breath and confused. Pt placed back on BiPAP. Pt continues to attempted to remove BiPAP. Torie informed of situation with pt. Torie and pt's daughter on phone and they wish to change code status to DNR and consult hospice. Dr. Boss notified of patient's increased confusion, removing BiPAP and family's wishes to make pt DNR with hospice consult. Dr. Boss put orders to for Ativan and hospice consult. Original Note: Spoke with Torie. pt's /POA, regarding pt's increased confusion
--- NOTE | 2021-08-22 16:12 | PM.DS ---
DS: Admitting Diagnosis Discharge Date 08/22/21 Admitting Diagnosis (1) Acute on chronic diastolic congestive heart failure, NYHA class 4: (2) Acute and chronic respiratory failure ([id number]): (3) ICD (implantable cardioverter-defibrillator) in place: (4) Chronic kidney disease, stage 3: (5) Chronic combined systolic and diastolic congestive heart failure: (6) Obstructive sleep apnea: (7) Myelodysplastic syndrome: (8) Chronic anemia: (9) Type 2 diabetes mellitus: DS: Discharge Diagnosis Discharge Diagnosis (1) Acute on chronic diastolic congestive heart failure, NYHA class 4: Code(s): I50.33 - Acute on chronic diastolic (congestive) heart failure Status: Acute Assessment and Plan: Acutely decompensated congestive heart failure, clinically improving slowly. Despite dopamine support and Iv diuretics, urinary output has dropped to a little less than 1 L overnight. C repeat chest x-ray suggests moderate left, small right pleural effusions. Diffuse bilateral edema or pneumonia, mild progression compared to 08/20/2021. Mild hyponatremia at 130, reflecting a prerenal state. Creatinine is worsening at 1.7. Electrolytes are within acceptable range. Continue to monitor intake and output, still chemistry, daily weights. Continue aggressive diuresis Strict intake and output daily while monitoring serial chemistries closely. Echocardiogram April 11, 2021 shows left ventricular systolic function is normal, estimated at 50-55%. Right ventricle linear artifact suggesting ICD lead. Mild valve regurgitation. (2) Acute and chronic respiratory failure ([id number]): Qualifiers: Respiratory failure complication: unspecified whether with hypoxia or hypercapnia Qualified Code(s): J96.20 - Acute and chronic respiratory failure, unspecified whether with hypoxia or hypercapnia Code(s): J96.20 - Acute and chronic respiratory failure, unspecified whether with hypoxia or hypercapnia Status: Acute Assessment and Plan: Worsening acute hypoxic hypercapnic respiratory failure secondary to COPD. Patient is on home noninvasive ventilator at night and p.r.n.. Currently patient's respiratory status is worsening and patient is BiPAP dependent most of the time. Patient is on trilogy at nighttime. Try and keep oxygen saturation above 90%. Pulmonary has been consulted. Appreciate their recommendation. (3) ICD (implantable cardioverter-defibrillator) in place: Code(s): Z95.810 - Presence of automatic (implantable) cardiac defibrillator Status: Acute Assessment and Plan: Patient had device interrogated and adjusted at [place] just recently according to medical record (4) Chronic kidney disease, stage 3: Code(s): N18.30 - Chronic kidney disease, stage 3 unspecified Status: Acute Assessment and Plan: BUN and creatinine at patient's baseline. Avoid nephrotoxic medication. Please renally dose medication. Continue to monitor (5) Chronic combined systolic and diastolic congestive heart failure: Code(s): I50.42 - Chronic combined systolic (congestive) and diastolic (congestive) heart failure Status: Acute Assessment and Plan: Patient recently started on bumetanide according to medical records. Continue bumetanide 2 mg IV push b.i.d.. Continue carvedilol (6) Obstructive sleep apnea: Code(s): G47.33 - Obstructive sleep apnea (adult) (pediatric) Status: Acute Assessment and Plan: Patient on trilogy at home. Continue BiPAP at night and during naps. (7) Myelodysplastic syndrome: Code(s): D46.9 - Myelodysplastic syndrome, unspecified Status: Acute Assessment and Plan: According to heme Onc notes patient is undergoing chemotherapy Unchanged (8) Chronic anemia: Code(s): D64.9 - Anemia, unspecified Status: Acute Assessment and Plan: Moderate anemia hemoglobin of 8.9. He has been slowly drift
[2021-08-22 17:18] LABS: Glucose Point of Care 223 mg/dl (65-105)
== END 2021-08-22 17:23 | disposition hospice, inpatient (51) | DRG 291 ==
LOC: ANHED 16:01 → ANHIMU 17:49
PROVIDERS: Internal Medicine; Admitting Provider Internal Medicine; Emergency Provider Emergency Medicine; PCP Internal Medicine; Visit Provider Internal Medicine
DX: I13.0 Hypertensive heart and chronic kidney disease with heart failure and stage 1 through stage 4 chronic kidney disease, or unspecified chronic kidney disease (principal); I50.43 Acute on chronic combined systolic (congestive) and diastolic (congestive) heart failure; J96.21 Acute and chronic respiratory failure with hypoxia; I48.20 Chronic atrial fibrillation, unspecified; J44.9 Chronic obstructive pulmonary disease, unspecified; I34.0 Nonrheumatic mitral (valve) insufficiency; E11.22 Type 2 diabetes mellitus with diabetic chronic kidney disease; I25.5 Ischemic cardiomyopathy; N18.30 Chronic kidney disease, stage 3 unspecified; E78.5 Hyperlipidemia, unspecified; Z20.822 Contact with and (suspected) exposure to COVID-19; I25.10 Atherosclerotic heart disease of native coronary artery without angina pectoris; R11.0 Nausea; N40.0 Benign prostatic hyperplasia without lower urinary tract symptoms; G47.33 Obstructive sleep apnea (adult) (pediatric); D53.1 Other megaloblastic anemias, not elsewhere classified; D46.9 Myelodysplastic syndrome, unspecified; E55.9 Vitamin D deficiency, unspecified; Z66 Do not resuscitate; Z95.2 Presence of prosthetic heart valve; Z95.5 Presence of coronary angioplasty implant and graft; Z79.01 Long term (current) use of anticoagulants; Z95.810 Presence of automatic (implantable) cardiac defibrillator; Z87.891 Personal history of nicotine dependence
CPT/HCPCS: 36415; 36600; 71045; 74176; 76705; 80048; 80053; 80202; 81001; 82805; 82948; 83690; 83880; 84484; 85025; 85027; 85610; 85730; 87040; 87147; 87181; 87186; 93005; 94002; 94003; 94640; 96365; 96366; 96367; 96368; 96375; 96376; 99291; A9270; C1751; C8929; C9113; C9803; G0378; J0456; J0692; J1265; J2060; J2405; J3370; Q9957; U0003; U0005

== ENCOUNTER 2021-08-22 16:45 | HOS | payer OTHER, MEDICARE, SELFPAY ==
[2021-08-22 20:00] VITALS: PULSE 90; RESP 25; O2SAT 98
[2021-08-22] MEDS: HYDROmorphone HCL INJ (*CRX) 1 MG/ML SYR IV PUSH (21:18)
[2021-08-22] MEDS: LORazepam INJ (*CRX) 2 MG/ML VIAL 1 MG IV PUSH (21:21)
--- NOTE | 2021-08-22 23:37 | PC.NURSE ---
This patient, Freddy Mireles Jr., was transferred to room 318 on 08/22/21 at 2302. Personal belongings sent with patient. Report given to CAITIE Samayoa. Appropriate documentation sent with patient.
--- NOTE | 2021-08-22 23:58 | PC.NURSE ---
Patient transferred from IMU to Room 318 at 11:15pm.
--- NOTE | 2021-08-23 04:04 | PC.NURSE ---
Called and spoke to patient's Torie and informed her patient at 2:34am. Also told her that patient has a watch and a ring in the safe on 3rd floor med surg.
--- NOTE | 2021-08-23 09:00 | PM.DDS ---
Discharge Summary Date and Time Date of : 08/23/21 Time of : 02:34 Provider Pronounced By: Kaylan Teran RNrelay adjuster Probable Cause of Probable Cause of : Acute on chronic respiratory failure. Summary Hospital Course: Acutely decompensated congestive heart failure, clinically worsening. Despite dopamine support and Iv diuretics, urinary output has been modest. A repeat chest x-ray suggests moderate left, small right pleural effusions. Diffuse bilateral edema or pneumonia, mild progression compared to 08/20/2021. Mild hyponatremia at 130, reflecting a prerenal state. Creatinine is worsening at 1.7. Despite the addition of the Dopamine, and aggressive diuresis, patient remains grossly fluid overloaded. He is dependent on the BiPAP around the clock. (2) Acute and chronic respiratory failure ([id number]): Qualifiers: Respiratory failure complication: unspecified whether with hypoxia or hypercapnia Qualified Code(s): J96.20 - Acute and chronic respiratory failure, unspecified whether with hypoxia or hypercapnia Code(s): J96.20 - Acute and chronic respiratory failure, unspecified whether with hypoxia or hypercapnia Status: Acute Assessment and Plan: His chronic acute hypoxic hypercapnic respiratory failure secondary to COPD; he has worsening hypoxia has not become dependent on BiPAP around the clock. Patient is not able to tolerate high-flow oxygen. His was contacted regularly worsening clinical status and need for tracheostomy and chronic intubation. Patient and his declined chronic respiratory assistance. A consult was placed with hospice care. Patient passed of acute on chronic respiratory failure at 2:34 a.m.. (3) ICD (implantable cardioverter-defibrillator) in place: Code(s): Z95.810 - Presence of automatic (implantable) cardiac defibrillator Status: Acute Assessment and Plan: Patient had device interrogated and adjusted at [place] just recently according to medical record (4) Chronic kidney disease, stage 3: Code(s): N18.30 - Chronic kidney disease, stage 3 unspecified Status: Acute Assessment and Plan: BUN and creatinine at patient's baseline. Avoid nephrotoxic medication. Please renally dose medication. Continue to monitor (5) Chronic combined systolic and diastolic congestive heart failure: Code(s): I50.42 - Chronic combined systolic (congestive) and diastolic (congestive) heart failure Status: Acute Assessment and Plan: Patient recently started on bumetanide according to medical records. Continue bumetanide 2 mg IV push b.i.d.. Continue carvedilol (6) Obstructive sleep apnea: Code(s): G47.33 - Obstructive sleep apnea (adult) (pediatric) Status: Acute Assessment and Plan: Patient on trilogy at home. Continue BiPAP at night and during naps. (7) Myelodysplastic syndrome: Code(s): D46.9 - Myelodysplastic syndrome, unspecified Status: Acute Assessment and Plan: According to heme Onc notes patient is undergoing chemotherapy Unchanged (8) Chronic anemia: Code(s): D64.9 - Anemia, unspecified Status: Acute Assessment and Plan: Moderate anemia hemoglobin of 8.9. He has been slowly drifting since admission. Anemia is macrocytic and normochromic. Check B12 and folate. Patient may need folinic acid. (9) Type 2 diabetes mellitus: Code(s): E11.9 - Type 2 diabetes mellitus without complications Status: Acute Assessment and Plan: Will hold metformin while inpatient. Insulin sliding scale as needed Accu-Cheks AC and HS. Fasting blood glucose was 135. Accu-Chek was 157 today. (10) Nausea: Code(s): R11.0 - Nausea Status: Acute Assessment and Plan: Resolved. Liver ultrasound shows cholelithiasis. GI was consulted. Appreciate recommendation. No indication for any intervention. Additional Data Confirmation of daja
--- NOTE | 2021-08-23 11:03 | PM.IMHP ---
H&P: HPI History of Present Illness Date/Time: 08/23/21 11:03 Chief Complaint: uncontrolled dyspnea Narrative: 80 yo gentleman was admitted to acute care with acute on chronic mixed systolic and diastolic chf. He was treated with diuresis and bipap. After transitioning to oxygen by MO at 10L on 08/22, a rapid response was called due to his being garcia and consfused. He resisted re-inititaion of bpiap. He was given lorazepam IV to calm him. He then bacame minimally responsive. PPS score of 10. Family opted for comfort care only. Review of Systems Review of Systems: ROS unobtainable: Yes unobtainable due to medical condition [facility] Past Medical History Medical History Acute on chronic systolic and diastolic heart failure, NYHA class 4 Atrial fibrillation Benign prostatic hyperplasia Chronic anemia Chronic anticoagulation Chronic hypoxemic respiratory failure Chronic kidney disease, stage 3 Chronic respiratory failure with hypoxia Oxygen at 3 L per nasal cannula. Congestive heart failure Echocardiogram August 2020: EF of 45%, diastolic dysfunction with elevated left heart pressures, mild left atrial enlargement. Coronary artery disease Hyperlipidemia Hypertension Ischemic cardiomyopathy EF of 20-25% on cardiac catheterization June 2020. EF improved to 50 to 55% on echocardiogram Megaloblastic anemia Mitral regurgitation Obstructive sleep apnea Patient uses a trilogy while sleeping. Type 2 diabetes mellitus Hemoglobin A1c was 5.8% on 05/02/2021. Vitamin D deficiency Surgical History Surgical History History of angioplasty History of aortic valve replacement History of cardiac catheterization Right coronary intervention in the remote past, LAD intervention about 20 years ago. Repeat catheterization 2017 at [facility] with mid RCA intervention, catheterization June 2020 demonstrated EF of 20-25% with no new coronary artery occlusions History of coronary artery stent placement History of lumbar laminectomy Presence of biventricular AICD (~12/2019) Status post ablation of ventricular arrhythmia (~05/2020) [facility] Family History Family History Sibling Diabetes mellitus Mother Dementia Parkinsons disease Father Hypertension Chronic obstructive pulmonary disease Heart disease Sibling Diabetes mellitus Mother Parkinsons disease Dementia Father Hypertension Chronic obstructive pulmonary disease Heart disease Social History Social History (Updated 08/23/21 @ 11:04 by Avtar Bledsoe MD) Social History: The patient lives with his of 62 years. They have 2 living children(1 daughter in a car accident). 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 Patient used to smoke up to 2 packs of cigarettes a day for 40 years and quit 1987. He drinks 2 or 3 glasses a wine a week. No illicit substance abuse. His Torie is his surrogate decision maker and he is now DNR. Smoking packs per day: 2 Smoking cigarettes per day: 40.0 Smoking status: Former smoker Spiritual care concerns: No Meds Home Medications and Allergies Home Medications Medication Instructions Recorded Confirmed Type finasteride 5 mg tablet 5 mg PO DAILY 09/10/19 08/17/21 History fenofibric acid (choline) 135 mg 135 mg PO DAILY 09/11/19 08/17/21 History capsule,delayed release omega3-dha 200 mg-epa 300 mg-othr 2 cap PO BID 09/11/19 08/17/21 History om3 100 mg-fish oil 1,000 mg capsule Eliquis 5 mg PO BID 12/18/19 08/17/21 History clopidogrel [Plavix] 75 mg PO DAILY #0 12/19/19 08/17/21 History cyanocobalamin (vitamin B-12) 1,500 mcg PO BID 12/19/19 08/17/21 History [Vitamin B-12] coenzyme Q10 [CoQ-10] 200 mg PO HS 12/21/19 08/17/21 History rosuvastatin 5
--- NOTE | 2021-08-23 11:11 | P.DN_ITS ---
Discharge Summary Date and Time Date of : 08/23/21 Time of : 02:34 Provider Pronounced By: Kaylan Teran RNendodontics dentist Probable Cause of Probable Cause of : acute hypoxic respiratory failure due to acute on chronic mixed systolic and diastolic congestive heart failure Summary Hospital Course: Admitted to inpatient hospice service due to uncontrolled dyspnea. Medications were titrated to comfort. Patient peacefully. Additional Data Confirmation of as documented by pronouncing clinician: Pupillary Reflex, Palpable Pulses, Response to Stimuli, Heart Tones and Breath Sounds Name of Provider Notified: Dr. Bledsoe notified by Jadyn BLOOD Time Provider Notified: 02:55 Provider Requests Autopsy: No Family Requests Autopsy: No Knit Goods Mender Notified: Yes Date [facility] Notified of : 08/23/21 Time [facility] Notified of : 03:05
== END 2021-08-23 02:34 | disposition expired | DRG 951 ==
LOC: ANH3MEDSUR 08-24 16:33 → ANHIMU 08-24 16:33
PROVIDERS: Admitting Provider Internal Medicine; PCP Internal Medicine; Visit Provider Internal Medicine
DX: Z51.5 Encounter for palliative care (principal); I50.43 Acute on chronic combined systolic (congestive) and diastolic (congestive) heart failure; J96.21 Acute and chronic respiratory failure with hypoxia; I13.0 Hypertensive heart and chronic kidney disease with heart failure and stage 1 through stage 4 chronic kidney disease, or unspecified chronic kidney disease; E87.1 Hypo-osmolality and hyponatremia; I48.20 Chronic atrial fibrillation, unspecified; E11.22 Type 2 diabetes mellitus with diabetic chronic kidney disease; N18.30 Chronic kidney disease, stage 3 unspecified; G47.33 Obstructive sleep apnea (adult) (pediatric); D46.9 Myelodysplastic syndrome, unspecified; D53.9 Nutritional anemia, unspecified; K80.20 Calculus of gallbladder without cholecystitis without obstruction; Z95.810 Presence of automatic (implantable) cardiac defibrillator; I25.10 Atherosclerotic heart disease of native coronary artery without angina pectoris; E78.5 Hyperlipidemia, unspecified; I25.5 Ischemic cardiomyopathy; E55.9 Vitamin D deficiency, unspecified; N40.0 Benign prostatic hyperplasia without lower urinary tract symptoms; Z66 Do not resuscitate; Z95.2 Presence of prosthetic heart valve; Z95.5 Presence of coronary angioplasty implant and graft; Z87.891 Personal history of nicotine dependence
CPT/HCPCS: A9270; J1170; J2060; J7050